=== PATIENT | female | born 1945 | race Caucasian/White ===

== ENCOUNTER 2016-11-16 13:11 | Inpatient (IN) | payer MEDICARE, OTHER ==
[2016-11-16] VITALS (8 sets, daily range): BP systolic 141–158; BP diastolic 78–82; PULSE 52–76; RESP 18–20; TEMP 98.1–99.1; O2SAT 94–98
[~2016-11-16] VITALS: Ht 157.5 cm; Wt 60.3 kg
[~2016-11-16 13:11] MED LIST: ACYC-101 PO; CALC1TAB30 PO; CLON.5 PO; DEPA250T2 PO; EFFE150C PO; ESTR2TAB4 PO; GABA300C5 PO; LACTCAP8 PO; LEVO75TA3 PO; MAGN500T4 PO; MULT-135 PO; NADO20TA PO; NALO1TAB2 PO; PRESCAP5 PO; REST0.05 EACH EYE; SERO50TA PO; STOO100C PO; TRAZ100T4 PO; [UNRECOGNIZED DRUG - CODE] IV
--- NOTE | 2016-11-16 14:23 | PD ---
HPI Chief Complaint: Respiratory Symptoms Time Seen by Provider: 14:06 Travel History International Travel<30 days: No Contact w/Intl Traveler<30days: No Traveled to known affect area: No History of Present Illness HPI 71 year-old woman presents emergency department complaining of 8 days of cough congestion and shortness of breath associated with some weight gain. She endorses subjective fevers and chills. Cough is nonproductive. She has had some associated chest pain with this as well. No definite sick contacts. She was given a prescription for some anti-tussis from her primary physician. No other complaints. History Past Medical History Narrative Medical Chronic back pain, with morphine pump, spinal stimulator Bipolar disorder Anxiety Mitral valve prolapse Menopausal: Yes Social History Alcohol Use: No Tobacco Use: No Allergies-Medications (Allergen,Severity, Reaction): Coded Allergies: Penicillin (Verified Allergy, Severe, hives, 11/16/16) Sulfa (Verified Allergy, Severe, hives, 11/16/16) Latex (Verified Allergy, Intermediate, rash, 11/16/16) Feldene (Verified Allergy, Unknown, 11/16/16) Flexeril (Unverified Adverse Reaction, Intermediate, PAU, 11/16/16) Vistaril (Unverified Adverse Reaction, Unknown, 11/16/16) Reported Meds & Prescriptions Reported Meds & Active Scripts Active Reported Vitamin D (Cholecalciferol) 2,000 Unit Cap 2,000 Units PO DAILY Epipen 2-Krish Inj (Epinephrine) 0.3 Mg/0.3 Ml Pfpen 0.3 Mg IM ONCE PRN Miralax Powder (Polyethylene Glycol 3350 Powder) 17 Gm Powd Unknown Dose PO DAILY PRN Mix and dissolve one measuring cap-ful (17 grams) in water or juice. Melatonin 3 Mg Cap 3 Mg PO HS Metamucil Original Texture (Psyllium Hydrophilic Mucilloid) 48.57 % Pow 1 Scoop PO BID 1 rounded TEASPOON in 8 oz of liquid at the first sign of irregularity. Biofreeze Topical (Menthol Topical) 4 % Gel 1 Applic TOPICAL DIRECTED PRN Colace (Docusate Sodium) 100 Mg Cap 100 Mg PO BID Zovirax (Acyclovir) 800 Mg Tab 800 Mg PO BID Morphine [employer]ECUTIVE [employer] PRESIDENT [employer]ES Inj (Morphine Sulfate) 30 Mg/30 Ml Vial Unknown Dose IV DIRECTED EXECUTIVE VICE PRESIDENT OF SALES Movantik (Naloxegol) 25 Mg Tab 25 Mg PO HS Probiotic (Lactobacillus Acidophilus) 1 Cap Cap 1 Cap PO DAILY Nadolol 20 Mg Tab 20 Mg PO DAILY Levothyroxine (Levothyroxine Sodium) 75 Mcg Tab 75 Mcg PO DAILY Gabapentin 300 Mg Cap 300 Mg PO BID Estrace (Estradiol) 2 Mg Tab 2 Mg PO DAILY Seroquel (Quetiapine Fumarate) 50 Mg Tab 50 Mg PO HS Klonopin (Clonazepam) 0.5 Mg Tab 0.5 Mg PO BID Effexor XR 24 HR (Venlafaxine HCl) 150 Mg Cap 150 Mg PO DAILY Depakote DR (Divalproex Sodium) 250 Mg Tabdr 750 Mg PO HS Restasis Opth Drops (Cyclosporine Opth Drops) 0.05% Emul 1 Drop EACH EYE BID Preservision Areds 2 (Multiple Vitamins W/ Minerals) 1 Cap 1 Cap PO BID Review of Systems Except as stated in HPI: all other systems reviewed are Neg Physical Exam Narrative GENERAL: Well-appearing 71 year-old woman, mild respiratory distress. Heavy, almost exaggerated breathing. SKIN: Warm and dry. HEAD: Atraumatic. Normocephalic. EYES: Pupils equal and round. No scleral icterus. No injection or drainage. ENT: No nasal bleeding or discharge. Mucous membranes pink and moist. NECK: Trachea midline. No JVD. CARDIOVASCULAR: Regular rate and rhythm. No murmur appreciated. RESPIRATORY: Lungs are clear to auscultation. Patient able to speak in full sentences. She has heavy, somewhat exaggerated breathing when being observed. GASTROINTESTINAL: Abdomen soft, non-tender, nondistended. Hepatic and splenic margins not palpable. MUSCULOSKELETAL: No obvious deformities. No edema. NEUROLOGICAL: Awake and alert. No obvious cranial nerve deficits. Motor grossly within normal limits. Normal speech. Data Data Last Documented VS Vital Signs Date Time Temp Pulse Resp B/P Pulse Ox O2 Delivery O2 Flow Rate FiO2 11/16/16 17:21 76 18 149/81 98 Room Air 11/16/16 13:29 99.1 Orders Complete Blood Count With Diff (11/16/16 14:16) Comprehensive Metabolic Panel (11/16/16 14:16) Troponin I (11/16/16 14:16) B-Type Natriuretic Peptide (11/16/16 14:16) Chest, Pa & Lat (11/16/16 ) Electrocardiogram (11/16/16 ) Iv Access Insert/Monitor (11/16/16 14:16) Furosemide Inj (Lasix Inj) (11/16/16 15:45) Ed Poc Ultrasound (11/16/16 ) Levofloxacin 750 Mg Premix Inj (Levaquin (11/16/16 16:30) Labs Laboratory Tests Test 11/16/16 14:55 White Blood Count 11.9 TH/MM3 Red Blood Count 2.95 MIL/MM3 Hemoglobin 9.7 GM/DL Hematocrit 28.8 % Mean Corpuscular Volume 97.8 FL Mean Corpuscular Hemoglobin 32.9 PG Mean Corpuscular Hemoglobin 33.6 % Concent Red Cell Distribution Width 12.3 % Platelet Count 582 TH/MM3 Mean Platelet Volume 7.1 FL Neutrophils (%) (Auto) 71.6 % Lymphocytes (%) (Auto) 13.3 % Monocytes (%) (Auto) 9.9 % Eosinophils (%) (Auto) 1.4 % Basophils (%) (Auto) 3.8 % Neutrophils # (Auto) 8.4 TH/MM3 Lymphocytes # (Auto) 1.6 TH/MM3 Monocytes # (Auto) 1.2 TH/MM3 Eosinophils # (Auto) 0.2 TH/MM3 Basophils # (Auto) 0.5 TH/MM3 CBC Comment DIFF FINAL Differential Comment Sodium Level 127 MEQ/L Potassium Level 4.3 MEQ/L Chloride Level 87 MEQ/L Carbon Dioxide Level 31.3 MEQ/L Anion Gap 9 MEQ/L Blood Urea Nitrogen 12 MG/DL Creatinine 0.62 MG/DL Estimat Glomerular Filtration 95 ML/MIN Rate Random Glucose 83 MG/DL Calcium Level 8.5 MG/DL Total Bilirubin 0.3 MG/DL Aspartate Amino Transf 17 U/L (AST/SGOT) Alanine Aminotransferase 24 U/L (ALT/SGPT) Alkaline Phosphatase 95 U/L Troponin I LESS THAN 0.02 NG/ML B-Type Natriuretic Peptide 166 PG/ML Total Protein 7.3 GM/DL Albumin 2.7 GM/DL [facility] Medical Decision Making Medical Screen Exam Complete: Yes Emergency Medical Condition: Yes Interpretation(s) LABS: CBC remarkable for mild anemia. CMP unremarkable Troponin negative BNP 166 Differential Diagnosis Bronchitis, pulmonary edema, anxiety, URI, other Narrative Course Medical decision making INITIAL: This a 71-year-old woman who presents to the emergency department complaining of cough congestion fevers chills shortness of breath and chest pain. She looks well. She doesn't really seem to be in any respiratory distress. She's been on Lasix intermittently in the past. She may have some element of fluid retention given her reported weight gain. We'll check labs EKG chest x-ray, reassess. Likely treatment for bronchitis plus or minus a short course of diuretics. Procedures Procedure Narrative Point of care ultrasound: Focus transthoracic ultrasounds performed immediate the bedside to evaluate for presence or absence of pleural effusion. Trace right pleural effusion was seen , moderate size left pleural effusion was seen, small to moderate pericardial effusion was seen. Diagnosis Primary Impression: Shortness of breath Additional Impressions: Pneumonia Qualified Code: J18.1 - Pneumonia of right lower lobe due to infectious organism Pleural effusion Jackson Winchester MD Nov 16, 2016 14:23
[2016-11-16] MEDS ORDERED: VITA200013 PO (14:55)
[2016-11-16] MEDS ORDERED: EPIP0.3I IM (14:55)
[2016-11-16] MEDS ORDERED: MELA3CAP PO (14:55)
[2016-11-16] MEDS ORDERED: COLA100C3 PO (14:55)
[2016-11-16] MEDS ORDERED: META48.53 PO (14:55)
[2016-11-16] MEDS ORDERED: MENT4GEL2 TOPICAL (14:55)
[2016-11-16] MEDS ORDERED: MIRA33504 PO (14:55)
[2016-11-16 15:13] LABS: AUTOMATED NEUTROPHIL # 8.4 TH/MM3 (1.8-7.7); BASOPHIL # 0.5 TH/MM3 (0-0.2); BASOPHIL % 3.8 % (0.0-2.0); CHLORIDE 87 MEQ/L (98-107); EOSINOPHIL # 0.2 TH/MM3 (0-0.4); EOSINOPHIL % 1.4 % (0.0-4.0); HEMATOCRIT 28.8 % (35.0-46.0); HEMO FLAGS DIFF FINAL; LYMPH % 13.3 % (9.0-44.0); LYMPHOCYTE # 1.6 TH/MM3 (1.0-4.8); MEAN CELL VOLUME 97.8 FL (80.0-100.0); MEAN CORPUSCULAR HEMOGLOBIN 32.9 PG (27.0-34.0); MEAN CORPUSCULAR HGB CONC 33.6 % (32.0-36.0); MONO % 9.9 % (0.0-8.0); NEUT % 71.6 % (16.0-70.0); PLATELET COUNT 582 TH/MM3 (150-450); POTASSIUM 4.3 MEQ/L (3.5-5.1); RED BLOOD COUNT 2.95 MIL/MM3 (4.00-5.30); RED CELL DISTRIBUTION WIDTH 12.3 % (11.6-17.2); SODIUM (NA) 127 MEQ/L (136-145); WHITE BLOOD COUNT 11.9 TH/MM3 (4.0-11.0)
[2016-11-16 15:18] LABS: ANION GAP 9 MEQ/L (5-15); BICARBONATE 31.3 MEQ/L (21.0-32.0); BLOOD UREA NITROGEN 12 MG/DL (7-18)
[2016-11-16 15:21] LABS: ALT (GPT) 24 U/L (10-53); AST (GOT) 17 U/L (15-37); GLOMERULAR FILTRATION RATE 95 ML/MIN (>89)
[2016-11-16 15:22] LABS: TOTAL BILIRUBIN ADULT 0.3 MG/DL (0.2-1.0)
[2016-11-16 15:23] LABS: ALKALINE PHOSPHATASE 95 U/L (45-117)
[2016-11-16] MEDS ORDERED: FUROSEMIDE 20 MG/2 ML VIAL IV PUSH ONE (15:45)
--- NOTE | 2016-11-16 15:45 | RADHPO ---
EXAM DATE/TIME: 11/16/2016 14:30 [facility] COMPARISON: CHEST SINGLE AP, March 27, 2016, 19:25. INDICATIONS : Short of breath. Cough, congestion. MEDICAL HISTORY : Hyperthyroidism. Inflammatory bowel disease. Osteoporosis. Asthma. Arthritis. SURGICAL HISTORY : Tonsillectomy. Fusion, lumbar. Hysterectomy. Spinal cord stimulator. Breast augumenntation. ENCOUNTER: Initial ACUITY: 3 days PAIN SCORE: 8/10 LOCATION: Left chest FINDINGS: There is consolidation in the left lower lobe causing loss of delineation of the entire left hemidiap hragm and most of the left heart border. Patchy areas of infiltrate are present in the medial right lower lung. The upper lungs are clear. The heart is normal size. Stimulation electrode projects ov er the lower thoracic region. CONCLUSION: Lobar consolidation in the left lower lobe and patchy areas of infiltrate medial right lower lung. Alonso Cruz MD on November 16, 2016 at 15:42 Board Certified Radiologist. This report was verified electronically.
[2016-11-16] MEDS ORDERED: LEVOFLOXACIN 750 MG PREMIX INJ 150 ML IV ONE (16:30)
[2016-11-16] MEDS ORDERED: ONDANSETRON HCL 4 MG/2 ML VIAL IV PRN (17:30)
[2016-11-16] MEDS ORDERED: guaiFENesin/DEXTROMETHORPHAN 200 MG/20 MG/10 ML CUP PO PRN (17:30)
[2016-11-16] MEDS ORDERED: SODIUM CHLORIDE 0.9% FLUSH 5 ML FLUSH IV FLUSH PRN (17:30)
[2016-11-16] MEDS: ENOXAPARIN SODIUM 40 MG/0.4 ML SYRINGE SQ SCH (18:16)
--- NOTE | 2016-11-16 20:47 | RADHPO ---
EXAM DATE/TIME: 11/16/2016 19:49 [facility] COMPARISON: CHEST PA & LAT, November 16, 2016, 14:30. INDICATIONS : Tightness in chest. Evaluate for pleural effusion. RADIATION DOSE: 6.70 CTDIvol (mGy) MEDICAL HISTORY : None SURGICAL HISTORY : tens. ENCOUNTER: Initial ACUITY: 3 days PAIN SCALE: 3/10 LOCATION: chest TECHNIQUE: Volumetric scanning of the chest was performed. Using automated exposure control and adjustment of t he mA and/or kV according to patient size, radiation dose was kept as low as reasonably achievable to obtain optimal diagnostic quality images. FINDINGS: LUNGS: There is consolidation in the left lower lobe with air bronchograms and no central lesion. PLEURAE: Bilateral posterior layering pleural effusions are appreciated small on the right in the base and mil d on the left.. MEDIASTINUM: The heart and great vessels demonstrate no acute abnormality. There is no mediastinal or hilar lymph adenopathy. Moderate volume pericardial effusion. AXILLAE: Within normal limits. No lymphadenopathy. MUSCULOSKELETAL: Within normal limits for patient age. MISCELLANEOUS: The visualized upper abdominal organs demonstrate no acute abnormality. CONCLUSION: Left lower lobe consolidation with air bronchograms. No central obstructing lesion. Bilateral pleural effusions slightly larger on the left than the right. Moderate to large sized pericardial effusion. Scott Messina MD on November 16, 2016 at 20:43 Board Certified Radiologist. This report was verified electronically.
[2016-11-16] MEDS: SODIUM CHLORIDE 0.9% FLUSH 5 ML FLUSH IV FLUSH SCH (20:49)
[2016-11-16] MEDS: RESP: ALBUTEROL 2.5 MG/IPRATROPIUM 0.5 MG NEB (PRN) INH (23:12)
[2016-11-17] VITALS (8 sets, daily range): BP systolic 130–164; BP diastolic 70–83; PULSE 59–82; RESP 18–20; TEMP 97.8–98.4; O2SAT 93–99
[2016-11-17] MEDS ORDERED: DOCUSATE SODIUM 100 MG CAP PO SCH (00:45)
[2016-11-17] MEDS ORDERED: QUEtiapine FUMARATE 25 MG TAB PO SCH (00:45)
[2016-11-17] MEDS ORDERED: clonazePAM 0.5 MG TAB PO ONE (01:00)
[2016-11-17] MEDS ORDERED: IBUPROFEN 400 MG TAB PO ONE (01:00)
[2016-11-17] MEDS: QUEtiapine FUMARATE 25 MG TAB PO SCH ×2 (01:17→20:26)
[2016-11-17] MEDS: GABAPENTIN 300 MG CAP PO SCH ×3 (01:18→20:26)
[2016-11-17] MEDS: ACYCLOVIR 800 MG TAB PO SCH ×3 (01:18→20:26)
[2016-11-17] MEDS: DIVALPROEX SODIUM DELAYED RELEASE 250 MG TAB PO SCH ×2 (01:18→20:27)
[2016-11-17] MEDS: LEVOTHYROXINE SODIUM 75 MCG TAB PO SCH (05:42)
[2016-11-17] MEDS: RESP: ALBUTEROL 2.5 MG/IPRATROPIUM 0.5 MG NEB (PRN) INH ×4 (06:14→21:18)
[2016-11-17] MEDS: DOCUSATE SODIUM 100 MG CAP PO SCH ×2 (09:00→20:26)
[2016-11-17] MEDS: VENLAFAXINE HCL XR 75 MG CAP PO SCH (09:00)
[2016-11-17] MEDS: LACTOBACILLUS ACIDOPHILUS TAB PO SCH (09:00)
[2016-11-17 09:02] LABS: AUTOMATED NEUTROPHIL # 6.1 TH/MM3 (1.8-7.7); BASOPHIL # 0.3 TH/MM3 (0-0.2); BASOPHIL % 2.8 % (0.0-2.0); EOSINOPHIL # 0.2 TH/MM3 (0-0.4); HEMATOCRIT 29.3 % (35.0-46.0); LYMPH % 21.7 % (9.0-44.0); LYMPHOCYTE # 2.1 TH/MM3 (1.0-4.8); MEAN CELL VOLUME 98.9 FL (80.0-100.0); MEAN CORPUSCULAR HGB CONC 33.3 % (32.0-36.0); MONO % 11.6 % (0.0-8.0); NEUT % 61.9 % (16.0-70.0); PLATELET COUNT 560 TH/MM3 (150-450); RED BLOOD COUNT 2.97 MIL/MM3 (4.00-5.30); RED CELL DISTRIBUTION WIDTH 12.6 % (11.6-17.2); WHITE BLOOD COUNT 9.8 TH/MM3 (4.0-11.0)
[2016-11-17 09:03] LABS: HEMO FLAGS DIFF FINAL
[2016-11-17] MEDS: NADOLOL 20 MG TAB PO SCH (09:08)
[2016-11-17] MEDS: clonazePAM 0.5 MG TAB PO SCH ×2 (09:09→20:26)
[2016-11-17] MEDS: SODIUM CHLORIDE 0.9% FLUSH 5 ML FLUSH IV FLUSH SCH ×2 (09:10→20:29)
[2016-11-17 09:15] LABS: POTASSIUM 4.5 MEQ/L (3.5-5.1)
[2016-11-17 09:18] LABS: BICARBONATE 33.7 MEQ/L (21.0-32.0)
--- NOTE | 2016-11-17 10:01 | HHI.HP ---
[facility] Service [place] [facility] Primary Care Physician Non-Staff Admission Diagnosis shortness of breath, pneumonia, pleural effusion Diagnoses: Chief Complaint: Chest pressure Travel History International Travel<30 Days: No Contact w/Intl Traveler <30 Da: No Traveled to Known Affected Are: No History of Present Illness Patient is a 71-year-old female with a known history of chronic back pain who recently had a viral syndrome. 8 days ago she saw her primary care provider for symptoms of upper respiratory tract infection. She was given Flonase and Tessalon Perles she is better however she began having subjective fevers and chills and some chest pressure which was worse when she was lying down for the last 3 days. 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 Patient did come to the emergency room and was found to have a pleural effusion as well as Miki effusion. On my review of CT thorax there is a moderate pericardial effusion initially. Patient did have signs and symptoms consistent with this including difficulty with lying down and the chest pressure located above the heart silhouette. She also had improvement of symptoms when she stood up or walked around. She is not hypoxemic or blood pressure stable. Patient is recommended for further evaluation the hospital due to possible parapneumonic effusion and pericardial effusion. Review of Systems Constitutional: DENIES: Diaphoretic episodes, Fatigue, Fever, Weight gain, Weight loss, Chills, Dizziness, Change in appetite, Night Sweats Endocrine: DENIES: Abnorml menstrual pattern, Heat/cold intolerance, Polydipsia , Polyuria, Polyphagia Eyes: DENIES: Blurred vision, Diplopia, Eye inflammation, Eye pain, Vision loss , Photosensitivity, Double Vision Ears, nose, mouth, throat: DENIES: Tinnitus, Hearing loss, Vertigo, Nasal discharge, Oral lesions, Throat pain, Hoarseness, Ear Pain, Running Nose, Epistaxis, Sinus Pain, Toothache, Odynophagia Respiratory: DENIES: Apneas, Cough, Snoring, Wheezing, Hemoptysis, Sputum production, Shortness of breath Cardiovascular: COMPLAINS OF: Chest pain, Dyspnea on Exertion Gastrointestinal: DENIES: Abdominal pain, Black stools, Bloody stools, Constipation, Diarrhea, Nausea, Vomiting, Difficulty Swallowing, Anorexia Genitourinary: DENIES: Abnormal vaginal bleeding, Dysmenorrhea, Dyspareunia, Sexual dysfunction, Urinary frequency, Urinary incontinence, Urgency, Hematuria , Dysuria, Nocturia, Vaginal discharge Musculoskeletal: DENIES: Joint pain, Muscle aches, Stiffness, Joint Swelling, Back pain, Neck pain Integumentary: DENIES: Abnormal pigmentation, Pruritus, Rash, Nail changes, Breast masses, Breast skin changes, Nipple discharge Hematologic/lymphatic: DENIES: Bruising, Lymphadenopathy Immunologic/allergic: DENIES: Eczema, Urticaria Neurologic: DENIES: Abnormal gait, Headache, Localized weakness, Paresthesias, Seizures, Speech Problems, Tremor, Poor Balance Psychiatric: COMPLAINS OF: Anxiety, DENIES: Confusion, Mood changes, Depression, Hallucinations, Agitation, Suicidal Ideation, Homicidal Ideation, Delusions Past Family Social History Past Medical History Back pain, bipolar disorder, hypothyroidism Past Surgical History Back surgery Morphine pump Reported Medications Reviewed in the medical record, recently was given Flonase and Tessalon for viral syndrome Allergies: Coded Allergies: Penicillin (Verified Allergy, Severe, hives, 11/16/16) Sulfa (Verified Allergy, Severe, hives, 11/16/16) Latex (Verified Allergy, Intermediate, rash, 11/16/16) Feldene (Verified Allergy, Unknown, 11/16/16) Flexeril (Unverified Adverse Reaction, Intermediate, PAU, 11/16/16) Vistaril (Unverified Adverse Reaction, Unknown, 11/16/16) Active Ordered Medications Reviewed in the medical record Family History Mother had hypertension Social History Lives with her , no tobacco or alcohol dependency Physical Exam Vital Signs Vital Signs Date Time Temp Pulse Resp B/P Pulse Ox O2 Delivery O2 Flow Rate FiO2 11/17/16 08:00 98.0 77 18 134/83 93 11/17/16 04:00 98.1 70 20 145/70 95 11/17/16 00:00 98.1 74 20 150/75 94 11/16/16 22:24 98.1 74 20 150/78 94 11/16/16 22:13 74 18 98 11/16/16 22:12 74 18 141/81 98 Room Air 11/16/16 20:44 74 18 147/80 98 Room Air 11/16/16 20:04 98 21 11/16/16 19:49 76 18 145/82 97 Room Air 11/16/16 19:48 18 97 Room Air 21 11/16/16 17:21 76 18 149/81 98 Room Air 11/16/16 17:00 98 21 11/16/16 13:29 99.1 52 18 158/80 95 Physical Exam GENERAL: This is a well-nourished, well-developed patient, in no apparent distress. SKIN: No rashes, ecchymoses or lesions. Cool and dry. HEAD: Atraumatic. Normocephalic. No temporal or scalp tenderness. EYES: Pupils equal round and reactive. Extraocular motions intact. No scleral icterus. No injection or drainage. ENT: Nose without bleeding, purulent drainage or septal hematoma. Throat without erythema, tonsillar hypertrophy or exudate. Uvula midline. Airway patent. NECK: Trachea midline. No JVD or lymphadenopathy. Supple, nontender, no meningeal signs. CARDIOVASCULAR: No murmurs gallops or rubs, clear S1 in 2/not muffled RESPIRATORY: Decreased breath sounds left base GASTROINTESTINAL: Abdomen soft, non-tender, nondistended. No hepato-splenomegaly , or palpable masses. No guarding. MUSCULOSKELETAL: Extremities without clubbing, cyanosis, or edema. No joint tenderness, effusion, or edema noted. No calf tenderness. Negative Homans sign bilaterally. NEUROLOGICAL: Awake and alert. Cranial nerves II through XII intact. Motor and sensory grossly within normal limits. Five out of 5 muscle strength in all muscle groups. Normal speech. Laboratory Laboratory Tests Test 11/16/16 11/17/16 14:55 08:50 White Blood Count 11.9 9.8 Red Blood Count 2.95 2.97 Hemoglobin 9.7 9.8 Hematocrit 28.8 29.3 Mean Corpuscular Volume 97.8 98.9 Mean Corpuscular Hemoglobin 32.9 33.0 Mean Corpuscular Hemoglobin 33.6 33.3 Concent Red Cell Distribution Width 12.3 12.6 Platelet Count 582 560 Mean Platelet Volume 7.1 7.0 Neutrophils (%) (Auto) 71.6 61.9 Lymphocytes (%) (Auto) 13.3 21.7 Monocytes (%) (Auto) 9.9 11.6 Eosinophils (%) (Auto) 1.4 2.0 Basophils (%) (Auto) 3.8 2.8 Neutrophils # (Auto) 8.4 6.1 Lymphocytes # (Auto) 1.6 2.1 Monocytes # (Auto) 1.2 1.1 Eosinophils # (Auto) 0.2 0.2 Basophils # (Auto) 0.5 0.3 CBC Comment DIFF FINAL DIFF FINAL Differential Comment Sodium Level 127 129 Potassium Level 4.3 4.5 Chloride Level 87 88 Carbon Dioxide Level 31.3 33.7 Anion Gap 9 7 Blood Urea Nitrogen 12 16 Creatinine 0.62 0.55 Estimat Glomerular Filtration 95 110 Rate Random Glucose 83 79 Calcium Level 8.5 8.4 Total Bilirubin 0.3 Aspartate Amino Transf 17 (AST/SGOT) Alanine Aminotransferase 24 (ALT/SGPT) Alkaline Phosphatase 95 Troponin I LESS THAN 0.02 B-Type Natriuretic Peptide 166 Total Protein 7.3 Albumin 2.7 Result Diagram: 11/17/16 0850 11/17/16 0850 Imaging Last Impressions Chest X-Ray 11/16/16 0000 Signed Impressions: Service Date/Time: October 14:30 - CONCLUSION: Lobar consolidation in the left lower lobe and patchy areas of infiltrate medial right lower lung. Alonso Cruz MD Chest CT 11/16/16 0000 Signed Impressions: Service Date/Time: October 19:49 - CONCLUSION: Left lower lobe consolidation with air bronchograms. No central obstructing lesion. Bilateral pleural effusions slightly larger on the left than the right. Moderate to large sized pericardial effusion. Scott Messina MD Assessment and Plan Problem List: (1) Pericardial effusion ICD Code: I31.3 Status: Acute Plan: Likely post viral 2 d echo pending Symptoms better after lasix Will follow for cardiac intervention s needed, currently BP and Resp are stable (2) Pneumonia ICD Code: J18.9 Status: Acute Plan: Cont levaquin follow clinically (3) Pleural effusion ICD Code: J90 Status: Acute Plan: Parapneumonic effusion Cont to treat with iv levaquin (4) Chronic pain syndrome ICD Code: G89.4 Status: Chronic Plan: Patient's with intrathecal pump and with home medications which will continue while here in the hospital (5) Bipolar 1 disorder ICD Code: F31.9 Status: Chronic Plan: We'll continue with home medications Seroquel, Klonopin, Effexor, Depakote Currently at baseline (6) Hyponatremia ICD Code: E87.1 Status: Acute Plan: Likely due to postviral syndrome and pneumonia. We'll continue to follow trend (7) Anemia ICD Code: D64.9 Status: Acute Plan: Likely chronic, workup in progress Physician Certification 2 Midnight Certification Type: Admission for Inpatient Services Order for Inpatient Services The services are ordered in accordance with Medicare regulations or non- Medicare payer requirements, as applicable. In the case of services not specified as inpatient-only, they are appropriately provided as inpatient services in accordance with the 2-midnight benchmark. Estimated LOS (days): 3 3 days is the estimated time the patient will need to remain in the hospital, assuming treatment plan goals are met and no additional complications. Post-Hospital Plan: Home Problem Qualifiers (1) Pneumonia: Qualified Code: J18.1 - Pneumonia of right lower lobe due to infectious organism Ariella Trent MD Nov 17, 2016 10:01
[2016-11-17] MEDS: LEVOFLOXACIN 750 MG PREMIX INJ 150 ML IV SCH (16:22)
[2016-11-17] MEDS: FAMOTIDINE 20 MG TAB PO SCH (16:22)
[2016-11-17] MEDS: ENOXAPARIN SODIUM 40 MG/0.4 ML SYRINGE SQ SCH (16:22)
[2016-11-17] MEDS: ACETAMINOPHEN 500 MG CPLT PO PRN (16:22)
--- NOTE | 2016-11-17 17:26 | EKG ---
Date Performed: 11/16/2016 Time Performed: 14:22:52 PTAGE: 71 years EKG: Sinus rhythm Short FL interval Extensive T wave changes are nonspecific Borderline ECG PREVIOUS TRACING : 03/27/2016 19.23 Since previous tracing, no significant change noted DOCTOR: Jasmine Lemus Interpretating Date/Time 11/17/2016 17:20:25
[2016-11-17] MEDS ORDERED: POLYETHYLENE GLYCOL 17 GM PKG PO ONE (20:00)
[2016-11-17] MEDS: RESTASIS 0.05% EACH EYE SCH (20:28)
[2016-11-17] MEDS: MOVANTIK 25 MG PO SCH (20:28)
[2016-11-17] MEDS ORDERED: DIVALPROEX SODIUM DELAYED RELEASE 250 MG TAB PO SCH (21:00)
[2016-11-18 00:15] VITALS: BP 155/85; PULSE 70; RESP 16; TEMP 98.6; O2SAT 97
[2016-11-18] MEDS: LEVOTHYROXINE SODIUM 75 MCG TAB PO SCH (06:22)
[2016-11-18] MEDS: RESP: ALBUTEROL 2.5 MG/IPRATROPIUM 0.5 MG NEB (PRN) INH ×4 (06:35→19:40)
[2016-11-18 08:00] VITALS: BP 143/83; PULSE 80; RESP 18; TEMP 95.8; O2SAT 95
[2016-11-18] MEDS: VENLAFAXINE HCL XR 75 MG CAP PO SCH (08:32)
[2016-11-18] MEDS: DOCUSATE SODIUM 100 MG CAP PO SCH (08:32)
[2016-11-18] MEDS: LACTOBACILLUS ACIDOPHILUS TAB PO SCH (08:33)
[2016-11-18] MEDS: GABAPENTIN 300 MG CAP PO SCH ×2 (08:33→21:10)
[2016-11-18] MEDS: NADOLOL 20 MG TAB PO SCH (08:33)
[2016-11-18] MEDS: clonazePAM 0.5 MG TAB PO SCH ×2 (08:34→21:10)
[2016-11-18] MEDS: ACYCLOVIR 800 MG TAB PO SCH ×2 (08:34→21:10)
[2016-11-18] MEDS: FAMOTIDINE 20 MG TAB PO SCH (08:34)
[2016-11-18] MEDS: RESTASIS 0.05% EACH EYE SCH ×2 (08:36→21:24)
[2016-11-18] MEDS: FUROSEMIDE 40 MG/4 ML VIAL IV PUSH SCH (08:37)
[2016-11-18] MEDS: SODIUM CHLORIDE 0.9% FLUSH 5 ML FLUSH IV FLUSH SCH ×2 (08:37→21:16)
[2016-11-18 08:50] LABS: CHLORIDE 88 MEQ/L (98-107); POTASSIUM 4.4 MEQ/L (3.5-5.1); SODIUM (NA) 128 MEQ/L (136-145)
[2016-11-18 08:54] LABS: ANION GAP 10 MEQ/L (5-15); BICARBONATE 30.1 MEQ/L (21.0-32.0); BLOOD UREA NITROGEN 24 MG/DL (7-18)
[2016-11-18 08:57] LABS: GLOMERULAR FILTRATION RATE 87 ML/MIN (>89)
[2016-11-18] MEDS ORDERED: POLYETHYLENE GLYCOL 17 GM PKG PO SCH (09:00)
--- NOTE | 2016-11-18 11:56 | EC ---
Study Study Date:11/17/2016 STUDY CONCLUSIONS SUMMARY - Procedure narrative: Transthoracic echocardiography. Image quality was good. Scanning was performed from the parasternal, apical, and subcostal acoustic windows. - Left ventricle: The cavity size was normal. Wall thickness was normal. Systolic function was normal. The estimated ejection fraction was in the range of 50% to 55%. Wall motion was normal; there were no regional wall motion abnormalities. - Aortic valve: Mild regurgitation. - Mitral valve: Trace regurgitation. - Pericardium, extracardiac: Moderate sized circumferential pericardial effusion with no echocardiographic evidence for tamponade. Specifically there is no right ventricular diastolic collapse, right atrial invagination, or variation in mitral E wave velocities greater than 25%. There is also a left pleural effusion. If LV function is below 40, please consider prescribing an ACEI or ARB or document rationale for non-use. PROCEDURE DATA STUDY STATUS: Elective. Procedure: Transthoracic echocardiography. Image quality was good. Scanning was performed from the parasternal, apical, and subcostal acoustic windows. Study completion: The patient tolerated the procedure well. Transthoracic echocardiography. M-mode, complete 2D, complete spectral Doppler, and color Doppler. Patient status: Inpatient. CARDIAC ANATOMY LEFT VENTRICLE: The cavity size was normal. Wall thickness was normal. Systolic function was normal. The estimated ejection fraction was in the range of 50% to 55%. Wall motion was normal; there were no regional wall motion abnormalities. AORTIC VALVE: Trileaflet; normal thickness leaflets. Doppler: Transvalvular velocity was within the normal range. There was no stenosis. Mild regurgitation. AORTA: Aortic root: The aortic root was normal in size. MITRAL VALVE: Structurally normal valve. Doppler: Transvalvular velocity was within the normal range. There was no evidence for stenosis. Trace regurgitation. LEFT ATRIUM: The atrium was normal in size. RIGHT VENTRICLE: The cavity size was normal. Wall thickness was normal. PULMONIC VALVE: Doppler: Transvalvular velocity was within the normal range. There was no evidence for stenosis. No regurgitation. TRICUSPID VALVE: Structurally normal valve. Doppler: Transvalvular velocity was within the normal range. No regurgitation. PULMONARY ARTERY: The main pulmonary artery was normal-sized. Systolic pressure was within the normal range. RIGHT ATRIUM: The atrium was normal in size. PERICARDIUM: Moderate sized circumferential pericardial effusion with no echocardiographic evidence for tamponade. Specifically there is no right ventricular diastolic collapse, right atrial invagination, or variation in mitral E wave velocities greater than 25%. There is also a left pleural effusion. SYSTEMIC VEINS: Inferior vena cava: The vessel was normal in size. Prepared and signed by Shaheed Villafuerte [id number]
[2016-11-18 12:00] VITALS: BP 138/80; PULSE 74; RESP 18; TEMP 97.8; O2SAT 95
[2016-11-18 12:13] LABS: TRANSFERRIN IRON PROFILE 171 MG/DL (200-360)
[2016-11-18 16:00] VITALS: BP 129/71; PULSE 56; RESP 20; TEMP 97.8; O2SAT 94
--- NOTE | 2016-11-18 16:56 | HHI.PR ---
Subjective Remarks Seen in follow-up for symptom pericardial effusion. Chest discomfort is better. Improved respiratory status. No hypoxemia no evidence of cardiac troponin on. Echocardiogram results reviewed with patient and she is requesting her ski molder to evaluate her which will be done. He also says she's having some leg spasms and will need medication for that. I did suggest patient try nonpharmacological therapy as she has polypharmacy already. Objective Vitals Vital Signs Date Time Temp Pulse Resp B/P Pulse Ox O2 Delivery O2 Flow Rate FiO2 11/18/16 12:00 97.8 74 18 138/80 95 11/18/16 08:00 95.8 80 18 143/83 95 11/18/16 04:00 11/18/16 00:15 98.6 70 16 155/85 97 11/17/16 21:18 95 21 11/17/16 20:00 98.1 59 18 164/75 98 I/O 11/17/16 11/17/16 11/17/16 11/18/16 11/18/16 11/18/16 07:00 15:00 23:00 07:00 15:00 23:00 Intake Total 840 ml 280 ml 720 ml Output Total 1 ml Balance 840 ml 280 ml 720 ml -1 ml Intake Oral 840 ml 280 ml 720 ml Stool Total 1 ml # Voids 5 6 1 # Bowel Movements 0 1 Result Diagram: 11/17/16 0850 11/18/16 0721 Objective Remarks GENERAL: This is a well-nourished, well-developed patient, in no apparent distress. CARDIOVASCULAR: Regular rate and rhythm without murmurs, gallops, or rubs. RESPIRATORY: Clear to auscultation. Breath sounds equal bilaterally. No wheezes , rales, or rhonchi. GASTROINTESTINAL: Abdomen soft, non-tender, nondistended. Normal active bowel sounds MUSCULOSKELETAL: Extremities without clubbing, cyanosis, or edema. NEURO: Alert & Oriented x4 to person, place, time, situation. Moves all ext x4 A/P Problem List: (1) Pericardial effusion ICD Code: I31.3 Status: Acute Plan: Likely post viral 2 d echo shows moderate pericardial effusion without tamponade, patient reports cardiac consultation Continue medical management Symptoms better after lasix Will follow for cardiac intervention s needed, currently BP and Resp status are stable (2) Pneumonia ICD Code: J18.9 Status: Acute (3) Pleural effusion ICD Code: J90 Status: Acute Plan: Status post Lasix, improved Cont to treat with iv levaquin (4) Chronic pain syndrome ICD Code: G89.4 Status: Chronic Plan: Patient's with intrathecal pump and with home medications which will continue while here in the hospital (5) Bipolar 1 disorder ICD Code: F31.9 Status: Chronic Plan: We'll continue with home medications Seroquel, Klonopin, Effexor, Depakote Currently at baseline (6) Hyponatremia ICD Code: E87.1 Status: Acute Plan: Improved Likely due to postviral syndrome and pneumonia. We'll continue to follow trend (7) Anemia ICD Code: D64.9 Status: Acute Plan: Likely chronic Chronic disease Problem Qualifiers (1) Pneumonia: Qualified Code: J18.1 - Pneumonia of right lower lobe due to infectious organism Ariella Trent MD Nov 18, 2016 16:56
[2016-11-18] MEDS: ENOXAPARIN SODIUM 40 MG/0.4 ML SYRINGE SQ SCH (17:18)
[2016-11-18] MEDS: LEVOFLOXACIN 750 MG PREMIX INJ 150 ML IV SCH (17:18)
[2016-11-18] MEDS: ACETAMINOPHEN 500 MG CPLT PO PRN (18:47)
[2016-11-18 19:40] VITALS: O2SAT 96
[2016-11-18 20:00] VITALS: BP 143/77; PULSE 74; RESP 18; TEMP 96.3; O2SAT 96
[2016-11-18] MEDS: QUEtiapine FUMARATE 25 MG TAB PO SCH (21:10)
[2016-11-18] MEDS: MOVANTIK 25 MG PO SCH (21:11)
[2016-11-18] MEDS: DIVALPROEX SODIUM DELAYED RELEASE 250 MG TAB PO SCH (21:14)
[2016-11-19 00:15] VITALS: BP 173/84; PULSE 66; RESP 20; TEMP 97.2; O2SAT 94
[2016-11-19 04:00] VITALS: BP 163/85; PULSE 67; RESP 18; TEMP 98.6; O2SAT 98
[2016-11-19] MEDS: LEVOTHYROXINE SODIUM 75 MCG TAB PO SCH (05:18)
[2016-11-19 08:00] VITALS: BP 150/93; PULSE 63; RESP 18; TEMP 96.9; O2SAT 97
[2016-11-19] MEDS ORDERED: SODIUM CHLORIDE 0.65% NASAL SPRAY 45 ML BTL EACH NARE PRN (08:15)
--- NOTE | 2016-11-19 08:23 | HHI.PR ---
Subjective Remarks Patient seen and evaluated today. Complaining of some sinus congestion and requesting Flonase nasal spray which she uses at home. Still complaining of some chest pressure regarding her breathing very deeply. Her blood pressure and oxygenation are not compromised at this point. Patient does likely have a viral related pericardial effusion and we are waiting cardiology follow-up for further recommendations Objective Vitals Vital Signs Date Time Temp Pulse Resp B/P Pulse Ox O2 Delivery O2 Flow Rate FiO2 11/19/16 04:00 98.6 67 18 163/85 98 11/19/16 00:15 97.2 66 20 173/84 94 11/18/16 20:00 96.3 74 18 143/77 96 11/18/16 19:47 20 11/18/16 19:40 96 21 11/18/16 16:00 97.8 56 20 129/71 94 11/18/16 12:00 97.8 74 18 138/80 95 I/O 11/18/16 11/18/16 11/18/16 11/19/16 11/19/16 11/19/16 07:00 15:00 23:00 07:00 15:00 23:00 Intake Total 720 ml 720 ml 0 ml Output Total 1 ml Balance 720 ml -1 ml 720 ml 0 ml Intake Oral 720 ml 720 ml IV Total 0 ml Stool Total 1 ml # Voids 6 1 5 # Bowel Movements 1 0 Result Diagram: 11/17/16 0850 11/18/16 0721 Objective Remarks GENERAL: This is a well-nourished, well-developed patient, in no apparent distress. CARDIOVASCULAR: Regular rate and rhythm without murmurs, gallops, or rubs. RESPIRATORY: Clear to auscultation. Breath sounds equal bilaterally. No wheezes , rales, or rhonchi. GASTROINTESTINAL: Abdomen soft, non-tender, nondistended. Normal active bowel sounds MUSCULOSKELETAL: Extremities without clubbing, cyanosis, or edema. NEURO: Alert & Oriented x4 to person, place, time, situation. Moves all ext x4 A/P Problem List: (1) Pericardial effusion ICD Code: I31.3 Status: Acute Plan: Likely post viral 2 d echo shows moderate pericardial effusion without tamponade, patient reports cardiac consultation Continue medical management Symptoms better after lasix Will follow for cardiac intervention as needed, currently BP and Resp status are stable (2) Pneumonia ICD Code: J18.9 Status: Acute Plan: Continue Levaquin IV for now (3) Pleural effusion ICD Code: J90 Status: Acute Plan: Status post Lasix, improved Cont to treat with iv levaquin Repeat chest x-ray pending (4) Chronic pain syndrome ICD Code: G89.4 Status: Chronic Plan: Patient's with intrathecal pump and with home medications which will continue while here in the hospital (5) Bipolar 1 disorder ICD Code: F31.9 Status: Chronic Plan: We'll continue with home medications Seroquel, Klonopin, Effexor, Depakote Currently at baseline (6) Hyponatremia ICD Code: E87.1 Status: Acute Plan: Improved Likely due to postviral syndrome and pneumonia. We'll continue to follow trend (7) Anemia ICD Code: D64.9 Status: Acute Plan: Likely chronic Chronic disease Problem Qualifiers (1) Pneumonia: Qualified Code: J18.1 - Pneumonia of right lower lobe due to infectious organism Ariella Trent MD Nov 19, 2016 08:23
[2016-11-19] MEDS: GABAPENTIN 300 MG CAP PO SCH (08:34)
[2016-11-19] MEDS: ACYCLOVIR 800 MG TAB PO SCH (08:35)
[2016-11-19] MEDS: clonazePAM 0.5 MG TAB PO SCH (08:35)
[2016-11-19] MEDS: LACTOBACILLUS ACIDOPHILUS TAB PO SCH (08:35)
[2016-11-19] MEDS: NADOLOL 20 MG TAB PO SCH (08:35)
[2016-11-19] MEDS: FAMOTIDINE 20 MG TAB PO SCH (08:35)
[2016-11-19] MEDS: VENLAFAXINE HCL XR 75 MG CAP PO SCH (08:36)
[2016-11-19] MEDS: FUROSEMIDE 40 MG/4 ML VIAL IV PUSH SCH (08:38)
[2016-11-19] MEDS: SODIUM CHLORIDE 0.9% FLUSH 5 ML FLUSH IV FLUSH SCH (08:41)
[2016-11-19] MEDS: RESTASIS 0.05% EACH EYE SCH (08:47)
[2016-11-19] MEDS ORDERED: FLUTICASONE PROPIONATE 50 MCG/ACT 16 GM NASAL SPRAY NASAL SCH (10:00)
--- NOTE | 2016-11-19 10:05 | MB ---
cc: RONEL MEMBRENO M.D. DATE OF CONSULTATION: 11/19/2016 REASON FOR CONSULTATION Pericardial effusion. HISTORY OF PRESENT ILLNESS The patient is a 71-year-old white female, apparently followed in our office by Dr. Sergio Goldman according to the patient, with a history of hypothyroidism, bipolar disorder, who presented to the emergency room in [place] mainly with complaints of increasing shortness of breath over the last several days, as well as a nonproductive cough, subjective fevers and chills. She denies hemoptysis. Over these last several days she has had a constant left upper chest heaviness which does increase when she takes deep breaths. Since coming into the hospital her dyspnea has improved. She denies dizziness, syncope, near-syncope, palpitations, pedal edema, orthopnea. PAST MEDICAL HISTORY 1. Hypothyroidism. 2. Bipolar disorder. 3. Chronic back pain. PAST SURGICAL HISTORY 1. DINESH-BSO. 2. Tonsillectomy and adenoidectomy. 3. Transfer of external rotator of the right hip the piriformis and release of the gemellus and piriformis muscles 03/24/03. 4. Spinal cord stimulator 1999 with two subsequent generator changes since that time. MEDICATIONS Cardiac medications at home: Nadolol 20 mg daily. ALLERGIES VISTARIL, FLEXERIL, FELDENE, LATEX, SULFA, PENICILLIN. FAMILY HISTORY The patient's mother sustained a stroke and had a pacemaker. SOCIAL HISTORY The patient denies alcohol or tobacco abuse. REVIEW OF SYSTEMS Review of systems as in the history of present illness, otherwise negative or noncontributory. She also denies headache or abdominal pain, diarrhea, melena, bright red blood per rectum. PHYSICAL EXAMINATION VITAL SIGNS: On physical examination her blood pressure is 163/85 with a pulse of 67, respirations 18. GENERAL: She is a well-developed, well-nourished white female, in no acute distress. HEENT: Jugular venous pressure is normal. Carotid pulses are 2+ bilaterally and without bruits. CHEST: Examination of the chest reveals clear lung welch. CARDIAC: On cardiac examination she has a regular rhythm and rate without S3-S4, murmur or rub. ABDOMEN: On abdominal examination she has a soft, nontender abdomen. Bowel sounds are present. There is no definite hepatosplenomegaly. EXTREMITIES: Examination of the extremities reveals no clubbing, cyanosis or edema. LABORATORY DATA Laboratory data includes WBC 9.8, hemoglobin 9.8, platelets 560, potassium 4.4, BUN 24, creatinine 0.67, troponin less than 0.02. IMAGING STUDIES Chest x-ray shows lobar consolidation in the left lower lobe and patchy areas of infiltrate in the medial right lower lung. EKG Shows sinus rhythm, nonspecific diffuse T-wave abnormalities. IMPRESSION Moderate-sized circumferential pericardial effusion with no evidence for tamponade in this 71-year-old white female with a history of hypothyroidism, bipolar disorder. The etiology of the pericardial effusion may be viral infection. She has had viral syndrome over the last few days. She has been afebrile with no evidence for leukocytosis here in the hospital. There is no evidence for acute coronary syndrome. The rest of her echocardiogram is unremarkable. No definite rub is audible on exam. Her EKG is not consistent with pericarditis. RECOMMENDATIONS 1. She can be discharged home today from a cardiac standpoint. 2. I have recommended she undergo repeat echo in about 3-4 weeks to make sure the pericardial fluid is decreasing in amount. Will have my office arrange this echo tomorrow. MD DOMENICA Corbett/MICHAEL /9:34 AM /9:54 AM JESSICA
[2016-11-19 12:00] VITALS: BP 138/75; PULSE 66; RESP 18; TEMP 97.4; O2SAT 98
[2016-11-19] MEDS: RESP: ALBUTEROL 2.5 MG/IPRATROPIUM 0.5 MG NEB (PRN) INH (13:22)
[2016-11-19 13:24] VITALS: O2SAT 97
--- NOTE | 2016-12-20 22:06 | HHI.DS ---
Discharge Summary Admission Date Nov 16, 2016 at 17:27 Discharge Date: Nov 19, 2016 Admitting Diagnosis shortness of breath, pneumonia, pleural effusion (1) Pericardial effusion ICD Code: I31.3 (2) Pneumonia ICD Code: J18.9 (3) Pleural effusion ICD Code: J90 (4) Chronic pain syndrome ICD Code: G89.4 (5) Bipolar 1 disorder ICD Code: F31.9 (6) Hyponatremia ICD Code: E87.1 (7) Anemia ICD Code: D64.9 Procedures none Brief History - From Admission Patient is a 71-year-old female with a known history of chronic back pain who recently had a viral syndrome. 8 days ago she saw her primary care provider for symptoms of upper respiratory tract infection. She was given Flonase and Tessalon Perles she is better however she began having subjective fevers and chills and some chest pressure which was worse when she was lying down for the last 3 days. 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 Patient did come to the emergency room and was found to have a pleural effusion as well as Miki effusion. On my review of CT thorax there is a moderate pericardial effusion initially. Patient did have signs and symptoms consistent with this including difficulty with lying down and the chest pressure located above the heart silhouette. She also had improvement of symptoms when she stood up or walked around. She is not hypoxemic or blood pressure stable. Patient is recommended for further evaluation the hospital due to possible parapneumonic effusion and pericardial effusion. Significant Findings echo Imaging Last Impressions Chest X-Ray 11/16/16 0000 Signed Impressions: Service Date/Time: October 14:30 - CONCLUSION: Lobar consolidation in the left lower lobe and patchy areas of infiltrate medial right lower lung. Alonso Cruz MD Chest CT 11/16/16 0000 Signed Impressions: Service Date/Time: October 19:49 - CONCLUSION: Left lower lobe consolidation with air bronchograms. No central obstructing lesion. Bilateral pleural effusions slightly larger on the left than the right. Moderate to large sized pericardial effusion. Scott Messina MD PE at Discharge GENERAL: This is a well-nourished, well-developed patient, in no apparent distress. CARDIOVASCULAR: Regular rate and rhythm without murmurs, gallops, or rubs. RESPIRATORY: Clear to auscultation. Breath sounds equal bilaterally. No wheezes , rales, or rhonchi. GASTROINTESTINAL: Abdomen soft, non-tender, nondistended. Normal active bowel sounds MUSCULOSKELETAL: Extremities without clubbing, cyanosis, or edema. NEURO: Alert & Oriented x4 to person, place, time, situation. Moves all ext x4 Pt update on day of discharge see progress note Hospital Course Patient mendez some SOB and was found to have pericardial effusion without cardiovascular effect. She was diuresed and also treated for pneumonia. She was seen by cardiology who advised outpatient Echo to follow up. Patient was informed and agreed to this plan and was discharged home Pt Condition on Discharge: Good Discharge Disposition: Discharge Home Discharge Time: > 30 minutes Discharge Instructions DIET: Follow Instructions for: As Tolerated, No Restrictions Activities you can perform: Regular-No Restrictions Activities to Avoid: Driving for 24 hrs Follow up Referrals: Cardiology - 3 Weeks @ [facility] Continued Medications: Acyclovir (Zovirax) 800 Mg Tab 800 MG PO BID Mgmt Viral Infection Ref 0 TAB Levothyroxine (Levothyroxine) 75 Mcg Tab 75 MCG PO DAILY Thyroid #30 Ref 0 TAB Morphine INDUSTRIAL HEALTH ENGINEER Inj (Morphine INDUSTRIAL HEALTH ENGINEER Inj) 30 Mg/30 Ml Vial Unknown Dose IV DIRECTED INDUSTRIAL HEALTH ENGINEER VIAL Quetiapine (Seroquel) 50 Mg Tab 50 MG PO HS #30 Ref 0 TAB Venlafaxine ER 24 HR (Effexor XR 24 HR) 150 Mg Cap 150 MG PO DAILY #30 Ref 0 CAP Ariella Trent MD Dec 20, 2016 22:06
== END 2016-11-19 17:30 | disposition home or self-care (01) | DRG 314 ==
LOC: PHED 13:11 → PHEDA 17:27 → PH3A 22:07
PROVIDERS: ADMIT Hospitalist; ATTEND Hospitalist
DX: I31.3 Pericardial effusion (noninflammatory) (principal); J18.1 Lobar pneumonia, unspecified organism; J90 Pleural effusion, not elsewhere classified; E87.1 Hypo-osmolality and hyponatremia; B34.9 Viral infection, unspecified; D64.9 Anemia, unspecified; E03.9 Hypothyroidism, unspecified; R07.89 Other chest pain; M54.9 Dorsalgia, unspecified; F31.9 Bipolar disorder, unspecified; G89.4 Chronic pain syndrome
CPT/HCPCS: 71020; 71250; 80048; 80053; 82607; 83540; 83550; 83880; 84484; 85025; 93005; 93306; 94640; 94664; 96365; 96375; J1650; J1940; J1956

== ENCOUNTER 2016-11-20 10:00 | Inpatient (IN) | payer MEDICARE, OTHER ==
[2016-11-20] VITALS (11 sets, daily range): BP systolic 115–159; BP diastolic 68–93; PULSE 125–140; RESP 14–35; TEMP 97.5–98.6; O2SAT 96–100
[~2016-11-20] VITALS: Ht 157.5 cm; Wt 62.4 kg
[~2016-11-20 10:00] MED LIST changes: -CALC1TAB30 PO; +COLA100C3 PO; +EPIP0.3I IM; -MAGN500T4 PO; +MELA3CAP PO; +MENT4GEL2 TOPICAL; +META48.53 PO; +MIRA33504 PO; -MULT-135 PO; +NITROGLYCERIN 50 MG/DEXTROSE 5% SOLN 250 ML BTL IV ONE; +PHENYLEPH/NS 1000 MCG/10 ML SYR IV ONE; +PROPOFOL 200 MG/20 ML AMP IV ONE; -STOO100C PO; -TRAZ100T4 PO; +VITA200013 PO
--- NOTE | 2016-11-20 10:05 | PD ---
HPI Chief Complaint: respiratory distress Time Seen by Provider: 10:04 Travel History International Travel<30 days: No Contact w/Intl Traveler<30days: No Traveled to known affect area: No History of Present Illness HPI 71-year-old female came to the emergency room brought by EMS with history of respiratory distress. Patient is awake but appears to be in significant distress. As per the paramedics patient was discharged from [facility] yesterday after being admitted for couple days for pneumonia. Patient told me that they saw some fluid around her heart. She was given diuretics and she was discharged home yesterday. However patient says that she never really felt 100% better and overnight shortness of breath worsened. She had a heart rate in the 140s when she arrived and diaphoretic. We short of breath at rest. Patient has history of chronic pain and has a spinal cord stimulator along with morphine pump. She says she had history of asthma as a child. No history of fever or chills. Patient says she was given antibiotics in the hospital but was not discharged home on prescriptions. Patient was unable to give much descriptive history given her respiratory distress status. Her oxygen saturation was 96-98%. [facility] Past Medical History Narrative Medical List of her past medical, surgical, social and family history is reviewed from the nursing note. Anemia: Yes Arthritis: Yes (thoracic and lumbar spine) Asthma: Yes (childhood) Autoimmune Disease: Yes (METABOLIC ENCEPHILITIS) Bipolar Disorder: Yes Anxiety: Yes Heart Rhythm Problems: No Cancer: No Cardiovascular Problems: No High Cholesterol: No Chest Pain: No Congestive Heart Failure: No COPD: No Cerebrovascular Accident: No Diabetes: No Diminished Hearing: No Endocrine: No Gastrointestinal Disorders: Yes GERD: No Glaucoma: No Genitourinary: No Headaches: Yes Hepatitis: No Hiatal Hernia: No Hypertension: No (DENIES) Immune Disorder: No Kidney Stones: No Musculoskeletal: Yes (arthritis) Neurologic: Yes (HEADACHES) Psychiatric: Yes (BIPOLAR) Reproductive: No Respiratory: Yes (ASTHMA) Immunizations Current: No Migraines: Yes Renal Failure: No Seizures: No Sleep Apnea: No Thyroid Disease: Yes Ulcer: No Menopausal: Yes Past Surgical History Abdominal Surgery: Yes AICD: No Body Medical Devices: SPINAL CORD STIMULATING LEADS AND GENERATOR Cardiac Surgery: No Ear Surgery: Yes (mass removed from right ear) Endocrine Surgery: No Eye Surgery: No Genitourinary Surgery: No Gynecologic Surgery: Yes (hysterectomy) Hysterectomy: Yes Joint Replacement: No Neurologic Surgery: Yes (TENS, SPINAL CORD STIMULATOR IMPL.) Oral Surgery: No Pacemaker: No Thoracic Surgery: No Tonsillectomy: Yes Other Surgery: Yes Social History Alcohol Use: No Tobacco Use: No Substance Use: No Allergies-Medications (Allergen,Severity, Reaction): Coded Allergies: Penicillin (Verified Allergy, Severe, hives, 11/20/16) Sulfa (Verified Allergy, Severe, hives, 11/20/16) Latex (Verified Allergy, Intermediate, rash, 11/20/16) Feldene (Verified Allergy, Unknown, 11/20/16) Flexeril (Unverified Adverse Reaction, Intermediate, PUA, 11/20/16) Vistaril (Unverified Adverse Reaction, Unknown, 11/20/16) Comments List of her allergies reviewed from the nursing note. Reported Meds & Prescriptions Reported Meds & Active Scripts Active Reported Vitamin D (Cholecalciferol) 2,000 Unit Cap 2,000 Units PO DAILY Epipen 2-Krish Inj (Epinephrine) 0.3 Mg/0.3 Ml Pfpen 0.3 Mg IM ONCE PRN Miralax Powder (Polyethylene Glycol 3350 Powder) 17 Gm Powd 17 Gm PO DAILY PRN Mix and dissolve one measuring cap-ful (17 grams) in water or juice. Melatonin 3 Mg Cap 3 Mg PO HS Metamucil Original Texture (Psyllium Hydrophilic Mucilloid) 48.57 % Pow 1 Scoop PO BID 1 rounded TEASPOON in 8 oz of liquid at the first sign of irregularity. Biofreeze Topical (Menthol Topical) 4 % Gel 1 Applic TOPICAL DIRECTED PRN Colace (Docusate Sodium) 100 Mg Cap 100 Mg PO BID Zovirax (Acyclovir) 800 Mg Tab 800 Mg PO BID Morphine [employer] Inj (Morphine Sulfate) 30 Mg/30 Ml Vial Unknown Dose IV DIRECTED [employer]UT[employer] GOV[employer]OR Movantik (Naloxegol) 25 Mg Tab 25 Mg PO HS Probiotic (Lactobacillus Acidophilus) 1 Cap Cap 1 Cap PO DAILY Nadolol 20 Mg Tab 20 Mg PO DAILY Levothyroxine (Levothyroxine Sodium) 75 Mcg Tab 75 Mcg PO DAILY Gabapentin 300 Mg Cap 300 Mg PO BID Estrace (Estradiol) 2 Mg Tab 2 Mg PO DAILY Seroquel (Quetiapine Fumarate) 50 Mg Tab 50 Mg PO HS Klonopin (Clonazepam) 0.5 Mg Tab 0.5 Mg PO BID Effexor XR 24 HR (Venlafaxine HCl) 150 Mg Cap 150 Mg PO DAILY Depakote DR (Divalproex Sodium) 250 Mg Tabdr 750 Mg PO HS Restasis Opth Drops (Cyclosporine Opth Drops) 0.05% Emul 1 Drop EACH EYE BID Preservision Areds 2 (Multiple Vitamins W/ Minerals) 1 Cap 1 Cap PO BID Narrative Medication List of her home medications reviewed from the nursing note. Review of Systems Except as stated in HPI: all other systems reviewed are Neg Physical Exam Narrative GENERAL: Awake, alert, significant distress, anxious SKIN: Pale and diaphoretic HEAD: Atraumatic. Normocephalic. EYES: Pupils equal and round. No scleral icterus. No injection or drainage. ENT: No nasal bleeding or discharge. Mucous membranes pink and moist. NECK: Trachea midline. JVD on 45 CARDIOVASCULAR: Regular rate and rhythm. Tachycardia. Muffled Heart sounds RESPIRATORY: No accessory muscle use. Clear to auscultation. Breath sounds equal bilaterally. GASTROINTESTINAL: Abdomen soft, non-tender, nondistended. Hepatic and splenic margins not palpable. MUSCULOSKELETAL: No obvious deformities. No clubbing. No cyanosis. No edema. NEUROLOGICAL: Awake and alert. No obvious cranial nerve deficits. Motor grossly within normal limits. Normal speech. PSYCHIATRIC: Appropriate mood and affect; insight and judgment normal. Data Data Last Documented VS Vital Signs Date Time Temp Pulse Resp B/P Pulse Ox O2 Delivery O2 Flow Rate FiO2 11/20/16 11:00 136 15 132/93 100 Nasal Cannula 2 11/20/16 10:10 97.8 Orders Complete Blood Count With Diff (11/20/16 10:15) Comprehensive Metabolic Panel (11/20/16 10:15) Prothrombin Time / Inr (Pt) (11/20/16 10:15) Troponin I (11/20/16 10:15) Urinalysis - C+S If Indicated (11/20/16 10:15) Blood Culture (11/20/16 10:15) Iv Access Insert/Monitor (11/20/16 10:15) Electrocardiogram (11/20/16 10:15) Ecg Monitoring (11/20/16 10:15) Oximetry (11/20/16 10:15) Oxygen Administration (11/20/16 10:15) Chest, Single Ap (11/20/16 10:15) Sodium Chloride 0.9% Flush (Ns Flush) (11/20/16 10:15) Westergren Sedimentation Rate (11/20/16 10:15) C-Reactive Protein (Crp) (11/20/16 10:15) Ed Poc Ultrasound (11/20/16 ) Sodium Chlor 0.9% 1000 Ml Inj (Ns 1000 M (11/20/16 10:15) Lidocai-Epi 1%-1:100,000 Inj (Xylocaine- (11/20/16 10:30) Wound [employer] Culture And Stain (11/20/16 11:13) Wound Culture And Gram Stain (11/20/16 11:13) Sodium Chlor 0.9% 1000 Ml Inj (Ns 1000 M (11/20/16 11:15) Type And Screen (11/20/16 11:13) Limited Echocardiogram (11/20/16 11:33) Consult Cardiology (11/20/16 ) Admit Order (Ed Use Only) (11/20/16 11:33) Labs Laboratory Tests Test 11/20/16 11/20/16 10:15 11:24 Erythrocyte Sedimentation Rate 55 mm/hr Prothrombin Time 12.2 SEC Prothromb Time International 1.1 RATIO Ratio Sodium Level 127 MEQ/L Potassium Level 4.6 MEQ/L Chloride Level 88 MEQ/L Carbon Dioxide Level 29.8 MEQ/L Anion Gap 9 MEQ/L Blood Urea Nitrogen 22 MG/DL Creatinine 0.73 MG/DL Estimat Glomerular Filtration 79 ML/MIN Rate Random Glucose 101 MG/DL Calcium Level 8.5 MG/DL Total Bilirubin 0.3 MG/DL Aspartate Amino Transf 59 U/L (AST/SGOT) Alanine Aminotransferase 42 U/L (ALT/SGPT) Alkaline Phosphatase 140 U/L Troponin I LESS THAN 0.02 NG/ML C-Reactive Protein 9.60 MG/DL B-Type Natriuretic Peptide 376 PG/ML Total Protein 6.9 GM/DL Albumin 2.3 GM/DL Thyroid Stimulating Hormone 3.070 uIU/ML 3rd Gen White Blood Count 11.9 TH/MM3 Red Blood Count 3.08 MIL/MM3 Hemoglobin 10.0 GM/DL Hematocrit 30.0 % Mean Corpuscular Volume 97.2 FL Mean Corpuscular Hemoglobin 32.3 PG Mean Corpuscular Hemoglobin 33.2 % Concent Red Cell Distribution Width 13.0 % Platelet Count 581 TH/MM3 Mean Platelet Volume 7.4 FL Neutrophils (%) (Auto) 72.1 % Lymphocytes (%) (Auto) 13.9 % Monocytes (%) (Auto) 12.3 % Eosinophils (%) (Auto) 1.1 % Basophils (%) (Auto) 0.6 % Neutrophils # (Auto) 8.6 TH/MM3 Lymphocytes # (Auto) 1.6 TH/MM3 Monocytes # (Auto) 1.5 TH/MM3 Eosinophils # (Auto) 0.1 TH/MM3 Basophils # (Auto) 0.1 TH/MM3 CBC Comment DIFF FINAL Differential Comment Blood Type A POSITIVE Antibody Screen NEGATIVE Blood Bank Comment MDM Medical Decision Making Medical Screen Exam Complete: Yes Emergency Medical Condition: Yes Medical Record Reviewed: Yes Interpretation(s) Twelve-lead EKG was reviewed by me. Normal sinus rhythm, tachycardia, artifact probably from spinal stimulator. Heart rate of 145 bpm. Differential Diagnosis Cardiac tamponade, large pericardial effusion, pneumonia Narrative Course 11:40 AM based on the bedside ultrasound (please see the documentation under procedure) I decided to do an emergent pericardiocentesis. After the procedure was done patient symptomatically felt better. Her heart rate came down to 120s. Patient tolerated the procedure well. I spoke with the cardiothoracic surgeon information systems security developer Dr. Fox who wanted the fluid to be sent for cytology and an emergent echocardiogram to be ordered. I've requested him to consult the patient for possible pericardial window. Post pericardiocentesis bedside ultrasound done by me she still showed some fluid. However given her symptomatic relief and draining out 130 ML's of bloody fluid I did not proceed any further. I spoke with Dr. Mccrary from surgical ICU who has accepted the patient. He wanted me to consult Dr. Villafuerte since he had seen the patient earlier during [facility]. Patient has stable blood pressures and symptomatically feels better. She understands the reason for admission. CT scan of her thorax during the last hospitalization showed a left lower lobe consolidation which could possibly be a malignancy given the source of the hemorrhagic pericardial effusion. 12:30 PM echocardiogram is getting done bedside by the tech post emergent pericardiocentesis. Critical Care Narrative Aggregate critical care time was 60 minutes. Time to perform other separately billable procedures was not included in the critical care time. My time did not include minutes spent treating any other patients simultaneously or on activities that did not directly contribute to the patient's treatment. The services I provided to this patient were to treat and/or prevent clinically significant deterioration that could result in: Pericardial tamponade, respiratory distress I provided critical care services requiring my management, as noted below: Chart data review, documentation time, medication orders and management, vital sign assessments/reviewing monitor data, ordering and reviewing lab tests, ordering and interpreting/reviewing x-rays and diagnostic studies, care of the patient and discussion of the patient with the admitting physicians. Procedures Procedure Narrative Emergency department cardiac ultrasound was performed with patient consent. Small curvilinear probe was used in the epigastric, parasternal long/short access, four-chamber apical revealing no evidence of pericardial effusion. Patient's overall cardiac squeeze was hyper dynamic. Patient had large pericardial effusion with diastolic collapse of the right atrium and right ventricle. Pericardial tamponade was diagnosed based on these findings. Pericardiocentesis: The subxiphoid area was cleaned with ChloraPrep. Area was draped with sterile towels. Sterile ultrasound probe was used to guide the 18- gauge spinal needle after the area was numbed with 5 mL of 1% lidocaine. Once the needle was seen entering the pericardial sac fluid was aspirated. A total of 125-130 ML's of bloody fluid was aspirated. Repeat ultrasound POC was done once the fluid was taken out. The effusion appeared to be less than before. Patient's heart rate came down to 120s to 140s. Patient tolerated the procedure very well. Symptomatically she said after the procedure she felt better. EKG Prior to Arrival: Yes Physician Communication Physician Communication Dr. Demetra Mayorga Diagnosis Primary Impression: Cardiac tamponade Additional Impressions: Respiratory distress Tachycardia Hyponatremia Admitting Information Admitting Physician Requests: Esmer Coffey MD Nov 20, 2016 10:05
[2016-11-20] MEDS ORDERED: SODIUM CHLORIDE 0.9% FLUSH 5 ML FLUSH IVF PRN ×2 (10:15→13:15)
[2016-11-20] MEDS ORDERED: SODIUM CHLOR 0.9% 1000 ML INJ 1,000 ML IV ONE ×2 (10:15→11:15)
[2016-11-20] MEDS ORDERED: LIDOCAINE 1%/EPINEPHrine 1:100,000 SOLN 20 ML VIAL INFIL ONE (10:30)
[2016-11-20 10:46] LABS: AUTOMATED NEUTROPHIL # 8.6 TH/MM3 (1.8-7.7); BASOPHIL # 0.1 TH/MM3 (0-0.2); BASOPHIL % 0.6 % (0.0-2.0); EOSINOPHIL # 0.1 TH/MM3 (0-0.4); EOSINOPHIL % 1.1 % (0.0-4.0); HEMO FLAGS DIFF FINAL; LYMPH % 13.9 % (9.0-44.0); LYMPHOCYTE # 1.6 TH/MM3 (1.0-4.8); MEAN CELL VOLUME 97.2 FL (80.0-100.0); MEAN CORPUSCULAR HEMOGLOBIN 32.3 PG (27.0-34.0); MEAN CORPUSCULAR HGB CONC 33.2 % (32.0-36.0); MONO % 12.3 % (0.0-8.0); NEUT % 72.1 % (16.0-70.0); PLATELET COUNT 581 TH/MM3 (150-450); RED BLOOD COUNT 3.08 MIL/MM3 (4.00-5.30); WHITE BLOOD COUNT 11.9 TH/MM3 (4.0-11.0)
[2016-11-20 10:54] LABS: PROTHROMBIN TIME - PATIENT 12.2 SEC (9.8-11.6)
[2016-11-20 10:56] LABS: INTERNATIONAL NORMALIZED RATIO 1.1 RATIO
[2016-11-20 11:04] LABS: ANION GAP 9 MEQ/L (5-15)
[2016-11-20 11:06] LABS: ALKALINE PHOSPHATASE 140 U/L (45-117); ALT (GPT) 42 U/L (10-53); AST (GOT) 59 U/L (15-37); BICARBONATE 29.8 MEQ/L (21.0-32.0); BLOOD UREA NITROGEN 22 MG/DL (7-18); CHLORIDE 88 MEQ/L (98-107); GLOMERULAR FILTRATION RATE 79 ML/MIN (>89); POTASSIUM 4.6 MEQ/L (3.5-5.1); SODIUM (NA) 127 MEQ/L (136-145); TOTAL BILIRUBIN ADULT 0.3 MG/DL (0.2-1.0)
--- NOTE | 2016-11-20 12:54 | RADRPT ---
EXAM DATE/TIME: 11/20/2016 11:39 [facility] COMPARISON: CHEST SINGLE AP, March 27, 2016, 19:25. INDICATIONS: Short of breath, prior paracentesis last week. MEDICAL HISTORY: Myocardial infarction. SURGICAL HISTORY: Paracentesis ENCOUNTER: Initial ACUITY: 1 day PAIN SCORE: 7/10 LOCATION: Bilateral chest FINDINGS: The heart is enlarged. There is moderate interstitial edema present. There is a small left pleural effusion present. Spinal stimulator is noted. CONCLUSION: Moderate congestive failure with a small left pleural effusion. Mannie Agrawal MD FACR on November 20, 2016 at 12:50 Board Certified Radiologist. This report was verified electronically.
--- NOTE | 2016-11-20 12:57 | HHI.HP ---
HPI Service Critical Care Medicine Primary Care Physician Unknown Admission Diagnosis pericardial Tamponade Diagnosis: Chief Complaint: Shortness of breath Travel History International Travel<30 Days: No Contact w/Intl Traveler <30 Da: No Traveled to Known Affected Are: No History of Present Illness HPI 71-year-old female came to the emergency room brought by EMS with history of respiratory distress. Patient is awake but appears to be in significant distress. As per the paramedics patient was discharged from [facility] yesterday after being admitted for couple days for pneumonia. Patient told me that they saw fluid around her heart. She was given diuretics and she was discharged home yesterday. However patient says that she did not really feel 100% better and overnight shortness of breath worsened. She had a heart rate in the 140s when she arrived and diaphoretic. Patient was short of breath at rest. Patient has history of chronic pain and has a spinal cord stimulator along with morphine pump. She says she had history of asthma as a child. No history of fever or chills. Patient says she was given antibiotics in the hospital but was not discharged home on prescriptions. Patient was unable to give much descriptive history given her respiratory distress status. Her oxygen saturation was 96-98%. Patient was evaluated by Dr. Puentes in the ER, a stat bedside echo revealed large pericardial effusion with tamponade physiology for which she underwent emergent pericardiocentesis under ultrasound guidance by Dr. Puentes with removal of 125 cc of bloody pericardial fluid following which she had some improvement in her dyspnea. She did not have any documented hypotension per ER physician. Patient was accepted for admission by critical care medicine service. Dr. Smith from CT surgery was consulted and discussed the case with Dr. Puentes earlier. He is deciding regarding possible pericardial drain placement. When I evaluated the patient in the ER she was sitting up in bed did not appear to be in any acute distress though is slightly dyspneic. She denied any chest pain denied any nausea or abdominal discomfort. Denied any hemoptysis or chronic cough. [facility] Past Medical History Narrative Medical List of her past medical, social and family history is reviewed from the nursing note. Anemia: Yes Arthritis: Yes (thoracic and lumbar spine) Asthma: Yes (childhood) Autoimmune Disease: Yes (METABOLIC ENCEPHALITIS) Bipolar Disorder: Yes Anxiety: Yes Heart Rhythm Problems: No Cancer: No Cardiovascular Problems: No High Cholesterol: No Chest Pain: No Congestive Heart Failure: No COPD: No Cerebrovascular Accident: No Diabetes: No Diminished Hearing: No Endocrine: No Gastrointestinal Disorders: Yes GERD: No Glaucoma: No Genitourinary: No Headaches: Yes Hepatitis: No Hiatal Hernia: No Hypertension: No (DENIES) Immune Disorder: No Kidney Stones: No Musculoskeletal: Yes (arthritis) Neurologic: Yes (HEADACHES) Psychiatric: Yes (BIPOLAR) Reproductive: No Respiratory: Yes (ASTHMA) Immunizations Current: No Migraines: Yes Renal Failure: No Seizures: No Sleep Apnea: No Thyroid Disease: Yes Ulcer: No Menopausal: Yes Past Surgical History Abdominal Surgery: Yes AICD: No Body Medical Devices: SPINAL CORD STIMULATING LEADS AND GENERATOR Cardiac Surgery: No Ear Surgery: Yes (mass removed from right ear) Endocrine Surgery: No Eye Surgery: No Genitourinary Surgery: No Gynecologic Surgery: Yes (hysterectomy) Hysterectomy: Yes Joint Replacement: No Neurologic Surgery: Yes (TENS, SPINAL CORD STIMULATOR IMPL.) Oral Surgery: No Pacemaker: No Thoracic Surgery: No Tonsillectomy: Yes Other Surgery: Yes Social History Alcohol Use: No Tobacco Use: No Substance Use: No Allergies-Medications (Allergen,Severity, Reaction): Coded Allergies: Penicillin (Verified Allergy, Severe, hives, 11/20/16) Sulfa (Verified Allergy, Severe, hives, 11/20/16) Latex (Verified Allergy, Intermediate, rash, 11/20/16) Feldene (Verified Allergy, Unknown, 11/20/16) Flexeril (Unverified Adverse Reaction, Intermediate, PAU, 11/20/16) Vistaril (Unverified Adverse Reaction, Unknown, 11/20/16) Comments List of her allergies reviewed from the nursing note. Reported Meds & Prescriptions Reported Meds & Active Scripts Active Reported Vitamin D (Cholecalciferol) 2,000 Unit Cap 2,000 Units PO DAILY Epipen 2-Krish Inj (Epinephrine) 0.3 Mg/0.3 Ml Pfpen 0.3 Mg IM ONCE PRN Miralax Powder (Polyethylene Glycol 3350 Powder) 17 Gm Powd Unknown Dose PO DAILY PRN Mix and dissolve one measuring cap-ful (17 grams) in water or juice. Melatonin 3 Mg Cap 3 Mg PO HS Metamucil Original Texture (Psyllium Hydrophilic Mucilloid) 48.57 % Pow 1 Scoop PO BID 1 rounded TEASPOON in 8 oz of liquid at the first sign of irregularity. Biofreeze Topical (Menthol Topical) 4 % Gel 1 Applic TOPICAL DIRECTED PRN Colace (Docusate Sodium) 100 Mg Cap 100 Mg PO BID Zovirax (Acyclovir) 800 Mg Tab 800 Mg PO BID Morphine CLIENT SERVICE CONSULTANT Inj (Morphine Sulfate) 30 Mg/30 Ml Vial Unknown Dose IV DIRECTED CLIENT SERVICE CONSULTANT Movantik (Naloxegol) 25 Mg Tab 25 Mg PO HS Probiotic (Lactobacillus Acidophilus) 1 Cap Cap 1 Cap PO DAILY Nadolol 20 Mg Tab 20 Mg PO DAILY Levothyroxine (Levothyroxine Sodium) 75 Mcg Tab 75 Mcg PO DAILY Gabapentin 300 Mg Cap 300 Mg PO BID Estrace (Estradiol) 2 Mg Tab 2 Mg PO DAILY Seroquel (Quetiapine Fumarate) 50 Mg Tab 50 Mg PO HS Klonopin (Clonazepam) 0.5 Mg Tab 0.5 Mg PO BID Effexor XR 24 HR (Venlafaxine HCl) 150 Mg Cap 150 Mg PO DAILY Depakote DR (Divalproex Sodium) 250 Mg Tabdr 750 Mg PO HS Restasis Opth Drops (Cyclosporine Opth Drops) 0.05% Emul 1 Drop EACH EYE BID Preservision Areds 2 (Multiple Vitamins W/ Minerals) 1 Cap 1 Cap PO BID Narrative Medication List of her home medications reviewed from the nursing note. Review of Systems Except as stated in HPI: all other systems reviewed are Neg Physical Exam Vital Signs Vital Signs Date Time Temp Pulse Resp B/P Pulse Ox O2 Delivery O2 Flow Rate FiO2 11/20/16 10:15 99 Nasal Cannula 2 11/20/16 10:10 97.8 140 35 119/84 99 Room Air 11/20/16 10:10 97.8 140 35 119/84 99 11/20/16 10:10 99 Room Air Physical Exam Physical Exam Narrative GENERAL: Elderly female, sitting up in ER stretcher in minimal respiratory distress. SKIN: Pale and diaphoretic HEAD: Atraumatic. Normocephalic. EYES: Pupils equal and round. No scleral icterus. No injection or drainage. ENT: No nasal bleeding or discharge. Mucous membranes pink and moist. NECK: Trachea midline. JVD on 45 CARDIOVASCULAR: Regular rate and rhythm. Tachycardia. Muffled Heart sounds RESPIRATORY: No accessory muscle use. Clear to auscultation. Breath sounds equal bilaterally. No wheezing or crackles GASTROINTESTINAL: Abdomen soft, non-tender, nondistended. Hepatic and splenic margins not palpable. MUSCULOSKELETAL: No obvious deformities. No clubbing. No cyanosis. No edema. NEUROLOGICAL: Awake and alert. No obvious cranial nerve deficits. Motor grossly within normal limits. Normal speech. PSYCHIATRIC: Appropriate mood and affect; insight and judgment normal. Laboratory Laboratory Tests Test 11/20/16 11/20/16 10:15 11:24 White Blood Count 11.9 Red Blood Count 3.08 Hemoglobin 10.0 Hematocrit 30.0 Mean Corpuscular Volume 97.2 Mean Corpuscular Hemoglobin 32.3 Mean Corpuscular Hemoglobin 33.2 Concent Red Cell Distribution Width 13.0 Platelet Count 581 Mean Platelet Volume 7.4 Neutrophils (%) (Auto) 72.1 Lymphocytes (%) (Auto) 13.9 Monocytes (%) (Auto) 12.3 Eosinophils (%) (Auto) 1.1 Basophils (%) (Auto) 0.6 Neutrophils # (Auto) 8.6 Lymphocytes # (Auto) 1.6 Monocytes # (Auto) 1.5 Eosinophils # (Auto) 0.1 Basophils # (Auto) 0.1 CBC Comment DIFF FINAL Differential Comment Erythrocyte Sedimentation Rate 55 Prothrombin Time 12.2 Prothromb Time International 1.1 Ratio Sodium Level 127 Potassium Level 4.6 Chloride Level 88 Carbon Dioxide Level 29.8 Anion Gap 9 Blood Urea Nitrogen 22 Creatinine 0.73 Estimat Glomerular Filtration 79 Rate Random Glucose 101 Calcium Level 8.5 Total Bilirubin 0.3 Aspartate Amino Transf 59 (AST/SGOT) Alanine Aminotransferase 42 (ALT/SGPT) Alkaline Phosphatase 140 Troponin I LESS THAN 0.02 C-Reactive Protein 9.60 Total Protein 6.9 Albumin 2.3 Thyroid Stimulating Hormone 3.070 3rd Gen Blood Type A POSITIVE Date/Time Procedure Status Source Growth 11/20/16 11:20 Aerobic Blood Culture Received Blood Peripheral Pending 11/20/16 11:20 Anaerobic Blood Culture Received Blood Peripheral Pending 11/20/16 11:00 Gram Stain Received Wound Chest Pending 11/20/16 11:00 Wound Culture Received Wound Chest Pending 11/20/16 11:00 Acid Fast Stain Received Wound Chest Pending 11/20/16 11:00 Mycobacterial Culture Received Wound Chest Pending Result Diagram: 11/20/16 1015 11/20/16 1015 Imaging Rest x-ray portable which was personally reviewed: Left pleural effusion making visualization of left lower lobe difficult, otherwise clear lung welch. Assessment and Plan Assessment and Plan 71-year-old female with: Large pericardial effusion with tamponade physiology Pleural effusion Left lower lobe infiltrate Hypothyroidism Tachycardia History of asthma History of bipolar disorder History of chronic pain status post spinal cord stimulator placement as well as morphine pump. Plan: Neuro: Continue pain meds. Morphine/Percocet when necessary. Patient has a morphine pump in place and a spinal cord stimulator. Continue psych meds. Cardiovascular: Status post emergent pericardiocentesis. Dr. Smith from CT surgery consulted and aware regarding large pericardial effusion with temporal physiology and is deciding regarding pericardial drain placement following repeat 2-D echo which was completed in the ER. Hemorrhagic pericardial effusion noted. Await pericardial fluid studies. Cardiology consulted. Pulmonary: Continue supplemental O2. Pulmonary consult requested to further evaluate pericardial/left pleural effusion as well as underlying left lower lobe infiltrate. Patient may need bronchoscopy for further evaluation for pulmonary neoplasm. GI/liver: Nothing by mouth for now. CT Abd/pelvis to evaluate for any intra- abdominal neoplasm (in v/o hemorrhagic pericardial effusion raising concern for malignancy) Renal/: Strict intake output, monitor and replete electrolytes, follow BUN/ creatinine. Heme: Follow CBC. Will obtain CT abdomen pelvis to evaluate for any malignancy. ID: No antibiotics at this time. Endocrine: SSI for glycemic control if needed. Continue Synthroid Prophylaxis: PPI/SCDs. No heparin or Lovenox till cleared by Dr. Smith. Condition critical. Patient address for hemodynamic collapse of pericardial fluid re-accumulates. Awaiting pericardial drain placement by CT surgery. Patient being admitted to the ICU. Critical care will continue to follow. Time spent on critical care excluding procedures 45 minutes Rubin Mccrary MD Nov 20, 2016 12:57
[2016-11-20] MEDS ORDERED: CHLORHEXIDINE GLUCONATE 2 % 1 PACK (2 CLOTHS) TOP PRN (13:15)
[2016-11-20] MEDS ORDERED: MORPHINE SULFATE 4 MG/ML INJ IV PRN (13:15)
[2016-11-20] MEDS ORDERED: POLYETHYLENE GLYCOL 17 GM PKG PO PRN (13:15)
[2016-11-20] MEDS ORDERED: ACETAMINOPHEN 325 MG TAB PO PRN ×2 (13:15→16:15)
[2016-11-20] MEDS ORDERED: RESP: ALBUTEROL 2.5 MG/IPRATROPIUM 0.5 MG NEB (PRN) INH (13:15)
[2016-11-20] MEDS ORDERED: MISCELLANEOUS NURSING INFORMATION XX SCH (13:15)
[2016-11-20] MEDS ORDERED: MIDAZOLAM HCL 2 MG/2 ML VIAL ONE (13:39)
[2016-11-20] MEDS ORDERED: KETAMINE HCL 500 MG/5 ML VIAL ONE (13:39)
[2016-11-20] MEDS ORDERED: PILL SPLITTER OTHER PRN (14:00)
[2016-11-20] MEDS ORDERED: HEPARIN SODIUM - SQ 10,000 UNITS/ML VIAL ONE (14:01)
[2016-11-20] MEDS ORDERED: SODIUM CHLOR 0.9% 250 ML INJ 250 ML ONE (14:01)
[2016-11-20] MEDS ORDERED: VANCOMYCIN HCL 1000 MG VIAL ONE (14:01)
[2016-11-20] MEDS ORDERED: BUPIVACAINE HCL PF 0.5% 30 ML VIAL ONE (14:30)
[2016-11-20] MEDS ORDERED: SUGAMMADEX SODIUM 200 MG/2 ML VIAL IV PUSH ONE ×2 (14:45)
--- NOTE | 2016-11-20 14:53 | ECHLIM ---
Study Study Date:11/20/2016 If LV function is below 40, please consider prescribing an ACEI or ARB or document rationale for non-use. PROCEDURE DATA Procedure: Transthoracic echocardiography. Image quality was good. Scanning was performed from the parasternal, apical, and subcostal acoustic windows. Moderate size pericardial effusion, no evidence of hemodynamic compromise. Pleural effusion Ascites STUDY COMPLETION: THE PATIENT TOLERATED THE PROCEDURE WELL. Transthoracic echocardiography. M-mode, limited 2D, limited spectral Doppler, and color Doppler. CARDIAC ANATOMY Prepared and signed by Chino Zaman [id number]
[2016-11-20] MEDS ORDERED: RESP: ALBUTEROL 2.5 MG/IPRATROPIUM 0.5 MG NEB (SCH) NEB (16:00)
[2016-11-20] MEDS ORDERED: ONDANSETRON HCL 4 MG/2 ML VIAL IV PUSH PRN (16:15)
[2016-11-20] MEDS ORDERED: MISC INFORMATION OTHER ONE (16:15)
[2016-11-20] MEDS ORDERED: DEXTROSE 50% IN WATER 50 ML VIAL(D50) IV PUSH PRN (16:15)
[2016-11-20] MEDS ORDERED: Post-op Orders (for Pharmacy) MISC OTHER ONE (16:15)
[2016-11-20] MEDS ORDERED: GLUCAGON 1 MG/ML VIAL IV PRN (16:15)
[2016-11-20] MEDS ORDERED: MAGNESIUM HYDROXIDE SUSP 30 ML CUP PO PRN (16:15)
[2016-11-20] MEDS ORDERED: SODIUM CHLORIDE 0.9% FLUSH 5 ML FLUSH IV FLUSH PRN (16:15)
--- NOTE | 2016-11-20 16:20 | PD.OP ---
cc: Anisha Smith MD; Rubin Mccrary MD Operative Report Date of Surgery: Nov 20, 2016 Preoperative Diagnosis: (1) Cardiac tamponade (2) Pericardial effusion Postoperative Diagnosis: same Procedure: Subxyphoid pericardial window IDRIS Anesthesia: Dr. Juarez Surgeon: Anisha Smith Svp Of Digital(s): PAYAL Naqvi Operation and Findings: After a time out, the patient was prepped and draped in the usual manner. A midline incision was made over the xyphoid and electrocautery was used to carry the dissection down to the xyphoid. The xyphoid was isolated and removed sharply. A plane was developed behind the sternum and it was retracted anteriorly. The pericardium was identified and entered sharply. Fluid was collected in sputum traps and submitted for cytology, cultures, and chemistry studies. Approximately 400 ml of bloody fluid was suctioned. Intraoperative IDRIS was used to confirm complete drainage of the effusion. A 32F right angle chest tube was placed posteriorly in the pericardial space through a separate skin incision. This was secured with a 0-silk suture. The wound was irrigated an closed in 3 layers. All sponge and instrument counts were correct and the patient was transferred to the PACU in stable condition. Anisha Smith MD Nov 20, 2016 16:19
[2016-11-20] MEDS ORDERED: fentaNYL CITRATE 250 MCG/5 ML AMP ONE (16:53)
[2016-11-20] MEDS ORDERED: LABETALOL HCL 100 MG/20 ML VIAL ONE (17:28)
--- NOTE | 2016-11-20 17:49 | RADRPT ---
EXAM DATE/TIME: 11/20/2016 17:19 [facility] COMPARISON: CT THORAX W/O CONTRAST, November 16, 2016, 19:49. CHEST SINGLE AP, November 20, 2016, 11:39. INDICATIONS : Post pericardiocentesis. MEDICAL HISTORY : Myocardial infarction. SURGICAL HISTORY : Paracentesis ENCOUNTER: Initial ACUITY: 1 day PAIN SCORE: Non-responsive. LOCATION: Bilateral chest FINDINGS: Mediastinal drain is present in the midline. Spinal stimulator is noted. Bibasilar consolidative ch anges are evident. There is trace pleural effusion noted. CONCLUSION: 1. Bibasilar consolidative changes. 2. Mediastinal drain is evident. Mannie Agrawal MD FACR on November 20, 2016 at 17:40 Board Certified Radiologist. This report was verified electronically.
[2016-11-20] MEDS: KETOROLAC TROMETHAMINE 30 MG/ML (IVP) VIAL IV PUSH SCH (17:56)
[2016-11-20] MEDS: oxyCODONE/ACETAMINOPHEN 5 MG/325 MG TAB PO PRN (17:56)
[2016-11-20] MEDS: SODIUM CHLOR 0.9% 1000 ML INJ 1,000 ML IV SCH (18:00)
[2016-11-20] MEDS: INSULIN ASPART SUPPLEMENTAL SCALE SQ SCH (18:00)
[2016-11-20] MEDS ORDERED: METOPROLOL TARTRATE 5 MG/5 ML VIAL IV PUSH ONE (18:00)
[2016-11-20] MEDS: CHLORHEXIDINE 0.12% (ORAL KIT) 15 ML CUP MT SCH (20:00)
[2016-11-20] MEDS: SODIUM CHLORIDE 0.9% FLUSH 5 ML FLUSH IV FLUSH SCH (21:00)
[2016-11-20] MEDS: PSYLLIUM FIBER SF/GF 6 GM POWD PKT PO SCH ×2 (21:00→21:21)
[2016-11-20] MEDS ORDERED: CYCLOSPORINE OPTHALMIC EACH EYE SCH (21:00)
[2016-11-20] MEDS ORDERED: SODIUM CHLORIDE 0.9% FLUSH 5 ML FLUSH IVF SCH (21:00)
[2016-11-20] MEDS ORDERED: MOVANTIK 25 MG PO SCH (21:00)
[2016-11-20] MEDS: HYDROmorphone HCL PF 1 MG/ML VIAL IV PRN (21:00)
[2016-11-20] MEDS: PANTOPRAZOLE SOD 40 MG DELAYED RELEASE TAB PO SCH (21:19)
[2016-11-20] MEDS: DOCUSATE SODIUM 100 MG CAP PO SCH (21:19)
[2016-11-20] MEDS: DIVALPROEX SODIUM DELAYED RELEASE 250 MG TAB PO SCH (21:19)
[2016-11-20] MEDS: GABAPENTIN 300 MG CAP PO SCH (21:19)
[2016-11-20] MEDS: MELATONIN 5 MG TAB PO SCH (21:20)
[2016-11-20] MEDS: clonazePAM 0.5 MG TAB PO SCH (21:21)
[2016-11-20] MEDS: QUEtiapine FUMARATE 25 MG TAB PO SCH (21:21)
[2016-11-20] MEDS: MULTIVITAMIN-OPHTHALMIC 1 TAB PO SCH (21:21)
[2016-11-20 22:41] LABS: PERICARDIAL EOS 3 %; PERICARDIAL LYMPHS 29 %; PERICARDIAL MONOS 2 %; PERICARDIAL POLYS(SEGS) 66 %; PERICARDIAL RBC 199399 /MM3 (0-0); PERICARDIAL WBC 2420 /MM3 (0-10)
[2016-11-20 22:43] LABS: PERICARDIAL FLUID PH 8.5
[2016-11-21] VITALS (12 sets, daily range): BP systolic 96–138; BP diastolic 55–92; PULSE 74–140; RESP 12–20; TEMP 97.8–98.7; O2SAT 91–97
[2016-11-21] MEDS: KETOROLAC TROMETHAMINE 30 MG/ML (IVP) VIAL IV PUSH SCH ×3 (00:23→11:35)
[2016-11-21] MEDS: VANCOMYCIN INJ 1,000 MG in SODIUM CHLOR 0.9% 250 ML INJ 250 ML IV SCH ×2 (03:27→15:11)
[2016-11-21] MEDS: CHLORHEXIDINE GLUCONATE 2 % 1 PACK (2 CLOTHS) TOP SCH ×2 (03:27→07:40)
[2016-11-21] MEDS: HYDROmorphone HCL PF 1 MG/ML VIAL IV PRN ×2 (05:03→19:42)
[2016-11-21] MEDS: INSULIN ASPART SUPPLEMENTAL SCALE SQ SCH ×4 (06:00→16:18)
[2016-11-21] MEDS: LEVOTHYROXINE SODIUM 75 MCG TAB PO SCH (06:06)
[2016-11-21] MEDS ORDERED: DILTIAZEM HCL 25 MG/5 ML VIAL ONE ×2 (06:31→14:33)
[2016-11-21 06:32] LABS: AUTOMATED NEUTROPHIL # 7.1 TH/MM3 (1.8-7.7); BASOPHIL % 0.2 % (0.0-2.0); EOSINOPHIL # 0.2 TH/MM3 (0-0.4); EOSINOPHIL % 1.5 % (0.0-4.0); HEMATOCRIT 29.7 % (35.0-46.0); HEMO FLAGS DIFF FINAL; LYMPH % 19.7 % (9.0-44.0); MEAN CELL VOLUME 97.3 FL (80.0-100.0); MEAN CORPUSCULAR HEMOGLOBIN 32.5 PG (27.0-34.0); MEAN CORPUSCULAR HGB CONC 33.4 % (32.0-36.0); MONO % 7.7 % (0.0-8.0); NEUT % 70.9 % (16.0-70.0); PLATELET COUNT 535 TH/MM3 (150-450); RED BLOOD COUNT 3.06 MIL/MM3 (4.00-5.30)
--- NOTE | 2016-11-21 06:45 | RADRPT ---
EXAM DATE/TIME: 11/21/2016 06:07 [facility] COMPARISON: No previous studies available for comparison. INDICATIONS : Post thoracotomy. MEDICAL HISTORY : Myocardial infarction. SURGICAL HISTORY : None. ENCOUNTER: Initial ACUITY: 1 day PAIN SCORE: Non-responsive. LOCATION: Bilateral chest FINDINGS: Mediastinal drain and spinal stimulator unchanged. Basilar airspace disease and effusions similar to November 20. No pneumothorax. Heart size enlarged. CONCLUSION: 1. Stable exam since November 20 with bibasilar airspace disease and pleural effusions. German Joseph MD on November 21, 2016 at 6:42 Board Certified Radiologist. This report was verified electronically.
[2016-11-21 06:59] LABS: ALKALINE PHOSPHATASE 100 U/L (45-117); ALT (GPT) 27 U/L (10-53); ANION GAP 9 MEQ/L (5-15); AST (GOT) 22 U/L (15-37); BICARBONATE 28.3 MEQ/L (21.0-32.0); BLOOD UREA NITROGEN 14 MG/DL (7-18); CHLORIDE 95 MEQ/L (98-107); GLOMERULAR FILTRATION RATE 101 ML/MIN (>89); POTASSIUM 3.6 MEQ/L (3.5-5.1); SODIUM (NA) 132 MEQ/L (136-145); TOTAL BILIRUBIN ADULT 0.2 MG/DL (0.2-1.0)
[2016-11-21] MEDS ORDERED: FUROSEMIDE 20 MG/2 ML VIAL IV PUSH ONE (07:30)
[2016-11-21] MEDS ORDERED: POTASSIUM CHLORIDE 10 MEQ CONTROLLED RELEASE TAB PO ONE (07:30)
--- NOTE | 2016-11-21 07:33 | MB ---
cc: JOHN PERKINS DO DATE OF CONSULTATION November 20, 2016 REASON FOR CONSULTATION Pericardial effusion. HISTORY OF PRESENT ILLNESS Radha Duque is a pleasant 71-year-old female who originally presented on November 20, 2016, to [facility] Emergency Room due to shortness of breath. She recently was in [facility] due to shortness of breath. At that time she had noticed a nonproductive cough with subjective fevers and chills. She also was noted to have some chest heaviness which increased with taking some deep breaths. An echocardiogram was done which showed a normal ejection fraction and a moderate sized circumflex pericardial effusion with no evidence of tamponade. She states that she had a viral infection a couple weeks ago. At that time her blood pressure was stable and respiratory status was not compromise and so she was discharged home. She presented today, November 20, 2016, to [facility] Emergency Room with a repeat respiratory distress. Overnight she states that the shortness of breath worsened. On arrival her heart rate was 140 and she was diaphoretic. In the emergency room the ER physician did an ultrasound for which they diagnosed pericardial tamponade. A pericardiocentesis was done relieving 130 cc of bloody fluid. After the procedure, the patient felt somewhat better and heart rate had decreased to 120. Repeat echo showed a moderate-sized effusion. The patient was seen by Dr. Smith from cardiothoracic surgery and felt that she needed a pericardial window. During this 400 cc of bloody fluid was aspirated. In seeing her postoperatively she feels that her breathing is better. She currently denies any chest pain. PAST MEDICAL HISTORY 1. Hypothyroidism. 2. Bipolar disorder. 3. Chronic back pain. PAST SURGICAL HISTORY 1. DINESH-BSO. 2. Tonsillectomy and adenoidectomy. 3. Transfer of external rotator of the right hip and release of the geniculate and piriformis muscles (March 2003). 4. Spinal cord stimulator (1999) with two subsequent generator changes. 5. Installment of morphine pump. ALLERGIES 1. FELDENE. 2. FLEXERIL. 3. LATEX. 4. PENICILLIN. 5. SULFA. 6. VISTARIL. MEDICATIONS 1. Restasis ophthalmic drops, 1 drop each eye b.i.d. 1. Depakote 750 mg every night. 2. Gabapentin 300 mg b.i.d. 3. Effexor XR 150 mg daily. 4. Seroquel 500 mg every night. 5. Klonopin 0.5 mg b.i.d. 6. Nadolol 200 mg daily. 7. Estrace 2 mg daily. 8. Movantik 25 mg every night. 9. Zovir 800 mg b.i.d. 10. Morphine pump. 11. Synthroid 75 mcg daily. FAMILY HISTORY Mother had a stroke. Denies premature coronary artery disease within the family. SOCIAL HISTORY Denies alcohol or tobacco abuse. REVIEW OF SYSTEMS Fourteen systems were reviewed including osteopathic. Pertinent positives and negatives above, otherwise negative. PHYSICAL EXAMINATION VITAL SIGNS: Temperature 97.5, heart rate 120, blood pressure 125/87, respirations 14, pulse ox 99% on 2 liters. IN GENERAL: The patient appears well, in no acute distress. Alert, awake and oriented x 3. Extraocular muscles intact. Mucous membranes moist. NECK: Supple. No JVD noted at 45 degrees. HEART: Regular rhythm but tachycardic. No noted murmurs, gallops or rubs. LUNGS: Clear to auscultation bilaterally. No wheezes, rales or rhonchi. ABDOMEN: Soft, nontender, nondistended. In the epigastric region pericardial drain noted. Positive a stimulator and morphine pump in the lower abdomen. EXTREMITIES: no clubbing, cyanosis or edema. Femoral and distal pulses intact bilaterally. NEUROLOGIC: No focal deficits. SKIN: Warm, dry and intact. OSTEOPATHIC EXAM: No kyphoscoliosis, lordosis or paraspinal tender points. LABORATORY FINDINGS Hemoglobin 10.0, hematocrit 30.0, platelets 581. Potassium 4.6, BUN 22, creatinine 0.73. Troponin 0.02. C-reactive protein 9.6. BNP 376. TSH 3.07. ELECTROCARDIOGRAM (November 20, 2016, at 10:17) Sinus tachycardia, significant artifact throughout, nonspecific ST-T wave changes. IMPRESSIONS 1. Large pericardial effusion with tamponade physiology status post pericardiocentesis and pericardial window with 500 cc of bloody fluid removed. 2. Pleural effusion. 3. Left lower lobe infiltrate, possible previous pneumonia. 4. Questionable viral illness recently. 5. Hypothyroidism. 6. History of bipolar disorder. 7. History of chronic pain status post spinal cord stimulator as well as morphine pump. RECOMMENDATIONS 1. Pericardial window was done by Dr. Smith. We will continue to follow fluid output. Once significant drainage has decreased, we will plan on removing. 2. We will await pericardial fluid studies for further recommendation on workup. 3. The patient will be watched in the Critical Care Unit at this time. 4. Further recommendations will be made based on the hospital course. Thank you for allowing me to see Radha Duque. If there are any questions, please do not hesitate to call. John Perkins DO VGP/SSB /6:54 PM /7:01 AM
--- NOTE | 2016-11-21 07:39 | HHI.CCPN ---
Subjective Remarks/Hospital Course 11/20: 71-year-old female came to the emergency room brought by EMS with history of respiratory distress. Patient is awake but appears to be in significant distress. As per the paramedics patient was discharged from [facility] yesterday after being admitted for couple days for pneumonia. Patient told me that they saw fluid around her heart. She was given diuretics and she was discharged home yesterday. However patient says that she did not really feel 100% better and overnight shortness of breath worsened. She had a heart rate in the 140s when she arrived and diaphoretic. Patient was short of breath at rest. Patient has history of chronic pain and has a spinal cord stimulator along with morphine pump. She says she had history of asthma as a child. No history of fever or chills. Patient says she was given antibiotics in the hospital but was not discharged home on prescriptions. Patient was unable to give much descriptive history given her respiratory distress status. Her oxygen saturation was 96-98%. Patient was evaluated by Dr. Puentes in the ER, a stat bedside echo revealed large pericardial effusion with tamponade physiology for which she underwent emergent pericardiocentesis under ultrasound guidance by Dr. Puentes with removal of 125 cc of bloody pericardial fluid following which she had some improvement in her dyspnea. She did not have any documented hypotension per ER physician. Patient was accepted for admission by critical care medicine service. Dr. Smith from CT surgery was consulted and discussed the case with Dr. Puentes earlier. He is deciding regarding possible pericardial drain placement. When I evaluated the patient in the ER she was sitting up in bed did not appear to be in any acute distress though is slightly dyspneic. She denied any chest pain denied any nausea or abdominal discomfort. Denied any hemoptysis or chronic cough. 11/21: Patient underwent pericardial drain placement on 11/21 with removal of 400 cc of hemorrhagic pericardial fluid by Dr. Fox under general anesthesia tolerated procedure well. She has put out 80 cc overnight from her pericardial drain. She has been tachycardic overnight with heart rate going up to the 160s and appears to be in atrial flutter/fib. She feels her breathing is a little better. Patient was given Cardizem 20 mg IV this morning by me for A. fib with RVR with a heart rate came down to the 70s. No hypotension overnight. Objective Vital Signs Date Time Temp Pulse Resp B/P Pulse Ox O2 Delivery O2 Flow Rate FiO2 11/21/16 07:10 16 11/21/16 04:00 98.4 120 97 123/65 11/20/16 20:13 Nasal Cannula 3.00 Intake and Output 11/20/16 11/20/16 11/21/16 08:00 16:00 00:00 Intake Total 50 ml Output Total 250 ml Balance -200 ml Result Diagram: 11/21/16 0520 11/21/16 0520 Imaging Rest x-ray portable which was personally reviewed: Left pleural effusion making visualization of left lower lobe difficult, otherwise clear lung welch. Objective Remarks Physical Exam Narrative GENERAL: Elderly female, sitting up in a reclining chair, minimally dyspneic. SKIN: Warm and dry HEAD: Atraumatic. Normocephalic. EYES: Pupils equal and round. No scleral icterus. No injection or drainage. ENT: No nasal bleeding or discharge. Mucous membranes pink and moist. NECK: Trachea midline. No JVD CARDIOVASCULAR: S1 and S2 irregularly irregular, RESPIRATORY: No accessory muscle use. Clear to auscultation. Breath sounds equal bilaterally though decreased at the bases. No wheezing or crackles GASTROINTESTINAL: Abdomen soft, non-tender, nondistended. Hepatic and splenic margins not palpable. MUSCULOSKELETAL: No obvious deformities. No clubbing. No cyanosis. No edema. NEUROLOGICAL: Awake and alert. No obvious cranial nerve deficits. Motor grossly within normal limits. Normal speech. PSYCHIATRIC: Appropriate mood and affect; insight and judgment normal. A/P Assessment and Plan 71-year-old female with: Large pericardial effusion with tamponade physiology Pleural effusion Left lower lobe infiltrate Hypothyroidism A. fib/ flutter with RVR History of asthma History of bipolar disorder History of chronic pain status post spinal cord stimulator placement as well as morphine pump. Plan: Neuro: Continue pain meds. Morphine/Percocet when necessary. Patient has a morphine pump in place and a spinal cord stimulator. Continue psych meds. Cardiovascular: Status post emergent pericardiocentesis. CT surgery following. Patient underwent pericardial drain placement on 11/[address] Smith with drainage of 400 cc of pericardial fluid. Hemorrhagic pericardial effusion noted. Await pericardial fluid studies. Cardiology consulted. Given Cardizem 20 mg IV 1 for A. fib with RVR. Lasix 20 mg IV 1 dose in view of bilateral pleural effusions on chest x-ray this morning. Pulmonary: Continue supplemental O2. Pulmonary consult requested to further evaluate pericardial/left pleural effusion as well as underlying left lower lobe infiltrate. Patient may need bronchoscopy for further evaluation for pulmonary neoplasm. GI/liver: Nothing by mouth for now. CT Abd/pelvis to evaluate for any intra- abdominal neoplasm (in v/o hemorrhagic pericardial effusion raising concern for malignancy) Renal/: Strict intake output, monitor and replete electrolytes, follow BUN/ creatinine. Heme: Follow CBC. Will obtain CT abdomen pelvis to evaluate for any malignancy. ID: No antibiotics at this time. Endocrine: SSI for glycemic control if needed. Continue Synthroid Prophylaxis: PPI/SCDs. No heparin or Lovenox till cleared by Dr. Smith. Time spent on critical care excluding procedures 45 minutes Rubin Mccrary MD Nov 21, 2016 07:39
[2016-11-21] MEDS: CHLORHEXIDINE 0.12% (ORAL KIT) 15 ML CUP MT SCH ×2 (07:41→20:00)
--- NOTE | 2016-11-21 07:57 | MB ---
cc: DARRIUSSAMMY DATE OF CONSULTATION 11/20/2016 REASON FOR CONSULTATION Respiratory insufficiency, status post pericardial drain. HISTORY OF PRESENT ILLNESS This is a 71-year-old lady who was brought to the ER with a history of respiratory distress and history of a pericardial effusion. The patient apparently was seen at [facility] and had been treated for pneumonia and subsequently discharged on diuretics and antibiotics. However, after she went home she was not better and became more short of breath and was tachycardic and diaphoretic and thus came back to the emergency room and was subsequently admitted. Bedside 2-D echo showed a pericardial effusion with cardiac tamponade and she thus underwent an emergency pericardiocentesis and ultrasound and following this was seen by Cardiothoracic Surgery and she was taken in today for a pericardial drain and window placement. The surgery was performed earlier today and the patient is now in CV-ICU on oxygen at 3 liters and in no acute distress but complains of some chest tightness and pain. She has had no nausea, vomiting or hemoptysis and no fevers or chills. PAST HISTORY 1. History of asthma since childhood. 2. History of bipolar disorder. 3. Anxiety and depression. 4. History for GI reflux. She has no hypertension or diabetes. PAST SURGICAL HISTORY 1. Has had abdominal surgery in the past. 1. Spinal cord stimulating device. 2. Hysterectomy remotely. 3. History for tonsillectomy. ALLERGIES PENICILLIN. SULFA. LATEX. FELDENE. FLEXERIL. MEDICATION LIST 1. Zovirax 800 mg b.i.d. 2. Synthroid 75 mcg daily. 3. Gabapentin 300 mg b.i.d. 4. Seroquel 50 mg at bedtime. FAMILY HISTORY Noncontributory. HABITS The patient is a nonsmoker. No significant alcohol. REVIEW OF SYSTEMS The patient was having some postnasal drip, hoarseness, cough and wheezing. She has epigastric distress. No nausea, vomiting, no GI bleed. No urinary symptoms. No leg or calf muscle pains. She has some joint pains of her extremities and no skin lesions. PHYSICAL EXAMINATION GENERAL: This elderly averagely-built white female is in no acute distress. No cyanosis, icterus or edema. VITAL SIGNS: Blood pressure 130/70, pulse 112, respirations 24, temperature 98.2. HEENT: Head normocephalic. Pupils reactive. Tongue moist. Throat is injected. Nasal mucosa edematous. NECK: Supple. No lymphadenopathy. No bruits or thyroid enlargement. CHEST: Distant breath sounds with wheezes bilaterally, prolonged expirations. HEART: The heart sounds are irregular. S1 and S2 with no murmur. No S3. ABDOMEN: Soft, benign. No mass. No organomegaly or tenderness. Bowel sounds are active. EXTREMITIES: Mild peripheral edema, more so on the right side with peripheral pulses that are well felt. Reflexes 1+ with no gross motor deficits. NEUROLOGIC: Cranial nerves grossly intact. RECTAL: Exam deferred. SKIN: No lesions. IMPRESSION 1. Status post pericardial window placement for large pericardial effusion. 2. Asthma with chronic bronchitis. 3. History of bipolar disorder. PLAN 1. The patient will be placed on O2 via nasal cannula at 2-3 liters and nebulized albuterol and add Atrovent solution given t.i.d. p.r.n. 2. Symbicort 160/4.5 mcg one puff b.i.d. 3. Incentive spirometry at the bedside. 4. Oxygen 3 liters supplementation. I will follow the case with you, Dr. Mccrary. Thank you for this consultation. Sammy Lopez MD JVD/REZA /10:45 PM /7:44 AM
--- NOTE | 2016-11-21 08:09 | MB ---
cc: MANDEEP SMITH DATE OF CONSULTATION 11/20/2016 DATE OF 1945 HISTORY OF PRESENT ILLNESS A 71-year-old patient initially was seen on the at [facility] for treatment of upper respiratory tract infection. Eight days prior she saw her primary care, was treated with some Flonase, Tessalon Perles, began having some fevers and chills, some chest pressure, unable to lie down. She does have a caregiver and home physical therapy. She was found to have a pleural effusion, pericardial effusion. The pericardial effusion was moderate, with no echocardiographic evidence for tamponade, no right ventricular diastolic collapse, right atrial and invagination or variation of mitral. E-wave velocities greater than 25. There was also a left pleural effusion. She was treated for possible parapneumonic effusion. The patient had a chest CT during her stay at [place], had left lower consolidation with air broncho diagrams, no central obstructing lesion, bilateral pleural effusions larger on the left than the right, moderate-sized to large pericardial effusion. She was treated with Levaquin and then discharged home. She also receives a couple doses of Lovenox. She returned by [facility] today for worsening shortness of breath. She had been evaluated by Dr. Shaheed Villafuerte during her stay at [facility]. There was no evidence for tamponade. The etiology may be viral infection. Have recommended follow-up outpatient for repeat echo to make sure the pericardial fluid was decreasing in amount. She came in by emergent [facility] today for shortness of breath, tachycardia. They did a fast ultrasound at the bedside and found concerning again consistent pericardial effusion. She had a pericardiocentesis at the bedside by the ER doctor that removed about 130 cc. She felt like there was probably still 130 cc there. There she underwent STAT 2-D echo post pericardiocentesis. The echo showed moderate pericardial effusion, no significant hemodynamic compromise. She underwent emergent subxiphoid pericardial window with IDRIS. They removed about 400 cc of fluid. She had a 32-Irish chest tube placed posterior in the pericardial space. Fluids were sent for cytology, cultures. There was also an underlying left lower lobe infiltrate, may need bronchoscopy for further pulmonary neoplasm. CT of the abdomen and pelvis is also pending at present to rule out any malignancy. PAST MEDICAL HISTORY 1. Chronic back pain. She has a morphine pump and a pain stimulator. 2. Hypothyroidism. 3. Bipolar disorder. PAST SURGICAL HISTORY She has had back surgery. Actually she has a spinal stent of spinal stimulator. ALLERGIES PENICILLIN. SULFA. LATEX. FELDENE. FLEXERIL. VISTARIL. FAMILY HISTORY Mother had hypertension. SOCIAL HISTORY Lives with her . No tobacco or alcohol dependence. REVIEW OF SYSTEMS As above in the HPI. Other 12 systems unremarkable. PHYSICAL EXAMINATION GENERAL: On exam, a very frail-appearing female. The patient is awake, somewhat anxious. VITAL SIGNS: Blood pressure 125/80, heart rate of 125, temperature max 97.5, O2 sat 99 on 2 liters. HEENT: Head is normocephalic, atraumatic. Pupils equal and reactive. NECK: Supple. No JVD. HEART SOUNDS: S1-S2, tachycardiac. No audible rubs. LUNGS: Diminished in the bases, otherwise clear to auscultation. ABDOMEN: Obese, soft, nontender. No masses or organomegaly. EXTREMITIES: No cyanosis, clubbing or edema. SKIN: She does have a pain pump at the right lower abdominal wall and a spinal stimulator in the left lower abdominal wall. LABORATORY FINDINGS Hemoglobin 10, hematocrit 30, white cell count of 11, platelet count of 581. Sodium 127, potassium 4.6, BUN 22, creatinine 0.73. Troponin less than 0.02. C-reactive protein 9. BNP of 376. INR 1.1. Blood cultures, wound cultures pending. IMPRESSION AND PLAN 1. This is a 71-year-old female with persistent moderate pericardial effusion status post pericardiocentesis in the ER followed by pericardial window and removal of 400 cc of bloody fluid. Cultures and cytology pending. Concern also for the left lower lobe pneumonia and further workup. May need pulmonary and possible bronchoscopy and further workup to rule out any malignancies. 2. No aspirin. No aspirin products. 3. No Lovenox at this time and will continue to follow further plan per Dr. Smith. Dictated by: MARZENA Riley MD FER Fung/REZA /5:30 PM /8:09 AM
[2016-11-21] MEDS: MULTIVITAMIN-OPHTHALMIC 1 TAB PO SCH ×2 (08:35→20:14)
[2016-11-21] MEDS: DOCUSATE SODIUM 100 MG CAP PO SCH ×2 (08:39→20:15)
[2016-11-21] MEDS: clonazePAM 0.5 MG TAB PO SCH ×2 (08:39→20:15)
[2016-11-21] MEDS: ESTRADIOL 1 MG TAB PO SCH (08:39)
[2016-11-21] MEDS: GABAPENTIN 300 MG CAP PO SCH ×2 (08:39→20:15)
[2016-11-21] MEDS: PSYLLIUM FIBER SF/GF 6 GM POWD PKT PO SCH ×2 (08:40→20:15)
[2016-11-21] MEDS: SODIUM CHLORIDE 0.9% FLUSH 5 ML FLUSH IV FLUSH SCH ×2 (08:41→20:15)
[2016-11-21] MEDS: VENLAFAXINE HCL XR 75 MG CAP PO SCH (08:41)
[2016-11-21] MEDS ORDERED: IOHEXOL 350 MG/ML 10 ML VIAL (for RAD DIAG) IV ONE (09:42)
[2016-11-21] MEDS: ACETAMINOPHEN/HYDROcodone 325 MG/5 MG TAB PO PRN ×3 (10:09→21:19)
--- NOTE | 2016-11-21 10:13 | RADRPT ---
EXAM DATE/TIME: 11/21/2016 09:31 [place] COMPARISON: No previous studies available for comparison. INDICATIONS: Pericardial effusion, ascites, abdominal distention. IV CONTRAST: 94 cc Omnipaque 350 (iohexol) IV ORAL CONTRAST: No oral contrast ingested. RADIATION DOSE: 7.59 CTDIvol (mGy) MEDICAL HISTORY: Hypertension. Cardiovascular disease SURGICAL HISTORY: Hysterectomy. Lumbar fusion ENCOUNTER: Initial ACUITY: 1 day PAIN SCALE: 0/10 LOCATION: Abdomen TECHNIQUE: Volumetric scanning of the abdomen and pelvis was performed. Using automated exposure control and ad justment of the mA and/or kV according to patient size, radiation dose was kept as low as reasonably achievable to obtain optimal diagnostic quality images. FINDINGS: CT scan of the abdomen and pelvis was performed with IV contrast. There is a large amount of bilater al pleural effusions with significant passive atelectasis both lung bases. There is some passive ate lectasis within the lingula. There is a pericardial drain in place without significant re-accumulati on of the pericardial effusion. There is a small amount of air around the pericardial drain undernea th the xiphoid process. There are a few tiny locules of air underneath the left rectus abdominal mus skyler, maybe dissecting. It is not classic for free peritoneal air. The pancreas, spleen, kidneys, adrenal glands are unremarkable. Gallbladder is decompressed. Mild i nhomogeneity of the liver without focal masses. There is some free fluid in the pelvis. Tiny amount of air within the bladder likely related to rece nt catheterization. Epidural stimulator in place. Marked degenerative facet disease lower lumbar spine. CONCLUSION: 1. Pericardial drain has been placed with good location. I do not see any significant re-accumulati on of the pericardial effusion. There are some tiny locules of air underneath the xiphoid process li libra related to the catheter placement. 2. Large bilateral pleural effusions with significant passive atelectasis both lung bases. 3. Ascites within the pelvis. Please see above. Jackson Thornton MD on November 21, 2016 at 10:01 Board Certified Radiologist. This report was verified electronically.
[2016-11-21] MEDS ORDERED: AMIODARONE 150 MG/D5W 97 ML BOLUS 10 MINUTES IV ONE ×2 (10:45)
[2016-11-21] MEDS ORDERED: AMIODARONE INJ 450 MG in DEXTROSE 5% IN WATE(EXCEL) INJ 250 ML IV SCH ×2 (10:45)
[2016-11-21] MEDS ORDERED: ZOLPIDEM TARTRATE 5 MG TAB PO PRN (11:00)
[2016-11-21] MEDS: SODIUM CHLOR 0.9% 1000 ML INJ 1,000 ML IV SCH (11:37)
--- NOTE | 2016-11-21 11:57 | PD.CARD.PN ---
Subjective Subjective Remarks Feeling better. Dyspnea improved. No CP, dizziness, palpitations. Slept fairly well. Objective Medications Item Value Date Time Amiodarone HCl 259 ml @ 0 mls/hr 11/21/16 1045 450 mg/Dextrose CONTINUOUS/IV Vital Signs / I&O Vital Signs Date Time Temp Pulse Resp B/P Pulse Ox O2 Delivery O2 Flow Rate FiO2 11/21/16 08:14 96 Nasal Cannula 6.00 11/21/16 08:00 97.8 74 19 96/64 95 126/55 11/21/16 07:10 16 11/21/16 07:00 74 11/21/16 04:00 98.4 120 18 97 123/65 11/21/16 00:00 117 11/21/16 00:00 98.7 117 12 94 129/73 11/20/16 21:30 20 11/20/16 20:13 99 Nasal Cannula 3.00 11/20/16 20:00 98.6 140 20 96 127/68 11/20/16 19:40 125 11/20/16 19:40 159/92 11/20/16 17:05 127 11/20/16 16:45 97.5 125 14 125/87 99 150/74 11/20/16 14:00 130 20 115/81 98 Nasal Cannula 2 11/20/16 13:45 98 Nasal Cannula 1.00 11/20/16 13:00 136 23 143/76 98 Nasal Cannula 2 I/O 11/20/16 11/20/16 11/20/16 11/21/16 11/21/16 11/21/16 07:00 15:00 23:00 07:00 15:00 23:00 Intake Total 50 ml 1940 ml Output Total 250 ml 380 ml Balance -200 ml 1560 ml Intake Oral 50 ml 1200 ml IV Total 740 ml Output Urine Total 250 ml 300 ml Chest Tube Drainage Total 80 ml # Bowel Movements 0 0 Physical Exam GENERAL: Well developed, well nourished. No acute distress. HEENT: Jugular venous pressure is normal. CHEST: Lungs clear to auscultation bilaterally. Unlabored respiratory effort. CARDIAC: Regular rate and rhythm without S3, S4, or murmur. ABDOMEN: Soft, nontender, no hepatosplenomegaly. Bowel sounds present. EXTREMITIES: No clubbing, cyanosis, or edema. Laboratory Laboratory Tests Test 11/20/16 11/20/16 11/21/16 16:00 16:52 05:20 Pericardial Fluid pH 8.5 Pericardial Fluid WBC 2420 /MM3 Pericardial Fluid RBC 847448 /MM3 Pericardial Fluid Neutrophils 66 % Pericardial Fluid Lymphocytes 29 % Pericardial Fluid Monocytes 2 % Pericardial Fluid Eosinophils 3 % Pericardial Fluid Total 5.4 GM/DL Protein Pericardial Fluid LDH 1004 U/L Pericardial Fluid Glucose 58 MG/DL Nasal Screen MRSA (PCR) NEGATIVE White Blood Count 10.0 TH/MM3 Red Blood Count 3.06 MIL/MM3 Hemoglobin 9.9 GM/DL Hematocrit 29.7 % Mean Corpuscular Volume 97.3 FL Mean Corpuscular Hemoglobin 32.5 PG Mean Corpuscular Hemoglobin 33.4 % Concent Red Cell Distribution Width 13.0 % Platelet Count 535 TH/MM3 Mean Platelet Volume 7.3 FL Neutrophils (%) (Auto) 70.9 % Lymphocytes (%) (Auto) 19.7 % Monocytes (%) (Auto) 7.7 % Eosinophils (%) (Auto) 1.5 % Basophils (%) (Auto) 0.2 % Neutrophils # (Auto) 7.1 TH/MM3 Lymphocytes # (Auto) 2.0 TH/MM3 Monocytes # (Auto) 0.8 TH/MM3 Eosinophils # (Auto) 0.2 TH/MM3 Basophils # (Auto) 0.0 TH/MM3 CBC Comment DIFF FINAL Differential Comment Sodium Level 132 MEQ/L Potassium Level 3.6 MEQ/L Chloride Level 95 MEQ/L Carbon Dioxide Level 28.3 MEQ/L Anion Gap 9 MEQ/L Blood Urea Nitrogen 14 MG/DL Creatinine 0.59 MG/DL Estimat Glomerular Filtration 101 ML/MIN Rate Random Glucose 101 MG/DL Calcium Level 7.5 MG/DL Phosphorus Level 2.5 MG/DL Magnesium Level 2.0 MG/DL Total Bilirubin 0.2 MG/DL Aspartate Amino Transf 22 U/L (AST/SGOT) Alanine Aminotransferase 27 U/L (ALT/SGPT) Alkaline Phosphatase 100 U/L Total Protein 5.5 GM/DL Albumin 1.9 GM/DL Assessment and Plan Problem List: (1) Pericardial effusion Assessment and Plan: Stable s/p pericardial window placement for tamponade. Patient apparently felt to have clinical, exam evidence for tamponade as I do not see any definite tamponade physiology by echo, nor was it reported by Dr. Zaman. Patient without hypotension. Suspect her severe dyspnea has been more due to pleural effusion rather than pericardial effusion. REC continue post op care, await pericardial effusion cytology (2) Paroxysmal atrial fibrillation Assessment and Plan: Paroxysms of atrial fib last night and this morning. Atrial fib likely due to the pericardial effusion. Rec start Amiodarone for now. Code Status full code Discussed Condition With patient Shaheed Villafuerte MD Nov 21, 2016 11:57
[2016-11-21] MEDS ORDERED: POTASSIUM CHLORIDE 20 MEQ CONTROLLED RELEASE TAB PO ONE (12:00)
[2016-11-21] MEDS ORDERED: DILTIAZEM HCL 25 MG/5 ML VIAL IV ONE (14:45)
[2016-11-21] MEDS: oxyCODONE/ACETAMINOPHEN 5 MG/325 MG TAB PO PRN ×3 (15:20→22:57)
[2016-11-21] MEDS ORDERED: AMIODARONE INJ 150 MG in DEXTROSE 5% IN WATER 100ML INJ 97 ML IV ONE ×2 (16:00)
--- NOTE | 2016-11-21 16:24 | PD.CAR.PN ---
CVT Progress Note CVT: POD #: 1 Subjective/Hospital Course: 62/ female recent treatment for viral syndrome URI, seen and eval and found to have left pleural effusion and moderate sized pericardial effusion / no tamponade noted / treated and discharged home brought in via [facility] 11/20 resp distress, tachycardia / emergent pericardicentesis was done at bedside and 130cc bloody fluid removed, post ECHO done, with some cardiac compromise , pt then went to OR , underwent pericardial window and removed 400cc bloody fluid ( cultures to date neg, path pending ) PMH: chronic back pain, prior back surgery, spinal stimulator, pain pump, Bipolar dz , hypothyroidism 11/21 pericardial cath drained 80 cc/ bloody fluid will leave drain in place today / eval for removal in am new onset afib RVR this am , treated with cardizem , amiodarone , then cardizem gtt Objective: Vital Signs Date Time Temp Pulse Resp B/P Pulse Ox O2 Delivery O2 Flow Rate FiO2 11/21/16 15:00 130 11/21/16 12:00 98.1 140 20 120/60 94 138/80 11/21/16 11:00 98.1 140 20 118/63 94 133/63 11/21/16 11:00 140 11/21/16 08:14 96 Nasal Cannula 6.00 11/21/16 08:00 97.8 74 19 96/64 95 126/55 11/21/16 07:10 16 11/21/16 07:00 74 11/21/16 04:00 98.4 120 18 97 123/65 11/21/16 00:00 117 11/21/16 00:00 98.7 117 12 94 129/73 11/20/16 21:30 20 11/20/16 20:13 99 Nasal Cannula 3.00 11/20/16 20:00 98.6 140 20 96 127/68 11/20/16 19:40 125 11/20/16 19:40 159/92 11/20/16 17:05 127 11/20/16 16:45 97.5 125 14 125/87 99 150/74 Labs: Laboratory Tests Test 11/21/16 05:20 White Blood Count 10.0 TH/MM3 (4.0-11.0) Red Blood Count 3.06 MIL/MM3 (4.00-5.30) Hemoglobin 9.9 GM/DL (11.6-15.3) Hematocrit 29.7 % (35.0-46.0) Mean Corpuscular Volume 97.3 FL (80.0-100.0) Mean Corpuscular Hemoglobin 32.5 PG (27.0-34.0) Mean Corpuscular Hemoglobin 33.4 % Concent (32.0-36.0) Red Cell Distribution Width 13.0 % (11.6-17.2) Platelet Count 535 TH/MM3 (150-450) Mean Platelet Volume 7.3 FL (7.0-11.0) Neutrophils (%) (Auto) 70.9 % (16.0-70.0) Lymphocytes (%) (Auto) 19.7 % (9.0-44.0) Monocytes (%) (Auto) 7.7 % (0.0-8.0) Eosinophils (%) (Auto) 1.5 % (0.0-4.0) Basophils (%) (Auto) 0.2 % (0.0-2.0) Neutrophils # (Auto) 7.1 TH/MM3 (1.8-7.7) Lymphocytes # (Auto) 2.0 TH/MM3 (1.0-4.8) Monocytes # (Auto) 0.8 TH/MM3 (0-0.9) Eosinophils # (Auto) 0.2 TH/MM3 (0-0.4) Basophils # (Auto) 0.0 TH/MM3 (0-0.2) CBC Comment DIFF FINAL Differential Comment Sodium Level 132 MEQ/L (136-145) Potassium Level 3.6 MEQ/L (3.5-5.1) Chloride Level 95 MEQ/L (98-107) Carbon Dioxide Level 28.3 MEQ/L (21.0-32.0) Anion Gap 9 MEQ/L (5-15) Blood Urea Nitrogen 14 MG/DL (7-18) Creatinine 0.59 MG/DL (0.50-1.00) Estimat Glomerular Filtration 101 ML/MIN Rate (>89) Random Glucose 101 MG/DL (74-106) Calcium Level 7.5 MG/DL (8.5-10.1) Phosphorus Level 2.5 MG/DL (2.5-4.9) Magnesium Level 2.0 MG/DL (1.5-2.5) Total Bilirubin 0.2 MG/DL (0.2-1.0) Aspartate Amino Transf 22 U/L (15-37) (AST/SGOT) Alanine Aminotransferase 27 U/L (10-53) (ALT/SGPT) Alkaline Phosphatase 100 U/L (45-117) Total Protein 5.5 GM/DL (6.4-8.2) Albumin 1.9 GM/DL (3.4-5.0) Result Diagram: 11/21/1651911/21/16519 (1) Pericardial effusion Plan: keep pericardial drain in place for now, re-eval for removal in am await cytology (2) Paroxysmal atrial fibrillation Plan: Paroxysms of atrial fib last night and this morning. Atrial fib likely due to the pericardial effusion. s/p amiodarone bolus, now on cardizem gtt (3) Asthmatic bronchitis , chronic Plan: on nebs, symbicort, pulm following Flor Dunham Nov 21, 2016 16:24
--- NOTE | 2016-11-21 16:33 | EKG ---
Date Performed: 11/20/2016 Time Performed: 10:17:45 PTAGE: 71 years EKG: SINUS TACHYCARDIA OTHERWISE LARGELY UNCHANGED FROM PRIOR TRACING ABNORMAL RHYTHM ECG PREVIOUS TRACING 11/16/16 @14.22.52 DOCTOR: Lorne Allen Interpretating Date/Time 11/21/2016 16:33:17
[2016-11-21] MEDS ORDERED: MAGNESIUM SULFATE 1 GM PREMIX 100 ML IV ONE (17:00)
--- NOTE | 2016-11-21 17:59 | HHI.PR ---
Subjective Remarks Up in a chair. On O2 4L. CXR shows bilateral effusions. No fever. C/O pain in chest. Objective Vital Signs Date Time Temp Pulse Resp B/P Pulse Ox O2 Delivery O2 Flow Rate FiO2 11/21/16 16:00 98.6 83 20 116/67 94 100/69 11/21/16 15:00 130 11/21/16 12:00 98.1 140 20 120/60 94 138/80 11/21/16 11:00 98.1 140 20 118/63 94 133/63 11/21/16 11:00 140 11/21/16 08:14 96 Nasal Cannula 6.00 11/21/16 08:00 97.8 74 19 96/64 95 126/55 11/21/16 07:10 16 11/21/16 07:00 74 11/21/16 04:00 98.4 120 18 97 123/65 11/21/16 00:00 117 11/21/16 00:00 98.7 117 12 94 129/73 11/20/16 21:30 20 11/20/16 20:13 99 Nasal Cannula 3.00 11/20/16 20:00 98.6 140 20 96 127/68 11/20/16 19:40 125 11/20/16 19:40 159/92 I/O 11/20/16 11/20/16 11/20/16 11/21/16 11/21/16 11/21/16 07:00 15:00 23:00 07:00 15:00 23:00 Intake Total 50 ml 1940 ml 1750 ml Output Total 250 ml 380 ml 1958 ml Balance -200 ml 1560 ml -208 ml Intake Oral 50 ml 1200 ml 900 ml IV Total 740 ml 850 ml Output Urine Total 250 ml 300 ml 1900 ml Chest Tube Drainage Total 80 ml 58 ml # Bowel Movements 0 0 0 Result Diagram: 11/21/1651911/21/16 0520 Objective Remarks GENERAL: This elderly averagely-built white female is in no acute distress. No cyanosis, icterus or edema. HEENT: Head normocephalic. Pupils reactive. Tongue moist. Throat is injected. Nasal mucosa edematous. NECK: Supple. No lymphadenopathy. No bruits or thyroid enlargement. CHEST: Distant breath sounds with wheezes bilaterally, prolonged expirations. Occ Basal crackles. HEART: The heart sounds are irregular. S1 and S2 with no murmur. No S3. ABDOMEN: Soft, benign. No mass. No organomegaly or tenderness. Bowel sounds are active. EXTREMITIES: Mild peripheral edema, more so on the right side with peripheral pulses that are well felt. Reflexes 1+ with no gross motor deficits. NEUROLOGIC: Cranial nerves grossly intact. RECTAL: Exam deferred. SKIN: No lesions. Assessment and Plan Assessment and Plan IMPRESSION 1. Status post pericardial window placement for large pericardial effusion. 2. Asthma with chronic bronchitis. 3. History of bipolar disorder 4. Bilateral Pleural effusions Plan : 1. Cont Weaning O2 to 2L. 2. IS at bedside qid. 3. Bonifacio effusions with ultrasound 4. Amiodarone Drip for Atrial Fibrillation 5. Duoneb nebs qid PRN. 6. Cytology pending. Mariann Lopez MD Nov 21, 2016 17:59
[2016-11-21] MEDS: DIVALPROEX SODIUM DELAYED RELEASE 250 MG TAB PO SCH (20:14)
[2016-11-21] MEDS: MELATONIN 5 MG TAB PO SCH (20:15)
[2016-11-21] MEDS: PANTOPRAZOLE SOD 40 MG DELAYED RELEASE TAB PO SCH (20:15)
[2016-11-21] MEDS: QUEtiapine FUMARATE 25 MG TAB PO SCH (20:15)
--- NOTE | 2016-11-21 20:52 | RADRPT ---
EXAM DATE/TIME: 11/21/2016 18:35 [facility] COMPARISON: No previous studies available for comparison. INDICATIONS : Right pleural effusion. MEDICAL HISTORY : Osteoporosis. Arthritis. Inflammatory bowel disease. Thyroid disease. Cataracts. Glaucoma. Acute ence phalopathy. Syncope. Migraines. Pericardial effusion. Athsma. Pneumonia. Pleural effusion. HTN. Hyper thyroidism. Shortness of breath. Cervial radiculopathy. Metabolic encephilitis. Anemia. Hay fever. Bi polar disorder. Anxiety. SURGICAL HISTORY : Tonsillectomy. Hysterectomy. Right ear mass removed. Spinal cord stimulator implant. Breast implant s. Oophorectomy. Low back fusion. Blood transfusions. ENCOUNTER: Initial ACUITY: 2 days PAIN SCORE: 6/10 LOCATION: Right chest MEASUREMENTS: SKIN TO PARIETAL PLEURA: 1.4 cm SKIN TO MAX SAFE DEPTH: 4.0 cm ESTIMATED FLUID VOLUME: 543 cc FLUID COMPOSITION: simple FINDINGS: Pleural effusion as above. A yazmin was placed on the skin surface superficial to the pleural fluid col lection. CONCLUSION: Moderate-sized pleural effusion marked for thoracentesis. Bo Marmolejo MD on November 21, 2016 at 20:50 Board Certified Radiologist. This report was verified electronically.
--- NOTE | 2016-11-21 22:20 | RADRPT ---
EXAM DATE/TIME: 11/21/2016 18:29 [facility] COMPARISON: No previous studies available for comparison. INDICATIONS : Left pleural effusion. MEDICAL HISTORY : Osteoporosis. Inflammatory bowel disease. Arthritis. Thyroid disease. Cataracts. Glaucoma. Acute ence phalopathy. Syncope. Migraines. Pericardial effusion. Athsma. Pneumonia. Pleural effusion. HTN. Hyper thyroidism. Shortness of breath. Cervial radiculopathy. Metabolic encephilitis. Anemia. Hay fever. Bi polar disorder. Anxiety. SURGICAL HISTORY : Tonsillectomy. Hysterectomy. Right ear mass removed. Spinal cord stimulator implant. Breast implant s. Oophorectomy. Low back fusion. Blood transfusions. ENCOUNTER: Initial ACUITY: 2 days PAIN SCORE: 6/10 LOCATION: Left chest MEASUREMENTS: SKIN TO PARIETAL PLEURA: 1.9 cm SKIN TO MAX SAFE DEPTH: 4.5 cm ESTIMATED FLUID VOLUME: 728 cc FLUID COMPOSITION: simple FINDINGS: Pleural effusion as above. A yazmin was placed on the skin surface superficial to the pleural fluid col lection. CONCLUSION: Left pleural effusion marked for thoracentesis. Bo Marmolejo MD on November 21, 2016 at 22:18 Board Certified Radiologist. This report was verified electronically.
[2016-11-21] MEDS: DILTIAZEM 125 MG/NS 100 ML IV SCH ×2 (22:57)
[2016-11-22] VITALS (7 sets, daily range): BP systolic 109–131; BP diastolic 63–84; PULSE 77–135; RESP 12–20; TEMP 97.6–98.3; O2SAT 91–97
[2016-11-22] MEDS: oxyCODONE/ACETAMINOPHEN 5 MG/325 MG TAB PO PRN (02:29)
[2016-11-22 05:16] LABS: AUTOMATED NEUTROPHIL # 11.8 TH/MM3 (1.8-7.7); BASOPHIL % 0.3 % (0.0-2.0); EOSINOPHIL # 0.5 TH/MM3 (0-0.4); EOSINOPHIL % 3.3 % (0.0-4.0); HEMATOCRIT 28.7 % (35.0-46.0); HEMO FLAGS DIFF FINAL; LYMPH % 13.4 % (9.0-44.0); LYMPHOCYTE # 2.1 TH/MM3 (1.0-4.8); MEAN CELL VOLUME 97.8 FL (80.0-100.0); MEAN CORPUSCULAR HGB CONC 32.7 % (32.0-36.0); MONO % 7.4 % (0.0-8.0); NEUT % 75.6 % (16.0-70.0); PLATELET COUNT 505 TH/MM3 (150-450); RED BLOOD COUNT 2.94 MIL/MM3 (4.00-5.30); RED CELL DISTRIBUTION WIDTH 13.4 % (11.6-17.2); WHITE BLOOD COUNT 15.6 TH/MM3 (4.0-11.0)
[2016-11-22 05:34] LABS: BICARBONATE 31.6 MEQ/L (21.0-32.0); POTASSIUM 4.4 MEQ/L (3.5-5.1)
[2016-11-22] MEDS: ACETAMINOPHEN/HYDROcodone 325 MG/5 MG TAB PO PRN ×2 (05:43→22:10)
[2016-11-22] MEDS: LEVOTHYROXINE SODIUM 75 MCG TAB PO SCH (05:43)
[2016-11-22] MEDS: INSULIN ASPART SUPPLEMENTAL SCALE SQ SCH ×4 (06:00→18:00)
--- NOTE | 2016-11-22 06:43 | RADRPT ---
EXAM DATE/TIME: 11/22/2016 05:37 [facility] COMPARISON: CHEST SINGLE AP, November 21, 2016, 6:07. INDICATIONS : Post thoracotomy. MEDICAL HISTORY : None. SURGICAL HISTORY : None. ENCOUNTER: Subsequent ACUITY: 3 days PAIN SCORE: Non-responsive. LOCATION: Bilateral chest FINDINGS: Central chest tube and stimulator wire again noted. Basilar airspace disease and pleural effusions ar e stable to slightly increased from November 21. No pneumothorax. CONCLUSION: 1. Stable to slight increase in size of basilar airspace disease and pleural effusions since November 21. German Joseph MD on November 22, 2016 at 6:40 Board Certified Radiologist. This report was verified electronically.
--- NOTE | 2016-11-22 07:41 | HHI.CCPN ---
Subjective Remarks/Hospital Course 11/20: 71-year-old female came to the emergency room brought by EMS with history of respiratory distress. Patient is awake but appears to be in significant distress. As per the paramedics patient was discharged from [facility] yesterday after being admitted for couple days for pneumonia. Patient told me that they saw fluid around her heart. She was given diuretics and she was discharged home yesterday. However patient says that she did not really feel 100% better and overnight shortness of breath worsened. She had a heart rate in the 140s when she arrived and diaphoretic. Patient was short of breath at rest. Patient has history of chronic pain and has a spinal cord stimulator along with morphine pump. She says she had history of asthma as a child. No history of fever or chills. Patient says she was given antibiotics in the hospital but was not discharged home on prescriptions. Patient was unable to give much descriptive history given her respiratory distress status. Her oxygen saturation was 96-98%. Patient was evaluated by Dr. Puentes in the ER, a stat bedside echo revealed large pericardial effusion with tamponade physiology for which she underwent emergent pericardiocentesis under ultrasound guidance by Dr. Puentes with removal of 125 cc of bloody pericardial fluid following which she had some improvement in her dyspnea. She did not have any documented hypotension per ER physician. Patient was accepted for admission by critical care medicine service. Dr. Smith from CT surgery was consulted and discussed the case with Dr. Puentes earlier. He is deciding regarding possible pericardial drain placement. When I evaluated the patient in the ER she was sitting up in bed did not appear to be in any acute distress though is slightly dyspneic. She denied any chest pain denied any nausea or abdominal discomfort. Denied any hemoptysis or chronic cough. 11/21: Patient underwent pericardial drain placement on 11/21 with removal of 400 cc of hemorrhagic pericardial fluid by Dr. Fox under general anesthesia tolerated procedure well. She has put out 80 cc overnight from her pericardial drain. She has been tachycardic overnight with heart rate going up to the 160s and appears to be in atrial flutter/fib. She feels her breathing is a little better. Patient was given Cardizem 20 mg IV this morning by me for A. fib with RVR with a heart rate came down to the 70s. No hypotension overnight. 11/22: Paroxysmal A. fib following pericardial drain placement. On Cardizem and amiodarone drips currently. Resting in bed comfortably at the time of my evaluation this morning. Minimal shortness of breath. Denies any chest pain currently. Tolerating by mouth diet. Objective Vital Signs Date Time Temp Pulse Resp B/P Pulse Ox O2 Delivery O2 Flow Rate FiO2 11/22/16 03:00 98.1 77 12 122/65 91 109/63 11/21/16 19:41 Nasal Cannula 4.00 Intake and Output 11/21/16 11/21/16 11/22/16 08:00 16:00 00:00 Intake Total 1940 ml 1750 ml Output Total 380 ml 1958 ml Balance 1560 ml -208 ml Result Diagram: 11/22/1643911/22/16 0440 Imaging Rest x-ray portable which was personally reviewed: Left pleural effusion making visualization of left lower lobe difficult, otherwise clear lung welch. Objective Remarks Physical Exam Narrative GENERAL: Elderly female, laying in bed, not in acute distress SKIN: Warm and dry HEAD: Atraumatic. Normocephalic. EYES: Pupils equal and round. No scleral icterus. No injection or drainage. ENT: No nasal bleeding or discharge. Mucous membranes pink and moist. NECK: Trachea midline. No JVD CARDIOVASCULAR: S1 and S2 irregularly irregular, RESPIRATORY: No accessory muscle use. Scattered rhonchi. Breath sounds equal bilaterally though decreased at the bases. No wheezing or crackles GASTROINTESTINAL: Abdomen soft, non-tender, nondistended. Hepatic and splenic margins not palpable. MUSCULOSKELETAL: No obvious deformities. No clubbing. No cyanosis. No edema. NEUROLOGICAL: Awake and alert. No obvious cranial nerve deficits. Motor grossly within normal limits. Normal speech. PSYCHIATRIC: Appropriate mood and affect; insight and judgment normal. A/P Assessment and Plan 71-year-old female with: Large pericardial effusion with tamponade physiology s/p pericardial drain placement Bilateral Pleural effusions Ascites Left lower lobe infiltrate Hypothyroidism A. fib/ flutter with RVR History of asthma History of bipolar disorder History of chronic pain status post spinal cord stimulator placement as well as morphine pump. Plan: Neuro: Continue pain meds. Morphine/Percocet when necessary. Patient has a morphine pump in place and a spinal cord stimulator. Continue psych meds. Cardiovascular: Status post emergent pericardiocentesis. CT surgery following. Patient underwent pericardial drain placement on 11/[address] Smith with drainage of 400 cc of pericardial fluid. Hemorrhagic pericardial effusion noted. Await pericardial fluid cytology. Cardiology consulted and following. Given Cardizem 20 mg IV 1 for A. fib with RVR and then started on cardizem and amiodarone gtt on 11/21. Lasix 20 mg IV 1 dose in view of bilateral pleural effusions on chest x-ray on 11/21. Will continue lasix 20mg IV [id number]. Pulmonary: Continue supplemental O2. Pulmonary consult requested to further evaluate pericardial/left pleural effusion as well as underlying left lower lobe infiltrate. Patient may need bronchoscopy/ thoracentesis. GI/liver: Tolerating PO diet. CT Abd/pelvis did not reveal any intra-abdominal neoplasm, showed minimal ascites, bilateral pleural effusions. (in v/o hemorrhagic pericardial effusion raising concern for malignancy) Renal/: Strict intake output, monitor and replete electrolytes, follow BUN/ creatinine. Heme: Follow CBC. ID: No antibiotics at this time. Endocrine: SSI for glycemic control if needed. Continue Synthroid Prophylaxis: PPI/SCDs. No heparin or Lovenox till cleared by Dr. Smith. Time spent on critical care excluding procedures 30 minutes Rubin Mccrary MD Nov 22, 2016 07:41
[2016-11-22] MEDS: CHLORHEXIDINE 0.12% (ORAL KIT) 15 ML CUP MT SCH (07:46)
[2016-11-22] MEDS: SODIUM CHLORIDE 0.9% FLUSH 5 ML FLUSH IV FLUSH SCH ×2 (09:00→21:00)
[2016-11-22] MEDS: VENLAFAXINE HCL XR 75 MG CAP PO SCH (09:00)
[2016-11-22] MEDS: MULTIVITAMIN-OPHTHALMIC 1 TAB PO SCH ×2 (09:01→22:00)
[2016-11-22] MEDS: GABAPENTIN 300 MG CAP PO SCH ×2 (09:01→22:01)
[2016-11-22] MEDS: FUROSEMIDE 20 MG/2 ML VIAL IV PUSH SCH ×2 (09:01→18:29)
[2016-11-22] MEDS: clonazePAM 0.5 MG TAB PO SCH ×2 (09:02→22:01)
[2016-11-22] MEDS: PSYLLIUM FIBER SF/GF 6 GM POWD PKT PO SCH ×2 (09:02→22:01)
[2016-11-22] MEDS: DOCUSATE SODIUM 100 MG CAP PO SCH ×2 (09:02→22:01)
[2016-11-22] MEDS: ESTRADIOL 1 MG TAB PO SCH (09:02)
--- NOTE | 2016-11-22 09:13 | PD.CAR.PN ---
CVT Progress Note Subjective/Hospital Course: 62/ female recent treatment for viral syndrome URI, seen and eval and found to have left pleural effusion and moderate sized pericardial effusion / no tamponade noted / treated and discharged home brought in via [facility] 11/20 resp distress, tachycardia / emergent pericardicentesis was done at bedside and 130cc bloody fluid removed, post ECHO done, with some cardiac compromise , pt then went to OR , underwent pericardial window and removed 400cc bloody fluid ( cultures to date neg, path pending ) PMH: chronic back pain, prior back surgery, spinal stimulator, pain pump, Bipolar dz , hypothyroidism 11/21 pericardial cath drained 80 cc/ bloody fluid will leave drain in place today / eval for removal in am new onset afib RVR this am , treated with cardizem , amiodarone , then cardizem gtt 11/22 pt drained 7cc/ serous drainage from chest tube, will eval for removal later today on 5 liter nasal cannula continue pulm toileting on cardizem and amiodarone gtt / will continue as per Dr Villafuerte discretion will transfer to [facility] if ok with CCM Objective: GENERAL: SKIN: Warm and dry. HEAD: Normocephalic. EYES: No scleral icterus. No injection or drainage. NECK: Supple, trachea midline. No JVD or lymphadenopathy. CARDIOVASCULAR: Regular rate and rhythm without murmurs, gallops, or rubs. pericardial drain in place RESPIRATORY: diminished in bases, bibasilar crackles Breath sounds equal bilaterally. No accessory muscle use. GASTROINTESTINAL: Abdomen soft, non-tender, nondistended. MUSCULOSKELETAL: No cyanosis, or edema. BACK: Nontender without obvious deformity. No CVA tenderness. Vital Signs Date Time Temp Pulse Resp B/P Pulse Ox O2 Delivery O2 Flow Rate FiO2 11/22/16 07:12 97 Nasal Cannula 5.00 11/22/16 07:00 103 11/22/16 07:00 98.3 109 18 131/74 97 112/84 11/22/16 03:00 98.1 77 12 122/65 91 109/63 11/22/16 03:00 89 11/21/16 23:00 98.4 85 16 115/67 92 119/72 11/21/16 23:00 85 11/21/16 19:41 92 Nasal Cannula 4.00 11/21/16 19:00 98.5 96 20 118/74 91 132/92 11/21/16 19:00 98 11/21/16 16:00 98.6 83 20 116/67 94 100/69 11/21/16 15:00 130 11/21/16 12:00 98.1 140 20 120/60 94 138/80 11/21/16 11:00 98.1 140 20 118/63 94 133/63 11/21/16 11:00 140 Labs: Laboratory Tests Test 11/22/16 04:40 White Blood Count 15.6 TH/MM3 (4.0-11.0) Red Blood Count 2.94 MIL/MM3 (4.00-5.30) Hemoglobin 9.4 GM/DL (11.6-15.3) Hematocrit 28.7 % (35.0-46.0) Mean Corpuscular Volume 97.8 FL (80.0-100.0) Mean Corpuscular Hemoglobin 32.0 PG (27.0-34.0) Mean Corpuscular Hemoglobin 32.7 % Concent (32.0-36.0) Red Cell Distribution Width 13.4 % (11.6-17.2) Platelet Count 505 TH/MM3 (150-450) Mean Platelet Volume 6.9 FL (7.0-11.0) Neutrophils (%) (Auto) 75.6 % (16.0-70.0) Lymphocytes (%) (Auto) 13.4 % (9.0-44.0) Monocytes (%) (Auto) 7.4 % (0.0-8.0) Eosinophils (%) (Auto) 3.3 % (0.0-4.0) Basophils (%) (Auto) 0.3 % (0.0-2.0) Neutrophils # (Auto) 11.8 TH/MM3 (1.8-7.7) Lymphocytes # (Auto) 2.1 TH/MM3 (1.0-4.8) Monocytes # (Auto) 1.1 TH/MM3 (0-0.9) Eosinophils # (Auto) 0.5 TH/MM3 (0-0.4) Basophils # (Auto) 0.0 TH/MM3 (0-0.2) CBC Comment DIFF FINAL Differential Comment Sodium Level 135 MEQ/L (136-145) Potassium Level 4.4 MEQ/L (3.5-5.1) Chloride Level 98 MEQ/L (98-107) Carbon Dioxide Level 31.6 MEQ/L (21.0-32.0) Anion Gap 5 MEQ/L (5-15) Blood Urea Nitrogen 9 MG/DL (7-18) Creatinine 0.50 MG/DL (0.50-1.00) Estimat Glomerular Filtration 122 ML/MIN Rate (>89) Random Glucose 95 MG/DL (74-106) Calcium Level 7.7 MG/DL (8.5-10.1) Result Diagram: 11/22/1643911/22/16439 Telemetry: RIVER rate improved (1) Pericardial effusion Plan: keep pericardial drain in place for now, re-eval for removal this afternoon await cytology no growth in cultures to date (2) Paroxysmal atrial fibrillation Plan: Paroxysms of atrial fib last night and this morning. Atrial fib likely due to the pericardial effusion. on amiodarone and cardizem gtt (3) Asthmatic bronchitis , chronic Plan: on nebs, symbicort, pulm following Flor Dunham Nov 22, 2016 09:13
--- NOTE | 2016-11-22 09:54 | PD.CARD.PN ---
Subjective Subjective Remarks Still with mild dyspnea. No CP, dizziness, palpitations. Objective Medications Item Value Date Time Furosemide 20 mg 11/22/16 0900 (Lasix Inj) BID@09,18/IV PUSH 11/22/16 0901 Diltiazem HCl 125 125 ml @ 0 mls/hr 11/21/16 1445 mg/Sodium Chloride TITRATE/IV 11/21/16 2257 Amiodarone HCl 259 ml @ 0 mls/hr 11/21/16 1045 450 mg/Dextrose CONTINUOUS/IV 11/21/16 2043 Vital Signs / I&O Vital Signs Date Time Temp Pulse Resp B/P Pulse Ox O2 Delivery O2 Flow Rate FiO2 11/22/16 07:12 97 Nasal Cannula 5.00 11/22/16 07:00 103 11/22/16 07:00 98.3 109 18 131/74 97 112/84 11/22/16 03:00 98.1 77 12 122/65 91 109/63 11/22/16 03:00 89 11/21/16 23:00 98.4 85 16 115/67 92 119/72 11/21/16 23:00 85 11/21/16 19:41 92 Nasal Cannula 4.00 11/21/16 19:00 98.5 96 20 118/74 91 132/92 11/21/16 19:00 98 11/21/16 16:00 98.6 83 20 116/67 94 100/69 11/21/16 15:00 130 11/21/16 12:00 98.1 140 20 120/60 94 138/80 11/21/16 11:00 98.1 140 20 118/63 94 133/63 11/21/16 11:00 140 I/O 11/21/16 11/21/16 11/21/16 11/22/16 11/22/16 11/22/16 07:00 15:00 23:00 07:00 15:00 23:00 Intake Total 1940 ml 1750 ml 1059 ml Output Total 380 ml 1958 ml 1270 ml Balance 1560 ml -208 ml -211 ml Intake Oral 1200 ml 900 ml 240 ml IV Total 740 ml 850 ml 819 ml Output Urine Total 300 ml 1900 ml 1200 ml Chest Tube Drainage Total 80 ml 58 ml 70 ml # Bowel Movements 0 0 0 Physical Exam GENERAL: Well developed, well nourished. No acute distress. HEENT: Jugular venous pressure is normal. CHEST: Lungs clear to auscultation bilaterally. Unlabored respiratory effort. CARDIAC: Regular rate and rhythm without S3, S4, or murmur. ABDOMEN: Soft, nontender, no hepatosplenomegaly. Bowel sounds present. EXTREMITIES: No clubbing, cyanosis, or edema. Laboratory Laboratory Tests Test 11/22/16 04:40 White Blood Count 15.6 TH/MM3 Red Blood Count 2.94 MIL/MM3 Hemoglobin 9.4 GM/DL Hematocrit 28.7 % Mean Corpuscular Volume 97.8 FL Mean Corpuscular Hemoglobin 32.0 PG Mean Corpuscular Hemoglobin 32.7 % Concent Red Cell Distribution Width 13.4 % Platelet Count 505 TH/MM3 Mean Platelet Volume 6.9 FL Neutrophils (%) (Auto) 75.6 % Lymphocytes (%) (Auto) 13.4 % Monocytes (%) (Auto) 7.4 % Eosinophils (%) (Auto) 3.3 % Basophils (%) (Auto) 0.3 % Neutrophils # (Auto) 11.8 TH/MM3 Lymphocytes # (Auto) 2.1 TH/MM3 Monocytes # (Auto) 1.1 TH/MM3 Eosinophils # (Auto) 0.5 TH/MM3 Basophils # (Auto) 0.0 TH/MM3 CBC Comment DIFF FINAL Differential Comment Sodium Level 135 MEQ/L Potassium Level 4.4 MEQ/L Chloride Level 98 MEQ/L Carbon Dioxide Level 31.6 MEQ/L Anion Gap 5 MEQ/L Blood Urea Nitrogen 9 MG/DL Creatinine 0.50 MG/DL Estimat Glomerular Filtration 122 ML/MIN Rate Random Glucose 95 MG/DL Calcium Level 7.7 MG/DL Assessment and Plan Problem List: (1) Pericardial effusion Assessment and Plan: Stable s/p pericardial window placement for tamponade. Patient apparently felt to have clinical, exam evidence for tamponade as I do not see any definite tamponade physiology by echo, nor was it reported by Dr. Zaman. Patient without hypotension. Suspect her severe dyspnea has been more due to pleural effusion rather than pericardial effusion. Cont pericardial drain management by Dr. Fox (2) Paroxysmal atrial fibrillation Assessment and Plan: In and out of atrial fib/flutter. Rec continue IV Cardizem/IV Amiodarone for now. Thromboembolic risk overall low. Rec daily aspirin. Code Status full code Discussed Condition With patient Shaheed Villafuerte MD Nov 22, 2016 09:54
[2016-11-22 10:17] LABS: BLOOD, URINE NEG (NEG); COMMENT (UR) CULT NOT INDICATED; CULTURE IF INDICATED CULT NOT INDICATED; GLUCOSE,URINE NEG (NEG); KETONE, URINE NEG (NEG); NITRITE,URINE NEG (NEG); PH, URINE 6.5 (5.0-8.5); SQUAMOUS EPITHELIAL CELL URINE 3 /hpf (0-5); URINE COLOR LIGHT-YELLOW (YELLW/STRAW)
--- NOTE | 2016-11-22 11:44 | EKG ---
Date Performed: 11/21/2016 Time Performed: 03:30:56 PTAGE: 71 years EKG: Atrial fibrillation with rapid ventricular response Extensive ST-T changes may be due to my ocardial ischemia Low QRS voltages in precordial leads Abnormal ECG PREVIOUS TRACING : 11/20/2016 10.17 DOCTOR: Jackson Ortiz Interpretating Date/Time 11/22/2016 11:43:49
[2016-11-22] MEDS: ASPIRIN EC 81 MG TABEC PO SCH (13:00)
--- NOTE | 2016-11-22 14:27 | RADRPT ---
EXAM DATE/TIME: 11/22/2016 13:45 [facility] COMPARISON: CHEST SINGLE AP, November 22, 2016, 5:37. INDICATIONS : S/p thoracentesis MEDICAL HISTORY : Hypertension. Cardiovascular disease. SURGICAL HISTORY : breast implants, spinal stimulator ENCOUNTER: Initial ACUITY: 2 days PAIN SCORE: 0/10 LOCATION: Bilateral chest FINDINGS: A single view of the chest demonstrates bibasilar airspace disease right pleural effusion. Status pos t left-sided thoracentesis without pneumothorax. Cardiomegaly. Osseous structures are intact. CONCLUSION: No pneumothorax. Wilmer Jiménez MD on November 22, 2016 at 14:24 Board Certified Radiologist. This report was verified electronically.
[2016-11-22 14:31] LABS: PLEURAL FLUID LYMPHS 29 %
[2016-11-22 14:37] LABS: TOTAL PROTEIN,PLEURAL FLUID 2.7 GM/DL
[2016-11-22] MEDS: DIVALPROEX SODIUM DELAYED RELEASE 250 MG TAB PO SCH (22:00)
[2016-11-22] MEDS: QUEtiapine FUMARATE 25 MG TAB PO SCH (22:00)
[2016-11-22] MEDS: MELATONIN 5 MG TAB PO SCH (22:00)
[2016-11-22] MEDS: PANTOPRAZOLE SOD 40 MG DELAYED RELEASE TAB PO SCH (22:01)
[2016-11-23] VITALS (10 sets, daily range): BP systolic 92–141; BP diastolic 56–86; PULSE 74–115; RESP 18–20; TEMP 97.8–99.7; O2SAT 91–97
[2016-11-23] MEDS: DILTIAZEM 125 MG/NS 100 ML IV SCH ×4 (03:40→20:04)
[2016-11-23] MEDS: INSULIN ASPART SUPPLEMENTAL SCALE SQ SCH ×4 (06:00→16:35)
--- NOTE | 2016-11-23 06:18 | RADRPT ---
EXAM DATE/TIME: 11/23/2016 04:23 [facility] COMPARISON: CHEST SINGLE AP, November 22, 2016, 13:45. INDICATIONS : Shortness of breath, possible pulmonary disease. MEDICAL HISTORY : Hypertension. Cardiovascular disease. SURGICAL HISTORY : None. ENCOUNTER: Subsequent ACUITY: 3 days PAIN SCORE: 0/10 LOCATION: Bilateral chest FINDINGS: Central chest tube and spinal stimulator wire unchanged. Basal airspace disease and pleural effusions also similar to November 22. No new infiltrate. No pneumothorax. CONCLUSION: 1. Stable basilar airspace disease and pleural effusions compared with November 22. German Joseph MD on November 23, 2016 at 6:16 Board Certified Radiologist. This report was verified electronically.
[2016-11-23] MEDS: LEVOTHYROXINE SODIUM 75 MCG TAB PO SCH (06:20)
[2016-11-23] MEDS: ACETAMINOPHEN/HYDROcodone 325 MG/5 MG TAB PO PRN ×3 (06:30→20:41)
--- NOTE | 2016-11-23 06:58 | MP ---
cc: SAMMY LOPEZ DATE OF SURGERY 11/22/2016 PROCEDURE Left thoracentesis. PREOPERATIVE DIAGNOSIS Left pleural effusion. ANESTHESIA 1% Xylocaine. SURGEON Dr. Amanda Lopez PROCEDURE AND FINDINGS The patient's left posterior back was prepped with chlorhexidine solution following which sterile drapes were applied. 1% Xylocaine was then injected in the intercostal space in the posterior axillary line after which a small incision made with a scalpel blade. Following this, a 14-gauge catheter was inserted in the pleural space. This was connected to a vacuum bottle. Approximately 750 cc of serosanguineous fluid was aspirated at which time the flow stopped. The patient tolerated the procedure well. Sammy Lopez MD JVD/SSB /1:04 PM /6:55 AM
--- NOTE | 2016-11-23 08:14 | PD.CARD.PN ---
Subjective Subjective Remarks Mild dyspnea persists. No CP, dizziness, palpitations. Slept well. No nausea , abdominal pain. Objective Medications Item Value Date Time Aspirin 81 mg 11/22/16 1000 (Ecotrin Ec) DAILY/PO 11/22/16 1300 Furosemide 20 mg 11/22/16 0900 (Lasix Inj) BID@09,18/IV PUSH 11/22/16 1829 Amiodarone HCl 259 ml @ 0 mls/hr 11/21/16 1045 450 mg/Dextrose CONTINUOUS/IV 11/21/16 2043 Vital Signs / I&O Vital Signs Date Time Temp Pulse Resp B/P Pulse Ox O2 Delivery O2 Flow Rate FiO2 11/23/16 07:16 94 Nasal Cannula 5.00 11/23/16 04:30 98.2 89 18 141/68 97 11/23/16 04:00 88 11/23/16 00:00 99.7 113 20 141/86 96 11/23/16 00:00 113 11/22/16 23:15 18 11/22/16 20:00 97.8 135 20 131/83 96 11/22/16 20:00 132 11/22/16 15:00 97.6 100 18 126/82 96 11/22/16 15:00 100 11/22/16 12:00 97.8 98 18 126/73 95 Arterial Line 11/22/16 11:00 90 I/O 11/22/16 11/22/16 11/22/16 11/23/16 11/23/16 11/23/16 07:00 15:00 23:00 07:00 15:00 23:00 Intake Total 1059 ml 1330 ml 1037 ml Output Total 1270 ml 2390 ml 1900 ml Balance -211 ml -1060 ml -863 ml Intake Oral 240 ml 960 ml 480 ml IV Total 819 ml 557 ml TPN/PPN 370 ml Output Urine Total 1200 ml 2300 ml 1900 ml Chest Tube Drainage Total 70 ml 90 ml # Bowel Movements 0 0 0 Physical Exam GENERAL: Well developed, well nourished. No acute distress. HEENT: Jugular venous pressure is normal. CHEST: Diminished breath sounds bases. CARDIAC: Regular rate and rhythm without S3, S4, or murmur. ABDOMEN: Soft, nontender, no hepatosplenomegaly. Bowel sounds present. EXTREMITIES: No clubbing, cyanosis, or edema. Laboratory Laboratory Tests Test 11/22/16 11/22/16 09:45 13:00 Urine Color LIGHT-YELLOW Urine Turbidity CLEAR Urine pH 6.5 Urine Specific [place] 1.005 Urine Protein NEG mg/dL Urine Glucose (UA) NEG mg/dL Urine Ketones NEG mg/dL Urine Occult Blood NEG Urine Nitrite NEG Urine Bilirubin NEG Urine Urobilinogen LESS THAN 2.0 MG/DL Urine Leukocyte Esterase NEG Urine RBC LESS THAN 1 /hpf Urine WBC 1 /hpf Urine Squamous Epithelial 3 /hpf Cells Microscopic Urinalysis Comment CULT NOT INDICATED Pleural Fluid pH 8.0 Pleural Fluid WBC 443 /MM3 Pleural Fluid RBC 75 /MM3 Pleural Fluid Neutrophils 39 % Pleural Fluid Lymphocytes 29 % Pleural Fluid Monocytes 10 % Pleural Fluid Eosinophils 2 % Pleural Fluid Basophils 1 % Pleural Fluid Histiocytes 4 % Pleural Fluid Mesothelial 15 % Cells Pleural Fluid Total Protein 2.7 GM/DL Pleural Fluid LDH 97 U/L Pleural Fluid Glucose 122 MG/DL Pleural Fluid Amylase 25 U/L Assessment and Plan Problem List: (1) Pericardial effusion Assessment and Plan: Stable s/p pericardial window placement for tamponade. Patient initially apparently felt to have clinical, exam evidence for tamponade as I do not see any definite tamponade physiology by echo, nor was it reported by Dr. Zaman. Patient without hypotension. Suspect her severe dyspnea has been more due to pleural effusion rather than pericardial effusion; patient improving with diuresis and left thoracentesis. No new recommendations. Cytology still pending. (2) Paroxysmal atrial fibrillation Assessment and Plan: Remains in atrial fib/flutter, currently controlled rates. Rec continue IV Amiodarone, start oral Cardizem. Thromboembolic risk overall low. Rec daily aspirin. Code Status full code Discussed Condition With patient Shaheed Villafuerte MD Nov 23, 2016 08:14
[2016-11-23] MEDS: VENLAFAXINE HCL XR 75 MG CAP PO SCH (09:00)
[2016-11-23] MEDS ORDERED: DILTIAZEM-CD 240 MG CAP ER PO SCH (09:00)
[2016-11-23] MEDS: PSYLLIUM FIBER SF/GF 6 GM POWD PKT PO SCH ×2 (09:42→20:44)
[2016-11-23] MEDS: clonazePAM 0.5 MG TAB PO SCH ×2 (09:42→20:39)
[2016-11-23] MEDS: ESTRADIOL 1 MG TAB PO SCH (09:42)
[2016-11-23] MEDS: GABAPENTIN 300 MG CAP PO SCH ×2 (09:42→20:39)
[2016-11-23] MEDS: ASPIRIN EC 81 MG TABEC PO SCH (09:43)
[2016-11-23] MEDS: FUROSEMIDE 20 MG/2 ML VIAL IV PUSH SCH ×2 (09:43→17:05)
[2016-11-23] MEDS: MULTIVITAMIN-OPHTHALMIC 1 TAB PO SCH ×2 (09:43→20:42)
[2016-11-23] MEDS: DOCUSATE SODIUM 100 MG CAP PO SCH ×2 (09:43→20:43)
[2016-11-23] MEDS: SODIUM CHLORIDE 0.9% FLUSH 5 ML FLUSH IV FLUSH SCH ×2 (09:44→20:56)
--- NOTE | 2016-11-23 10:45 | PD.CAR.PN ---
CVT Progress Note Subjective/Hospital Course: 62/ female recent treatment for viral syndrome URI, seen and eval and found to have left pleural effusion and moderate sized pericardial effusion / no tamponade noted / treated and discharged home brought in via [facility] 11/20 resp distress, tachycardia / emergent pericardicentesis was done at bedside and 130cc bloody fluid removed, post ECHO done, with some cardiac compromise , pt then went to OR , underwent pericardial window and removed 400cc bloody fluid ( cultures to date neg, path pending ) PMH: chronic back pain, prior back surgery, spinal stimulator, pain pump, Bipolar dz , hypothyroidism 11/21 pericardial cath drained 80 cc/ bloody fluid will leave drain in place today / eval for removal in am new onset afib RVR this am , treated with cardizem , amiodarone , then cardizem gtt 11/22 pt drained 7cc/ serous drainage from chest tube, will eval for removal later today on 5 liter nasal cannula continue pulm toileting on cardizem and amiodarone gtt / will continue as per Dr Villafuerte discretion will transfer to [facility] if ok with CCM / pericardial tube removed without difficulty incision lower sternum intact and well approximated s/p left thoracentesis yesterday / drained 750cc fluid culture/ cytology pending Objective: GENERAL: SKIN: Warm and dry./ incision to lower sternum intact HEAD: Normocephalic. EYES: No scleral icterus. No injection or drainage. NECK: Supple, trachea midline. No JVD or lymphadenopathy. CARDIOVASCULAR: Regular rate and rhythm without murmurs, gallops, or rubs. pericardial drain removed / afib rate controlled RESPIRATORY: Breath sounds equal bilaterally. No accessory muscle use. few basiliar crackles GASTROINTESTINAL: Abdomen soft, non-tender, nondistended. MUSCULOSKELETAL: No cyanosis, or edema. BACK: Nontender without obvious deformity. No CVA tenderness. Vital Signs Date Time Temp Pulse Resp B/P Pulse Ox O2 Delivery O2 Flow Rate FiO2 11/23/16 07:16 94 Nasal Cannula 5.00 11/23/16 04:30 98.2 89 18 141/68 97 11/23/16 04:00 88 11/23/16 00:00 99.7 113 20 141/86 96 11/23/16 00:00 113 11/22/16 23:15 18 11/22/16 20:00 97.8 135 20 131/83 96 11/22/16 20:00 132 11/22/16 15:00 97.6 100 18 126/82 96 11/22/16 15:00 100 11/22/16 12:00 97.8 98 18 126/73 95 Arterial Line 11/22/16 11:00 90 Result Diagram: 11/22/1643911/22/16439 (1) Pericardial effusion Plan: Stable s/p pericardial window placement for tamponade. pericardial drain removed . Cytology still pending. (2) Paroxysmal atrial fibrillation Plan: Remains in atrial fib/flutter, currently controlled rates. Rec continue IV Amiodarone, start oral Cardizem. Thromboembolic risk overall low. Rec daily aspirin. (3) s/p pericardial window Plan: drain removed without difficultly will see prn daily dressing change starting in am Flor Dunham Nov 23, 2016 10:45
--- NOTE | 2016-11-23 12:19 | HHI.PR ---
Subjective Remarks Up in a chair. On O2 4L. CXR is stable. Chest tubes are out. No fever. Pleural fluid result pending. Objective Vital Signs Date Time Temp Pulse Resp B/P Pulse Ox O2 Delivery O2 Flow Rate FiO2 11/23/16 11:33 98.1 98 19 101/59 95 11/23/16 11:33 97 11/23/16 07:16 94 Nasal Cannula 5.00 11/23/16 07:00 74 11/23/16 07:00 98.3 86 19 92/56 95 11/23/16 04:30 98.2 89 18 141/68 97 11/23/16 04:00 88 11/23/16 00:00 99.7 113 20 141/86 96 11/23/16 00:00 113 11/22/16 23:15 18 11/22/16 20:00 97.8 135 20 131/83 96 11/22/16 20:00 132 11/22/16 15:00 97.6 100 18 126/82 96 11/22/16 15:00 100 I/O 11/22/16 11/22/16 11/22/16 11/23/16 11/23/16 11/23/16 06:59 14:59 22:59 06:59 14:59 22:59 Intake Total 1059 ml 1330 ml 1037 ml Output Total 1270 ml 2390 ml 1900 ml Balance -211 ml -1060 ml -863 ml Intake Oral 240 ml 960 ml 480 ml IV Total 819 ml 557 ml TPN/PPN 370 ml Output Urine Total 1200 ml 2300 ml 1900 ml Chest Tube Drainage Total 70 ml 90 ml # Bowel Movements 0 0 0 Result Diagram: 11/22/16 0440 11/22/16 0440 Objective Remarks GENERAL: This elderly averagely-built white female is in no acute distress. No cyanosis, icterus or edema. HEENT: Head normocephalic. Pupils reactive. Tongue moist. Throat is injected. Nasal mucosa edematous. NECK: Supple. No lymphadenopathy. No bruits or thyroid enlargement. CHEST: Distant breath sounds with , prolonged expirations. Occ Basal crackles. HEART: The heart sounds are irregular. S1 and S2 with no murmur. No S3. ABDOMEN: Soft, benign. No mass. No organomegaly or tenderness. Bowel sounds are active. EXTREMITIES: Mild peripheral edema, with peripheral pulses that are well felt. Reflexes 1+ with no gross motor deficits. NEUROLOGIC: Cranial nerves grossly intact. RECTAL: Exam deferred. SKIN: No lesions. Assessment and Plan Assessment and Plan IMPRESSION 1. Status post pericardial window placement for large pericardial effusion. 2. Asthma with chronic bronchitis. 3. History of bipolar disorder 4. Bilateral Pleural effusions Plan : 1. Cont Weaning O2 to RA. 2. IS at bedside qid. 3. Chest X ray in am 4. IS at bedside q2h. 5. Duoneb nebs qid PRN. 6. Up with help. 7. Diuretic daily. Mariann Lopez MD Nov 23, 2016 12:18
--- NOTE | 2016-11-23 14:54 | HHI.PR ---
Subjective Remarks Pain control. Objective Vitals Vital Signs Date Time Temp Pulse Resp B/P Pulse Ox O2 Delivery O2 Flow Rate FiO2 11/23/16 11:33 98.1 98 19 101/59 95 11/23/16 11:33 97 11/23/16 07:16 94 Nasal Cannula 5.00 11/23/16 07:00 74 11/23/16 07:00 98.3 86 19 92/56 95 11/23/16 04:30 98.2 89 18 141/68 97 11/23/16 04:00 88 11/23/16 00:00 99.7 113 20 141/86 96 11/23/16 00:00 113 11/22/16 23:15 18 11/22/16 20:00 97.8 135 20 131/83 96 11/22/16 20:00 132 11/22/16 15:00 97.6 100 18 126/82 96 11/22/16 15:00 100 I/O 11/22/16 11/22/16 11/22/16 11/23/16 11/23/16 11/23/16 07:00 15:00 23:00 07:00 15:00 23:00 Intake Total 1059 ml 1330 ml 1037 ml Output Total 1270 ml 2390 ml 1900 ml Balance -211 ml -1060 ml -863 ml Intake Oral 240 ml 960 ml 480 ml IV Total 819 ml 557 ml TPN/PPN 370 ml Output Urine Total 1200 ml 2300 ml 1900 ml Chest Tube Drainage Total 70 ml 90 ml # Bowel Movements 0 0 0 Result Diagram: 11/22/1643911/22/16 044 Objective Remarks GENERAL: This is a well-nourished, well-developed patient, in no apparent distress. Chest wallbandage clean dry intact. CARDIOVASCULAR: Regular rate and rhythm RESPIRATORY: Clear to auscultation. Breath sounds equal bilaterally. No wheezes , rales, or rhonchi. GASTROINTESTINAL: Abdomen soft, non-tender, nondistended. Normal active bowel sounds MUSCULOSKELETAL: Extremities without clubbing, cyanosis, or trace edema NEURO: Alert & Oriented x4 to person, place, time, situation. Moves all ext x4 A/P Assessment and Plan Large pericardial effusion with tamponade physiology s/p emergent pericardiocentesis and pericardial drain placement on 11/20continue post operative care, pain control, physical therapy. Patient does have a history of morphine pump in place a spinal cord stimulator. Current cytology pending, cultures were negative. Bilateral Pleural effusions continue with diuretics Ascitescontinue with diuretics HypothyroidismSynthroid A. fib/ flutter with RVRrate controlled, continue with Cardizem, still on amiodarone drip, aspirin History of asthma, chroniccontinue with bronchodilators as needed. History of bipolar disorderresume home medication Depakote and Effexor History of chronic pain status post spinal cord stimulator placement as well as morphine pump. Prophylaxis: PPI/SCDs. No heparin or Lovenox till cleared by Dr. Smith. Consider transfer out of CVICU Discharge Planning Home with home health care when stable. Catarina Barnard MD Nov 23, 2016 14:54
[2016-11-23] MEDS: RESTASIS EACH EYE SCH (20:36)
[2016-11-23] MEDS: MELATONIN 5 MG TAB PO SCH (20:37)
[2016-11-23] MEDS: MOVANTIK 25 MG PO SCH (20:37)
[2016-11-23] MEDS: PANTOPRAZOLE SOD 40 MG DELAYED RELEASE TAB PO SCH (20:39)
[2016-11-23] MEDS: QUEtiapine FUMARATE 25 MG TAB PO SCH (20:43)
[2016-11-23] MEDS: DIVALPROEX SODIUM DELAYED RELEASE 250 MG TAB PO SCH (21:18)
[2016-11-24] VITALS (14 sets, daily range): BP systolic 97–132; BP diastolic 58–77; PULSE 79–132; RESP 18–20; TEMP 97.7–99; O2SAT 93–100
[2016-11-24] MEDS: DILTIAZEM HCL 60 MG TAB PO SCH ×5 (00:40→23:03)
[2016-11-24] MEDS: DILTIAZEM 125 MG/NS 100 ML IV SCH ×2 (04:40)
[2016-11-24] MEDS: INSULIN ASPART SUPPLEMENTAL SCALE SQ SCH ×3 (06:00→12:00)
[2016-11-24] MEDS: LEVOTHYROXINE SODIUM 75 MCG TAB PO SCH (06:22)
--- NOTE | 2016-11-24 08:47 | PD.CARD.PN ---
Subjective Subjective Remarks Denies dyspnea, palpitations, dizziness, CP. Slept well. Objective Medications Item Value Date Time Diltiazem HCl 60 mg 11/24/16 0000 (Cardizem) Q6HR/PO 11/24/16 0622 Diltiazem HCl 125 125 ml @ 0 mls/hr 11/23/16 1900 mg/Sodium Chloride TITRATE/IV 11/24/16 0440 Aspirin 81 mg 11/22/16 1000 (Ecotrin Ec) DAILY/PO 11/23/16 0943 Furosemide 20 mg 11/22/16 0900 (Lasix Inj) BID@09,18/IV PUSH 11/23/16 1705 Vital Signs / I&O Vital Signs Date Time Temp Pulse Resp B/P Pulse Ox O2 Delivery O2 Flow Rate FiO2 11/24/16 03:00 109 11/24/16 03:00 97.8 109 18 100/74 93 11/23/16 23:00 97.8 115 18 115/73 91 11/23/16 23:00 115 11/23/16 22:23 92 Nasal Cannula 5.00 11/23/16 21:50 18 11/23/16 19:00 97.8 113 18 124/80 91 11/23/16 19:00 113 11/23/16 15:00 106 11/23/16 15:00 98.6 98 19 105/71 95 11/23/16 11:33 98.1 98 19 101/59 95 11/23/16 11:33 97 I/O 11/23/16 11/23/16 11/23/16 11/24/16 11/24/16 11/24/16 07:00 15:00 23:00 07:00 15:00 23:00 Intake Total 1037 ml 1330 ml 565 ml Output Total 1900 ml 1800 ml 2000 ml Balance -863 ml -470 ml -1435 ml Intake Oral 480 ml 880 ml 420 ml IV Total 557 ml 450 ml 145 ml Output Urine Total 1900 ml 1800 ml 2000 ml # Bowel Movements 0 1 0 Physical Exam GENERAL: Well developed, well nourished. No acute distress. HEENT: Jugular venous pressure is normal. CHEST: Diminished breath sounds bases. CARDIAC: Regular rate and rhythm without S3, S4, or murmur. ABDOMEN: Soft, nontender, no hepatosplenomegaly. Bowel sounds present. EXTREMITIES: No clubbing, cyanosis, or edema. Assessment and Plan Problem List: (1) Paroxysmal atrial fibrillation Assessment and Plan: Remains in atrial fib/flutter, uncontrolled rates last night, now normal. Rec stop IV Cardizem, continue oral Cardizem. Resume IV Amiodarone. Thromboembolic risk overall low. Rec daily aspirin. (2) Pericardial effusion Assessment and Plan: Stable s/p pericardial window placement. Stable. No definite tamponade physiology seen on admission echo. Fluid cytology pending. Code Status full code Discussed Condition With patient Shaheed Villafuerte MD Nov 24, 2016 08:47
[2016-11-24] MEDS: SODIUM CHLORIDE 0.9% FLUSH 5 ML FLUSH IV FLUSH SCH ×2 (08:51→21:00)
[2016-11-24] MEDS: ASPIRIN EC 81 MG TABEC PO SCH (08:52)
[2016-11-24] MEDS: GABAPENTIN 300 MG CAP PO SCH ×2 (08:52→21:42)
[2016-11-24] MEDS: clonazePAM 0.5 MG TAB PO SCH ×2 (08:52→21:42)
[2016-11-24] MEDS: MULTIVITAMIN-OPHTHALMIC 1 TAB PO SCH ×2 (08:52→22:06)
[2016-11-24] MEDS: ESTRADIOL 1 MG TAB PO SCH (08:53)
[2016-11-24] MEDS: DOCUSATE SODIUM 100 MG CAP PO SCH ×2 (08:53→21:42)
[2016-11-24] MEDS: FUROSEMIDE 20 MG/2 ML VIAL IV PUSH SCH ×2 (08:53→16:49)
[2016-11-24] MEDS: ACETAMINOPHEN/HYDROcodone 325 MG/5 MG TAB PO PRN ×2 (08:54→21:44)
[2016-11-24] MEDS: VENLAFAXINE HCL XR 75 MG CAP PO SCH (08:55)
[2016-11-24] MEDS: PSYLLIUM FIBER SF/GF 6 GM POWD PKT PO SCH ×2 (08:55→21:00)
[2016-11-24] MEDS ORDERED: AMIODARONE INJ 150 MG in DEXTROSE 5% IN WATER 100ML INJ 97 ML IV ONE ×2 (09:30)
[2016-11-24] MEDS: AMIODARONE INJ 450 MG in DEXTROSE 5% IN WATE(EXCEL) INJ 241 ML IV SCH ×4 (11:01→20:01)
[2016-11-24] MEDS: RESTASIS EACH EYE SCH ×2 (14:04→21:00)
--- NOTE | 2016-11-24 15:28 | HHI.PR ---
Subjective Remarks Once systolic blood sugar checks. Doing well. Pain control. No complaints chest pain shortness of breath. Objective Vitals Vital Signs Date Time Temp Pulse Resp B/P Pulse Ox O2 Delivery O2 Flow Rate FiO2 11/24/16 11:00 83 11/24/16 11:00 98.0 83 18 106/58 93 11/24/16 08:15 95 Nasal Cannula 5.00 11/24/16 08:00 98.9 79 18 100/65 94 11/24/16 08:00 88 11/24/16 03:00 109 11/24/16 03:00 97.8 109 18 100/74 93 11/23/16 23:00 97.8 115 18 115/73 91 11/23/16 23:00 115 11/23/16 22:23 92 Nasal Cannula 5.00 11/23/16 21:50 18 11/23/16 19:00 97.8 113 18 124/80 91 11/23/16 19:00 113 I/O 11/23/16 11/23/16 11/23/16 11/24/16 11/24/16 11/24/16 07:00 15:00 23:00 07:00 15:00 23:00 Intake Total 1037 ml 1330 ml 565 ml 850 ml Output Total 1900 ml 1800 ml 2000 ml 1100 ml Balance -863 ml -470 ml -1435 ml -250 ml Intake Oral 480 ml 880 ml 420 ml 720 ml IV Total 557 ml 450 ml 145 ml 130 ml Output Urine Total 1900 ml 1800 ml 2000 ml 1100 ml # Bowel Movements 0 1 0 1 Result Diagram: 11/22/160 11/22/16 0440 Objective Remarks GENERAL: This is a well-nourished, well-developed patient, in no apparent distress. Chest wallbandage clean dry intact. CARDIOVASCULAR: Regular rate and rhythm RESPIRATORY: Clear to auscultation. Breath sounds equal bilaterally. No wheezes , rales, or rhonchi. GASTROINTESTINAL: Abdomen soft, non-tender, nondistended. Normal active bowel sounds MUSCULOSKELETAL: Extremities without clubbing, cyanosis, or trace edema NEURO: Alert & Oriented x4 to person, place, time, situation. Moves all ext x4 A/P Assessment and Plan Large pericardial effusion with tamponade physiology s/p emergent pericardiocentesis and pericardial drain placement on 11/20continue post operative care, pain control, physical therapy. Patient does have a history of morphine pump in place a spinal cord stimulator. Current cytology negative for any malignant cells, cultures were negative. Bilateral Pleural effusions continue with diuretics Ascitescontinue with diuretics HypothyroidismSynthroid A. fib/ flutter with RVRrate controlled, continue with Cardizem and increase dosing for better rate control, still on amiodarone drip, aspirin History of asthma, chroniccontinue with bronchodilators as needed. History of bipolar disorderresume home medication Depakote and Effexor History of chronic pain status post spinal cord stimulator placement as well as morphine pump. Prophylaxis: PPI/SCDs. No heparin or Lovenox till cleared by Dr. Smith. Consider transfer out of CVICU Discharge Planning Home with home health care when stable and cleared by cardiothoracic surgery and cardiology. Catarina Barnard MD Nov 24, 2016 15:28
[2016-11-24] MEDS: oxyCODONE/ACETAMINOPHEN 5 MG/325 MG TAB PO PRN (16:49)
[2016-11-24] MEDS: PANTOPRAZOLE SOD 40 MG DELAYED RELEASE TAB PO SCH (21:42)
[2016-11-24] MEDS: QUEtiapine FUMARATE 25 MG TAB PO SCH (21:43)
[2016-11-24] MEDS: MELATONIN 5 MG TAB PO SCH (21:44)
[2016-11-24] MEDS: DIVALPROEX SODIUM DELAYED RELEASE 250 MG TAB PO SCH (22:06)
[2016-11-24] MEDS: MOVANTIK 25 MG PO SCH (22:07)
[2016-11-25] VITALS (27 sets, daily range): BP systolic 96–140; BP diastolic 62–88; PULSE 88–135; RESP 14–20; TEMP 97.9–99.6; O2SAT 95–99
[2016-11-25] MEDS ORDERED: DILTIAZEM HCL 25 MG/5 ML VIAL IV ONE (01:00)
[2016-11-25] MEDS ORDERED: DILTIAZEM HCL 60 MG TAB PO SCH (03:30)
[2016-11-25] MEDS: AMIODARONE INJ 450 MG in DEXTROSE 5% IN WATE(EXCEL) INJ 241 ML IV SCH ×2 (05:25)
[2016-11-25] MEDS: DILTIAZEM HCL 60 MG TAB PO SCH ×3 (06:40→18:00)
[2016-11-25] MEDS: LEVOTHYROXINE SODIUM 75 MCG TAB PO SCH (06:40)
[2016-11-25] MEDS: GABAPENTIN 300 MG CAP PO SCH ×2 (07:58→21:00)
[2016-11-25] MEDS: ASPIRIN EC 81 MG TABEC PO SCH (07:58)
[2016-11-25] MEDS: VENLAFAXINE HCL XR 75 MG CAP PO SCH (07:58)
[2016-11-25] MEDS: clonazePAM 0.5 MG TAB PO SCH ×2 (07:59→21:00)
[2016-11-25] MEDS: FUROSEMIDE 20 MG/2 ML VIAL IV PUSH SCH ×2 (07:59→18:00)
[2016-11-25] MEDS: oxyCODONE/ACETAMINOPHEN 5 MG/325 MG TAB PO PRN ×2 (07:59→16:04)
[2016-11-25] MEDS: DOCUSATE SODIUM 100 MG CAP PO SCH ×2 (07:59→21:00)
[2016-11-25] MEDS: PSYLLIUM FIBER SF/GF 6 GM POWD PKT PO SCH ×2 (08:04→21:00)
--- NOTE | 2016-11-25 08:35 | HHI.PR ---
Subjective Remarks complaining of some pain and swelling of the right arm. no chest pain but still with some sob. no fever. Objective Vitals Vital Signs Date Time Temp Pulse Resp B/P Pulse Ox O2 Delivery O2 Flow Rate FiO2 11/25/16 07:00 98.7 100 16 108/72 95 11/25/16 06:39 107 14 104/74 95 11/25/16 06:00 120 103/70 11/25/16 05:30 96/69 11/25/16 05:05 117 11/25/16 05:00 114 11/25/16 05:00 114 96/72 11/25/16 04:47 100/72 11/25/16 04:15 116 18 102/64 95 11/25/16 04:00 106 11/25/16 03:56 108 11/25/16 03:52 133 11/25/16 03:41 99.6 132 20 99/68 95 11/25/16 03:10 114 104/71 11/25/16 03:00 134 11/25/16 02:35 114 11/25/16 02:00 124 11/25/16 01:54 121 11/25/16 01:15 135 11/25/16 00:00 132 11/24/16 23:37 107 11/24/16 23:34 97.7 112 18 132/77 98 11/24/16 23:00 132 11/24/16 22:00 132 11/24/16 21:42 95 11/24/16 21:00 108 11/24/16 20:45 99.0 108 20 115/71 99 11/24/16 20:00 114 11/24/16 19:00 113 11/24/16 19:00 104 11/24/16 15:30 97.9 104 18 97/75 100 11/24/16 15:30 104 11/24/16 11:00 83 11/24/16 11:00 98.0 83 18 106/58 93 I/O 11/24/16 11/24/16 11/24/16 11/25/16 11/25/16 11/25/16 07:00 15:00 23:00 07:00 15:00 23:00 Intake Total 565 ml 850 ml 457 ml 875 ml Output Total 2000 ml 1100 ml 450 ml Balance -1435 ml -250 ml 7 ml 875 ml Intake Oral 420 ml 720 ml 320 ml 600 ml IV Total 145 ml 130 ml 137 ml 275 ml Output Urine Total 2000 ml 1100 ml 450 ml # Voids 5 # Bowel Movements 0 1 2 0 Result Diagram: 11/22/16 0440 11/22/16 0440 Imaging Last Impressions Chest X-Ray 11/23/16 0500 Signed Impressions: Service Date/Time: November 04:23 - CONCLUSION: 1. Stable basilar airspace disease and pleural effusions compared with November 22. German Joseph MD Chest Ultrasound 11/21/16 0000 Signed Impressions: Service Date/Time: Monday, November 21, 2016 18:35 - CONCLUSION: Moderate-sized pleural effusion marked for thoracentesis. Bo Marmolejo MD Abdomen/Pelvis CT 11/20/16 0000 Signed Impressions: Service Date/Time: Monday, November 21, 2016 09:31 - CONCLUSION: 1. Pericardial drain has been placed with good location. I do not see any significant re-accumulation of the pericardial effusion. There are some tiny locules of air underneath the xiphoid process likely related to the catheter placement. 2. Large bilateral pleural effusions with significant passive atelectasis both lung bases. 3. Ascites within the pelvis. Please see above. Jackson Thornton MD Objective Remarks GENERAL: This is a well-nourished, well-developed patient, in no apparent distress. CARDIOVASCULAR: Regular rate and regular rhythm without murmurs, gallops, or rubs. RESPIRATORY: Clear to auscultation. Breath sounds equal bilaterally. No wheezes , rales, or rhonchi. GASTROINTESTINAL: Abdomen soft, non-tender, nondistended. Normal, active bowel sounds MUSCULOSKELETAL: mild swelling and tenderness over the right arm NEURO: Alert & Oriented x4 to person, place, time, situation. Moves all ext x4 skin; erythema noted over the right arm Procedures pericardial window thoracentesis Medications and IVs Current Medications IV Flush 2 ml 2 ml UNSCH PRN IVF FLUSH AFTER USING IV ACCESS Last administered on 11/20/16t 11:45; Start 11/20/16 at 10:15; Stop 11/20/16 at 13:08; Status DC Sodium Chloride (NS 1000 ml Inj) 1,000 ml @ 999 mls/hr BOLUS ONCE IV Last administered on 11/20/16 11:45; Start 11/20/16 at 10:15; Stop 11/20/16 at 11:15 ; Status DC Lidocaine/ Epinephrine 20 ml 20 ml ONCE ONCE INFIL ; Start 11/20/16 at 10:30; Stop 11/20/16 at 10:31; Status DC Sodium Chloride (NS 1000 ml Inj) 1,000 ml @ 999 mls/hr BOLUS ONCE IV Last administered on 11/20/16 13:34; Start 11/20/16 at 11:15; Stop 11/20/16 at 12:15 ; Status DC IV Flush (NS Flush) 2 ml UNSCH PRN IVF FLUSH AFTER USING IV ACCESS; Start 11/20 at 13:15; Stop 11/20/16 at 16:24; Status DC IV Flush (NS Flush) 2 ml BID IVF ; Start 11/20/16 at 21:00; Stop 11/20/16 at 21: 00; Status DC Acetaminophen (Tylenol) 650 mg Q6H PRN PO PAIN 1-10 AND/OR FEVER >101F; Start 11/20/16 at 13:15; Stop 11/20/16 at 16:23; Status DC Acetaminophen/ Hydrocodone Bitart ([place] 5-325 Mg) 1 tab Q4H PRN PO PAIN SCALE 1 TO 5 Last administered on 11/24/16 21:44; Start 11/20/16 at 13:15 Morphine Sulfate (Morphine Inj) 2 mg Q2H PRN IV PAIN SCALE 6 TO 10; Start 11/20 at 13:15; Stop 11/20/16 at 13:17; Status DC Hydromorphone HCl (Dilaudid Pf Inj) 1 mg Q4H PRN IV PAIN SCALE 6 TO 10 Last administered on 11/21/16 19:42; Start 11/20/16 at 13:15 Albuterol/ Ipratropium (Duoneb Neb) 1 ampule Q6HR NEB NEB ; Start 11/20/16 at 16:00; Stop 11/20/16 at 16:17; Status DC Albuterol/ Ipratropium (Duoneb Neb) 1 ampule Q4HR NEB PRN INH SHORTNESS OF BREATH; Start 11/20/16 at 13:15 Chlorhexidine Gluconate (Peridex 0.12% Liq) 15 ml BID@08,20 MT ; Start 11/20/16 at 20:00; Stop 11/22/16 at 09:10; Status DC Miscellaneous Information 1 [id number] XX ; Start 11/20/16 at 13:15; Stop 11/22/16 at 09:10; Status DC Chlorhexidine Gluconate (Chlorhexidine 2% Cloth) 3 pack Taper DAILY@04 TOP Last administered on 11/21/16 03:27; Start 11/21/16 at 04:00; Stop 11/22/16 at 09:10; Status DC Chlorhexidine Gluconate (Chlorhexidine 2% Cloth) 3 pack UNSCH PRN TOP HYGIENIC CARE; Start 11/20/16 at 13:15; Stop 11/22/16 at 09:10; Status DC Clonazepam (KlonoPIN) 0.5 mg BID PO Last administered on 11/25/16 07:59; Start 11/20/16 at 21:00 Divalproex Sodium (Depakote Dr) 750 mg HS PO Last administered on 11/24/16 22: 06; Start 11/20/16 at 21:00 Docusate Sodium (Colace) 100 mg BID PO Last administered on 11/25/16 07:59; Start 11/20/16 at 21:00 Estradiol (Estradiol) 2 mg DAILY PO Last administered on 11/24/16 08:53; Start 11/21/16 at 09:00 Gabapentin (Neurontin) 300 mg BID PO Last administered on 11/25/16 07:58; Start 11/20/16 at 21:00 Levothyroxine Sodium (Synthroid) 75 mcg DAILY@06 PO Last administered on 06:40; Start 11/21/16 at 06:00 Polyethylene Glycol (Miralax) 17 gm DAILY PRN PO CONSTIPATION; Start 11/20/16 at 13:15 Quetiapine Fumarate (SEROquel) 50 mg HS PO Last administered on 11/24/16 21:43 ; Start 11/20/16 at 21:00 Venlafaxine HCl (Effexor Xr) 150 mg DAILY PO Last administered on 11/25/16 07: 58; Start 11/21/16 at 09:00 Patient Own Medication PT OWN MED: 1 DROP E... BID EACH EYE ; Start 11/20/16 at 21:00; Status Cancel Melatonin (Melatonin) 2.5 mg HS PO Last administered on 11/24/16 21:44; Start 11/20/16 at 21:00 Vit C/Vit E/Zinc/ Copper/Lutein (Ocuvite) 1 tab BID PO Last administered on 11/24 22:06; Start 11/20/16 at 21:00 Patient Own Medication PT OWN MED: MOVAN... HS PO ; Start 11/20/16 at 21:00; Status Cancel Psyllium Hydrophilic Mucilloid 1 pkt 1 pkt BID PO Last administered on 08:04; Start 11/20/16 at 21:00 Sodium Chloride (NS 1000 ml Inj) 1,000 ml @ 42 mls/hr [id number] IV Last administered on 11/21/16 11:37; Start 11/20/16 at 13:45; Stop 11/22/16 at 07:43 ; Status DC Midazolam HCl (Versed Inj) 2 mg STK-MED ONCE .ROUTE ; Start 11/20/16 at 13:39; Stop 11/20/16 at 13:40; Status DC Ketamine HCl (Ketalar Inj) 500 mg STK-MED ONCE .ROUTE ; Start 11/20/16 at 13:39 ; Stop 11/20/16 at 13:40; Status DC Miscellaneous (Pill Splitter) 1 ea UNSCH PRN OTHER SEE LABEL COMMENTS; Start at 14:00 Vancomycin HCl 2000 mg 2,000 mg STK-MED ONCE .ROUTE Last administered on 15:38; Start 11/20/16 at 14:01; Stop 11/20/16 at 14:02; Status DC Sodium Chloride (NS 250 ml Inj) 250 ml @ As Directed STK-MED ONCE .ROUTE ; Start 11/20/16 at 14:01; Stop 11/20/16 at 14:02; Status DC Heparin Sodium (Porcine) (Heparin Inj) 40,000 units STK-MED ONCE .ROUTE ; Start 11/20/16 at 14:01; Stop 11/20/16 at 14:02; Status DC Bupivacaine HCl (Marcaine Pf 0.5% Inj) 30 ml STK-MED ONCE .ROUTE Last administered on 11/20/16 16:57; Start 11/20/16 at 14:30; Stop 11/20/16 at 14:31 ; Status DC Sugammadex Sodium (Bridion Inj) 200 mg STK-MED ONCE IV PUSH ; Start 11/20/16 at 14:45; Stop 11/20/16 at 14:46; Status DC IV Flush (NS Flush) 2 ml BID IV FLUSH Last administered on 11/24/16 08:51; Start 11/20/16 at 21:00 IV Flush (NS Flush) 2 ml UNSCH PRN IV FLUSH FLUSH AFTER USING IV ACCESS; Start 11/20/16 at 16:15 Miscellaneous Information STAT ONCE OTHER ; Start 11/20/16 at 16:15; Stop at 17:23; Status DC Vancomycin HCl/ Sodium Chloride (Vancomycin Inj/ NS 250 ml Inj) 250 ml @ 250 mls/hr Q12H IV Last administered on 11/21/16 15:11; Start 11/21/16 at 03:00; Stop 11/21/16 at 15:59; Status DC Pantoprazole Sodium (Protonix) 40 mg HS PO Last administered on 11/24/16 21:42 ; Start 11/20/16 at 21:00 Ondansetron HCl (Zofran Inj) 4 mg Q6H PRN IV PUSH NAUSEA OR VOMITING Last administered on 11/21/16 20:06; Start 11/20/16 at 16:15 Magnesium Hydroxide (Milk Of Magnesia Liq) 30 ml DAILY PRN PO CONSTIPATION; Start 11/20/16 at 16:15 Acetaminophen (Tylenol) 650 mg Q4H PRN PO TEMPERATURE > 101 F Last administered on 11/24/16 23:44; Start 11/20/16 at 16:15 Insulin Aspart (NovoLOG SUPPLEMENTAL SCALE) Q6HR SQ ; Start 11/20/16 at 18:00; Stop 11/24/16 at 15:26; Status DC Miscellaneous Information 1 ONCE ONCE OTHER ; Start 11/20/16 at 16:15; Stop at 16:26; Status DC Dextrose (D50w (Vial) Inj) 25 ml UNSCH PRN IV PUSH HYPOGLYCEMIA-SEE COMMENTS; Start 11/20/16 at 16:15; Stop 11/24/16 at 15:26; Status DC Glucagon (Glucagon Inj) 1 mg UNSCH PRN IV HYPOGLYCEMIA-SEE COMMENTS; Start at 16:15; Stop 11/24/16 at 15:26; Status DC Oxycodone/ Acetaminophen (Percocet 5-325 Mg) 1 tab Q3H PRN PO PAIN SCALE 3 TO 5 Last administered on 11/25/16 07:59; Start 11/20/16 at 16:15 Ketorolac Tromethamine (Toradol Inj) 15 mg Q6H IV PUSH Last administered on 11:35; Start 11/20/16 at 18:00; Stop 11/21/16 at 12:01; Status DC Fentanyl Citrate (fentaNYL INJ) 250 mcg STK-MED ONCE .ROUTE ; Start 11/20/16 at 16:53; Stop 11/20/16 at 16:54; Status DC Labetalol HCl (Trandate Inj) 100 mg STK-MED ONCE .ROUTE Last administered on 17:53; Start 11/20/16 at 17:28; Stop 11/20/16 at 17:29; Status DC Metoprolol Tartrate (Lopressor Inj) 2.5 mg ONCE ONCE IV PUSH ; Start 11/20/16 at 18:00; Stop 11/20/16 at 18:01; Status DC Diltiazem HCl (Cardizem Inj) 25 mg STK-MED ONCE .ROUTE Last administered on 06:40; Start 11/21/16 at 06:31; Stop 11/21/16 at 06:32; Status DC Potassium Chloride (KCl) 30 meq ONCE ONCE PO Last administered on 11/21/16 08 :35; Start 11/21/16 at 07:30; Stop 11/21/16 at 07:31; Status DC Furosemide (Lasix Inj) 20 mg ONCE ONCE IV PUSH Last administered on 11/21/16 08:35; Start 11/21/16 at 07:30; Stop 11/21/16 at 07:31; Status DC Propofol (Diprivan 200 Mg/20 ml Inj) 200 mg STK-MED ONCE IV ; Start 11/20/16 at 09:10; Stop 11/21/16 at 09:11; Status DC Nitroglycerin/ Dextrose (Nitroglycerin-Dextrose Inj) 50 mg STK-MED ONCE IV ; Start 11/20/16 at 09:10; Stop 11/21/16 at 09:11; Status DC Phenylephrine HCl (Neosynephrine/ NS 1000 Mcg/10ml Syr) 2,000 mcg STK-MED ONCE IV ; Start 11/20/16 at 09:10; Stop 11/21/16 at 09:11; Status DC Iohexol (Omnipaque 350 Inj) 94 ml STK-MED ONCE IV Last administered on 09:42; Start 11/21/16 at 09:42; Stop 11/22/16 at 09:10; Status DC Potassium Chloride 20 meq 20 meq ONCE ONCE PO Last administered on 11/21/16 11:39; Start 11/21/16 at 12:00; Stop 11/22/16 at 09:10; Status DC Amiodarone HCl 150 mg/Dextrose 100 ml @ 600 mls/hr NOW ONCE IV Last administered on 11/21/16 11:35; Start 11/21/16 at 10:45; Stop 11/21/16 at 10:54 ; Status DC Amiodarone HCl/ Dextrose (Cordarone Inj/ D5W (Sage) Inj) 259 ml @ 0 mls/hr CONTINUOUS IV Last administered on 11/21/16 20:43; Start 11/21/16 at 10:45; Stop 11/24/16 at 09:38; Status DC Zolpidem Tartrate (Ambien) 5 mg HS PRN PO SLEEP; Start 11/21/16 at 11:00 Nicardipine HCl (Cardene Inj) 25 mg STK-MED ONCE .ROUTE ; Start 11/21/16 at 13: 56; Stop 11/22/16 at 09:10; Status DC Diltiazem HCl 20 mg 20 mg NOW ONCE IV ; Start 11/21/16 at 14:45; Stop 11/21/16 at 14:46; Status DC Diltiazem HCl/ Sodium Chloride (Cardizem Inj/NS Inj) 125 ml @ 0 mls/hr TITRATE IV Last administered on 11/23/16 03:40; Start 11/21/16 at 14:45; Stop 11/23/16 at 08:16; Status DC Diltiazem HCl 25 mg 25 mg STK-MED ONCE .ROUTE Last administered on 11/21/16 15 :03; Start 11/21/16 at 14:33; Stop 11/21/16 at 14:34; Status DC Amiodarone HCl 150 mg/Dextrose 100 ml @ 600 mls/hr ONCE ONCE IV Last administered on 11/21/16 16:00; Start 11/21/16 at 16:00; Stop 11/21/16 at 16:09 ; Status DC Magnesium Sulfate/ Dextrose (Magnesium Sulfate 1 Gm Premix) 100 ml @ 100 mls/ hr ONCE ONCE IV Last administered on 11/21/16 17:00; Start 11/21/16 at 17:00 ; Stop 11/21/16 at 17:59; Status DC Furosemide (Lasix Inj) 20 mg BID@09,18 IV PUSH Last administered on 11/25/16 07 :59; Start 11/22/16 at 09:00 Aspirin (Ecotrin Ec) 81 mg DAILY PO Last administered on 11/25/16 07:58; Start 11/22/16 at 10:00 Diltiazem HCl (Cardizem Cd) 240 mg DAILY PO Last administered on 11/23/16 09:00 ; Start 11/23/16 at 09:00; Stop 11/23/16 at 18:45; Status DC Patient Own Medication PT OWN MED: MOVAN... HS PO Last administered on 22:07; Start 11/23/16 at 21:00 Patient Own Medication PT OWN MED: RESTA... BID EACH EYE Last administered on 21:00; Start 11/23/16 at 21:00 Diltiazem HCl/ Sodium Chloride (Cardizem Inj/NS Inj) 125 ml @ 0 mls/hr TITRATE IV Last administered on 11/24/16 04:40; Start 11/23/16 at 19:00; Stop 11/24/16 at 09:30; Status DC Diltiazem HCl 60 mg 60 mg Q6HR PO Last administered on 11/25/16 06:40; Start at 00:00 Amiodarone HCl 150 mg/Dextrose 100 ml @ 600 mls/hr ONCE ONCE IV Last administered on 11/24/16 11:01; Start 11/24/16 at 09:30; Stop 11/24/16 at 09:39; Status DC Amiodarone HCl/ Dextrose (Cordarone Inj/ D5W (Sage) Inj) 250 ml @ 0 mls/hr CONTINUOUS IV Last administered on 11/25/16 05:25; Start 11/24/16 at 09:30; Stop 11/27/16 at 09:30 Diltiazem HCl (Cardizem Inj) 15 mg ONCE ONCE IV Last administered on 11/25/16 01:12; Start 11/25/16 at 01:00; Stop 11/25/16 at 01:02; Status DC Diltiazem HCl (Cardizem) 60 mg NOW@0330 PO Last administered on 11/25/16 03:37 ; Start 11/25/16 at 03:30; Stop 11/25/16 at 05:59; Status DC A/P Assessment and Plan A/P Large pericardial effusion with tamponade physiology s/p emergent pericardiocentesis and pericardial drain placement on 11/20continue post operative care, pain control, physical therapy. Patient does have a history of morphine pump in place a spinal cord stimulator. Current cytology negative for any malignant cells, cultures were negative. Bilateral Pleural effusions s/p thoracentesis- continue with diuretics- pulmonary following. A. fib/ flutter with RVR continue with Cardizem and increase dosing for better rate control, still on amiodarone drip- continue aspirin- cardiology following. swelling and tenderness along with some erythema over the right arm; will check venous doppler to r/o DVT Ascitescontinue with diuretics HypothyroidismSynthroid History of asthma, chroniccontinue with bronchodilators as needed. History of bipolar disorderresumed home medication Depakote and Effexor History of chronic pain status post spinal cord stimulator placement as well as morphine pump. Prophylaxis: PPI/SCDs. No heparin or Lovenox till cleared by Dr. Smith. Francisco Gramajo MD Nov 25, 2016 08:35
[2016-11-25] MEDS: RESTASIS EACH EYE SCH ×2 (09:00→21:00)
[2016-11-25] MEDS: MULTIVITAMIN-OPHTHALMIC 1 TAB PO SCH ×2 (11:42→21:00)
[2016-11-25] MEDS: ESTRADIOL 1 MG TAB PO SCH (11:42)
[2016-11-25] MEDS: SODIUM CHLORIDE 0.9% FLUSH 5 ML FLUSH IV FLUSH SCH ×2 (11:43→21:00)
--- NOTE | 2016-11-25 14:04 | RADRPT ---
EXAM DATE/TIME: 11/25/2016 12:54 [facility] COMPARISON: No previous studies available for comparison. INDICATIONS : Right arm swelling. MEDICAL HISTORY : Inflammatory bowel disease. Osteoporosis. Arthritis. Hyperthyroidism. Cataracts. Narrow angle glaucom a. Acute encephalopathy. Syncope. Migraines. Pericardial effusion. Pneumonia. Pleural effusion. Cervi desiree radiculopathy. Asthma. Restless leg syndrome. Bipolar disorder. Anxiety. Anemia. Hay fever. SURGICAL HISTORY : Tonsillectomy. Hysterectomy. Right ear mass removed. Spinal cord stimulator implant. Breast implant s. Oophorectomy. Lower back fusion. Blood transfusions. ENCOUNTER: Initial ACUITY: 2 day PAIN SCORE: 6/10 LOCATION: Right arm. FINDINGS: There are abnormal intraluminal echoes within the mid right cephalic vein. There is lack of normal co mpression and blood flow identified with this portion of the vessel. Remaining right upper extremity veins including the internal jugular vein are patent. CONCLUSION: 1. There is occlusive thrombus within the right mid cephalic vein. 2. Remaining veins of the right upper extremity are patent. Medardo Zamudio MD on November 25, 2016 at 14:02 Board Certified Radiologist. This report was verified electronically.
--- NOTE | 2016-11-25 14:58 | PD.CARD.PN ---
Subjective Subjective Remarks Feels well; assymptomatic without CV complaint Objective Medications Current Medications Medications (Trade) Dose Ordered Sig/Narda Route Start Time Stop Time Status Last Admin ([place] 5-325 Mg) 1 tab Q4H PRN PO 11/20/16 13:15 11/24/16 21:44 (Dilaudid Pf Inj) 1 mg Q4H PRN IV 11/20/16 13:15 11/21/16 19:42 (KlonoPIN) 0.5 mg BID PO 11/20/16 21:00 11/25/16 07:59 (Depakote Dr) 750 mg HS PO 11/20/16 21:00 11/24/16 22:06 (Colace) 100 mg BID PO 11/20/16 21:00 11/25/16 07:59 (Estradiol) 2 mg DAILY PO 11/21/16 09:00 11/25/16 11:42 (Neurontin) 300 mg BID PO 11/20/16 21:00 11/25/16 07:58 (Synthroid) 75 mcg DAILY@06 PO 11/21/16 06:00 11/25/16 06:40 (Miralax) 17 gm DAILY PRN PO 11/20/16 13:15 (SEROquel) 50 mg HS PO 11/20/16 21:00 11/24/16 21:43 (Effexor Xr) 150 mg DAILY PO 11/21/16 09:00 11/25/16 07:58 (Melatonin) 2.5 mg HS PO 11/20/16 21:00 11/24/16 21:44 (Ocuvite) 1 tab BID PO 11/20/16 21:00 11/25/16 11:42 (Metamucil Smooth Texture Sf/ Gf Pkt) 1 pkt BID PO 11/20/16 21:00 11/25/16 08:04 (Pill Splitter) 1 ea UNSCH PRN OTHER 11/20/16 14:00 (NS Flush) 2 ml BID IV FLUSH 11/20/16 21:00 11/25/16 11:43 (NS Flush) 2 ml UNSCH PRN IV FLUSH 11/20/16 16:15 (Protonix) 40 mg HS PO 11/20/16 21:00 11/24/16 21:42 (Zofran Inj) 4 mg Q6H PRN IV PUSH 11/20/16 16:15 11/21/16 20:06 (Milk Of Magnesia Liq) 30 ml DAILY PRN PO 11/20/16 16:15 (Tylenol) 650 mg Q4H PRN PO 11/20/16 16:15 11/24/16 23:44 (Percocet 5-325 Mg) 1 tab Q3H PRN PO 11/20/16 16:15 11/25/16 07:59 (Ambien) 5 mg HS PRN PO 11/21/16 11:00 (Lasix Inj) 20 mg BID@,18 IV PUSH 11/22/16 09:00 11/25/16 07:59 (Ecotrin Ec) 81 mg DAILY PO 11/22/16 10:00 11/25/16 07:58 Patient Own Medication PT OWN MED: MOVAN... HS PO 11/23/16 21:00 11/24/16 22:07 Patient Own Medication PT OWN MED: RESTA... BID EACH EYE 11/23/16 21:00 11/25/16 09:00 (Cardizem) 60 mg Q6HR PO 11/24/16 00:00 11/25/16 11:42 (Cordarone) 400 mg TID PO 11/25/16 18:00 Vital Signs / I&O Vital Signs Date Time Temp Pulse Resp B/P Pulse Ox O2 Delivery O2 Flow Rate FiO2 11/25/16 07:00 98.7 100 16 108/72 95 11/25/16 06:39 107 14 104/74 95 11/25/16 06:00 120 103/70 11/25/16 05:30 96/69 11/25/16 05:05 117 11/25/16 05:00 114 11/25/16 05:00 114 96/72 11/25/16 04:47 100/72 11/25/16 04:15 116 18 102/64 95 11/25/16 04:00 106 11/25/16 03:56 108 11/25/16 03:52 133 11/25/16 03:41 99.6 132 20 99/68 95 11/25/16 03:10 114 104/71 11/25/16 03:00 134 11/25/16 02:35 114 11/25/16 02:00 124 11/25/16 01:54 121 11/25/16 01:15 135 11/25/16 00:00 132 11/24/16 23:37 107 11/24/16 23:34 97.7 112 18 132/77 98 11/24/16 23:00 132 11/24/16 22:00 132 11/24/16 21:42 95 11/24/16 21:00 108 11/24/16 20:45 99.0 108 20 115/71 99 11/24/16 20:00 114 11/24/16 19:00 113 11/24/16 19:00 104 11/24/16 15:30 97.9 104 18 97/75 100 11/24/16 15:30 104 I/O 11/24/16 11/24/16 11/24/16 11/25/16 11/25/16 11/25/16 07:00 15:00 23:00 07:00 15:00 23:00 Intake Total 565 ml 850 ml 457 ml 875 ml Output Total 2000 ml 1100 ml 450 ml Balance -1435 ml -250 ml 7 ml 875 ml Intake Oral 420 ml 720 ml 320 ml 600 ml IV Total 145 ml 130 ml 137 ml 275 ml Output Urine Total 2000 ml 1100 ml 450 ml # Voids 5 # Bowel Movements 0 1 2 0 Physical Exam HEENT/neck: -JVD Lungs: CTA B/L CV: RRR, HS distant Ext: -CCE Neuro: Grossly intact Laboratory Laboratory Tests Test 11/20/16 11/20/16 11/21/16 11/22/16 16:00 16:52 05:20 04:40 Pericardial Fluid Total 5.4 GM/DL Protein Pericardial Fluid LDH 1004 U/L Pericardial Fluid Glucose 58 MG/DL Nasal Screen MRSA (PCR) NEGATIVE Phosphorus Level 2.5 MG/DL Magnesium Level 2.0 MG/DL Total Bilirubin 0.2 MG/DL Aspartate Amino Transf 22 U/L (AST/SGOT) Alanine Aminotransferase 27 U/L (ALT/SGPT) Alkaline Phosphatase 100 U/L Total Protein 5.5 GM/DL Albumin 1.9 GM/DL White Blood Count 15.6 TH/MM3 Red Blood Count 2.94 MIL/MM3 Hemoglobin 9.4 GM/DL Hematocrit 28.7 % Mean Corpuscular Volume 97.8 FL Mean Corpuscular Hemoglobin 32.0 PG Mean Corpuscular Hemoglobin 32.7 % Concent Red Cell Distribution Width 13.4 % Platelet Count 505 TH/MM3 Mean Platelet Volume 6.9 FL Neutrophils (%) (Auto) 75.6 % Lymphocytes (%) (Auto) 13.4 % Monocytes (%) (Auto) 7.4 % Eosinophils (%) (Auto) 3.3 % Basophils (%) (Auto) 0.3 % Neutrophils # (Auto) 11.8 TH/MM3 Lymphocytes # (Auto) 2.1 TH/MM3 Monocytes # (Auto) 1.1 TH/MM3 Eosinophils # (Auto) 0.5 TH/MM3 Basophils # (Auto) 0.0 TH/MM3 CBC Comment DIFF FINAL Differential Comment Sodium Level 135 MEQ/L Potassium Level 4.4 MEQ/L Chloride Level 98 MEQ/L Carbon Dioxide Level 31.6 MEQ/L Anion Gap 5 MEQ/L Blood Urea Nitrogen 9 MG/DL Creatinine 0.50 MG/DL Estimat Glomerular Filtration 122 ML/MIN Rate Random Glucose 95 MG/DL Calcium Level 7.7 MG/DL Test 11/22/16 11/22/16 09:45 13:00 Urine Color LIGHT-YELLOW Urine Turbidity CLEAR Urine pH 6.5 Urine Specific [place] 1.005 Urine Protein NEG mg/dL Urine Glucose (UA) NEG mg/dL Urine Ketones NEG mg/dL Urine Occult Blood NEG Urine Nitrite NEG Urine Bilirubin NEG Urine Urobilinogen LESS THAN 2.0 MG/DL Urine Leukocyte Esterase NEG Urine RBC LESS THAN 1 /hpf Urine WBC 1 /hpf Urine Squamous Epithelial 3 /hpf Cells Microscopic Urinalysis Comment CULT NOT INDICATED Pleural Fluid pH 8.0 Pleural Fluid WBC 443 /MM3 Pleural Fluid RBC 75 /MM3 Pleural Fluid Neutrophils 39 % Pleural Fluid Lymphocytes 29 % Pleural Fluid Monocytes 10 % Pleural Fluid Eosinophils 2 % Pleural Fluid Basophils 1 % Pleural Fluid Histiocytes 4 % Pleural Fluid Mesothelial 15 % Cells Pleural Fluid Total Protein 2.7 GM/DL Pleural Fluid LDH 97 U/L Pleural Fluid Glucose 122 MG/DL Pleural Fluid Amylase 25 U/L Imaging Last Impressions Upper Extremity Ultrasound 11/25/16 0000 Signed Impressions: Service Date/Time: Friday, November 25, 2016 12:54 - CONCLUSION: 1. There is occlusive thrombus within the right mid cephalic vein. 2. Remaining veins of the right upper extremity are patent. Medardo Zamudio MD Chest X-Ray 11/23/16 0500 Signed Impressions: Service Date/Time: November 04:23 - CONCLUSION: 1. Stable basilar airspace disease and pleural effusions compared with November 22. German Joseph MD Chest Ultrasound 11/21/16 0000 Signed Impressions: Service Date/Time: Monday, November 21, 2016 18:35 - CONCLUSION: Moderate-sized pleural effusion marked for thoracentesis. Bo Marmolejo MD Abdomen/Pelvis CT 11/20/16 0000 Signed Impressions: Service Date/Time: Monday, November 21, 2016 09:31 - CONCLUSION: 1. Pericardial drain has been placed with good location. I do not see any significant re-accumulation of the pericardial effusion. There are some tiny locules of air underneath the xiphoid process likely related to the catheter placement. 2. Large bilateral pleural effusions with significant passive atelectasis both lung bases. 3. Ascites within the pelvis. Please see above. Jackson Thornton MD Assessment and Plan Problem List: (1) Paroxysmal atrial fibrillation (2) Pericardial effusion Assessment and Plan 1) AF with conversion to NSR on amiodarone, cardizem and ASA 2) Pericardial effusion- stable s/p pericardial window. Cytology pending Discussed Condition With Vanita Fontanez Nov 25, 2016 14:58 Vanita López Nov 25, 2016 14:58
[2016-11-25] MEDS: AMIODARONE 200 MG TAB PO SCH (18:00)
[2016-11-25] MEDS: PANTOPRAZOLE SOD 40 MG DELAYED RELEASE TAB PO SCH (21:00)
[2016-11-25] MEDS: QUEtiapine FUMARATE 25 MG TAB PO SCH (21:00)
[2016-11-25] MEDS: MOVANTIK 25 MG PO SCH (21:00)
[2016-11-25] MEDS: MELATONIN 5 MG TAB PO SCH (21:00)
[2016-11-25] MEDS: DIVALPROEX SODIUM DELAYED RELEASE 250 MG TAB PO SCH (21:00)
[2016-11-25] MEDS: diphenhydrAMINE HCL 25 MG CAP PO PRN (21:58)
[2016-11-25] MEDS: ACETAMINOPHEN/HYDROcodone 325 MG/5 MG TAB PO PRN (21:59)
[2016-11-26] VITALS (24 sets, daily range): BP systolic 102–123; BP diastolic 60–74; PULSE 77–112; RESP 14–18; TEMP 97.6–99.7; O2SAT 93–98
[2016-11-26] MEDS: DILTIAZEM HCL 60 MG TAB PO SCH ×4 (00:50→16:47)
[2016-11-26] MEDS: diphenhydrAMINE HCL 25 MG CAP PO PRN ×2 (03:34→20:42)
[2016-11-26] MEDS: LEVOTHYROXINE SODIUM 75 MCG TAB PO SCH (06:14)
--- NOTE | 2016-11-26 08:47 | HHI.PR ---
Subjective Remarks in no acute distress. has occasional cough. low grade fever earlier. still with some redness over the right arm. also has an erythematous rash on chest around the previous site of drain. d/w the RN. Objective Vitals Vital Signs Date Time Temp Pulse Resp B/P Pulse Ox O2 Delivery O2 Flow Rate FiO2 11/26/16 07:00 95 11/26/16 06:15 99.7 11/26/16 05:00 96 11/26/16 04:11 100 11/26/16 04:00 104 11/26/16 03:17 99.2 98 18 112/66 98 11/26/16 03:00 108 11/26/16 02:00 96 11/26/16 01:00 108 11/26/16 00:46 99.2 94 14 102/62 94 11/26/16 00:00 95 11/25/16 23:00 95 11/25/16 22:00 94 11/25/16 21:00 102 11/25/16 20:00 99 14 140/62 99 11/25/16 20:00 108 11/25/16 19:00 98 11/25/16 17:35 95 21 11/25/16 15:00 88 11/25/16 15:00 90 16 112/88 95 11/25/16 11:00 97.9 94 18 110/85 96 11/25/16 11:00 94 I/O 11/25/16 11/25/16 11/25/16 11/26/16 11/26/16 11/26/16 07:00 15:00 23:00 07:00 15:00 23:00 Intake Total 875 ml 497 ml 240 ml Output Total 1210 ml 700 ml Balance 875 ml -713 ml -460 ml Intake Oral 600 ml 360 ml 240 ml IV Total 275 ml 137 ml 0 ml Output Urine Total 1210 ml 700 ml # Voids 5 # Bowel Movements 0 0 0 Result Diagram: 11/22/16 0440 11/22/16 0440 Imaging Last Impressions Upper Extremity Ultrasound 11/25/16 0000 Signed Impressions: Service Date/Time: Friday, November 25, 2016 12:54 - CONCLUSION: 1. There is occlusive thrombus within the right mid cephalic vein. 2. Remaining veins of the right upper extremity are patent. Medardo Zamudio MD Chest X-Ray 11/23/16 0500 Signed Impressions: Service Date/Time: November 04:23 - CONCLUSION: 1. Stable basilar airspace disease and pleural effusions compared with November 22. German Joseph MD Chest Ultrasound 11/21/16 0000 Signed Impressions: Service Date/Time: Monday, November 21, 2016 18:35 - CONCLUSION: Moderate-sized pleural effusion marked for thoracentesis. Bo Marmolejo MD Abdomen/Pelvis CT 11/20/16 0000 Signed Impressions: Service Date/Time: Monday, November 21, 2016 09:31 - CONCLUSION: 1. Pericardial drain has been placed with good location. I do not see any significant re-accumulation of the pericardial effusion. There are some tiny locules of air underneath the xiphoid process likely related to the catheter placement. 2. Large bilateral pleural effusions with significant passive atelectasis both lung bases. 3. Ascites within the pelvis. Please see above. Jackson Thornton MD Objective Remarks GENERAL: This is a well-nourished, well-developed patient, in no apparent distress. CARDIOVASCULAR: Regular rate and regular rhythm without murmurs, gallops, or rubs. RESPIRATORY: Clear to auscultation. Breath sounds equal bilaterally. No wheezes , rales, or rhonchi. GASTROINTESTINAL: Abdomen soft, non-tender, nondistended. Normal, active bowel sounds MUSCULOSKELETAL: mild swelling and tenderness over the right arm NEURO: Alert & Oriented x4 to person, place, time, situation. Moves all ext x4 skin; erythema noted over the right arm Procedures pericardial window thoracentesis Medications and IVs Current Medications IV Flush 2 ml 2 ml UNSCH PRN IVF FLUSH AFTER USING IV ACCESS Last administered on 11/20/16 11:45; Start 11/20/16 at 10:15; Stop 11/20/16 at 13:08; Status DC Sodium Chloride (NS 1000 ml Inj) 1,000 ml @ 999 mls/hr BOLUS ONCE IV Last administered on 11/20/16 11:45; Start 11/20/16 at 10:15; Stop 11/20/16 at 11:15 ; Status DC Lidocaine/ Epinephrine 20 ml 20 ml ONCE ONCE INFIL ; Start 11/20/16 at 10:30; Stop 11/20/16 at 10:31; Status DC Sodium Chloride (NS 1000 ml Inj) 1,000 ml @ 999 mls/hr BOLUS ONCE IV Last administered on 11/20/16 13:34; Start 11/20/16 at 11:15; Stop 11/20/16 at 12:15 ; Status DC IV Flush (NS Flush) 2 ml UNSCH PRN IVF FLUSH AFTER USING IV ACCESS; Start 11/20 at 13:15; Stop 11/20/16 at 16:24; Status DC IV Flush (NS Flush) 2 ml BID IVF ; Start 11/20/16 at 21:00; Stop 11/20/16 at 21: 00; Status DC Acetaminophen (Tylenol) 650 mg Q6H PRN PO PAIN 1-10 AND/OR FEVER >101F; Start 11/20/16 at 13:15; Stop 11/20/16 at 16:23; Status DC Acetaminophen/ Hydrocodone Bitart (Spearfish 5-325 Mg) 1 tab Q4H PRN PO PAIN SCALE 1 TO 5 Last administered on 11/25/16 21:59; Start 11/20/16 at 13:15 Morphine Sulfate (Morphine Inj) 2 mg Q2H PRN IV PAIN SCALE 6 TO 10; Start 11/20 at 13:15; Stop 11/20/16 at 13:17; Status DC Hydromorphone HCl (Dilaudid Pf Inj) 1 mg Q4H PRN IV PAIN SCALE 6 TO 10 Last administered on 11/21/16 19:42; Start 11/20/16 at 13:15 Albuterol/ Ipratropium (Duoneb Neb) 1 ampule Q6HR NEB NEB ; Start 11/20/16 at 16:00; Stop 11/20/16 at 16:17; Status DC Albuterol/ Ipratropium (Duoneb Neb) 1 ampule Q4HR NEB PRN INH SHORTNESS OF BREATH; Start 11/20/16 at 13:15 Chlorhexidine Gluconate (Peridex 0.12% Liq) 15 ml BID@08,20 MT ; Start 11/20/16 at 20:00; Stop 11/22/16 at 09:10; Status DC Miscellaneous Information 1 Q361D XX ; Start 11/20/16 at 13:15; Stop 11/22/16 at 09:10; Status DC Chlorhexidine Gluconate (Chlorhexidine 2% Cloth) 3 pack Taper DAILY@04 TOP Last administered on 11/21/16 03:27; Start 11/21/16 at 04:00; Stop 11/22/16 at 09:10; Status DC Chlorhexidine Gluconate (Chlorhexidine 2% Cloth) 3 pack UNSCH PRN TOP HYGIENIC CARE; Start 11/20/16 at 13:15; Stop 11/22/16 at 09:10; Status DC Clonazepam (KlonoPIN) 0.5 mg BID PO Last administered on 11/25/16 21:00; Start 11/20/16 at 21:00 Divalproex Sodium (Depakote Dr) 750 mg HS PO Last administered on 11/25/16 21: 00; Start 11/20/16 at 21:00 Docusate Sodium (Colace) 100 mg BID PO Last administered on 11/25/16 21:00; Start 11/20/16 at 21:00 Estradiol (Estradiol) 2 mg DAILY PO Last administered on 11/25/16 11:42; Start 11/21/16 at 09:00 Gabapentin (Neurontin) 300 mg BID PO Last administered on 11/25/16 21:00; Start 11/20/16 at 21:00 Levothyroxine Sodium (Synthroid) 75 mcg DAILY@06 PO Last administered on 06:14; Start 11/21/16 at 06:00 Polyethylene Glycol (Miralax) 17 gm DAILY PRN PO CONSTIPATION; Start 11/20/16 at 13:15 Quetiapine Fumarate (SEROquel) 50 mg HS PO Last administered on 11/25/16 21:00 ; Start 11/20/16 at 21:00 Venlafaxine HCl (Effexor Xr) 150 mg DAILY PO Last administered on 11/25/16 07: 58; Start 11/21/16 at 09:00 Patient Own Medication PT OWN MED: 1 DROP E... BID EACH EYE ; Start 11/20/16 at 21:00; Status Cancel Melatonin (Melatonin) 2.5 mg HS PO Last administered on 11/25/16 21:00; Start 11/20/16 at 21:00 Vit C/Vit E/Zinc/ Copper/Lutein (Ocuvite) 1 tab BID PO Last administered on 11/25 21:00; Start 11/20/16 at 21:00 Patient Own Medication PT OWN MED: MOVAN... HS PO ; Start 11/20/16 at 21:00; Status Cancel Psyllium Hydrophilic Mucilloid 1 pkt 1 pkt BID PO Last administered on 21:00; Start 11/20/16 at 21:00 Sodium Chloride (NS 1000 ml Inj) 1,000 ml @ 42 mls/hr [id number] IV Last administered on 11/21/16 11:37; Start 11/20/16 at 13:45; Stop 11/22/16 at 07:43 ; Status DC Midazolam HCl (Versed Inj) 2 mg STK-MED ONCE .ROUTE ; Start 11/20/16 at 13:39; Stop 11/20/16 at 13:40; Status DC Ketamine HCl (Ketalar Inj) 500 mg STK-MED ONCE .ROUTE ; Start 11/20/16 at 13:39 ; Stop 11/20/16 at 13:40; Status DC Miscellaneous (Pill Splitter) 1 ea UNSCH PRN OTHER SEE LABEL COMMENTS; Start at 14:00 Vancomycin HCl 2000 mg 2,000 mg STK-MED ONCE .ROUTE Last administered on 15:38; Start 11/20/16 at 14:01; Stop 11/20/16 at 14:02; Status DC Sodium Chloride (NS 250 ml Inj) 250 ml @ As Directed STK-MED ONCE .ROUTE ; Start 11/20/16 at 14:01; Stop 11/20/16 at 14:02; Status DC Heparin Sodium (Porcine) (Heparin Inj) 40,000 units STK-MED ONCE .ROUTE ; Start 11/20/16 at 14:01; Stop 11/20/16 at 14:02; Status DC Bupivacaine HCl (Marcaine Pf 0.5% Inj) 30 ml STK-MED ONCE .ROUTE Last administered on 11/20/16 16:57; Start 11/20/16 at 14:30; Stop 11/20/16 at 14:31 ; Status DC Sugammadex Sodium (Bridion Inj) 200 mg STK-MED ONCE IV PUSH ; Start 11/20/16 at 14:45; Stop 11/20/16 at 14:46; Status DC IV Flush (NS Flush) 2 ml BID IV FLUSH Last administered on 11/25/16 21:00; Start 11/20/16 at 21:00 IV Flush (NS Flush) 2 ml UNSCH PRN IV FLUSH FLUSH AFTER USING IV ACCESS; Start 11/20/16 at 16:15 Miscellaneous Information STAT ONCE OTHER ; Start 11/20/16 at 16:15; Stop at 17:23; Status DC Vancomycin HCl/ Sodium Chloride (Vancomycin Inj/ NS 250 ml Inj) 250 ml @ 250 mls/hr Q12H IV Last administered on 11/21/16 15:11; Start 11/21/16 at 03:00; Stop 11/21/16 at 15:59; Status DC Pantoprazole Sodium (Protonix) 40 mg HS PO Last administered on 11/25/16 21:00 ; Start 11/20/16 at 21:00 Ondansetron HCl (Zofran Inj) 4 mg Q6H PRN IV PUSH NAUSEA OR VOMITING Last administered on 11/21/16 20:06; Start 11/20/16 at 16:15 Magnesium Hydroxide (Milk Of Magnesia Liq) 30 ml DAILY PRN PO CONSTIPATION; Start 11/20/16 at 16:15 Acetaminophen (Tylenol) 650 mg Q4H PRN PO TEMPERATURE > 101 F Last administered on 11/24/16 23:44; Start 11/20/16 at 16:15 Insulin Aspart (NovoLOG SUPPLEMENTAL SCALE) Q6HR SQ ; Start 11/20/16 at 18:00; Stop 11/24/16 at 15:26; Status DC Miscellaneous Information 1 ONCE ONCE OTHER ; Start 11/20/16 at 16:15; Stop at 16:26; Status DC Dextrose (D50w (Vial) Inj) 25 ml UNSCH PRN IV PUSH HYPOGLYCEMIA-SEE COMMENTS; Start 11/20/16 at 16:15; Stop 11/24/16 at 15:26; Status DC Glucagon (Glucagon Inj) 1 mg UNSCH PRN IV HYPOGLYCEMIA-SEE COMMENTS; Start at 16:15; Stop 11/24/16 at 15:26; Status DC Oxycodone/ Acetaminophen (Percocet 5-325 Mg) 1 tab Q3H PRN PO PAIN SCALE 3 TO 5 Last administered on 11/25/16 16:04; Start 11/20/16 at 16:15 Ketorolac Tromethamine (Toradol Inj) 15 mg Q6H IV PUSH Last administered on 11:35; Start 11/20/16 at 18:00; Stop 11/21/16 at 12:01; Status DC Fentanyl Citrate (fentaNYL INJ) 250 mcg STK-MED ONCE .ROUTE ; Start 11/20/16 at 16:53; Stop 11/20/16 at 16:54; Status DC Labetalol HCl (Trandate Inj) 100 mg STK-MED ONCE .ROUTE Last administered on 17:53; Start 11/20/16 at 17:28; Stop 11/20/16 at 17:29; Status DC Metoprolol Tartrate (Lopressor Inj) 2.5 mg ONCE ONCE IV PUSH ; Start 11/20/16 at 18:00; Stop 11/20/16 at 18:01; Status DC Diltiazem HCl (Cardizem Inj) 25 mg STK-MED ONCE .ROUTE Last administered on 06:40; Start 11/21/16 at 06:31; Stop 11/21/16 at 06:32; Status DC Potassium Chloride (KCl) 30 meq ONCE ONCE PO Last administered on 11/21/16 08 :35; Start 11/21/16 at 07:30; Stop 11/21/16 at 07:31; Status DC Furosemide (Lasix Inj) 20 mg ONCE ONCE IV PUSH Last administered on 11/21/16 08:35; Start 11/21/16 at 07:30; Stop 11/21/16 at 07:31; Status DC Propofol (Diprivan 200 Mg/20 ml Inj) 200 mg STK-MED ONCE IV ; Start 11/20/16 at 09:10; Stop 11/21/16 at 09:11; Status DC Nitroglycerin/ Dextrose (Nitroglycerin-Dextrose Inj) 50 mg STK-MED ONCE IV ; Start 11/20/16 at 09:10; Stop 11/21/16 at 09:11; Status DC Phenylephrine HCl (Neosynephrine/ NS 1000 Mcg/10ml Syr) 2,000 mcg STK-MED ONCE IV ; Start 11/20/16 at 09:10; Stop 11/21/16 at 09:11; Status DC Iohexol (Omnipaque 350 Inj) 94 ml STK-MED ONCE IV Last administered on 09:42; Start 11/21/16 at 09:42; Stop 11/22/16 at 09:10; Status DC Potassium Chloride 20 meq 20 meq ONCE ONCE PO Last administered on 11/21/16 11:39; Start 11/21/16 at 12:00; Stop 11/22/16 at 09:10; Status DC Amiodarone HCl 150 mg/Dextrose 100 ml @ 600 mls/hr NOW ONCE IV Last administered on 11/21/16 11:35; Start 11/21/16 at 10:45; Stop 11/21/16 at 10:54 ; Status DC Amiodarone HCl/ Dextrose (Cordarone Inj/ D5W (Baird) Inj) 259 ml @ 0 mls/hr CONTINUOUS IV Last administered on 11/21/16 20:43; Start 11/21/16 at 10:45; Stop 11/24/16 at 09:38; Status DC Zolpidem Tartrate (Ambien) 5 mg HS PRN PO SLEEP; Start 11/21/16 at 11:00 Nicardipine HCl (Cardene Inj) 25 mg STK-MED ONCE .ROUTE ; Start 11/21/16 at 13: 56; Stop 11/22/16 at 09:10; Status DC Diltiazem HCl 20 mg 20 mg NOW ONCE IV ; Start 11/21/16 at 14:45; Stop 11/21/16 at 14:46; Status DC Diltiazem HCl/ Sodium Chloride (Cardizem Inj/NS Inj) 125 ml @ 0 mls/hr TITRATE IV Last administered on 11/23/16 03:40; Start 11/21/16 at 14:45; Stop 11/23/16 at 08:16; Status DC Diltiazem HCl 25 mg 25 mg STK-MED ONCE .ROUTE Last administered on 11/21/16 15 :03; Start 11/21/16 at 14:33; Stop 11/21/16 at 14:34; Status DC Amiodarone HCl 150 mg/Dextrose 100 ml @ 600 mls/hr ONCE ONCE IV Last administered on 11/21/16 16:00; Start 11/21/16 at 16:00; Stop 11/21/16 at 16:09 ; Status DC Magnesium Sulfate/ Dextrose (Magnesium Sulfate 1 Gm Premix) 100 ml @ 100 mls/ hr ONCE ONCE IV Last administered on 11/21/16 17:00; Start 11/21/16 at 17:00 ; Stop 11/21/16 at 17:59; Status DC Furosemide (Lasix Inj) 20 mg BID@09,18 IV PUSH Last administered on 11/25/16 18 :00; Start 11/22/16 at 09:00 Aspirin (Ecotrin Ec) 81 mg DAILY PO Last administered on 11/25/16 07:58; Start 11/22/16 at 10:00 Diltiazem HCl (Cardizem Cd) 240 mg DAILY PO Last administered on 11/23/16 09:00 ; Start 11/23/16 at 09:00; Stop 11/23/16 at 18:45; Status DC Patient Own Medication PT OWN MED: MOVAN... HS PO Last administered on 21:00; Start 11/23/16 at 21:00 Patient Own Medication PT OWN MED: RESTA... BID EACH EYE Last administered on 21:00; Start 11/23/16 at 21:00 Diltiazem HCl/ Sodium Chloride (Cardizem Inj/NS Inj) 125 ml @ 0 mls/hr TITRATE IV Last administered on 11/24/16 04:40; Start 11/23/16 at 19:00; Stop 11/24/16 at 09:30; Status DC Diltiazem HCl 60 mg 60 mg Q6HR PO Last administered on 11/26/16 06:14; Start at 00:00 Amiodarone HCl 150 mg/Dextrose 100 ml @ 600 mls/hr ONCE ONCE IV Last administered on 11/24/16 11:01; Start 11/24/16 at 09:30; Stop 11/24/16 at 09:39; Status DC Amiodarone HCl/ Dextrose (Cordarone Inj/ D5W (Baird) Inj) 250 ml @ 0 mls/hr CONTINUOUS IV Last administered on 11/25/16 05:25; Start 11/24/16 at 09:30; Stop 11/25/16 at 13:30; Status DC Diltiazem HCl (Cardizem Inj) 15 mg ONCE ONCE IV Last administered on 11/25/16 01:12; Start 11/25/16 at 01:00; Stop 11/25/16 at 01:02; Status DC Diltiazem HCl (Cardizem) 60 mg NOW@0330 PO Last administered on 11/25/16 03:37 ; Start 11/25/16 at 03:30; Stop 11/25/16 at 05:59; Status DC Amiodarone HCl (Cordarone) 400 mg TID PO Last administered on 11/25/16 18:00; Start 11/25/16 at 18:00 Diphenhydramine HCl (Benadryl) 25 mg Q6H PRN PO ITCHING Last administered on 03:34; Start 11/25/16 at 19:15 A/P Assessment and Plan A/P Large pericardial effusion with tamponade physiology s/p emergent pericardiocentesis and pericardial drain placement on 11/20continue post operative care, pain control, physical therapy. Patient does have a history of morphine pump in place a spinal cord stimulator. Current cytology negative for any malignant cells, cultures were negative. Bilateral Pleural effusions s/p thoracentesis- continue with diuretics- pulmonary following. A. fib/ flutter with RVR continue with Cardizem - amiodarone was switched to po - continue aspirin- cardiology following. swelling and tenderness along with some erythema over the right arm; venous doppler with superficial phlebitis; continue with warm compress. rash around the site of previous drain; benadryl as needed- Ascitescontinue with diuretics HypothyroidismSynthroid History of asthma, chroniccontinue with bronchodilators as needed. History of bipolar disorderresumed home medication Depakote and Effexor History of chronic pain status post spinal cord stimulator placement as well as morphine pump. Prophylaxis: PPI/SCDs. No heparin or Lovenox till cleared by Dr. Smith. Discharge Planning possible discharge early this week when ok with consultants. Francisco Gramajo MD Nov 26, 2016 08:47
[2016-11-26] MEDS: MULTIVITAMIN-OPHTHALMIC 1 TAB PO SCH ×2 (08:52→20:45)
[2016-11-26] MEDS: GABAPENTIN 300 MG CAP PO SCH ×2 (08:53→20:46)
[2016-11-26] MEDS: ASPIRIN EC 81 MG TABEC PO SCH (08:53)
[2016-11-26] MEDS: VENLAFAXINE HCL XR 75 MG CAP PO SCH (08:53)
[2016-11-26] MEDS: DOCUSATE SODIUM 100 MG CAP PO SCH ×2 (08:53→20:46)
[2016-11-26] MEDS: ESTRADIOL 1 MG TAB PO SCH (08:53)
[2016-11-26] MEDS: PSYLLIUM FIBER SF/GF 6 GM POWD PKT PO SCH ×2 (08:54→20:44)
[2016-11-26] MEDS: SODIUM CHLORIDE 0.9% FLUSH 5 ML FLUSH IV FLUSH SCH ×2 (08:54→20:43)
[2016-11-26] MEDS: AMIODARONE 200 MG TAB PO SCH ×3 (08:54→16:47)
[2016-11-26] MEDS: RESTASIS EACH EYE SCH ×3 (08:54→20:47)
[2016-11-26] MEDS: clonazePAM 0.5 MG TAB PO SCH ×2 (08:54→20:46)
[2016-11-26] MEDS: FUROSEMIDE 20 MG/2 ML VIAL IV PUSH SCH ×2 (08:54→16:47)
--- NOTE | 2016-11-26 10:56 | PD.CAR.PN ---
CVT Progress Note CVT: POD #: 6 Subjective/Hospital Course: 62/ female recent treatment for viral syndrome URI, seen and eval and found to have left pleural effusion and moderate sized pericardial effusion / no tamponade noted / treated and discharged home brought in via [facility] 11/20 resp distress, tachycardia / emergent pericardicentesis was done at bedside and 130cc bloody fluid removed, post ECHO done, with some cardiac compromise , pt then went to OR , underwent pericardial window and removed 400cc bloody fluid ( cultures to date neg, path pending ) PMH: chronic back pain, prior back surgery, spinal stimulator, pain pump, Bipolar dz , hypothyroidism 11/21 pericardial cath drained 80 cc/ bloody fluid will leave drain in place today / eval for removal in am new onset afib RVR this am , treated with cardizem , amiodarone , then cardizem gtt 11/22 pt drained 7cc/ serous drainage from chest tube, will eval for removal later today on 5 liter nasal cannula continue pulm toileting on cardizem and amiodarone gtt / will continue as per Dr Villafuerte discretion will transfer to [facility] if ok with CCM 11/23 pericardial tube removed without difficulty incision lower sternum intact and well approximated s/p left thoracentesis yesterday / drained 750cc fluid culture/ cytology pending 11/26/16 Called to see patient for new erythema and pruritus in the incisional area. Objective: Vital Signs Date Time Temp Pulse Resp B/P Pulse Ox O2 Delivery O2 Flow Rate FiO2 11/26/16 07:00 95 11/26/16 07:00 99.4 92 17 110/69 93 11/26/16 06:15 99.7 11/26/16 05:00 96 11/26/16 04:11 100 11/26/16 04:00 104 11/26/16 03:17 99.2 98 18 112/66 98 11/26/16 03:00 108 11/26/16 02:00 96 11/26/16 01:00 108 11/26/16 00:46 99.2 94 14 102/62 94 11/26/16 00:00 95 11/25/16 23:00 95 11/25/16 22:00 94 11/25/16 21:00 102 11/25/16 20:00 99 14 140/62 99 11/25/16 20:00 108 11/25/16 19:00 98 11/25/16 17:35 95 21 11/25/16 15:00 88 11/25/16 15:00 90 16 112/88 95 11/25/16 11:00 97.9 94 18 110/85 96 11/25/16 11:00 94 Result Diagram: 11/22/1643911/22/16439 Incision: raised, erythematous area surrounding incision site. The wound itself is dry and intact. Plan: She appears to have a contact dermatitis repated to dressing or steristrips? I removed all the steristrips and the wound should be left open to air. Recommend BID shower, pat dry and apply kenalog cream. She may also benefit from a medrol dose pack. (1) Paroxysmal atrial fibrillation Plan: Remains in atrial fib/flutter, uncontrolled rates last night, now normal. Rec stop IV Cardizem, continue oral Cardizem. Resume IV Amiodarone. Thromboembolic risk overall low. Rec daily aspirin. (2) Pericardial effusion Plan: Stable s/p pericardial window placement. Stable. No definite tamponade physiology seen on admission echo. Fluid cytology pending. Anisha Smith MD Nov 26, 2016 10:56
[2016-11-26] MEDS ORDERED: methylPREDNISolone SOD SUCC 125 MG/2 ML VIAL IV PUSH ONE (11:00)
--- NOTE | 2016-11-26 13:05 | PD.CARD.PN ---
Subjective Subjective Remarks No cardiovascular complaints Objective Medications Current Medications Medications (Trade) Dose Ordered Sig/Narda Route Start Time Stop Time Status Last Admin ([place] 5-325 Mg) 1 tab Q4H PRN PO 11/20/16 13:15 11/25/16 21:59 (Dilaudid Pf Inj) 1 mg Q4H PRN IV 11/20/16 13:15 11/21/16 19:42 (KlonoPIN) 0.5 mg BID PO 11/20/16 21:00 11/26/16 08:54 (Depakote Dr) 750 mg HS PO 11/20/16 21:00 11/25/16 21:00 (Colace) 100 mg BID PO 11/20/16 21:00 11/26/16 08:53 (Estradiol) 2 mg DAILY PO 11/21/16 09:00 11/26/16 08:53 (Neurontin) 300 mg BID PO 11/20/16 21:00 11/26/16 08:53 (Synthroid) 75 mcg DAILY@06 PO 11/21/16 06:00 11/26/16 06:14 (Miralax) 17 gm DAILY PRN PO 11/20/16 13:15 (SEROquel) 50 mg HS PO 11/20/16 21:00 11/25/16 21:00 (Effexor Xr) 150 mg DAILY PO 11/21/16 09:00 11/26/16 08:53 (Melatonin) 2.5 mg HS PO 11/20/16 21:00 11/25/16 21:00 (Ocuvite) 1 tab BID PO 11/20/16 21:00 11/26/16 08:52 (Metamucil Smooth Texture Sf/ Gf Pkt) 1 pkt BID PO 11/20/16 21:00 11/26/16 08:54 (Pill Splitter) 1 ea UNSCH PRN OTHER 11/20/16 14:00 (NS Flush) 2 ml BID IV FLUSH 11/20/16 21:00 11/26/16 08:54 (NS Flush) 2 ml UNSCH PRN IV FLUSH 11/20/16 16:15 (Protonix) 40 mg HS PO 11/20/16 21:00 11/25/16 21:00 (Zofran Inj) 4 mg Q6H PRN IV PUSH 11/20/16 16:15 11/21/16 20:06 (Milk Of Magnesia Liq) 30 ml DAILY PRN PO 11/20/16 16:15 (Tylenol) 650 mg Q4H PRN PO 11/20/16 16:15 11/24/16 23:44 (Percocet 5-325 Mg) 1 tab Q3H PRN PO 11/20/16 16:15 11/25/16 16:04 (Ambien) 5 mg HS PRN PO 11/21/16 11:00 (Lasix Inj) 20 mg BID@,18 IV PUSH 11/22/16 09:00 11/26/16 08:54 (Ecotrin Ec) 81 mg DAILY PO 11/22/16 10:00 11/26/16 08:53 Patient Own Medication PT OWN MED: MOVAN... HS PO 11/23/16 21:00 11/25/16 21:00 Patient Own Medication PT OWN MED: RESTA... BID EACH EYE 11/23/16 21:00 11/26/16 09:00 (Cardizem) 60 mg Q6HR PO 11/24/16 00:00 11/26/16 12:37 (Cordarone) 400 mg TID PO 11/25/16 18:00 11/26/16 12:37 (Benadryl) 25 mg Q6H PRN PO 11/25/16 19:15 11/26/16 03:34 (Robitussin Liq) 200 mg Q6HR PRN PO 11/26/16 08:45 (Aristocort 0.1% Oint) 1 applic Q6HR TOPICAL 11/26/16 12:00 Vital Signs / I&O Vital Signs Date Time Temp Pulse Resp B/P Pulse Ox O2 Delivery O2 Flow Rate FiO2 11/26/16 11:00 98.6 99 17 123/74 96 11/26/16 07:00 95 11/26/16 07:00 99.4 92 17 110/69 93 11/26/16 06:15 99.7 11/26/16 05:00 96 11/26/16 04:11 100 11/26/16 04:00 104 11/26/16 03:17 99.2 98 18 112/66 98 11/26/16 03:00 108 11/26/16 02:00 96 11/26/16 01:00 108 11/26/16 00:46 99.2 94 14 102/62 94 11/26/16 00:00 95 11/25/16 23:00 95 11/25/16 22:00 94 11/25/16 21:00 102 11/25/16 20:00 99 14 140/62 99 11/25/16 20:00 108 11/25/16 19:00 98 11/25/16 17:35 95 21 11/25/16 15:00 88 11/25/16 15:00 90 16 112/88 95 I/O 11/25/16 11/25/16 11/25/16 11/26/16 11/26/16 11/26/16 07:00 15:00 23:00 07:00 15:00 23:00 Intake Total 875 ml 497 ml 240 ml Output Total 1210 ml 700 ml Balance 875 ml -713 ml -460 ml Intake Oral 600 ml 360 ml 240 ml IV Total 275 ml 137 ml 0 ml Output Urine Total 1210 ml 700 ml # Voids 5 # Bowel Movements 0 0 0 Physical Exam HEENT/neck: -JVD Lungs: CTA B/L CV: RRR, HS distant Ext: -CCE Neuro: Grossly intact Laboratory Laboratory Tests Test 11/22/16 11/22/16 11/22/16 04:40 09:45 13:00 White Blood Count 15.6 TH/MM3 Red Blood Count 2.94 MIL/MM3 Hemoglobin 9.4 GM/DL Hematocrit 28.7 % Mean Corpuscular Volume 97.8 FL Mean Corpuscular Hemoglobin 32.0 PG Mean Corpuscular Hemoglobin 32.7 % Concent Red Cell Distribution Width 13.4 % Platelet Count 505 TH/MM3 Mean Platelet Volume 6.9 FL Neutrophils (%) (Auto) 75.6 % Lymphocytes (%) (Auto) 13.4 % Monocytes (%) (Auto) 7.4 % Eosinophils (%) (Auto) 3.3 % Basophils (%) (Auto) 0.3 % Neutrophils # (Auto) 11.8 TH/MM3 Lymphocytes # (Auto) 2.1 TH/MM3 Monocytes # (Auto) 1.1 TH/MM3 Eosinophils # (Auto) 0.5 TH/MM3 Basophils # (Auto) 0.0 TH/MM3 CBC Comment DIFF FINAL Differential Comment Sodium Level 135 MEQ/L Potassium Level 4.4 MEQ/L Chloride Level 98 MEQ/L Carbon Dioxide Level 31.6 MEQ/L Anion Gap 5 MEQ/L Blood Urea Nitrogen 9 MG/DL Creatinine 0.50 MG/DL Estimat Glomerular Filtration 122 ML/MIN Rate Random Glucose 95 MG/DL Calcium Level 7.7 MG/DL Urine Color LIGHT-YELLOW Urine Turbidity CLEAR Urine pH 6.5 Urine Specific [place] 1.005 Urine Protein NEG mg/dL Urine Glucose (UA) NEG mg/dL Urine Ketones NEG mg/dL Urine Occult Blood NEG Urine Nitrite NEG Urine Bilirubin NEG Urine Urobilinogen LESS THAN 2.0 MG/DL Urine Leukocyte Esterase NEG Urine RBC LESS THAN 1 /hpf Urine WBC 1 /hpf Urine Squamous Epithelial 3 /hpf Cells Microscopic Urinalysis Comment CULT NOT INDICATED Pleural Fluid pH 8.0 Pleural Fluid WBC 443 /MM3 Pleural Fluid RBC 75 /MM3 Pleural Fluid Neutrophils 39 % Pleural Fluid Lymphocytes 29 % Pleural Fluid Monocytes 10 % Pleural Fluid Eosinophils 2 % Pleural Fluid Basophils 1 % Pleural Fluid Histiocytes 4 % Pleural Fluid Mesothelial 15 % Cells Pleural Fluid Total Protein 2.7 GM/DL Pleural Fluid LDH 97 U/L Pleural Fluid Glucose 122 MG/DL Pleural Fluid Amylase 25 U/L Imaging Last Impressions Upper Extremity Ultrasound 11/25/16 0000 Signed Impressions: Service Date/Time: Friday, November 25, 2016 12:54 - CONCLUSION: 1. There is occlusive thrombus within the right mid cephalic vein. 2. Remaining veins of the right upper extremity are patent. Medardo Zamudio MD Chest X-Ray 11/23/16 0500 Signed Impressions: Service Date/Time: November 04:23 - CONCLUSION: 1. Stable basilar airspace disease and pleural effusions compared with November 22. German Joseph MD Chest Ultrasound 11/21/16 0000 Signed Impressions: Service Date/Time: Monday, November 21, 2016 18:35 - CONCLUSION: Moderate-sized pleural effusion marked for thoracentesis. Bo Marmolejo MD Abdomen/Pelvis CT 11/20/16 0000 Signed Impressions: Service Date/Time: Monday, November 21, 2016 09:31 - CONCLUSION: 1. Pericardial drain has been placed with good location. I do not see any significant re-accumulation of the pericardial effusion. There are some tiny locules of air underneath the xiphoid process likely related to the catheter placement. 2. Large bilateral pleural effusions with significant passive atelectasis both lung bases. 3. Ascites within the pelvis. Please see above. Jackson Thornton MD Assessment and Plan Problem List: (1) Paroxysmal atrial fibrillation (2) Pericardial effusion Assessment and Plan 1) AF with conversion to NSR. Now on high dose amiodarone, cardizem and ASA. 2) Amiodarone will need to be reduced to 200mg after 10gm loading dose achieved and/or prior to discharge. 3) Pericardial effusion- stable s/p pericardial window. Cytology negative for malignant cells. Mangement per CVT 4) Contact dermatitis around incision- Rx/eval per CVT Dr. Villafuerte will be back Sunday to resume further cardiac management. Discussed Condition With Vanita Fontanez Nov 26, 2016 13:05
[2016-11-26] MEDS: TRIAMCINOLONE ACETONIDE 0.1% OINT 15 GM TUBE TOPICAL SCH ×2 (13:47→16:47)
[2016-11-26] MEDS: MOVANTIK 25 MG PO SCH (20:42)
[2016-11-26] MEDS: MELATONIN 5 MG TAB PO SCH (20:45)
[2016-11-26] MEDS: QUEtiapine FUMARATE 25 MG TAB PO SCH (20:46)
[2016-11-26] MEDS: DIVALPROEX SODIUM DELAYED RELEASE 250 MG TAB PO SCH (20:46)
[2016-11-26] MEDS: PANTOPRAZOLE SOD 40 MG DELAYED RELEASE TAB PO SCH (20:46)
[2016-11-26] MEDS: guaiFENesin SOLUTION 200 MG/10 ML CUP PO PRN (23:13)
[2016-11-27] VITALS (15 sets, daily range): BP systolic 102–118; BP diastolic 60–79; PULSE 78–114; RESP 14–18; TEMP 97.5–97.7; O2SAT 93–98
[2016-11-27] MEDS: TRIAMCINOLONE ACETONIDE 0.1% OINT 15 GM TUBE TOPICAL SCH ×3 (01:05→11:53)
[2016-11-27] MEDS: DILTIAZEM HCL 60 MG TAB PO SCH ×3 (01:05→11:53)
[2016-11-27] MEDS: LEVOTHYROXINE SODIUM 75 MCG TAB PO SCH (06:20)
[2016-11-27] MEDS: AMIODARONE 200 MG TAB PO SCH ×2 (08:47→12:41)
[2016-11-27] MEDS: ASPIRIN EC 81 MG TABEC PO SCH (08:47)
[2016-11-27] MEDS: FUROSEMIDE 20 MG/2 ML VIAL IV PUSH SCH (08:47)
[2016-11-27] MEDS: VENLAFAXINE HCL XR 75 MG CAP PO SCH (08:48)
[2016-11-27] MEDS: clonazePAM 0.5 MG TAB PO SCH (08:48)
[2016-11-27] MEDS: ESTRADIOL 1 MG TAB PO SCH (08:49)
[2016-11-27] MEDS: MULTIVITAMIN-OPHTHALMIC 1 TAB PO SCH (08:49)
[2016-11-27] MEDS: GABAPENTIN 300 MG CAP PO SCH (08:49)
[2016-11-27] MEDS: SODIUM CHLORIDE 0.9% FLUSH 5 ML FLUSH IV FLUSH SCH (08:49)
[2016-11-27] MEDS: DOCUSATE SODIUM 100 MG CAP PO SCH (08:49)
[2016-11-27] MEDS: PSYLLIUM FIBER SF/GF 6 GM POWD PKT PO SCH (08:49)
--- NOTE | 2016-11-27 09:21 | RADRPT ---
EXAM DATE/TIME: 11/27/2016 09:11 [facility] COMPARISON: CHEST SINGLE AP, November 23, 2016, 4:23. CHEST PA & LAT, November 16, 2016, 14:30. INDICATIONS: Shortness of breath. MEDICAL HISTORY: Hypertension. Cardiovascular disease. SURGICAL HISTORY: None. ENCOUNTER: Initial ACUITY: 1 week PAIN SCORE: 2/10 LOCATION: Bilateral chest FINDINGS: There are small bilateral pleural effusions improved from the comparison study. Heart and pulmonary vascularity are normal. Portion of bony skeleton visualized unremarkable. Spinal stimulator is note d. CONCLUSION: 1. Improvement with better aeration. 2. Small bilateral pleural effusions, improved in the interval. Mannie Agrawal MD FACR on November 27, 2016 at 9:17 Board Certified Radiologist. This report was verified electronically.
[2016-11-27] MEDS: RESTASIS EACH EYE SCH (09:53)
[2016-11-27] MEDS: guaiFENesin SOLUTION 200 MG/10 ML CUP PO PRN (09:53)
--- NOTE | 2016-11-27 10:01 | HHI.PR ---
Subjective Remarks in no acute distress. has occasional cough. no fever. Objective Vitals Vital Signs Date Time Temp Pulse Resp B/P Pulse Ox O2 Delivery O2 Flow Rate FiO2 11/27/16 07:00 108 11/27/16 07:00 97.7 110 18 111/75 93 11/27/16 05:00 106 11/27/16 04:00 99 11/27/16 04:00 97.5 97 14 118/79 98 11/27/16 03:00 96 11/27/16 02:00 96 11/27/16 01:00 102 11/27/16 00:00 109 11/26/16 23:14 97.7 112 16 104/60 95 11/26/16 23:00 112 11/26/16 22:00 110 11/26/16 21:00 78 11/26/16 20:00 77 11/26/16 20:00 97.6 78 14 115/62 94 11/26/16 19:55 79 11/26/16 17:26 93 Nasal Cannula 2.00 11/26/16 15:00 98.8 87 18 121/74 93 11/26/16 15:00 95 11/26/16 12:00 92 11/26/16 11:00 98.6 99 17 123/74 96 11/26/16 11:00 92 11/26/16 10:00 94 I/O 11/26/16 11/26/16 11/26/16 11/27/16 11/27/16 11/27/16 07:00 15:00 23:00 07:00 15:00 23:00 Intake Total 240 ml 710 ml 480 ml Output Total 700 ml 1350 ml 1600 ml Balance -460 ml -640 ml -1120 ml Intake Oral 240 ml 710 ml 480 ml IV Total 0 ml 0 ml Output Urine Total 700 ml 1350 ml 1600 ml # Bowel Movements 0 1 2 Imaging Last Impressions Upper Extremity Ultrasound 11/25/16 0000 Signed Impressions: Service Date/Time: Friday, November 25, 2016 12:54 - CONCLUSION: 1. There is occlusive thrombus within the right mid cephalic vein. 2. Remaining veins of the right upper extremity are patent. Medardo Zamudio MD Chest X-Ray 11/23/16 0500 Signed Impressions: Service Date/Time: November 04:23 - CONCLUSION: 1. Stable basilar airspace disease and pleural effusions compared with November 22. German Joseph MD Chest Ultrasound 11/21/16 0000 Signed Impressions: Service Date/Time: Monday, November 21, 2016 18:35 - CONCLUSION: Moderate-sized pleural effusion marked for thoracentesis. Bo Marmolejo MD Abdomen/Pelvis CT 11/20/16 0000 Signed Impressions: Service Date/Time: Monday, November 21, 2016 09:31 - CONCLUSION: 1. Pericardial drain has been placed with good location. I do not see any significant re-accumulation of the pericardial effusion. There are some tiny locules of air underneath the xiphoid process likely related to the catheter placement. 2. Large bilateral pleural effusions with significant passive atelectasis both lung bases. 3. Ascites within the pelvis. Please see above. Jackson Thornton MD Objective Remarks GENERAL: This is a well-nourished, well-developed patient, in no apparent distress. CARDIOVASCULAR: Regular rate and regular rhythm without murmurs, gallops, or rubs. RESPIRATORY: Clear to auscultation. Breath sounds equal bilaterally. No wheezes , rales, or rhonchi. GASTROINTESTINAL: Abdomen soft, non-tender, nondistended. Normal, active bowel sounds MUSCULOSKELETAL: mild swelling and tenderness over the right arm NEURO: Alert & Oriented x4 to person, place, time, situation. Moves all ext x4 skin; erythema noted over the right arm Procedures pericardial window thoracentesis Medications and IVs Current Medications IV Flush 2 ml 2 ml UNSCH PRN IVF FLUSH AFTER USING IV ACCESS Last administered on 11/20/16 11:45; Start 11/20/16 at 10:15; Stop 11/20/16 at 13:08; Status DC Sodium Chloride (NS 1000 ml Inj) 1,000 ml @ 999 mls/hr BOLUS ONCE IV Last administered on 11/20/16 11:45; Start 11/20/16 at 10:15; Stop 11/20/16 at 11:15 ; Status DC Lidocaine/ Epinephrine 20 ml 20 ml ONCE ONCE INFIL ; Start 11/20/16 at 10:30; Stop 11/20/16 at 10:31; Status DC Sodium Chloride (NS 1000 ml Inj) 1,000 ml @ 999 mls/hr BOLUS ONCE IV Last administered on 11/20/16 13:34; Start 11/20/16 at 11:15; Stop 11/20/16 at 12:15 ; Status DC IV Flush (NS Flush) 2 ml UNSCH PRN IVF FLUSH AFTER USING IV ACCESS; Start 11/20 at 13:15; Stop 11/20/16 at 16:24; Status DC IV Flush (NS Flush) 2 ml BID IVF ; Start 11/20/16 at 21:00; Stop 11/20/16 at 21: 00; Status DC Acetaminophen (Tylenol) 650 mg Q6H PRN PO PAIN 1-10 AND/OR FEVER >101F; Start 11/20/16 at 13:15; Stop 11/20/16 at 16:23; Status DC Acetaminophen/ Hydrocodone Bitart ([place] 5-325 Mg) 1 tab Q4H PRN PO PAIN SCALE 1 TO 5 Last administered on 11/25/16 21:59; Start 11/20/16 at 13:15 Morphine Sulfate (Morphine Inj) 2 mg Q2H PRN IV PAIN SCALE 6 TO 10; Start 11/20 at 13:15; Stop 11/20/16 at 13:17; Status DC Hydromorphone HCl (Dilaudid Pf Inj) 1 mg Q4H PRN IV PAIN SCALE 6 TO 10 Last administered on 11/21/16 19:42; Start 11/20/16 at 13:15 Albuterol/ Ipratropium (Duoneb Neb) 1 ampule Q6HR NEB NEB ; Start 11/20/16 at 16:00; Stop 11/20/16 at 16:17; Status DC Albuterol/ Ipratropium (Duoneb Neb) 1 ampule Q4HR NEB PRN INH SHORTNESS OF BREATH; Start 11/20/16 at 13:15 Chlorhexidine Gluconate (Peridex 0.12% Liq) 15 ml BID@08,20 MT ; Start 11/20/16 at 20:00; Stop 11/22/16 at 09:10; Status DC Miscellaneous Information 1 Q361D XX ; Start 11/20/16 at 13:15; Stop 11/22/16 at 09:10; Status DC Chlorhexidine Gluconate (Chlorhexidine 2% Cloth) 3 pack Taper DAILY@04 TOP Last administered on 11/21/16 03:27; Start 11/21/16 at 04:00; Stop 11/22/16 at 09:10; Status DC Chlorhexidine Gluconate (Chlorhexidine 2% Cloth) 3 pack UNSCH PRN TOP HYGIENIC CARE; Start 11/20/16 at 13:15; Stop 11/22/16 at 09:10; Status DC Clonazepam (KlonoPIN) 0.5 mg BID PO Last administered on 11/27/16 08:48; Start 11/20/16 at 21:00 Divalproex Sodium (Depakote Dr) 750 mg HS PO Last administered on 11/26/16 20: 46; Start 11/20/16 at 21:00 Docusate Sodium (Colace) 100 mg BID PO Last administered on 11/27/16 08:49; Start 11/20/16 at 21:00 Estradiol (Estradiol) 2 mg DAILY PO Last administered on 11/27/16 08:49; Start 11/21/16 at 09:00 Gabapentin (Neurontin) 300 mg BID PO Last administered on 11/27/16 08:49; Start 11/20/16 at 21:00 Levothyroxine Sodium (Synthroid) 75 mcg DAILY@06 PO Last administered on 06:20; Start 11/21/16 at 06:00 Polyethylene Glycol (Miralax) 17 gm DAILY PRN PO CONSTIPATION; Start 11/20/16 at 13:15 Quetiapine Fumarate (SEROquel) 50 mg HS PO Last administered on 11/26/16 20:46 ; Start 11/20/16 at 21:00 Venlafaxine HCl (Effexor Xr) 150 mg DAILY PO Last administered on 11/27/16 08: 48; Start 11/21/16 at 09:00 Patient Own Medication PT OWN MED: 1 DROP E... BID EACH EYE ; Start 11/20/16 at 21:00; Status Cancel Melatonin (Melatonin) 2.5 mg HS PO Last administered on 11/26/16 20:45; Start 11/20/16 at 21:00 Vit C/Vit E/Zinc/ Copper/Lutein (Ocuvite) 1 tab BID PO Last administered on 11/27 08:49; Start 11/20/16 at 21:00 Patient Own Medication PT OWN MED: MOVAN... HS PO ; Start 11/20/16 at 21:00; Status Cancel Psyllium Hydrophilic Mucilloid 1 pkt 1 pkt BID PO Last administered on 08:49; Start 11/20/16 at 21:00 Sodium Chloride (NS 1000 ml Inj) 1,000 ml @ 42 mls/hr [id number] IV Last administered on 11/21/16 11:37; Start 11/20/16 at 13:45; Stop 11/22/16 at 07:43 ; Status DC Midazolam HCl (Versed Inj) 2 mg STK-MED ONCE .ROUTE ; Start 11/20/16 at 13:39; Stop 11/20/16 at 13:40; Status DC Ketamine HCl (Ketalar Inj) 500 mg STK-MED ONCE .ROUTE ; Start 11/20/16 at 13:39 ; Stop 11/20/16 at 13:40; Status DC Miscellaneous (Pill Splitter) 1 ea UNSCH PRN OTHER SEE LABEL COMMENTS; Start at 14:00 Vancomycin HCl 2000 mg 2,000 mg STK-MED ONCE .ROUTE Last administered on 15:38; Start 11/20/16 at 14:01; Stop 11/20/16 at 14:02; Status DC Sodium Chloride (NS 250 ml Inj) 250 ml @ As Directed STK-MED ONCE .ROUTE ; Start 11/20/16 at 14:01; Stop 11/20/16 at 14:02; Status DC Heparin Sodium (Porcine) (Heparin Inj) 40,000 units STK-MED ONCE .ROUTE ; Start 11/20/16 at 14:01; Stop 11/20/16 at 14:02; Status DC Bupivacaine HCl (Marcaine Pf 0.5% Inj) 30 ml STK-MED ONCE .ROUTE Last administered on 11/20/16 16:57; Start 11/20/16 at 14:30; Stop 11/20/16 at 14:31 ; Status DC Sugammadex Sodium (Bridion Inj) 200 mg STK-MED ONCE IV PUSH ; Start 11/20/16 at 14:45; Stop 11/20/16 at 14:46; Status DC IV Flush (NS Flush) 2 ml BID IV FLUSH Last administered on 11/27/16 08:49; Start 11/20/16 at 21:00 IV Flush (NS Flush) 2 ml UNSCH PRN IV FLUSH FLUSH AFTER USING IV ACCESS; Start 11/20/16 at 16:15 Miscellaneous Information STAT ONCE OTHER ; Start 11/20/16 at 16:15; Stop at 17:23; Status DC Vancomycin HCl/ Sodium Chloride (Vancomycin Inj/ NS 250 ml Inj) 250 ml @ 250 mls/hr Q12H IV Last administered on 11/21/16 15:11; Start 11/21/16 at 03:00; Stop 11/21/16 at 15:59; Status DC Pantoprazole Sodium (Protonix) 40 mg HS PO Last administered on 11/26/16 20:46 ; Start 11/20/16 at 21:00 Ondansetron HCl (Zofran Inj) 4 mg Q6H PRN IV PUSH NAUSEA OR VOMITING Last administered on 11/21/16 20:06; Start 11/20/16 at 16:15 Magnesium Hydroxide (Milk Of Magnesia Liq) 30 ml DAILY PRN PO CONSTIPATION; Start 11/20/16 at 16:15 Acetaminophen (Tylenol) 650 mg Q4H PRN PO TEMPERATURE > 101 F Last administered on 11/24/16 23:44; Start 11/20/16 at 16:15 Insulin Aspart (NovoLOG SUPPLEMENTAL SCALE) Q6HR SQ ; Start 11/20/16 at 18:00; Stop 11/24/16 at 15:26; Status DC Miscellaneous Information 1 ONCE ONCE OTHER ; Start 11/20/16 at 16:15; Stop at 16:26; Status DC Dextrose (D50w (Vial) Inj) 25 ml UNSCH PRN IV PUSH HYPOGLYCEMIA-SEE COMMENTS; Start 11/20/16 at 16:15; Stop 11/24/16 at 15:26; Status DC Glucagon (Glucagon Inj) 1 mg UNSCH PRN IV HYPOGLYCEMIA-SEE COMMENTS; Start at 16:15; Stop 11/24/16 at 15:26; Status DC Oxycodone/ Acetaminophen (Percocet 5-325 Mg) 1 tab Q3H PRN PO PAIN SCALE 3 TO 5 Last administered on 11/25/16 16:04; Start 11/20/16 at 16:15 Ketorolac Tromethamine (Toradol Inj) 15 mg Q6H IV PUSH Last administered on 11:35; Start 11/20/16 at 18:00; Stop 11/21/16 at 12:01; Status DC Fentanyl Citrate (fentaNYL INJ) 250 mcg STK-MED ONCE .ROUTE ; Start 11/20/16 at 16:53; Stop 11/20/16 at 16:54; Status DC Labetalol HCl (Trandate Inj) 100 mg STK-MED ONCE .ROUTE Last administered on 17:53; Start 11/20/16 at 17:28; Stop 11/20/16 at 17:29; Status DC Metoprolol Tartrate (Lopressor Inj) 2.5 mg ONCE ONCE IV PUSH ; Start 11/20/16 at 18:00; Stop 11/20/16 at 18:01; Status DC Diltiazem HCl (Cardizem Inj) 25 mg STK-MED ONCE .ROUTE Last administered on 06:40; Start 11/21/16 at 06:31; Stop 11/21/16 at 06:32; Status DC Potassium Chloride (KCl) 30 meq ONCE ONCE PO Last administered on 11/21/16 08 :35; Start 11/21/16 at 07:30; Stop 11/21/16 at 07:31; Status DC Furosemide (Lasix Inj) 20 mg ONCE ONCE IV PUSH Last administered on 11/21/16 08:35; Start 11/21/16 at 07:30; Stop 11/21/16 at 07:31; Status DC Propofol (Diprivan 200 Mg/20 ml Inj) 200 mg STK-MED ONCE IV ; Start 11/20/16 at 09:10; Stop 11/21/16 at 09:11; Status DC Nitroglycerin/ Dextrose (Nitroglycerin-Dextrose Inj) 50 mg STK-MED ONCE IV ; Start 11/20/16 at 09:10; Stop 11/21/16 at 09:11; Status DC Phenylephrine HCl (Neosynephrine/ NS 1000 Mcg/10ml Syr) 2,000 mcg STK-MED ONCE IV ; Start 11/20/16 at 09:10; Stop 11/21/16 at 09:11; Status DC Iohexol (Omnipaque 350 Inj) 94 ml STK-MED ONCE IV Last administered on 09:42; Start 11/21/16 at 09:42; Stop 11/22/16 at 09:10; Status DC Potassium Chloride 20 meq 20 meq ONCE ONCE PO Last administered on 11/21/16 11:39; Start 11/21/16 at 12:00; Stop 11/22/16 at 09:10; Status DC Amiodarone HCl 150 mg/Dextrose 100 ml @ 600 mls/hr NOW ONCE IV Last administered on 11/21/16 11:35; Start 11/21/16 at 10:45; Stop 11/21/16 at 10:54 ; Status DC Amiodarone HCl/ Dextrose (Cordarone Inj/ D5W ([place]) Inj) 259 ml @ 0 mls/hr CONTINUOUS IV Last administered on 11/21/16 20:43; Start 11/21/16 at 10:45; Stop 11/24/16 at 09:38; Status DC Zolpidem Tartrate (Ambien) 5 mg HS PRN PO SLEEP; Start 11/21/16 at 11:00 Nicardipine HCl (Cardene Inj) 25 mg STK-MED ONCE .ROUTE ; Start 11/21/16 at 13: 56; Stop 11/22/16 at 09:10; Status DC Diltiazem HCl 20 mg 20 mg NOW ONCE IV ; Start 11/21/16 at 14:45; Stop 11/21/16 at 14:46; Status DC Diltiazem HCl/ Sodium Chloride (Cardizem Inj/NS Inj) 125 ml @ 0 mls/hr TITRATE IV Last administered on 11/23/16 03:40; Start 11/21/16 at 14:45; Stop 11/23/16 at 08:16; Status DC Diltiazem HCl 25 mg 25 mg STK-MED ONCE .ROUTE Last administered on 11/21/16 15 :03; Start 11/21/16 at 14:33; Stop 11/21/16 at 14:34; Status DC Amiodarone HCl 150 mg/Dextrose 100 ml @ 600 mls/hr ONCE ONCE IV Last administered on 11/21/16 16:00; Start 11/21/16 at 16:00; Stop 11/21/16 at 16:09 ; Status DC Magnesium Sulfate/ Dextrose (Magnesium Sulfate 1 Gm Premix) 100 ml @ 100 mls/ hr ONCE ONCE IV Last administered on 11/21/16 17:00; Start 11/21/16 at 17:00 ; Stop 11/21/16 at 17:59; Status DC Furosemide (Lasix Inj) 20 mg BID@09,18 IV PUSH Last administered on 11/27/16 08 :47; Start 11/22/16 at 09:00 Aspirin (Ecotrin Ec) 81 mg DAILY PO Last administered on 11/27/16 08:47; Start 11/22/16 at 10:00 Diltiazem HCl (Cardizem Cd) 240 mg DAILY PO Last administered on 11/23/16 09:00 ; Start 11/23/16 at 09:00; Stop 11/23/16 at 18:45; Status DC Patient Own Medication PT OWN MED: MOVAN... HS PO Last administered on 20:42; Start 11/23/16 at 21:00 Patient Own Medication PT OWN MED: RESTA... BID EACH EYE Last administered on 09:53; Start 11/23/16 at 21:00 Diltiazem HCl/ Sodium Chloride (Cardizem Inj/NS Inj) 125 ml @ 0 mls/hr TITRATE IV Last administered on 11/24/16 04:40; Start 11/23/16 at 19:00; Stop 11/24/16 at 09:30; Status DC Diltiazem HCl 60 mg 60 mg Q6HR PO Last administered on 11/27/16 06:20; Start at 00:00 Amiodarone HCl 150 mg/Dextrose 100 ml @ 600 mls/hr ONCE ONCE IV Last administered on 11/24/16 11:01; Start 11/24/16 at 09:30; Stop 11/24/16 at 09:39; Status DC Amiodarone HCl/ Dextrose (Cordarone Inj/ D5W ([place]) Inj) 250 ml @ 0 mls/hr CONTINUOUS IV Last administered on 11/25/16 05:25; Start 11/24/16 at 09:30; Stop 11/25/16 at 13:30; Status DC Diltiazem HCl (Cardizem Inj) 15 mg ONCE ONCE IV Last administered on 11/25/16 01:12; Start 11/25/16 at 01:00; Stop 11/25/16 at 01:02; Status DC Diltiazem HCl (Cardizem) 60 mg NOW@0330 PO Last administered on 11/25/16 03:37 ; Start 11/25/16 at 03:30; Stop 11/25/16 at 05:59; Status DC Amiodarone HCl (Cordarone) 400 mg TID PO Last administered on 11/27/16 08:47; Start 11/25/16 at 18:00 Diphenhydramine HCl (Benadryl) 25 mg Q6H PRN PO ITCHING Last administered on 20:42; Start 11/25/16 at 19:15 Guaifenesin (Robitussin Liq) 200 mg Q6HR PRN PO COUGH Last administered on 09:53; Start 11/26/16 at 08:45 Methylprednisolone Sodium Succinate (SoluMEDROL INJ) 125 mg ONCE ONCE IV PUSH Last administered on 11/26/16 12:37; Start 11/26/16 at 11:00; Stop 11/26/16 at 11: 01; Status DC Triamcinolone Acetonide (Aristocort 0.1% Oint) 1 applic Q6HR TOPICAL Last administered on 11/27/16 06:20; Start 11/26/16 at 12:00 A/P Assessment and Plan A/P Large pericardial effusion with tamponade physiology s/p emergent pericardiocentesis and pericardial drain placement on 11/20continue post operative care, pain control, physical therapy. Patient does have a history of morphine pump in place a spinal cord stimulator. Current cytology negative for any malignant cells, cultures were negative. Bilateral Pleural effusions s/p thoracentesis- continue with diuretics- CXR today with improvement-pulmonary following. A. fib/ flutter with RVR continue with Cardizem - amiodarone was switched to po - continue aspirin- cardiology following. swelling and tenderness along with some erythema over the right arm; venous doppler with superficial phlebitis; continue with warm compress. rash around the site of previous drain due to contact dermatitis-benadryl as needed- use topical steroids. Ascitescontinue with diuretics HypothyroidismSynthroid History of asthma, chroniccontinue with bronchodilators as needed. History of bipolar disorderresumed home medication Depakote and Effexor History of chronic pain status post spinal cord stimulator placement as well as morphine pump. Prophylaxis: PPI/SCDs. No heparin or Lovenox till cleared by Dr. Smith. Discharge Planning dc to SNF. see med list. f/u; pcp,cardiology and CT surgery. d/w the patient and RN. time spent 40 min. Francisco Gramajo MD Nov 27, 2016 10:01
[2016-11-27] MEDS: ACETAMINOPHEN/HYDROcodone 325 MG/5 MG TAB PO PRN (11:53)
--- NOTE | 2016-11-27 12:35 | HHI.PR ---
Subjective Remarks Up in a chair. On O2 4L. CXR Improved. Less effusions. Chest tubes are out. No fever. On O2 Objective Vital Signs Date Time Temp Pulse Resp B/P Pulse Ox O2 Delivery O2 Flow Rate FiO2 11/27/16 12:00 106 11/27/16 11:03 97.5 98 18 102/60 98 11/27/16 11:00 96 11/27/16 10:00 113 11/27/16 09:00 78 11/27/16 08:00 114 11/27/16 07:00 108 11/27/16 07:00 97.7 110 18 111/75 93 11/27/16 05:00 106 11/27/16 04:00 99 11/27/16 04:00 97.5 97 14 118/79 98 11/27/16 03:00 96 11/27/16 02:00 96 11/27/16 01:00 102 11/27/16 00:00 109 11/26/16 23:14 97.7 112 16 104/60 95 11/26/16 23:00 112 11/26/16 22:00 110 11/26/16 21:00 78 11/26/16 20:00 77 11/26/16 20:00 97.6 78 14 115/62 94 11/26/16 19:55 79 11/26/16 17:26 93 Nasal Cannula 2.00 11/26/16 15:00 98.8 87 18 121/74 93 11/26/16 15:00 95 I/O 11/26/16 11/26/16 11/26/16 11/27/16 11/27/16 11/27/16 07:00 15:00 23:00 07:00 15:00 23:00 Intake Total 240 ml 710 ml 480 ml Output Total 700 ml 1350 ml 1600 ml Balance -460 ml -640 ml -1120 ml Intake Oral 240 ml 710 ml 480 ml IV Total 0 ml 0 ml Output Urine Total 700 ml 1350 ml 1600 ml # Bowel Movements 0 1 2 Objective Remarks GENERAL: This elderly averagely-built white female is in no acute distress. No cyanosis, icterus or edema. HEENT: Head normocephalic. Pupils reactive. Tongue moist. Throat is injected. Nasal mucosa edematous. NECK: Supple. No lymphadenopathy. No bruits or thyroid enlargement. CHEST: Distant breath sounds with , prolonged expirations. HEART: The heart sounds are irregular. S1 and S2 with no murmur. No S3. ABDOMEN: Soft, benign. No mass. No organomegaly or tenderness. Bowel sounds are active. EXTREMITIES: No peripheral edema, with peripheral pulses that are well felt. Reflexes 1+ with no gross motor deficits. NEUROLOGIC: Cranial nerves grossly intact. RECTAL: Exam deferred. SKIN: No lesions. Assessment and Plan Assessment and Plan IMPRESSION 1. Status post pericardial window placement for large pericardial effusion. 2. Asthma with chronic bronchitis. 3. History of bipolar disorder 4. Bilateral Pleural effusions Plan : 1. D/C O2 2. IS at bedside qid. 3. Cont Lasix 20 mg . 4. IS at bedside q2h. 5. Duoneb nebs qid PRN. 6. Up with help. 7.Transfer to rehab Mariann Lopez MD Nov 27, 2016 12:35
[2016-11-27] MEDS ORDERED: HYDR-3516 PO (13:31)
[2016-11-27] MEDS ORDERED: DILT60TA33 PO (13:31)
[2016-11-27] MEDS ORDERED: ASPI81TA11 PO (13:31)
[2016-11-27] MEDS ORDERED: CLON.5 PO (13:31)
[2016-11-27] MEDS ORDERED: FURO20TA PO (13:31)
--- NOTE | 2016-11-27 13:33 | HHI.DCPOC ---
Discharge Care Plan Diagnosis: (1) Pericardial effusion (2) Cardiac tamponade Your Health Problems Are: Shortness of Breath Goals to Promote Your Health * To prevent worsening of your condition and complications * To maintain your health at the optimal level Directions to Meet Your Goals Take your medications as prescribed Follow your dietary instruction Follow activity as directed Keep your appointments as scheduled Take your immunizations and boosters as scheduled If your symptoms worsen call your PCP, if no PCP go to Urgent Care Center or Emergency Room Smoking is Dangerous to Your Health. Avoid second hand smoke Call the 24-hour hour crisis hotline for domestic abuse at Francisco Gramajo MD Nov 27, 2016 13:32
--- NOTE | 2016-11-27 13:34 | HHI.DS ---
Discharge Summary Admission Date Nov 20, 2016 at 11:35 Discharge Date: Nov 27, 2016 Admitting Diagnosis pericardial Tamponade (1) Pericardial effusion ICD Code: I31.3 Diagnosis: Principal (2) Cardiac tamponade ICD Code: I31.4 Diagnosis: Principal Procedures pericardial window thoracentesis Brief History - From Admission HPI 71-year-old female came to the emergency room brought by EMS with history of respiratory distress. Patient is awake but appears to be in significant distress. As per the paramedics patient was discharged from [facility] yesterday after being admitted for couple days for pneumonia. Patient told me that they saw fluid around her heart. She was given diuretics and she was discharged home yesterday. However patient says that she did not really feel 100% better and overnight shortness of breath worsened. She had a heart rate in the 140s when she arrived and diaphoretic. Patient was short of breath at rest. Patient has history of chronic pain and has a spinal cord stimulator along with morphine pump. She says she had history of asthma as a child. No history of fever or chills. Patient says she was given antibiotics in the hospital but was not discharged home on prescriptions. Patient was unable to give much descriptive history given her respiratory distress status. Her oxygen saturation was 96-98%. Patient was evaluated by Dr. Puentes in the ER, a stat bedside echo revealed large pericardial effusion with tamponade physiology for which she underwent emergent pericardiocentesis under ultrasound guidance by Dr. Puentes with removal of 125 cc of bloody pericardial fluid following which she had some improvement in her dyspnea. She did not have any documented hypotension per ER physician. Patient was accepted for admission by critical care medicine service. Dr. Smith from CT surgery was consulted and discussed the case with Dr. Puentes earlier. He is deciding regarding possible pericardial drain placement. When I evaluated the patient in the ER she was sitting up in bed did not appear to be in any acute distress though is slightly dyspneic. She denied any chest pain denied any nausea or abdominal discomfort. Denied any hemoptysis or chronic cough. [facility] Past Medical History Narrative Medical List of her past medical, social and family history is reviewed from the nursing note. Anemia: Yes Arthritis: Yes (thoracic and lumbar spine) Asthma: Yes (childhood) Autoimmune Disease: Yes (METABOLIC ENCEPHALITIS) Bipolar Disorder: Yes Anxiety: Yes Heart Rhythm Problems: No Cancer: No Cardiovascular Problems: No High Cholesterol: No Chest Pain: No Congestive Heart Failure: No COPD: No Cerebrovascular Accident: No Diabetes: No Diminished Hearing: No Endocrine: No Gastrointestinal Disorders: Yes GERD: No Glaucoma: No Genitourinary: No Headaches: Yes Hepatitis: No Hiatal Hernia: No Hypertension: No (DENIES) Immune Disorder: No Kidney Stones: No Musculoskeletal: Yes (arthritis) Neurologic: Yes (HEADACHES) Psychiatric: Yes (BIPOLAR) Reproductive: No Respiratory: Yes (ASTHMA) Immunizations Current: No Migraines: Yes Renal Failure: No Seizures: No Sleep Apnea: No Thyroid Disease: Yes Ulcer: No Menopausal: Yes Past Surgical History Abdominal Surgery: Yes AICD: No Body Medical Devices: SPINAL CORD STIMULATING LEADS AND GENERATOR Cardiac Surgery: No Ear Surgery: Yes (mass removed from right ear) Endocrine Surgery: No Eye Surgery: No Genitourinary Surgery: No Gynecologic Surgery: Yes (hysterectomy) Hysterectomy: Yes Joint Replacement: No Neurologic Surgery: Yes (TENS, SPINAL CORD STIMULATOR IMPL.) Oral Surgery: No Pacemaker: No Thoracic Surgery: No Tonsillectomy: Yes Other Surgery: Yes Social History Alcohol Use: No Tobacco Use: No Substance Use: No Allergies-Medications (Allergen,Severity, Reaction): Coded Allergies: Penicillin (Verified Allergy, Severe, hives, 11/20/16) Sulfa (Verified Allergy, Severe, hives, 11/20/16) Latex (Verified Allergy, Intermediate, rash, 11/20/16) Feldene (Verified Allergy, Unknown, 11/20/16) Flexeril (Unverified Adverse Reaction, Intermediate, PAU, 11/20/16) Vistaril (Unverified Adverse Reaction, Unknown, 11/20/16) Comments List of her allergies reviewed from the nursing note. Reported Meds & Prescriptions Reported Meds & Active Scripts Active Reported Vitamin D (Cholecalciferol) 2,000 Unit Cap 2,000 Units PO DAILY Epipen 2-Krish Inj (Epinephrine) 0.3 Mg/0.3 Ml Pfpen 0.3 Mg IM ONCE PRN Miralax Powder (Polyethylene Glycol 3350 Powder) 17 Gm Powd Unknown Dose PO DAILY PRN Mix and dissolve one measuring cap-ful (17 grams) in water or juice. Melatonin 3 Mg Cap 3 Mg PO HS Metamucil Original Texture (Psyllium Hydrophilic Mucilloid) 48.57 % Pow 1 Scoop PO BID 1 rounded TEASPOON in 8 oz of liquid at the first sign of irregularity. Biofreeze Topical (Menthol Topical) 4 % Gel 1 Applic TOPICAL DIRECTED PRN Colace (Docusate Sodium) 100 Mg Cap 100 Mg PO BID Zovirax (Acyclovir) 800 Mg Tab 800 Mg PO BID Morphine INSOLE ROUNDER Inj (Morphine Sulfate) 30 Mg/30 Ml Vial Unknown Dose IV DIRECTED INSOLE ROUNDER Movantik (Naloxegol) 25 Mg Tab 25 Mg PO HS Probiotic (Lactobacillus Acidophilus) 1 Cap Cap 1 Cap PO DAILY Nadolol 20 Mg Tab 20 Mg PO DAILY Levothyroxine (Levothyroxine Sodium) 75 Mcg Tab 75 Mcg PO DAILY Gabapentin 300 Mg Cap 300 Mg PO BID Estrace (Estradiol) 2 Mg Tab 2 Mg PO DAILY Seroquel (Quetiapine Fumarate) 50 Mg Tab 50 Mg PO HS Klonopin (Clonazepam) 0.5 Mg Tab 0.5 Mg PO BID Effexor XR 24 HR (Venlafaxine HCl) 150 Mg Cap 150 Mg PO DAILY Depakote DR (Divalproex Sodium) 250 Mg Tabdr 750 Mg PO HS Restasis Opth Drops (Cyclosporine Opth Drops) 0.05% Emul 1 Drop EACH EYE BID Preservision Areds 2 (Multiple Vitamins W/ Minerals) 1 Cap 1 Cap PO BID Narrative Medication List of her home medications reviewed from the nursing note. Review of Systems Except as stated in HPI: all other systems reviewed are Neg Imaging Last Impressions Upper Extremity Ultrasound 11/25/16 0000 Signed Impressions: Service Date/Time: Friday, November 25, 2016 12:54 - CONCLUSION: 1. There is occlusive thrombus within the right mid cephalic vein. 2. Remaining veins of the right upper extremity are patent. Medardo Zamudio MD Chest X-Ray 11/23/16 0500 Signed Impressions: Service Date/Time: November 04:23 - CONCLUSION: 1. Stable basilar airspace disease and pleural effusions compared with November 22. German Joseph MD Chest Ultrasound 11/21/16 0000 Signed Impressions: Service Date/Time: Monday, November 21, 2016 18:35 - CONCLUSION: Moderate-sized pleural effusion marked for thoracentesis. Bo Marmolejo MD Abdomen/Pelvis CT 11/20/16 0000 Signed Impressions: Service Date/Time: Monday, November 21, 2016 09:31 - CONCLUSION: 1. Pericardial drain has been placed with good location. I do not see any significant re-accumulation of the pericardial effusion. There are some tiny locules of air underneath the xiphoid process likely related to the catheter placement. 2. Large bilateral pleural effusions with significant passive atelectasis both lung bases. 3. Ascites within the pelvis. Please see above. Jackson Thornton MD PE at Discharge GENERAL: This is a well-nourished, well-developed patient, in no apparent distress. CARDIOVASCULAR: Regular rate and regular rhythm without murmurs, gallops, or rubs. RESPIRATORY: Clear to auscultation. Breath sounds equal bilaterally. No wheezes , rales, or rhonchi. GASTROINTESTINAL: Abdomen soft, non-tender, nondistended. Normal, active bowel sounds MUSCULOSKELETAL: mild swelling and tenderness over the right arm NEURO: Alert & Oriented x4 to person, place, time, situation. Moves all ext x4 skin; erythema noted over the right arm Hospital Course Large pericardial effusion with tamponade physiology s/p emergent pericardiocentesis and pericardial drain placement on 11/20continue post operative care, pain control, physical therapy. Patient does have a history of morphine pump in place a spinal cord stimulator. Current cytology negative for any malignant cells, cultures were negative. Bilateral Pleural effusions s/p thoracentesis- continue with diuretics- CXR today with improvement-pulmonary following. A. fib/ flutter with RVR continue with Cardizem - amiodarone was switched to po - continue aspirin- cardiology following. swelling and tenderness along with some erythema over the right arm; venous doppler with superficial phlebitis; continue with warm compress. rash around the site of previous drain due to contact dermatitis-benadryl as needed- use topical steroids. Ascitescontinue with diuretics HypothyroidismSynthroid History of asthma, chroniccontinue with bronchodilators as needed. History of bipolar disorderresumed home medication Depakote and Effexor History of chronic pain status post spinal cord stimulator placement as well as morphine pump. Pt Condition on Discharge: Fair Discharge Disposition: Discharge to SNF Discharge Time: > 30 minutes Discharge Instructions DIET: Follow Instructions for: Heart Healthy Diet Activities you can perform: Regular-No Restrictions Follow up Referrals: Cardiology PCP Follow-up Surgical New Medications: Potassium Chloride ER (Potassium Chloride ER) 10 Meq Cap 10 MEQ PO DAILY Electrolyte Replacement #30 Ref 0 CAP Amiodarone (Amiodarone) 200 Mg Tab 400 MG PO DIRECTED 400 mg po three times daily for three days then 200 mg po daily. a-fib Days [address] (Aspirin EC) 81 Mg Tabdr 81 MG PO DAILY antiplatelet Days 30 Ref 0 TAB Diltiazem (Cardizem) 60 Mg Tab 60 MG PO Q6HR a-fib Days 30 Ref 0 TAB Furosemide (Furosemide) 20 Mg Tab 20 MG PO BID@09,18 diuretic Days 30 Ref 0 TAB Hydrocodone-Acetaminophen (Hydrocodone-Acetaminophen) 5-325 mg Tab 1 TAB PO Q4H PRN pain #20 Ref 0 TAB Ipratropium-Albuterol Neb (Duoneb) 0.5-2.5 Mg/3 Ml Neb 1 AMPULE INH Q4HR NEB PRN SHORTNESS OF BREATH Days 5 Ref 0 ML Triamcinolone Topical (Triamcinolone Topical) 0.1 % Oint 1 APPLIC TOPICAL Q6HR dermatitis Days 3 Ref 0 TUBE Continued Medications: Acyclovir (Zovirax) 800 Mg Tab 800 MG PO BID Mgmt Viral Infection Ref 0 TAB Cholecalciferol (Vitamin D) 2,000 Unit Cap 2000 UNITS PO DAILY Clonazepam (Klonopin) 0.5 Mg Tab 0.5 MG PO BID Anxiety #20 Ref 0 TAB (This prescription has been renewed) Cyclosporine Opth Drops (Restasis Opth Drops) 0.05% Emul 1 DROP EACH EYE BID Dry Eye #1 Ref [address] (Depakote DR) 250 Mg Tabdr 750 MG PO HS Control Seizures #60 Ref 0 TAB Docusate Sodium (Colace) 100 Mg Cap 100 MG PO BID Constipation #60 Ref 0 CAP Estradiol (Estrace) 2 Mg Tab 2 MG PO DAILY Estrogen Supplements #30 Ref 0 TAB Gabapentin (Gabapentin) 300 Mg Cap 300 MG PO BID #60 Ref 0 CAP Lactobacillus Acidophilus (Probiotic) 1 Cap Cap 1 CAP PO DAILY Nutritional Supplement #90 Ref 0 CAP Levothyroxine (Levothyroxine) 75 Mcg Tab 75 MCG PO DAILY Thyroid #30 Ref 0 TAB Melatonin (Melatonin) 3 Mg Cap 3 MG PO HS Morphine INSOLE ROUNDER Inj (Morphine INSOLE ROUNDER Inj) 30 Mg/30 Ml Vial Unknown Dose IV DIRECTED INSOLE ROUNDER VIAL Multiple Vitamins W/ Minerals (Preservision Areds 2) 1 Cap 1 CAP PO BID Nutritional Supplement Ref 0 CAP Naloxegol (Movantik) 25 Mg Tab 25 MG PO HS Prevent Constipation #30 Ref 0 TAB Polyethylene Glycol 3350 Powder (Miralax Powder) 17 Gm Powd 17 GM PO DAILY Mix and dissolve one measuring cap-ful (17 grams) in water or juice. PRN CONSTIPATION #1 Ref 0 BOTTLE Psyllium Powder (Metamucil Original Texture) 48.57 % Pow 1 SCOOP PO BID 1 rounded TEASPOON in 8 oz of liquid at the first sign of irregularity. CONSTIPATION Ref 0 CONTAINER Quetiapine (Seroquel) 50 Mg Tab 50 MG PO HS #30 Ref 0 TAB Venlafaxine ER 24 HR (Effexor XR 24 HR) 150 Mg Cap 150 MG PO DAILY #30 Ref 0 CAP Discontinued Medications: Epinephrine Inj (Epipen 2-Krish Inj) 0.3 Mg/0.3 Ml Pfpen 0.3 MG IM ONCE PRN ALLERGIC REACTION #1 Ref 0 PACK Menthol Topical (Biofreeze Topical) 4 % Gel 1 APPLIC TOPICAL DIRECTED PRN PAIN #1 Ref 0 TUBE Nadolol (Nadolol) 20 Mg Tab 20 MG PO DAILY #30 Ref 0 TAB Francisco Gramajo MD Nov 27, 2016 13:34
[2016-11-27] MEDS ORDERED: AMIO200T PO (13:41)
[2016-11-27] MEDS ORDERED: TRIAM.1%T TOPICAL (13:44)
[2016-11-27] MEDS ORDERED: POTA10CA PO (13:45)
[2016-11-27] MEDS ORDERED: IPRASOL INH (13:48)
[2016-11-27 14:28] LABS: BICARBONATE 34.8 MEQ/L (21.0-32.0); POTASSIUM 3.4 MEQ/L (3.5-5.1)
[2016-11-27] MEDS ORDERED: FUROSEMIDE 20 MG TAB PO SCH (18:00)
== END 2016-11-27 14:20 | DRG 271 ==
LOC: NEPA 10:00 → NEDA 11:35 → HCVR 16:48 → HCIN 11-24 15:30
PROVIDERS: ADMIT Internal Medicine; ATTEND Internal Medicine
PROC: 0W9D3ZX Drainage of Pericardial Cavity, Percutaneous Approach, Diagnostic (ICD-10-PCS; 2016-11-20)
PROC: B246ZZ4 Ultrasonography of Right and Left Heart, Transesophageal (ICD-10-PCS; 2016-11-20)
PROC: 0W9930Z Drainage of Right Pleural Cavity with Drainage Device, Percutaneous Approach (ICD-10-PCS; 2016-11-20)
PROC: 0W9D00Z Drainage of Pericardial Cavity with Drainage Device, Open Approach (ICD-10-PCS; principal; 2016-11-20 15:15)
PROC: 0W9B3ZX Drainage of Left Pleural Cavity, Percutaneous Approach, Diagnostic (ICD-10-PCS; 2016-11-22)
DX: I31.3 Pericardial effusion (noninflammatory) (principal); E87.1 Hypo-osmolality and hyponatremia; I31.4 Cardiac tamponade; J90 Pleural effusion, not elsewhere classified; R18.8 Other ascites; I80.8 Phlebitis and thrombophlebitis of other sites; I48.92 Unspecified atrial flutter; I48.0 Paroxysmal atrial fibrillation; J45.909 Unspecified asthma, uncomplicated; R00.0 Tachycardia, unspecified; M19.90 Unspecified osteoarthritis, unspecified site; F31.9 Bipolar disorder, unspecified; G89.29 Other chronic pain; F41.9 Anxiety disorder, unspecified; Z88.2 Allergy status to sulfonamides; Z88.8 Allergy status to other drugs, medicaments and biological substances; Z88.1 Allergy status to other antibiotic agents; Z91.040 Latex allergy status; M54.9 Dorsalgia, unspecified; E03.9 Hypothyroidism, unspecified; K21.9 Gastro-esophageal reflux disease without esophagitis; J42 Unspecified chronic bronchitis; R21 Rash and other nonspecific skin eruption; L25.9 Unspecified contact dermatitis, unspecified cause
CPT/HCPCS: 32554; 33010; 71010; 71020; 74177; 76604; 76937; 80048; 80053; 81001; 82150; 82945; 82948; 83615; 83735; 83880; 83986; 84100; 84157; 84443; 84484; 85025; 85610; 85652; 86140; 86850; 86900; 86901; 87015; 87040; 87070; 87102; 87116; 87205; 87206; 87252; 87253; 87641; 88112; 88305; 89051; 93005; 93308; 93318; 93971; 94150; J0282; J1170; J1644; J1885; J1940; J2250; J2370; J2405; J2930; J3010; J3370; J3475; J7030; J7050; J7060; Q9967

== ENCOUNTER 2016-12-01 23:52 | Emergency (ER) | payer MEDICARE, OTHER ==
[~2016-12-01] VITALS: Ht 154.9 cm; Wt 48.0 kg
[~2016-12-01 23:52] MED LIST changes: +AMIO200T PO; +ASPI81TA11 PO; +DILT60TA33 PO; -EPIP0.3I IM; +FURO20TA PO; +HYDR-3516 PO; +IPRASOL INH; -MENT4GEL2 TOPICAL; -NADO20TA PO; -NITROGLYCERIN 50 MG/DEXTROSE 5% SOLN 250 ML BTL IV ONE; -PHENYLEPH/NS 1000 MCG/10 ML SYR IV ONE; +POTA10CA PO; -PROPOFOL 200 MG/20 ML AMP IV ONE; +TRIAM.1%T TOPICAL
[2016-12-01 23:56] VITALS: BP 161/69; PULSE 79; RESP 16; TEMP 97.5; O2SAT 98
[2016-12-01 23:59] VITALS: BP 161/69; PULSE 76; RESP 14; O2SAT 98
[2016-12-02 00:43] LABS: AUTOMATED NEUTROPHIL # 6.7 TH/MM3 (1.8-7.7); BASOPHIL # 0.1 TH/MM3 (0-0.2); BASOPHIL % 0.6 % (0.0-2.0); EOSINOPHIL # 0.9 TH/MM3 (0-0.4); HEMATOCRIT 28.7 % (35.0-46.0); LYMPH % 24.3 % (9.0-44.0); LYMPHOCYTE # 2.7 TH/MM3 (1.0-4.8); MEAN CELL VOLUME 94.9 FL (80.0-100.0); MEAN CORPUSCULAR HEMOGLOBIN 32.2 PG (27.0-34.0); MONO % 6.1 % (0.0-8.0); PLATELET COUNT 693 TH/MM3 (150-450); RED BLOOD COUNT 3.02 MIL/MM3 (4.00-5.30); RED CELL DISTRIBUTION WIDTH 13.8 % (11.6-17.2)
[2016-12-02 00:45] LABS: HEMO FLAGS AUTO DIFF
[2016-12-02 01:15] LABS: BANDS 4 % (0-6); BASOPHILS 1 % (0-2); EOSINOPHILS 11 % (0-4); METAMYELOCYTES 3 % (0-1); NEUTROPHIL # MANUAL DIFF 5.8 TH/MM3 (1.8-7.7); POLYS (SEG NEUTROPHILS) 46 % (16-70); WBC DIFF SAMPLE 100
[2016-12-02 01:21] LABS: ALT (GPT) 19 U/L (10-53); ANION GAP 8 MEQ/L (5-15); AST (GOT) 22 U/L (15-37); BICARBONATE 31.1 MEQ/L (21.0-32.0); BLOOD UREA NITROGEN 26 MG/DL (7-18); CHLORIDE 96 MEQ/L (98-107); GLOMERULAR FILTRATION RATE 53 ML/MIN (>89); SODIUM (NA) 135 MEQ/L (136-145)
[2016-12-02 01:22] LABS: POTASSIUM 4.4 MEQ/L (3.5-5.1)
[2016-12-02 01:26] LABS: PLATELET ESTIMATE SMEAR HIGH (NORMAL); PLATELET MORPHOLOGY NORMAL (NORMAL); SCAN/DIFF FINAL DIFF MANUAL; TOXIC VACUOLATION PRESENT (NONE SEEN)
[2016-12-02 01:29] LABS: ALKALINE PHOSPHATASE 77 U/L (45-117); TOTAL BILIRUBIN ADULT 0.2 MG/DL (0.2-1.0)
[2016-12-02] MEDS ORDERED: FURO1TAB60 PO (02:35)
--- NOTE | 2016-12-02 02:35 | PD ---
HPI Chief Complaint: Edema Time Seen by Provider: 00:14 Travel History International Travel<30 days: No Contact w/Intl Traveler<30days: No Traveled to known affect area: No History of Present Illness HPI This is a 71-year-old female who presents to the emergency department with increasing lower extremity swelling that she says has been worsening ever since she's been in rehabilitation. Patient has had a complicated course in the past month where she was admitted for pneumonia in late October and then readmitted for pericardial effusion and possible pericardial tamponade. The patient reports that she's been gaining weight and rehabilitation and her legs have been more swollen, constant, moderate severity with no associated shortness of breath. She does take Lasix 20 mg twice a day. PFSH Past Medical History Anemia: Yes Arthritis: Yes (thoracic and lumbar spine) Asthma: Yes (childhood) Autoimmune Disease: Yes (METABOLIC ENCEPHILITIS) Bipolar Disorder: Yes Anxiety: Yes Heart Rhythm Problems: No Cancer: No Cardiovascular Problems: Yes (pericardial effusion, cardiac tamponade) High Cholesterol: No Chest Pain: No Congestive Heart Failure: No COPD: No Cerebrovascular Accident: No Diabetes: No Diminished Hearing: No Endocrine: No Gastrointestinal Disorders: Yes GERD: No Glaucoma: No Genitourinary: No Headaches: Yes Hepatitis: No Hiatal Hernia: No Immune Disorder: No Kidney Stones: No Medical other: Yes (back problems, EARLY MAC DEGEN. MOUNA., ANEMIA, RIGHT EARLOBE SORE) Psychiatric: Yes (BIPOLAR) Reproductive: No Respiratory: Yes (asthma, COPD) Immunizations Current: No Migraines: Yes Pneumonia: Yes Renal Failure: No Seizures: No Sleep Apnea: No Thyroid Disease: Yes Ulcer: No Tetanus Vaccination: > 5 Years Menopausal: Yes Past Surgical History Abdominal Surgery: Yes AICD: No Body Medical Devices: SPINAL CORD STIMULATING LEADS AND GENERATOR, MORPHINE PUMP Cardiac Surgery: No Ear Surgery: Yes (mass removed from right ear) Endocrine Surgery: No Eye Surgery: No Genitourinary Surgery: No Gynecologic Surgery: Yes (hysterectomy) Hysterectomy: Yes Joint Replacement: No Neurologic Surgery: Yes (TENS, SPINAL CORD STIMULATOR IMPL.) Oral Surgery: No Pacemaker: No Thoracic Surgery: No Tonsillectomy: Yes Other Surgery: Yes Social History Alcohol Use: No Tobacco Use: No Substance Use: No Allergies-Medications (Allergen,Severity, Reaction): Coded Allergies: Penicillin (Verified Allergy, Severe, hives, 12/02/16) Sulfa (Verified Allergy, Severe, hives, 12/02/16) Latex (Verified Allergy, Intermediate, rash, 12/02/16) Feldene (Verified Allergy, Unknown, 12/02/16) Hydroxyzine (Verified Allergy, Unknown, 12/02/16) Flexeril (Unverified Adverse Reaction, Intermediate, PAU, 12/02/16) Vistaril (Unverified Adverse Reaction, Unknown, 12/02/16) Reported Meds & Prescriptions Reported Meds & Active Scripts Active Duoneb (Ipratropium-Albuterol Neb) 0.5-2.5 Mg/3 Ml Neb 1 Ampule INH Q4HR NEB PRN 5 Days Potassium Chloride ER (Potassium Chloride) 10 Meq Cap 10 Meq PO DAILY Triamcinolone Topical (Triamcinolone Acetonide) 0.1 % Oint 1 Applic TOPICAL Q6HR 3 Days Amiodarone (Amiodarone HCl) 200 Mg Tab 400 Mg PO DIRECTED 30 Days 400 mg po three times daily for three days then 200 mg po daily. Cardizem (Diltiazem HCl) 60 Mg Tab 60 Mg PO Q6HR 30 Days Hydrocodone-Acetaminophen 5-325 mg Tab 1 Tab PO Q4H PRN Furosemide 20 Mg Tab 20 Mg PO BID@,18 30 Days Aspirin EC (Aspirin) 81 Mg Tabdr 81 Mg PO DAILY 30 Days Klonopin (Clonazepam) 0.5 Mg Tab 0.5 Mg PO BID Reported Vitamin D (Cholecalciferol) 2,000 Unit Cap 2,000 Units PO DAILY Miralax Powder (Polyethylene Glycol 3350 Powder) 17 Gm Powd 17 Gm PO DAILY PRN Mix and dissolve one measuring cap-ful (17 grams) in water or juice. Melatonin 3 Mg Cap 3 Mg PO HS Metamucil Original Texture (Psyllium Hydrophilic Mucilloid) 48.57 % Pow 1 Scoop PO BID 1 rounded TEASPOON in 8 oz of liquid at the first sign of irregularity. Colace (Docusate Sodium) 100 Mg Cap 100 Mg PO BID Zovirax (Acyclovir) 800 Mg Tab 800 Mg PO BID Morphine MEDICAL DELIVERY DRIVER Inj (Morphine Sulfate) 30 Mg/30 Ml Vial Unknown Dose IV DIRECTED MEDICAL DELIVERY DRIVER Movantik (Naloxegol) 25 Mg Tab 25 Mg PO HS Probiotic (Lactobacillus Acidophilus) 1 Cap Cap 1 Cap PO DAILY Levothyroxine (Levothyroxine Sodium) 75 Mcg Tab 75 Mcg PO DAILY Gabapentin 300 Mg Cap 300 Mg PO BID Estrace (Estradiol) 2 Mg Tab 2 Mg PO DAILY Seroquel (Quetiapine Fumarate) 50 Mg Tab 50 Mg PO HS Effexor XR 24 HR (Venlafaxine HCl) 150 Mg Cap 150 Mg PO DAILY Depakote DR (Divalproex Sodium) 250 Mg Tabdr 750 Mg PO HS Restasis Opth Drops (Cyclosporine Opth Drops) 0.05% Emul 1 Drop EACH EYE BID Preservision Areds 2 (Multiple Vitamins W/ Minerals) 1 Cap 1 Cap PO BID Review of Systems Except as stated in HPI: all other systems reviewed are Neg Physical Exam Narrative GENERAL: Frail female in no acute distress. SKIN: Warm and dry. HEAD: Atraumatic. Normocephalic. EYES: Pupils equal and round. No injection or drainage. ENT: Moist mucous membranes NECK: Trachea midline. CARDIOVASCULAR: Regular rate and rhythm. No murmur appreciated. 2+ bilateral pitting edema. RESPIRATORY: Clear to auscultation. Breath sounds equal bilaterally. GASTROINTESTINAL: Abdomen soft, non-tender, nondistended. MUSCULOSKELETAL: No obvious deformities. NEUROLOGICAL: Awake and alert. No obvious cranial nerve deficits. Moving all extremities. PSYCHIATRIC: Appropriate mood and affect; insight and judgment normal. Data Data Last Documented VS Vital Signs Date Time Temp Pulse Resp B/P Pulse Ox O2 Delivery O2 Flow Rate FiO2 12/02/16 00:05 98 Room Air 12/01/16 23:59 76 14 161/69 12/01/16 23:56 97.5 Orders Complete Blood Count With Diff (12/02/16 00:21) Comprehensive Metabolic Panel (12/02/16 00:21) ^ Insert Iv (12/02/16 00:21) B-Type Natriuretic Peptide (12/02/16 00:21) Thyroid Stimulating Hormone (12/02/16 00:21) Electrocardiogram (12/02/16 ) Troponin I (12/02/16 00:21) Labs Laboratory Tests Test 12/02/16 00:31 White Blood Count 11.0 TH/MM3 Red Blood Count 3.02 MIL/MM3 Hemoglobin 9.7 GM/DL Hematocrit 28.7 % Mean Corpuscular Volume 94.9 FL Mean Corpuscular Hemoglobin 32.2 PG Mean Corpuscular Hemoglobin 34.0 % Concent Red Cell Distribution Width 13.8 % Platelet Count 693 TH/MM3 Mean Platelet Volume 7.2 FL Neutrophils (%) (Auto) 61.0 % Lymphocytes (%) (Auto) 24.3 % Monocytes (%) (Auto) 6.1 % Eosinophils (%) (Auto) 8.0 % Basophils (%) (Auto) 0.6 % Neutrophils # (Auto) 6.7 TH/MM3 Lymphocytes # (Auto) 2.7 TH/MM3 Monocytes # (Auto) 0.7 TH/MM3 Eosinophils # (Auto) 0.9 TH/MM3 Basophils # (Auto) 0.1 TH/MM3 CBC Comment AUTO DIFF Differential Total Cells 100 Counted Neutrophils % (Manual) 46 % Band Neutrophils % 4 % Lymphocytes % 29 % Monocytes % 6 % Eosinophils % 11 % Basophils % 1 % Neutrophils # (Manual) 5.8 TH/MM3 Metamyelocytes 3 % Differential Comment FINAL DIFF MANUAL Toxic Vacuolation PRESENT Platelet Estimate HIGH Platelet Morphology Comment NORMAL Sodium Level 135 MEQ/L Potassium Level 4.4 MEQ/L Chloride Level 96 MEQ/L Carbon Dioxide Level 31.1 MEQ/L Anion Gap 8 MEQ/L Blood Urea Nitrogen 26 MG/DL Creatinine 1.03 MG/DL Estimat Glomerular Filtration 53 ML/MIN Rate Random Glucose 67 MG/DL Calcium Level 8.5 MG/DL Total Bilirubin 0.2 MG/DL Aspartate Amino Transf 22 U/L (AST/SGOT) Alanine Aminotransferase 19 U/L (ALT/SGPT) Alkaline Phosphatase 77 U/L Troponin I LESS THAN 0.02 NG/ML B-Type Natriuretic Peptide 409 PG/ML Total Protein 7.2 GM/DL Albumin 2.5 GM/DL Thyroid Stimulating Hormone 7.530 uIU/ML [address] [place] [address] Medical Decision Making Medical Screen Exam Complete: Yes Emergency Medical Condition: Yes Interpretation(s) Anemia is consistent with baseline GFR is mildly reduced BNP is higher than prior but indeterminate TSH is elevated Differential Diagnosis Congestive heart failure, venous stasis, hypoalbuminemia, hypothyroidism Narrative Course This is a 71-year-old female who presents to the emergency department with increasing lower extremity edema. She is placed in a monitor and an IV was established. Labs are obtained which demonstrate multiple possible etiologies of her swelling. Her BNP is slightly elevated compared to prior. I think this can safely be followed up by her outpatient access representative that she just recently had an echo as an inpatient. She does have low albumin which could be contributing to her edema, and she has an elevated TSH which may suggest underlying hypothyroidism. I think patient can be increased to 40 mg twice daily of Lasix and can follow-up with her primary care physician. Diagnosis Primary Impression: Edema Qualified Code: R60.9 - Edema, unspecified type Patient Instructions: General Instructions Additional Instructions: Your BNP is slightly elevated which should be followed by your access representative. You have low protein which may be contributing to your swelling. Your TSH is elevated and you may have underlying thyroid disease which should be tested by your primary care physician. All of these things could be contributing to your swelling. Increase your Lasix from 20 mg to 40 mg twice daily and follow-up with your primary care physician as soon as possible for further testing. Med/Other Pt SpecificInfo: Prescription(s) given Scripts Furosemide (Lasix)40 Mg Tab40 Mg PO BID 5 Days Ref 0 Prov:Lilia Flor MD 12/02/16 Disposition: 01 DISCHARGE HOME Condition: Stable Lilia Flor MD Dec 02, 2016 02:35
--- NOTE | 2016-12-02 17:26 | EKG ---
Date Performed: 12/02/2016 Time Performed: 00:28:58 PTAGE: 71 years EKG: Sinus rhythm WITH OCCASIONAL SUPRAVENTRICULAR PREMATURE COMPLEXES POSSIBLE LEFT ATRIAL ENLARGEMENT NONSPECIFIC T- WAVE ABNORMALITY SINCE PREVIOUS TRACING 11/21/2016, RHYTHM HAS CHANGED FROM ATRIAL FIBRILLATION TO SIN US RHYTHM. BORDERLINE ECG PREVIOUS TRACING : 11/21/2016 03.30 DOCTOR: Tyron Saleem Interpretating Date/Time 12/02/2016 17:25:19
== END 2016-12-02 08:00 | disposition home or self-care (01) ==
LOC: NEPC 23:52
DX: R60.9 Edema, unspecified (principal); J45.909 Unspecified asthma, uncomplicated; J44.9 Chronic obstructive pulmonary disease, unspecified; E07.9 Disorder of thyroid, unspecified; R94.31 Abnormal electrocardiogram [ECG] [EKG]
CPT/HCPCS: 80053; 83880; 84443; 84484; 85007; 85027; 93005; 99284

== ENCOUNTER 2016-12-10 15:04 | Inpatient (IN) | payer MEDICARE, OTHER ==
[~2016-12-10] VITALS: Ht 152.4 cm; Wt 62.5 kg
[2016-12-10] VITALS (17 sets, daily range): BP systolic 93–167; BP diastolic 51–75; PULSE 44–75; RESP 12–18; TEMP 97.6; O2SAT 93–100
[~2016-12-10 15:04] MED LIST changes: +ATROPINE SULFATE 1 MG/10 ML SYRINGE IV ONE; +FURO1TAB60 PO
[2016-12-10] MEDS ORDERED: DOPamine INJ PREMIX 500 ML ONE (15:28)
[2016-12-10] MEDS ORDERED: TERBUTALINE INJ 1 MG/ML AMP SQ PRN (15:45)
[2016-12-10] MEDS: DOPamine INJ PREMIX 500 ML IV SCH (15:59)
--- NOTE | 2016-12-10 16:01 | RADRPT ---
EXAM DATE/TIME: 12/10/2016 15:52 [facility] COMPARISON: CHEST PA & LAT, November 27, 2016, 9:11. CHEST SINGLE AP, November 23, 2016, 4:23. INDICATIONS : Lethargic, Short of Breath. MEDICAL HISTORY : Inflammatory bowel disease. Osteoporosis. Arthritis. Hyperthyroidism. Cataracts. Narrow angle glaucom a. Acute encephalopathy. Syncope. Migraines. Pericardial effusion. Pneumonia. Pleural effusion. Cervi desiree radiculopathy. Asthma. Restless leg syndrome. Bipolar disorder. Anxiety. Anemia. Hay fever. SURGICAL HISTORY : Tonsillectomy. Hysterectomy. Right ear mass removed. Spinal cord stimulator implant. Breast implants. Oophorectomy. Lower back fusion. Blood transfusions. ENCOUNTER: Initial ACUITY: 1 day PAIN SCORE: Non-responsive. LOCATION: Bilateral chest FINDINGS: A single AP supine view of the chest was obtained and demonstrates improved aeration mild patchy opac ity remains at both lung bases. The previously noted pleural effusions are no longer visualized. The heart size remains mildly prominent. Atherosclerotic changes remain in the aorta. Spinal stimulator l katerina are noted projected over the lower thoracic spine. The bony thorax is intact. CONCLUSION: 1. Improved aeration with mild residual infiltrate at the lung bases. 2. The previously noted small bilateral effusions are no longer visualized. Sergei Chowdhury MD on December 10, 2016 at 15:58 Board Certified Radiologist. This report was verified electronically.
[2016-12-10] MEDS ORDERED: SUCCINYLCHOLINE CHLORIDE 200 MG/10 ML VIAL ONE (16:04)
[2016-12-10] MEDS ORDERED: ETOMIDATE 20 MG/10 ML VIAL ONE (16:04)
--- NOTE | 2016-12-10 16:32 | PD ---
HPI Chief Complaint: Cardiac Complaint Time Seen by Provider: 15:14 Travel History International Travel<30 days: No Contact w/Intl Traveler<30days: No Traveled to known affect area: No History of Present Illness HPI The patient was seen and examined in the presence of the nurse. Patient is brought in emergent paramedics and she is critically ill. She was having presyncopal symptoms and generalized weakness and found to be significantly bradycardic at around 40. She received 1 mg IV atropine with no response. She arrives very lethargic and can't provide any history or review of systems. [facility] Past Medical History Medical History: Unable to Obtain Anemia: Yes Arthritis: Yes (thoracic and lumbar spine) Asthma: Yes (childhood) Autoimmune Disease: Yes (METABOLIC ENCEPHILITIS) Bipolar Disorder: Yes Anxiety: Yes Heart Rhythm Problems: No Cancer: No Cardiovascular Problems: Yes (pericardial effusion, cardiac tamponade) High Cholesterol: No Chest Pain: No Congestive Heart Failure: No COPD: No Cerebrovascular Accident: No Diabetes: No Diminished Hearing: No Endocrine: No Gastrointestinal Disorders: Yes GERD: No Glaucoma: No Genitourinary: No Headaches: Yes Hepatitis: No Hiatal Hernia: No Immune Disorder: No Kidney Stones: No Medical other: Yes (back problems, EARLY MAC DEGEN. MOUNA., ANEMIA, RIGHT EARLOBE SORE) Psychiatric: Yes (BIPOLAR) Reproductive: No Respiratory: Yes (asthma, COPD) Immunizations Current: No Migraines: Yes Pneumonia: Yes Renal Failure: No Seizures: No Sleep Apnea: No Thyroid Disease: Yes Ulcer: No Menopausal: Yes Past Surgical History Surgical History: Unable to Obtain Abdominal Surgery: Yes AICD: No Body Medical Devices: SPINAL CORD STIMULATING LEADS AND GENERATOR, MORPHINE PUMP Cardiac Surgery: No Ear Surgery: Yes (mass removed from right ear) Endocrine Surgery: No Eye Surgery: No Genitourinary Surgery: No Gynecologic Surgery: Yes (hysterectomy) Hysterectomy: Yes Joint Replacement: No Neurologic Surgery: Yes (TENS, SPINAL CORD STIMULATOR IMPL.) Oral Surgery: No Pacemaker: No Thoracic Surgery: No Tonsillectomy: Yes Other Surgery: Yes Social History Alcohol Use: No Tobacco Use: No Substance Use: No Allergies-Medications (Allergen,Severity, Reaction): Coded Allergies: Penicillin (Verified Allergy, Severe, hives, 12/10/16) Sulfa (Verified Allergy, Severe, hives, 12/10/16) Latex (Verified Allergy, Intermediate, rash, 12/10/16) Feldene (Verified Allergy, Unknown, 12/10/16) Hydroxyzine (Verified Allergy, Unknown, 12/10/16) Flexeril (Unverified Adverse Reaction, Intermediate, PAU, 12/10/16) Vistaril (Unverified Adverse Reaction, Unknown, 12/10/16) Reported Meds & Prescriptions Reported Meds & Active Scripts Active Potassium Chloride ER (Potassium Chloride) 10 Meq Cap 10 Meq PO DAILY Cardizem (Diltiazem HCl) 60 Mg Tab 60 Mg PO Q6HR 30 Days Aspirin EC (Aspirin) 81 Mg Tabdr 81 Mg PO DAILY 30 Days Klonopin (Clonazepam) 0.5 Mg Tab 0.5 Mg PO BID Reported Tessalon Perles (Benzonatate) 100 Mg Cap 100-200 Mg PO TID PRN Lasix (Furosemide) 20 Mg Tab 20 Mg PO BID Pacerone (Amiodarone HCl) 200 Mg Tab 200 Mg PO DAILY Fexofenadine (Fexofenadine HCl) 180 Mg Tab 180 Mg PO DAILY PRN Biotin 5,000 Mcg Cap 5,000 Mcg PO DAILY Gas-X Prevention (Ipsvn-D-Nbpynbkgagnpf) 1 Cap 1 Cap PO DAILY PRN Ibuprofen 200 Mg Cap 200 Mg PO Q4-6H PRN Centrum Silver Adult 50+ (Multiple Vitamins W/ Minerals) 1 Tab Tab 1 Tab PO DAILY Arthritis Pain ER 8 HR (Acetaminophen) 650 Mg Tab 1,300 Mg PO Q8HR PRN Depakote ER (Divalproex Sodium) 250 Mg Sammie 750 Mg PO HS Zovirax (Acyclovir) 800 Mg Tab 800 Mg PO BID Morphine HAND INSPECTOR Inj (Morphine Sulfate) 30 Mg/30 Ml Vial Unknown Dose IV DIRECTED HAND INSPECTOR Levothyroxine (Levothyroxine Sodium) 75 Mcg Tab 75 Mcg PO DAILY Seroquel (Quetiapine Fumarate) 50 Mg Tab 50 Mg PO HS Effexor XR 24 HR (Venlafaxine HCl) 150 Mg Cap 150 Mg PO DAILY Depakote DR (Divalproex Sodium) 250 Mg Tabdr 250 Mg PO HS Review of Systems ROS Limitations: Clinical Condition, Altered Mental Status, Poor Historian Physical Exam Narrative GENERAL: Well-nourished, well-developed patient with bradycardia and hypotension and altered mental status SKIN: Warm and dry. HEAD: Atraumatic. Normocephalic. EYES: Pupils equal and round. No scleral icterus. No injection or drainage. ENT: No nasal bleeding or discharge. Mucous membranes pink and moist. NECK: Trachea midline. No JVD. CARDIOVASCULAR: Regular rate and rhythm. No murmur appreciated. Heart rate of approximately 40 RESPIRATORY: No accessory muscle use. Clear to auscultation. Breath sounds equal bilaterally. GASTROINTESTINAL: Abdomen soft, non-tender, nondistended. Hepatic and splenic margins not palpable. There are 2 implanted devices, one on each side of the lower abdomen MUSCULOSKELETAL: No obvious deformities. No clubbing. No cyanosis. No edema. NEUROLOGICAL: Very lethargic. No obvious cranial nerve deficits. Motor grossly within normal limits. Normal speech. PSYCHIATRIC: Very drowsy and lethargic mood and affect; insight and judgment poor. Data Data Last Documented VS Vital Signs Date Time Temp Pulse Resp B/P Pulse Ox O2 Delivery O2 Flow Rate FiO2 12/10/16 17:23 50 12/10/16 17:22 75 17 134/63 100 Ventilator 12/10/16 16:01 3.5 Orders Dopamine Inj Premix (Dopamine Inj Premix (12/10/16 15:28) Iv Access Insert/Monitor (12/10/16 15:37) Complete Blood Count With Diff (12/10/16 15:37) Basic Metabolic Panel (Bmp) (12/10/16 15:37) Chest, Single Ap (12/10/16 ) Ct Thorax/ Chest Wo Iv Contras (12/10/16 ) Electrocardiogram (12/10/16 ) [employer] / Telemetry CHUCKIE.Q8H (12/10/16 15:37) Dopamine Inj Premix (Dopamine Inj Premix (12/10/16 15:45) Terbutaline Inj (Brethine Inj) (12/10/16 15:45) Etomidate Inj (Amidate Inj) (12/10/16 16:04) Succinylcholine Inj (Quelicin Inj) (12/10/16 16:04) Chest, Single Ap (12/10/16 ) Alcohol (Ethanol) (12/10/16 16:19) Arterial Blood Gas (Abg) (12/10/16 ) Drug Screen, Random Urine (12/10/16 16:19) Valproic Acid (Depakene) (12/10/16 16:19) Salicylates (Aspirin) (12/10/16 16:19) Tylenol (Acetaminophen) (12/10/16 16:19) Ct Brain W/O Iv Contrast(Rout) (12/10/16 ) Urinary Catheter Insert/Apply (12/10/16 16:36) Sodium Chlor 0.9% 1000 Ml Inj (Ns 1000 M (12/10/16 16:45) I-Stat Creatinine (12/10/16 16:00) I-Stat Profile (12/10/16 16:00) Rocuronium Inj (Zemuron Inj) (12/10/16 17:00) Emir-Gastric Tube Insert/Mon (12/10/16 16:46) Restraints Non-Violent CHUCKIE.Q3H (12/10/16 16:46) Admit Order (Ed Use Only) (12/10/16 17:39) Labs Laboratory Tests Test 12/10/16 12/10/16 12/10/16 12/10/16 16:00 16:20 16:34 16:36 White Blood Count 12.7 TH/MM3 Red Blood Count 2.83 MIL/MM3 Hemoglobin 8.9 GM/DL Hematocrit 27.3 % Mean Corpuscular Volume 96.7 FL Mean Corpuscular Hemoglobin 31.5 PG Mean Corpuscular Hemoglobin 32.6 % Concent Red Cell Distribution Width 15.2 % Platelet Count 415 TH/MM3 Mean Platelet Volume 7.8 FL Neutrophils (%) (Auto) 74.1 % Lymphocytes (%) (Auto) 11.5 % Monocytes (%) (Auto) 9.1 % Eosinophils (%) (Auto) 4.6 % Basophils (%) (Auto) 0.7 % Neutrophils # (Auto) 9.4 TH/MM3 Lymphocytes # (Auto) 1.5 TH/MM3 Monocytes # (Auto) 1.2 TH/MM3 Eosinophils # (Auto) 0.6 TH/MM3 Basophils # (Auto) 0.1 TH/MM3 CBC Comment DIFF FINAL Differential Comment Urine Opiates Screen POS Urine Barbiturates Screen NEG Urine Amphetamines Screen NEG Urine Benzodiazepines Screen NEG Urine Cocaine Screen NEG Urine Cannabinoids Screen NEG Bedside Hemoglobin 10.2 G/DL Bedside Hematocrit 30.0 % Bedside Sodium 135 MMOL/L Sodium Level 136 MEQ/L Bedside Potassium 5.6 MMOL/L Potassium Level 5.6 MEQ/L Bedside Chloride 101 MMOL/L Chloride Level 102 MEQ/L Carbon Dioxide Level 26.8 MEQ/L Anion Gap 7 MEQ/L Bedside Blood Urea Nitrogen 34 MG/DL Blood Urea Nitrogen 27 MG/DL Creatinine 0.89 MG/DL Bedside Creatinine 0.8 MG/DL Estimat Glomerular Filtration 63 ML/MIN Rate Bedside Glucose 189 MG/DL Random Glucose 181 MG/DL Calcium Level 8.0 MG/DL Salicylates Level LESS THAN 1.7 MG/DL Blood Gas Puncture Site LT RADIAL Blood Gas Patient Temperature 98.6 Blood Gas HCO3 26 mmol/L Blood Gas Base Excess 1.1 mmol/L Blood Gas Oxygen Saturation 94 % Arterial Blood pH 7.35 Arterial Blood Partial 48 mmHg Pressure CO2 Arterial Blood Partial 83 mmHG Pressure O2 Arterial Blood Oxygen Content 12.1 Vol % Arterial Blood 1.4 % Carboxyhemoglobin Arterial Blood Methemoglobin 0.2 % Blood Gas Hemoglobin 9.1 G/DL Oxygen Delivery Device VENTILATOR Blood Gas Ventilator Setting PRVC/AC Blood Gas Inspired Oxygen 50 % Test 12/10/16 16:50 Acetaminophen Level 2.3 MCG/ML Valproic Acid (Depakene) Level 33 MCG/ML Ethyl Alcohol Level LESS THAN 3 MG/DL MDM Medical Decision Making Medical Screen Exam Complete: Yes Emergency Medical Condition: Yes Medical Record Reviewed: Yes Differential Diagnosis Critical bradycardia, cardiac arrhythmia, overmedication, medication side effect Narrative Course I have reviewed the patient's electronic medical record. Reviewed her most recent hospitalization where she was here for cardiac tamponade requiring pericardiocentesis This patient is critically ill. She is bradycardic and hypotensive with altered mental status. She does not have good airway control. She has minimal gag and is very drowsy and waxing and waning level of consciousness INTUBATION: The patient was put in optimal position for the procedure. Rapid sequence intubation was initiated by me using 20 milligrams of etomidate IV and 80 milligrams of succinylcholine IV. The patient was intubated with a 7.5 cuffed endotracheal tube. Tube placement was confirmed by visualization of the tube and balloon passing through the cords, capnometry and subsequent chest x- ray. Breath sounds were equal and well aerated bilaterally postintubation. No breath sounds over stomach. Patient tolerated procedure well. I gave her a milligram of IV atropine which was her second and neither did anything We attempted transcutaneous pacing This did not really work well so amperage was increased No satisfactory capture occurred up to 90 A so I initiated dopamine drip Spoke with senior it security analyst Dr. Jerry who emergently came down to the emergency room and evaluated this patient bedside. However by then the heart rate had come up to 60 and blood pressure now 110 systolic Patient has a vast polypharmacy situation going on. According to paramedics she is on a beta hunter and calcium hunter and amiodarone altogether She is also on many sedating medications including morphine pump. I would like to turn that off but don't know how to go about it. Her pain physician is unclear. It's not listed on all the records I can locate. She did deny overdose or overmedication on questioning prior to intubation but her history seems very unreliable. CBC shows minor leukocytosis and anemia of 8.9 hemoglobin Metabolic profile shows hyperkalemia 5.6 Alcohol level is negative Tox screen is positive for opiate Depakote level is 33 Tylenol is negligible Aspirin is negligible Chest CT was done to evaluate for pericardial effusion. There is minor 1 cm or less effusion. There is bilateral pleural effusion Brain CT is negative On reassessment patient's heart rate has been at 60 for an hour now. Blood pressure got up as high as 134 systolic. Dopamine drip has been weaned down a bit Case reviewed in detail with mud tank operator who will admit to intensive care Very complex case requiring a lot of bedside time and multiple re-evaluations Critical Care Narrative Aggregate critical care time was 85 minutes. Time to perform other separately billable procedures was not included in the critical care time. My time did not include minutes spent treating any other patients simultaneously or on activities that did not directly contribute to the patient's treatment. The services I provided to this patient were to treat and/or prevent clinically significant deterioration that could result in: Cardiac arrhythmia, cardiopulmonary arrest, cardiogenic shock, loss of airway I provided critical care services requiring my management, as noted below: Chart data review, documentation time, medication orders and management, vital sign assessments/reviewing monitor data, ordering and reviewing lab tests, ordering and interpreting/reviewing x-rays and diagnostic studies, care of the patient and discussion of the patient with the admitting physicians. Diagnosis Primary Impression: Toxic metabolic encephalopathy Additional Impressions: Bradycardia Hypotension Qualified Code: I95.9 - Hypotension, unspecified hypotension type Admitting Information Admitting Physician Requests: Thien Blanco MD Dec 10, 2016 16:32
--- NOTE | 2016-12-10 16:33 | MB ---
cc: RONEL MEMBRENO M.D., MATTHEW J. M.D. GOLDSMITH, ALAN S. M.D. DATE OF CONSULTATION: 12/10/2016. REASON FOR CONSULTATION: The patient is a 71-year-old white woman I am seeing for bradycardia and hypotension. HISTORY OF PRESENT ILLNESS: The patient within the last month underwent pericardial window for pericardial tamponade. The patient apparently was brought into the emergency room for increasing lethargy. PAST MEDICAL HISTORY: Her past medical history otherwise is remarkable for: 1. Bipolar disorder. 2. Hypothyroidism. 3. Tonsillectomy. 4. Hysterectomy. 5. Right hip muscle surgery. 6. Paroxysmal atrial fibrillation. 7. Chronic back pain with stimulator. 8. Morphine pump. ALLERGIES: 1. FELDENE. 2. FLEXERIL. 3. HYDROXYZINE. 4. LATEX. 5. PENICILLIN. 6. SULFA. 7. VISTARIL. The patient was initially hypotensive with a low heart rate in the 30s to 40s. She has been placed on dopamine and her heart rate is in the 60s but with borderline blood pressure. She is barely responsive and will be intubated. MEDICATIONS: Medications are numerous includin. Nadolol. 2. Amiodarone. 3. Diltiazem. 4. Acyclovir. 5. A number of psychiatric and pain medication drugs. SOCIAL HISTORY: Apparently she does not smoke or drink. REVIEW OF SYSTEMS: I cannot get a review of systems. PHYSICAL EXAMINATION: VITAL SIGNS: The vital signs are as above. GENERAL: She is barely responsive. CHEST: Clear. CARDIOVASCULAR: JVD normal. S1, S2 with a short 1/6 systolic ejection murmur at the base. ABDOMEN: Benign except for spinal stimulator and morphine pump. EXTREMITIES: No cyanosis, clubbing or edema. PULSES: Carotids without bruits. Radials 1+. Pedals 1+. ASSESSMENT AND PLAN: Radha is barely responsive with bradycardia. This is unlikely to be primarily a cardiac condition and I feel most likely this is medication-induced as she is on numerous medications which by themselves can cause bradycardia, hypotension and lethargy and may have some interactions. At this point in time I would recommend the followin. Support blood pressure with dopamine. 2. She will be admitted to the critical care service. 3. Intubation. 4. Hold all cardiac medication at this point in time and psychotropic medication. Dr. Membreno will assume cardiac care tomorrow. MD CATHERINE Warner/MAGAN /4:16 PM /4:28 PM JESSICA
--- NOTE | 2016-12-10 16:39 | RADRPT ---
EXAM DATE/TIME: 12/10/2016 16:26 [facility] COMPARISON: CHEST SINGLE AP, December 10, 2016, 15:52. INDICATIONS : Post intubation. Respiratory failure MEDICAL HISTORY : Hypertension. Cardiovascular disease. SURGICAL HISTORY : None. ENCOUNTER: Initial ACUITY: 1 day PAIN SCORE: Non-responsive. LOCATION: chest FINDINGS: A single AP supine view the chest was obtained and demonstrates interval placement of endotracheal tu be with tip at the level of thoracic inlet approximately 4 cm above the leonel. A nasogastric tube is seen coursing through the esophagus and the tip is located in the proximal stomach. Hazy perihilar a nd bibasilar opacities remain. The costophrenic angles appear mildly blunted. The heart size is enlar ged. There are multiple overlying electrocardiogram leads and oxygen tubing. The bony thorax appears intact. CONCLUSION: 1. Interval intubation and placement of nasogastric tube. The tip of the nasogastric tube lies in the proximal stomach and could be advanced several centimeters. 2. Mild cardiomegaly with hazy opacity in both lungs which may represent pulmonary edema. 3. Probable small effusions. Sergei Chowdhury MD on December 10, 2016 at 16:35 Board Certified Radiologist. This report was verified electronically.
[2016-12-10] MEDS ORDERED: SODIUM CHLOR 0.9% 1000 ML INJ 1,000 ML IV ONE (16:45)
[2016-12-10 16:54] LABS: I-STAT POTASSIUM 5.6 MMOL/L (3.5-4.9)
[2016-12-10 16:59] LABS: AUTOMATED NEUTROPHIL # 9.4 TH/MM3 (1.8-7.7); BASOPHIL # 0.1 TH/MM3 (0-0.2); BASOPHIL % 0.7 % (0.0-2.0); EOSINOPHIL # 0.6 TH/MM3 (0-0.4); EOSINOPHIL % 4.6 % (0.0-4.0); HEMATOCRIT 27.3 % (35.0-46.0); HEMO FLAGS DIFF FINAL; LYMPH % 11.5 % (9.0-44.0); LYMPHOCYTE # 1.5 TH/MM3 (1.0-4.8); MEAN CELL VOLUME 96.7 FL (80.0-100.0); MEAN CORPUSCULAR HEMOGLOBIN 31.5 PG (27.0-34.0); MEAN CORPUSCULAR HGB CONC 32.6 % (32.0-36.0); MONO % 9.1 % (0.0-8.0); NEUT % 74.1 % (16.0-70.0); PLATELET COUNT 415 TH/MM3 (150-450); RED BLOOD COUNT 2.83 MIL/MM3 (4.00-5.30); RED CELL DISTRIBUTION WIDTH 15.2 % (11.6-17.2); WHITE BLOOD COUNT 12.7 TH/MM3 (4.0-11.0)
[2016-12-10] MEDS ORDERED: ROCURONIUM INJ 50 MG/5 ML VIAL IV ONE (17:00)
[2016-12-10 17:14] LABS: BICARBONATE 26.8 MEQ/L (21.0-32.0)
[2016-12-10 17:14] LABS: ACETAMINOPHEN 2.3 MCG/ML (10.0-30.0)
--- NOTE | 2016-12-10 17:15 | RADRPT ---
EXAM DATE/TIME: 12/10/2016 16:56 [facility] COMPARISON: CT BRAIN W/O CONTRAST, February 22, 2016, 19:41. INDICATIONS : Altered mental status. RADIATION DOSE: 56.35 CTDIvol (mGy) MEDICAL HISTORY : Cardiovascular disease. Hypertension. SURGICAL HISTORY : Hysterectomy. ENCOUNTER: Initial ACUITY: 1 day PAIN SCALE: Non-responsive LOCATION: cranial TECHNIQUE: Multiple contiguous axial images were obtained of the head. Using automated exposure control and adj ustment of the mA and/or kV according to patient size, radiation dose was kept as low as reasonably a chievable to obtain optimal diagnostic quality images. FINDINGS: CEREBRUM: The ventricles are normal for age. No evidence of midline shift, mass lesion, hemorrhage or acute in farction. No extra-axial fluid collections are seen. POSTERIOR FOSSA: The cerebellum and brainstem are intact. The 4th ventricle is midline. The cerebellopontine angle i s unremarkable. EXTRACRANIAL: The visualized portion of the orbits is intact. SKULL: The calvaria is intact. No evidence of skull fracture. CONCLUSION: Unremarkable noncontrast CT. Sergei Chowdhury MD on December 10, 2016 at 17:13 Board Certified Radiologist. This report was verified electronically.
--- NOTE | 2016-12-10 17:18 | RADRPT ---
EXAM DATE/TIME: 12/10/2016 16:55 [facility] COMPARISON: CT THORAX W/O CONTRAST, November 16, 2016, 19:49. INDICATIONS : Evaluate for pericardial effusion. RADIATION DOSE: 5.10 CTDIvol (mGy) MEDICAL HISTORY : Cardiovascular disease. Hypertension. SURGICAL HISTORY : Hysterectomy. ENCOUNTER: Initial ACUITY: 1 day PAIN SCALE: Non-responsive LOCATION: chest TECHNIQUE: Volumetric scanning of the chest was performed. Using automated exposure control and adjustment of t he mA and/or kV according to patient size, radiation dose was kept as low as reasonably achievable to obtain optimal diagnostic quality images. FINDINGS: LUNGS: There is no pneumothorax. There is consolidation in both posterior lung bases with air bronchograms. No concerning pulmonary nodule is visualized. PLEURAE: There are small bilateral pleural effusions right greater than left. MEDIASTINUM: The heart and great vessels demonstrate no acute abnormality. There is no mediastinal or hilar lymph adenopathy. The heart size is moderately enlarged and there is small pericardial effusion. This measu res up to approximately 1 cm. AXILLAE: Within normal limits. No lymphadenopathy. MUSCULOSKELETAL: Within normal limits for patient age. MISCELLANEOUS: The visualized upper abdominal organs demonstrate no acute abnormality. Bilateral breast implants are again noted. An endotracheal tube and nasogastric tube are in place. CONCLUSION: 1. The heart size is moderately enlarged and there is a small pericardial effusion. This measures up to approximately 1 cm in thickness. 2. Multilevel pleural effusions right greater than left with consolidation in both posterior lung bas es. Sergei Chowdhury MD on December 10, 2016 at 17:13 Board Certified Radiologist. This report was verified electronically.
[2016-12-10 17:19] LABS: AMPHETAMINE, URINE NEG (NEG); BARBITURATES, URINE NEG (NEG); COCAINE, URINE NEG (NEG)
[2016-12-10 17:21] LABS: POTASSIUM 5.6 MEQ/L (3.5-5.1)
[2016-12-10] MEDS ORDERED: ACET5TAB2 PO (17:25)
[2016-12-10] MEDS ORDERED: IBUP200C PO (17:25)
[2016-12-10] MEDS ORDERED: BENZ100 PO (17:25)
[2016-12-10] MEDS ORDERED: MULT1TAB PO (17:25)
[2016-12-10] MEDS ORDERED: [UNRECOGNIZED DRUG - CODE] PO (17:25)
[2016-12-10] MEDS ORDERED: DIVA250ER PO (17:25)
[2016-12-10] MEDS ORDERED: FEXO180T PO (17:25)
[2016-12-10] MEDS ORDERED: FURO1TAB62 PO (17:25)
[2016-12-10] MEDS ORDERED: PACE200T PO (17:25)
[2016-12-10] MEDS ORDERED: BIOT50005 PO (17:25)
[2016-12-10 17:30] LABS: BLOOD GAS BASE EXCESS 1.1 mmol/L (-2-2); BLOOD GAS CARBOXYHEMOGLOBIN 1.4 % (0-4); BLOOD GAS HCO3 26 mmol/L (22-26); BLOOD GAS METHEMOGLOBIN 0.2 % (0-2); BLOOD GAS O2 HGB SATURATION 94 % (90-100); BLOOD GAS OXYGEN CONTENT 12.1 Vol % (12.0-20.0); BLOOD GAS PCO2 48 mmHg (38-42); BLOOD GAS PO2 83 mmHG (61-120); BLOOD GAS TOTAL HGB 9.1 G/DL (12.0-16.0); CRITICAL VALUE NO; OXYGEN DEVICE VENTILATOR; TEMP CORR TO 98.6
[2016-12-10 17:31] LABS: DRAW SITE LT RADIAL; FIO2 50 %; NUMBER OF ARTERIAL PUNCTURES 1; STAT YES; ULNAR PULSE PRESENT; VENT SETTINGS PRVC/AC
[2016-12-10] MEDS ORDERED: SODIUM CHLOR 0.9% 1000 ML INJ 1,000 ML IV SCH (17:55)
--- NOTE | 2016-12-10 17:56 | HHI.HP ---
[facility] Service Critical Care Medicine Primary Care Physician Unknown Admission Diagnosis bradycardia,hypotension,AMS Diagnosis: (1) Bradycardia Diagnosis: Principal (2) Toxic metabolic encephalopathy Diagnosis: Principal (3) s/p pericardial window Diagnosis: Principal (4) Asthmatic bronchitis , chronic Diagnosis: Principal (5) Bipolar 1 disorder Diagnosis: Principal (6) Anemia Diagnosis: Principal (7) Cervical radiculopathy, chronic Diagnosis: Principal (8) Respiratory failure Diagnosis: Principal (9) Hypotension Diagnosis: Principal (10) Hyperkalemia Chief Complaint: Presents from home by EMS with altered mental status, bradycardia unresponsive to atropine Travel History International Travel<30 Days: No Contact w/Intl Traveler <30 Da: No Traveled to Known Affected Are: No History of Present Illness 71-year-old female. Date of admission 12/10/2016. 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 She had an open pericardial window by Dr. Anisha Fox removing 400 cc D bloody fluid negative cytology. Postoperative course was consulted by atrial fibrillation requiring amiodarone and Cardizem which was sent home on. Is possible she was also on a beta hunter. She also had a thoracentesis by Dr. Mason 750 cc left -sided. She presents to [facility] from home with altered mental status. She is noted to be hypotensive, bradycardic and minimally responsive. She was given 1 dose of atropine in route/1 mg without result. Pacer pads are placed without result. Patient was emergently intubated with 20 mg etomidate and 80 mg succinylcholine using a 7.5 ET tube. Resulting imaging revealed CT chest small pericardial effusion by 1 cm without tamponade features. CT head unremarkable. Dr. Jerry/cardiology saw the patient. Believe this is from polypharmacy. Recommend holding all her cardiac medications psychiatric overnight. Start patient on dopamine drip which is currently 15 mg/kg/m and patient be seen in a[facility] [place] cardiology. Review of Systems ROS Limitations: Intubated Past Family Social History Allergies: Coded Allergies: Penicillin (Verified Allergy, Severe, hives, 12/10/16) Sulfa (Verified Allergy, Severe, hives, 12/10/16) Latex (Verified Allergy, Intermediate, rash, 12/10/16) Feldene (Verified Allergy, Unknown, 12/10/16) Hydroxyzine (Verified Allergy, Unknown, 12/10/16) Flexeril (Unverified Adverse Reaction, Intermediate, PAU, 12/10/16) Vistaril (Unverified Adverse Reaction, Unknown, 12/10/16) Past Medical History Bipolar disorder Mitral valve prolapse Organizing fibroid pericarditis Allergic rhinitis Chronic acetaminophen use Bilateral sciatica and spinal stenosis Left arm numbness Mild intermittent asthma Anxiety Chronic headaches Osteoarthritis Hypothyroidism Depression Hormone replacement therapy HSV Insomnia Constipation Past Surgical History Spinal CORD stimulating leads and generator/TENS BCC removed from right ear Hysterectomy Tonsillectomy Morphine pump placement Pericardiocentesis Pericardial window Thoracentesis Bilateral breast implants Lumbar fusion? Reported Medications Active Potassium Chloride ER (Potassium Chloride) 10 Meq Cap 10 Meq PO DAILY Cardizem (Diltiazem HCl) 60 Mg Tab 60 Mg PO Q6HR 30 Days Aspirin EC (Aspirin) 81 Mg Tabdr 81 Mg PO DAILY 30 Days Klonopin (Clonazepam) 0.5 Mg Tab 0.5 Mg PO BID Reported Tessalon Perles (Benzonatate) 100 Mg Cap 100-200 Mg PO TID PRN Lasix (Furosemide) 20 Mg Tab 20 Mg PO BID Pacerone (Amiodarone HCl) 200 Mg Tab 200 Mg PO DAILY Fexofenadine (Fexofenadine HCl) 180 Mg Tab 180 Mg PO DAILY PRN Biotin 5,000 Mcg Cap 5,000 Mcg PO DAILY Gas-X Prevention (Bnjio-W-Yqkjoprfhdfev) 1 Cap 1 Cap PO DAILY PRN Ibuprofen 200 Mg Cap 200 Mg PO Q4-6H PRN Centrum Silver Adult 50+ (Multiple Vitamins W/ Minerals) 1 Tab Tab 1 Tab PO DAILY Arthritis Pain ER 8 HR (Acetaminophen) 650 Mg Tab 1,300 Mg PO Q8HR PRN Depakote ER (Divalproex Sodium) 250 Mg Sammie 750 Mg PO HS Zovirax (Acyclovir) 800 Mg Tab 800 Mg PO BID Morphine MARKETING OFFICER Inj (Morphine Sulfate) 30 Mg/30 Ml Vial Unknown Dose IV DIRECTED MARKETING OFFICER Levothyroxine (Levothyroxine Sodium) 75 Mcg Tab 75 Mcg PO DAILY Seroquel (Quetiapine Fumarate) 50 Mg Tab 50 Mg PO HS Effexor XR 24 HR (Venlafaxine HCl) 150 Mg Cap 150 Mg PO DAILY Depakote DR (Divalproex Sodium) 250 Mg Tabdr 250 Mg PO HS Active Ordered Medications Reviewed in EMR Family History Mother with history of hypertension. Positive for CVA, GA and asthma. Social History No documentation tobacco alcohol or drug use Physical Exam Vital Signs Vital Signs Date Time Temp Pulse Resp B/P Pulse Ox O2 Delivery O2 Flow Rate FiO2 12/10/16 17:23 50 12/10/16 17:22 75 17 134/63 100 Ventilator 50 12/10/16 16:50 100 100 12/10/16 16:21 58 15 111/56 100 Ventilator 50 12/10/16 16:20 100 50 12/10/16 16:14 59 12 113/53 100 Ventilator 50 12/10/16 16:01 59 18 93/51 93 Nasal Cannula 3.5 12/10/16 15:40 45 14 102/53 96 Nasal Cannula 2 12/10/16 15:26 44 16 102/53 99 Nasal Cannula 2 12/10/16 15:09 47 12 119/52 95 Physical Exam GENERAL: 71-year-old female, critically ill currently orotracheally intubated SKIN: Warm and dry. Site of pericardial window without erythema or drainage HEAD: Atraumatic. Normocephalic. EYES: Pupils equal and round by 3 mm bilaterally and reactive. No scleral icterus. No injection or drainage. ENT: No nasal bleeding or discharge. Mucous membranes pink and moist. NECK: Trachea midline. No JVD. CARDIOVASCULAR: Regular rate and rhythm. S1, S2. No S4. No rub RESPIRATORY: Clear to auscultation. Breath sounds equal bilaterally. GASTROINTESTINAL: Abdomen soft, non-tender, nondistended. Hypoactive bowel sounds are appreciated. MUSCULOSKELETAL: Extremities without skin peripheral edema. No obvious deformities. NEUROLOGICAL: Sedated on the ventilator. Positive gag. Positive corneal reflex. Withdraws to pain in all 4 extremities. Laboratory Laboratory Tests Test 12/10/16 12/10/16 12/10/16 12/10/16 16:00 16:20 16:34 16:36 White Blood Count 12.7 Red Blood Count 2.83 Hemoglobin 8.9 Hematocrit 27.3 Mean Corpuscular Volume 96.7 Mean Corpuscular Hemoglobin 31.5 Mean Corpuscular Hemoglobin 32.6 Concent Red Cell Distribution Width 15.2 Platelet Count 415 Mean Platelet Volume 7.8 Neutrophils (%) (Auto) 74.1 Lymphocytes (%) (Auto) 11.5 Monocytes (%) (Auto) 9.1 Eosinophils (%) (Auto) 4.6 Basophils (%) (Auto) 0.7 Neutrophils # (Auto) 9.4 Lymphocytes # (Auto) 1.5 Monocytes # (Auto) 1.2 Eosinophils # (Auto) 0.6 Basophils # (Auto) 0.1 CBC Comment DIFF FINAL Differential Comment Urine Opiates Screen POS Urine Barbiturates Screen NEG Urine Amphetamines Screen NEG Urine Benzodiazepines Screen NEG Urine Cocaine Screen NEG Urine Cannabinoids Screen NEG Bedside Hemoglobin 10.2 Bedside Hematocrit 30.0 Bedside Sodium 135 Sodium Level 136 Bedside Potassium 5.6 Potassium Level 5.6 Bedside Chloride 101 Chloride Level 102 Carbon Dioxide Level 26.8 Anion Gap 7 Bedside Blood Urea Nitrogen 34 Blood Urea Nitrogen 27 Creatinine 0.89 Bedside Creatinine 0.8 Estimat Glomerular Filtration 63 Rate Bedside Glucose 189 Random Glucose 181 Calcium Level 8.0 Salicylates Level LESS THAN 1.7 Blood Gas Puncture Site LT RADIAL Blood Gas Patient Temperature 98.6 Blood Gas HCO3 26 Blood Gas Base Excess 1.1 Blood Gas Oxygen Saturation 94 Arterial Blood pH 7.35 Arterial Blood Partial 48 Pressure CO2 Arterial Blood Partial 83 Pressure O2 Arterial Blood Oxygen Content 12.1 Arterial Blood 1.4 Carboxyhemoglobin Arterial Blood Methemoglobin 0.2 Blood Gas Hemoglobin 9.1 Oxygen Delivery Device VENTILATOR Blood Gas Ventilator Setting PRVC/AC Blood Gas Inspired Oxygen 50 Test 12/10/16 16:50 Acetaminophen Level 2.3 Valproic Acid (Depakene) Level 33 Ethyl Alcohol Level LESS THAN 3 Result Diagram: 12/10/16 1600 12/10/16 1634 Imaging Last Impressions Head CT 12/10/16 0000 Signed Impressions: Service Date/Time: Saturday, December 10, 2016 16:56 - CONCLUSION: Unremarkable noncontrast CT. Sergei Chowdhury MD Chest X-Ray 12/10/16 0000 Signed Impressions: Service Date/Time: Saturday, December 10, 2016 16:26 - CONCLUSION: 1. Interval intubation and placement of nasogastric tube. The tip of the nasogastric tube lies in the proximal stomach and could be advanced several centimeters. 2. Mild cardiomegaly with hazy opacity in both lungs which may represent pulmonary edema. 3. Probable small effusions. Sergei Chowdhury MD Chest CT 12/10/16 0000 Signed Impressions: Service Date/Time: Saturday, December 10, 2016 16:55 - CONCLUSION: 1. The heart size is moderately enlarged and there is a small pericardial effusion. This measures up to approximately 1 cm in thickness. 2. Multilevel pleural effusions right greater than left with consolidation in both posterior lung bases. Sergei Chowdhury MD Assessment and Plan Assessment and Plan Neuro/Psych: Acute encephalopathy Bipolar disorder History of sciatica History of implanted morphine pump - managed by Dr. Duncan Currently on Versed/fentanyl drips for sedation/analgesia while intubated Goal of RA SS -[address] showed no acute intracranial findings Currently holding Depakote either 750-250 mg at night. Depakote level was 33.8 in ED. Holding Chayo 180 mg daily as needed for allergies Holding acetaminophen/ibuprofen for migraine headaches. Holding Effexor 150 mg by mouth daily. Holding Seroquel 50 mg daily light of potential QT prolongation Holding Klonopin 2.5 mg daily you noticed causes tachycardia CV: Symptomatically bradycardia - likely medication induced History of organizing fibrinous pericarditis Mitral valve prolapse History of atrial fibrillation Small pericardial effusion Evaluated by Dr. Jerry/cardiology. Recommended's holding amiodarone, Cardizem, beta hunter and psychiatric medications. Reassess in a.m. Will follow CT revealed 1 cm small pericardial effusion without tamponade features Hold amiodarone 200 mg by mouth daily and Cardizem 60 mg by mouth every 6 hours See above for psychiatric medicine been held Currently on dopamine drip at 15 mcg/kg/m. Heart rate currently in the 60s Resp: Acute hypoxemic respiratory failure History of mild intermittent asthma Small bilateral pleural effusions PRVC 18/500/1/5/50 Ventilator bundle Bronchodilator therapy every 6 hours and as needed Spontaneous breathing trials when clinically indicated CT thorax revealed 1 cm small pericardial effusion. Otherwise unremarkable GI: Patient is currently nothing by mouth. OG tube to low intermittent wall suction Protonix for GI prophylaxis Colace/as needed Senokot for bowel regimen : Lindo will be placed for accurate I's and O's in a critically ill patient Endo: Likely hyperglycemia of critical illness Hypothyroidism Continue Levoxyl 75 mics grams by mouth daily. Check TSH in the interim. Sliding-scale insulin with Accu-Cheks to maintain euglycemia. Renal: Currently on normal saline at 84 cc an hour. Accurate I's and O's Monitor urine output BMP in a.m. Heme: Leukocytosis Normocytic anemia Monitor CBC/CMP daily. Monitor trends Coags currently pending ID: History of HSV suppression with Zovirax 800 mg twice a day Holding Zovirax currently. Resume when clinically indicated FEN: Hyperkalemia Replace electrolytes as clinically indicated per ICU left leg protocol Calcium gluconate, D50/insulin/Kayexalate/bicarbonate 1 now. Recheck in 3 hours. MSK: PT evaluate and treat Access -Day 1 left IJ CVL. Prophylaxis - GI - Protonix - DVT - SCDs/heparin subcutaneous Critical Care: The total critical care time was 65 minutes. Time to perform other separately billable procedures was not included in the critical care time. Code Status Full code Discussed Condition With ED physician. Dr. Jerry. I discussed and all questions answered. Problem Qualifiers (1) Anemia: Qualified Code: D64.9 - Anemia, unspecified type (2) Respiratory failure: Qualified Code: J96.01 - Acute respiratory failure with hypoxia (3) Hypotension: Qualified Code: I95.9 - Hypotension, unspecified hypotension type Alistair Serrano MD Dec 10, 2016 17:55
[2016-12-10] MEDS ORDERED: MISCELLANEOUS NURSING INFORMATION XX SCH (18:00)
[2016-12-10] MEDS ORDERED: fentaNYL DRIP 250 ML IV SCH ×2 (18:00→18:15)
[2016-12-10] MEDS ORDERED: CHLORHEXIDINE GLUCONATE 2 % 1 PACK (2 CLOTHS) TOP PRN (18:00)
[2016-12-10] MEDS ORDERED: MIDAZOLAM 100 MG/ML INJ 100 ML IV SCH (18:00)
[2016-12-10] MEDS ORDERED: SODIUM CHLORIDE 0.9% FLUSH 5 ML FLUSH IV FLUSH PRN (18:00)
[2016-12-10] MEDS: ARTIFICIAL TEARS OPTH SOLN 15 ML BTL EACH EYE SCH (18:00)
[2016-12-10] MEDS ORDERED: RESP: ALBUTEROL 2.5 MG/3 ML NEB (PRN) INH (18:00)
[2016-12-10] MEDS ORDERED: SENNOSIDES SYRUP 8.8 MG/5 ML CUP G-TUBE PRN (18:00)
[2016-12-10] MEDS ORDERED: PROPOFOL 1000 MG/100 ML INJ 100 ML IV SCH (18:15)
[2016-12-10] MEDS ORDERED: fentaNYL DRIP 250 ML ONE (18:20)
[2016-12-10] MEDS ORDERED: MIDAZOLAM 100 MG/ML INJ 100 ML ONE (18:21)
--- NOTE | 2016-12-10 18:56 | PD.PROCEDR ---
Central Line Procedure REASON FOR PROCEDURE Central venous access PROCEDURE PERFORMED Central line placement: Left internal jugular vein CONSENT Informed consent for procedure was obtained. The risks and benefits of the procedure were discussed to include but limited to bleeding, clot formation, infection, and even . ANESTHESIA Local injection of 1% Lidocaine DESCRIPTION OF THE PROCEDURE The patient was placed in supine, mild Trendelenburg position. The area was exposed and cleansed with ChloraPrep, times two. Large sterile drape was used to cover the patient, with the site exposed, under sterile conditions including cap, face mask, sterile gown, and sterile gloves. On single attempt, the introducer needle was inserted with negative pressure in syringe and venous flash was obtained. The guide wire was then advanced without any restriction and the needle was removed. The dilator was used without any complications. Using Seldinger technique the triple-lumen catheter was advanced over the guide wire to a depth of 20 centimeters. The guide wire was removed. All ports were aspirated with dark venous blood return and flushed easily with sterile saline. All ports were capped. Antibiotic disc was placed around central line at puncture site. The central line was secured to the skin with two interrupted 2.0 silk sutures. The area was bandaged with sterile see-through central line bandage. RADIOLOGICAL DATA Ultrasound guidance was used to locate left internal jugular vein. Doppler/ color flow was used to confirm venous flow. COMPLICATIONS: No apparent complications ESTIMATED BLOOD LOSS: Less than 1 cc. Alistair Serrano MD Dec 10, 2016 18:56
[2016-12-10] MEDS ORDERED: SODIUM CHLORIDE 0.9% FLUSH 5 ML FLUSH IVF PRN (19:00)
--- NOTE | 2016-12-10 19:16 | RADRPT ---
EXAM DATE/TIME: 12/10/2016 18:56 [facility] COMPARISON: CHEST SINGLE AP, December 10, 2016, 16:26. INDICATIONS : Central line placement. MEDICAL HISTORY : None. SURGICAL HISTORY : None. ENCOUNTER: Subsequent ACUITY: 1 day PAIN SCORE: Non-responsive. LOCATION: Bilateral chest FINDINGS: A single AP supine view of the chest was obtained and demonstrates interval placement of a left inter nal jugular central venous line with the tip projected over the superior vena cava. There is no pneum othorax. Hazy opacity remains in both lung bases. Endotracheal tube remains in place with the tip jake roximately 4 cm above the leonel. The heart size is mildly prominent. CONCLUSION: 1. Interval placement of left internal jugular central venous line with no evidence of pneumothorax. 2. Hazy infiltrate remains at both lung bases. Sergei Chowdhury MD on December 10, 2016 at 19:14 Board Certified Radiologist. This report was verified electronically.
[2016-12-10] MEDS ORDERED: CALCIUM GLUCONATE 10% 1 GM/10 ML VIAL SLOW IVP ONE (22:45)
[2016-12-10] MEDS ORDERED: INSULIN HUMAN REGULAR 1,000 UNITS/10 ML VIAL IV PUSH ONE (22:45)
[2016-12-10] MEDS ORDERED: DEXTROSE 50% IN WATER 50 ML VIAL(D50) IV PUSH ONE (22:45)
[2016-12-10] MEDS ORDERED: SODIUM BICARBONATE 8.4% SOLN 50 MEQ/50 ML VIAL SLOW IVP ONE (22:45)
[2016-12-10] MEDS ORDERED: SODIUM POLYSTYRENE SULFONATE SUSP 15 GM/60 ML CUP PO ONE (22:45)
[2016-12-10] MEDS: HEPARIN SODIUM - SQ 10,000 UNITS/ML VIAL SQ SCH (23:17)
[2016-12-10 23:45] LABS: ALT (GPT) 15 U/L (10-53); ANION GAP 9 MEQ/L (5-15); AST (GOT) 13 U/L (15-37); BLOOD UREA NITROGEN 22 MG/DL (7-18); CHLORIDE 99 MEQ/L (98-107); GLOMERULAR FILTRATION RATE 103 ML/MIN (>89); MAGNESIUM 1.9 MG/DL (1.5-2.5); POTASSIUM 4.2 MEQ/L (3.5-5.1); SODIUM (NA) 138 MEQ/L (136-145)
[2016-12-10 23:55] LABS: ALKALINE PHOSPHATASE 67 U/L (45-117); TOTAL BILIRUBIN ADULT 0.3 MG/DL (0.2-1.0)
[2016-12-11] VITALS (18 sets, daily range): BP systolic 107–168; BP diastolic 55–77; PULSE 72–86; RESP 18–22; TEMP 97–99; O2SAT 93–100
[2016-12-11 00:01] LABS: CREATINE KINASE 50 U/L (26-192)
[2016-12-11] MEDS ORDERED: DEXTROSE 50% IN WATER 50 ML VIAL(D50) IV PUSH ONE (02:45)
[2016-12-11] MEDS: CHLORHEXIDINE GLUCONATE 2 % 1 PACK (2 CLOTHS) TOP SCH (04:00)
[2016-12-11] MEDS: RESP: ALBUTEROL 2.5 MG/IPRATROPIUM 0.5 MG NEB (SCH) INH ×4 (04:17→20:16)
[2016-12-11 04:37] LABS: AUTOMATED NEUTROPHIL # 13.8 TH/MM3 (1.8-7.7); BASOPHIL # 0.1 TH/MM3 (0-0.2); BASOPHIL % 0.6 % (0.0-2.0); EOSINOPHIL # 0.3 TH/MM3 (0-0.4); EOSINOPHIL % 2.2 % (0.0-4.0); HEMATOCRIT 28.4 % (35.0-46.0); HEMO FLAGS DIFF FINAL; LYMPH % 5.7 % (9.0-44.0); LYMPHOCYTE # 0.9 TH/MM3 (1.0-4.8); MEAN CELL VOLUME 93.9 FL (80.0-100.0); MEAN CORPUSCULAR HEMOGLOBIN 31.6 PG (27.0-34.0); MEAN CORPUSCULAR HGB CONC 33.6 % (32.0-36.0); MONO % 3.5 % (0.0-8.0); PLATELET COUNT 493 TH/MM3 (150-450); RED BLOOD COUNT 3.02 MIL/MM3 (4.00-5.30); RED CELL DISTRIBUTION WIDTH 14.8 % (11.6-17.2); WHITE BLOOD COUNT 15.7 TH/MM3 (4.0-11.0)
[2016-12-11] MEDS: DEXTROSE 10% INJ 1,000 ML IV SCH (04:39)
[2016-12-11 04:49] LABS: APTT (PATIENT) 28.8 SEC (24.3-30.1); PROTHROMBIN TIME - PATIENT 10.7 SEC (9.8-11.6)
--- NOTE | 2016-12-11 04:50 | RADRPT ---
EXAM DATE/TIME: 12/11/2016 03:11 [facility] COMPARISON: CHEST SINGLE AP, December 10, 2016, 18:56. INDICATIONS : Shortness of breath, possible pulmonary disease. MEDICAL HISTORY : None. SURGICAL HISTORY : None. ENCOUNTER: Subsequent ACUITY: 2 days PAIN SCORE: Non-responsive. LOCATION: Bilateral chest FINDINGS: Bilateral effusions and basilar airspace disease, endotracheal tube and left jugular line again noted . Spinal stimulator lead EKG leads are present. NG tube in satisfactory position. CONCLUSION: No significant change has occurred. Loc Brooks MD on December 11, 2016 at 4:48 Board Certified Radiologist. This report was verified electronically.
[2016-12-11 05:03] LABS: ALT (GPT) 12 U/L (10-53); ANION GAP 9 MEQ/L (5-15); AST (GOT) 11 U/L (15-37); BICARBONATE 29.5 MEQ/L (21.0-32.0); BLOOD UREA NITROGEN 19 MG/DL (7-18); CHLORIDE 99 MEQ/L (98-107); GLOMERULAR FILTRATION RATE 99 ML/MIN (>89); MAGNESIUM 1.8 MG/DL (1.5-2.5); POTASSIUM 3.8 MEQ/L (3.5-5.1); SODIUM (NA) 137 MEQ/L (136-145)
[2016-12-11 05:07] LABS: ALKALINE PHOSPHATASE 66 U/L (45-117); TOTAL BILIRUBIN ADULT 0.2 MG/DL (0.2-1.0)
[2016-12-11] MEDS: LEVOTHYROXINE SODIUM 75 MCG TAB PO SCH (06:09)
[2016-12-11] MEDS: DOPamine INJ PREMIX 500 ML IV SCH (06:10)
[2016-12-11] MEDS ORDERED: DEXTROSE 50% IN WATER 50 ML VIAL(D50) IV PUSH PRN (07:30)
[2016-12-11] MEDS ORDERED: GLUCAGON 1 MG/ML VIAL OTHER PRN (07:30)
--- NOTE | 2016-12-11 07:32 | HHI.CCPN ---
Subjective Remarks/Hospital Course 71-year-old female. Date of admission 12/10/2016. 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 She had an open pericardial window by Dr. Anisha Fox removing 400 cc D bloody fluid negative cytology. Postoperative course was consulted by atrial fibrillation requiring amiodarone and Cardizem which was sent home on. Is possible she was also on a beta hunter. She also had a thoracentesis by Dr. Mason 750 cc left -sided. She presents to [facility] from home with altered mental status. She is noted to be hypotensive, bradycardic and minimally responsive. She was given 1 dose of atropine in route/1 mg without result. Pacer pads are placed without result. Patient was emergently intubated with 20 mg etomidate and 80 mg succinylcholine using a 7.5 ET tube. Resulting imaging revealed CT chest small pericardial effusion by 1 cm without tamponade features. CT head unremarkable. Dr. Jerry/cardiology saw the patient. Believe this is from polypharmacy. Recommend holding all her cardiac medications psychiatric overnight. Start patient on dopamine drip which is currently 15 mg/kg/m and patient be seen in a[facility]. 12/11 Patient is sedated with Fentanyl and Versed and intubated. On Dopamine 12 mics. Afebrile. Objective Vital Signs Date Time Temp Pulse Resp B/P Pulse Ox O2 Delivery O2 Flow Rate FiO2 12/11/16 04:18 100 50 12/11/16 00:00 76 12/10/16 20:15 97.6 18 167/75 12/10/16 19:10 Auto-Vent 12/10/16 16:01 3.5 Intake and Output 12/10/16 12/10/16 12/11/16 08:00 16:00 00:00 Intake Total 735 ml Output Total 2250 ml Balance -1515 ml Result Diagram: 12/11/16 0430 12/11/16 0430 Other Results Laboratory Tests Test 12/10/16 12/10/16 12/10/16 12/10/16 16:00 16:20 16:34 16:36 White Blood Count 12.7 TH/MM3 Red Blood Count 2.83 MIL/MM3 Hemoglobin 8.9 GM/DL Hematocrit 27.3 % Mean Corpuscular Volume 96.7 FL Mean Corpuscular Hemoglobin 31.5 PG Mean Corpuscular Hemoglobin 32.6 % Concent Red Cell Distribution Width 15.2 % Platelet Count 415 TH/MM3 Mean Platelet Volume 7.8 FL Neutrophils (%) (Auto) 74.1 % Lymphocytes (%) (Auto) 11.5 % Monocytes (%) (Auto) 9.1 % Eosinophils (%) (Auto) 4.6 % Basophils (%) (Auto) 0.7 % Neutrophils # (Auto) 9.4 TH/MM3 Lymphocytes # (Auto) 1.5 TH/MM3 Monocytes # (Auto) 1.2 TH/MM3 Eosinophils # (Auto) 0.6 TH/MM3 Basophils # (Auto) 0.1 TH/MM3 CBC Comment DIFF FINAL Differential Comment Urine Opiates Screen POS Urine Barbiturates Screen NEG Urine Amphetamines Screen NEG Urine Benzodiazepines Screen NEG Urine Cocaine Screen NEG Urine Cannabinoids Screen NEG Bedside Hemoglobin 10.2 G/DL Bedside Hematocrit 30.0 % Bedside Sodium 135 MMOL/L Sodium Level 136 MEQ/L Bedside Potassium 5.6 MMOL/L Potassium Level 5.6 MEQ/L Bedside Chloride 101 MMOL/L Chloride Level 102 MEQ/L Carbon Dioxide Level 26.8 MEQ/L Anion Gap 7 MEQ/L Bedside Blood Urea Nitrogen 34 MG/DL Blood Urea Nitrogen 27 MG/DL Creatinine 0.89 MG/DL Bedside Creatinine 0.8 MG/DL Estimat Glomerular Filtration 63 ML/MIN Rate Bedside Glucose 189 MG/DL Random Glucose 181 MG/DL Calcium Level 8.0 MG/DL Troponin I LESS THAN 0.02 NG/ML Salicylates Level LESS THAN 1.7 MG/DL Blood Gas Puncture Site LT RADIAL Blood Gas Patient Temperature 98.6 Blood Gas HCO3 26 mmol/L Blood Gas Base Excess 1.1 mmol/L Blood Gas Oxygen Saturation 94 % Arterial Blood pH 7.35 Arterial Blood Partial 48 mmHg Pressure CO2 Arterial Blood Partial 83 mmHG Pressure O2 Arterial Blood Oxygen Content 12.1 Vol % Arterial Blood 1.4 % Carboxyhemoglobin Arterial Blood Methemoglobin 0.2 % Blood Gas Hemoglobin 9.1 G/DL Oxygen Delivery Device VENTILATOR Blood Gas Ventilator Setting PRVC/AC Blood Gas Inspired Oxygen 50 % Test 12/10/16 12/10/16 12/10/16 12/11/16 16:50 20:30 23:00 01:45 Acetaminophen Level 2.3 MCG/ML Valproic Acid (Depakene) Level 33 MCG/ML Ethyl Alcohol Level LESS THAN 3 MG/DL Nasal Screen MRSA (PCR) NEGATIVE Lactic Acid Level 0.5 mmol/L Sodium Level 138 MEQ/L Potassium Level 4.2 MEQ/L 3.9 MEQ/L Chloride Level 99 MEQ/L Carbon Dioxide Level 30.0 MEQ/L Anion Gap 9 MEQ/L Blood Urea Nitrogen 22 MG/DL Creatinine 0.58 MG/DL Estimat Glomerular Filtration 103 ML/MIN Rate Random Glucose 112 MG/DL Calcium Level 8.5 MG/DL Magnesium Level 1.9 MG/DL Total Bilirubin 0.3 MG/DL Aspartate Amino Transf 13 U/L (AST/SGOT) Alanine Aminotransferase 15 U/L (ALT/SGPT) Alkaline Phosphatase 67 U/L Total Creatine Kinase 50 U/L Troponin I LESS THAN 0.02 NG/ML Total Protein 7.5 GM/DL Albumin 2.4 GM/DL Thyroid Stimulating Hormone 1.370 uIU/ML 3rd Gen Phenytoin (Dilantin) Level LESS THAN 0.4 MCG/ML Test 12/11/16 04:30 White Blood Count 15.7 TH/MM3 Red Blood Count 3.02 MIL/MM3 Hemoglobin 9.5 GM/DL Hematocrit 28.4 % Mean Corpuscular Volume 93.9 FL Mean Corpuscular Hemoglobin 31.6 PG Mean Corpuscular Hemoglobin 33.6 % Concent Red Cell Distribution Width 14.8 % Platelet Count 493 TH/MM3 Mean Platelet Volume 6.6 FL Neutrophils (%) (Auto) 88.0 % Lymphocytes (%) (Auto) 5.7 % Monocytes (%) (Auto) 3.5 % Eosinophils (%) (Auto) 2.2 % Basophils (%) (Auto) 0.6 % Neutrophils # (Auto) 13.8 TH/MM3 Lymphocytes # (Auto) 0.9 TH/MM3 Monocytes # (Auto) 0.6 TH/MM3 Eosinophils # (Auto) 0.3 TH/MM3 Basophils # (Auto) 0.1 TH/MM3 CBC Comment DIFF FINAL Differential Comment Prothrombin Time 10.7 SEC Prothromb Time International 1.0 RATIO Ratio Activated Partial 28.8 SEC Thromboplast Time Sodium Level 137 MEQ/L Potassium Level 3.8 MEQ/L Chloride Level 99 MEQ/L Carbon Dioxide Level 29.5 MEQ/L Anion Gap 9 MEQ/L Blood Urea Nitrogen 19 MG/DL Creatinine 0.60 MG/DL Estimat Glomerular Filtration 99 ML/MIN Rate Random Glucose 154 MG/DL Lactic Acid Level 1.0 mmol/L Calcium Level 8.7 MG/DL Phosphorus Level 2.7 MG/DL Magnesium Level 1.8 MG/DL Total Bilirubin 0.2 MG/DL Aspartate Amino Transf 11 U/L (AST/SGOT) Alanine Aminotransferase 12 U/L (ALT/SGPT) Alkaline Phosphatase 66 U/L Troponin I LESS THAN 0.02 NG/ML Total Protein 7.0 GM/DL Albumin 2.2 GM/DL Imaging Last Impressions Chest X-Ray 12/11/16 0600 Signed Impressions: Service Date/Time: Sunday, December 11, 2016 03:11 - CONCLUSION: No significant change has occurred. Loc Brooks MD Head CT 12/10/16 0000 Signed Impressions: Service Date/Time: Saturday, December 10, 2016 16:56 - CONCLUSION: Unremarkable noncontrast CT. Sergei Chowdhury MD Chest CT 12/10/16 0000 Signed Impressions: Service Date/Time: Saturday, December 10, 2016 16:55 - CONCLUSION: 1. The heart size is moderately enlarged and there is a small pericardial effusion. This measures up to approximately 1 cm in thickness. 2. Multilevel pleural effusions right greater than left with consolidation in both posterior lung bases. Sergei Chowdhury MD Objective Remarks GENERAL: 71-year-old female, critically ill currently orotracheally intubated SKIN: Warm and dry. Site of pericardial window without erythema or drainage HEAD: Atraumatic. Normocephalic. EYES: Pupils equal and round by 3 mm bilaterally and reactive. No scleral icterus. No injection or drainage. ENT: No nasal bleeding or discharge. Mucous membranes pink and moist. NECK: Trachea midline. No JVD. CARDIOVASCULAR: Regular rate and rhythm. S1, S2. No S4. No rub RESPIRATORY: Clear to auscultation. Breath sounds equal bilaterally. GASTROINTESTINAL: Abdomen soft, non-tender, nondistended. Hypoactive bowel sounds are appreciated. MUSCULOSKELETAL: Extremities without skin peripheral edema. No obvious deformities. NEUROLOGICAL: Sedated on the ventilator. Positive gag. Positive corneal reflex. Withdraws to pain in all 4 extremities. A/P Assessment and Plan Neuro/Psych: Acute encephalopathy Bipolar disorder History of sciatica History of implanted morphine pump - managed by Dr. Duncan Currently on Versed/fentanyl drips for sedation/analgesia while intubated Goal of RA SS -[address] showed no acute intracranial findings Depakote on hold. Depakote level was 33.8 in ED. Antipsych meds on hold. CV: Symptomatically bradycardia - likely medication induced History of organizing fibrinous pericarditis Mitral valve prolapse History of atrial fibrillation Small pericardial effusion Evaluated by Dr. Jerry/cardiology. Recommended's holding amiodarone, Cardizem, beta hunter and psychiatric medications. Reassess in a.m. Will follow CT revealed 1 cm small pericardial effusion without tamponade features Amiodarone and Cardizem on hold. Wean off dopamine monitor HR and BP keep MAP>65mmHg. Lactic acid 1.0 Resp: Acute hypoxemic respiratory failure History of mild intermittent asthma Small bilateral pleural effusions PRVC 18/500/1/5/50, decrease FIO2 40% Continue with vent support keep sat >92% Bronchodilators, ICYU vent bundle, start CPAP trials as jensen CT thorax revealed 1 cm small pericardial effusion. Otherwise unremarkable Followup on echo results GI: NPO for now, start TF today if remains intubated. OG tube to low intermittent wall suction Protonix for GI prophylaxis Colace/as needed Senokot for bowel regimen : Monitor renal function, I/O's, electrolytes replacement per protocol. Endo: Likely hyperglycemia of critical illness Hypothyroidism Continue Levoxyl 75 mics grams by mouth daily. TSH: 1.37 Sliding-scale insulin with Accu-Cheks to maintain euglycemia. On D10@30ml/hr (hypoglycemic overnight) d/c NS@84ml/hr Heme: Leukocytosis Normocytic anemia Monitor CBC ID: History of HSV suppression with Zovirax 800 mg twice a day Monitor for signs of infections ( Fever, WBC) check sputum cx, UA with cx if indicated Place on Levaquin empirically. Patient is allergic to PCN. MSK: PT evaluate and treat Access - left IJ CVL placed 12/10 Prophylaxis - GI - Protonix - DVT - SCDs/heparin subcutaneous Critical Care: The total critical care time was 30 minutes. Time to perform other separately billable procedures was not included in the critical care time. Cesar Corrales MD Dec 11, 2016 07:32
[2016-12-11] MEDS: INSULIN NovoLIN REGULAR SUPPLEMENTAL SCALE SQ SCH ×4 (08:00→20:00)
[2016-12-11] MEDS: LEVOFLOXACIN 750 MG PREMIX INJ 150 ML IV SCH (08:00)
[2016-12-11] MEDS: DOCUSATE SODIUM 100 MG CAP PO SCH ×2 (08:29→20:27)
[2016-12-11] MEDS: HEPARIN SODIUM - SQ 10,000 UNITS/ML VIAL SQ SCH ×2 (08:29→22:01)
[2016-12-11] MEDS: PANTOPRAZOLE SODIUM 40 MG VIAL IV SCH (08:29)
[2016-12-11] MEDS: SODIUM CHLORIDE 0.9% FLUSH 5 ML FLUSH IV FLUSH SCH ×2 (08:32→20:28)
[2016-12-11] MEDS: SODIUM CHLORIDE 0.9% FLUSH 5 ML FLUSH IVF SCH (08:32)
[2016-12-11] MEDS: ARTIFICIAL TEARS OPTH SOLN 15 ML BTL EACH EYE SCH ×3 (08:33→18:00)
[2016-12-11] MEDS: CHLORHEXIDINE 0.12% (ORAL KIT) 15 ML CUP MT SCH ×2 (08:42→20:00)
--- NOTE | 2016-12-11 08:47 | PD.CARD.PN ---
Subjective Subjective Remarks Intubated. Sedated. Objective Medications Item Value Date Time Heparin Sodium 5,000 units 12/10/16 2100 (Porcine) Q12HR/SQ 12/11/16 0829 (Heparin Inj) Dopamine HCl/ 500 ml @ 0 mls/hr 12/10/16 1545 Dextrose TITRATE/IV 12/11/16 0610 Vital Signs / I&O Vital Signs Date Time Temp Pulse Resp B/P Pulse Ox O2 Delivery O2 Flow Rate FiO2 12/11/16 07:58 100 40 12/11/16 06:00 74 12/11/16 04:18 100 50 12/11/16 04:00 79 12/11/16 04:00 97.0 72 18 165/77 96 12/11/16 02:00 78 12/11/16 02:00 76 12/11/16 00:00 76 12/11/16 00:00 97.2 72 18 168/77 100 12/11/16 00:00 74 12/10/16 23:36 100 50 12/10/16 22:00 74 12/10/16 22:00 74 12/10/16 20:17 98 50 12/10/16 20:15 97.6 65 18 167/75 100 12/10/16 20:00 65 12/10/16 20:00 100 100 12/10/16 20:00 65 12/10/16 19:33 98 50 12/10/16 19:24 50 12/10/16 19:10 67 18 100 Auto-Vent 50 12/10/16 19:02 68 131/60 100 12/10/16 17:23 50 12/10/16 17:22 75 17 134/63 100 Ventilator 50 12/10/16 16:50 100 100 12/10/16 16:21 58 15 111/56 100 Ventilator 50 12/10/16 16:20 100 50 12/10/16 16:14 59 12 113/53 100 Ventilator 50 12/10/16 16:01 59 18 93/51 93 Nasal Cannula 3.5 12/10/16 16:01 93 Nasal Cannula 3.50 12/10/16 15:40 45 14 102/53 96 Nasal Cannula 2 12/10/16 15:26 99 Nasal Cannula 2.00 12/10/16 15:26 44 16 102/53 99 Nasal Cannula 2 12/10/16 15:09 47 12 119/52 95 I/O 12/10/16 12/10/16 12/10/16 12/11/16 12/11/16 12/11/16 07:00 15:00 23:00 07:00 15:00 23:00 Intake Total 735 ml 859 ml Output Total 2250 ml 600 ml Balance -1515 ml 259 ml Intake IV Total 735 ml 859 ml Output Urine Total 2250 ml 600 ml Gastric Drainage Total 0 ml Physical Exam GENERAL: Well developed, well nourished. Intubated. Sedated. HEENT: Jugular venous pressure is normal. CHEST: Lungs clear to auscultation anteriorly. CARDIAC: Regular rate and rhythm without S3, S4, or murmur. ABDOMEN: Soft, nontender, no hepatosplenomegaly. Bowel sounds present. EXTREMITIES: No clubbing, cyanosis, or edema. Laboratory Laboratory Tests Test 12/10/16 12/10/16 12/10/16 12/10/16 16:00 16:20 16:34 16:36 White Blood Count 12.7 TH/MM3 Red Blood Count 2.83 MIL/MM3 Hemoglobin 8.9 GM/DL Hematocrit 27.3 % Mean Corpuscular Volume 96.7 FL Mean Corpuscular Hemoglobin 31.5 PG Mean Corpuscular Hemoglobin 32.6 % Concent Red Cell Distribution Width 15.2 % Platelet Count 415 TH/MM3 Mean Platelet Volume 7.8 FL Neutrophils (%) (Auto) 74.1 % Lymphocytes (%) (Auto) 11.5 % Monocytes (%) (Auto) 9.1 % Eosinophils (%) (Auto) 4.6 % Basophils (%) (Auto) 0.7 % Neutrophils # (Auto) 9.4 TH/MM3 Lymphocytes # (Auto) 1.5 TH/MM3 Monocytes # (Auto) 1.2 TH/MM3 Eosinophils # (Auto) 0.6 TH/MM3 Basophils # (Auto) 0.1 TH/MM3 CBC Comment DIFF FINAL Differential Comment Urine Opiates Screen POS Urine Barbiturates Screen NEG Urine Amphetamines Screen NEG Urine Benzodiazepines Screen NEG Urine Cocaine Screen NEG Urine Cannabinoids Screen NEG Bedside Hemoglobin 10.2 G/DL Bedside Hematocrit 30.0 % Bedside Sodium 135 MMOL/L Sodium Level 136 MEQ/L Bedside Potassium 5.6 MMOL/L Potassium Level 5.6 MEQ/L Bedside Chloride 101 MMOL/L Chloride Level 102 MEQ/L Carbon Dioxide Level 26.8 MEQ/L Anion Gap 7 MEQ/L Bedside Blood Urea Nitrogen 34 MG/DL Blood Urea Nitrogen 27 MG/DL Creatinine 0.89 MG/DL Bedside Creatinine 0.8 MG/DL Estimat Glomerular Filtration 63 ML/MIN Rate Bedside Glucose 189 MG/DL Random Glucose 181 MG/DL Calcium Level 8.0 MG/DL Troponin I LESS THAN 0.02 NG/ML Salicylates Level LESS THAN 1.7 MG/DL Blood Gas Puncture Site LT RADIAL Blood Gas Patient Temperature 98.6 Blood Gas HCO3 26 mmol/L Blood Gas Base Excess 1.1 mmol/L Blood Gas Oxygen Saturation 94 % Arterial Blood pH 7.35 Arterial Blood Partial 48 mmHg Pressure CO2 Arterial Blood Partial 83 mmHG Pressure O2 Arterial Blood Oxygen Content 12.1 Vol % Arterial Blood 1.4 % Carboxyhemoglobin Arterial Blood Methemoglobin 0.2 % Blood Gas Hemoglobin 9.1 G/DL Oxygen Delivery Device VENTILATOR Blood Gas Ventilator Setting PRVC/AC Blood Gas Inspired Oxygen 50 % Test 12/10/16 12/10/16 12/10/16 12/11/16 16:50 20:30 23:00 01:45 Acetaminophen Level 2.3 MCG/ML Valproic Acid (Depakene) Level 33 MCG/ML Ethyl Alcohol Level LESS THAN 3 MG/DL Nasal Screen MRSA (PCR) NEGATIVE Lactic Acid Level 0.5 mmol/L Sodium Level 138 MEQ/L Potassium Level 4.2 MEQ/L 3.9 MEQ/L Chloride Level 99 MEQ/L Carbon Dioxide Level 30.0 MEQ/L Anion Gap 9 MEQ/L Blood Urea Nitrogen 22 MG/DL Creatinine 0.58 MG/DL Estimat Glomerular Filtration 103 ML/MIN Rate Random Glucose 112 MG/DL Calcium Level 8.5 MG/DL Magnesium Level 1.9 MG/DL Total Bilirubin 0.3 MG/DL Aspartate Amino Transf 13 U/L (AST/SGOT) Alanine Aminotransferase 15 U/L (ALT/SGPT) Alkaline Phosphatase 67 U/L Total Creatine Kinase 50 U/L Troponin I LESS THAN 0.02 NG/ML Total Protein 7.5 GM/DL Albumin 2.4 GM/DL Thyroid Stimulating Hormone 1.370 uIU/ML 3rd Gen Phenytoin (Dilantin) Level LESS THAN 0.4 MCG/ML Test 12/11/16 04:30 White Blood Count 15.7 TH/MM3 Red Blood Count 3.02 MIL/MM3 Hemoglobin 9.5 GM/DL Hematocrit 28.4 % Mean Corpuscular Volume 93.9 FL Mean Corpuscular Hemoglobin 31.6 PG Mean Corpuscular Hemoglobin 33.6 % Concent Red Cell Distribution Width 14.8 % Platelet Count 493 TH/MM3 Mean Platelet Volume 6.6 FL Neutrophils (%) (Auto) 88.0 % Lymphocytes (%) (Auto) 5.7 % Monocytes (%) (Auto) 3.5 % Eosinophils (%) (Auto) 2.2 % Basophils (%) (Auto) 0.6 % Neutrophils # (Auto) 13.8 TH/MM3 Lymphocytes # (Auto) 0.9 TH/MM3 Monocytes # (Auto) 0.6 TH/MM3 Eosinophils # (Auto) 0.3 TH/MM3 Basophils # (Auto) 0.1 TH/MM3 CBC Comment DIFF FINAL Differential Comment Prothrombin Time 10.7 SEC Prothromb Time International 1.0 RATIO Ratio Activated Partial 28.8 SEC Thromboplast Time Sodium Level 137 MEQ/L Potassium Level 3.8 MEQ/L Chloride Level 99 MEQ/L Carbon Dioxide Level 29.5 MEQ/L Anion Gap 9 MEQ/L Blood Urea Nitrogen 19 MG/DL Creatinine 0.60 MG/DL Estimat Glomerular Filtration 99 ML/MIN Rate Random Glucose 154 MG/DL Lactic Acid Level 1.0 mmol/L Calcium Level 8.7 MG/DL Phosphorus Level 2.7 MG/DL Magnesium Level 1.8 MG/DL Total Bilirubin 0.2 MG/DL Aspartate Amino Transf 11 U/L (AST/SGOT) Alanine Aminotransferase 12 U/L (ALT/SGPT) Alkaline Phosphatase 66 U/L Troponin I LESS THAN 0.02 NG/ML Total Protein 7.0 GM/DL Albumin 2.2 GM/DL Imaging Last 48 hours Impressions Chest X-Ray 12/11/16 0600 Signed Impressions: Service Date/Time: Sunday, December 11, 2016 03:11 - CONCLUSION: No significant change has occurred. Loc Brooks MD Chest X-Ray 12/10/16 1856 Signed Impressions: Service Date/Time: Saturday, December 10, 2016 18:56 - CONCLUSION: 1. Interval placement of left internal jugular central venous line with no evidence of pneumothorax. 2. Hazy infiltrate remains at both lung bases. Sergei Chowdhury MD Head CT 3/19/17 0000 Signed Impressions: Service Date/Time: Saturday, December 10, 2016 16:56 - CONCLUSION: Unremarkable noncontrast CT. Sergei Chowdhury MD Chest X-Ray 12/10/16 0000 Signed Impressions: Service Date/Time: Saturday, December 10, 2016 16:26 - CONCLUSION: 1. Interval intubation and placement of nasogastric tube. The tip of the nasogastric tube lies in the proximal stomach and could be advanced several centimeters. 2. Mild cardiomegaly with hazy opacity in both lungs which may represent pulmonary edema. 3. Probable small effusions. Sergei Chowdhury MD Chest X-Ray 12/10/16 0000 Signed Impressions: Service Date/Time: Saturday, December 10, 2016 15:52 - CONCLUSION: 1. Improved aeration with mild residual infiltrate at the lung bases. 2. The previously noted small bilateral effusions are no longer visualized. Sergei Chowdhury MD Chest CT 12/10/16 0000 Signed Impressions: Service Date/Time: Saturday, December 10, 2016 16:55 - CONCLUSION: 1. The heart size is moderately enlarged and there is a small pericardial effusion. This measures up to approximately 1 cm in thickness. 2. Multilevel pleural effusions right greater than left with consolidation in both posterior lung bases. Sergei Chowdhury MD Assessment and Plan Problem List: (1) Bradycardia Assessment and Plan: HR's improving off meds. Agree with Dr. Jerry's assessment/recs. Now down to about 6 mcg/kg/min of dopamine. REC continue to wean dopamine consider resuming Amiodarone tomorrow daily aspirin once extubated (2) Paroxysmal atrial fibrillation Assessment and Plan: Remains in NSR. Consider resuming Amiodarone tomorrow. Rec daily aspirin once extubated. (3) Pericardial effusion Assessment and Plan: Status post recent pericardial window for possible tamponade. Small pericardial effusion on CT this admission. Code Status full code Shaheed Villafuerte MD Dec 11, 2016 08:47
[2016-12-11 13:39] LABS: BLOOD GAS CARBOXYHEMOGLOBIN 1.7 % (0-4); BLOOD GAS HCO3 27 mmol/L (22-26); BLOOD GAS METHEMOGLOBIN 0.9 % (0-2); BLOOD GAS O2 HGB SATURATION 97 % (90-100); BLOOD GAS OXYGEN CONTENT 11.4 Vol % (12.0-20.0); BLOOD GAS PCO2 47 mmHg (38-42); BLOOD GAS PO2 151 mmHg (61-120); BLOOD GAS TOTAL HGB 8.1 G/DL (12.0-16.0); CRITICAL VALUE NO; FIO2 40 %; NUMBER OF ARTERIAL PUNCTURES 1; OXYGEN DEVICE VENTILATOR; STAT YES; TEMP CORR TO 98.6; ULNAR PULSE Y; VENT SETTINGS EPAP 50 IPAP 10
--- NOTE | 2016-12-11 14:59 | EKG ---
Date Performed: 12/10/2016 Time Performed: 15:44:19 PTAGE: 71 years EKG: SINUS BRADYCARDIA ABNORMAL RHYTHM ECG INTERPRETATION BASED ON A DEFAULT AGE OF 40 YEARS PREVIOUS TRACING : 12/02/2016 00.28 Compared to prior tracing no significant change DOCTOR: Jose Alberto Deleon Interpretating Date/Time 12/11/2016 14:59:03
--- NOTE | 2016-12-11 15:59 | ECHLIM ---
Study Study Date:12/11/2016 STUDY CONCLUSIONS SUMMARY - Left ventricle: The cavity size was normal. Wall thickness was normal. Systolic function was normal. The estimated ejection fraction was in the range of 55% to 60%. Wall motion was normal; there were no regional wall motion abnormalities. - Pericardium, extracardiac: A trivial pericardial effusion was identified. If LV function is below 40, please consider prescribing an ACEI or ARB or document rationale for non-use. PROCEDURE DATA STUDY STATUS: Elective. Procedure: Transthoracic echocardiography. Image quality was good. Scanning was performed from the parasternal, apical, and subcostal acoustic windows. Study completion: The patient tolerated the procedure well. Transthoracic echocardiography. M-mode, complete 2D, complete spectral Doppler, and color Doppler. Patient status: Inpatient. CARDIAC ANATOMY LEFT VENTRICLE: The cavity size was normal. Wall thickness was normal. Systolic function was normal. The estimated ejection fraction was in the range of 55% to 60%. Wall motion was normal; there were no regional wall motion abnormalities. AORTIC VALVE: Trileaflet; normal thickness leaflets. Doppler: Transvalvular velocity was within the normal range. There was no stenosis. No regurgitation. AORTA: Aortic root: The aortic root was normal in size. MITRAL VALVE: Structurally normal valve. Doppler: Transvalvular velocity was within the normal range. There was no evidence for stenosis. No regurgitation. LEFT ATRIUM: The atrium was normal in size. RIGHT VENTRICLE: The cavity size was normal. Wall thickness was normal. PULMONIC VALVE: Doppler: Transvalvular velocity was within the normal range. There was no evidence for stenosis. No regurgitation. TRICUSPID VALVE: Structurally normal valve. Doppler: Transvalvular velocity was within the normal range. No regurgitation. PULMONARY ARTERY: The main pulmonary artery was normal-sized. Systolic pressure was within the normal range. RIGHT ATRIUM: The atrium was normal in size. PERICARDIUM: A trivial pericardial effusion was identified. SYSTEMIC VEINS: Inferior vena cava: The vessel was normal in size. BASIC MEASUREMENTS ADULT NORMAL Left ventricle LV internal dimension, ED, chordal level, *42.6 mm 43-52 PLAX LV internal dimension, ES, chordal level, 34 mm 23-38 PLAX Fractional shortening, chordal level, PLAX *20 % >29 LV posterior wall thickness, ED 12.3 mm IVS/LVPW ratio, ED 0.97 <1.3 Volume, ED, MOD, 1-plane 89 ml Volume, ES, MOD, 1-plane 45 ml Ejection fraction, MOD, 1-plane 49 % Stroke volume, MOD, 1-plane 44 ml Ventricular septum Septal thickness, ED 11.9 mm Right ventricle RV internal dimension, ED, PLAX 28.5 mm 19-38 LEGEND: Mean values are shown as u=mean value. Asterisk (*) valencia values outside specified normal range. Prepared and signed by Efrain Reynolds [id number]
[2016-12-11] MEDS: clonazePAM 0.5 MG TAB PO SCH (20:26)
[2016-12-11] MEDS: ACETAMINOPHEN/HYDROcodone 325 MG/7.5 MG TAB PO PRN (20:27)
[2016-12-11] MEDS ORDERED: NON-FORMULARY DRUG (Quetiapine (Seroquel) 50 MG) PO SCH (21:00)
[2016-12-11] MEDS: ACETAMINOPHEN 325 MG TAB PO PRN (22:13)
[2016-12-11] MEDS: MORPHINE SULFATE 4 MG/ML INJ IV PUSH PRN (23:04)
[2016-12-12] VITALS (14 sets, daily range): BP systolic 93–143; BP diastolic 55–66; PULSE 74–104; RESP 18–22; TEMP 97.8–99.8; O2SAT 95–97
[2016-12-12] MEDS: ACETAMINOPHEN/HYDROcodone 325 MG/7.5 MG TAB PO PRN ×4 (00:16→22:00)
[2016-12-12] MEDS: MORPHINE SULFATE 4 MG/ML INJ IV PUSH PRN ×2 (03:39→09:16)
[2016-12-12] MEDS: ONDANSETRON HCL 4 MG/2 ML VIAL IV PRN ×3 (03:49→21:36)
[2016-12-12] MEDS: INSULIN NovoLIN REGULAR SUPPLEMENTAL SCALE SQ SCH ×3 (04:00→08:00)
[2016-12-12] MEDS: CHLORHEXIDINE GLUCONATE 2 % 1 PACK (2 CLOTHS) TOP SCH ×2 (04:00→21:13)
[2016-12-12] MEDS: RESP: ALBUTEROL 2.5 MG/IPRATROPIUM 0.5 MG NEB (SCH) INH ×4 (04:06→19:37)
[2016-12-12 04:14] LABS: AUTOMATED NEUTROPHIL # 8.2 TH/MM3 (1.8-7.7); BASOPHIL # 0.1 TH/MM3 (0-0.2); BASOPHIL % 0.6 % (0.0-2.0); EOSINOPHIL # 0.2 TH/MM3 (0-0.4); HEMATOCRIT 24.7 % (35.0-46.0); HEMO FLAGS DIFF FINAL; LYMPH % 13.5 % (9.0-44.0); LYMPHOCYTE # 1.5 TH/MM3 (1.0-4.8); MEAN CELL VOLUME 96.8 FL (80.0-100.0); MEAN CORPUSCULAR HEMOGLOBIN 30.8 PG (27.0-34.0); MEAN CORPUSCULAR HGB CONC 31.8 % (32.0-36.0); MONO % 10.8 % (0.0-8.0); NEUT % 73.1 % (16.0-70.0); PLATELET COUNT 348 TH/MM3 (150-450); RED BLOOD COUNT 2.56 MIL/MM3 (4.00-5.30); RED CELL DISTRIBUTION WIDTH 14.7 % (11.6-17.2); WHITE BLOOD COUNT 11.2 TH/MM3 (4.0-11.0)
[2016-12-12] MEDS: DEXTROSE 10% INJ 1,000 ML IV SCH (04:26)
[2016-12-12 04:47] LABS: BICARBONATE 27.8 MEQ/L (21.0-32.0); MAGNESIUM 1.7 MG/DL (1.5-2.5); POTASSIUM 3.6 MEQ/L (3.5-5.1)
[2016-12-12] MEDS: LEVOTHYROXINE SODIUM 75 MCG TAB PO SCH (05:17)
[2016-12-12] MEDS: ACETAMINOPHEN 325 MG TAB PO PRN (05:55)
[2016-12-12] MEDS: CHLORHEXIDINE 0.12% (ORAL KIT) 15 ML CUP MT SCH ×2 (08:00→20:00)
[2016-12-12] MEDS: PANTOPRAZOLE SODIUM 40 MG VIAL IV SCH (08:02)
[2016-12-12] MEDS: DOCUSATE SODIUM 100 MG CAP PO SCH ×2 (08:03→20:08)
[2016-12-12] MEDS: HEPARIN SODIUM - SQ 10,000 UNITS/ML VIAL SQ SCH ×2 (08:03→20:09)
[2016-12-12] MEDS: clonazePAM 0.5 MG TAB PO SCH ×2 (08:03→20:09)
[2016-12-12] MEDS: LEVOFLOXACIN 750 MG PREMIX INJ 150 ML IV SCH (08:03)
[2016-12-12] MEDS: ARTIFICIAL TEARS OPTH SOLN 15 ML BTL EACH EYE SCH ×3 (08:04→17:47)
--- NOTE | 2016-12-12 08:38 | PD.CARD.PN ---
Subjective Subjective Remarks Denies dizziness, syncope, palpitations, CP, dyspnea. Objective Medications Item Value Date Time Heparin Sodium 5,000 units 12/10/16 2100 (Porcine) Q12HR/SQ 12/12/16 0803 (Heparin Inj) Vital Signs / I&O Vital Signs Date Time Temp Pulse Resp B/P Pulse Ox O2 Delivery O2 Flow Rate FiO2 12/12/16 06:55 22 12/12/16 06:00 80 12/12/16 04:00 98.8 74 20 122/56 96 12/12/16 04:00 74 12/12/16 03:44 20 12/12/16 02:00 86 12/12/16 01:16 20 12/12/16 00:00 99.8 78 22 121/59 95 12/12/16 00:00 78 12/11/16 22:00 86 12/11/16 20:17 94 Nasal Cannula 2.00 12/11/16 20:00 99.0 79 20 121/60 94 12/11/16 20:00 79 12/11/16 18:00 81 12/11/16 16:00 81 12/11/16 16:00 98.3 81 20 115/55 100 12/11/16 14:00 79 12/11/16 13:42 99 Nasal Cannula 2.00 12/11/16 13:42 99 Nasal Cannula 2 12/11/16 13:00 40 12/11/16 12:00 50 12/11/16 12:00 98.0 78 22 107/58 100 12/11/16 12:00 75 12/11/16 11:57 100 40 12/11/16 10:29 100 40 12/11/16 10:00 77 I/O 12/11/16 12/11/16 12/11/16 12/12/16 12/12/16 12/12/16 07:00 15:00 23:00 07:00 15:00 23:00 Intake Total 859 ml 243 ml 1622 ml 400 ml Output Total 600 ml 800 ml 850 ml 1450 ml Balance 259 ml -557 ml 772 ml -1050 ml Intake Oral 420 ml 250 ml IV Total 859 ml 243 ml 1202 ml 150 ml Output Urine Total 600 ml 800 ml 850 ml 1450 ml Gastric Drainage Total 0 ml # Bowel Movements 0 Physical Exam GENERAL: Well developed, well nourished. Awake. Alert. HEENT: Jugular venous pressure is normal. CHEST: Lungs clear to auscultation anteriorly. CARDIAC: Regular rate and rhythm without S3, S4, or murmur. ABDOMEN: Soft, nontender, no hepatosplenomegaly. Bowel sounds present. EXTREMITIES: No clubbing, cyanosis, or edema. Laboratory Laboratory Tests Test 12/11/16 12/12/16 13:30 02:20 Blood Gas Puncture Site AR Blood Gas Patient Temperature 98.6 Blood Gas HCO3 27 mmol/L Blood Gas Base Excess 2.0 mmol/L Blood Gas Oxygen Saturation 97 % Arterial Blood pH 7.38 Arterial Blood Partial 47 mmHg Pressure CO2 Arterial Blood Partial 151 mmHg Pressure O2 Arterial Blood Oxygen Content 11.4 Vol % Arterial Blood 1.7 % Carboxyhemoglobin Arterial Blood Methemoglobin 0.9 % Blood Gas Hemoglobin 8.1 G/DL Oxygen Delivery Device VENTILATOR Blood Gas Ventilator Setting EPAP 50 IPAP 10 Blood Gas Inspired Oxygen 40 % White Blood Count 11.2 TH/MM3 Red Blood Count 2.56 MIL/MM3 Hemoglobin 7.9 GM/DL Hematocrit 24.7 % Mean Corpuscular Volume 96.8 FL Mean Corpuscular Hemoglobin 30.8 PG Mean Corpuscular Hemoglobin 31.8 % Concent Red Cell Distribution Width 14.7 % Platelet Count 348 TH/MM3 Mean Platelet Volume 7.6 FL Neutrophils (%) (Auto) 73.1 % Lymphocytes (%) (Auto) 13.5 % Monocytes (%) (Auto) 10.8 % Eosinophils (%) (Auto) 2.0 % Basophils (%) (Auto) 0.6 % Neutrophils # (Auto) 8.2 TH/MM3 Lymphocytes # (Auto) 1.5 TH/MM3 Monocytes # (Auto) 1.2 TH/MM3 Eosinophils # (Auto) 0.2 TH/MM3 Basophils # (Auto) 0.1 TH/MM3 CBC Comment DIFF FINAL Differential Comment Sodium Level 137 MEQ/L Potassium Level 3.6 MEQ/L Chloride Level 102 MEQ/L Carbon Dioxide Level 27.8 MEQ/L Anion Gap 7 MEQ/L Blood Urea Nitrogen 13 MG/DL Creatinine 0.61 MG/DL Estimat Glomerular Filtration 97 ML/MIN Rate Random Glucose 109 MG/DL Calcium Level 8.2 MG/DL Phosphorus Level 2.8 MG/DL Magnesium Level 1.7 MG/DL Assessment and Plan Problem List: (1) Bradycardia Assessment and Plan: Bradycardia resolved off meds. Off dopamine and hemodynamically stable. REC resume Cardizem OK to transfer out of ICU from a cardiac standpoint (2) Paroxysmal atrial fibrillation Assessment and Plan: Remains in NSR. Rec resume, Cardizem, daily aspirin. (3) Pericardial effusion Assessment and Plan: Status post recent pericardial window for possible tamponade. Small pericardial effusion on CT this admission. Code Status full code Discussed Condition With patient, at length Shaheed Villafuerte MD Dec 12, 2016 08:38
[2016-12-12] MEDS: SODIUM CHLORIDE 0.9% FLUSH 5 ML FLUSH IV FLUSH SCH ×2 (09:17→20:09)
[2016-12-12] MEDS: SODIUM CHLORIDE 0.9% FLUSH 5 ML FLUSH IVF SCH (09:17)
[2016-12-12 12:52] LABS: HEMATOCRIT 25.2 % (35.0-46.0); MEAN CELL VOLUME 95.2 FL (80.0-100.0); MEAN CORPUSCULAR HEMOGLOBIN 31.5 PG (27.0-34.0); PLATELET COUNT 394 TH/MM3 (150-450); RED BLOOD COUNT 2.65 MIL/MM3 (4.00-5.30); RED CELL DISTRIBUTION WIDTH 14.8 % (11.6-17.2); WHITE BLOOD COUNT 23.4 TH/MM3 (4.0-11.0)
[2016-12-12 12:54] LABS: HEMO FLAGS AUTO DIFF
[2016-12-12 13:17] LABS: BANDS 1 % (0-6); EOSINOPHILS 1 % (0-4); NEUTROPHIL # MANUAL DIFF 21.3 TH/MM3 (1.8-7.7); PLATELET ESTIMATE SMEAR NORMAL (NORMAL); PLATELET MORPHOLOGY NORMAL (NORMAL); POLYS (SEG NEUTROPHILS) 90 % (16-70); TOXIC VACUOLATION PRESENT (NONE SEEN); WBC DIFF SAMPLE 100
[2016-12-12 13:19] LABS: SCAN/DIFF FINAL DIFF MANUAL; STOMATOCYTES 1+ (NORMAL)
[2016-12-12] MEDS: ASPIRIN EC 81 MG TABEC PO SCH (13:58)
[2016-12-12] MEDS: DILTIAZEM-CD 180 MG CAP ER PO SCH (13:59)
[2016-12-12] MEDS ORDERED: POLYETHYLENE GLYCOL 17 GM PKG PO ONE (14:45)
[2016-12-12] MEDS ORDERED: DOCUSATE SODIUM 50 MG/SENNA 8.6 MG TAB PO ONE (14:45)
--- NOTE | 2016-12-12 19:23 | HHI.PR ---
Subjective Remarks Patient seen today around noon. She denies any chest pain or shortness of breath. She reports chronic back pain, would like to get up out of bed to chair. She requests restarting her bipolar medications. Objective Vital Signs Date Time Temp Pulse Resp B/P Pulse Ox O2 Delivery O2 Flow Rate FiO2 12/12/16 16:00 98.7 83 21 93/55 95 12/12/16 16:00 86 12/12/16 14:00 83 12/12/16 13:44 18 12/12/16 12:00 93 12/12/16 12:00 99.3 93 20 142/66 95 12/12/16 10:00 95 12/12/16 09:32 97 Nasal Cannula 2.00 12/12/16 09:21 18 12/12/16 08:00 85 12/12/16 08:00 99.0 85 18 143/65 95 12/12/16 06:55 22 12/12/16 06:00 80 12/12/16 04:00 98.8 74 20 122/56 96 12/12/16 04:00 74 12/12/16 02:00 86 12/12/16 00:00 99.8 78 22 121/59 95 12/12/16 00:00 78 12/11/16 22:00 86 12/11/16 20:17 94 Nasal Cannula 2.00 12/11/16 20:00 99.0 79 20 121/60 94 12/11/16 20:00 79 I/O 12/11/16 12/11/16 12/11/16 12/12/16 12/12/16 12/12/16 07:00 15:00 23:00 07:00 15:00 23:00 Intake Total 859 ml 243 ml 1622 ml 400 ml 600 ml Output Total 600 ml 800 ml 850 ml 1450 ml 1200 ml Balance 259 ml -557 ml 772 ml -1050 ml -600 ml Intake Oral 420 ml 250 ml 600 ml IV Total 859 ml 243 ml 1202 ml 150 ml Output Urine Total 600 ml 800 ml 850 ml 1450 ml 1200 ml Gastric Drainage Total 0 ml # Bowel Movements 0 Result Diagram: 12/12/16 1240 12/12/16 0220 Imaging Last Impressions Chest X-Ray 12/11/16 0600 Signed Impressions: Service Date/Time: Sunday, December 11, 2016 03:11 - CONCLUSION: No significant change has occurred. Loc Brooks MD Head CT 12/10/16 0000 Signed Impressions: Service Date/Time: Saturday, December 10, 2016 16:56 - CONCLUSION: Unremarkable noncontrast CT. Sergei Chowdhury MD Chest CT 12/10/16 0000 Signed Impressions: Service Date/Time: Saturday, December 10, 2016 16:55 - CONCLUSION: 1. The heart size is moderately enlarged and there is a small pericardial effusion. This measures up to approximately 1 cm in thickness. 2. Multilevel pleural effusions right greater than left with consolidation in both posterior lung bases. Sergei Chowdhury MD Objective Remarks GENERAL: patient sitting up in bed. Appears comfortable. She appears anxious. SKIN: Warm and dry. HEAD: Normocephalic. EYES: No scleral icterus. No injection or drainage. NECK: Supple, trachea midline. No JVD. CARDIOVASCULAR: Regular rate and rhythm without murmurs, gallops, or rubs. RESPIRATORY: Breath sounds equal bilaterally. No accessory muscle use. GASTROINTESTINAL: Abdomen soft, non-tender, nondistended. MUSCULOSKELETAL: No cyanosis, or edema. BACK: Nontender without obvious deformity. No CVA tenderness. A/P Assessment and Plan 12/12/16 -Bradycardia has resolved. Restart lower dose of diltiazem. Appreciate cardiology assistance. -Altered mental status improved. Restart patient's antipsychotics. -Transfer to floor. -Increasing white count. CT chest with pneumonia. Add vancomycin for healthcare associated pneumonia from previous admission. Consult pulmonology. -Constipation. Cathartics ordered. Neuro/Psych: //Acute encephalopathy //Bipolar disorder //History of sciatica //History of implanted morphine pump - managed by Dr. Duncan -Sedation has been discontinued. -Altered mental status has improved. CT showed no acute intracranial findings 12/12-Depakote was initially held, however we'll restart. No history of seizures. 12/12 Antipsych meds restarted. CV: //Symptomatically bradycardia - likely medication induced //History of organizing fibrinous pericarditis //Mitral valve prolapse //History of atrial fibrillation //Small pericardial effusion CT revealed 1 cm small pericardial effusion without tamponade features Evaluated by Dr. Jerry/cardiology. -Cardiology recommends holding amiodarone,beta hunter and psychiatric medications. -Restarted diltiazem as per cardiology. Resp: //Acute hypoxemic respiratory failure //History of mild intermittent asthma //Small bilateral pleural effusions /Possible healthcare associated pneumonia/ -Extubated 12/11. CT thorax revealed 1 cm small pericardial effusion. Otherwise unremarkable -Echocardiogram with trivial pericardial effusion. Normal ejection fraction 55 60 percent. -Continue oxygen as necessary. -12/12. Increasing white count. CT chest from 12/10 reviewed. Start vancomycin. Continue Levaquin. History of penicillin allergy. Likely hyperglycemia of critical illness. On admission. No history of diabetes. Discontinue sliding scale. Hypothyroidism. TSH acceptable. Continue Synthroid. /Constipation 12/12. Cathartics ordered. -Continue to monitor. Heme: //Leukocytosis. Acute. On admission. -12/12. Increase in white count to 21. Patient overall appears to be improving. We'll order ESR and CRP. //Normocytic anemia. -12/12. Hemoglobin decreased to 7.9 from 9.5. Likely dilutional secondary to fluids. No signs of bleeding. 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 Continue. //Prophylaxis. Heparin. Discharge Planning transfer to floor. PT following. Appreciate case management assistance. Carlos Todd MD Dec 12, 2016 19:22
[2016-12-12] MEDS: DIVALPROEX SODIUM E.R. 250 MG TAB PO SCH (20:09)
[2016-12-12] MEDS: VANCOMYCIN INJ 1,250 MG in SODIUM CHLOR 0.9% 250 ML INJ 250 ML IV SCH (21:13)
[2016-12-13] VITALS (14 sets, daily range): BP systolic 109–143; BP diastolic 55–66; PULSE 57–112; RESP 16–57; TEMP 97.6–99; O2SAT 92–98
[2016-12-13] MEDS: ACETAMINOPHEN/HYDROcodone 325 MG/7.5 MG TAB PO PRN ×5 (02:10→20:56)
[2016-12-13] MEDS: RESP: ALBUTEROL 2.5 MG/IPRATROPIUM 0.5 MG NEB (SCH) INH ×4 (03:12→20:44)
[2016-12-13 05:10] LABS: BASOPHIL # 0.1 TH/MM3 (0-0.2); BASOPHIL % 0.2 % (0.0-2.0); EOSINOPHIL # 0.1 TH/MM3 (0-0.4); EOSINOPHIL % 0.2 % (0.0-4.0); HEMATOCRIT 27.7 % (35.0-46.0); HEMO FLAGS DIFF FINAL; LYMPH % 3.2 % (9.0-44.0); LYMPHOCYTE # 0.9 TH/MM3 (1.0-4.8); MEAN CELL VOLUME 95.4 FL (80.0-100.0); MEAN CORPUSCULAR HEMOGLOBIN 30.2 PG (27.0-34.0); MEAN CORPUSCULAR HGB CONC 31.7 % (32.0-36.0); MONO % 2.8 % (0.0-8.0); NEUT % 93.6 % (16.0-70.0); PLATELET COUNT 351 TH/MM3 (150-450); RED BLOOD COUNT 2.91 MIL/MM3 (4.00-5.30); RED CELL DISTRIBUTION WIDTH 15.2 % (11.6-17.2); WHITE BLOOD COUNT 26.7 TH/MM3 (4.0-11.0)
[2016-12-13 05:35] LABS: POTASSIUM 3.7 MEQ/L (3.5-5.1)
[2016-12-13] MEDS: LEVOTHYROXINE SODIUM 75 MCG TAB PO SCH (05:55)
[2016-12-13] MEDS: ONDANSETRON HCL 4 MG/2 ML VIAL IV PRN (06:22)
[2016-12-13] MEDS: CHLORHEXIDINE 0.12% (ORAL KIT) 15 ML CUP MT SCH ×2 (08:00→20:56)
--- NOTE | 2016-12-13 08:11 | PD.CARD.PN ---
Subjective Subjective Remarks Denies CP, dyspnea, dizziness, palpitations. Slept well. Objective Medications Item Value Date Time Diltiazem HCl 180 mg 12/12/16 1000 (Cardizem Cd) DAILY/PO 12/12/16 1359 Aspirin 81 mg 12/12/16 1000 (Ecotrin Ec) DAILY/PO 12/12/16 1358 Heparin Sodium 5,000 units 12/10/16 2100 (Porcine) Q12HR/SQ 12/12/162008 (Heparin Inj) Vital Signs / I&O Vital Signs Date Time Temp Pulse Resp B/P Pulse Ox O2 Delivery O2 Flow Rate FiO2 12/13/16 06:00 74 12/13/16 04:00 70 12/13/16 04:00 98.5 70 20 126/60 94 12/13/16 02:00 79 12/13/16 00:00 112 12/13/16 00:00 99.0 112 20 117/66 92 12/12/16 22:00 104 12/12/16 20:00 97.8 75 18 140/64 96 12/12/16 20:00 75 12/12/16 19:42 96 21 12/12/16 18:00 82 12/12/16 16:00 98.7 83 21 93/55 95 12/12/16 16:00 86 12/12/16 14:00 83 12/12/16 13:44 18 12/12/16 12:00 93 12/12/16 12:00 99.3 93 20 142/66 95 12/12/16 10:00 95 12/12/16 09:32 97 Nasal Cannula 2.00 12/12/16 09:21 18 I/O 12/12/16 12/12/16 12/12/16 12/13/16 12/13/16 12/13/16 07:00 15:00 23:00 07:00 15:00 23:00 Intake Total 400 ml 600 ml 980 ml 720 ml Output Total 1450 ml 1200 ml 1300 ml 1000 ml Balance -1050 ml -600 ml -320 ml -280 ml Intake Oral 250 ml 600 ml 720 ml 720 ml IV Total 150 ml 260 ml Output Urine Total 1450 ml 1200 ml 1300 ml 1000 ml # Bowel Movements 0 1 0 Physical Exam GENERAL: Well developed, well nourished. HEENT: Jugular venous pressure is normal. CHEST: Lungs clear to auscultation anteriorly. CARDIAC: Regular rate and rhythm without S3, S4, or murmur. ABDOMEN: Soft, nontender, no hepatosplenomegaly. Bowel sounds present. EXTREMITIES: No clubbing, cyanosis, or edema. Laboratory Laboratory Tests Test 12/12/16 12/13/16 12:40 03:53 White Blood Count 23.4 TH/MM3 26.7 TH/MM3 Red Blood Count 2.65 MIL/MM3 2.91 MIL/MM3 Hemoglobin 8.3 GM/DL 8.8 GM/DL Hematocrit 25.2 % 27.7 % Mean Corpuscular Volume 95.2 FL 95.4 FL Mean Corpuscular Hemoglobin 31.5 PG 30.2 PG Mean Corpuscular Hemoglobin 33.0 % 31.7 % Concent Red Cell Distribution Width 14.8 % 15.2 % Platelet Count 394 TH/MM3 351 TH/MM3 Mean Platelet Volume 6.9 FL 7.3 FL Neutrophils (%) (Auto) % 93.6 % Lymphocytes (%) (Auto) % 3.2 % Monocytes (%) (Auto) % 2.8 % Eosinophils (%) (Auto) % 0.2 % Basophils (%) (Auto) % 0.2 % Neutrophils # (Auto) TH/MM3 25.0 TH/MM3 Lymphocytes # (Auto) TH/MM3 0.9 TH/MM3 Monocytes # (Auto) TH/MM3 0.7 TH/MM3 Eosinophils # (Auto) TH/MM3 0.1 TH/MM3 Basophils # (Auto) TH/MM3 0.1 TH/MM3 CBC Comment AUTO DIFF DIFF FINAL Differential Total Cells 100 Counted Neutrophils % (Manual) 90 % Band Neutrophils % 1 % Lymphocytes % 6 % Monocytes % 2 % Eosinophils % 1 % Neutrophils # (Manual) 21.3 TH/MM3 Differential Comment FINAL DIFF MANUAL Toxic Vacuolation PRESENT Platelet Estimate NORMAL Platelet Morphology Comment NORMAL Stomatocytes 1+ Erythrocyte Sedimentation Rate 84 mm/hr Sodium Level 138 MEQ/L Potassium Level 3.7 MEQ/L Chloride Level 99 MEQ/L Carbon Dioxide Level 29.0 MEQ/L Anion Gap 10 MEQ/L Blood Urea Nitrogen 11 MG/DL Creatinine 0.64 MG/DL Estimat Glomerular Filtration 92 ML/MIN Rate Random Glucose 116 MG/DL Calcium Level 8.3 MG/DL Assessment and Plan Problem List: (1) Bradycardia Assessment and Plan: Bradycardia resolved off meds. Hemodynamically stable. REC continue Cardizem, keep off Amiodarone OK to transfer out of ICU from a cardiac standpoint will f/u as needed rest of hospital stay; patient cleared for discharge from a cardiac standpoint (2) Paroxysmal atrial fibrillation Assessment and Plan: Remains in NSR. Rec continue Cardizem, daily aspirin. Keep off Amiodarone. (3) Pericardial effusion Assessment and Plan: Status post recent pericardial window for possible tamponade. Small pericardial effusion on CT, trivial effusion by echo this admission. Code Status full code Discussed Condition With patient Shaheed Villafuerte MD Dec 13, 2016 08:11
[2016-12-13] MEDS: LEVOFLOXACIN 750 MG PREMIX INJ 150 ML IV SCH (08:13)
[2016-12-13] MEDS: PANTOPRAZOLE SODIUM 40 MG VIAL IV SCH (08:13)
[2016-12-13] MEDS: DOCUSATE SODIUM 100 MG CAP PO SCH ×2 (08:14→20:56)
[2016-12-13] MEDS: SODIUM CHLORIDE 0.9% FLUSH 5 ML FLUSH IV FLUSH SCH ×2 (08:14→20:56)
[2016-12-13] MEDS: ASPIRIN EC 81 MG TABEC PO SCH (08:14)
[2016-12-13] MEDS: clonazePAM 0.5 MG TAB PO SCH ×2 (08:15→20:57)
[2016-12-13] MEDS: HEPARIN SODIUM - SQ 10,000 UNITS/ML VIAL SQ SCH ×2 (08:15→20:57)
[2016-12-13] MEDS: POLYETHYLENE GLYCOL 17 GM PKG PO SCH (08:15)
[2016-12-13] MEDS: DILTIAZEM-CD 180 MG CAP ER PO SCH (08:40)
[2016-12-13] MEDS: SODIUM CHLORIDE 0.9% FLUSH 5 ML FLUSH IVF SCH (09:00)
[2016-12-13] MEDS: ARTIFICIAL TEARS OPTH SOLN 15 ML BTL EACH EYE SCH ×3 (09:00→18:00)
--- NOTE | 2016-12-13 09:39 | RADRPT ---
EXAM DATE/TIME: 12/13/2016 08:52 [facility] COMPARISON: CHEST SINGLE AP, December 11, 2016, 3:11. INDICATIONS: Pneumonia. MEDICAL HISTORY: Cardiovascular disease. Hypertension SURGICAL HISTORY: Hysterectomy. ENCOUNTER: Subsequent ACUITY: 4 - 6 days PAIN SCORE: 0/10 LOCATION: Bilateral chest FINDINGS: Bibasilar patchiness is noted consistent with atelectasis and/or infiltrates. Clinical correlation i s recommended. Small bilateral pleural effusions are noted. The heart is mildly prominent but stabl e. The endotracheal tube, nasogastric tube and left internal jugular central line have been removed. CONCLUSION: 1. Bibasilar patchiness consistent with atelectasis and/or infiltrates. 2. Small bilateral pleural effusions. 3. Cardiomegaly. Chilo Lamar MD on December 13, 2016 at 9:26 Board Certified Radiologist. This report was verified electronically.
[2016-12-13] MEDS: VENLAFAXINE HCL XR 75 MG CAP PO SCH (09:50)
[2016-12-13] MEDS: VANCOMYCIN INJ 1,250 MG in SODIUM CHLOR 0.9% 250 ML INJ 250 ML IV SCH ×2 (10:30→23:51)
[2016-12-13] MEDS: MENTHOL LOZENGE BUCCAL PRN (17:08)
[2016-12-13] MEDS: DIVALPROEX SODIUM E.R. 250 MG TAB PO SCH (20:57)
[2016-12-13] MEDS ORDERED: traZODone HCL 50 MG TAB PO ONE (23:45)
--- NOTE | 2016-12-13 23:48 | HHI.PR ---
Subjective Remarks Patient seen today around 11 AM. Says she is feeling better than yesterday. Reports pain is better as well. Would like to get up to chair. Nonproductive cough continues. Objective Vital Signs Date Time Temp Pulse Resp B/P Pulse Ox O2 Delivery O2 Flow Rate FiO2 12/13/16 22:00 77 12/13/16 21:56 20 12/13/16 20:44 98 21 12/13/16 20:00 97.7 80 20 143/63 93 12/13/16 20:00 80 12/13/16 18:00 84 12/13/16 16:00 69 12/13/16 16:00 97.6 69 23 138/64 92 12/13/16 14:00 66 12/13/16 12:00 63 12/13/16 12:00 97.9 63 16 109/55 93 12/13/16 10:00 64 12/13/16 09:56 98 Nasal Cannula 2.00 12/13/16 08:00 98.1 57 57 124/56 98 12/13/16 08:00 64 12/13/16 06:00 74 12/13/16 04:00 70 12/13/16 04:00 98.5 70 20 126/60 94 12/13/16 02:00 79 12/13/16 00:00 112 12/13/16 00:00 99.0 112 20 117/66 92 I/O 12/12/16 12/12/16 12/12/16 12/13/16 12/13/16 12/13/16 07:00 15:00 23:00 07:00 15:00 23:00 Intake Total 400 ml 600 ml 980 ml 720 ml 1288 ml 684 ml Output Total 1450 ml 1200 ml 1300 ml 1000 ml 1500 ml 250 ml Balance -1050 ml -600 ml -320 ml -280 ml -212 ml 434 ml Intake Oral 250 ml 600 ml 720 ml 720 ml 888 ml 684 ml IV Total 150 ml 260 ml 400 ml Output Urine Total 1450 ml 1200 ml 1300 ml 1000 ml 1500 ml 250 ml # Voids 2 # Bowel Movements 0 1 0 1 Result Diagram: 12/13/16 0353 12/13/16 0353 Objective Remarks GENERAL: patient sitting up in bed. Appears comfortable. She appears calm today SKIN: Warm and dry. HEAD: Normocephalic. EYES: No scleral icterus. No injection or drainage. NECK: Supple, trachea midline. No JVD. CARDIOVASCULAR: Regular rate and rhythm without murmurs, gallops, or rubs. RESPIRATORY: Breath sounds equal bilaterally. No accessory muscle use. GASTROINTESTINAL: Abdomen soft, non-tender, nondistended. MUSCULOSKELETAL: No cyanosis, or edema. BACK: Nontender without obvious deformity. No CVA tenderness. A/P Assessment and Plan 12/13/16 -heart rate stable on lower dose of diltiazem. -Altered mental status improved on home antipsychotic regimen -ordered for transfer to floor, however med not available. -appreciate pulmonology assistance. -Constipation resolved. Neuro/Psych: //Acute encephalopathy //Bipolar disorder //History of sciatica //History of implanted morphine pump - managed by Dr. Duncan -Sedation has been discontinued. -Altered mental status has improved. CT showed no acute intracranial findings 12/12-Depakote was initially held, however we'll restart. No history of seizures. 12/12 Antipsych meds restarted. =mental status much improved on home medications. CV: //Symptomatically bradycardia - likely medication induced //History of organizing fibrinous pericarditis //Mitral valve prolapse //History of atrial fibrillation //Small pericardial effusion CT revealed 1 cm small pericardial effusion without tamponade features Evaluated by Dr. Jerry/cardiology. -Cardiology recommends holding amiodarone,beta hunter and psychiatric medications. =continue lower dose of diltiazem as per cardiology. Resp: //Acute hypoxemic respiratory failure //History of mild intermittent asthma //Small bilateral pleural effusions /Possible healthcare associated pneumonia/ -Extubated 12/11. CT thorax revealed 1 cm small pericardial effusion. Otherwise unremarkable -Echocardiogram with trivial pericardial effusion. Normal ejection fraction 55 60 percent. -Continue oxygen as necessary. -12/12. Increasing white count. CT chest from 12/10 reviewed. Start vancomycin. Continue Levaquin. History of penicillin allergy. =appreciate pulmonology assistance. Likely hyperglycemia of critical illness. On admission. No history of diabetes. Discontinue sliding scale. Hypothyroidism. TSH acceptable. Continue Synthroid. /Constipation 12/12. Cathartics ordered. -Continue to monitor. Heme: //Leukocytosis. Acute. On admission. -12/12. Increase in white count to 21. Patient overall appears to be improving. We'll order ESR and CRP. //Normocytic anemia. -12/12. Hemoglobin decreased to 7.9 from 9.5. Likely dilutional secondary to fluids. No signs of bleeding. 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 Continue at discharge. //Prophylaxis. Heparin. Discharge Planning transfer to floor. PT following. Appreciate case management assistance. Carlos Todd MD Dec 13, 2016 23:48
[2016-12-14] VITALS (8 sets, daily range): BP systolic 128–149; BP diastolic 62–71; PULSE 58–81; RESP 12–27; TEMP 97.5–98; O2SAT 91–95
[2016-12-14] MEDS: MENTHOL LOZENGE BUCCAL PRN (00:09)
[2016-12-14] MEDS: RESP: ALBUTEROL 2.5 MG/IPRATROPIUM 0.5 MG NEB (SCH) INH ×2 (03:17→09:15)
[2016-12-14] MEDS: CHLORHEXIDINE GLUCONATE 2 % 1 PACK (2 CLOTHS) TOP SCH (04:00)
[2016-12-14] MEDS: LEVOTHYROXINE SODIUM 75 MCG TAB PO SCH (06:02)
--- NOTE | 2016-12-14 06:32 | MB ---
cc: SAMMY RIZO DATE OF CONSULTATION 12/13/2016 REASON FOR CONSULTATION Pleural effusion and atelectasis. HISTORY OF PRESENT ILLNESS This is a 71-year-old white female who is previously known to me with a past history of pleural and pericardial effusion, was recently discharged from the hospital and had been treated for pericardial effusion with a pericardial window. The patient apparently was brought to the hospital with altered mental status and severe bradycardia and hypotension. She had to be intubated emergently, placed on ventilator support and a CT of the chest showed a small pericardial effusion without tamponade and there was some atelectasis at the bases. She was also hypotensive and minimally responsive at that time but she recovered nicely after being intubated and was placed on dopamine drip and IV fluid hydration. Subsequent to that the patient was weaned off the ventilator and extubated and now she is on oxygen via nasal cannula at 3 liters and maintaining a saturation over 96%. She is alert and oriented, cooperative and denies any chest pains but has mild shortness of breath with exertion and has a dry cough. PAST HISTORY The patient's past history has included - 1. History of bipolar disorder. 2. Atrial fibrillation. 3. Hypertension 4. Recent pericardial window placement. 5. Pleural effusion requiring thoracentesis x 1. 6. History for atrial arrhythmias for which she was on amiodarone and Cardizem . 7. Chronic HSV suppression. 8. Sciatica and spinal stenosis. 9. Asthmatic symptoms. 10. Chronic headaches. 11. Osteoarthritis. 12. Depression. 13. Insomnia. 14. Chronic constipation. PAST SURGICAL HISTORY 1. Spinal cord stimulating device, TENS unit. 2. 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 3. Lumbar fusion. 4. Hysterectomy. 5. Tonsillectomy. 6. Morphine pump placement. 7. Pericardial window placement. ALLERGIES PENICILLIN. SULFA. FELDENE. HYDROXYZINE. FLEXERIL. VISTARIL. LATEX. MED LIST 1. Pacerone 200 mg a day. 2. Fexofenadine 180 mg p.r.n. 3. Centrum Silver one daily. 4. Depakote 750 mg at bedtime. 5. Morphine BUCKLE STRAP PUNCHER pump. 6. Levothyroxine 75 mcg daily. 7. Effexor 150 mg daily. 8. Lasix 20 mg b.i.d. HABITS The patient smoked in the past but not recently. No alcohol. FAMILY HISTORY Hypertension and a stroke as well as asthma. REVIEW OF SYSTEMS The patient has lost weight. She has leg swelling. She has epigastric distress. No nausea, vomiting, no urinary symptoms. He had no leg or calf muscle pains. She does have anxiety with depression. Denies skin lesions. PHYSICAL EXAMINATION GENERAL: This is an elderly, averagely built white female who is pale, alert, mildly dyspneic. VITAL SIGNS: Blood pressure is 110/70, pulse 76, respirations are 18, temperature 97.6. HEENT: Head normocephalic. Pupils are reactive. Tongue moist. Throat is mildly injected. Nasal mucosa edematous. Ears - No inflammation. NECK: Supple. No bruits, thyroid enlargement or lymphadenopathy. CHEST: Equal movements with basilar crackles, more so on the right side. HEART: The heart sounds are irregular. S1 and S2 with no murmur. No S3. ABDOMEN: Soft, protuberant. No masses. EXTREMITIES: Decreased peripheral pulses. Reflexes are normal. There are no gross motor deficits. Cranial nerves grossly intact. RECTAL EXAM: Deferred. IMPRESSION 1. Asthma with chronic bronchitis. 2. Respiratory failure resolved. 3. History of organizing fibrinous pericarditis. 4. Atrial fibrillation, history of. 5. Bipolar disorder 6. Encephalopathy. PLAN 1. The patient has been placed on 2 liters oxygen and incentive spirometry will be added q.i.d. and nebulized albuterol solution q. 6 hours p.r.n. 2. The patient will be placed on Symbicort 160/4.5 one puff twice a day. 3. Follow up chest x-ray in the a.m. 4. We will transfer her to a telemetry floor. Thank you, Dr. Carlos Todd, for this consultation. MD LIA Aviles/REZA /10:56 PM /6:16 AM
[2016-12-14 06:33] LABS: AUTOMATED NEUTROPHIL # 6.6 TH/MM3 (1.8-7.7); BASOPHIL % 0.4 % (0.0-2.0); EOSINOPHIL # 1.3 TH/MM3 (0-0.4); EOSINOPHIL % 12.6 % (0.0-4.0); HEMATOCRIT 24.8 % (35.0-46.0); HEMO FLAGS DIFF FINAL; LYMPH % 20.9 % (9.0-44.0); LYMPHOCYTE # 2.2 TH/MM3 (1.0-4.8); MEAN CELL VOLUME 95.5 FL (80.0-100.0); MEAN CORPUSCULAR HEMOGLOBIN 30.9 PG (27.0-34.0); MEAN CORPUSCULAR HGB CONC 32.4 % (32.0-36.0); NEUT % 62.1 % (16.0-70.0); PLATELET COUNT 354 TH/MM3 (150-450); RED BLOOD COUNT 2.59 MIL/MM3 (4.00-5.30); RED CELL DISTRIBUTION WIDTH 14.8 % (11.6-17.2); WHITE BLOOD COUNT 10.6 TH/MM3 (4.0-11.0)
[2016-12-14 07:05] LABS: BICARBONATE 33.1 MEQ/L (21.0-32.0); MAGNESIUM 2.1 MG/DL (1.5-2.5); POTASSIUM 4.1 MEQ/L (3.5-5.1)
[2016-12-14] MEDS: LEVOFLOXACIN 750 MG PREMIX INJ 150 ML IV SCH (07:46)
[2016-12-14] MEDS: CHLORHEXIDINE 0.12% (ORAL KIT) 15 ML CUP MT SCH (08:00)
[2016-12-14] MEDS: ARTIFICIAL TEARS OPTH SOLN 15 ML BTL EACH EYE SCH ×2 (09:00→13:00)
[2016-12-14] MEDS: SODIUM CHLORIDE 0.9% FLUSH 5 ML FLUSH IVF SCH (09:00)
[2016-12-14] MEDS: ASPIRIN EC 81 MG TABEC PO SCH (09:21)
[2016-12-14] MEDS: SODIUM CHLORIDE 0.9% FLUSH 5 ML FLUSH IV FLUSH SCH (09:21)
[2016-12-14] MEDS: VENLAFAXINE HCL XR 75 MG CAP PO SCH (09:21)
[2016-12-14] MEDS: DOCUSATE SODIUM 100 MG CAP PO SCH (09:21)
[2016-12-14] MEDS: clonazePAM 0.5 MG TAB PO SCH (09:21)
[2016-12-14] MEDS: DILTIAZEM-CD 180 MG CAP ER PO SCH (09:21)
[2016-12-14] MEDS: PANTOPRAZOLE SODIUM 40 MG VIAL IV SCH (09:22)
[2016-12-14] MEDS: POLYETHYLENE GLYCOL 17 GM PKG PO SCH (09:22)
[2016-12-14] MEDS: HEPARIN SODIUM - SQ 10,000 UNITS/ML VIAL SQ SCH (09:22)
[2016-12-14] MEDS: ACETAMINOPHEN/HYDROcodone 325 MG/7.5 MG TAB PO PRN (09:23)
[2016-12-14] MEDS: VANCOMYCIN INJ 1,250 MG in SODIUM CHLOR 0.9% 250 ML INJ 250 ML IV SCH (10:18)
--- NOTE | 2016-12-14 12:56 | HHI.PR ---
Subjective Remarks Feels much better. No fever. No hypotension. Off O2 sat 95.No SOB at rest Objective Vital Signs Date Time Temp Pulse Resp B/P Pulse Ox O2 Delivery O2 Flow Rate FiO2 12/14/16 12:00 71 12/14/16 12:00 97.6 71 27 128/71 93 12/14/16 10:00 81 12/14/16 08:00 58 12/14/16 08:00 97.5 59 12 149/68 94 12/14/16 06:00 64 12/14/16 04:00 97.8 63 24 138/62 95 12/14/16 04:00 63 12/14/16 02:00 64 12/14/16 00:00 98.0 71 22 142/65 91 12/14/16 00:00 71 12/13/16 22:00 77 12/13/16 21:56 20 12/13/16 20:44 98 21 12/13/16 20:00 97.7 80 20 143/63 93 12/13/16 20:00 80 12/13/16 18:00 84 12/13/16 16:00 69 12/13/16 16:00 97.6 69 23 138/64 92 12/13/16 14:00 66 I/O 12/13/16 12/13/16 12/13/16 12/14/16 12/14/16 12/14/16 07:00 15:00 23:00 07:00 15:00 23:00 Intake Total 720 ml 1288 ml 684 ml 373 ml Output Total 1000 ml 1500 ml 250 ml Balance -280 ml -212 ml 434 ml 373 ml Intake Oral 720 ml 888 ml 684 ml 120 ml IV Total 400 ml 253 ml Output Urine Total 1000 ml 1500 ml 250 ml # Voids 2 2 # Bowel Movements 0 1 0 Result Diagram: 12/14/16 0539 12/14/16 0538 Objective Remarks GENERAL: This is an elderly, averagely built white female who is pale, alert, mildly dyspneic. HEENT: Head normocephalic. Pupils are reactive. Tongue moist. Throat is mildly injected. Nasal mucosa clear. Ears - No inflammation. NECK: Supple. No bruits, thyroid enlargement or lymphadenopathy. CHEST: Equal movements with basilar crackles, more so on the right side. HEART: The heart sounds are irregular. S1 and S2 with no murmur. No S3. ABDOMEN: Soft, protuberant. No masses. EXTREMITIES: Decreased peripheral pulses. Reflexes are normal. There are no gross motor deficits. Cranial nerves grossly intact. RECTAL EXAM: Deferred. Assessment and Plan Assessment and Plan IMPRESSION 1. Asthma with chronic bronchitis. 2. Respiratory failure resolved. 3. History of organizing fibrinous pericarditis. 4. Atrial fibrillation, history of. 5. Bipolar disorder 6. Encephalopathy. Plan : 1. D/C O2. 2. Continue ventolin HFA , 2puffs tid prn. 3. Cont Diuretic daily. 4. Up with help. 5. Continue antibiotics and switch to PO levaquin 6. Home per Mariann Lemus MD Dec 14, 2016 12:56
[2016-12-14] MEDS ORDERED: CARD180C5 PO (13:22)
[2016-12-14] MEDS ORDERED: LEVA500T PO (13:22)
[2016-12-14] MEDS ORDERED: VENTAER INH (13:22)
[2016-12-15] MEDS ORDERED: LEVOFLOXACIN 500 MG TAB PO SCH (09:00)
--- NOTE | 2016-12-18 08:00 | HHI.PR ---
Subjective Remarks date of service 12/14/16. Patient seen the morning of 12/14/16. Says she is feeling great. Would like to go home. Denies any chest pain, shortness of breath, nausea, vomiting, lightheadedness, dizziness. She says she has a walker , would not like to go to rehabilitation, SNF, and declines home health. Objective Result Diagram: 12/14/16 0539 12/14/16 0538 Objective Remarks GENERAL: patient sitting up in bed. Appears comfortable. She appears calm today. Smiling today.alert and oriented 4. SKIN: Warm and dry. HEAD: Normocephalic. EYES: No scleral icterus. No injection or drainage. NECK: Supple, trachea midline. No JVD. CARDIOVASCULAR: Regular rate and rhythm without murmurs, gallops, or rubs. RESPIRATORY: Breath sounds equal bilaterally. No accessory muscle use. GASTROINTESTINAL: Abdomen soft, non-tender, nondistended. MUSCULOSKELETAL: No cyanosis, or edema. BACK: Nontender without obvious deformity. No CVA tenderness. A/P Assessment and Plan 12/14/16 -heart rate continues stable on lower dose of diltiazem. -Altered mental status patient reports back to baseline on home antipsychotic regimen -ordered for transfer to floor, however bed not available. -appreciate pulmonology assistance. and transitioned to by mouth Levaquin to complete treatment course. -Constipation resolved. Neuro/Psych: //Acute encephalopathy //Bipolar disorder //History of sciatica //History of implanted morphine pump - managed by Dr. Duncan -Sedation has been discontinued. -Altered mental status has improved. CT showed no acute intracranial findings 12/12-Depakote was initially held, however we'll restart. No history of seizures. 12/12 Antipsych meds restarted. =mental status much improved on home medications. CV: //Symptomatically bradycardia - likely medication induced //History of organizing fibrinous pericarditis //Mitral valve prolapse //History of atrial fibrillation //Small pericardial effusion CT revealed 1 cm small pericardial effusion without tamponade features Evaluated by Dr. Jerry/cardiology. -Cardiology recommends holding amiodarone,beta hunter and psychiatric medications. =continue lower dose of diltiazem as per cardiology. Resp: //Acute hypoxemic respiratory failure //History of mild intermittent asthma //Small bilateral pleural effusions /Possible healthcare associated pneumonia/ -Extubated 12/11. CT thorax revealed 1 cm small pericardial effusion. Otherwise unremarkable -Echocardiogram with trivial pericardial effusion. Normal ejection fraction 55 60 percent. -Continue oxygen as necessary. -12/12. Increasing white count. CT chest from 12/10 reviewed. Start vancomycin. Continue Levaquin. History of penicillin allergy. =appreciate pulmonology assistance. Likely hyperglycemia of critical illness. On admission. No history of diabetes. Discontinue sliding scale. Hypothyroidism. TSH acceptable. Continue Synthroid. /Constipation 12/12. Cathartics ordered. -Continue to monitor. Heme: //Leukocytosis. Acute. On admission. -12/12. Increase in white count to 21. Patient overall appears to be improving. We'll order ESR and CRP. //Normocytic anemia. -12/12. Hemoglobin decreased to 7.9 from 9.5. Likely dilutional secondary to fluids. No signs of bleeding. 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 Continue at discharge. //Prophylaxis. Heparin. Discharge Planning discharge home. Patient declines home health, SNF, rehabilitation. Has walker. PT following. Appreciate case management assistance. Carlos Todd MD Dec 18, 2016 08:00
--- NOTE | 2016-12-18 08:02 | HHI.DS ---
Discharge Summary Admission Date Dec 10, 2016 at 17:41 Discharge Date: Dec 14, 2016 Admitting Diagnosis bradycardia,hypotension,AMS (1) Bradycardia ICD Code: R00.1 Diagnosis: Principal (2) Toxic metabolic encephalopathy ICD Code: G92 Diagnosis: Principal (3) s/p pericardial window Diagnosis: Principal (4) Asthmatic bronchitis , chronic ICD Code: J44.9 Diagnosis: Principal (5) Bipolar 1 disorder ICD Code: F31.9 Diagnosis: Principal (6) Anemia ICD Code: D64.9 Diagnosis: Principal (7) Cervical radiculopathy, chronic ICD Code: M54.12 Diagnosis: Principal (8) Respiratory failure ICD Code: J96.90 Diagnosis: Principal (9) Hypotension ICD Code: I95.9 Diagnosis: Principal (10) Hyperkalemia ICD Code: E87.5 Procedures thoracentesis Brief History - From Admission 71-year-old female. Date of admission 12/10/2016. 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 She had an open pericardial window by Dr. Anisha Fox removing 400 cc D bloody fluid negative cytology. Postoperative course was consulted by atrial fibrillation requiring amiodarone and Cardizem which was sent home on. Is possible she was also on a beta hunter. She also had a thoracentesis by Dr. Mason 750 cc left -sided. She presents to [facility] from home with altered mental status. She is noted to be hypotensive, bradycardic and minimally responsive. She was given 1 dose of atropine in route/1 mg without result. Pacer pads are placed without result. Patient was emergently intubated with 20 mg etomidate and 80 mg succinylcholine using a 7.5 ET tube. Resulting imaging revealed CT chest small pericardial effusion by 1 cm without tamponade features. CT head unremarkable. Dr. Jerry/cardiology saw the patient. Believe this is from polypharmacy. Recommend holding all her cardiac medications psychiatric overnight. Start patient on dopamine drip which is currently 15 mg/kg/m and patient be seen in [facility] cardiology. CBC/BMP: 12/14/16 0539 12/14/16 0538 Imaging Last Impressions Chest X-Ray 12/13/16 0000 Signed Impressions: Service Date/Time: Tuesday, December 13, 2016 08:52 - CONCLUSION: 1. Bibasilar patchiness consistent with atelectasis and/or infiltrates. 2. Small bilateral pleural effusions. 3. Cardiomegaly. Chilo Lamar MD Head CT 12/10/16 0000 Signed Impressions: Service Date/Time: Saturday, December 10, 2016 16:56 - CONCLUSION: Unremarkable noncontrast CT. Sergei Chowdhury MD Chest CT 12/10/16 0000 Signed Impressions: Service Date/Time: Saturday, December 10, 2016 16:55 - CONCLUSION: 1. The heart size is moderately enlarged and there is a small pericardial effusion. This measures up to approximately 1 cm in thickness. 2. Multilevel pleural effusions right greater than left with consolidation in both posterior lung bases. Sergei Chowdhury MD Hospital Course Patient was found be bradycardic, likely secondary to high doses of antiarrhythmics. Initially managed with holding all cardiac medications, giving atropine with improvement and normalization of heart rate. Echocardiogram was performed and showed small 1 cm pericardial effusion. Cardiology was consulted, diltiazem dose was decreased, amiodarone was held. Patient was also found to have pneumonia, which pulmonology was consult, and treated with antibiotics.She also was found to have pleural effusion, and underwent thoracentesis by pulmonology of 750 cc. patient's vitals normalized. Physical therapy was consult, however patient adamantly declines any rehabilitation, retirement facility, or home health. Has walker at home. She will need to follow-up with cardiology, primary care. She'll need repeat chest x-ray in 1-2 weeks. For problem-based summary for most recent progress note, please see below. 12/14/16 -heart rate continues stable on lower dose of diltiazem. -Altered mental status patient reports back to baseline on home antipsychotic regimen -ordered for transfer to floor, however bed not available. -appreciate pulmonology assistance. and transitioned to by mouth Levaquin to complete treatment course. -Constipation resolved. Neuro/Psych: //Acute encephalopathy //Bipolar disorder //History of sciatica //History of implanted morphine pump - managed by Dr. Duncan -Sedation has been discontinued. -Altered mental status has improved. CT showed no acute intracranial findings 12/12-Depakote was initially held, however we'll restart. No history of seizures. 12/12 Antipsych meds restarted. =mental status much improved on home medications. CV: //Symptomatically bradycardia - likely medication induced //History of organizing fibrinous pericarditis //Mitral valve prolapse //History of atrial fibrillation //Small pericardial effusion CT revealed 1 cm small pericardial effusion without tamponade features Evaluated by Dr. Jerry/cardiology. -Cardiology recommends holding amiodarone,beta hunter and psychiatric medications. =continue lower dose of diltiazem as per cardiology. Resp: //Acute hypoxemic respiratory failure //History of mild intermittent asthma //Small bilateral pleural effusions /Possible healthcare associated pneumonia/ -Extubated 12/11. CT thorax revealed 1 cm small pericardial effusion. Otherwise unremarkable -Echocardiogram with trivial pericardial effusion. Normal ejection fraction 55 60 percent. -Continue oxygen as necessary. -12/12. Increasing white count. CT chest from 12/10 reviewed. Start vancomycin. Continue Levaquin. History of penicillin allergy. =appreciate pulmonology assistance. Likely hyperglycemia of critical illness. On admission. No history of diabetes. Discontinue sliding scale. Hypothyroidism. TSH acceptable. Continue Synthroid. /Constipation 12/12. Cathartics ordered. -Continue to monitor. Heme: //Leukocytosis. Acute. On admission. -12/12. Increase in white count to 21. Patient overall appears to be improving. We'll order ESR and CRP. //Normocytic anemia. -12/12. Hemoglobin decreased to 7.9 from 9.5. Likely dilutional secondary to fluids. No signs of bleeding. 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 Continue at discharge. //Prophylaxis. Heparin. Discharge Planning discharge home. Patient declines home health, SNF, rehabilitation. Has walker. PT following. Appreciate case management assistance. Pt Condition on Discharge: Good Discharge Disposition: Discharge Home Discharge Time: > 30 minutes Discharge Instructions DIET: Follow Instructions for: Heart Healthy Diet Speech Therapy-Diet Recommends: Regular Activities you can perform: Regular-No Restrictions Follow up Referrals: Cardiology - 12/21/16 with Shaheed Villafuerte MD PCP Follow-up - 1 Week New Medications: Albuterol 18 GM Inh (Ventolin Hfa 18 GM Inh) 90 Mcg/Act Aer 2 PUFF INH Q4-6H PRN SHORTNESS OF BREATH #1 Ref 0 INHALER Diltiazem CD 24 HR (Cardizem CD 24 HR) 180 Mg Caper 180 MG PO DAILY heart Days 30 CAP Levofloxacin (Levaquin) 500 Mg Tab 500 MG PO DAILY pneumonia Days 5 TAB Continued Medications: Acetaminophen ER 8 HR (Arthritis Pain ER 8 HR) 650 Mg Tab 1300 MG PO Q8HR PRN PAIN SCALE 1 TO 10 TAB Acyclovir (Zovirax) 800 Mg Tab 800 MG PO BID Mgmt Viral Infection Ref 0 TAB Ibbbd-K-Gbuzspburvorn (Gas-X Prevention) 1 Cap 1 CAP PO DAILY PRN FLATULENCE CAP Aspirin DR (Aspirin EC) 81 Mg Tabdr 81 MG PO DAILY antiplatelet Days 30 Ref 0 TAB Benzonatate (Tessalon Perles) 100 Mg Cap 100-200 MG PO TID PRN COUGH Ref 0 CAP Biotin (Biotin) 5,000 Mcg Cap 5000 MCG PO DAILY #1 BOTTLE Clonazepam (Klonopin) 0.5 Mg Tab 0.5 MG PO BID Anxiety #20 Ref 0 TAB Divalproex ER (Depakote ER) 250 Mg Sammie 750 MG PO HS Control Seizures #90 Ref 0 TAB Fexofenadine (Fexofenadine) 180 Mg Tab 180 MG PO DAILY PRN ALLERGIES #30 Ref 0 TAB Levothyroxine (Levothyroxine) 75 Mcg Tab 75 MCG PO DAILY Thyroid #30 Ref 0 TAB Morphine FIELD TRAINING AGENT Inj (Morphine FIELD TRAINING AGENT Inj) 30 Mg/30 Ml Vial Unknown Dose IV DIRECTED FIELD TRAINING AGENT VIAL Multiple Vitamins W/ Minerals (Centrum Silver Adult 50+) 1 Tab Tab 1 TAB PO DAILY Quetiapine (Seroquel) 50 Mg Tab 50 MG PO HS #30 Ref 0 TAB Venlafaxine ER 24 HR (Effexor XR 24 HR) 150 Mg Cap 150 MG PO DAILY #30 Ref 0 CAP Discontinued Medications: Amiodarone (Pacerone) 200 Mg Tab 200 MG PO DAILY Regulate Heart Beat #30 Ref 0 TAB Diltiazem (Cardizem) 60 Mg Tab 60 MG PO Q6HR a-fib Days 30 Ref [address] (Depakote DR) 250 Mg Tabdr 250 MG PO HS Control Seizures #60 Ref 0 TAB Furosemide (Lasix) 20 Mg Tab 20 MG PO BID #60 Ref 0 TAB Ibuprofen (Ibuprofen) 200 Mg Cap 200 MG PO Q4-6H PRN MILD PAIN/FEVER Ref 0 CAP Potassium Chloride ER (Potassium Chloride ER) 10 Meq Cap 10 MEQ PO DAILY Electrolyte Replacement #30 Ref 0 CAP Carlos Todd MD Dec 18, 2016 08:02
[2016-12-18 08:41] LABS: DRAW SITE RT RADIAL
== END 2016-12-14 15:08 | disposition home or self-care (01) | DRG 308 ==
LOC: NEPE 15:04 → NEDA 17:41 → HIMW 20:10
PROVIDERS: ADMIT Internal Medicine; ATTEND Internal Medicine
PROC: 0BH17EZ Insertion of Endotracheal Airway into Trachea, Via Natural or Artificial Opening (ICD-10-PCS; principal; 2016-12-10)
PROC: 5A1935Z Respiratory Ventilation, Less than 24 Consecutive Hours (ICD-10-PCS; 2016-12-10)
PROC: 02HV33Z Insertion of Infusion Device into Superior Vena Cava, Percutaneous Approach (ICD-10-PCS; 2016-12-10)
DX: R00.1 Bradycardia, unspecified (principal); G92 Toxic encephalopathy; J96.01 Acute respiratory failure with hypoxia; J44.9 Chronic obstructive pulmonary disease, unspecified; J18.9 Pneumonia, unspecified organism; I95.9 Hypotension, unspecified; E87.5 Hyperkalemia; D64.9 Anemia, unspecified; F31.9 Bipolar disorder, unspecified; T50.995A Adverse effect of other drugs, medicaments and biological substances, initial encounter; M54.12 Radiculopathy, cervical region; I48.0 Paroxysmal atrial fibrillation; I10 Essential (primary) hypertension; J30.9 Allergic rhinitis, unspecified; Z85.828 Personal history of other malignant neoplasm of skin; Z98.82 Breast implant status; E03.9 Hypothyroidism, unspecified; Z79.82 Long term (current) use of aspirin; K59.00 Constipation, unspecified; R73.9 Hyperglycemia, unspecified; Z88.0 Allergy status to penicillin; Z96.89 Presence of other specified functional implants; G89.29 Other chronic pain; M54.9 Dorsalgia, unspecified; Y95 Nosocomial condition; I34.1 Nonrheumatic mitral (valve) prolapse
CPT/HCPCS: 31500; 36600; 51702; 70450; 71010; 71250; 80048; 80053; 80069; 80164; 80185; 80307; 82435; 82550; 82565; 82805; 82947; 82948; 83605; 83735; 84100; 84132; 84295; 84443; 84484; 84520; 85007; 85025; 85027; 85610; 85652; 85730; 86140; 87641; 93005; 93308; 94002; 94003; 94640; 94664; 96365; 96366; 99292; C9113; J0330; J0461; J0610; J1265; J1644; J1815; J1956; J2250; J2270; J2405; J3010; J3370; J7030; J7050; J7613

== ENCOUNTER 2017-02-07 13:52 | Emergency (ER) | payer MEDICARE, OTHER ==
[~2017-02-07] VITALS: Ht 154.9 cm; Wt 70.0 kg
[~2017-02-07 13:52] MED LIST changes: +ACET5TAB2 PO; -AMIO200T PO; -ATROPINE SULFATE 1 MG/10 ML SYRINGE IV ONE; +BENZ100 PO; +BIOT50005 PO; +CARD180C5 PO; -COLA100C3 PO; -DEPA250T2 PO; -DILT60TA33 PO; +DIVA250ER PO; -ESTR2TAB4 PO; +FEXO180T PO; -FURO1TAB60 PO; -FURO20TA PO; -GABA300C5 PO; -HYDR-3516 PO; -IPRASOL INH; -LACTCAP8 PO; +LEVA500T PO; -MELA3CAP PO; -META48.53 PO; -MIRA33504 PO; +MULT1TAB PO; -NALO1TAB2 PO; -POTA10CA PO; -PRESCAP5 PO; -REST0.05 EACH EYE; -TRIAM.1%T TOPICAL; +VENTAER INH; -VITA200013 PO; +[UNRECOGNIZED DRUG - CODE] PO
[2017-02-07 13:56] VITALS: BP 130/60; PULSE 70; RESP 20; TEMP 98.5; O2SAT 95
--- NOTE | 2017-02-07 14:53 | PD ---
HPI Chief Complaint: Cardiac Complaint Time Seen by Provider: 14:53 Travel History International Travel<30 days: No Contact w/Intl Traveler<30days: No Traveled to known affect area: No History of Present Illness HPI 71-year-old female presents to the emergency department for evaluation of increased shortness of breath 20 pound weight gain. Patient states she's had increased shortness of breath and a 20 pound weight gain over the past 7-10 days. Patient was admitted in October to [facility] for pneumonia. She was discharged and then was admitted later in October for a large pericardial effusion. It was thought to be from a pericarditis. Later in November , she was admitted for respiratory distress and was intubated. His thought to be from polypharmacy at that time. The patient saw her primary care physician on Sunday and her Lasix was increased to 40 mg daily. She reports a 3 pound weight loss since her Lasix was increased. Patient has history of chronic back pain and has a pain pump and a spinal stimulator. She denies any fevers. She does report an increased cough today. No abdominal pain. No nausea, vomiting, diarrhea. Patient is concerned she has a reoccurring pericardial effusion. PFSH Past Medical History Anemia: Yes Arthritis: Yes (thoracic and lumbar spine) Asthma: Yes (childhood) Autoimmune Disease: Yes (METABOLIC ENCEPHILITIS) Bipolar Disorder: Yes Anxiety: Yes Heart Rhythm Problems: No Cancer: No Cardiovascular Problems: Yes High Cholesterol: No Chest Pain: No Congestive Heart Failure: No COPD: No Cerebrovascular Accident: No Diabetes: No Diminished Hearing: No Endocrine: No Gastrointestinal Disorders: Yes GERD: No Glaucoma: No Genitourinary: No Headaches: Yes Hepatitis: No Hiatal Hernia: No Immune Disorder: No Kidney Stones: No Psychiatric: Yes (BIPOLAR) Reproductive: No Respiratory: Yes Immunizations Current: No Migraines: Yes Pneumonia: Yes Renal Failure: No Seizures: No Sleep Apnea: No Thyroid Disease: Yes Ulcer: No Menopausal: Yes Past Surgical History Abdominal Surgery: Yes AICD: No Body Medical Devices: SPINAL CORD STIMULATING LEADS AND GENERATOR, MORPHINE PUMP Cardiac Surgery: No Ear Surgery: Yes (mass removed from right ear) Endocrine Surgery: No Eye Surgery: No Genitourinary Surgery: No Gynecologic Surgery: Yes (hysterectomy) Hysterectomy: Yes Joint Replacement: No Neurologic Surgery: Yes (TENS, SPINAL CORD STIMULATOR IMPL.) Oral Surgery: No Pacemaker: No Thoracic Surgery: No Tonsillectomy: Yes Other Surgery: Yes Social History Alcohol Use: No Tobacco Use: No Substance Use: No Allergies-Medications (Allergen,Severity, Reaction): Coded Allergies: Penicillin (Verified Allergy, Severe, hives, 12/10/16) Sulfa (Verified Allergy, Severe, hives, 12/10/16) Latex (Verified Allergy, Intermediate, rash, 12/10/16) Feldene (Verified Allergy, Unknown, 12/10/16) Hydroxyzine (Verified Allergy, Unknown, 12/10/16) Flexeril (Unverified Adverse Reaction, Intermediate, PAU, 12/10/16) Vistaril (Unverified Adverse Reaction, Unknown, 12/10/16) Reported Meds & Prescriptions Reported Meds & Active Scripts Active Ventolin Hfa 18 GM Inh (Albuterol Sulfate) 90 Mcg/Act Aer 2 Puff INH Q4-6H PRN Levaquin (Levofloxacin) 500 Mg Tab 500 Mg PO DAILY 5 Days Cardizem CD 24 HR (Diltiazem CD 24 HR) 180 Mg Caper 180 Mg PO DAILY 30 Days Aspirin EC (Aspirin) 81 Mg Tabdr 81 Mg PO DAILY 30 Days Klonopin (Clonazepam) 0.5 Mg Tab 0.5 Mg PO BID Reported Tessalon Perles (Benzonatate) 100 Mg Cap 100-200 Mg PO TID PRN Fexofenadine (Fexofenadine HCl) 180 Mg Tab 180 Mg PO DAILY PRN Biotin 5,000 Mcg Cap 5,000 Mcg PO DAILY Gas-X Prevention ([id number]) 1 Cap 1 Cap PO DAILY PRN Centrum Silver Adult 50+ (Multiple Vitamins W/ Minerals) 1 Tab Tab 1 Tab PO DAILY Arthritis Pain ER 8 HR (Acetaminophen) 650 Mg Tab 1,300 Mg PO Q8HR PRN Depakote ER (Divalproex Sodium) 250 Mg Sammie 750 Mg PO HS Zovirax (Acyclovir) 800 Mg Tab 800 Mg PO BID Morphine BROWNING PROCESSOR Inj (Morphine Sulfate) 30 Mg/30 Ml Vial Unknown Dose IV DIRECTED BROWNING PROCESSOR Levothyroxine (Levothyroxine Sodium) 75 Mcg Tab 75 Mcg PO DAILY Seroquel (Quetiapine Fumarate) 50 Mg Tab 50 Mg PO HS Effexor XR 24 HR (Venlafaxine HCl) 150 Mg Cap 150 Mg PO DAILY Review of Systems Except as stated in HPI: all other systems reviewed are Neg Physical Exam Narrative GENERAL: Well-nourished, well-developed female patient, ambulatory with a steady gait. Afebrile. SKIN: Focused skin assessment warm/dry. HEAD: Normocephalic. Atraumatic. EYES: No scleral icterus. No injection or drainage. NECK: Supple, trachea midline. No JVD or lymphadenopathy. CARDIOVASCULAR: Regular rate and rhythm without murmurs, gallops, or rubs. Bilateral radial and pedal pulses 2+. RESPIRATORY: Breath sounds equal bilaterally. No accessory muscle use. Lungs sounds clear to auscultation. GASTROINTESTINAL: Abdomen soft, non-tender, nondistended. MUSCULOSKELETAL: No cyanosis. 1-2+ bilateral lower extremity edema. BACK: Nontender without obvious deformity. No CVA tenderness. Data Data Last Documented VS Vital Signs Date Time Temp Pulse Resp B/P Pulse Ox O2 Delivery O2 Flow Rate FiO2 02/07/17 14:58 98 Room Air 02/07/17 14:45 64 22 02/07/17 13:56 98.5 130/60 Orders Electrocardiogram (02/07/17 14:50) B-Type Natriuretic Peptide (02/07/17 14:50) Ckmb (Isoenzyme) Profile (02/07/17 14:50) Complete Blood Count With Diff (02/07/17 14:50) Comprehensive Metabolic Panel (02/07/17 14:50) Magnesium (Mg) (02/07/17 14:50) Prothrombin Time / Inr (Pt) (02/07/17 14:50) Act Partial Throm Time (Ptt) (02/07/17 14:50) Troponin I (02/07/17 14:50) Chest, Single Ap (02/07/17 14:50) Ecg Monitoring (02/07/17 14:50) Bilateral Bp Monitoring (02/07/17 14:50) Iv Access Insert/Monitor (02/07/17 14:50) Oximetry (02/07/17 14:50) Oxygen Administration (02/07/17 14:50) Sodium Chloride 0.9% Flush (Ns Flush) (02/07/17 15:00) Urinalysis - C+S If Indicated (02/07/17 14:50) Ed Poc Ultrasound (02/07/17 ) Labs Laboratory Tests Test 02/07/17 15:00 White Blood Count 8.6 TH/MM3 Red Blood Count 3.53 MIL/MM3 Hemoglobin 10.7 GM/DL Hematocrit 32.9 % Mean Corpuscular Volume 93.2 FL Mean Corpuscular Hemoglobin 30.4 PG Mean Corpuscular Hemoglobin 32.6 % Concent Red Cell Distribution Width 17.6 % Platelet Count 282 TH/MM3 Mean Platelet Volume 8.6 FL Neutrophils (%) (Auto) 64.0 % Lymphocytes (%) (Auto) 22.5 % Monocytes (%) (Auto) 9.0 % Eosinophils (%) (Auto) 4.1 % Basophils (%) (Auto) 0.4 % Neutrophils # (Auto) 5.5 TH/MM3 Lymphocytes # (Auto) 1.9 TH/MM3 Monocytes # (Auto) 0.8 TH/MM3 Eosinophils # (Auto) 0.4 TH/MM3 Basophils # (Auto) 0.0 TH/MM3 CBC Comment DIFF FINAL Differential Comment Prothrombin Time 10.2 SEC Prothromb Time International 0.9 RATIO Ratio Activated Partial 26.9 SEC Thromboplast Time Urine Color YELLOW Urine Turbidity HAZY Urine pH 6.0 Urine Specific [place] 1.015 Urine Protein NEG mg/dL Urine Glucose (UA) NEG mg/dL Urine Ketones NEG mg/dL Urine Occult Blood TRACE Urine Nitrite NEG Urine Bilirubin NEG Urine Urobilinogen LESS THAN 2.0 MG/DL Urine Leukocyte Esterase NEG Urine RBC 3 /hpf Urine WBC LESS THAN 1 /hpf Urine Squamous Epithelial 12 /hpf Cells Urine Bacteria OCC /hpf Urine Mucus FEW /lpf Microscopic Urinalysis Comment CULT NOT INDICATED Sodium Level 132 MEQ/L Potassium Level 5.0 MEQ/L Chloride Level 95 MEQ/L Carbon Dioxide Level 33.8 MEQ/L Anion Gap 3 MEQ/L Blood Urea Nitrogen 21 MG/DL Creatinine 0.67 MG/DL Estimat Glomerular Filtration 87 ML/MIN Rate Random Glucose 73 MG/DL Calcium Level 9.0 MG/DL Magnesium Level 2.3 MG/DL Total Bilirubin 0.1 MG/DL Aspartate Amino Transf 14 U/L (AST/SGOT) Alanine Aminotransferase 14 U/L (ALT/SGPT) Alkaline Phosphatase 60 U/L Total Creatine Kinase 92 U/L Troponin I LESS THAN 0.02 NG/ML B-Type Natriuretic Peptide 207 PG/ML Total Protein 7.4 GM/DL Albumin 3.2 GM/DL MDM Medical Decision Making Medical Screen Exam Complete: Yes Emergency Medical Condition: Yes Medical Record Reviewed: Yes Differential Diagnosis CHF versus pleural effusion versus pneumonia versus ACS Narrative Course 71-year-old female presents to the emergency department for evaluation of increased shortness breath, 20 pound weight gain. EKG, CBC, CMP, magnesium, troponin, CK, BNP, PTT, PTT/INR, UA, chest x-ray are ordered and pending. My attending physician, Dr. Winchester, performed bedside US. No pericardial effusion present. EKG shows SR, HR 60, no acute ST changes. CBC shows no acute abnormality. CMP shows carbon dioxide 33.8, BUN 21, glucose 73. BNP is 207. CK is 92. Troponin is less than 0.02. Magnesium is 2.3. Coags are unremarkable. UA is negative for acute infection. Chest x-ray was read by my attending physician, Dr. Winchester, who states no significant change, no acute abnormality. My attending physician, Dr. Winchester, has examined the patient as well. He agrees with plan and disposition. I discussed results with the patient he would like to go home. The patient is to continue her increased dosage of Lasix, 40 mg daily and follow-up with Dr. Villafuerte, her securities analyst and her primary care physician. She verbalizes agreement. She is return for any acute worsening of symptoms. The patient was discharged in stable condition with instructions, including return instructions and follow up instructions. Diagnosis Primary Impression: Edema Qualified Code: R60.9 - Edema, unspecified type Referrals: Shaheed Villafuerte MD Primary Care Physician Patient Instructions: General Instructions, Leg Edema (ED) Additional Instructions: Continue Lasix as prescribed. Follow-up with Dr. Villafuerte, your securities analyst, as well as your primary care physician. Return to the emergency department for any acute worsening of symptoms. Med/Other Pt SpecificInfo: No Change to Meds Disposition: 01 DISCHARGE HOME Condition: Stable Shameka Seymour MARZENA February 07, 2017 14:53
[2017-02-07 14:58] VITALS: O2SAT 97
[2017-02-07] MEDS ORDERED: SODIUM CHLORIDE 0.9% FLUSH 10 ML FLUSH IVF PRN (15:00)
[2017-02-07 15:15] LABS: AUTOMATED NEUTROPHIL # 5.5 TH/MM3 (1.8-7.7); BASOPHIL % 0.4 % (0.0-2.0); EOSINOPHIL # 0.4 TH/MM3 (0-0.4); EOSINOPHIL % 4.1 % (0.0-4.0); HEMATOCRIT 32.9 % (35.0-46.0); HEMO FLAGS DIFF FINAL; LYMPH % 22.5 % (9.0-44.0); LYMPHOCYTE # 1.9 TH/MM3 (1.0-4.8); MEAN CELL VOLUME 93.2 FL (80.0-100.0); MEAN CORPUSCULAR HEMOGLOBIN 30.4 PG (27.0-34.0); MEAN CORPUSCULAR HGB CONC 32.6 % (32.0-36.0); PLATELET COUNT 282 TH/MM3 (150-450); RED BLOOD COUNT 3.53 MIL/MM3 (4.00-5.30); RED CELL DISTRIBUTION WIDTH 17.6 % (11.6-17.2); WHITE BLOOD COUNT 8.6 TH/MM3 (4.0-11.0)
[2017-02-07 15:28] LABS: ALT (GPT) 14 U/L (10-53); ANION GAP 3 MEQ/L (5-15); AST (GOT) 14 U/L (15-37); BICARBONATE 33.8 MEQ/L (21.0-32.0); BLOOD UREA NITROGEN 21 MG/DL (7-18); CHLORIDE 95 MEQ/L (98-107); GLOMERULAR FILTRATION RATE 87 ML/MIN (>89); MAGNESIUM 2.3 MG/DL (1.5-2.5); SODIUM (NA) 132 MEQ/L (136-145)
[2017-02-07 15:31] LABS: APTT (PATIENT) 26.9 SEC (24.3-30.1); INTERNATIONAL NORMALIZED RATIO 0.9 RATIO; PROTHROMBIN TIME - PATIENT 10.2 SEC (9.8-11.6)
[2017-02-07 15:32] LABS: ALKALINE PHOSPHATASE 60 U/L (45-117); TOTAL BILIRUBIN ADULT 0.1 MG/DL (0.2-1.0)
[2017-02-07 15:46] LABS: CREATINE KINASE 92 U/L (26-192)
[2017-02-07 16:03] LABS: BACTERIA, URINE OCC /hpf; BLOOD, URINE TRACE (NEG); COMMENT (UR) CULT NOT INDICATED; CULTURE IF INDICATED CULT NOT INDICATED; GLUCOSE,URINE NEG (NEG); KETONE, URINE NEG (NEG); MUCUS URINE FEW /lpf (OCC); NITRITE,URINE NEG (NEG); SQUAMOUS EPITHELIAL CELL URINE 12 /hpf (0-5); URINE COLOR YELLOW (YELLW/STRAW)
--- NOTE | 2017-02-07 16:54 | PD ---
Data Data Last Documented VS Vital Signs Date Time Temp Pulse Resp B/P Pulse Ox O2 Delivery O2 Flow Rate FiO2 02/07/17 14:58 98 Room Air 02/07/17 14:45 64 22 02/07/17 13:56 98.5 130/60 Orders Electrocardiogram (02/07/17 14:50) B-Type Natriuretic Peptide (02/07/17 14:50) Ckmb (Isoenzyme) Profile (02/07/17 14:50) Complete Blood Count With Diff (02/07/17 14:50) Comprehensive Metabolic Panel (02/07/17 14:50) Magnesium (Mg) (02/07/17 14:50) Prothrombin Time / Inr (Pt) (02/07/17 14:50) Act Partial Throm Time (Ptt) (02/07/17 14:50) Troponin I (02/07/17 14:50) Chest, Single Ap (02/07/17 14:50) Ecg Monitoring (02/07/17 14:50) Bilateral Bp Monitoring (02/07/17 14:50) Iv Access Insert/Monitor (02/07/17 14:50) Oximetry (02/07/17 14:50) Oxygen Administration (02/07/17 14:50) Sodium Chloride 0.9% Flush (Ns Flush) (02/07/17 15:00) Urinalysis - C+S If Indicated (02/07/17 14:50) Ed Poc Ultrasound (02/07/17 ) Labs Laboratory Tests Test 02/07/17 15:00 White Blood Count 8.6 TH/MM3 Red Blood Count 3.53 MIL/MM3 Hemoglobin 10.7 GM/DL Hematocrit 32.9 % Mean Corpuscular Volume 93.2 FL Mean Corpuscular Hemoglobin 30.4 PG Mean Corpuscular Hemoglobin 32.6 % Concent Red Cell Distribution Width 17.6 % Platelet Count 282 TH/MM3 Mean Platelet Volume 8.6 FL Neutrophils (%) (Auto) 64.0 % Lymphocytes (%) (Auto) 22.5 % Monocytes (%) (Auto) 9.0 % Eosinophils (%) (Auto) 4.1 % Basophils (%) (Auto) 0.4 % Neutrophils # (Auto) 5.5 TH/MM3 Lymphocytes # (Auto) 1.9 TH/MM3 Monocytes # (Auto) 0.8 TH/MM3 Eosinophils # (Auto) 0.4 TH/MM3 Basophils # (Auto) 0.0 TH/MM3 CBC Comment DIFF FINAL Differential Comment Prothrombin Time 10.2 SEC Prothromb Time International 0.9 RATIO Ratio Activated Partial 26.9 SEC Thromboplast Time Urine Color YELLOW Urine Turbidity HAZY Urine pH 6.0 Urine Specific [place] 1.015 Urine Protein NEG mg/dL Urine Glucose (UA) NEG mg/dL Urine Ketones NEG mg/dL Urine Occult Blood TRACE Urine Nitrite NEG Urine Bilirubin NEG Urine Urobilinogen LESS THAN 2.0 MG/DL Urine Leukocyte Esterase NEG Urine RBC 3 /hpf Urine WBC LESS THAN 1 /hpf Urine Squamous Epithelial 12 /hpf Cells Urine Bacteria OCC /hpf Urine Mucus FEW /lpf Microscopic Urinalysis Comment CULT NOT INDICATED Sodium Level 132 MEQ/L Potassium Level 5.0 MEQ/L Chloride Level 95 MEQ/L Carbon Dioxide Level 33.8 MEQ/L Anion Gap 3 MEQ/L Blood Urea Nitrogen 21 MG/DL Creatinine 0.67 MG/DL Estimat Glomerular Filtration 87 ML/MIN Rate Random Glucose 73 MG/DL Calcium Level 9.0 MG/DL Magnesium Level 2.3 MG/DL Total Bilirubin 0.1 MG/DL Aspartate Amino Transf 14 U/L (AST/SGOT) Alanine Aminotransferase 14 U/L (ALT/SGPT) Alkaline Phosphatase 60 U/L Total Creatine Kinase 92 U/L Troponin I LESS THAN 0.02 NG/ML B-Type Natriuretic Peptide 207 PG/ML Total Protein 7.4 GM/DL Albumin 3.2 GM/DL MDM Supervised Visit with EDDIE: Yes Narrative Course The history, exam, and medical decision-making in the associated mid-level provider note were completed with my assistance. I reviewed and agree with the findings presented. I attest that I had a [id number] encounter with the patient on the same day, and personally performed and documented my assessment and findings in the medical record. *My assessment and Findings: 71-year-old woman with complaints of shortness of breath and weight gain. Recent admission for pericardial effusion felt to be related to pericarditis. She is worried this may been recurring. Recent admission for pneumonia. She been taking her Lasix regularly. Clinically no evidence of volume overload. She looks overall well. Bedside ultrasound shows no recurrent pericardial effusion. Recommend outpatient follow-up with her primary. Procedures Procedure Narrative Transthoracic point of care ultrasound: Focus transthoracic ultrasound was performed by me at the bedside to evaluate for evidence of pericardial effusion. No pericardial effusion was present. Diagnosis Primary Impression: Edema Qualified Code: R60.9 - Edema, unspecified type Referrals: Shaheed Villafuerte MD Primary Care Physician Patient Instructions: General Instructions, Leg Edema (ED) Departure Forms: Tests/Procedures Additional Instruction: Continue Lasix as prescribed. Follow-up with Dr. Villafuerte, your flame brazing machine operator, as well as your primary care physician. Return to the emergency department for any acute worsening of symptoms. Disposition: 01 DISCHARGE HOME Condition: Stable Jackson Winchester MD February 07, 2017 16:53
[2017-02-07 17:00] VITALS: BP 135/67; PULSE 75; RESP 20; O2SAT 97
--- NOTE | 2017-02-07 18:15 | RADRPT ---
EXAM DATE/TIME: 02/07/2017 15:05 [facility] COMPARISON: CHEST SINGLE AP, December 13, 2016, 8:52. INDICATIONS : Chest pressure, short of breath, weight gain. MEDICAL HISTORY : Congestive heart failure. SURGICAL HISTORY : pericardial window, back stimulator ENCOUNTER: Initial ACUITY: 1 day PAIN SCORE: 7/10 LOCATION: Bilateral chest FINDINGS: The heart is enlarged. The lungs demonstrate chronic appearing interstitial changes. There is a small er area of atelectasis at the right lung base. The basilar effusions and large areas of consolidation which were seen on previous have resolved. The visualized bony structures are intact. Note is made of a spinal stimulator. CONCLUSION: 1. Basilar atelectasis on the right and chronic interstitial changes. Exam is significantly improved compared to prior dated 02/07/17. Leobardo Agrawal MD on February 07, 2017 at 18:12 Board Certified Radiologist. This report was verified electronically.
--- NOTE | 2017-02-08 14:40 | EKG ---
Date Performed: 02/07/2017 Time Performed: 15:10:56 PTAGE: 71 years EKG: Marked baseline artifact precludes accurate assessment. Appears to be Sinus rhythm with poor R wave progression Repeat tracing and clinical correlation is recommended ABNORMAL ECG PREVIOUS TRACING : 12/10/2016 15.44 DOCTOR: Lorne Allen Interpretating Date/Time 02/08/2017 14:39:28
== END 2017-02-07 17:05 | disposition home or self-care (01) ==
LOC: NEPC 13:52
DX: R60.9 Edema, unspecified (principal); R63.5 Abnormal weight gain; D64.9 Anemia, unspecified; R94.31 Abnormal electrocardiogram [ECG] [EKG]
CPT/HCPCS: 71010; 80053; 81001; 82550; 83735; 83880; 84484; 85025; 85610; 85730; 93005

== ENCOUNTER 2018-04-27 13:10 | Inpatient (IN) ==
--- NOTE | 2018-04-27 14:27 | ED ---
HPI General Chief Complaint: Seizure Stated Complaint: possible seizures Time Seen by Provider: 04/27/18 13:54 History of Present Illness HPI Narrative: This patient is brought in by her . She has had altered mental status for the last 3 days. Does sort of wax and wane. There is been no head injury. Patient has chronic back pain and is on a intrathecal morphine pump. Pump was recently refilled but no change in dosage. She is also on Klonopin and trazodone and lithium and Depakote. No suspicion of overdose from the . No fever. No history of alcohol or drug abuse. Reportedly that recently the ammonia was found to be very elevated lithium is being weaned off because of that. But he denies history of liver disease. Related Data Home Medications Medication Instructions Recorded Confirmed acyclovir 400 mg PO DAILY 04/27/18 04/27/18 aspirin 81 mg PO DAILY 04/27/18 04/27/18 budesonide-formoterol [Symbicort] 2 puff INHALATION HS 04/27/18 04/27/18 clonazepam [Klonopin] 0.5 mg PO TID 04/27/18 04/27/18 cyclosporine [Restasis] 1 drp EACH EYE Q12H 04/27/18 04/27/18 diltiazem HCl 180 mg PO DAILY 04/27/18 04/27/18 divalproex [Depakote] 500 mg PO HS 04/27/18 04/27/18 docusate sodium [Colace] 100 mg PO BID 04/27/18 04/27/18 estradiol 2 mg PO DAILY 04/27/18 04/27/18 gabapentin 300 mg PO BID 04/27/18 04/27/18 ipratropium bromide [Atrovent HFA] 1 puff INHALATION Q6H PRN 04/27/18 04/27/18 lactobacillus combination no.4 1 cap PO DAILY 04/27/18 04/27/18 [Probiotic] levothyroxine 75 mcg PO DAILY 04/27/18 04/27/18 loratadine [Claritin] 10 mg PO DAILY PRN 04/27/18 04/27/18 montelukast [Singulair] 10 mg PO DAILY 04/27/18 04/27/18 multivitamin 1 tab PO DAILY 04/27/18 04/27/18 nadolol 20 mg PO DAILY 04/27/18 04/27/18 naloxegol [Movantik] 25 mg PO HS 04/27/18 04/27/18 polyethylene glycol 3350 [Miralax] 17 g PO DAILY PRN 04/27/18 04/27/18 potassium chloride 20 meq PO DAILY 04/27/18 04/27/18 psyllium seed (sugar) [Metamucil 1 tsp PO BID 04/27/18 04/27/18 (sugar)] quetiapine [Seroquel] 100 mg PO HS 04/27/18 04/27/18 trazodone 200 mg PO HS 04/27/18 04/27/18 venlafaxine [Effexor XR] 150 mg PO DAILY 04/27/18 04/27/18 vit C,C-Rz-qreuo-lutein-zeaxan 1 tab PO BID 04/27/18 04/27/18 [PreserVision AREDS 2] Allergies Allergy/AdvReac Type Severity Reaction Status Date / Time penicillin G Allergy Severe hives Verified 04/27/18 14:10 Sulfa (Sulfonamide Allergy Severe hives Verified 04/27/18 14:10 Antibiotics) latex Allergy Intermediate rash Verified 04/27/18 14:10 piroxicam Allergy Unknown Hives Verified 04/27/18 14:10 cyclobenzaprine AdvReac Intermediate PAU Verified 04/27/18 14:10 hydroxyzine AdvReac Unknown Hives Verified 04/27/18 14:10 Review of Systems Except as stated in HPI: all other systems reviewed are negative PMFSH Medical History Medical History Asthma (Acute) Back pain (Acute) Spinal cord stimulator status (Acute) Surgical History Surgical History Hx of tonsillectomy (Acute) Social History Social History Substance History: No History of Abuse Smoking Status: Never smoker How Often Do You Have a Drink Containing Alcohol: Never Recent Travel in [place] within the Last 8 Weeks: No Recent Out of Country Travel within the Last 8 Weeks: No Immunization History Tetanus Immunization: Unsure Hx Influenza Vaccine This Season: Yes Exam Narrative Exam Narrative: GENERAL: Well-nourished, well-developed patient in no apparent distress. SKIN: Focused skin assessment reveals no rash and nodules. Skin is Warm and dry. HEAD: Atraumatic. Normocephalic. EYES: Pupils equal and round. No scleral icterus. No injection or drainage. ENT: No nasal bleeding or discharge. Mucous membranes pink and moist. NECK: Trachea midline. No JVD. No meningeal signs CARDIOVASCULAR: Regular rate and rhythm. No murmur appreciated. RESPIRATORY: No accessory muscle use. Clear to auscultation. Breath sounds equal bilaterally. GASTROINTESTINAL: Abdomen soft, non-tender, nondistended. Hepatic and splenic margins not palpable. MUSCULOSKELETAL: No obvious deformities. No clubbing. No cyanosis. No edema. NEUROLOGICAL: Awake but lethargic and confused. No obvious cranial nerve deficits. Motor exam and sensory exam are difficult to obtain given her limited participation. PSYCHIATRIC: Appropriate mood and affect; insight and judgment poor . Course Initial Documented Vital Signs Temperature 98.5 F 04/27/18 13:14 Pulse Rate 74 04/27/18 13:14 Respiratory Rate 16 04/27/18 13:14 Blood Pressure 99/58 L 04/27/18 13:14 Pulse Oximetry 95 04/27/18 13:14 Last Documented Vital Signs Temperature 98.5 F 04/27/18 13:14 Pulse Rate 93 H 04/27/18 15:23 Respiratory Rate 28 H 04/27/18 15:23 Blood Pressure 122/78 04/27/18 15:23 Pulse Oximetry 99 04/27/18 15:23 Critical Care Time Critical Care Time: Yes Total Critical Care Time: 78 Attestation: Aggregate critical care time was 78 minutes. Time to perform other separately billable procedures was not included in the critical care time. My time did not include minutes spent treating any other patients simultaneously or on activities that did not directly contribute to the patient's treatment. The services I provided to this patient were to treat and/or prevent clinically significant deterioration that could result in: Toxic encephalopathy, overdose, loss of airway or respiratory drive I provided critical care services requiring my management, as noted below: Chart data review, documentation time, medication orders and management, vital sign assessments/reviewing monitor data, ordering and reviewing lab tests, ordering and interpreting/reviewing x-rays and diagnostic studies, care of the patient and discussion of the patient with the admitting physicians. Medical Decision Making MDM Narrative Medical decision making narrative: 2 IVs placed and labs sent. CT of brain is negative I gave her 2L normal saline IV bolus Initial blood pressure 88 systolic Patient hypotensive and confused, critically ill to start here Unfortunately turns out this patient has history of CHF. She is on Lasix and potassium therapy. The initial medicine list I looked at did not include diuretics. After 2 L of saline her blood pressure is now normal in the 120 systolic but she has developed pulmonary edema. She became short of breath and developed crackles. I have blocked her fluid and sat her up and placed her on oxygen mask. [place] catheter was placed and I gave her 40 mg IV Lasix. On recheck she is clinically doing better. We have moved her to a nasal cannula. She is in upper 90s on a nasal cannula. I spoke with a pain management physician coverage. She thought it reasonable to decrease the morphine dosage by 50% so she texted the [employer] rep to come in and they did. Once they got here they realized it was not a [employer] pump and they left. So we have not change the dose at this point. They do not have a card and have no idea what company put the pump in her any details about it. The patient is too confused to contribute to this discussion. Labs are reviewed. CBC normal. Metabolic studies show some hyperkalemia. Her potassium will obviously be held. [place] level pending but Depakote is 38 and alcohol negative. Ammonia is normal. This may be multifactorial. She is on many sedating medications. These will be held. I reviewed with the hospitalist who will admit Differential Diagnosis Differential Diagnosis: Overmedication, overdose, hepatic encephalopathy Medical Records Medical records reviewed: Yes I reviewed the patient's medical records. She has been seen here for back pain before, no recent visits Lab Data Result diagrams: 04/27/18 13:30 04/27/18 13:30 Lab Results 04/27/18 04/27/18 04/27/18 Range/Units 13:30 13:30 14:30 WBC 7.4 (4.0-11.0) th/mm3 RBC 3.42 L (4.00-5.30) mil/mm3 Hgb 12.0 (11.6-15.3) gm/dL Hct 34.8 L (35.0-46.0) % MCV 101.8 H (80.0-100.0) fL MCH 35.2 H (27.0-34.0) pg MCHC 34.6 (32.0-36.0) % RDW 13.2 (11.6-17.2) % Plt Count 241 (150-450) th/mm3 MPV 9.7 (7.0-11.0) fL Neut % (Auto) 75.5 H (16.0-70.0) % Lymph % (Auto) 16.3 (9.0-44.0) % [place] % (Auto) 5.4 (0.0-8.0) % Eos % (Auto) 2.1 (0.0-4.0) % Baso % (Auto) 0.7 (0.0-2.0) % Neut # (Auto) 5.6 (1.8-7.7) th/mm3 Lymph # (Auto) 1.2 (1.0-4.8) th/mm3 [place] # (Auto) 0.4 (0.0-0.9) th/mm3 Eos # (Auto) 0.2 (0.0-0.4) th/mm3 Baso # (Auto) 0.1 (0.0-0.2) th/mm3 WBC Differential . Differential Comment Auto diff final Sodium 137 (136-145) meq/L Potassium 5.7 H (3.5-5.1) meq/L Chloride 103 (98-107) meq/L Carbon Dioxide 30.2 (21.0-32.0) meq/L Anion Gap 4 L (5-15) meq/L BUN 18 (7-18) mg/dL Creatinine 0.90 (0.50-1.00) mg/dL Estimated GFR 62 L (>89) mL/min POC Glucose (68-110) mg/dl Fasting Glucose 78 (74-99) mg/dL Calcium 9.0 (8.5-10.1) mg/dL Total Bilirubin 0.3 (0.2-1.0) mg/dL AST 22 (15-37) U/L ALT 13 (10-53) U/L Alkaline Phosphatase 61 (45-117) U/L Ammonia 27 (11-32) mcmol/L Total Protein 6.9 (6.4-8.2) g/dL Albumin 3.1 L (3.4-5.0) g/dL TSH 4.050 H (0.358-3.740) uIU/mL Urine Color (Yellw/Straw) Urine Clarity (Clear) Urine pH (5.0-8.5) Ur Specific [place] (1.002-1.035) Urine Protein (Neg-Trace) mg/dL Urine Glucose (UA) (Negative) mg/dL Urine Ketones (Negative) mg/dL Urine Occult Blood (Negative) Urine Nitrate (Negative) Urine Bilirubin (Negative) Urine Urobilinogen (Less than 2) mg/dL Ur Leukocyte Esterase (Negative) Urine RBC (0-3) /hpf Urine WBC (0-5) /hpf Ur Squamous Epith Cells (0-5) /hpf Hyaline Casts (0-3) /lpf Urine Mucus (Occasional) /lpf Micro UA Comment Urine Culture Comments Urine Opiates Screen (Neg) Ur Barbiturates Screen (Neg) Valproic Acid 38 L (50-100) mcg/mL Ur Amphetamines Screen (Neg) U Benzodiazepines Scrn (Neg) Urine Cocaine Screen (Neg) U Cannabinoids Screen (Neg) Serum Alcohol Less than 3 (0-5) mg/dL 04/27/18 04/27/18 04/27/18 Range/Units 14:44 15:00 15:00 WBC (4.0-11.0) th/mm3 RBC (4.00-5.30) mil/mm3 Hgb (11.6-15.3) gm/dL Hct (35.0-46.0) % MCV (80.0-100.0) fL MCH (27.0-34.0) pg MCHC (32.0-36.0) % RDW (11.6-17.2) % Plt Count (150-450) th/mm3 MPV (7.0-11.0) fL Neut % (Auto) (16.0-70.0) % Lymph % (Auto) (9.0-44.0) % [place] % (Auto) (0.0-8.0) % Eos % (Auto) (0.0-4.0) % Baso % (Auto) (0.0-2.0) % Neut # (Auto) (1.8-7.7) th/mm3 Lymph # (Auto) (1.0-4.8) th/mm3 [place] # (Auto) (0.0-0.9) th/mm3 Eos # (Auto) (0.0-0.4) th/mm3 Baso # (Auto) (0.0-0.2) th/mm3 WBC Differential Differential Comment Sodium (136-145) meq/L Potassium (3.5-5.1) meq/L Chloride (98-107) meq/L Carbon Dioxide (21.0-32.0) meq/L Anion Gap (5-15) meq/L BUN (7-18) mg/dL Creatinine (0.50-1.00) mg/dL Estimated GFR (>89) mL/min POC Glucose 97 (68-110) mg/dl Fasting Glucose (74-99) mg/dL Calcium (8.5-10.1) mg/dL Total Bilirubin (0.2-1.0) mg/dL AST (15-37) U/L ALT (10-53) U/L Alkaline Phosphatase (45-117) U/L Ammonia (11-32) mcmol/L Total Protein (6.4-8.2) g/dL Albumin (3.4-5.0) g/dL TSH (0.358-3.740) uIU/mL Urine Color Yellow (Yellw/Straw) Urine Clarity Hazy H (Clear) Urine pH 7.0 (5.0-8.5) Ur Specific [place] 1.013 (1.002-1.035) Urine Protein Negative (Neg-Trace) mg/dL Urine Glucose (UA) Negative (Negative) mg/dL Urine Ketones Negative (Negative) mg/dL Urine Occult Blood Negative (Negative) Urine Nitrate Negative (Negative) Urine Bilirubin Negative (Negative) Urine Urobilinogen Less than 2 (Less than 2) mg/dL Ur Leukocyte Esterase Negative (Negative) Urine RBC 2 (0-3) /hpf Urine WBC Less than 1 (0-5) /hpf Ur Squamous Epith Cells 1 (0-5) /hpf Hyaline Casts 15 (0-3) /lpf Urine Mucus Few H (Occasional) /lpf Micro UA Comment Cath-culture not ind Urine Culture Comments Cath-cult not ind Urine Opiates Screen Pos H (Neg) Ur Barbiturates Screen Neg (Neg) Valproic Acid (50-100) mcg/mL Ur Amphetamines Screen Neg (Neg) U Benzodiazepines Scrn Pos H (Neg) Urine Cocaine Screen Neg (Neg) U Cannabinoids Screen Neg (Neg) Serum Alcohol (0-5) mg/dL Imaging Data Radiologist's impression: Head CT 04/27/18 14:11 CONCLUSION: 1. No acute intracranial abnormalities. . Chest X-Ray 04/27/18 15:20 CONCLUSION: Mild congestive heart failure. Trace pleural fluid. Discharge Plan Discharge Disposition Patient Disposition: 30 Still Patient Discharge Details Diagnosis: Altered mental status, Pulmonary edema Physicians Team ED Provider: Thien Jason Primary Care Provider: UNKNOWN, Rxs /Orders / Referrals /Forms Prescriptions: No Action multivitamin Tablet 1 tab PO DAILY RF: 0 diltiazem HCl 180 mg Capsule,Extended Release 24 Hr 180 mg PO DAILY RF: 0 divalproex [Depakote] 250 mg Tablet,Delayed Release (Dr/Ec) 500 mg PO HS RF: 0 polyethylene glycol 3350 [Miralax] 17 gram Powder In Packet 17 g PO DAILY PRN (Reason: Constipation) RF: 0 clonazepam [Klonopin] 0.5 mg Tablet 0.5 mg PO TID RF: 0 venlafaxine [Effexor XR] 150 mg Capsule,Extended Release 24hr 150 mg PO DAILY RF: 0 acyclovir 400 mg Tablet 400 mg PO DAILY RF: 0 aspirin 81 mg Tablet,Delayed Release (Dr/Ec) 81 mg PO DAILY RF: 0 quetiapine [Seroquel] 100 mg Tablet 100 mg PO HS RF: 0 levothyroxine 75 mcg Tablet 75 mcg PO DAILY RF: 0 nadolol 20 mg Tablet 20 mg PO DAILY RF: 0 estradiol 1 mg Tablet 2 mg PO DAILY RF: 0 trazodone 100 mg Tablet 200 mg PO HS RF: 0 docusate sodium [Colace] 100 mg Capsule 100 mg PO BID RF: 0 gabapentin 300 mg Capsule 300 mg PO BID RF: 0 montelukast [Singulair] 10 mg Tablet 10 mg PO DAILY RF: 0 loratadine [Claritin] 10 mg Tablet 10 mg PO DAILY PRN (Reason: Allergy Symptoms) RF: 0 cyclosporine [Restasis] 0.05 % [place] 1 drp EACH EYE Q12H RF: 0 psyllium seed (sugar) [Metamucil (sugar)] Powder 1 tsp PO BID RF: 0 ipratropium bromide [Atrovent HFA] 17 mcg/actuation Hfa Aerosol Inhaler 1 puff INHALATION Q6H PRN (Reason: Shortness Of Breath) RF: 0 budesonide-formoterol [Symbicort] 160-4.5 mcg/actuation Hfa Aerosol Inhaler 2 puff INHALATION HS RF: 0 lactobacillus combination no.4 [Probiotic] 3 billion cell Capsule 1 cap PO DAILY RF: 0 vit C,B-Dd-rycve-lutein-zeaxan [PreserVision AREDS 2] 859-395-66-1 mg-unit-mg- mg Capsule 1 tab PO BID RF: 0 potassium chloride 20 mEq Tablet Extended Release 20 meq PO DAILY RF: 0 naloxegol [Movantik] 25 mg Tablet 25 mg PO HS RF: 0 Discharge Interventions Interventions: Vital Signs Last Done: 04/27/18 15:23 Status ED Status: With Doctor
[2018-04-27] MEDS ORDERED: Sod Chloride 0.9% Inj 1,000 ML IV.SIG ONE ×2 (14:28→14:39)
[2018-04-27 14:54] LABS: Baso # (Auto) 0.1 th/mm3 (0.0-0.2); Baso % (Auto) 0.7 % (0.0-2.0); Eos # (Auto) 0.2 th/mm3 (0.0-0.4); Eos % (Auto) 2.1 % (0.0-4.0); Hematocrit 34.8 % (35.0-46.0); Lymph # (Auto) 1.2 th/mm3 (1.0-4.8); Lymph % (Auto) 16.3 % (9.0-44.0); Mean Corpuscular HGB Conc 34.6 % (32.0-36.0); Mean Corpuscular Hemoglobin 35.2 pg (27.0-34.0); Mean Corpuscular Volume 101.8 fL (80.0-100.0); Mean Platelet Volume 9.7 fL (7.0-11.0); Mono # (Auto) 0.4 th/mm3 (0.0-0.9); Mono % (Auto) 5.4 % (0.0-8.0); Neut # (Auto) 5.6 th/mm3 (1.8-7.7); Neut % (Auto) 75.5 % (16.0-70.0); Platelet Count 241 th/mm3 (150-450); Red Blood Count 3.42 mil/mm3 (4.00-5.30); Red Cell Distribution Width 13.2 % (11.6-17.2); White Blood Count 7.4 th/mm3 (4.0-11.0)
[2018-04-27 15:12] LABS: Alanine Aminotransferase 13 U/L (10-53); Albumin 3.1 g/dL (3.4-5.0); Anion Gap 4 meq/L (5-15); Aspartate Aminotransferase 22 U/L (15-37); Blood Urea Nitrogen 18 mg/dL (7-18); Carbon Dioxide 30.2 meq/L (21.0-32.0); Chloride 103 meq/L (98-107); Glomerular Filtration Rate 62 mL/min (>89); Potassium 5.7 meq/L (3.5-5.1); Sodium 137 meq/L (136-145)
[2018-04-27 15:15] LABS: Bilirubin,Urine Negative (Negative); Clarity,Urine Hazy (Clear); Color,Urine Yellow (Yellw/Straw); Glucose,Urine (UA) Negative (Negative); Hyaline Casts,Urine 15 /lpf (0-3); Leukocyte Esterase,Urine Negative (Negative); Mucus,Urine Few /lpf (Occasional); Nitrite,Urine Negative (Negative); Specific Gravity,Urine 1.013 (1.002-1.035); Squamous Epithelial Cell,Urine 1 /hpf (0-5)
[2018-04-27 15:17] LABS: Amphetamine Screen,Urine Neg (Neg); Barbiturate Screen,Urine Neg (Neg); Cannabinoid Screen,Urine Neg (Neg); Cocaine Screen,Urine Neg (Neg)
[2018-04-27 15:17] LABS: Alkaline Phosphatase 61 U/L (45-117); Total Protein 6.9 g/dL (6.4-8.2); Valproic Acid 38 mcg/mL (50-100)
[2018-04-27 15:20] LABS: Opiate Screen,Urine Pos (Neg)
--- NOTE | 2018-04-27 15:22 | CT ---
EXAM DATE: 04/27/2018 3:19 PM EDT AGE/SEX: 72 years / Female INDICATIONS: Altered mental status. CLINICAL DATA: This is the patient's initial encounter. Patient reports that signs and symptoms have been present for 1 day and indicates a pain score of 0/10. MEDICAL/SURGICAL HISTORY: Asthma. Tonsillectomy. RADIATION DOSE: 38.04 CTDI (mGy) COMPARISON: [facility] [place], CT BRAIN W/O CONTRAST, 12/10/2016. . TECHNIQUE: CT of the head without contrast. Using automated exposure control and adjustment of the mA and/or kV according to patient size, radiation dose was kept as low as reasonably achievable to ob tain optimal diagnostic quality images. DICOM format image data is available electronically for revi ew and comparison. FINDINGS: Cerebrum: The ventricles are normal for age. No evidence of midline shift, mass lesion, hemorrhage or acute infarction. No extraaxial fluid collections are seen. Posterior Fossa: The cerebellum and brainstem are intact. The 4th ventricle is midline. The cerebe llopontine angle is unremarkable. Extracranial: The visualized portion of the orbits is intact. Skull: The calvaria is intact. No evidence of skull fracture. CONCLUSION: 1. No acute intracranial abnormalities. . Electronically signed by: German Joseph MD 04/27/2018 3:21 PM EDT
--- NOTE | 2018-04-27 15:43 | XR ---
EXAM DATE: 04/27/2018 3:36 PM EDT AGE/SEX: 72 years / Female INDICATIONS: Short of breath. CLINICAL DATA: This is the patient's initial encounter. Patient reports that signs and symptoms have been present for 1 day and indicates a pain score of Nonresponsive. MEDICAL/SURGICAL HISTORY: Congestive heart failure. . pericardial window, back stimulator COMPARISON: [facility], CHEST SINGLE AP, 02/07/2017. . FINDINGS: Heart size enlarged. Diffuse mild edema pattern with basilar airspace disease. Trace pleural fluid. N o pneumothorax. Stimulator wire overlies lower thoracic spine. CONCLUSION: Mild congestive heart failure. Trace pleural fluid. Electronically signed by: German Joseph MD 04/27/2018 3:42 PM EDT
[2018-04-27] MEDS ORDERED: Bisacodyl 10 MG Supp RECTAL PRN (16:35)
--- NOTE | 2018-04-27 17:01 | P.HP ---
History of Present Illness Service: [facility] Primary Care Physician: UNKNOWN History of Present Illness: This is a 72 yo female patient with a medical history significant for bipolar disorder, COPD, heart failure, and chronic back pain on an intrathecal morphine pump. The patient and presented to ER with concern for AMS x 3 days. Patient is only able to provide a limited amount of history. Patient states that her pump had been being adjusted as an outpatient. Per ER physician who spoke with the , there is no concern or suspicion of overdose. There is no history of alcohol or drug abuse. Per ER physician ammonia was found to be elevated as an outpatient so the lithium was being weaned off. Patient was hypotensive on admission and was given several boluses of IV fluids. She later developed some pulmonary edema with some shortness of breath. She received 40 mg of IV Lasix. She was hep-locked. Patient currently reports that she feels well except for having back pain. She denies shortness of breath or chest pain. Her is not here currently, she reports that he knows names of all her medications. Per nursing report on arrival to the ER patient was noted to exhibit some tremors. Concern was for seizure. Patient is on seizure precautions. Per review of EMR, patient presented similarly in November with altered mental status and hypotension. Patient was also found to be bradycardic at that time likely to due to her high doses of antiarrhythmics. - Diagnosis (1) Altered mental status (2) Pulmonary edema (3) Atrial fibrillation (4) Chronic back pain (5) COPD (chronic obstructive pulmonary disease) (6) Bipolar disorder (7) Hypotension Inpatient Certification: I certify that the inpatient services were ordered in accordance with Medicare regulations governing the order. This includes certification that hospital inpatient services are reasonable and necessary and in the case of services not specified as inpatient-only under 42 CFR 419.22(n), that they are appropriately provided as inpatient services in accordance to with the 2-midnight benchmark under 43 CFR 412.3(e) Estimated Total Length of Stay (Days): 3 Plans for Post Hospital Care: Not yet determined Review of Systems unobtainable due to mental status Ears, Nose, Mouth, and Throat: Reports abnormal hearing Cardiovascular: Reports shortness of breath, Denies chest pain Respiratory: Reports shortness of breath, Denies chest congestion Gastrointestinal: Denies abdominal pain Musculoskeletal: Reports abnormal walking, Reports back pain Neurologic: Reports behavioral changes, Reports confusion, Reports seizure-like activity PMFSH - History History Provided By: Patient - Medical History Medical History: Medical History (Last Updated 04/27/18 @ 17:48 by Katlyn Rey MD) Asthma Atrial fibrillation Atrial fibrillation Back pain COPD (chronic obstructive pulmonary disease) Spinal cord stimulator status - Surgical History Surgical History: Surgical History (Last Updated 04/27/18 @ 13:22 by Ginny Santo) Hx of tonsillectomy - Tobacco History Smoking Status: Never smoker - Alcohol History How Often Do You Have a Drink Containing Alcohol: Never - Substance Use History Substance History: No History of Abuse - Travel History Recent Travel in the [place] Within the Last 8 Weeks: No Recent Travel Out of the Country Within the Last 8 Weeks: No - Immunization History Tetanus Immunization: Unsure Hx Influenza Vaccine This Season: Yes Medications and Allergies Active Medications: Active Medications Bisacodyl (Dulcolax Supp) 10 mg RECTAL DAILY PRN PRN Reason: SEVERE CONSITIPATION Sennosides (Senokot) 17.2 mg PO Q12H PRN PRN Reason: Moderate Constipation Sodium Chloride (Ns Flush) 2 ml IV.FLUSH PRN PRN PRN Reason: FLUSH AFTER USING IV ACCESS Last Admin: 04/27/18 15:43 Dose: 2 ml Allergies Allergy/AdvReac Type Severity Reaction Status Date / Time penicillin G Allergy Severe hives Verified 04/27/18 14:10 Sulfa (Sulfonamide Allergy Severe hives Verified 04/27/18 14:10 Antibiotics) latex Allergy Intermediate rash Verified 04/27/18 14:10 piroxicam Allergy Unknown Hives Verified 04/27/18 14:10 cyclobenzaprine AdvReac Intermediate PAU Verified 04/27/18 14:10 hydroxyzine AdvReac Unknown Hives Verified 04/27/18 14:10 Home Medications Medication Instructions Recorded Confirmed Type acyclovir 400 mg PO DAILY 04/27/18 04/27/18 History aspirin 81 mg PO DAILY 04/27/18 04/27/18 History budesonide-formoterol [Symbicort] 2 puff INHALATION HS 04/27/18 04/27/18 History clonazepam [Klonopin] 0.5 mg PO TID 04/27/18 04/27/18 History cyclosporine [Restasis] 1 drp EACH EYE Q12H 04/27/18 04/27/18 History diltiazem HCl 180 mg PO DAILY 04/27/18 04/27/18 History divalproex [Depakote] 500 mg PO HS 04/27/18 04/27/18 History docusate sodium [Colace] 100 mg PO BID 04/27/18 04/27/18 History estradiol 2 mg PO DAILY 04/27/18 04/27/18 History gabapentin 300 mg PO BID 04/27/18 04/27/18 History ipratropium bromide [Atrovent HFA] 1 puff INHALATION Q6H PRN 04/27/18 04/27/18 History lactobacillus combination no.4 1 cap PO DAILY 04/27/18 04/27/18 History [Probiotic] levothyroxine 75 mcg PO DAILY 04/27/18 04/27/18 History loratadine [Claritin] 10 mg PO DAILY PRN 04/27/18 04/27/18 History montelukast [Singulair] 10 mg PO DAILY 04/27/18 04/27/18 History multivitamin 1 tab PO DAILY 04/27/18 04/27/18 History nadolol 20 mg PO DAILY 04/27/18 04/27/18 History naloxegol [Movantik] 25 mg PO HS 04/27/18 04/27/18 History polyethylene glycol 3350 [Miralax] 17 g PO DAILY PRN 04/27/18 04/27/18 History potassium chloride 20 meq PO DAILY 04/27/18 04/27/18 History psyllium seed (sugar) [Metamucil 1 tsp PO BID 04/27/18 04/27/18 History (sugar)] quetiapine [Seroquel] 100 mg PO HS 04/27/18 04/27/18 History trazodone 200 mg PO HS 04/27/18 04/27/18 History venlafaxine [Effexor XR] 150 mg PO DAILY 04/27/18 04/27/18 History vit C,E-Vo-uwtew-lutein-zeaxan 1 tab PO BID 04/27/18 04/27/18 History [PreserVision AREDS 2] Exam Vital signs: Vital Signs 04/27/18 13:14 04/27/18 14:12 04/27/18 14:13 Temperature 98.5 F Pulse Rate 74 77 Respiratory Rate 16 18 Blood Pressure 99/58 L 94/60 L Pulse Oximetry 95 97 99 04/27/18 14:45 04/27/18 15:23 04/27/18 16:31 Temperature Pulse Rate 84 93 H 78 Respiratory Rate 18 28 H 18 Blood Pressure 99/65 L 122/78 90/58 L Pulse Oximetry 96 99 97 Intake & Output 04/26/18 04/27/18 04/27/18 18:59 06:59 18:59 Intake Total 1999 Output Total 300 / 300 Balance 1700 / 1700 Weight 63.049 kg Intake: IV 1999 NS Inj 1,000 ML @ Wide Open IV. 1999 SIG BOLUS ONE Rx#:[id number] Output: Urine Amount (Catheter) 300 / 300 Straight 300 / 300 - Constitutional average body habitus, somnolent - Routine HEENT Exam Head: Present: normocephalic, atraumatic Eye: Present: EOMI ENT: Present: mucous membranes dry. Absent: septal deviation - Routine Neck Exam Present: supple, full ROM - Routine Chest/Breast/Axilla Exam Chest wall: Absent: tenderness - Routine Respiratory Exam Present: crackles. Absent: accessory muscle use, decreased breath sounds, wheezes - Routine Cardiovascular Exam Present: RRR, S1, S2. Absent: murmur - Routine Abdominal Exam Present: soft. Absent: tenderness - Routine Extremities Exam Absent: clubbing, edema, Chelsy's sign, tenderness - Routine Skin Exam Present: intact, dry - Routine Neurological Exam Present: alert, oriented X3, moving all extremities, vision grossly intact RESPONDS TO QUESTIONS ALTHOUGH SLUGGISH Results - Labs CBC & Chem 7: 04/27/18 13:30 04/27/18 13:30 Labs: Laboratory Results - last 24 hr 04/27/18 04/27/18 04/27/18 13:30 13:30 14:30 WBC 7.4 RBC 3.42 L Hgb 12.0 Hct 34.8 L MCV 101.8 H MCH 35.2 H MCHC 34.6 RDW 13.2 Plt Count 241 MPV 9.7 Neut % (Auto) 75.5 H Lymph % (Auto) 16.3 [place] % (Auto) 5.4 Eos % (Auto) 2.1 Baso % (Auto) 0.7 Neut # (Auto) 5.6 Lymph # (Auto) 1.2 [place] # (Auto) 0.4 Eos # (Auto) 0.2 Baso # (Auto) 0.1 WBC Differential . Differential Comment Auto diff final Sodium 137 Potassium 5.7 H Chloride 103 Carbon Dioxide 30.2 Anion Gap 4 L BUN 18 Creatinine 0.90 Estimated GFR 62 L POC Glucose Fasting Glucose 78 Calcium 9.0 Total Bilirubin 0.3 AST 22 ALT 13 Alkaline Phosphatase 61 Ammonia 27 Total Protein 6.9 Albumin 3.1 L TSH 4.050 H Urine Color Urine Clarity Urine pH Ur Specific [place] Urine Protein Urine Glucose (UA) Urine Ketones Urine Occult Blood Urine Nitrate Urine Bilirubin Urine Urobilinogen Ur Leukocyte Esterase Urine RBC Urine WBC Ur Squamous Epith Cells Hyaline Casts Urine Mucus Micro UA Comment Urine Culture Comments Urine Opiates Screen Ur Barbiturates Screen Valproic Acid 38 L Ur Amphetamines Screen U Benzodiazepines Scrn Urine Cocaine Screen U Cannabinoids Screen Serum Alcohol Less than 3 04/27/18 04/27/18 04/27/18 14:44 15:00 15:00 WBC RBC Hgb Hct MCV MCH MCHC RDW Plt Count MPV Neut % (Auto) Lymph % (Auto) [place] % (Auto) Eos % (Auto) Baso % (Auto) Neut # (Auto) Lymph # (Auto) [place] # (Auto) Eos # (Auto) Baso # (Auto) WBC Differential Differential Comment Sodium Potassium Chloride Carbon Dioxide Anion Gap BUN Creatinine Estimated GFR POC Glucose 97 Fasting Glucose Calcium Total Bilirubin AST ALT Alkaline Phosphatase Ammonia Total Protein Albumin TSH Urine Color Yellow Urine Clarity Hazy H Urine pH 7.0 Ur Specific [place] 1.013 Urine Protein Negative Urine Glucose (UA) Negative Urine Ketones Negative Urine Occult Blood Negative Urine Nitrate Negative Urine Bilirubin Negative Urine Urobilinogen Less than 2 Ur Leukocyte Esterase Negative Urine RBC 2 Urine WBC Less than 1 Ur Squamous Epith Cells 1 Hyaline Casts 15 Urine Mucus Few H Micro UA Comment Cath-culture not ind Urine Culture Comments Cath-cult not ind Urine Opiates Screen Pos H Ur Barbiturates Screen Neg Valproic Acid Ur Amphetamines Screen Neg U Benzodiazepines Scrn Pos H Urine Cocaine Screen Neg U Cannabinoids Screen Neg Serum Alcohol - Imaging Impressions Head CT 04/27/18 14:11 CONCLUSION: 1. No acute intracranial abnormalities. . Chest X-Ray 04/27/18 15:20 CONCLUSION: Mild congestive heart failure. Trace pleural fluid. Caprini VTE Risk Assessment Caprini VTE Risk Assessment: No/Low Risk (score <= 1) Caprini Risk Assessment Model: Point Value = 1 Point Value = 2 Point Value = 3 Point Value = 5 Age 41-60 Minor surgery BMI > 25 kg/m2 Swollen legs Varicose veins or History of unexplained or recurrent spontaneous Oral contraceptives or hormone replacement Sepsis (< 1 month) Serious lung disease, including pneumonia (< 1 month) Abnormal pulmonary function Acute myocardial infarction Congestive heart failure (< 1 month) History of inflammatory bowel disease Medical patient at bed rest Age 61-74 Arthroscopic surgery Major open surgery (> 45 min) Laparoscopic surgery (> 45 min) Malignancy Confined to bed (> 72 hours) Immobilizing plaster cast Central venous access Age >= 75 History of VTE Family history of VTE Factor V Leiden Prothrombin [id number] Lupus anticoagulant Anticardiolipin antibodies Elevated serum homocysteine Heparin-induced thrombocytopenia Other congenital or acquired thrombophilia Stroke (< 1 month) Elective arthroplasty Hip, pelvis, or leg fracture Acute spinal cord injury (< 1 month) Prophylaxis Regimen: Total Risk Factor Score Risk Level Prophylaxis Regimen 0-1 Low Early ambulation 2 Moderate Order ONE of the following: *Sequential Compression Device (SCD) *Heparin 5000 units SQ BID 3-4 Higher Order ONE of the following medications: *Heparin 5000 units SQ TID *Enoxaparin/Lovenox 40 mg SQ daily (WT < 150 kg, CrCl > 30 mL/min) *Enoxaparin/Lovenox 30 mg SQ daily (WT < 150 kg, CrCl > 10-29 mL/min) *Enoxaparin/Lovenox 30 mg SQ BID (WT < 150 kg, CrCl > 30 mL/min) AND/OR *Sequential Compression Device (SCD) 5 or more Highest Order ONE of the following medications: *Heparin 5000 units SQ TID (Preferred with Epidurals) *Enoxaparin/Lovenox 40 mg SQ daily (WT < 150 kg, CrCl > 30 mL/min) *Enoxaparin/Lovenox 30 mg SQ daily (WT < 150 kg, CrCl > 10-29 mL/min) *Enoxaparin/Lovenox 30 mg SQ BID (WT < 150 kg, CrCl > 30 mL/min) AND *Sequential Compression Device (SCD) Assessment and Plan - Assessment (1) Altered mental status Code(s): R41.82 - Altered mental status, unspecified Status: Acute (2) Pulmonary edema Code(s): J81.1 - Chronic pulmonary edema Status: Acute (3) Atrial fibrillation Code(s): I48.91 - Unspecified atrial fibrillation Status: Acute (4) Chronic back pain Code(s): M54.9 - Dorsalgia, unspecified; G89.29 - Other chronic pain Status: Acute (5) COPD (chronic obstructive pulmonary disease) Code(s): J44.9 - Chronic obstructive pulmonary disease, unspecified Status: Acute (6) Bipolar disorder Code(s): F31.9 - Bipolar disorder, unspecified Status: Acute (7) Hypotension Code(s): I95.9 - Hypotension, unspecified Status: Acute - Plan This is a 72-year-old female who presented with altered mental status 3 days. Etiology at this time is unclear but differential diagnosis includes polypharmacy/medication side effect vs. seizure vs. other. There are no signs of infection given normal CBC, no fever, urine negative. CT head no acute abnormalities, plan as below: AMS - Hold all sedating medications -The patient has intrathecal morphine pump, went to get information regarding the pumps of the company can be contacted and the pump can be adjusted -We will consult neuro due to concern of seizure, patient denies history of seizure -We will consult psych to assist with adjusting patient's medications for her bipolar Pulmonary edema -Patient with a history of CHF, was given IV fluids and then developed some dyspnea. Currently she is saturating well and is clinically stable. - Continue to evaluate patient from pulmonary standpoint to see if further doses of lasix are needed -Continue to Hep-Lock IV COPD - continue atrovent Atrial Fibrillation - mediations currently on hold due to hypotension - presented similarly in November, meds were adjusted at that time - monitor on telemetry - consult patients plate preparer, known to Dr. Villafuerte CHF - CXR shows some cardiomegaly - does not appear to be in acute heart failure - obtain BNP Chronic Back Pain - pain meds on hold until patient more awake - morphine pump- company to be contacted by nurse when brings back info (order placed) Hypothyroidism - TSH 4.0, takes Synthroid 75 mcg Hyperkalemia - K 5.7, hold home potassium - EKG reviewed, no peaked T waves, no ST changes, sinus rhythm Patient does not know her medications, but medications were verified with nurse and . I have held the following medications: klonopin, depakote, gabapentin, naloxegol , seroquel, trazodone, venlafaxine (until more awake), cardizem, nadolol (due to hypotension), Case discussed with ER physician and nurse Discussed Condition With: Patient Nurse ED physician (1) Altered mental status Qualifiers: Altered mental status type: disorientation Qualified Code(s): R41.0 - Disorientation, unspecified (2) Pulmonary edema Qualifiers: Chronicity: acute Qualified Code(s): J81.0 - Acute pulmonary edema
[2018-04-27] MEDS: Acetaminophen 325 MG Tablet PO PRN (21:36)
[2018-04-28] MEDS: Levothyroxine 75 MCG Tablet PO SCH (06:07)
--- NOTE | 2018-04-28 07:58 | P.PNIM ---
Subjective Interval history: Patient was seen and examined this morning. She could state her name and but was not oriented to place. She denied chest pain, SOB, or abdominal pain. Nurse at bedside stated that she had two formed bowel movements this morning. Physical Exam Vital signs: Vital Signs 04/27/18 13:14 04/27/18 14:12 04/27/18 14:13 Temperature 98.5 F Pulse Rate 74 77 Respiratory Rate 16 18 Blood Pressure 99/58 L 94/60 L Pulse Oximetry 95 97 99 04/27/18 14:45 04/27/18 15:23 04/27/18 16:31 Temperature Pulse Rate 84 93 H 78 Respiratory Rate 18 28 H 18 Blood Pressure 99/65 L 122/78 90/58 L Pulse Oximetry 96 99 97 04/27/18 16:36 04/27/18 18:32 04/27/18 18:50 Temperature 98.0 F Pulse Rate 71 71 Respiratory Rate 14 16 18 Blood Pressure 95/55 L 93/58 L Pulse Oximetry 98 99 04/27/18 19:00 04/27/18 20:00 04/27/18 21:00 Temperature 97.9 F Pulse Rate 66 70 64 Respiratory Rate 18 Blood Pressure 100/64 Pulse Oximetry 96 04/27/18 22:00 04/27/18 23:00 04/27/18 23:26 Temperature Pulse Rate 62 64 64 Respiratory Rate 16 Blood Pressure 91/60 L Pulse Oximetry 94 L 04/27/18 23:29 04/28/18 00:00 04/28/18 01:00 Temperature Pulse Rate 58 L 58 L Respiratory Rate Blood Pressure Pulse Oximetry 95 04/28/18 02:00 04/28/18 03:00 04/28/18 04:00 Temperature Pulse Rate 62 55 L 56 L Respiratory Rate 16 Blood Pressure 97/56 L Pulse Oximetry 95 04/28/18 05:00 04/28/18 06:00 Temperature Pulse Rate 64 56 L Respiratory Rate Blood Pressure Pulse Oximetry Intake & Output 04/27/18 04/28/18 04/28/18 18:59 06:59 18:59 Intake Total 1999 100 / 100 Output Total 1450 / 1450 500 / 500 Balance 550 / 550 -400 / -400 Weight 63.049 kg 65.3 kg Intake: IV 1999 NS Inj 1,000 ML @ Wide Open IV. 1999 SIG BOLUS ONE Rx#:[id number] Oral 100 / 100 Output: Urine Amount (Catheter) 1450 / 1450 500 / 500 Indwelling Urethral Catheter 1150 / 1150 500 / 500 Straight 300 / 300 Other: # Bowel Movements 0 Narrative: General: WNWD female in NAD, looks confused HEENT: NCAT, EOMI , neck supple, good movements RESP: Mostly CTA, mild basilar crackles CV: RRR Abd: NTND, normal bowel sounds MSK: Tender to palpation per patient but no palpable cord appreciated, no edema or cyanosis NEURO: alert and oriented x2 - Urinary Catheter Management Straight Cath placed during this visit: yes Reason for continuing: Hourly intake/output Insertion date: 04/27/18 Insertion time: 16:10 Indwelling Urethral Catheter Cath placed during this visit: yes Reason for continuing: Hourly intake/output Insertion date: 04/27/18 Results - Labs CBC & Chem 7: 04/28/18 12:02 04/28/18 12:02 Laboratory Results - last 24 hr 04/27/18 04/27/18 04/27/18 13:30 13:30 14:30 WBC 7.4 RBC 3.42 L Hgb 12.0 Hct 34.8 L MCV 101.8 H MCH 35.2 H MCHC 34.6 RDW 13.2 Plt Count 241 MPV 9.7 Neut % (Auto) 75.5 H Lymph % (Auto) 16.3 [place] % (Auto) 5.4 Eos % (Auto) 2.1 Baso % (Auto) 0.7 Neut # (Auto) 5.6 Lymph # (Auto) 1.2 [place] # (Auto) 0.4 Eos # (Auto) 0.2 Baso # (Auto) 0.1 WBC Differential . Differential Comment Auto diff final Sodium 137 Potassium 5.7 H Chloride 103 Carbon Dioxide 30.2 Anion Gap 4 L BUN 18 Creatinine 0.90 Estimated GFR 62 L POC Glucose Fasting Glucose 78 Calcium 9.0 Total Bilirubin 0.3 AST 22 ALT 13 Alkaline Phosphatase 61 Ammonia 27 B-Natriuretic Peptide Total Protein 6.9 Albumin 3.1 L TSH 4.050 H Urine Color Urine Clarity Urine pH Ur Specific [place] Urine Protein Urine Glucose (UA) Urine Ketones Urine Occult Blood Urine Nitrate Urine Bilirubin Urine Urobilinogen Ur Leukocyte Esterase Urine RBC Urine WBC Ur Squamous Epith Cells Hyaline Casts Urine Mucus Micro UA Comment Urine Culture Comments Urine Opiates Screen Ur Barbiturates Screen Valproic Acid 38 L Ur Amphetamines Screen U Benzodiazepines Scrn [place] Urine Cocaine Screen U Cannabinoids Screen Serum Alcohol Less than 3 04/27/18 04/27/18 04/27/18 14:44 14:44 15:00 WBC RBC Hgb Hct MCV MCH MCHC RDW Plt Count MPV Neut % (Auto) Lymph % (Auto) [place] % (Auto) Eos % (Auto) Baso % (Auto) Neut # (Auto) Lymph # (Auto) [place] # (Auto) Eos # (Auto) Baso # (Auto) WBC Differential Differential Comment Sodium Potassium Chloride Carbon Dioxide Anion Gap BUN Creatinine Estimated GFR POC Glucose 97 Fasting Glucose Calcium Total Bilirubin AST ALT Alkaline Phosphatase Ammonia B-Natriuretic Peptide 219 H Total Protein Albumin TSH Urine Color Yellow Urine Clarity Hazy H Urine pH 7.0 Ur Specific [place] 1.013 Urine Protein Negative Urine Glucose (UA) Negative Urine Ketones Negative Urine Occult Blood Negative Urine Nitrate Negative Urine Bilirubin Negative Urine Urobilinogen Less than 2 Ur Leukocyte Esterase Negative Urine RBC 2 Urine WBC Less than 1 Ur Squamous Epith Cells 1 Hyaline Casts 15 Urine Mucus Few H Micro UA Comment Cath-culture not ind Urine Culture Comments Cath-cult not ind Urine Opiates Screen Ur Barbiturates Screen Valproic Acid Ur Amphetamines Screen U Benzodiazepines Scrn [place] Urine Cocaine Screen U Cannabinoids Screen Serum Alcohol 04/27/18 04/27/18 04/28/18 15:00 15:45 05:07 WBC RBC Hgb Hct MCV MCH MCHC RDW Plt Count MPV Neut % (Auto) Lymph % (Auto) [place] % (Auto) Eos % (Auto) Baso % (Auto) Neut # (Auto) Lymph # (Auto) [place] # (Auto) Eos # (Auto) Baso # (Auto) WBC Differential Differential Comment Sodium Potassium Chloride Carbon Dioxide Anion Gap BUN Creatinine Estimated GFR POC Glucose 90 Fasting Glucose Calcium Total Bilirubin AST ALT Alkaline Phosphatase Ammonia B-Natriuretic Peptide Total Protein Albumin TSH Urine Color Urine Clarity Urine pH Ur Specific [place] Urine Protein Urine Glucose (UA) Urine Ketones Urine Occult Blood Urine Nitrate Urine Bilirubin Urine Urobilinogen Ur Leukocyte Esterase Urine RBC Urine WBC Ur Squamous Epith Cells Hyaline Casts Urine Mucus Micro UA Comment Urine Culture Comments Urine Opiates Screen Pos H Ur Barbiturates Screen Neg Valproic Acid Ur Amphetamines Screen Neg U Benzodiazepines Scrn Pos H [place] 0.6 Urine Cocaine Screen Neg U Cannabinoids Screen Neg Serum Alcohol - Imaging Chest X-Ray 04/28/18 CONCLUSION: Improved lung exam. Impressions Head CT 04/27/18 14:11 CONCLUSION: 1. No acute intracranial abnormalities Chest X-Ray 04/27/18 15:20 CONCLUSION: Mild congestive heart failure. Trace pleural fluid. Assessment and Plan - Assessment (1) Altered mental status Code(s): R41.82 - Altered mental status, unspecified Status: Acute Plan: Slightly improved from previous day but still confused - Continue to hold all sedating medications -The patient has intrathecal morphine pump - Waiting ion information from spouse in order to contact the company for the pump to be adjusted -Ammonia wnl -CT head normal -WBC jumped from 7.4 on the previous day to 17.5 today -Patient afebrile, however will start empiric antibiotics and recheck in the am -DC if still afebrile, downtrending WBC -EEG performed today, interpretation pending -Neurology on board - appreciate recs -Pysch consult pending for adjustment of medication dosages (2) Pulmonary edema Code(s): J81.1 - Chronic pulmonary edema Status: Acute Plan: Improved on CXR -BNP still pending for today -On 2-4 L 02 by [place] -Was initially stable earlier this morning then started complaining for SOB after EEG -Given Lasix 40mg IV push -Duoneb treatments -Continue Lasix 40mg PO daily in the am -Continue to monitor -Respiratory therapist on board (3) Atrial fibrillation Code(s): I48.91 - Unspecified atrial fibrillation Status: Chronic Plan: - Pulse ranging from 60 to 87 - Medications were held due to hypotension - may restart as BP continues to stabilize - presented similarly in November, meds were adjusted at that time - monitor on telemetry - cardiology consult, known to Dr. Villafuerte (4) Chronic back pain Code(s): M54.9 - Dorsalgia, unspecified; G89.29 - Other chronic pain Status: Acute Plan: - pain meds on hold until patient more awake - morphine pump- company to be contacted by nurse when brings back info (order placed previously) (5) COPD (chronic obstructive pulmonary disease) Code(s): J44.9 - Chronic obstructive pulmonary disease, unspecified Status: Acute Plan: -Duonebs due to shortness of breath -Will continue Atrovent when she improves (6) Bipolar disorder Code(s): F31.9 - Bipolar disorder, unspecified Status: Acute Plan: -Holding Seroquel and Depakote due to AMS - Psych consult pending for medication recommendations (7) Hypotension Code(s): I95.9 - Hypotension, unspecified Status: Resolved Plan: Resolved Was 124/74 He[place]ock IV due to pulmonary edema and hx of CHF Continue to monitor BP with Q4h vitals (8) Hypothyroidism Code(s): E03.9 - Hypothyroidism, unspecified Status: Acute Plan: TSH 4.050 -On Synthroid 75mcg -May need adjustment - Plan Code Status: Full code Discussed Condition With: Patient's nurse Discharge Planning: Pending improvement in AMS (1) Altered mental status Qualifiers: Altered mental status type: disorientation Qualified Code(s): R41.0 - Disorientation, unspecified (2) Pulmonary edema Qualifiers: Chronicity: acute Qualified Code(s): J81.0 - Acute pulmonary edema
--- NOTE | 2018-04-28 08:58 | ECG ---
Date Performed: 04/27/2018 Time Performed: 14:40:46 PTAGE: 72 years EKG: Sinus rhythm POSSIBLE LEFT ATRIAL ENLARGEMENT NONSPECIFIC T-WAVE ABNORMALITY BORDERLINE ECG Prior ECG not suitabl e for comparison secondary to artifact DOCTOR: Jasmine Lemus Interpretating Date/Time 04/28/2018 08:57:27
--- NOTE | 2018-04-28 11:33 | MB ---
cc: Laxmi Pickens MD DATE: 04/28/2018 REASON FOR CONSULTATION: Change in mental status. HISTORY OF PRESENT ILLNESS: This is a 72-year-old woman with history of COPD, heart failure, pericardial window, possible atrial fibrillation, bipolar disorder, low back pain, has a morphine pump. Comes in with 3 days of change in mental status. No history of drug or alcohol abuse. Per ER, it seems that she was found with elevated ammonia level as an outpatient. [place] was being weaned off. Apparently, she was hypotensive on admission, given some bolus of IV fluids, developed pulmonary edema and some shortness of breath, received another 40 mg of IV Lasix. The patient currently is in room 243 in the cardiac floor complaining of shortness of breath. She has 2 liters of oxygen, just received a nebulizer treatment and I am told she is sating normally, but still complains she cannot breathe. PAST MEDICAL HISTORY: As stated. SOCIAL HISTORY: Apparently and lives with her . No history of abuse. PHYSICAL EXAMINATION: VITAL SIGNS: Temperature is 98.2, pulse 65, respiratory rate 20, blood pressure 124/74, saturating 99% on 2 liters nasal cannula. NECK: Supple. HEART: Regular. LUNGS: Appear clear. NEUROLOGIC: She is awake, alert, but confused, fixated on her oxygenation. At this time does not really participate with my exam. Her pupils; however, are reactive. Her face is symmetrical. Speech is clear. Motor arora, she seems to move everything equally and holding up her oxygen nasal cannula, adjusting it. Moving both arms equally. No leg lag noted. DTRs are 1+. Toes downgoing. LABORATORY DATA: Reviewed. Her hemoglobin is 12, white count 7.4, MCV 101.8, platelets 241,000. Chemistries: Potassium yesterday was 5.7. BNP 219. TSH 4.0 GFR 62. UA hazy. A little bit of mucus. Culture was not indicated. Toxicology screen positive for opiates and benzodiazepines. Amylase on Depakote is 38. CT head was done and was unremarkable. Her ammonia level is 27. ASSESSMENT AND PLAN: This is a 72-year-old woman with confusion and change in mental status, waxes and wanes. I am not sure if it is due to the morphine pump since it states that there was not any real change in dose. She is also on trazodone, lithium, Depakote and clonazepam. I will go ahead and get an EEG. I am going back into her chart, she was seen in the past by pulmonary. Would recommend pulmonary follow her as well. Apparently, at that time there was an issue with her having pleural effusion and pericardial window. She had a chest x-ray on this admission that shows mild congestive heart failure, trace pleural fluid. Will defer respiratory pulmonary issues to her internal medicine team. Neurologically, will go ahead and get an EEG. I do not think MRI would be needed at this point. As far as medications, may need to have psychiatry consider adjusting her medications. Continue current care. EEG will be ordered and further recommendations as needed will be made. Please call me with any questions or concerns. MD ALEXANDER Hooper/AINSLEY , 11:05 AM , 11:14 AM
--- NOTE | 2018-04-28 11:38 | XR ---
EXAM DATE: 04/28/2018 11:33 AM EDT AGE/SEX: 72 years / Female INDICATIONS: Short of breath. CLINICAL DATA: This is the patient's subsequent encounter. Patient reports that signs and symptoms h ave been present for 2 days and indicates a pain score of 3/10. MEDICAL/SURGICAL HISTORY: . COPD . Spinal stimulator COMPARISON: . FINDINGS: AP upright portable view of the chest demonstrates improved lung exam with decreased bilateral hazy a cinar airspace opacities. The heart size is normal. Pulmonary vasculature appears mildly prominent bu t decreased in caliber as compared to the prior exam. Osseous structures demonstrate a neurostimulato r overlying the thoracic spine. CONCLUSION: Improved lung exam. Electronically signed by: Flor Byrne MD 04/28/2018 11:37 AM EDT
[2018-04-28 12:11] LABS: Hemoglobin 13.4 gm/dL (11.6-15.3); Mean Corpuscular HGB Conc 32.6 % (32.0-36.0); Mean Corpuscular Hemoglobin 32.9 pg (27.0-34.0); Mean Corpuscular Volume 100.8 fL (80.0-100.0); Platelet Count 270 th/mm3 (150-450); Red Blood Count 4.06 mil/mm3 (4.00-5.30); Red Cell Distribution Width 13.3 % (11.6-17.2); White Blood Count 17.5 th/mm3 (4.0-11.0)
[2018-04-28] MEDS: Budesonide-Formoterol 160/4.5 MCG 6 GM Inhaler INH SCH ×2 (12:12→21:05)
[2018-04-28 12:36] LABS: Alanine Aminotransferase 21 U/L (10-53); Albumin 3.3 g/dL (3.4-5.0); Alkaline Phosphatase 69 U/L (45-117); Anion Gap 10 meq/L (5-15); Aspartate Aminotransferase 55 U/L (15-37); Blood Urea Nitrogen 18 mg/dL (7-18); Calcium 9.6 mg/dL (8.5-10.1); Carbon Dioxide 26.1 meq/L (21.0-32.0); Chloride 100 meq/L (98-107); Glomerular Filtration Rate 69 mL/min (>89); Glucose,Random 89 mg/dL (74-106); Potassium 3.8 meq/L (3.5-5.1); Sodium 136 meq/L (136-145); Total Protein 7.7 g/dL (6.4-8.2)
--- NOTE | 2018-04-28 14:47 | MB ---
cc: Catracho Funk MD DATE: 04/28/2018 REQUESTING PHYSICIAN: Dr. Parikh. REASON FOR CONSULTATION: Shortness of breath and asthma. HISTORY OF PRESENT ILLNESS: Radha Duque is a 72-year-old female with history of congestive heart failure, COPD, history of pericardial window placement. The patient had chronic pain and pain pump. She says her pain pump was adjusted. She was brought to the hospital with 3 days history of worsening mental status. The patient was evaluated in the hospital here. Ammonia level was high and she was hypotensive. She was given multiple boluses of IV fluid and she went to pulmonary edema, received Lasix. This morning, she was very short of breath, was given 0.25 mg of Ativan. She calmed down. The breathing is significantly better now. The patient is alert, awake, but still confused, does not remember many of the things. PAST MEDICAL HISTORY: As per records, history of COPD, congestive heart failure. Possibility of atrial fibrillation. Bipolar disorder, chronic pain. She has pain pump. MEDICATIONS: She is currently taking Tylenol, Albuterol nebulizer treatments, Symbicort 160/4.5 two puffs twice a day, Lasix 40 mg daily, levothyroxine 75 mcg. ALLERGIES: SHE IS ALLERGIC TO PENICILLIN, SULFA, LATEX, PIROXICAM. SOCIAL HISTORY: She is . She states that she used to work, but she cannot tell me what she worked for. Has history of smoking. FAMILY HISTORY: She says she has 1 child. REVIEW OF SYSTEMS: She has chronic pain, denies any shortness of breath. No headache. No nausea or vomiting. Denies any malignancy. Again, the patient is not a reliable historian. PHYSICAL EXAMINATION: GENERAL: Elderly female, alert, awake, not in acute distress. VITAL SIGNS: Blood pressure 125/53, heart rate 70, respirations 18, temperature 98. HEENT: Pupils are equal and reactive to light. Oral mucosa and nasal mucosa normal. NECK: Supple. JVP not raised. CHEST: She has scattered rales. CARDIOVASCULAR: S1, S2 normal. ABDOMEN: Benign. EXTREMITIES: No edema. IMPRESSION: 1. Pulmonary edema is significantly better. 2. COPD/bronchial asthma. 3. Altered mental status is improving. 4. Chronic pain. 5. Congestive heart failure. 6. Bipolar disorder. PLAN: The patient is being gently diuresed. Monitor her renal functions. Continue aerosol treatment, and supplemental oxygen. Once she gets better, we will check her pulmonary function studies. Neurologist is following the patient. Further treatment pending the course in the hospital. Thank you, Dr. Parikh, for this consultation. Catracho Funk MD ADA/TL , 02:14 PM , 02:25 PM
--- NOTE | 2018-04-28 16:19 | P.CONPSY ---
Provisional Diagnosis Admission Date: April 27, 2018 16:31 [place] Bipolar disorder History of Present Illness Service: Psychiatry Consult date: 04/28/18 Reason for Consult: Altered mental status, history of bipolar disorder Primary Care Provider: UNKNOWN History of Present Illness: Patient is a 72-year-old woman, , domiciled alone with home health aid during the day, with a past psychiatric history of bipolar disorder, previous psychiatric admissions last being years ago, no previous suicide attempts or self-injurious behavior, has mental health provider, Dr. Oviedo in [place], was brought to the ED by due to altered mental status for the past 3 days which patient currently admitted to the medical service for AMS , pulmonary edema, A. fib, possible seizures, and due to patient's history of bipolar disorder psychiatry was consulted for evaluation of medication management. Patient was found lying hospital bed with brother at bedside interviewed alone. Patient states that she is feeling "fine" noted to be alert and oriented only to person and place, also noted was some hearing impairment. Patient states that she had a seizure prior to her admission as well as less evening and this morning. She recalls having had recent medication changes with her psychiatrist but unable to recall her medications at this time but is able to remember that her "levels were too high". Patient reports her mood has been "fine" denying irritability, racing thoughts, has been having some difficulty with sleep denying any perceptual disturbances or delusions. Patient states that she does have help with her care during the day but is alone in the evenings and weekends. She mentions that her medications are managed by her and by the home health aide but does not recall which medication she takes. Patient not noted to have any mood symptoms or psychotic symptoms at this time but is noted to have some confusion during interview with recalling history and recent events. Past psychiatric history: Previous psychiatric diagnoses of bipolar disorder as per patient, previous psychiatric admissions last time being years ago, no suicide attempt or self-injurious behavior. Patient reports outpatient mental health follow-up with Dr. Oviedo in [place]. As per chart psychotropic medications include quetiapine 100 mg p.o. at bedtime, trazodone 200 mg p.o. at bedtime, Effexor 150 mg daily, Depakote 500 mg at bedtime. Clonazepam also noted in chart. Past medical history: A. fib, chronic back pain, COPD, hypothyroidism Allergies: Penicillin, sulfa, latex, piroxicam, cyclobenzaprine, hydroxyzine Social history: Domiciled alone, has a home health aide during the week from 9 to 5 PM, supported financially by her . Patient states that she plans on going to live with her daughter upon discharge as she realizes she needs more care. Collateral information obtained by patient's brother who was visiting, states that she had recent medication changes 1 week ago, states seems more confused, recalls that patient having had couple of seizures at her house but denies any bizarre behavior. he mentions that the patient has had confusion in the past but noticed patient more confused recently. He mentions of a similar episode which patient was hospitalized in the past. Review of Systems All other systems reviewed negative except as stated in HPI [facility] - History History Provided By: Patient, Family Member - Medical History Medical History: Medical History (Last Updated 04/27/18 @ 17:48 by Kaltyn Rey MD) Asthma Atrial fibrillation Atrial fibrillation Back pain COPD (chronic obstructive pulmonary disease) Spinal cord stimulator status - Surgical History Surgical History: Surgical History (Last Updated 04/27/18 @ 13:22 by Ginny Santo) Hx of tonsillectomy - Tobacco History Second Hand Smoke Exposure: No Smoking Status: Never smoker - Alcohol History How Often Do You Have a Drink Containing Alcohol: Never - Substance Use History Substance History: No History of Abuse - Travel History Recent Travel in the [place] Within the Last 8 Weeks: No Recent Travel Out of the Country Within the Last 8 Weeks: No - Immunization History Tetanus Immunization: Unsure Hx Influenza Vaccine This Season: Yes Medications and Allergies Active Medications: Active Medications Acetaminophen (Tylenol) 650 mg PO Q4H PRN PRN Reason: FEVER/HEADACHE Last Admin: 04/27/18 21:36 Dose: 650 mg Albuterol (Duoneb Neb (Prn)) 1 ampul NEB Q4HR NEB PRN PRN Reason: SHORTNESS OF BREATH Last Admin: 04/28/18 10:36 Dose: 1 ampul Bisacodyl (Dulcolax Supp) 10 mg RECTAL DAILY PRN PRN Reason: SEVERE CONSITIPATION Budesonide/Formoterol Fumarate (Symbicort 160/4.5 Mcg Inh) 2 puff INH BID PAULINE Last Admin: 04/28/18 12:12 Dose: 2 puff Furosemide (Lasix) 40 mg PO BID@0900,1800 PAULINE Ipratropium [place] (Atrovent Neb) 0.5 mg INH Q6HR NEB PRN PRN Reason: Shortness Of Breath Levothyroxine Sodium (Synthroid) 75 mcg PO DAILY@0600 PAULINE Last Admin: 04/28/18 06:07 Dose: 75 mcg Sennosides (Senokot) 17.2 mg PO Q12H PRN PRN Reason: Moderate Constipation Sodium Chloride (Ns Flush) 2 ml IV.FLUSH PRN PRN PRN Reason: FLUSH AFTER USING IV ACCESS Last Admin: 04/27/18 21:37 Dose: 2 ml Allergies Allergy/AdvReac Type Severity Reaction Status Date / Time penicillin G Allergy Severe hives Verified 04/27/18 14:10 Sulfa (Sulfonamide Allergy Severe hives Verified 04/27/18 14:10 Antibiotics) latex Allergy Intermediate rash Verified 04/27/18 14:10 piroxicam Allergy Unknown Hives Verified 04/27/18 14:10 cyclobenzaprine AdvReac Intermediate PAU Verified 04/27/18 14:10 hydroxyzine AdvReac Unknown Hives Verified 04/27/18 14:10 Home Medications Medication Instructions Recorded Confirmed Type acyclovir 400 mg PO DAILY 04/27/18 04/27/18 History aspirin 81 mg PO DAILY 04/27/18 04/27/18 History budesonide-formoterol [Symbicort] 2 puff INHALATION HS 04/27/18 04/27/18 History clonazepam [Klonopin] 0.5 mg PO TID 04/27/18 04/27/18 History cyclosporine [Restasis] 1 drp EACH EYE Q12H 04/27/18 04/27/18 History diltiazem HCl 180 mg PO DAILY 04/27/18 04/27/18 History divalproex [Depakote] 500 mg PO HS 04/27/18 04/27/18 History docusate sodium [Colace] 100 mg PO BID 04/27/18 04/27/18 History estradiol 2 mg PO DAILY 04/27/18 04/27/18 History gabapentin 300 mg PO BID 04/27/18 04/27/18 History ipratropium bromide [Atrovent HFA] 1 puff INHALATION Q6H PRN 04/27/18 04/27/18 History lactobacillus combination no.4 1 cap PO DAILY 04/27/18 04/27/18 History [Probiotic] levothyroxine 75 mcg PO DAILY 04/27/18 04/27/18 History loratadine [Claritin] 10 mg PO DAILY PRN 04/27/18 04/27/18 History montelukast [Singulair] 10 mg PO DAILY 04/27/18 04/27/18 History multivitamin 1 tab PO DAILY 04/27/18 04/27/18 History nadolol 20 mg PO DAILY 04/27/18 04/27/18 History naloxegol [Movantik] 25 mg PO HS 04/27/18 04/27/18 History polyethylene glycol 3350 [Miralax] 17 g PO DAILY PRN 04/27/18 04/27/18 History potassium chloride 20 meq PO DAILY 04/27/18 04/27/18 History psyllium seed (sugar) [Metamucil 1 tsp PO BID 04/27/18 04/27/18 History (sugar)] quetiapine [Seroquel] 100 mg PO HS 04/27/18 04/27/18 History trazodone 200 mg PO HS 04/27/18 04/27/18 History venlafaxine [Effexor XR] 150 mg PO DAILY 04/27/18 04/27/18 History vit C,J-Dq-medgm-lutein-zeaxan 1 tab PO BID 04/27/18 04/27/18 History [PreserVision AREDS 2] Exam Vital signs: Vital Signs 04/27/18 16:31 04/27/18 16:36 04/27/18 18:32 Temperature Pulse Rate 78 71 Respiratory Rate 18 14 16 Blood Pressure 90/58 L 95/55 L Pulse Oximetry 97 98 04/27/18 18:50 04/27/18 19:00 04/27/18 20:00 Temperature 98.0 F 97.9 F Pulse Rate 71 66 70 Respiratory Rate 18 18 Blood Pressure 93/58 L 100/64 Pulse Oximetry 99 96 04/27/18 21:00 04/27/18 22:00 04/27/18 23:00 Temperature Pulse Rate 64 62 64 Respiratory Rate Blood Pressure Pulse Oximetry 04/27/18 23:26 04/27/18 23:29 04/28/18 00:00 Temperature Pulse Rate 64 58 L Respiratory Rate 16 Blood Pressure 91/60 L Pulse Oximetry 94 L 95 04/28/18 01:00 04/28/18 02:00 04/28/18 03:00 Temperature Pulse Rate 58 L 62 55 L Respiratory Rate Blood Pressure Pulse Oximetry 04/28/18 04:00 04/28/18 05:00 04/28/18 06:00 Temperature Pulse Rate 56 L 64 56 L Respiratory Rate 16 Blood Pressure 97/56 L Pulse Oximetry 95 04/28/18 07:00 04/28/18 08:00 04/28/18 09:00 Temperature 98.2 F Pulse Rate 75 87 63 Respiratory Rate 22 Blood Pressure 124/74 Pulse Oximetry 99 04/28/18 10:00 04/28/18 10:36 04/28/18 11:00 Temperature Pulse Rate 60 65 64 Respiratory Rate 20 Blood Pressure Pulse Oximetry 04/28/18 12:00 04/28/18 13:00 04/28/18 14:00 Temperature 98.0 F Pulse Rate 66 72 77 Respiratory Rate 18 Blood Pressure 125/53 L Pulse Oximetry 99 Intake & Output 04/27/18 04/28/18 04/28/18 18:59 06:59 18:59 Intake Total 1999 100 / 100 Output Total 1450 / 1450 500 / 500 Balance 550 / 550 -400 / -400 Weight 63.049 kg 65.3 kg Intake: IV 1999 NS Inj 1,000 ML @ Wide Open IV. 1999 SIG BOLUS ONE Rx#:[id number] Oral 100 / 100 Output: Urine Amount (Catheter) 1450 / 1450 500 / 500 Indwelling Urethral Catheter 1150 / 1150 500 / 500 Straight 300 / 300 Other: Date of Last Bowel Movement 04/28/18 # Bowel Movements 0 Narrative: Not noted to be in acute distress, no tremor or EPS. - Constitutional no acute distress, cooperative Mental Status Examination Appearance: Other (In hospital gown) Consciousness: Alert Orientation: Person, Place Speech: Slow (slightly) Language: Adequate Fund of Knowledge: Inadequate Attention and Concentration: Other (fair) Memory: Impaired Mood: Other ("fine") Affect: Other (restricted) Thought Process & Associations: Intact, Linear Thought Content: Appropriate Hallucination Type: None Delusion Type: None Suicidal Ideation: No Suicidal Plan: No Suicidal Intention: No Homicidal Ideation: No Homicidal Plan: No Homicidal Intention: No Insight: Fair Judgment: Impulsive Assessment and Plan - Assessment (1) Bipolar disorder Code(s): F31.9 - Bipolar disorder, unspecified Status: Acute - Plan Plan: Estimated LOS: [] days Patient is a 72-year-old woman who carries a diagnosis of bipolar disorder, remote psychiatric admissions, no previous suicide attempt or self- injurious behavior currently admitted to the medical service for altered mental status, pulmonary edema, A. fib, who had recent medication changes along with reported possible seizures which psychiatry was consulted for management of psychotropic medications. Unclear at this time what the changes were as confirmation will be have to be made through her outpatient psychiatrist. Patient has had medications held due to concern for polypharmacy as well as sedating medication influencing current mental status and evaluation of seizures by neurology currently in progress. Patient previously on Depakote which can be continued for mood stabilization and titrated to reach therapeutic level of 50-100, although Depakote may cause hyperammonemia (>80) which should be monitored, patient's recent ammonia level was within normal limits. Unclear if patient had abrupt discontinuation of clonazepam which may cause seizures from benzo withdrawal. Would recommend restart Depakote for mood stabilization. May continue to hold quetiapine, venlafaxine along with trazodone until patient has improved medically and could be restarted at a later time if indicated. Patient at this time with no mood symptoms suggesting psychiatric decompensation. Consult appreciated. Justification for Continued Inpatient Stay: At risk for further decompensation at lower level of care.
[2018-04-28] MEDS: Acetaminophen 325 MG Tablet PO PRN (16:53)
[2018-04-28] MEDS: Aztreonam Inj 2 GM in Sodium Chloride 0.9% Inj 100 ML IV.SIG SCH (17:16)
--- NOTE | 2018-04-28 18:04 | MB ---
cc: Reji Ramirez MD DATE: 04/28/2018 REFERRING PHYSICIAN: Katlyn Rey CHIEF COMPLAINT: Shortness of breath. HISTORY OF PRESENT ILLNESS: Mrs. Duque is a very pleasant 72-year-old female who has got a past medical history of paroxysmal atrial fibrillation, currently in sinus rhythm, maintained on aspirin, history of a pericardial window after pericardial effusion, bipolar disorder, COPD, chronic back pain, on intrathecal morphine pump, who presents to the emergency room with 3 days' onset of altered mental status. In interview of the patient, she reports that she is having shortness of breath. She denies any chest pain, PND, orthopnea or lower extremity edema. She is currently being worked up for organic causes of her altered mental status, especially in the setting of an intrathecal morphine pump. Unable to obtain further history from the patient. PAST MEDICAL HISTORY: 1. History of pericardial effusion, status post pericardial window. 2. Paroxysmal atrial fibrillation, on aspirin. 3. COPD. 4. Bipolar disorder. 5. Ejection fraction of 50-55% on last transthoracic echocardiogram. MEDICATIONS: Reviewed in the electronic medical record. She is currently on albuterol nebulizer treatments, Symbicort, Lasix 40 mg daily, levothyroxine 75 mcg. FAMILY HISTORY: The patient denies any history of sudden cardiac . SOCIAL HISTORY: She has a past medical history of smoking. ALLERGIES: REVIEWED IN ELECTRONIC MEDICAL RECORD. REVIEW OF SYSTEMS: Full 14-point review of system otherwise negative unless mentioned in the HPI. PHYSICAL EXAMINATION: VITAL SIGNS: Blood pressure 120/53, heart rate of 70. GENERAL: Appears to be anxious, but in no acute distress. EYES: No scleral icterus. OROPHARYNX: Moist mucous membranes. NECK: Supple. No jugular venous distention. CHEST: She has some crackles at the base of her lungs. CARDIOVASCULAR: Normal S1, S2. No significant murmurs, rubs or gallops. ABDOMEN: Soft, nontender, nondistended. EXTREMITIES: No significant edema. PSYCHIATRIC: She appears to be anxious. IMPRESSION: 1. Shortness of breath. 2. History of pericardial effusion, status post pericardial window. 3. Paroxysmal atrial fibrillation. 4. Bipolar disorder. 5. Altered mental status. 6. Chronic pain. PLAN: Chest x-ray appears to show evidence of some pulmonary edema. As such, I would agree with continuing further dose of Lasix 40 mg IV. I would repeat a transthoracic echocardiogram. The last transthoracic echocardiogram in 2016 showed that she had an EF of 50-55%. She is currently being treated from a pulmonary standpoint with inhalers. Neurology is also consulted and working up her altered mental status. Thank you for allowing us to participate in the care of Mrs. Duque. Please feel free to contact us with any further questions regarding her care. MD DEBBY Queen/BABS , 04:52 PM , 05:02 PM
[2018-04-28] MEDS: Divalproex 500 MG ER Tablet PO SCH (21:00)
[2018-04-28] MEDS: Furosemide 40 MG Tablet PO SCH (21:04)
[2018-04-29] MEDS: Acetaminophen 325 MG Tablet PO PRN (01:20)
[2018-04-29] MEDS: Aztreonam Inj 2 GM in Sodium Chloride 0.9% Inj 100 ML IV.SIG SCH ×3 (01:26→19:30)
[2018-04-29 06:33] LABS: Baso # (Auto) 0.1 th/mm3 (0.0-0.2); Baso % (Auto) 0.4 % (0.0-2.0); Hematocrit 34.7 % (35.0-46.0); Hemoglobin 11.8 gm/dL (11.6-15.3); Lymph # (Auto) 1.1 th/mm3 (1.0-4.8); Lymph % (Auto) 6.3 % (9.0-44.0); Mean Corpuscular Hemoglobin 33.2 pg (27.0-34.0); Mean Corpuscular Volume 97.6 fL (80.0-100.0); Mono # (Auto) 1.1 th/mm3 (0.0-0.9); Mono % (Auto) 6.5 % (0.0-8.0); Neut # (Auto) 14.6 th/mm3 (1.8-7.7); Neut % (Auto) 86.8 % (16.0-70.0); Platelet Count 225 th/mm3 (150-450); Red Blood Count 3.55 mil/mm3 (4.00-5.30); Red Cell Distribution Width 12.8 % (11.6-17.2); White Blood Count 16.8 th/mm3 (4.0-11.0)
[2018-04-29] MEDS: Levothyroxine 75 MCG Tablet PO SCH (06:47)
[2018-04-29 07:26] LABS: Alanine Aminotransferase 19 U/L (10-53); Albumin 2.6 g/dL (3.4-5.0); Alkaline Phosphatase 54 U/L (45-117); Anion Gap 8 meq/L (5-15); Aspartate Aminotransferase 35 U/L (15-37); Blood Urea Nitrogen 17 mg/dL (7-18); Calcium 8.4 mg/dL (8.5-10.1); Carbon Dioxide 28.1 meq/L (21.0-32.0); Chloride 98 meq/L (98-107); Free T4 (Free Thyroxine) 0.91 ng/dL (0.76-1.46); Glomerular Filtration Rate 83 mL/min (>89); Glucose,Random 128 mg/dL (74-106); Magnesium 1.6 mg/dL (1.5-2.5); Phosphorus 2.9 mg/dL (2.5-4.9); Sodium 134 meq/L (136-145); Total Protein 6.5 g/dL (6.4-8.2)
--- NOTE | 2018-04-29 07:44 | MG ---
cc: Laxmi Pickens MD EEG NUMBER: [id number] REFERRING PHYSICIAN: Dr. Fountain CLINICAL HISTORY: In room 243 with photic stimulation. Awake, anxious confused, answering name, but not other questions. Last EEG [address] was unremarkable. A 72-year-old woman with a change in mental status for the last few days. Recent refill of her morphine intrathecal pump for chronic back pain. She also had a spinal cord stimulator currently on Synthroid and other medications. DESCRIPTION OF RECORD: There is quite a bit of artifact, but overall background predominantly is 3-4-5 Hz. Ongoing continuous myogenic artifact in the frontal leads. EKG portion is artifactual and cannot be interpreted. No epileptiform features. Photic stimulation seems to be a mild driving response. IMPRESSION: Abnormal EEG due to mild slowing of the background consistent with encephalopathic process. No obvious epileptiform features. Clinical correlation. Laxmi Pickens MD DF/DL , 07:29 AM , 07:33 AM
[2018-04-29] MEDS ORDERED: Furosemide 40 MG Tablet PO SCH (09:00)
--- NOTE | 2018-04-29 09:17 | XR ---
EXAM DATE: 04/29/2018 9:06 AM EDT AGE/SEX: 72 years / Female INDICATIONS: . Pneumonia, cough and fever. CLINICAL DATA: This is the patient's initial encounter. Patient reports that signs and symptoms have been present for 3 days and indicates a pain score of 6/10. MEDICAL/SURGICAL HISTORY: Asthma. Tonsillectomy. COMPARISON: [facility] [place] 1[place] SING[place], 04/28/2018. . FINDINGS: PA and lateral views of the chest demonstrate bibasilar densities. Heart mildly enlarged. The cardiom ediastinal contours are unremarkable. Osseous structures are intact. Catheter within the thoracic spi nal canal. CONCLUSION: Bibasilar airspace disease Electronically signed by: Wilmer Jiménez MD 04/29/2018 9:15 AM EDT
[2018-04-29] MEDS: Furosemide 40 MG Tablet PO SCH ×2 (10:25→19:30)
[2018-04-29] MEDS: Budesonide-Formoterol 160/4.5 MCG 6 GM Inhaler INH SCH ×2 (10:25→21:06)
[2018-04-29 16:18] LABS: Hemoglobin A1c 4.8 % (4.3-6.0)
[2018-04-29] MEDS ORDERED: Potassium Chloride 10 MEQ ER Capsule PO ONE (16:28)
[2018-04-29] MEDS ORDERED: PT:CYCLOSPORINE OPTH SOL EACH EYE SCH (16:30)
[2018-04-29] MEDS ORDERED: [UNRECOGNIZED DRUG - OTHER] PO SCH (16:30)
--- NOTE | 2018-04-29 16:33 | P.PNIM ---
Subjective Interval history: This is a 72 yo female patient with a medical history significant for bipolar disorder, COPD, heart failure, and chronic back pain on an intrathecal morphine pump. The patient and presented to ER with concern for AMS x 3 days. Patient is only able to provide a limited amount of history. Patient states that her pump had been being adjusted as an outpatient. Per ER physician who spoke with the , there is no concern or suspicion of overdose. There is no history of alcohol or drug abuse. Per ER physician ammonia was found to be elevated as an outpatient so the lithium was being weaned off. Patient was hypotensive on admission and was given several boluses of IV fluids. She later developed some pulmonary edema with some shortness of breath. She received 40 mg of IV Lasix. She was hep-locked. Patient currently reports that she feels well except for having back pain. She denies shortness of breath or chest pain. Her is not here currently, she reports that he knows names of all her medications. Per nursing report on arrival to the ER patient was noted to exhibit some tremors. Concern was for seizure. Patient is on seizure precautions. Per review of EMR, patient presented similarly in November with altered mental status and hypotension. Patient was also found to be bradycardic at that time likely to due to her high doses of antiarrhythmics. 8-5 Patient was seen and examined this morning. She could state her name and but was not oriented to place. She denied chest pain, SOB, or abdominal pain. Nurse at bedside stated that she had two formed bowel movements this morning. 8-6 REMAINS CONFUSED SEEN BY NEUROLOGY SEEN BY CARDIOLOGY SEEN BY PULMONARY SEEN BY PSYCHIATRY BEING DIURESED POTASSIUM DECREASED WILL REPLACE AM LABS PT AND OT TO EVAL AND TREAT REPLACE POTASSIUM SEE MY ORDERS HAS CHRONIC PAIN PUMP IN PLACE WITH MORPHINE INFUSING Physical Exam Vital signs: Vital Signs 04/28/18 18:00 04/28/18 19:00 04/28/18 20:00 Temperature 98.5 F Pulse Rate 70 66 60 Respiratory Rate 16 16 Blood Pressure 108/55 L 108/55 L Pulse Oximetry 98 98 04/28/18 21:00 04/28/18 22:00 04/28/18 23:00 Temperature Pulse Rate 60 60 60 Respiratory Rate Blood Pressure Pulse Oximetry 04/29/18 00:00 04/29/18 01:00 04/29/18 02:00 Temperature 98.6 F Pulse Rate 65 66 66 Respiratory Rate Blood Pressure 129/64 Pulse Oximetry 04/29/18 03:00 04/29/18 04:00 04/29/18 05:00 Temperature 98.1 F Pulse Rate 64 63 63 Respiratory Rate Blood Pressure 137/69 Pulse Oximetry 04/29/18 06:00 04/29/18 07:00 04/29/18 08:00 Temperature 97.7 F Pulse Rate 64 63 65 Respiratory Rate 17 Blood Pressure 134/68 Pulse Oximetry 100 04/29/18 09:00 04/29/18 09:41 04/29/18 10:00 Temperature Pulse Rate 61 64 Respiratory Rate Blood Pressure Pulse Oximetry 99 04/29/18 11:00 04/29/18 11:59 04/29/18 12:00 Temperature 97.7 F Pulse Rate 64 64 70 Respiratory Rate 17 Blood Pressure 127/65 Pulse Oximetry 04/29/18 13:00 04/29/18 15:00 04/29/18 15:37 Temperature 97.4 F L Pulse Rate 78 74 72 Respiratory Rate 18 Blood Pressure 129/80 Pulse Oximetry Intake & Output 04/28/18 04/29/18 04/29/18 18:59 06:59 18:59 Intake Total 1580 / 1580 490 / 490 100 / 100 Output Total 1600 / 1600 400 / 400 Balance -20 / -20 90 / 90 100 / 100 Weight 63.8 kg Intake: IV 100 / 100 250 / 250 100 / 100 Azactam Inj 2 GM In NS Inj 100 100 / 100 100 / 100 100 / 100 ML @ 200 mls/hr IV.SIG Q8H [facility] Rx#:[id number] Levaquin 750 mg Premix Inj 150 150 / 150 ML @ 100 mls/hr IV.SIG Q24H [facility] Rx#:[id number] Oral 1480 / 1480 240 / 240 Output: Urine 400 / 400 Urine Amount (Catheter) 1600 / 1600 Indwelling Urethral Catheter 1600 / 1600 Other: Date of Last Bowel Movement 04/28/18 04/29/18 # Bowel Movements 2 # Incontinent Bowel Movements 2 1 Narrative: General: WNWD female in NAD, looks confused HEENT: NCAT, EOMI , neck supple, good movements RESP: Mostly CTA, mild basilar crackles CV: RRR S1, S2 NO S3 OR S4 NO HEAVE OR THRILL Abd: NTND, normal bowel sounds MSK: Tender to palpation per patient but no palpable cord appreciated, no edema or cyanosis NEURO: alert and oriented x2 INSIGHT AND JUDGEMENT ARE LIMITED MOOD AND BEHAVIOR ARE INAPPROPRIATE - Urinary Catheter Management Straight Cath placed during this visit: yes Reason for continuing: Hourly intake/output Insertion date: 04/27/18 Insertion time: 16:10 Indwelling Urethral Catheter Cath placed during this visit: yes Reason for continuing: Hourly intake/output Insertion date: 04/27/18 Results - Labs CBC & Chem 7: 04/29/18 06:22 04/29/18 06:22 Laboratory Results - last 24 hr 04/29/18 04/29/18 04/29/18 06:22 06:22 06:22 WBC RBC Hgb Hct MCV MCH MCHC RDW Plt Count MPV Neut % (Auto) Lymph % (Auto) [place] % (Auto) Eos % (Auto) Baso % (Auto) Neut # (Auto) Lymph # (Auto) [place] # (Auto) Eos # (Auto) Baso # (Auto) WBC Differential Differential Comment Sodium 134 L Potassium 3.0 L D Chloride 98 Carbon Dioxide 28.1 Anion Gap 8 BUN 17 Creatinine 0.70 Estimated GFR 83 L POC Glucose Random Glucose 128 H Calcium 8.4 L D Phosphorus 2.9 Magnesium 1.6 Total Bilirubin 0.5 AST 35 ALT 19 Alkaline Phosphatase 54 Ammonia 26 B-Natriuretic Peptide 2239 H Total Protein 6.5 D Albumin 2.6 L D TSH 4.790 H Free T4 0.91 04/29/18 04/29/18 06:22 11:01 WBC 16.8 H RBC 3.55 L Hgb 11.8 Hct 34.7 L MCV 97.6 MCH 33.2 MCHC 34.0 RDW 12.8 Plt Count 225 MPV 9.0 Neut % (Auto) 86.8 H Lymph % (Auto) 6.3 L [place] % (Auto) 6.5 Eos % (Auto) 0.0 Baso % (Auto) 0.4 Neut # (Auto) 14.6 H Lymph # (Auto) 1.1 [place] # (Auto) 1.1 H Eos # (Auto) 0.0 Baso # (Auto) 0.1 WBC Differential . Differential Comment Auto diff final Sodium Potassium Chloride Carbon Dioxide Anion Gap BUN Creatinine Estimated GFR POC Glucose 135 H Random Glucose Calcium Phosphorus Magnesium Total Bilirubin AST ALT Alkaline Phosphatase Ammonia B-Natriuretic Peptide Total Protein Albumin TSH Free T4 Microbiology 04/28/18 17:00 Blood - Peripheral Aerobic Blood Culture - Preliminary No growth in 1 day 04/28/18 17:00 Blood - Peripheral Anaerobic Blood Culture - Preliminary No growth in 1 day 04/28/18 16:55 Blood - Peripheral Aerobic Blood Culture - Preliminary gram positive cocci 04/28/18 16:55 Blood - Peripheral Anaerobic Blood Culture - Preliminary No growth in 1 day - Imaging Impressions Head CT 04/27/18 14:11 CONCLUSION: 1. No acute intracranial abnormalities. . Chest X-Ray 04/27/18 15:20 CONCLUSION: Mild congestive heart failure. Trace pleural fluid. Chest X-Ray 04/29/18 06:00 CONCLUSION: Bibasilar airspace disease Assessment and Plan - Assessment (1) Altered mental status Code(s): R41.82 - Altered mental status, unspecified Status: Acute (2) Pulmonary edema Code(s): J81.1 - Chronic pulmonary edema Status: Acute (3) Atrial fibrillation Code(s): I48.91 - Unspecified atrial fibrillation Status: Chronic (4) Chronic back pain Code(s): M54.9 - Dorsalgia, unspecified; G89.29 - Other chronic pain Status: Acute (5) COPD (chronic obstructive pulmonary disease) Code(s): J44.9 - Chronic obstructive pulmonary disease, unspecified Status: Acute (6) Bipolar disorder Code(s): F31.9 - Bipolar disorder, unspecified Status: Acute (7) Hypotension Code(s): I95.9 - Hypotension, unspecified Status: Resolved - Plan #1 altered mental status -Remains confused -Has chronic morphine pump intrathecally -Started on antibiotics -EEG showed abnormal studies -Neurology is following Psychiatry is following Pulmonary edema -Patient is being diuresed Continue on oxygen Has been seen by pulmonary and cardiology already Lasix daily Duo nebs Atrial fibrillation chronic -Follows with Dr. Villafuerte Chronic back pain -Patient has chronic intrathecal morphine pump in place -Pain medications on hold does not appear uncomfortable today COPD -Continue on duo nebs Bipolar disorder -Has been seen by psychiatry and they continue to follow Hypotension Status post-fluids and then had pulmonary edema due to too many fluids Hypothyroidism continue on Synthroid 75 MCG's daily HYPOKALEMIA -WILL REPLACE POTASSIUM TODAY AM LABS DVT and GI prophylaxis Code Status: FULL CODE Discussed Condition With: RN AND PT AND CM Discharge Planning: PENDING CLEARANCE BY ALL ON CASE (1) Altered mental status Qualifiers: Altered mental status type: disorientation Qualified Code(s): R41.0 - Disorientation, unspecified (2) Pulmonary edema Qualifiers: Chronicity: acute Qualified Code(s): J81.0 - Acute pulmonary edema
--- NOTE | 2018-04-29 19:17 | P.PNPL ---
Subjective Interval history: 72 YOWF with Br asthma, COPD, Bipolar disorder, AMS at BS C/o SOB, looks comforable No CP Physical Exam Vital signs: Vital Signs 04/28/18 20:00 04/28/18 21:00 04/28/18 22:00 Temperature 98.5 F Pulse Rate 60 60 60 Respiratory Rate 16 Blood Pressure 108/55 L Pulse Oximetry 98 04/28/18 23:00 04/29/18 00:00 04/29/18 01:00 Temperature 98.6 F Pulse Rate 60 65 66 Respiratory Rate Blood Pressure 129/64 Pulse Oximetry 04/29/18 02:00 04/29/18 03:00 04/29/18 04:00 Temperature 98.1 F Pulse Rate 66 64 63 Respiratory Rate Blood Pressure 137/69 Pulse Oximetry 04/29/18 05:00 04/29/18 06:00 04/29/18 07:00 Temperature Pulse Rate 63 64 63 Respiratory Rate Blood Pressure Pulse Oximetry 04/29/18 08:00 04/29/18 09:00 04/29/18 09:41 Temperature 97.7 F Pulse Rate 65 61 Respiratory Rate 17 Blood Pressure 134/68 Pulse Oximetry 100 99 04/29/18 10:00 04/29/18 11:00 04/29/18 11:59 Temperature 97.7 F Pulse Rate 64 64 64 Respiratory Rate 17 Blood Pressure 127/65 Pulse Oximetry 04/29/18 12:00 04/29/18 13:00 04/29/18 15:00 Temperature Pulse Rate 70 78 74 Respiratory Rate Blood Pressure Pulse Oximetry 04/29/18 15:37 04/29/18 16:00 04/29/18 17:00 Temperature 97.4 F L Pulse Rate 72 64 78 Respiratory Rate 18 Blood Pressure 129/80 Pulse Oximetry 04/29/18 18:00 Temperature Pulse Rate 68 Respiratory Rate Blood Pressure Pulse Oximetry Intake & Output 04/29/18 04/29/18 04/30/18 06:59 18:59 06:59 Intake Total 490 / 490 580 / 580 Output Total 400 / 400 1200 / 1200 Balance 90 / 90 -620 / -620 Weight 63.8 kg Intake: IV 250 / 250 100 / 100 Azactam Inj 2 GM In NS Inj 100 100 / 100 100 / 100 ML @ 200 mls/hr IV.SIG Q8H [facility] Rx#:[id number] Levaquin 750 mg Premix Inj 150 150 / 150 ML @ 100 mls/hr IV.SIG Q24H [facility] Rx#:[id number] Oral 240 / 240 480 / 480 Output: Urine 400 / 400 Urine Amount (Catheter) 1200 / 1200 Indwelling Urethral Catheter 1200 / 1200 Other: Date of Last Bowel Movement 04/29/18 # Bowel Movements 2 # Incontinent Bowel Movements 1 2 GENERAL: Elderly Anxious female, NAD SKIN: Warm and dry. HEAD: Normocephalic. EYES: No scleral icterus. No injection or drainage. NECK: Supple, trachea midline. No JVD or lymphadenopathy. CARDIOVASCULAR: Regular rate and rhythm without murmurs, gallops, or rubs. RESPIRATORY: Breath sounds equal bilaterally. No accessory muscle use. GASTROINTESTINAL: Abdomen soft, non-tender, nondistended. MUSCULOSKELETAL: No cyanosis, or edema. BACK: Nontender without obvious deformity. No CVA tenderness. - Urinary Catheter Management Straight Cath placed during this visit: yes Reason for continuing: Hourly intake/output Insertion date: 04/27/18 Insertion time: 16:10 Indwelling Urethral Catheter Cath placed during this visit: yes Reason for continuing: Hourly intake/output Insertion date: 04/27/18 Assessment and Plan - Plan IMPRESSION: 1. Pulmonary edema is significantly better. 2. COPD/bronchial asthma. 3. Altered mental status is improving. 4. Chronic pain. 5. Congestive heart failure. 6. Bipolar disorder. PLAN: Aerosol nebs Symbicort 2 puffs bid Supplement 02 DW pt and her
[2018-04-29] MEDS ORDERED: PSYLLIUM SEED PO SCH (21:00)
[2018-04-29] MEDS: Divalproex 500 MG ER Tablet PO SCH (21:04)
[2018-04-29] MEDS: Estradiol 1 MG Tablet PO SCH (21:05)
[2018-04-29] MEDS: Famotidine 20 MG Tablet PO SCH (21:05)
[2018-04-29] MEDS: Montelukast 10 MG Tablet PO SCH (21:05)
[2018-04-29] MEDS: Acyclovir 200 MG Capsule PO SCH (21:05)
[2018-04-29] MEDS: guaiFENesin 600 MG ER Tablet PO SCH (21:05)
[2018-04-29] MEDS: Psyllium Fiber SF/GF 6 GM Packet PO SCH (21:06)
[2018-04-29] MEDS: Docusate Sodium 100 MG Capsule PO SCH (21:07)
[2018-04-30] MEDS: Aztreonam Inj 2 GM in Sodium Chloride 0.9% Inj 100 ML IV.SIG SCH ×3 (02:00→17:25)
[2018-04-30] MEDS: Levothyroxine 75 MCG Tablet PO SCH (05:49)
[2018-04-30 08:30] LABS: Baso % (Auto) 0.2 % (0.0-2.0); Hematocrit 36.6 % (35.0-46.0); Hemoglobin 12.3 gm/dL (11.6-15.3); Lymph # (Auto) 1.3 th/mm3 (1.0-4.8); Lymph % (Auto) 6.8 % (9.0-44.0); Mean Corpuscular HGB Conc 33.6 % (32.0-36.0); Mean Corpuscular Hemoglobin 33.4 pg (27.0-34.0); Mean Corpuscular Volume 99.2 fL (80.0-100.0); Mean Platelet Volume 10.2 fL (7.0-11.0); Mono # (Auto) 1.1 th/mm3 (0.0-0.9); Mono % (Auto) 5.8 % (0.0-8.0); Neut # (Auto) 16.8 th/mm3 (1.8-7.7); Neut % (Auto) 87.2 % (16.0-70.0); Platelet Count 282 th/mm3 (150-450); Red Blood Count 3.69 mil/mm3 (4.00-5.30); White Blood Count 19.3 th/mm3 (4.0-11.0)
[2018-04-30] MEDS: Montelukast 10 MG Tablet PO SCH (08:31)
[2018-04-30] MEDS: guaiFENesin 600 MG ER Tablet PO SCH ×2 (08:31→22:43)
[2018-04-30] MEDS: Acyclovir 200 MG Capsule PO SCH (08:32)
[2018-04-30] MEDS: Budesonide-Formoterol 160/4.5 MCG 6 GM Inhaler INH SCH ×2 (08:32→22:39)
[2018-04-30] MEDS: Docusate Sodium 100 MG Capsule PO SCH ×2 (08:33→22:44)
[2018-04-30] MEDS: Estradiol 1 MG Tablet PO SCH (08:33)
[2018-04-30] MEDS: Psyllium Fiber SF/GF 6 GM Packet PO SCH ×2 (08:35→22:44)
[2018-04-30] MEDS: Famotidine 20 MG Tablet PO SCH (08:36)
[2018-04-30 08:39] LABS: Alkaline Phosphatase 67 U/L (45-117); Total Protein 7.3 g/dL (6.4-8.2)
[2018-04-30] MEDS: Furosemide 40 MG Tablet PO SCH ×2 (08:44→17:28)
[2018-04-30 08:46] LABS: Alanine Aminotransferase 22 U/L (10-53); Albumin 2.7 g/dL (3.4-5.0); Anion Gap 10 meq/L (5-15); Blood Urea Nitrogen 16 mg/dL (7-18); Calcium 8.2 mg/dL (8.5-10.1); Carbon Dioxide 24.8 meq/L (21.0-32.0); Chloride 94 meq/L (98-107); Glomerular Filtration Rate 79 mL/min (>89); Glucose,Random 121 mg/dL (74-106); Magnesium 1.5 mg/dL (1.5-2.5); Phosphorus 3.6 mg/dL (2.5-4.9); Sodium 129 meq/L (136-145)
[2018-04-30 08:57] LABS: Aspartate Aminotransferase 50 U/L (15-37); Potassium 3.8 meq/L (3.5-5.1)
--- NOTE | 2018-04-30 09:42 | P.PNIM ---
Subjective Interval history: This is a 72 yo female patient with a medical history significant for bipolar disorder, COPD, heart failure, and chronic back pain on an intrathecal morphine pump. The patient and presented to ER with concern for AMS x 3 days. Patient is only able to provide a limited amount of history. Patient states that her pump had been being adjusted as an outpatient. Per ER physician who spoke with the , there is no concern or suspicion of overdose. There is no history of alcohol or drug abuse. Per ER physician ammonia was found to be elevated as an outpatient so the lithium was being weaned off. Patient was hypotensive on admission and was given several boluses of IV fluids. She later developed some pulmonary edema with some shortness of breath. She received 40 mg of IV Lasix. She was hep-locked. Patient currently reports that she feels well except for having back pain. She denies shortness of breath or chest pain. Her is not here currently, she reports that he knows names of all her medications. Per nursing report on arrival to the ER patient was noted to exhibit some tremors. Concern was for seizure. Patient is on seizure precautions. Per review of EMR, patient presented similarly in November with altered mental status and hypotension. Patient was also found to be bradycardic at that time likely to due to her high doses of antiarrhythmics. 8-5 Patient was seen and examined this morning. She could state her name and but was not oriented to place. She denied chest pain, SOB, or abdominal pain. Nurse at bedside stated that she had two formed bowel movements this morning. 8-6 REMAINS CONFUSED SEEN BY NEUROLOGY SEEN BY CARDIOLOGY SEEN BY PULMONARY SEEN BY PSYCHIATRY BEING DIURESED POTASSIUM DECREASED WILL REPLACE AM LABS PT AND OT TO EVAL AND TREAT REPLACE POTASSIUM SEE MY ORDERS HAS CHRONIC PAIN PUMP IN PLACE WITH MORPHINE INFUSING 04/30. Patient continues confused. She says she has not slept in a long time, and that due to her bipolar disorder her not sleeping has caused her confusion. She denies any chest pain or shortness of breath. Some nausea this morning without vomiting. Physical Exam Vital signs: Vital Signs 04/29/18 09:41 04/29/18 10:00 04/29/18 11:00 Temperature Pulse Rate 64 64 Respiratory Rate Blood Pressure Pulse Oximetry 99 04/29/18 11:59 04/29/18 12:00 04/29/18 13:00 Temperature 97.7 F Pulse Rate 64 70 78 Respiratory Rate 17 Blood Pressure 127/65 Pulse Oximetry 04/29/18 15:00 04/29/18 15:37 04/29/18 16:00 Temperature 97.4 F L Pulse Rate 74 72 64 Respiratory Rate 18 Blood Pressure 129/80 Pulse Oximetry 04/29/18 17:00 04/29/18 18:00 04/29/18 19:00 Temperature Pulse Rate 78 68 90 Respiratory Rate Blood Pressure Pulse Oximetry 04/29/18 20:00 04/29/18 21:00 04/29/18 21:36 Temperature 98.8 F Pulse Rate 86 80 76 Respiratory Rate 16 17 Blood Pressure 120/65 Pulse Oximetry 100 100 04/29/18 22:00 04/29/18 23:00 04/30/18 00:00 Temperature 98.6 F Pulse Rate 66 83 76 Respiratory Rate 18 Blood Pressure 130/75 Pulse Oximetry 100 04/30/18 01:00 04/30/18 02:00 04/30/18 03:00 Temperature Pulse Rate 66 78 73 Respiratory Rate Blood Pressure Pulse Oximetry 04/30/18 04:00 04/30/18 05:00 04/30/18 06:00 Temperature 98.8 F Pulse Rate 78 66 74 Respiratory Rate 18 Blood Pressure 138/70 Pulse Oximetry 99 04/30/18 07:00 04/30/18 07:45 04/30/18 09:28 Temperature 97.9 F Pulse Rate 69 69 Respiratory Rate 18 Blood Pressure 138/76 Pulse Oximetry 100 93 L Intake & Output 04/29/18 04/30/18 04/30/18 18:59 06:59 18:59 Intake Total 580 / 580 950 / 950 Output Total 1200 / 1200 625 / 625 Balance -620 / -620 325 / 325 Weight 63.7 kg Intake: IV 100 / 100 350 / 350 Azactam Inj 2 GM In NS Inj 100 100 / 100 200 / 200 ML @ 200 mls/hr IV.SIG Q8H [facility] Rx#:[id number] Levaquin 750 mg Premix Inj 150 150 / 150 ML @ 100 mls/hr IV.SIG Q24H [facility] Rx#:[id number] Oral 480 / 480 600 / 600 Output: Urine Amount (Catheter) 1200 / 1200 625 / 625 Indwelling Urethral Catheter 1200 / 1200 625 / 625 Other: Date of Last Bowel Movement 04/29/18 04/30/18 04/30/18 # Bowel Movements 2 1 # Incontinent Bowel Movements 2 Narrative: GENERAL: Patient sitting up in bed. Appears confused. Disoriented. SKIN: Warm and dry. HEAD: Normocephalic. EYES: No scleral icterus. No injection or drainage. NECK: Supple, trachea midline. No JVD. CARDIOVASCULAR: Regular rate and rhythm without murmurs, gallops, or rubs. RESPIRATORY: Breath sounds equal bilaterally. No accessory muscle use. GASTROINTESTINAL: Abdomen soft, non-tender, nondistended. MUSCULOSKELETAL: No cyanosis. Trace peripheral edema. BACK: Nontender without obvious deformity. No CVA tenderness. - Urinary Catheter Management Straight Cath placed during this visit: yes Reason for continuing: Hourly intake/output Insertion date: 04/27/18 Insertion time: 16:10 Indwelling Urethral Catheter Cath placed during this visit: yes Reason for continuing: Hourly intake/output Insertion date: 04/27/18 Results - Labs CBC & Chem 7: 04/30/18 06:57 04/30/18 06:57 Laboratory Results - last 24 hr 04/29/18 04/29/18 04/30/18 06:22 11:01 06:57 WBC 19.3 H RBC 3.69 L Hgb 12.3 Hct 36.6 MCV 99.2 MCH 33.4 MCHC 33.6 RDW 13.0 Plt Count 282 MPV 10.2 Neut % (Auto) 87.2 H Lymph % (Auto) 6.8 L [place] % (Auto) 5.8 Eos % (Auto) 0.0 Baso % (Auto) 0.2 Neut # (Auto) 16.8 H Lymph # (Auto) 1.3 [place] # (Auto) 1.1 H Eos # (Auto) 0.0 Baso # (Auto) 0.0 WBC Differential . Differential Comment Auto diff final Sodium Potassium Chloride Carbon Dioxide Anion Gap BUN Creatinine Estimated GFR POC Glucose 135 H Random Glucose Hemoglobin A1c 4.8 Calcium Phosphorus Magnesium Total Bilirubin AST ALT Alkaline Phosphatase Total Protein Albumin 04/30/18 06:57 WBC RBC Hgb Hct MCV MCH MCHC RDW Plt Count MPV Neut % (Auto) Lymph % (Auto) [place] % (Auto) Eos % (Auto) Baso % (Auto) Neut # (Auto) Lymph # (Auto) [place] # (Auto) Eos # (Auto) Baso # (Auto) WBC Differential Differential Comment Sodium 129 L Potassium 3.8 D Chloride 94 L Carbon Dioxide 24.8 Anion Gap 10 BUN 16 Creatinine 0.73 Estimated GFR 79 L POC Glucose Random Glucose 121 H Hemoglobin A1c Calcium 8.2 L Phosphorus 3.6 Magnesium 1.5 Total Bilirubin 0.6 AST 50 H ALT 22 Alkaline Phosphatase 67 Total Protein 7.3 D Albumin 2.7 L Microbiology 04/28/18 17:00 Blood - Peripheral Aerobic Blood Culture - Preliminary No growth in 1 day 04/28/18 17:00 Blood - Peripheral Anaerobic Blood Culture - Preliminary No growth in 1 day 04/28/18 16:55 Blood - Peripheral Aerobic Blood Culture - Preliminary gram positive cocci 04/28/18 16:55 Blood - Peripheral Anaerobic Blood Culture - Preliminary No growth in 1 day Assessment and Plan - Assessment (1) Altered mental status Code(s): R41.82 - Altered mental status, unspecified Status: Acute (2) Pulmonary edema Code(s): J81.1 - Chronic pulmonary edema Status: Acute (3) Atrial fibrillation Code(s): I48.91 - Unspecified atrial fibrillation Status: Chronic (4) Chronic back pain Code(s): M54.9 - Dorsalgia, unspecified; G89.29 - Other chronic pain Status: Acute (5) COPD (chronic obstructive pulmonary disease) Code(s): J44.9 - Chronic obstructive pulmonary disease, unspecified Status: Acute (6) Bipolar disorder Code(s): F31.9 - Bipolar disorder, unspecified Status: Acute (7) Hypotension Code(s): I95.9 - Hypotension, unspecified Status: Resolved - Plan //altered mental status -Remains confused -Has chronic morphine pump intrathecally -Started on antibiotics -EEG showed encephalopathy -Neurology is following Psychiatry is following = 04/30. There is encephalopathy on EEG, however no epileptic activity. Ammonia is within normal limits. No obvious cause for her confusion other than bipolar. I have contacted psychiatry who will see the patient. //Pulmonary edema -Patient is being diuresed Continue on oxygen Has been seen by pulmonary and cardiology already Lasix daily Duo nebs = 04/30. Discussed with owner consulting engineer. Awaiting repeat echocardiogram. Continue diuresis. //Atrial fibrillation chronic -Follows with Dr. Villafuerte //Chronic back pain -Patient has chronic intrathecal morphine pump in place -Pain medications on hold does not appear uncomfortable today //COPD -Continue on duo nebs //Bipolar disorder -Has been seen by psychiatry and they continue to follow //Hypotension Status post-fluids and then had pulmonary edema due to too many fluids //Hypothyroidism continue on Synthroid 75 MCG's daily //HYPOKALEMIA -WILL REPLACE POTASSIUM TODAY AM LABS DVT and GI prophylaxis Discharge Planning: Pending clearance by cardiology, psychiatry, neurology,pulm (1) Altered mental status Qualifiers: Altered mental status type: disorientation Qualified Code(s): R41.0 - Disorientation, unspecified (2) Pulmonary edema Qualifiers: Chronicity: acute Qualified Code(s): J81.0 - Acute pulmonary edema
[2018-04-30 11:35] LABS: CKMB Percent 2.9 % (0.0-4.0); Creatine Kinase MB 12.5 ng/mL (0.5-3.6)
--- NOTE | 2018-04-30 11:58 | CT ---
EXAM DATE: 04/30/2018 11:49 AM EDT AGE/SEX: 72 years / Female INDICATIONS: Stroke alert. Right facial droop. Bilateral upper extremity weakness. Altered mental st atus. Confusion. CLINICAL DATA: This is the patient's initial encounter. Patient reports that signs and symptoms have been present for 1 day and indicates a pain score of 0/10. MEDICAL/SURGICAL HISTORY: Chronic obstructive pulmonary disease. Cardiovascular disease. Asthma. None. RADIATION DOSE: 56.37 CTDI (mGy) COMPARISON: [facility] – [place], [place] HEAD W/O CONTRAST, 04/27/2018. . TECHNIQUE: CT of the head without contrast. Using automated exposure control and adjustment of the mA and/or kV according to patient size, radiation dose was kept as low as reasonably achievable to ob tain optimal diagnostic quality images. DICOM format image data is available electronically for revi ew and comparison. FINDINGS: Cerebrum: The ventricles are normal for age. No evidence of midline shift, mass lesion, hemorrhage or acute infarction. No extraaxial fluid collections are seen. Posterior Fossa: The cerebellum and brainstem are intact. The 4th ventricle is midline. The cerebe llopontine angle is unremarkable. Extracranial: The visualized portion of the orbits is intact. Skull: The calvaria is intact. No evidence of skull fracture. CONCLUSION: 1. No acute intracranial abnormalities. Report was called by [ Dr. Joseph to Dr. Mccarty at 11:57 AM] Electronically signed by: German Joseph MD 04/30/2018 11:57 AM EDT
--- NOTE | 2018-04-30 12:16 | CT ---
EXAM DATE: 04/30/2018 12:08 PM EDT AGE/SEX: 72 years / Female INDICATIONS: Stroke alert. Right facial droop. Bilateral upper extremity. Altered mental status. Con fusion. CLINICAL DATA: This is the patient's initial encounter. Patient reports that signs and symptoms have been present for 1 day and indicates a pain score of 0/10. MEDICAL/SURGICAL HISTORY: Chronic obstructive pulmonary disease. Asthma. Cardiovascular disease. None. RADIATION DOSE: 9.89 CTDI (mGy) COMPARISON: No prior exams available for comparison. TECHNIQUE: Volumetric scanning was performed using a multi-row detector CT scanner during bolus infu jimbo of 70 ml Visipaque 320 (iodixanol) nonionic water-soluble contrast as a cumulative dose for mul tiple exams. The data was post processed with a variety of visualization algorithms including full volume maximum intensity projection, multi-planar sliding thin slab reformation, curved planar reform ation, and surface rendering techniques. Using automated exposure control and adjustment of the mA a nd/or kV according to patient size, radiation dose was kept as low as reasonably achievable to obtain optimal diagnostic quality images. DICOM format image data is available electronically for review a nd comparison. FINDINGS: There is excellent visualization of the major intracranial arteries out to the second-order branch ve ssels. There is no evidence for aneurysm, vessel truncation or stenosis, and no evidence for vascula r malformation. CONCLUSION: 1. No evidence of intraluminal filling defects or steno-occlusive disease. 2. Unremarkable anterior and posterior intracranial circulation 3. No evidence of extracranial carotid or vertebral steno-occlusive disease. Electronically signed by: Bo Marmolejo MD 04/30/2018 12:14 PM EDT
[2018-04-30 12:52] LABS: Baso % (Auto) 0.1 % (0.0-2.0); Eos % (Auto) 0.1 % (0.0-4.0); Hematocrit 39.5 % (35.0-46.0); Hemoglobin 13.1 gm/dL (11.6-15.3); Lymph # (Auto) 0.8 th/mm3 (1.0-4.8); Lymph % (Auto) 4.2 % (9.0-44.0); Mean Corpuscular HGB Conc 33.1 % (32.0-36.0); Mean Corpuscular Hemoglobin 33.5 pg (27.0-34.0); Mean Corpuscular Volume 101.1 fL (80.0-100.0); Mean Platelet Volume 9.1 fL (7.0-11.0); Mono # (Auto) 0.7 th/mm3 (0.0-0.9); Mono % (Auto) 3.3 % (0.0-8.0); Neut # (Auto) 18.8 th/mm3 (1.8-7.7); Neut % (Auto) 92.3 % (16.0-70.0); Platelet Count 291 th/mm3 (150-450); Red Blood Count 3.91 mil/mm3 (4.00-5.30); Red Cell Distribution Width 13.1 % (11.6-17.2); White Blood Count 20.3 th/mm3 (4.0-11.0)
[2018-04-30 13:10] LABS: Activated Partial Thrombo Time 26.7 sec (24.3-30.1); INR 1.1 Ratio; Prothrombin Time 11.5 sec (9.8-11.6)
[2018-04-30 13:13] LABS: Troponin I 0.25 ng/mL (0.02-0.05)
--- NOTE | 2018-04-30 13:15 | CT ---
EXAM DATE: 04/30/2018 12:59 PM EDT AGE/SEX: 72 years / Female INDICATIONS: Stroke alert. Right facial droop. Bilateral upper extremity. Altered mental status. Con fusion. CLINICAL DATA: This is the patient's initial encounter. Patient reports that signs and symptoms have been present for 1 day and indicates a pain score of 0/10. MEDICAL/SURGICAL HISTORY: Chronic obstructive pulmonary disease. Cardiovascular disease. Asthma. None. RADIATION DOSE: 9.89 CTDI (mGy) ; Combined studies COMPARISON: [facility], CT CERVICAL SPINE W/O CONTRAST, 11/06/2015. . TECHNIQUE: Volumetric scanning was performed using a multirow detector CT scanner during bolus infus ion of 70 ml Visipaque 320 (iodixanol) nonionic water-soluble contrast as a cumulative dose for mult iple exams. The data was postprocessed with a variety of visualization algorithms including full-vo lume maximum intensity projection, multiplanar sliding thin-slab reformation, curved-planar reformati on, and surface-rendering techniques. Using automated exposure control and adjustment of the mA and/ or kV according to patient size, radiation dose was kept as low as reasonably achievable to obtain op timal diagnostic quality images. DICOM format image data is available electronically for review and comparison. FINDINGS: Aortic Arch: There is a three-vessel origin of the great vessels from the aorta. No evidence of ost ial narrowing Right Carotid: The common carotid artery is intact. The carotid bulb has a normal configuration wit hout ulceration or narrowing. The internal carotid artery lumen is smooth without stenosis. The ext ernal carotid artery is intact. Left Carotid: The common carotid artery is intact. The carotid bulb has a normal configuration with out ulceration or narrowing. The internal carotid artery lumen is smooth without stenosis. The exte rnal carotid artery is intact. Vertebrals: The vertebral arteries have a symmetric diameter. No stenotic lesions are seen. Bilateral patchy upper lobe densities Percent stenosis is calculated using the diameter of the stenotic region over the diameter of the nor mal distal internal carotid artery. CONCLUSION: 1. No carotid stenosis. 2. Bilateral upper lobe patchy lung densities. Electronically signed by: Wilmer Jiménez MD 04/30/2018 1:14 PM EDT
--- NOTE | 2018-04-30 14:15 | XR ---
EXAM DATE: 04/30/2018 1:56 PM EDT AGE/SEX: 72 years / Female INDICATIONS: Vomiting, possible aspiration per nurse. CLINICAL DATA: This is the patient's subsequent encounter. Patient reports that signs and symptoms h ave been present for 1 day and indicates a pain score of Nonresponsive. MEDICAL/SURGICAL HISTORY: . Chronic obstructive pulmonary disease. Asthma. Cardiovascular dise ase. None. COMPARISON: C, CHEST 2V PA&LAT, 04/29/2018. . FINDINGS: Heart size enlarged. Bilateral mostly basilar airspace disease and perihilar airspace disease. Findin g is new since April 29. No significant effusion. No pneumothorax. Cardiomegaly. CONCLUSION: Cardiomegaly with bilateral mostly basilar and perihilar airspace disease. Differential diagnosis inc ludes aspiration and pneumonia as well as some pulmonary edema. Electronically signed by: German Joseph MD 04/30/2018 2:14 PM EDT
--- NOTE | 2018-04-30 14:34 | MB ---
cc: Jose Mccarty MD, PhD DATE: 04/30/2018 REASON FOR CONSULTATION: Stroke alert. HISTORY OF PRESENT ILLNESS: Ms. Duque is a 72-year-old female who is admitted with mental status changes and dehydration. She also has bipolar disorder. She takes Depakote. Her serum ammonia level recently has been elevated, so she was on a tapering dose of Depakote and lithium was added. She was admitted with mental status changes, evaluated by Dr. Pickens of the neurology service who felt that she may be having symptoms of encephalopathy, possibly from medications. An EEG was ordered. She was stable until this morning. She had sudden decreased mental status and also noted to have a right facial droop. She also is weak in both arms, had difficulty raising her arms; therefore, a stroke alert was called. She was taken to the CT scanner. In the interim, she had resolution of her symptoms, becoming much more alert, communicative. The facial droop resolved and she was moving both upper extremities well. There was no tonic-clonic activity, but she had stiffening. There was a concern that she might have had some seizure activity. Her reports similar episodes since last since her Depakote dose has been tapered with what she calls "seizure activity" where she suddenly stares into space and stiffens up, but there is no tonic-clonic activity. She has never had seizures before. PAST MEDICAL HISTORY: Remarkable for bipolar disorder, COPD, congestive heart failure, possible atrial fibrillation. CURRENT MEDICATIONS: 1. Zovirax 2. Tylenol. 3. DuoNeb. 4. Ecotrin 81 mg daily. 5. Aztreonam 6. Dulcolax. 7. Symbicort. 8. Depakote ER 500 mg at bedtime. 9. Colace 100 mg b.i.d. 10. Estradiol 2 mg daily. 11. Pepcid 10 mg b.i.d. 12. Lasix. 13. Mucinex. 14. Atrovent. 15. Levaquin IV. 16. Synthroid. 17. Flagyl. 18. Singulair. 19. Theragran. 20. Cyclosporine ophthalmic. 21. Lactobacillus. 22. K-Dur. NEUROLOGICAL EXAMINATION: VITAL SIGNS: Her blood pressure is 130/76, temperature of 97.9 degrees, pulse is 69. HIGHER CORTICAL FUNCTION: Lethargic but alert. She is currently in some degree of respiratory distress. CRANIAL NERVES: There is no facial droop. MOTOR EXAM: She moves all 4 extremities equally. IMAGING STUDIES: CT brain shows no acute change. CT angiogram of the brain is unremarkable. No evidence of any large vessel occlusion. CTA of the neck was also obtained and is likewise normal with no evidence of any significant carotid artery stenosis. LABORATORY DATA: The white count is 20,300; hemoglobin 13.1; hematocrit is 39.5%; platelet count is 291,000. PT 11.5, INR 1.18, PTT of 26.7. Sodium 128, potassium 3.1, creatinine 8.6, glucose 121. CPK 394. [place] level is 0.6. Valproic acid level is 38. IMPRESSION: Sudden change in mental status. The episode may have been a seizure with a postictal state. Transient ischemic attack also is a possibility. No evidence of any stroke at the present time. The symptoms have resolved. The patient therefore is not a candidate for TPA. No evidence for large vessel occlusion to warrant intervention. RECOMMENDATIONS: The relates that she has been having these episodes since the Depakote was lowered because of the high ammonia. Therefore, it is possible that they might represent seizure activity. We will recommend starting the patient on Keppra for possible seizures. Even though the Depakote is subtherapeutic, would not raise the dose because of the hyperammonemia. We will obtain an MRI of the brain, as well as an EEG. Also, check a serum ammonia level. Her serum sodium is low as well at 128, which could be a factor in causing an encephalopathy or possibly seizures from hyponatremia. Jose Mccarty MD, PhD GARETH/NAYELI , 01:57 PM , 02:09 PM
[2018-04-30] MEDS ORDERED: MethylPREDNISolone Sod Succinate Inj 125 MG/2 ML Vial IV.PUSH STA (14:36)
--- NOTE | 2018-04-30 15:14 | P.CONCC ---
History of Present Illness Service: critical care Consult date: 04/30/18 Requesting Physician: Carlos Todd Reason for Consult: ASPIRATION, ACUTE RESP FAILURE Primary Care Provider: UNKNOWN Chief Complaint: Altered mental status History of Present Illness: This is a 72 yo female patient with a medical history significant for bipolar disorder, COPD, heart failure, and chronic back pain on an intrathecal morphine pump. The patient and presented to ER on 04/27 with concern for AMS x 3 days. Patient is only able to provide a limited amount of history. Patient states that her pump had been being adjusted as an outpatient. Per ER physician who spoke with the , there is no concern or suspicion of overdose. There is no history of alcohol or drug abuse. Per ER documentation ammonia was found to be elevated as an outpatient so the lithium was being weaned off. Patient was hypotensive on admission and was given several boluses of IV fluids. She later developed some pulmonary edema with some shortness of breath. She received 40 mg of IV Lasix. She was hep-locked. Per nursing report on arrival to the ER patient was noted to exhibit some tremors. Concern was for seizure. Per review of EMR, patient presented similarly in November with altered mental status and hypotension. Patient was also found to be bradycardic at that time likely to due to her high doses of antiarrhythmics. On 04/30 around 11 AM patient developed altered mental status and stroke alert was called. Patient was evaluated by Dr. Mccarty. Head CT was negative for bleed. She was transferred back to [facility] but she was flagged when she had nausea vomiting and had an episode of aspiration following which she was hypoxic with O2 sats now in the 70s. Patient was placed on a nonrebreather facemask, a rapid response was called and she was transferred to ICU. Dr. Todd contacted me and requested critical care consult for aspiration and acute respiratory failure with concern that patient may need intubation. I evaluated the patient immediately on being notified following her arrival to the CVICU. At that time she was on a nonrebreather facemask maintaining O2 sats in the mid 90s slightly tachypneic. She was much more awake per nursing staff at the time of my evaluation and appeared to be improving neurologically. Patient could give me her name and knew she was at [facility] and knew it was 2017. She was still confused and disoriented which was close to her baseline mental status prior to her deterioration this morning. Patient has had a leukocytosis and has been on empiric antibiotic coverage including IV Levaquin/Azactam and Flagyl IV was added following epidural aspiration today by Dr. Todd. History was obtained by reviewing records, discussion with Dr. Todd as well as nursing staff at bedside. Review of Systems unobtainable due to mental condition PMFSH - History History Provided By: Patient, Family Member - Medical History Medical History: Medical History (Last Reviewed 04/29/18 @ 13:20 by Loren Benton) Asthma Atrial fibrillation Atrial fibrillation Back pain COPD (chronic obstructive pulmonary disease) Spinal cord stimulator status - Surgical History Surgical History: Surgical History (Last Reviewed 04/29/18 @ 13:20 by Loren Benton) Hx of tonsillectomy - Tobacco History Second Hand Smoke Exposure: No Smoking Status: Never smoker - Alcohol History How Often Do You Have a Drink Containing Alcohol: Never - Substance Use History Substance History: No History of Abuse - Travel History Recent Travel in the [facility] Within the Last 8 Weeks: No Recent Travel Out of the Country Within the Last 8 Weeks: No - Immunization History Tetanus Immunization: Unsure Hx Influenza Vaccine This Season: Yes Medications and Allergies Active Medications: Active Medications Acetaminophen (Tylenol) 650 mg PO Q4H PRN PRN Reason: FEVER/HEADACHE Last Admin: 04/29/18 01:20 Dose: 650 mg Acyclovir (Zovirax) 400 mg PO DAILY [facility] Last Admin: 04/30/18 08:32 Dose: 400 mg Albuterol (Duoneb Neb (Narda)) 1 ampul NEB Q6HR WHILE AWAKE NEB [facility] Last Admin: 04/30/18 09:28 Dose: Not Given Albuterol (Duoneb Neb (Prn)) 1 ampul NEB Q2HR NEB PRN PRN Reason: SHORTNESS OF BREATH/WHEEZING Aspirin (Ecotrin) 81 mg PO DAILY [facility] Last Admin: 04/30/18 08:32 Dose: 81 mg Bisacodyl (Dulcolax Supp) 10 mg RECTAL DAILY PRN PRN Reason: SEVERE CONSITIPATION Budesonide/Formoterol Fumarate (Symbicort 160/4.5 Mcg Inh) 2 puff INH BID [facility] Last Admin: 04/30/18 08:32 Dose: 2 puff Divalproex Sodium (Depakote Er) 500 mg PO HS [facility] Last Admin: 04/29/18 21:04 Dose: 500 mg Docusate Sodium (Colace) 100 mg PO BID [facility] Last Admin: 04/30/18 08:33 Dose: 100 mg Estradiol (Estrace) 2 mg PO DAILY [facility] Last Admin: 04/30/18 08:33 Dose: 2 mg Famotidine (Pepcid) 10 mg PO BID [facility] Last Admin: 04/30/18 08:36 Dose: 10 mg Furosemide (Lasix) 40 mg PO BID@0900,1800 [facility] Last Admin: 04/30/18 08:44 Dose: 40 mg Guaifenesin (Mucinex Er) 600 mg PO BID [facility] Last Admin: 04/30/18 08:31 Dose: 600 mg Levofloxacin/Dextrose (Levaquin 750 Mg Premix Inj) 150 mls @ 100 mls/hr IV.SIG Q24H [facility] Last Infusion: 04/30/18 00:25 Dose: Infused Aztreonam 2 gm/ Sodium (Chloride) 100 mls @ 200 mls/hr IV.SIG Q8H [facility] Last Admin: 04/30/18 13:12 Dose: Not Given Metronidazole/Sodium Chloride (Flagyl 500 Mg Inj) 100 mls @ 100 mls/hr IV.SIG Q8H [facility] Levetiracetam (Keppra 500 Mg/100 Ml Premix) 100 mls @ 400 mls/hr IV.SIG Q12H [facility] Ipratropium [place]son (Atrovent Neb) 0.5 mg INH Q6HR NEB PRN PRN Reason: Shortness Of Breath Levothyroxine Sodium (Synthroid) 75 mcg PO DAILY@0600 [facility] Last Admin: 04/30/18 05:49 Dose: 75 mcg Methylprednisolone Sodium Succinate (Solumedrol Inj) 60 mg IV.PUSH Q12HR [facility] Montelukast Sodium (Singulair) 10 mg PO DAILY [facility] Last Admin: 04/30/18 08:31 Dose: 10 mg Multivitamins (Theragran) 1 tab PO DAILY [facility] Last Admin: 04/30/18 08:31 Dose: 1 tab Ondansetron HCl (Zofran Inj) 4 mg IV.PUSH Q6H [facility] Stop: 05/01/18 10:00 Pt:Cyclosporine Opth (Elenita) 0 each EACH EYE Q12H [facility] Last Admin: 04/30/18 00:24 Dose: Not Given Pt:Lactobacillus (Combo #4) 0 each PO DAILY [facility] Last Admin: 04/30/18 00:25 Dose: Not Given Potassium Chloride (K-Dur) 20 meq PO DAILY [facility] Last Admin: 04/30/18 08:32 Dose: 20 meq Psyllium Hydrophilic Mucilloid (Metamucil Smooth Texture Sf/Gf Pkt) 0 packet PO BID [facility] Last Admin: 04/30/18 08:35 Dose: 1 packet Sennosides (Senokot) 17.2 mg PO Q12H PRN PRN Reason: Moderate Constipation Sodium Chloride (Ns Flush) 2 ml IV.FLUSH PRN PRN PRN Reason: FLUSH AFTER USING IV ACCESS Last Admin: 04/27/18 21:37 Dose: 2 ml Allergies Allergy/AdvReac Type Severity Reaction Status Date / Time penicillin G Allergy Severe hives Verified 04/27/18 14:10 Sulfa (Sulfonamide Allergy Severe hives Verified 04/27/18 14:10 Antibiotics) latex Allergy Intermediate rash Verified 04/27/18 14:10 piroxicam Allergy Unknown Hives Verified 04/27/18 14:10 cyclobenzaprine AdvReac Intermediate PAU Verified 04/27/18 14:10 hydroxyzine AdvReac Unknown Hives Verified 04/27/18 14:10 Home Medications Medication Instructions Recorded Confirmed Type acyclovir 400 mg PO DAILY 04/27/18 04/27/18 History aspirin 81 mg PO DAILY 04/27/18 04/27/18 History budesonide-formoterol [Symbicort] 2 puff INHALATION 04/27/18 04/27/18 History clonazepam [Klonopin] 0.5 mg PO TID 04/27/18 04/27/18 History cyclosporine [Restasis] 1 drp EACH EYE Q12H 04/27/18 04/27/18 History diltiazem HCl 180 mg PO DAILY 04/27/18 04/27/18 History divalproex [Depakote] 500 mg PO HS 04/27/18 04/27/18 History docusate sodium [Colace] 100 mg PO BID 04/27/18 04/27/18 History estradiol 2 mg PO DAILY 04/27/18 04/27/18 History gabapentin 300 mg PO BID 04/27/18 04/27/18 History ipratropium bromide [Atrovent HFA] 1 puff INHALATION Q6H PRN 04/27/18 04/27/18 History lactobacillus combination no.4 1 cap PO DAILY 04/27/18 04/27/18 History [Probiotic] levothyroxine 75 mcg PO DAILY 04/27/18 04/27/18 History loratadine [Claritin] 10 mg PO DAILY PRN 04/27/18 04/27/18 History montelukast [Singulair] 10 mg PO DAILY 04/27/18 04/27/18 History multivitamin 1 tab PO DAILY 04/27/18 04/27/18 History nadolol 20 mg PO DAILY 04/27/18 04/27/18 History naloxegol [Movantik] 25 mg PO HS 04/27/18 04/27/18 History polyethylene glycol 3350 [Miralax] 17 g PO DAILY PRN 04/27/18 04/27/18 History potassium chloride 20 meq PO DAILY 04/27/18 04/27/18 History psyllium seed (sugar) [Metamucil 1 tsp PO BID 04/27/18 04/27/18 History (sugar)] quetiapine [Seroquel] 100 mg PO HS 04/27/18 04/27/18 History trazodone 200 mg PO HS 04/27/18 04/27/18 History venlafaxine [Effexor XR] 150 mg PO DAILY 04/27/18 04/27/18 History vit C,J-Wg-hxdcc-lutein-zeaxan 1 tab PO BID 04/27/18 04/27/18 History [PreserVision AREDS 2] Physical Exam Vital signs: Vital Signs 04/29/18 15:00 04/29/18 15:37 04/29/18 16:00 Temperature 97.4 F L Pulse Rate 74 72 64 Respiratory Rate 18 Blood Pressure 129/80 Pulse Oximetry 04/29/18 17:00 04/29/18 18:00 04/29/18 19:00 Temperature Pulse Rate 78 68 90 Respiratory Rate Blood Pressure Pulse Oximetry 04/29/18 20:00 04/29/18 21:00 04/29/18 21:36 Temperature 98.8 F Pulse Rate 86 80 76 Respiratory Rate 16 17 Blood Pressure 120/65 Pulse Oximetry 100 100 04/29/18 22:00 04/29/18 23:00 04/30/18 00:00 Temperature 98.6 F Pulse Rate 66 83 76 Respiratory Rate 18 Blood Pressure 130/75 Pulse Oximetry 100 04/30/18 01:00 04/30/18 02:00 04/30/18 03:00 Temperature Pulse Rate 66 78 73 Respiratory Rate Blood Pressure Pulse Oximetry 04/30/18 04:00 04/30/18 05:00 04/30/18 06:00 Temperature 98.8 F Pulse Rate 78 66 74 Respiratory Rate 18 Blood Pressure 138/70 Pulse Oximetry 99 04/30/18 07:00 04/30/18 07:45 04/30/18 09:28 Temperature 97.9 F Pulse Rate 69 69 Respiratory Rate 18 Blood Pressure 138/76 Pulse Oximetry 100 93 L Intake & Output 04/29/18 04/30/18 04/30/18 18:59 06:59 18:59 Intake Total 580 / 580 950 / 950 Output Total 1200 / 1200 625 / 625 Balance -620 / -620 325 / 325 Weight 63.7 kg Intake: IV 100 / 100 350 / 350 Azactam Inj 2 GM In NS Inj 100 100 / 100 200 / 200 ML @ 200 mls/hr IV.SIG Q8H [facility] Rx#:[id number] Levaquin 750 mg Premix Inj 150 150 / 150 ML @ 100 mls/hr IV.SIG Q24H NARDA Rx#:[id number] Oral 480 / 480 600 / 600 Output: Urine Amount (Catheter) 1200 / 1200 625 / 625 Indwelling Urethral Catheter 1200 / 1200 625 / 625 Other: Date of Last Bowel Movement 04/29/18 04/30/18 04/30/18 # Bowel Movements 2 1 # Incontinent Bowel Movements 2 Narrative: HEENT/Neuro: No pallor or icterus, tongue moist, ALONSO, Awake alert oriented 2 , no she is at [facility] knows it is 2018 however otherwise confused and could not give me her name. Nonfocal grossly, moving all 4 extremities Neck: No JVD Chest/pulmonary: Good air entry bilaterally though decreased at bases. Bilateral rhonchi and basilar crackles, no wheezing Cardiovascular: S1-S2 regular no gallop or murmur GI/abdomen: Soft, nontender, bowel sounds present Extremities: Warm bilaterally, no edema - Urinary Catheter Management Straight Cath placed during this visit: yes Reason for continuing: Hourly intake/output Insertion date: 04/27/18 Insertion time: 16:10 Indwelling Urethral Catheter Cath placed during this visit: yes Reason for continuing: Hourly intake/output Insertion date: 04/27/18 Assessment and Plan - Assessment and Plan Plan: 72-year-old female with: Encephalopathy Aspiration Acute respiratory failure COPD with possible exacerbation following aspiration CHF Bipolar disorder Plan: Neuro: Continue valproate/Keppra IV. Neurology and psychiatry following. Psych meds to be clarified per discussion with Dr. Jacobs. Head CT, CTA brain and neck unremarkable. Awaiting MRI brain. Cardiovascular: Continue diuresis. Pulmonary: On partial rebreather facemask O2 currently and maintaining O2 sats. If respiratory status declines with dropping O2 sats or increasing work of breathing, may require endotracheal intubation. Continue bronchodilators, inhaled steroid, singulair. Will add Solu-Medrol 125 mg IV stat and then 60 mg IV every 12 hourly to cover for COPD exacerbation in view of aspiration. Pulmonary following. GI/liver: Zofran 4 mg's IV every 6 hourly 4 doses. If patient continues to have nausea vomiting may require NG tube placement. Check amylase lipase. Switch from Pepcid to Protonix IV. Patient has been having bowel movements. N.p.o. for now. Advance p.o. diet starting tomorrow if nausea under control. Renal/: Strict intake output, monitor and replete electrolyte, follow BUN/ creatinine. Being diuresed. ID: On IV Levaquin/Flagyl/Azactam. Will consider stopping Azactam in a.m. On p.o. acyclovir. Follow white count. Endocrine: Watch for hyperglycemia, SSI for glycemic control if needed. Prophylaxis: Protonix/SCDs/Lovenox Condition critical. If respiratory status declines, may require endotracheal intubation. Critical care will continue to follow Time spent on critical care excluding procedures 45 minutes.
--- NOTE | 2018-04-30 15:31 | P.PNPSY ---
Subjective Remarks: Patient seen for follow up; chart reviewed. Patient recently transferred to CVICU for further medical management, found lying on hospital bed, with and brother at bedside. Patient noted to be alert,appearing confused but able to interact and engage in interview. Patient reports that she is having disturbing visions at night, although unclear if patient endorsing visual hallucinations or rather remembering this upon awakening which she nodded yes to. Patient not noted to be endorsing any manic or psychotic symptoms at this time, current presentation likely delirium secondary to ongoing medical issues. Collateral from patient's confirmed patient's medications as stated in prior evaluation. He states that patient had been recently on depakote up to 1250mg daily and within therapeutic limits at that time. Review of Systems All other systems reviewed negative except as stated in HPI Mental Status Examination Appearance: Other (In hospital gown) Consciousness: Lethargic (slightly) Orientation: Person, Place Speech: Slow (slightly) Language: Adequate Fund of Knowledge: Inadequate Attention and Concentration: Other (fair) Memory: Impaired Mood: Other ("fine") Affect: Other (restricted) Thought Process & Associations: Intact, Linear Thought Content: Appropriate Hallucination Type: None Delusion Type: None Suicidal Ideation: No Suicidal Plan: No Suicidal Intention: No Homicidal Ideation: No Homicidal Plan: No Homicidal Intention: No Insight: Fair Judgment: Impulsive Assessment and Plan - Assessment (1) Bipolar disorder Code(s): F31.9 - Bipolar disorder, unspecified Status: Acute - Plan Plan: Patient this time not presenting with any acute manic or psychotic symptoms, was reported to have confusion earlier today likely secondary to delirium from ongoing medical issues. Patient was able to engage concretely with interview today. Patient this time may continue with current dose of Depakote which can be titrated after medical stabilization on an outpatient basis as patient not currently endorsing any acute psychiatric symptoms related to her bipolar disorder. As there have been previous concern for hyperammonemia, despite patient currently having ammonia levels within normal limits, continue current depakote dose, would recommend continued titration after medical stabilization which can be achieved on an outpatient basis patient currently not endorsing any manic symptoms. Attempts have been made to reach out to patient's outpatient psychiatrist Dr. Scott Ponce and provided callback number for further collateral formation. Recommend patient to reconnect with outpatient psychiatrist upon discharge. Patient to continue recommendations as her prior medical team. If there is any acute changes concerning for psychiatric decompensation during admission, please reconsult but at this time no evidence of psychiatric decompensation. We will sign off. Consult appreciated. Justification for Continued Inpatient Stay: At risk of further decompensation a lower level care.
--- NOTE | 2018-04-30 15:53 | ECHRPT ---
Indication: SHORTNESS OF BREATH CONCLUSIONS Mildly dilated left ventricle. Wall thickness is normal. The left ventricular systolic function is moderately to severely reduced with an estimated ejection fraction of 30%. There is distal anteroseptal, apical and distal inferolateral hypokinesis. The left atrial size is mildly dilated. Moderate mitral valve regurgitation. Aortic valve sclerosis is present. [id number] aortic valve regurgitation. There is mild tricuspid valve regurgitation. The estimated pulmonary arterial pressure is 50 mmHg. BP: / HR: Rhythm: Sinus MEASUREMENTS (Male / Female) Normal Values Technical Quality:Technically difficult study 2D ECHO LV Diastolic Diameter PLAX 6.1 cm 4.2 - 5.9 / 3.9 - 5.3 cm LV Systolic Diameter PLAX 5.1 cm IVS Diastolic Thickness 0.6 cm 0.6 - 1.0 / 0.6 - 0.9 cm LVPW Diastolic Thickness 0.6 cm 0.6 - 1.0 / 0.6 - 0.9 cm LV Relative Wall Thickness 0.2 RV Internal Dim ED PLAX 1.4 cm LVOT Diameter 2.0 cm Aortic Root Diameter 2.7 cm LA Systolic Diameter LX 4.6 cm 3.0 - 4.0 / 2.7 - 3.8 cm M-MODE AV Cusp Separation MM 2.2 cm DOPPLER AV Peak Velocity 153.0 cm/s AV Peak Gradient 9.4 mmHg AV Mean Gradient 4.0 mmHg AV Velocity Time Integral 24.6 cm AI Peak Velocity 350.0 cm/s AI Peak Gradient 49.0 mmHg AI Pressure Half Time 270.0 ms LVOT Peak Velocity 62.4 cm/s LVOT Peak Gradient 1.6 mmHg LVOT Velocity Time Integral 10.7 cm AV Area Cont Eq vti 1.4 cm AV Area Cont Eq pk 1.3 cm Mitral E Point Velocity 96.3 cm/s Mitral A Point Velocity 45.4 cm/s Mitral E to A Ratio 2.1 LV E' Lateral Velocity 11.2 cm/s Mitral E to LV E' Lateral Ratio 8.6 LV E' Septal Velocity 5.9 cm/s Mitral E to LV E' Septal Ratio 16.2 TR Peak Velocity 316.0 cm/s TR Peak Gradient 39.9 mmHg Right Atrial Pressure 10.0 mmHg Pulmonary Artery Systolic Pressu 49.9 mmHg Right Ventricular Systolic Press 49.9 mmHg PV Peak Velocity 58.7 cm/s PV Peak Gradient 1.4 mmHg FINDINGS LEFT VENTRICLE Mildly dilated left ventricle. Wall thickness is normal. The left ventricular systolic function is moderately to severely reduced with an estimated ejection fraction of 30%. There is distal anteroseptal, apical and distal inferolateral hypokinesis. RIGHT VENTRICLE Normal right ventricular size and systolic function. LEFT ATRIUM The left atrial size is mildly dilated. RIGHT ATRIUM The right atrial size is normal. ATRIAL SEPTUM No atrial level shunt is demonstrated by color flow Doppler interrogation. AORTA The aortic root and proximal ascending aorta are not well visualized. MITRAL VALVE Moderate mitral valve regurgitation. AORTIC VALVE Aortic valve sclerosis is present. [id number] aortic valve regurgitation. TRICUSPID VALVE There is mild tricuspid valve regurgitation. The estimated pulmonary arterial pressure is 49.9 mmHg. PULMONARY VALVE The pulmonary valve is not well visualized. VESSELS The inferior vena cava was not well visualized. PERICARDIUM No pericardial effusion. No pericardial effusion. Chino Zaman MD, FACC (Electronically Signed) Final Date:30 April 2018 15:52
[2018-04-30] MEDS ORDERED: levETIRAcetam 500mg/100mL Inj 100 ML IV.SIG SCH (16:00)
[2018-04-30] MEDS: LEVETIRACETAM IV.SIG SCH (17:26)
[2018-04-30] MEDS: SODIUM CHLOR 0.9% IV.SIG SCH (17:26)
[2018-04-30] MEDS: Pantoprazole Inj 40 MG Vial IV.PUSH SCH (17:26)
[2018-04-30] MEDS ORDERED: Heparin 10,000 UNITS/10 ML Vial (for IV use) IV.PUSH STA (18:38)
[2018-04-30] MEDS ORDERED: Heparin Drip 25,000 UNIT/250 ML BAG IV.CONT PRN (18:38)
--- NOTE | 2018-04-30 19:05 | P.PNPL ---
Subjective Interval history: 72 YOWF with Br asthma, COPD, Bipolar disorder, AMS Stroke alert was called While pt was lying flat, aspirated Became sob Tr to CVICU On PRB On Levaquin,Flagyl and Azactem Physical Exam Vital signs: Vital Signs 04/29/18 20:00 04/29/18 21:00 04/29/18 21:36 Temperature 98.8 F Pulse Rate 86 80 76 Respiratory Rate 16 17 Blood Pressure 120/65 Pulse Oximetry 100 100 04/29/18 22:00 04/29/18 23:00 04/30/18 00:00 Temperature 98.6 F Pulse Rate 66 83 76 Respiratory Rate 18 Blood Pressure 130/75 Pulse Oximetry 100 04/30/18 01:00 04/30/18 02:00 04/30/18 03:00 Temperature Pulse Rate 66 78 73 Respiratory Rate Blood Pressure Pulse Oximetry 04/30/18 04:00 04/30/18 05:00 04/30/18 06:00 Temperature 98.8 F Pulse Rate 78 66 74 Respiratory Rate 18 Blood Pressure 138/70 Pulse Oximetry 99 04/30/18 07:00 04/30/18 07:45 04/30/18 09:28 Temperature 97.9 F Pulse Rate 69 69 Respiratory Rate 18 Blood Pressure 138/76 Pulse Oximetry 100 93 L 04/30/18 11:00 04/30/18 13:45 04/30/18 15:00 Temperature 98.9 F Pulse Rate 88 101 H Respiratory Rate 18 Blood Pressure 140/89 Pulse Oximetry 94 L 95 97 04/30/18 16:00 04/30/18 16:50 04/30/18 17:35 Temperature 98.3 F Pulse Rate 110 H Respiratory Rate 16 16 Blood Pressure 144/86 H Pulse Oximetry 95 Intake & Output 04/30/18 04/30/18 05/01/18 06:59 18:59 06:59 Intake Total 950 / 950 305 / 305 Output Total 625 / 625 350 / 350 Balance 325 / 325 -45 / -45 Weight 63.7 kg Intake: IV 350 / 350 305 / 305 Azactam Inj 2 GM In NS Inj 100 200 / 200 100 / 100 ML @ 200 mls/hr IV.SIG Q8H [facility] Rx#:[id number] Levaquin 750 mg Premix Inj 150 150 / 150 ML @ 100 mls/hr IV.SIG Q24H [facility] Rx#:[id number] Keppra Inj 500 MG In NS Inj 100 105 / 105 ML @ 420 mls/hr IV.SIG Q12H [facility] Rx#:[id number] Flagyl 500 MG Inj 100 ML @ 100 100 / 100 mls/hr IV.SIG Q8H [facility] Rx#: [id number] Oral 600 / 600 Output: Urine Amount (Catheter) 625 / 625 350 / 350 Indwelling Urethral Catheter 625 / 625 350 / 350 Other: Date of Last Bowel Movement 04/30/18 04/30/18 # Bowel Movements 1 GENERAL: Elderly WF, mild sob, On PRB SKIN: Warm and dry. HEAD: Normocephalic. EYES: No scleral icterus. No injection or drainage. NECK: Supple, trachea midline. No JVD or lymphadenopathy. CARDIOVASCULAR: Regular rate and rhythm without murmurs, gallops, or rubs. RESPIRATORY: Breath sounds equal bilaterally. No accessory muscle use. GASTROINTESTINAL: Abdomen soft, non-tender, nondistended. MUSCULOSKELETAL: No cyanosis, or edema. BACK: Nontender without obvious deformity. No CVA tenderness. - Urinary Catheter Management Straight Cath placed during this visit: yes Reason for continuing: Hourly intake/output Insertion date: 04/27/18 Insertion time: 16:10 Indwelling Urethral Catheter Cath placed during this visit: yes Reason for continuing: Hourly intake/output Insertion date: 04/27/18 Assessment and Plan - Plan IMPRESSION: 1. Pulmonary edema is significantly better. 2. COPD/bronchial asthma. 3. Altered mental status is improving. 4. Chronic pain. 5. Congestive heart failure. 6. Bipolar disorder. 7. Resp failure 7. Aspiration PLAN: Continue PRB Cont Abx If declines, will need intubation Aerosol nebs Symbicort 2 puffs bid
[2018-04-30 20:40] LABS: Troponin I 0.35 ng/mL (0.02-0.05)
[2018-04-30 20:52] LABS: CKMB Percent 3.4 % (0.0-4.0); Creatine Kinase MB 7.2 ng/mL (0.5-3.6)
[2018-04-30] MEDS: Divalproex 500 MG ER Tablet PO SCH (22:39)
[2018-04-30] MEDS: MethylPREDNISolone Sod Succinate Inj 125 MG/2 ML Vial IV.PUSH SCH (22:41)
[2018-05-01] MEDS ORDERED: Heparin 10,000 UNITS/10 ML Vial (for IV use) IV.PUSH PRN ×2 (00:38)
[2018-05-01] MEDS: Aztreonam Inj 2 GM in Sodium Chloride 0.9% Inj 100 ML IV.SIG SCH ×3 (02:56→18:18)
[2018-05-01 03:48] LABS: Baso % (Auto) 0.1 % (0.0-2.0); Hematocrit 34.5 % (35.0-46.0); Hemoglobin 11.9 gm/dL (11.6-15.3); Lymph # (Auto) 0.7 th/mm3 (1.0-4.8); Lymph % (Auto) 3.2 % (9.0-44.0); Mean Corpuscular HGB Conc 34.4 % (32.0-36.0); Mean Corpuscular Hemoglobin 34.1 pg (27.0-34.0); Mean Corpuscular Volume 99.2 fL (80.0-100.0); Mean Platelet Volume 9.2 fL (7.0-11.0); Mono # (Auto) 0.5 th/mm3 (0.0-0.9); Mono % (Auto) 2.2 % (0.0-8.0); Neut # (Auto) 20.4 th/mm3 (1.8-7.7); Neut % (Auto) 94.5 % (16.0-70.0); Platelet Count 245 th/mm3 (150-450); Red Blood Count 3.48 mil/mm3 (4.00-5.30); Red Cell Distribution Width 12.8 % (11.6-17.2); White Blood Count 21.6 th/mm3 (4.0-11.0)
[2018-05-01 04:16] LABS: Albumin 2.5 g/dL (3.4-5.0); Calcium 8.2 mg/dL (8.5-10.1); Carbon Dioxide 25.7 meq/L (21.0-32.0); Phosphorus 3.1 mg/dL (2.5-4.9); Troponin I 0.24 ng/mL (0.02-0.05)
[2018-05-01 04:19] LABS: Potassium 2.9 meq/L (3.5-5.1)
[2018-05-01] MEDS ORDERED: Magnesium Sulfate Inj 2 GM in Sodium Chlor 0.9% Inj 96 ML IV.SIG PRN (04:42)
[2018-05-01] MEDS ORDERED: Sodium Phosphate Inj 30 MMOL in Sodium Chlor 0.9% Inj 250 ML IV.SIG PRN (04:42)
[2018-05-01] MEDS ORDERED: Potassium Phosphate 500 MG Soluble Tablet PO PRN ×2 (04:42)
[2018-05-01] MEDS ORDERED: Magnesium Oxide 400 MG Tablet PO PRN (04:42)
[2018-05-01] MEDS ORDERED: Potassium Chlor 40 mEq Premix 40 MEQ/100 ML PIGGYBACK IV.SIG PRN ×2 (04:42)
[2018-05-01] MEDS ORDERED: Potassium Chloride 25 MEQ Effervescent Tablet PO PRN (04:42)
[2018-05-01] MEDS ORDERED: Potassium Phosphate Inj 30 MMOL in Sodium Chlor 0.9% Inj 250 ML IV.SIG PRN (04:42)
[2018-05-01] MEDS ORDERED: Magnesium Sulfate Inj 4 GM in Sodium Chlor 0.9% Inj 92 ML IV.SIG PRN (04:42)
[2018-05-01] MEDS: SODIUM CHLOR 0.9% IV.SIG SCH ×2 (06:36→20:19)
[2018-05-01] MEDS: LEVETIRACETAM IV.SIG SCH ×2 (06:36→20:19)
[2018-05-01] MEDS: Pantoprazole Inj 40 MG Vial IV.PUSH SCH ×2 (06:37→18:17)
[2018-05-01] MEDS: Levothyroxine 75 MCG Tablet PO SCH (06:37)
[2018-05-01] MEDS: Potassium Chlor 20 mEq Premix 20 MEQ/100 ML PIGGYBACK IV.SIG PRN ×2 (07:00→10:13)
[2018-05-01] MEDS ORDERED: Iohexol 350 MG/ML 50 ML Vial (for Cath Lab) IVCONTRAST ONE (09:04)
[2018-05-01] MEDS: MethylPREDNISolone Sod Succinate Inj 125 MG/2 ML Vial IV.PUSH SCH ×2 (10:07→20:24)
[2018-05-01] MEDS: Docusate Sodium 100 MG Capsule PO SCH ×2 (10:09→22:40)
[2018-05-01] MEDS: guaiFENesin 600 MG ER Tablet PO SCH ×2 (10:09→20:20)
[2018-05-01] MEDS: Estradiol 1 MG Tablet PO SCH (10:09)
[2018-05-01] MEDS: Psyllium Fiber SF/GF 6 GM Packet PO SCH ×2 (10:09→20:20)
[2018-05-01] MEDS: Furosemide 40 MG Tablet PO SCH (10:09)
[2018-05-01] MEDS: Montelukast 10 MG Tablet PO SCH (10:10)
[2018-05-01] MEDS: Budesonide-Formoterol 160/4.5 MCG 6 GM Inhaler INH SCH ×2 (10:10→20:25)
[2018-05-01] MEDS: Acyclovir 200 MG Capsule PO SCH (10:11)
--- NOTE | 2018-05-01 10:33 | P.PN ---
Subjective Interval history: TRANSFERRED TO [facility] ?stroke alert aspiration and elevated troponin no mri due to pain pump eeg can be done later when able to lay flat. on iv heparin cardiology to see. cta cow /ca neg. Physical Exam Vital signs: Vital Signs 04/30/18 11:00 04/30/18 13:45 04/30/18 15:00 Temperature 98.9 F Pulse Rate 88 101 H Respiratory Rate 18 Blood Pressure 140/89 Pulse Oximetry 94 L 95 97 04/30/18 16:00 04/30/18 16:50 04/30/18 17:35 Temperature 98.3 F Pulse Rate 110 H Respiratory Rate 16 16 Blood Pressure 144/86 H Pulse Oximetry 95 04/30/18 19:00 04/30/18 21:16 04/30/18 21:42 Temperature 99.3 F Pulse Rate 81 87 Respiratory Rate 20 20 Blood Pressure 114/70 Pulse Oximetry 95 04/30/18 23:00 05/01/18 03:00 05/01/18 07:00 Temperature 97.4 F L 98.4 F 98.6 F Pulse Rate 88 83 82 Respiratory Rate 20 20 20 Blood Pressure 128/71 137/76 114/55 L Pulse Oximetry 97 05/01/18 08:07 Temperature Pulse Rate 91 H Respiratory Rate 18 Blood Pressure Pulse Oximetry 95 Intake & Output 04/30/18 05/01/18 05/01/18 18:59 06:59 18:59 Intake Total 455 / 455 120 / 120 405 / 405 Output Total 350 / 350 825 / 825 Balance 105 / 105 -705 / -705 405 / 405 Weight 65 kg Intake: IV 455 / 455 100 / 100 405 / 405 Azactam Inj 2 GM In NS Inj 100 100 / 100 100 / 100 ML @ 200 mls/hr IV.SIG Q8H [facility] Rx#:[id number] Levaquin 750 mg Premix Inj 150 150 / 150 ML @ 100 mls/hr IV.SIG Q24H PAULINE Rx#:[id number] KCl 20 mEq Premix Inj 20 meq In 100 / 100 100 ml @ 50 mls/hr IV.SIG Q2H PRN Rx#:[id number] Keppra Inj 500 MG In NS Inj 100 105 / 105 105 / 105 ML @ 420 mls/hr IV.SIG Q12H PA[facility]INE Rx#:[id number] Flagyl 500 MG Inj 100 ML @ 100 100 / 100 100 / 100 100 / 100 mls/hr IV.SIG Q8H [facility] Rx#: [id number] Oral Output: Urine Amount (Catheter) 350 / 350 825 / 825 Indwelling Urethral Catheter 350 / 350 825 / 825 Other: Date of Last Bowel Movement 04/30/18 05/01/18 05/01/18 Narrative: awake alert fluent flat affect no facial droop no dysarthria or aphasia follows commands no drift or leg lag no weakness or sensory changes dtrs 2+ toes down b/l. - Urinary Catheter Management Straight Cath placed during this visit: yes Reason for continuing: Hourly intake/output Insertion date: 04/27/18 Insertion time: 16:10 Indwelling Urethral Catheter Cath placed during this visit: yes Reason for continuing: Hourly intake/output Insertion date: 04/27/18 Results - Labs CBC & Chem 7: 05/01/18 03:41 05/01/18 03:41 Laboratory Results - last 24 hr 04/30/18 04/30/18 04/30/18 10:43 10:43 10:43 WBC RBC Hgb POC Hgb (Calc) Hct POC Hct MCV MCH MCHC RDW Plt Count MPV Neut % (Auto) Lymph % (Auto) Valley % (Auto) Eos % (Auto) Baso % (Auto) Neut # (Auto) Lymph # (Auto) Valley # (Auto) Eos # (Auto) Baso # (Auto) WBC Differential Differential Comment PT INR APTT Fibrinogen POC Sodium Sodium POC Potassium Potassium POC Chloride Chloride Carbon Dioxide Anion Gap POC BUN BUN Creatinine POC Creatinine Estimated GFR POC Glucose Random Glucose Calcium Phosphorus Ammonia 17 Total Creatine Kinase 437 H CK-MB (CK-2) 12.5 H CK-MB (CK-2) % 2.9 Troponin I B-Natriuretic Peptide Albumin Lipase Riva 0.1 L Blood Type Antibody Screen 04/30/18 04/30/18 04/30/18 11:21 11:25 12:43 WBC 20.3 H RBC 3.91 L Hgb 13.1 POC Hgb (Calc) 12.9 Hct 39.5 POC Hct 38.0 MCV 101.1 H MCH 33.5 MCHC 33.1 RDW 13.1 Plt Count 291 MPV 9.1 Neut % (Auto) 92.3 H Lymph % (Auto) 4.2 L Valley % (Auto) 3.3 Eos % (Auto) 0.1 Baso % (Auto) 0.1 Neut # (Auto) 18.8 H Lymph # (Auto) 0.8 L Valley # (Auto) 0.7 Eos # (Auto) 0.0 Baso # (Auto) 0.0 WBC Differential . Differential Comment Auto diff final PT INR APTT Fibrinogen POC Sodium 128 L Sodium POC Potassium 3.1 L Potassium POC Chloride Chloride Carbon Dioxide Anion Gap POC BUN BUN Creatinine POC Creatinine 0.6 Estimated GFR POC Glucose 125 H 121 H Random Glucose Calcium Phosphorus Ammonia Total Creatine Kinase CK-MB (CK-2) CK-MB (CK-2) % Troponin I B-Natriuretic Peptide Albumin Lipase Riva Blood Type Antibody Screen 04/30/18 04/30/18 04/30/18 12:43 12:43 12:43 WBC RBC Hgb POC Hgb (Calc) Hct POC Hct MCV MCH MCHC RDW Plt Count MPV Neut % (Auto) Lymph % (Auto) Valley % (Auto) Eos % (Auto) Baso % (Auto) Neut # (Auto) Lymph # (Auto) Valley # (Auto) Eos # (Auto) Baso # (Auto) WBC Differential Differential Comment PT 11.5 INR 1.1 APTT 26.7 Fibrinogen 555 H POC Sodium Sodium POC Potassium Potassium POC Chloride Chloride Carbon Dioxide Anion Gap POC BUN BUN Creatinine POC Creatinine Estimated GFR POC Glucose Random Glucose Calcium Phosphorus Ammonia Total Creatine Kinase 394 H CK-MB (CK-2) CK-MB (CK-2) % Troponin I 0.25 H B-Natriuretic Peptide Albumin Lipase Riva Blood Type A Positive Antibody Screen Negative 04/30/18 04/30/18 04/30/18 12:43 16:31 16:31 WBC RBC Hgb POC Hgb (Calc) Hct POC Hct MCV MCH MCHC RDW Plt Count MPV Neut % (Auto) Lymph % (Auto) Valley % (Auto) Eos % (Auto) Baso % (Auto) Neut # (Auto) Lymph # (Auto) Valley # (Auto) Eos # (Auto) Baso # (Auto) WBC Differential Differential Comment PT INR APTT Fibrinogen POC Sodium Sodium POC Potassium Potassium POC Chloride Chloride Carbon Dioxide Anion Gap POC BUN BUN Creatinine POC Creatinine Estimated GFR POC Glucose Random Glucose Calcium Phosphorus Ammonia 15 Total Creatine Kinase CK-MB (CK-2) CK-MB (CK-2) % Troponin I B-Natriuretic Peptide 2804 H Albumin Lipase 61 L Riva Blood Type Antibody Screen 04/30/18 05/01/18 05/01/18 19:45 03:41 03:41 WBC 21.6 H RBC 3.48 L Hgb 11.9 POC Hgb (Calc) Hct 34.5 L POC Hct MCV 99.2 MCH 34.1 H MCHC 34.4 RDW 12.8 Plt Count 245 MPV 9.2 Neut % (Auto) 94.5 H Lymph % (Auto) 3.2 L Valley % (Auto) 2.2 Eos % (Auto) 0.0 Baso % (Auto) 0.1 Neut # (Auto) 20.4 H Lymph # (Auto) 0.7 L Valley # (Auto) 0.5 Eos # (Auto) 0.0 Baso # (Auto) 0.0 WBC Differential . Differential Comment Auto diff final PT INR APTT Fibrinogen POC Sodium Sodium 134 L POC Potassium Potassium 2.9 L* D POC Chloride Chloride 98 Carbon Dioxide 25.7 Anion Gap 10 POC BUN BUN 17 Creatinine 0.78 POC Creatinine Estimated GFR 73 L POC Glucose Random Glucose 139 H Calcium 8.2 L Phosphorus 3.1 Ammonia Total Creatine Kinase 209 H CK-MB (CK-2) 7.2 H CK-MB (CK-2) % 3.4 Troponin I 0.35 H D 0.24 H D B-Natriuretic Peptide Albumin 2.5 L Lipase Riva Blood Type Antibody Screen 05/01/18 05/01/18 03:41 05:05 WBC RBC Hgb POC Hgb (Calc) Hct POC Hct MCV MCH MCHC RDW Plt Count MPV Neut % (Auto) Lymph % (Auto) Valley % (Auto) Eos % (Auto) Baso % (Auto) Neut # (Auto) Lymph # (Auto) Valley # (Auto) Eos # (Auto) Baso # (Auto) WBC Differential Differential Comment PT INR APTT 169.7 H* D 82.6 H D Fibrinogen POC Sodium Sodium POC Potassium Potassium POC Chloride Chloride Carbon Dioxide Anion Gap POC BUN BUN Creatinine POC Creatinine Estimated GFR POC Glucose Random Glucose Calcium Phosphorus Ammonia Total Creatine Kinase CK-MB (CK-2) CK-MB (CK-2) % Troponin I B-Natriuretic Peptide Albumin Lipase Riva Blood Type Antibody Screen Microbiology 04/28/18 16:55 Blood - Peripheral Aerobic Blood Culture - Final Beta Streptococcus Group C 04/28/18 16:55 Blood - Peripheral Anaerobic Blood Culture - Preliminary No growth in 2 days 04/28/18 17:00 Blood - Peripheral Aerobic Blood Culture - Preliminary No growth in 2 days 04/28/18 17:00 Blood - Peripheral Anaerobic Blood Culture - Preliminary No growth in 2 days - Imaging Impressions Head CTA 04/30/18 00:00 CONCLUSION: 1. No evidence of intraluminal filling defects or steno-occlusive disease. 2. Unremarkable anterior and posterior intracranial circulation 3. No evidence of extracranial carotid or vertebral steno-occlusive disease. Neck CTA 04/30/18 00:00 CONCLUSION: 1. No carotid stenosis. 2. Bilateral upper lobe patchy lung densities. Head CT 04/30/18 11:41 CONCLUSION: 1. No acute intracranial abnormalities. Report was called by [ Dr. Joseph to Dr. Mccarty at 11:57 AM] Chest X-Ray 04/30/18 12:56 CONCLUSION: Cardiomegaly with bilateral mostly basilar and perihilar airspace disease. Differential diagnosis includes aspiration and pneumonia as well as some pulmonary edema. Assessment and Plan - Plan cont current care cardiology to see can not do mri but cta ca and cow neg. eeg when able cont vpa for bipolar level 38 no hx sz
--- NOTE | 2018-05-01 12:41 | P.PNCC ---
Subjective Subjective Remarks/Hospital Course: This is a 72 yo female patient with a medical history significant for bipolar disorder, COPD, heart failure, and chronic back pain on an intrathecal morphine pump. The patient and presented to ER on 04/27 with concern for AMS x 3 days. Patient is only able to provide a limited amount of history. Patient states that her pump had been being adjusted as an outpatient. Per ER physician who spoke with the , there is no concern or suspicion of overdose. There is no history of alcohol or drug abuse. Per ER documentation ammonia was found to be elevated as an outpatient so the lithium was being weaned off. Patient was hypotensive on admission and was given several boluses of IV fluids. She later developed some pulmonary edema with some shortness of breath. She received 40 mg of IV Lasix. She was hep-locked. Per nursing report on arrival to the ER patient was noted to exhibit some tremors. Concern was for seizure. Per review of EMR, patient presented similarly in November with altered mental status and hypotension. Patient was also found to be bradycardic at that time likely to due to her high doses of antiarrhythmics. On 04/30 around 11 AM patient developed altered mental status and stroke alert was called. Patient was evaluated by Dr. Mccarty. Head CT was negative for bleed. She was transferred back to [facility] but she was flagged when she had nausea vomiting and had an episode of aspiration following which she was hypoxic with O2 sats now in the 70s. Patient was placed on a nonrebreather facemask, a rapid response was called and she was transferred to ICU. Dr. Todd contacted me and requested critical care consult for aspiration and acute respiratory failure with concern that patient may need intubation. I evaluated the patient immediately on being notified following her arrival to the CVICU. At that time she was on a nonrebreather facemask maintaining O2 sats in the mid 90s slightly tachypneic. She was much more awake per nursing staff at the time of my evaluation and appeared to be improving neurologically. Patient could give me her name and knew she was at [facility] and knew it was 2018. She was still confused and disoriented which was close to her baseline mental status prior to her deterioration this morning. Patient has had a leukocytosis and has been on empiric antibiotic coverage including IV Levaquin/Azactam and Flagyl IV was added following epidural aspiration today by Dr. Todd. History was obtained by reviewing records, discussion with Dr. Todd as well as nursing staff at bedside 05/01 Patient is lying in bed in NAD. On 5L oxygen. For cardiac cath this afternoon. On Heparin drip. Objective Vital Signs / I&O: Vital Signs 04/30/18 13:45 04/30/18 15:00 04/30/18 16:00 Temperature 98.3 F Pulse Rate 101 H 110 H Respiratory Rate 16 Blood Pressure 144/86 H Pulse Oximetry 95 97 04/30/18 16:50 04/30/18 17:35 04/30/18 19:00 Temperature 99.3 F Pulse Rate 81 Respiratory Rate 16 20 Blood Pressure 114/70 Pulse Oximetry 95 04/30/18 21:16 04/30/18 21:42 04/30/18 23:00 Temperature 97.4 F L Pulse Rate 87 88 Respiratory Rate 20 20 Blood Pressure 128/71 Pulse Oximetry 95 05/01/18 03:00 05/01/18 07:00 05/01/18 08:07 Temperature 98.4 F 98.6 F Pulse Rate 83 82 91 H Respiratory Rate 20 20 18 Blood Pressure 137/76 114/55 L Pulse Oximetry 97 95 05/01/18 11:00 Temperature 98.5 F Pulse Rate 74 Respiratory Rate 18 Blood Pressure 118/51 L Pulse Oximetry 97 Intake & Output 04/30/18 05/01/18 05/01/18 18:59 06:59 18:59 Intake Total 455 / 455 120 / 120 505 / 505 Output Total 350 / 350 825 / 825 Balance 105 / 105 -705 / -705 505 / 505 Weight 65 kg Intake: IV 455 / 455 100 / 100 505 / 505 Azactam Inj 2 GM In NS Inj 100 100 / 100 200 / 200 ML @ 200 mls/hr IV.SIG Q8H [facility] Rx#:[id number] Levaquin 750 mg Premix Inj 150 150 / 150 ML @ 100 mls/hr IV.SIG Q24H [facility] Rx#:[id number] KCl 20 mEq Premix Inj 20 meq In 100 / 100 100 ml @ 50 mls/hr IV.SIG Q2H PRN Rx#:[id number] Keppra Inj 500 MG In NS Inj 100 105 / 105 105 / 105 ML @ 420 mls/hr IV.SIG Q12H [facility] Rx#:[id number] Flagyl 500 MG Inj 100 ML @ 100 100 / 100 100 / 100 100 / 100 mls/hr IV.SIG Q8H [facility] Rx#: [id number] Oral Output: Urine Amount (Catheter) 350 / 350 825 / 825 Indwelling Urethral Catheter 350 / 350 825 / 825 Other: Date of Last Bowel Movement 04/30/18 05/01/18 05/01/18 Result Diagrams: 05/01/18 03:41 05/01/18 03:41 Other Results: Laboratory Results - last 12 hr 05/01/18 05/01/18 05/01/18 03:41 03:41 03:41 WBC 21.6 H RBC 3.48 L Hgb 11.9 Hct 34.5 L MCV 99.2 MCH 34.1 H MCHC 34.4 RDW 12.8 Plt Count 245 MPV 9.2 Neut % (Auto) 94.5 H Lymph % (Auto) 3.2 L Potter % (Auto) 2.2 Eos % (Auto) 0.0 Baso % (Auto) 0.1 Neut # (Auto) 20.4 H Lymph # (Auto) 0.7 L Potter # (Auto) 0.5 Eos # (Auto) 0.0 Baso # (Auto) 0.0 WBC Differential . Differential Comment Auto diff final APTT 169.7 H* D Sodium 134 L Potassium 2.9 L* D Chloride 98 Carbon Dioxide 25.7 Anion Gap 10 BUN 17 Creatinine 0.78 Estimated GFR 73 L Random Glucose 139 H Calcium 8.2 L Phosphorus 3.1 Troponin I 0.24 H D Albumin 2.5 L 05/01/18 05:05 WBC RBC Hgb Hct MCV MCH MCHC RDW Plt Count MPV Neut % (Auto) Lymph % (Auto) Potter % (Auto) Eos % (Auto) Baso % (Auto) Neut # (Auto) Lymph # (Auto) Potter # (Auto) Eos # (Auto) Baso # (Auto) WBC Differential Differential Comment APTT 82.6 H D Sodium Potassium Chloride Carbon Dioxide Anion Gap BUN Creatinine Estimated GFR Random Glucose Calcium Phosphorus Troponin I Albumin Imaging: Head CTA 04/30/18 00:00 CONCLUSION: 1. No evidence of intraluminal filling defects or steno-occlusive disease. 2. Unremarkable anterior and posterior intracranial circulation 3. No evidence of extracranial carotid or vertebral steno-occlusive disease. Neck CTA 04/30/18 00:00 CONCLUSION: 1. No carotid stenosis. 2. Bilateral upper lobe patchy lung densities. Head CT 04/30/18 11:41 CONCLUSION: 1. No acute intracranial abnormalities. Report was called by [ Dr. Joseph to Dr. Mccarty at 11:57 AM] Chest X-Ray 04/30/18 12:56 CONCLUSION: Cardiomegaly with bilateral mostly basilar and perihilar airspace disease. Differential diagnosis includes aspiration and pneumonia as well as some pulmonary edema. Objective Remarks: GENERAL: Patient is 72 yo lying in bed on 5L oxygen. SKIN: Warm and dry. HEAD: Normocephalic. EYES: No scleral icterus. No injection or drainage. NECK: Supple, trachea midline. No JVD or lymphadenopathy. CARDIOVASCULAR: Regular rate and rhythm without murmurs, gallops, or rubs. RESPIRATORY: Breath sounds equal bilaterally. No accessory muscle use. GASTROINTESTINAL: Abdomen soft, non-tender, nondistended. MUSCULOSKELETAL: No cyanosis, or edema. Neuro: Awake and alert Assessment and Plan - Assessment and Plan Plan: 72-year-old female with: 1)Resp Insuff 2)Encephalopathy 3)Aspiration pneumonia 4)COPD with possible exacerbation following aspiration 5)NSTEMI 6)CHF 7)Bipolar disorder 8)Leukocytosis Plan: Neuro: Continue Depakote/Keppra IV. Neurology and psychiatry following. Psych meds to be clarified per discussion with Dr. Jacobs. Head CT, CTA brain and neck unremarkable. Awaiting MRI brain. CV: Monitor HR and BP keep MAP>65mmHg Continue with Heparin drip. For cardiac cath this afternoon. NTG SL PRN for pain, ASA 81mg daily Echo:EF 30%. Distal anteroseptal, apical and distal inferolateral hypokinesis. PAP 50 mmHg. Pulm: Continue to wean down oxygen as jensen keep sats >92% Bronchodilators, Symbicort, Singulair, decrease Solu-Medrol 40 mg IV every 12 hourly Pulmonary following-Dr. Funk GI/liver: NPO for cath On Protonix IV. Renal/: Monitor renal function, I/O's, electrolytes replacement per protocol. Change Lasix 20mg IV daily ID: On IV Levaquin/Flagyl/Azactam. On p.o. acyclovir. 8/5 Blood culture Group C Beta strep , check BC x2 sets today, sputum cx, strep pneumonia and Legionella urinary Ag ID eval Endocrine: Watch for hyperglycemia, SSI for glycemic control if needed. Prophylaxis: Protonix/SCDs/Heparin drip Level 3
--- NOTE | 2018-05-01 15:16 | P.PNCA ---
Subjective Interval history: Experiencing more shortness of breath. Physical Exam Vital signs: Vital Signs 04/30/18 16:00 04/30/18 16:50 04/30/18 17:35 Temperature 98.3 F Pulse Rate 110 H Respiratory Rate 16 16 Blood Pressure 144/86 H Pulse Oximetry 95 04/30/18 19:00 04/30/18 21:16 04/30/18 21:42 Temperature 99.3 F Pulse Rate 81 87 Respiratory Rate 20 20 Blood Pressure 114/70 Pulse Oximetry 95 04/30/18 23:00 05/01/18 03:00 05/01/18 07:00 Temperature 97.4 F L 98.4 F 98.6 F Pulse Rate 88 83 82 Respiratory Rate 20 20 20 Blood Pressure 128/71 137/76 114/55 L Pulse Oximetry 97 05/01/18 08:07 05/01/18 11:00 Temperature 98.5 F Pulse Rate 91 H 74 Respiratory Rate 18 18 Blood Pressure 118/51 L Pulse Oximetry 95 97 Intake & Output 04/30/18 05/01/18 05/01/18 18:59 06:59 18:59 Intake Total 455 / 455 120 / 120 505 / 505 Output Total 350 / 350 825 / 825 Balance 105 / 105 -705 / -705 505 / 505 Weight 65 kg Intake: IV 455 / 455 100 / 100 505 / 505 Azactam Inj 2 GM In NS Inj 100 100 / 100 200 / 200 ML @ 200 mls/hr IV.SIG Q8H PAULINE Rx#:[id number] Levaquin 750 mg Premix Inj 150 150 / 150 ML @ 100 mls/hr IV.SIG Q24H PAULINE Rx#:[id number] KCl 20 mEq Premix Inj 20 meq In 100 / 100 100 ml @ 50 mls/hr IV.SIG Q2H PRN Rx#:[id number] Keppra Inj 500 MG In NS Inj 100 105 / 105 105 / 105 ML @ 420 mls/hr IV.SIG Q12H PAULINE Rx#:[id number] Flagyl 500 MG Inj 100 ML @ 100 100 / 100 100 / 100 100 / 100 mls/hr IV.SIG Q8H PAULINE Rx#: [id number] Oral 20 / 20 Output: Urine Amount (Catheter) 350 / 350 825 / 825 Indwelling Urethral Catheter 350 / 350 825 / 825 Other: Date of Last Bowel Movement 04/30/18 05/01/18 05/01/18 - Constitutional mild distress - Routine HEENT Exam Head: Present: normocephalic - Routine Respiratory Exam Present: crackles (at base) - Routine Cardiovascular Exam Present: RRR, S1, S2 - Routine Extremities Exam Absent: edema - Urinary Catheter Management Straight Cath placed during this visit: yes Reason for continuing: Hourly intake/output Insertion date: 04/27/18 Insertion time: 16:10 Indwelling Urethral Catheter Cath placed during this visit: yes Reason for continuing: Hourly intake/output Insertion date: 04/27/18 Assessment and Plan - Plan New onset Systolic HF Given new findings of systolic HF, RWMA, and elevated troponins, will proceed with LHC/RHC today. Risks, benefits, and alternatives discussed with the patient. Will continue with IV diuresis.
[2018-05-01] MEDS ORDERED: fentaNYL Citrate Inj 100 MCG/2 ML Ampul ONE (15:50)
[2018-05-01] MEDS ORDERED: Heparin/NS PF Inj 1,000 ML ONE (15:50)
[2018-05-01] MEDS ORDERED: Heparin 10,000 UNITS/10 ML Vial (for IV use) ONE (15:50)
--- NOTE | 2018-05-01 17:50 | CATHPROC ---
[employer] HIS Report Study Information Study Number Admission Scheduled Start Study Start [id number] Apr 27 2018 4:31PM 05/01/2018 May 01 2018 3:37PM [facility] Cardiac Catheterization Admit Source Facility Department Other [facility] - [facility] Physician and Clinical Staff Initial Reji Mitchell Net Washer Karma Powers RN Recorder Yvonne Messina,RT(R) Scrub Marium Lynch,NANI TECH2 Procedures Performed Procedure Location (Site) Vessel Name Coronary Angiograms LCA Left Coronary Coronary Angiograms RCA Right Coronary Equipment Time Plugger Man Description Size Mfg Part Number Used/Scraped CATHETER, FR5 SWAN JAME 16:26 ORTIZ AVALOS FR 5 [id number] *[id number] Used MONITOR TRANSDUCER, TRUWAVE [id number] 15:41 ORTIZ AVALOS * Used W/STOCKCOCK *[id number] 15:41 [facility] SUPPORT, ARTERIAL ADULT [id number] Used [id number] 17:21 [employer] MEDICAL VASCADE, FR5 CLOSURE SYSTEM FR 5 Used *[id number]-21-2.5 15:41 [employer]. NEEDLE, PERCUTANEOUS ENTRY 21G X 2.5CM Used *[id number] 15:41 [employer] BLANKET,WARM AIR CCL * Used *[id number] 15:41 [employer] PACK, CCL CUSTOM * Used *[id number] 17:13 [employer] JL 3.5 DXTERITY CATHETER FR 5 Used *[id number] 17:07 [employer] JR 4.0 DXTERITY CATHETER FR 5 Used *[id number] BAND, RADIAL COMPRESSION TR [id number] 17:22 [employer] MEDICAL 24CM Used SHORT 24 *[id number] 16:26 [employer] MEDICAL SHEATH, FR5.5 PRELUDE 11CM FR 5 [id number] Used [id number] 15:41 [employer] MEDICAL WIRE, EXCHANGE 260CM 3MMJ 260CM Used *[id number] 15:41 [employer] MANIFOLD, 4 PORT * Used *[id number] 15:41 [employer] OMNIPAQUE, 350 MG, 150ML 150ML [id number] Used SHEATH, FR6 TRANSRADIAL [id number] 15:41 [employer] MEDICAL FR 6 Used SLENDER 10CM *[id number] History: Current Medications Medication Dosage/Unit Route Frequency Last Date/Time Taken ASA Synthroid History: Allergies Allergy Reaction Feldene Flexeril PAU hydroxyzine Hives latex rash Penicillin hives Sulfa hives Vistaril Sulfa (Sulfonamide Antibiotics) hives piroxicam Hives cyclobenzaprine PAU penicillin G hives History: Risk Factors Hypertension Yes Chronic Lung Disease History: Stress Tests Stress or Imaging Studies Performed No Labs Hgb (g/dl) Hct (%) WBC (l/cumm) Platelets (thousands) 11.60-17.00 35.00-51.00 4.00-11.00 150.00-450.00 11.9 34.5 21.6 245 Glucose (mg/dl) BUN (mg/dl) Creatinine (mg/dl) BUN:Creatinine (1:x) 74.00-106.00 7.00-18.00 0.50-1.30 10.00-20.00 139 17 0.7 24.3 Na (meq/l) K (meq/l) 136.00-145.00 3.50-5.10 134 2.9 INR (PTT:PT) 0.90-1.10 1.1 Troponin I (ng/ml) CPK (u/l) CPK-MB (ng/ML) 0.02-0.05 26.00-308.00 0.50-3.60 0.24 209 7.2 Medication Medication Total Dose (Bolus/Oral) Medication Total Dosage/Unit 1% XYLOCAINE 10 mL FENTANYL 75 mcg HEPARIN 5000 units OXYGEN 4 l/min VERAPAMIL 2.5 mg VERSED 2 mg Medications (Bolus/Oral) Medication Time Given Dosage/Unit Administered By Reason OXYGEN 05/01/2018 4:20:30 PM 4 l/min Patient arrived on 4 l/min OXYGEN via Nasal. VERSED 05/01/2018 4:48:22 PM 1 mg Karma Powers 1 mg VERSED given in lab by Karma Powers, TIM in Left Antecubital via Peripheral IV. Ordered by Reji Bass. FENTANYL 05/01/2018 4:49:50 PM 50 mcg Karma Powers 50 mcg FENTANYL given in lab by Karma Powers, RN in Left Antecubital via Peripheral IV. Ordered by Reji Ramirez. 1% XYLOCAINE 05/01/2018 4:53:55 PM 5 mL Reji Ramirez 5 mL 1% XYLOCAINE given in lab by Reji Ramirez in Right Groin via Subcutaneous. 1% XYLOCAINE 05/01/2018 5:03:18 PM 5 mL Reji Ramirez 5 mL 1% XYLOCAINE given in lab by Reji Ramirez in Right Radial via Subcutaneous. VERAPAMIL 05/01/2018 5:05:27 PM 2.5 mg Reji Ramirez 2.5 mg VERAPAMIL given in lab by Reji Ramirez in Right Radial via Intra-arterial. VERSED 05/01/2018 5:06:01 PM 1 mg Karma Powers 1 mg VERSED given in lab by Karma Powers RN in Left Antecubital via Peripheral IV. Ordered by Reji Bass. FENTANYL 05/01/2018 5:07:05 PM 25 mcg Karma Powers 25 mcg FENTANYL given in lab by Karma Powers RN in Left Antecubital via Peripheral IV. Ordered by Reji Ramirez. HEPARIN 05/01/2018 5:13:02 PM 5000 units Karma Powers 5000 units HEPARIN given in lab by Karma Powers RN in Left Antecubital via Peripheral IV. Ordered by Reji Ramirez. Medication (Drip) Medication Time Given Dosage/Unit Concentration/Unit Diluent (ml) Solution IV Solutions 05/01/2018 4:20:07 PM 50 mL (IV) NaCl .9 Patient arrived on IV Solutions in Left Antecubital via Peripheral IV. Pump/Drip Flow using NaCl .9. Initial Case Assessment Circulatory - Right Pulses Dorsalis Pedis Femoral Radial 2 2 2 Scale (0,1,2,3,4,d) Circulatory - Left Pulses Dorsalis Pedis Femoral Radial 2 2 Scale (0,1,2,3,4,d) Chronological Log Time Study Chronological Log 16:19:46 Patient arrived via Bed. 16:19:48 Patient Name, D.O.B, / Armband Verified By R.N. 16:19:49 Consent signed by the physician and the patient and verified by the [facility] staff. 16:19:51 Pre-op and post- op instructions given; patient acknowledges understanding of instruction s. 16:19:59 Allens test performed on the right radial and ulnar artery. 16:20:02 Patient has been NPO for More than 6Hrs. 16:20:03 Skin Breakdown- none per pt 16:20:04 Patient Warmer Placed on the Table. 16:20:05 Adelso Prominences Protected 16:20:06 A # 20 IV was noted in the Hand (right). Grade = 0 16:20:06 A # 20 IV was noted in the Antecubital (left). Grade = 0 16:20:06 A # 20 IV was noted in the Antecubital (right). Grade = 0 16:20:07 Patient arrived on IV Solutions in Left Antecubital via Peripheral IV. Pump/Drip Flow using NaCl .9. 16:20:09 History and physical on the chart or being dictated. Assessment: Initial Case 16:20:09 Right Pulses: Shaw Ped=2, Femoral=2, Radial=2 Left Pulses: Shaw Ped=2, Femoral=2 16:20:30 Patient arrived on 4 l/min OXYGEN via Nasal. 16:28:09 Reference ECG taken Vitals capture started with the following parameters, Patient=Adult, Interval=5 min, Initial Pr doshrm=024 mmHg, 16:36:29 Deflation Rate=5 mmHg, Cuff placed on Left Arm 16:36:42 Right Radial and groin(s) prepped with 2% chlorhexidine, and draped after a 3 min. waiting time. 16:37:13 HR=99 bpm, QOZW=353/81 mmhg, SpO2=96.0 %, Resp=26 B/min 16:42:04 HR=89 bpm, ESCC=557/79 mmhg, SpO2=97.0 %, Resp=30 B/min 16:44:07 MD arrived. 16:47:05 HR=94 bpm, KRRC=218/77 mmhg, SpO2=94.0 %, Resp=27 B/min 16:48:22 1 mg VERSED given in lab by Karma Powers RN in Left Antecubital via Peripheral IV. Orde red by Reji Ramirez. 16:48:44 Pressure channel 1 zeroed. 16:49:50 50 mcg FENTANYL given in lab by Karma Powers, TIM in Left Antecubital via Peripheral IV. Ordered by Reji Ramirez. Time Out. Correct patient, correct procedure, correct physician, labs, allergies, and equipment verified with blender laborer 16:51:27 team present. Fire risk assesment completed (see hard stop sheet for coding). Time Out Conc urred by and individual staff in procedure. 16:52:06 HR=93 bpm, DWMB=393/77 mmhg, SpO2=94.0 %, Resp=30 B/min 16:53:53 Case Start 16:53:55 5 mL 1% XYLOCAINE given in lab by Reji Ramirez in Right Groin via Subcutaneous. 16:54:36 Access site was Right Femoral Vein. 16:54:49 A SHEATH, FR5.5 PRELUDE 11CM FR 5 was advanced into the Fem Vein (right) using the Percutan eous technique. 16:56:05 A CATHETER, FR5 SWAN JAME MONITOR FR 5 was inserted via Fem Vein (right) 16:57:05 HR=81 bpm, NLQI=749/82 mmhg, SpO2=96 %, Resp=27 B/min Recorded Pressure: RV, HR=85, Condition=Condition 1 16:57:06 (Right Ventricle) RV 44/2/8 Recorded Pressure: PCW, EE=453, Condition=Condition 1 16:59:14 (Pulmonary Capillary Wedge) PCW 15/15/7 Recorded Pressure: MPA, HR=98, Condition=Condition 1 16:59:48 (Main Pulmonary Artery) MPA 33/7/20 17:01:12 Saturation: Site=PA (Pulmonary Artery) , O2=55.5 %, Hgb=11.9 gm/dl, Condition=Condition 1. Used in calculation. 17:02:06 HR=93 bpm, WBEG=093/77 mmhg, SpO2=95.0 %, Resp=17 B/min Recorded Pressure: RA, HR=96, Condition=Condition 1 17:02:11 (Right Atrium) RA 5/2/0 17:03:10 [place] Jame Catheter Removed 17:03:18 5 mL 1% XYLOCAINE given in lab by Reji Ramirez in Right Radial via Subcutaneous. 17:05:09 Access site was Right Radial Artery . A SHEATH, FR6 TRANSRADIAL SLENDER 10CM FR 6 was advanced into the Fem Art (right) using the Per cutaneous 17:05:14 technique. 17:05:27 2.5 mg VERAPAMIL given in lab by Ramirez, Aalok in Right Radial via Intra-arterial. 17:06:01 1 mg VERSED given in lab by Karma Powers, RN in Left Antecubital via Peripheral IV. Orde red by Reji Ramirez. 17:07:05 25 mcg FENTANYL given in lab by Karma Powers, RN in Left Antecubital via Peripheral IV. Ordered by Reji Ramirez. 17:07:09 XC=735 bpm, CYBI=184/64 mmhg, SpO2=94.0 %, Resp=27 B/min A JR 4.0 DXTERITY CATHETER FR 5 was advanced over a wire. OMNIPAQUE, 350 MG, 150ML 150ML was us ed for 17:07:36 injections. Recorded Pressure: LV, OU=311, Condition=Condition 1 17:08:34 (Left Ventricle) LV 116/3/11 Recorded Pressure: LV, Ao, OE=050, Condition=Condition 1 17:09:00 (Left Ventricle) LV 113/1/10, (Aorta) Ao 109/59/80 Recorded Pressure: Ao, HR=98, Condition=Condition 1 17:09:34 (Aorta) Ao 106/63/83 17:10:30 The RCA was injected and visualized at various angles. OMNIPAQUE, 350 MG, 150ML 150ML used . 17:12:02 HR=99 bpm, WBZS=410/73 mmhg, SpO2=94.0 %, Resp=28 B/min 17:13:02 5000 units HEPARIN given in lab by Karma Powers, TIM in Left Antecubital via Peripheral I V. Ordered by Reji Ramirez. After removing the current catheter a JL 3.5 DXTERITY CATHETER FR 5 was advanced over a WIRE, E XCHANGE 260CM 17:13:15 3MMJ 260CM. 17:15:14 The LCA was injected and visualized at various angles. OMNIPAQUE, 350 MG, 150ML 150ML used . 17:17:05 JP=226 bpm, QGJR=173/70 mmhg, SpO2=98.0 %, Resp=27 B/min 17:19:50 Catheter was removed 17:20:18 Saturation: Site=Ao (Aorta) , O2=90.4 %, Hgb=11.9 gm/dl, Condition=Condition 1. Used in desiree culation. 17:22:06 YJ=337 bpm, JRGL=318/84 mmhg, SqC1=188 %, Resp=29 B/min 17:22:56 VASCADE, FR5 CLOSURE SYSTEM FR 5 placement in the Fem Vein (right) 17:25:08 Case End (Physician broke scrub) 17:27:03 Sterile dressing applied to site 17:27:03 No case complications noted. 17:27:09 HR=92 bpm, PCBZ=253/81 mmhg, SpO2=97.0 %, Resp=28 B/min 17:27:14 Cine recording checked. 17:27:26 Report called to floor. 17:27:29 Bedside Report will be given. 17:27:32 A Left and Right Heart Cath was performed. Radial Compression Device Used. 12 mLs of air placed in BAND, RADIAL COMPRESSION TR SHORT 24 24 CM. Affected 17:33:39 hand 95 % O2 saturation. 17:37:33 Patient moved to stretcher End Study - Contrast Media Used In Study Contrast Total Opened (mL) Total Used (mL) Total Wasted (mL) Omnipaque 40 40 0 End Study - Maximum Contrast Load Max Contrast Load (mL) 464.3 End Study - Radiation Exposure Fluoro Time (minutes) 4.6 End Study - Patient Disposition Complications Transferred To Interventional Outcome No Telemetry Bed No attempt made
--- NOTE | 2018-05-01 18:11 | MA ---
cc: Reji Ramirez MD DATE: 05/01/2018 DATE OF PROCEDURE: 05/01/2018 PREPROCEDURE DIAGNOSES: 1. Non-ST elevation myocardial infarction. 2. New onset systolic heart failure. POSTPROCEDURE DIAGNOSES: 1. Nonobstructive coronary artery disease. 2. Normal left-sided filling pressures. PROCEDURES PERFORMED: 1. Selective coronary angiography via the right radial artery. 2. Right heart catheterization via the right femoral vein. INDICATION FOR PROCEDURE: In brief, Ms. Duque presented with progressive worsening dyspnea and had an echo, which showed evidence of new onset systolic heart failure with questionable regional wall motion abnormalities. Subsequently, she was brought to the catheterization suite for further evaluation. Please see H and P for details. DESCRIPTION OF PROCEDURE: After discussion of risks, benefits, and alternatives, the patient informed consent, she was brought to the catheterization suite stable vital signs on today's date. She was sterilely prepped and draped in the usual fashion and sedated with IV fentanyl and midazolam and 1% lidocaine solution was used for local anesthesia and a 5-Kinyarwanda sheath was placed into the right femoral vein using a modified Seldinger technique. We then used a 5-Kinyarwanda [place] catheter to measure right-sided filling pressures. We subsequently turned our attention to the coronary angiogram. Using 1% lidocaine solution, we placed a 6-Kinyarwanda sheath into the right radial artery using modified Seldinger technique. A JR4 Dexterity catheter was used to engage the right coronary artery. Images were obtained after intracoronary contrast dye injection. This was then exchanged for a JL3.5, which was used to engage the left main coronary artery. Images were obtained after intracoronary contrast dye injection. FINDINGS: 1. Left main: The left main is a large caliber vessel that bifurcates into the left anterior descending and left circumflex artery. This vessel is angiographically free of any disease. There are minimal luminal irregularities. 2. Left circumflex: Left circumflex is a moderate caliber vessel that gives rise to multiple obtuse marginal branches. It is angiographically free of significant disease. There are minimal luminal irregularities. 3. Left anterior descending artery: The left anterior descending artery is a moderate caliber vessel that courses distally to wrap around the apex. It gives rise to multiple diagonal branches. There is a mild proximal lesion. Remainder of the vessel is angiographically free of disease. There is minimal luminal irregularities. RIGHT CORONARY ARTERY: Right coronary artery is a dominant vessel bifurcating to the posterior descending and posterolateral artery and is angiographically free of significant disease: HEMODYNAMICS: 1. LVEDP 10 mmHg. 2. Mean RA is 5 mmHg. 3. RV is 44/2/8. 4. Pulmonary artery is 33/7/20. 5. Pulmonary capillary wedge pressure is 15/15 with a mean of 7. 6. Cardiac index is 2.2. PROCEDURAL SUMMARY: 1. Nonobstructive coronary artery disease. 2. Normal filling pressures. PLAN: The patient will continue undergoing further workup for her dyspnea and altered mental status. Thank you for allowing me to participate in the care of Ms. Duque. Please feel free to contact us with any further questions regarding her care. MD DEBBY Queen/NAYELI , 05:50 PM , 05:58 PM
--- NOTE | 2018-05-01 18:55 | P.PNNEU ---
Subjective Subjective Comments: No acute events reported No sz. Active Medications: Active Medications Acetaminophen (Tylenol) 650 mg PO Q4H PRN PRN Reason: FEVER/HEADACHE Last Admin: 04/29/18 01:20 Dose: 650 mg Acyclovir (Zovirax) 400 mg PO DAILY [facility] Last Admin: 05/01/18 10:11 Dose: Not Given Albuterol (Duoneb Neb (Narda)) 1 ampul NEB Q6HR WHILE AWAKE NEB [facility] Last Admin: 05/01/18 13:25 Dose: Not Given Albuterol (Duoneb Neb (Prn)) 1 ampul NEB Q2HR NEB PRN PRN Reason: SHORTNESS OF BREATH/WHEEZING Albuterol (Duoneb Neb (Prn)) 1 ampul NEB Q4HR NEB PRN PRN Reason: DYSPNEA Aspirin (Ecotrin) 81 mg PO DAILY [facility] Last Admin: 05/01/18 10:06 Dose: 81 mg Bisacodyl (Dulcolax Supp) 10 mg RECTAL DAILY PRN PRN Reason: SEVERE CONSITIPATION Budesonide/Formoterol Fumarate (Symbicort 160/4.5 Mcg Inh) 2 puff INH BID [facility] Last Admin: 05/01/18 10:10 Dose: 2 puff Divalproex Sodium (Depakote Er) 500 mg PO HS [facility] Last Admin: 04/30/18 22:39 Dose: 500 mg Docusate Sodium (Colace) 100 mg PO BID [facility] Last Admin: 05/01/18 10:09 Dose: Not Given Estradiol (Estrace) 2 mg PO DAILY [facility] Last Admin: 05/01/18 10:09 Dose: Not Given Furosemide (Lasix Inj) 20 mg IV.PUSH DAILY [facility] Guaifenesin (Mucinex Er) 600 mg PO BID [facility] Last Admin: 05/01/18 10:09 Dose: Not Given Levofloxacin/Dextrose (Levaquin 750 Mg Premix Inj) 150 mls @ 100 mls/hr IV.SIG Q24H [facility] Last Admin: 05/01/18 18:18 Dose: 150 mls/hr Aztreonam 2 gm/ Sodium (Chloride) 100 mls @ 200 mls/hr IV.SIG Q8H [facility] Last Admin: 05/01/18 18:18 Dose: 100 mls/hr Metronidazole/Sodium Chloride (Flagyl 500 Mg Inj) 100 mls @ 100 mls/hr IV.SIG Q8H [facility] Last Infusion: 05/01/18 16:36 Dose: Infused Levetiracetam 500 mg/ Sodium (Chloride) 105 mls @ 420 mls/hr IV.SIG Q12H [facility] Last Infusion: 05/01/18 07:18 Dose: Infused Acetaminophen (Ofirmev Inj) 1,000 mg in 100 mls @ 400 mls/hr IV.SIG Q8H PRN PRN Reason: PAIN 1 TO 10/FEVER > 100.5 Magnesium Sulfate Inj 4 gm/ (Sodium Chloride) 100 mls @ 50 mls/hr IV.SIG UNSCH PRN PRN Reason: For Magnesium 0.9 - 1.1 mg/dL Magnesium Sulfate Inj 2 gm/ (Sodium Chloride) 100 mls @ 50 mls/hr IV.SIG UNSCH PRN PRN Reason: For Magnesium 1.2 - 1.6 mg/dL Potassium Chloride (Kcl 40 Meq Premix Inj) 40 meq in 100 mls @ 25 mls/hr IV.SIG Q2H PRN PRN Reason: For Potassium 2.8 - 3.2 mEq/L Potassium Chloride (Kcl 20 Meq Premix Inj) 20 meq in 100 mls @ 50 mls/hr IV.SIG Q2H PRN PRN Reason: For Potassium 3.3 - 3.5 mEq/L Potassium Chloride (Kcl 40 Meq Premix Inj) 40 meq in 100 mls @ 25 mls/hr IV.SIG UNSCH PRN PRN Reason: For Potassium 3.3 - 3.5 mEq/L Potassium Phosphate 30 mmol/ (Sodium Chloride) 260 mls @ 42 mls/hr IV.SIG UNSCH PRN PRN Reason: SEE LABEL COMMENTS Sodium Phosphate 30 mmol/ (Sodium Chloride) 260 mls @ 42 mls/hr IV.SIG UNSCH PRN PRN Reason: For Phosphorus < 2.5 mg/dL Potassium Chloride (Kcl 20 Meq Premix Inj) 20 meq in 100 mls @ 50 mls/hr IV.SIG Q2H PRN PRN Reason: For Potassium 2.8 - 3.2 mEq/L Last Infusion: 05/01/18 16:36 Dose: Infused Ipratropium [place] (Atrovent Neb) 0.5 mg INH Q6HR NEB PRN PRN Reason: Shortness Of Breath Levothyroxine Sodium (Synthroid) 75 mcg PO DAILY@0600 [facility] Last Admin: 05/01/18 06:37 Dose: Not Given Magnesium Oxide (Mag-Ox) 800 mg PO UNSCH PRN PRN Reason: For Magnesium 1.2 - 1.6 mg/dL Methylprednisolone Sodium Succinate (Solumedrol Inj) 40 mg IV.PUSH Q12HR [facility] Montelukast Sodium (Singulair) 10 mg PO DAILY [facility] Last Admin: 05/01/18 10:10 Dose: Not Given Multivitamins (Theragran) 1 tab PO DAILY [facility] Last Admin: 05/01/18 10:10 Dose: Not Given Nitroglycerin (Nitrostat Sl) 0.4 mg SL Q5M PRN PRN Reason: CHEST PAIN 1-10 Last Admin: 05/01/18 08:58 Dose: 0.4 mg Pantoprazole Sodium (Protonix Inj) 40 mg IV.PUSH Q12H [facility] Last Admin: 05/01/18 18:17 Dose: 40 mg Pt:Cyclosporine Opth (Elenita) 0 each EACH EYE Q12H [facility] Last Admin: 04/30/18 00:24 Dose: Not Given Pt:Lactobacillus (Combo #4) 0 each PO DAILY [facility] Last Admin: 04/30/18 00:25 Dose: Not Given Potassium Bicarb/Potassium Chloride (K-Lyte Cl Eff) 50 meq PO UNSCH PRN PRN Reason: For Potassium 3.3 - 3.5 mEq/L Potassium Chloride (K-Dur) 20 meq PO DAILY [facility] Last Admin: 05/01/18 10:09 Dose: Not Given Potassium Phosphate (K-Phos Original) 2,000 mg PO Q4H PRN PRN Reason: Phosphorus Less Than 2.5 mg/dL Potassium Phosphate (K-Phos Original) 2,000 mg PO UNSCH PRN PRN Reason: SEE LABEL COMMENTS Promethazine HCl (Phenergan Inj) 12.5 mg IM Q6H PRN PRN Reason: NAUSEA Last Admin: 05/01/18 02:55 Dose: 12.5 mg Psyllium Hydrophilic Mucilloid (Metamucil Smooth Texture Sf/Gf Pkt) 0 packet PO BID [facility] Last Admin: 05/01/18 10:09 Dose: Not Given Sennosides (Senokot) 17.2 mg PO Q12H PRN PRN Reason: Moderate Constipation Sodium Chloride (Ns Flush) 2 ml IV.FLUSH PRN PRN PRN Reason: FLUSH AFTER USING IV ACCESS Last Admin: 04/27/18 21:37 Dose: 2 ml Sodium Chloride (Ns Flush) 2 ml IV.FLUSH BID [facility] Sodium Chloride (Ns Flush) 2 ml IV.FLUSH PRN PRN PRN Reason: FLUSH AFTER USING IV ACCESS Allergies/Adverse Reactions: Allergies Allergy/AdvReac Type Severity Reaction Status Date / Time penicillin G Allergy Severe hives Verified 04/27/18 14:10 Sulfa (Sulfonamide Allergy Severe hives Verified 04/27/18 14:10 Antibiotics) latex Allergy Intermediate rash Verified 04/27/18 14:10 piroxicam Allergy Unknown Hives Verified 04/27/18 14:10 cyclobenzaprine AdvReac Intermediate PAU Verified 04/27/18 14:10 hydroxyzine AdvReac Unknown Hives Verified 04/27/18 14:10 Physical Exam Vital signs: Vital Signs 04/30/18 19:00 04/30/18 21:16 04/30/18 21:42 Temperature 99.3 F Pulse Rate 81 87 Respiratory Rate 20 20 Blood Pressure 114/70 Pulse Oximetry 95 04/30/18 23:00 05/01/18 03:00 05/01/18 07:00 Temperature 97.4 F L 98.4 F 98.6 F Pulse Rate 88 83 82 Respiratory Rate 20 20 20 Blood Pressure 128/71 137/76 114/55 L Pulse Oximetry 97 05/01/18 08:07 05/01/18 11:00 05/01/18 15:00 Temperature 98.5 F 98.4 F Pulse Rate 91 H 74 77 Respiratory Rate 18 18 18 Blood Pressure 118/51 L 116/56 L Pulse Oximetry 95 97 97 Intake & Output 04/30/18 05/01/18 05/01/18 18:59 06:59 18:59 Intake Total 455 / 455 120 / 120 855 / 855 Output Total 350 / 350 825 / 825 Balance 105 / 105 -705 / -705 855 / 855 Weight 65 kg Intake: IV 455 / 455 100 / 100 755 / 755 Heparin/NS PF Inj 1,000 ML @ 0 10 / 10 mls/hr .ROUTE .[facility] Rx#: [id number] Heparin/D5W 25,000 U/250 mL 25, 40 / 40 000 unit In 250 ml @ 800 UNITS/ HR 8 mls/hr IV.CONT TITRATE PRN Rx#:[id number] Azactam Inj 2 GM In NS Inj 100 100 / 100 200 / 200 ML @ 200 mls/hr IV.SIG Q8H [facility] Rx#:[id number] Levaquin 750 mg Premix Inj 150 150 / 150 ML @ 100 mls/hr IV.SIG Q24H [facility] Rx#:[id number] KCl 20 mEq Premix Inj 20 meq In 200 / 200 100 ml @ 50 mls/hr IV.SIG Q2H PRN Rx#:[id number] Keppra Inj 500 MG In NS Inj 100 105 / 105 105 / 105 ML @ 420 mls/hr IV.SIG Q12H [facility] Rx#:[id number] Flagyl 500 MG Inj 100 ML @ 100 100 / 100 100 / 100 200 / 200 mls/hr IV.SIG Q8H [facility] Rx#: [id number] Oral 20 / 20 Anesthesia Amount 100 / 100 Output: Urine Amount (Catheter) 350 / 350 825 / 825 Indwelling Urethral Catheter 350 / 350 825 / 825 Other: Date of Last Bowel Movement 04/30/18 05/01/18 05/01/18 - Routine Neurological Exam alert, follow commands. speech is fluent Cn intact MOTOR no focal deficits - Urinary Catheter Management Straight Cath placed during this visit: yes Reason for continuing: Hourly intake/output Insertion date: 04/27/18 Insertion time: 16:10 Indwelling Urethral Catheter Cath placed during this visit: yes Reason for continuing: Hourly intake/output Insertion date: 04/27/18 Objective Laboratory Results - last 24 hr 04/30/18 05/01/18 05/01/18 19:45 03:41 03:41 WBC 21.6 H RBC 3.48 L Hgb 11.9 Hct 34.5 L MCV 99.2 MCH 34.1 H MCHC 34.4 RDW 12.8 Plt Count 245 MPV 9.2 Neut % (Auto) 94.5 H Lymph % (Auto) 3.2 L Gar[place] % (Auto) 2.2 Eos % (Auto) 0.0 Baso % (Auto) 0.1 Neut # (Auto) 20.4 H Lymph # (Auto) 0.7 L [place] # (Auto) 0.5 Eos # (Auto) 0.0 Baso # (Auto) 0.0 WBC Differential . Differential Comment Auto diff final APTT Sodium 134 L Potassium 2.9 L* D Chloride 98 Carbon Dioxide 25.7 Anion Gap 10 BUN 17 Creatinine 0.78 Estimated GFR 73 L Random Glucose 139 H Calcium 8.2 L Phosphorus 3.1 Total Creatine Kinase 209 H CK-MB (CK-2) 7.2 H CK-MB (CK-2) % 3.4 Troponin I 0.35 H D 0.24 H D Albumin 2.5 L 05/01/18 05/01/18 05/01/18 03:41 05:05 15:43 WBC RBC Hgb Hct MCV MCH MCHC RDW Plt Count MPV Neut % (Auto) Lymph % (Auto) Garland % (Auto) Eos % (Auto) Baso % (Auto) Neut # (Auto) Lymph # (Auto) [place] # (Auto) Eos # (Auto) Baso # (Auto) WBC Differential Differential Comment APTT 169.7 H* D 82.6 H D 29.1 D Sodium Potassium Chloride Carbon Dioxide Anion Gap BUN Creatinine Estimated GFR Random Glucose Calcium Phosphorus Total Creatine Kinase CK-MB (CK-2) CK-MB (CK-2) % Troponin I Albumin Microbiology 04/28/18 17:00 Aerobic Blood Culture - Preliminary Blood - Peripheral No growth in 3 days Anaerobic Blood Culture - Preliminary No growth in 3 days 04/28/18 16:55 Aerobic Blood Culture - Final Blood - Peripheral Beta Streptococcus Group C Anaerobic Blood Culture - Preliminary No growth in 3 days Review/Management - Diagnosis (1) Seizure Code(s): R56.9 - Unspecified convulsions Status: Acute Current Visit: Yes - Review/Management Plan: continue mirna unable to have mri due to spinal stimulator
--- NOTE | 2018-05-01 19:03 | P.PNPL ---
Subjective Interval history: 72 YOWF with Br asthma, COPD, Bipolar disorder, AMS Stroke alert was called While pt was lying flat, aspirated Became sob Tr to CVICU On Levaquin,Flagyl and Azactem Weaned to 5LNC Congested, not able to expactorate. Physical Exam Vital signs: Vital Signs 04/30/18 21:16 04/30/18 21:42 04/30/18 23:00 Temperature 97.4 F L Pulse Rate 87 88 Respiratory Rate 20 20 Blood Pressure 128/71 Pulse Oximetry 95 05/01/18 03:00 05/01/18 07:00 05/01/18 08:07 Temperature 98.4 F 98.6 F Pulse Rate 83 82 91 H Respiratory Rate 20 20 18 Blood Pressure 137/76 114/55 L Pulse Oximetry 97 95 05/01/18 11:00 05/01/18 15:00 Temperature 98.5 F 98.4 F Pulse Rate 74 77 Respiratory Rate 18 18 Blood Pressure 118/51 L 116/56 L Pulse Oximetry 97 97 Intake & Output 05/01/18 05/01/18 05/02/18 06:59 18:59 06:59 Intake Total 120 / 120 855 / 855 Output Total 825 / 825 Balance -705 / -705 855 / 855 Weight 65 kg Intake: IV 100 / 100 755 / 755 Heparin/NS PF Inj 1,000 ML @ 0 10 / 10 mls/hr .ROUTE .[facility] Rx#: [id number] Heparin/D5W 25,000 U/250 mL 25, 40 / 40 000 unit In 250 ml @ 800 UNITS/ HR 8 mls/hr IV.CONT TITRATE PRN Rx#:[id number] Azactam Inj 2 GM In NS Inj 100 200 / 200 ML @ 200 mls/hr IV.SIG Q8H [facility] Rx#:[id number] KCl 20 mEq Premix Inj 20 meq In 200 / 200 100 ml @ 50 mls/hr IV.SIG Q2H PRN Rx#:[id number] Keppra Inj 500 MG In NS Inj 100 105 / 105 ML @ 420 mls/hr IV.SIG Q12H [facility] Rx#:[id number] Flagyl 500 MG Inj 100 ML @ 100 100 / 100 200 / 200 mls/hr IV.SIG Q8H [facility] Rx#: [id number] Oral 20 / 20 Anesthesia Amount 100 / 100 Output: Urine Amount (Catheter) 825 / 825 Indwelling Urethral Catheter 825 / 825 Other: Date of Last Bowel Movement 05/01/18 05/01/18 GENERAL: Anxious elderlyWF,mild sob SKIN: Warm and dry. HEAD: Normocephalic. EYES: No scleral icterus. No injection or drainage. NECK: Supple, trachea midline. No JVD or lymphadenopathy. CARDIOVASCULAR: Regular rate and rhythm without murmurs, gallops, or rubs. RESPIRATORY: Breath sounds equal bilaterally. No accessory muscle use. Scattered rhonchi GASTROINTESTINAL: Abdomen soft, non-tender, nondistended. MUSCULOSKELETAL: No cyanosis, or edema. BACK: Nontender without obvious deformity. No CVA tenderness. - Urinary Catheter Management Straight Cath placed during this visit: yes Reason for continuing: Hourly intake/output Insertion date: 04/27/18 Insertion time: 16:10 Indwelling Urethral Catheter Cath placed during this visit: yes Reason for continuing: Hourly intake/output Insertion date: 04/27/18 Assessment and Plan - Plan IMPRESSION: 1. Pulmonary edema is significantly better. 2. COPD/bronchial asthma. 3. Altered mental status is improving. 4. Chronic pain. 5. Congestive heart failure. 6. Bipolar disorder. 7. Resp failure 7. Aspiration PLAN: Supplement 02 with NC Cont Abx If declines, will need intubation Aerosol nebs Symbicort 2 puffs bid Use Acapella
[2018-05-01] MEDS: Divalproex 500 MG ER Tablet PO SCH (20:19)
--- NOTE | 2018-05-01 22:35 | ECG ---
Date Performed: 04/30/2018 Time Performed: 17:00:30 PTAGE: 72 years EKG: Sinus rhythm Possible left atrial abnormality LVH with secondary repolarization abnormality Anterolateral ST-T ch anges may be due to hypertrophy and/or ischemia Abnormal ECG NO PREVIOUS TRACING DOCTOR: Jose Alberto Deleon Interpretating Date/Time 05/01/2018 22:30:55
--- NOTE | 2018-05-01 22:42 | ECG ---
Date Performed: 04/30/2018 Time Performed: 13:15:18 PTAGE: 72 years EKG: Sinus tachycardia. Possible left atrial abnormality LVH with secondary repolarization abnor mality Anterolateral ST-T changes are probably due to ventricular hypertrophy Abnormal ECG NO PREVIOUS TRACING DOCTOR: Jose Alberto Deleon Interpretating Date/Time 05/01/2018 22:40:48
--- NOTE | 2018-05-01 23:57 | P.CONID ---
History of Present Illness Service: ID Consult date: 05/01/18 Requesting Physician: Cesar Corrales Reason for Consult: pneumonia Primary Care Provider: UNKNOWN Chief Complaint: Altered mental status History of Present Illness: Pt was seen around 1930 on May 01 in rm [id number] she is sp cardiac cath 72 yo female developped new onset seizure Pt was admitted 3 days ago with mental status change She also has cough and CXR showed infiltrates with infiltrates progression over 24 hrs Pt has h/o asthma Aspiration PNA was suspected Her 2 D echo showed severely reduced function and moderate aortic regurgitation Low grade fever of 100.2 noted one time Yday pt had cardiac cath that was negative Pt has h/o PCN allergy and her abx included levaquine, azactam and flagyl Pts blood clx are positive for Group C streptococcus 1/4 clx On presentation pt has 7500 WBC and now her WBC are 23 K. SHe is on IV Solumedrol Review of Systems All other systems reviewed negative except as stated in HPI PMFSH - History History Provided By: Patient, Family Member - Medical History Medical History: Medical History (Last Updated 05/02/18 @ 05:54 by Sandy Casey MD) Atrial fibrillation (Acute) Atrial fibrillation (Acute) COPD (chronic obstructive pulmonary disease) (Acute) Spinal cord stimulator status (Acute) Back pain (Acute) Asthma (Acute) - Surgical History Surgical History: Surgical History (Last Reviewed 05/02/18 @ 05:54 by Sandy Casey MD) Hx of tonsillectomy (Acute) - Family History Family History: Family History (Last Reviewed 05/23/18 @ 12:29 by Piper Stevenson) Other Patient denies medical problems - Social History I have reviewed the patient's Social History: Yes - Tobacco History Second Hand Smoke Exposure: No Smoking Status: Never smoker - Alcohol History How Often Do You Have a Drink Containing Alcohol: Never - Substance Use History Substance History: No History of Abuse - Travel History Recent Travel in the [place] Within the Last 8 Weeks: No Recent Travel Out of the Country Within the Last 8 Weeks: No - Immunization History Tetanus Immunization: Unsure Hx Influenza Vaccine This Season: Yes Medications and Allergies Active Medications: Active Medications Acetaminophen (Tylenol) 650 mg PO Q4H PRN PRN Reason: FEVER/HEADACHE Last Admin: 04/29/18 01:20 Dose: 650 mg Acyclovir (Zovirax) 400 mg PO DAILY [facility] Last Admin: 05/01/18 10:11 Dose: Not Given Albuterol (Duoneb Neb (Narda)) 1 ampul NEB Q6HR WHILE AWAKE NEB [facility] Last Admin: 05/01/18 13:25 Dose: Not Given Albuterol (Duoneb Neb (Prn)) 1 ampul NEB Q2HR NEB PRN PRN Reason: SHORTNESS OF BREATH/WHEEZING Albuterol (Duoneb Neb (Prn)) 1 ampul NEB Q4HR NEB PRN PRN Reason: DYSPNEA Aspirin (Ecotrin) 81 mg PO DAILY [facility] Last Admin: 05/01/18 10:06 Dose: 81 mg Bisacodyl (Dulcolax Supp) 10 mg RECTAL DAILY PRN PRN Reason: SEVERE CONSITIPATION Budesonide/Formoterol Fumarate (Symbicort 160/4.5 Mcg Inh) 2 puff INH BID [facility] Last Admin: 05/01/18 20:25 Dose: 2 puff Divalproex Sodium (Depakote Er) 500 mg PO HS [facility] Last Admin: 05/01/18 20:19 Dose: 500 mg Docusate Sodium (Colace) 100 mg PO BID [facility] Last Admin: 05/01/18 22:40 Dose: 100 mg Estradiol (Estrace) 2 mg PO DAILY [facility] Last Admin: 05/01/18 10:09 Dose: Not Given Furosemide (Lasix Inj) 20 mg IV.PUSH DAILY [facility] Guaifenesin (Mucinex Er) 600 mg PO BID [facility] Last Admin: 05/01/18 20:20 Dose: 600 mg Levofloxacin/Dextrose (Levaquin 750 Mg Premix Inj) 150 mls @ 100 mls/hr IV.SIG Q24H [facility] Last Admin: 05/01/18 18:18 Dose: 150 mls/hr Aztreonam 2 gm/ Sodium (Chloride) 100 mls @ 200 mls/hr IV.SIG Q8H [facility] Last Infusion: 05/01/18 19:30 Dose: Infused Metronidazole/Sodium Chloride (Flagyl 500 Mg Inj) 100 mls @ 100 mls/hr IV.SIG Q8H [facility] Last Admin: 05/01/18 23:55 Dose: 100 mls/hr Levetiracetam 500 mg/ Sodium (Chloride) 105 mls @ 420 mls/hr IV.SIG Q12H [facility] Last Infusion: 05/01/18 21:10 Dose: Infused Acetaminophen (Ofirmev Inj) 1,000 mg in 100 mls @ 400 mls/hr IV.SIG Q8H PRN PRN Reason: PAIN 1 TO 10/FEVER > 100.5 Magnesium Sulfate Inj 4 gm/ (Sodium Chloride) 100 mls @ 50 mls/hr IV.SIG UNSCH PRN PRN Reason: For Magnesium 0.9 - 1.1 mg/dL Magnesium Sulfate Inj 2 gm/ (Sodium Chloride) 100 mls @ 50 mls/hr IV.SIG UNSCH PRN PRN Reason: For Magnesium 1.2 - 1.6 mg/dL Potassium Chloride (Kcl 40 Meq Premix Inj) 40 meq in 100 mls @ 25 mls/hr IV.SIG Q2H PRN PRN Reason: For Potassium 2.8 - 3.2 mEq/L Potassium Chloride (Kcl 20 Meq Premix Inj) 20 meq in 100 mls @ 50 mls/hr IV.SIG Q2H PRN PRN Reason: For Potassium 3.3 - 3.5 mEq/L Potassium Chloride (Kcl 40 Meq Premix Inj) 40 meq in 100 mls @ 25 mls/hr IV.SIG UNSCH PRN PRN Reason: For Potassium 3.3 - 3.5 mEq/L Potassium Phosphate 30 mmol/ (Sodium Chloride) 260 mls @ 42 mls/hr IV.SIG UNSCH PRN PRN Reason: SEE LABEL COMMENTS Sodium Phosphate 30 mmol/ (Sodium Chloride) 260 mls @ 42 mls/hr IV.SIG UNSCH PRN PRN Reason: For Phosphorus < 2.5 mg/dL Potassium Chloride (Kcl 20 Meq Premix Inj) 20 meq in 100 mls @ 50 mls/hr IV.SIG Q2H PRN PRN Reason: For Potassium 2.8 - 3.2 mEq/L Last Infusion: 05/01/18 16:36 Dose: Infused Ipratropium Saco (Atrovent Neb) 0.5 mg INH Q6HR NEB PRN PRN Reason: Shortness Of Breath Levothyroxine Sodium (Synthroid) 75 mcg PO DAILY@0600 [facility] Last Admin: 05/01/18 06:37 Dose: Not Given Magnesium Oxide (Mag-Ox) 800 mg PO UNSCH PRN PRN Reason: For Magnesium 1.2 - 1.6 mg/dL Methylprednisolone Sodium Succinate (Solumedrol Inj) 40 mg IV.PUSH Q12HR [facility] Last Admin: 05/01/18 20:24 Dose: 40 mg Montelukast Sodium (Singulair) 10 mg PO DAILY [facility] Last Admin: 05/01/18 10:10 Dose: Not Given Multivitamins (Theragran) 1 tab PO DAILY [facility] Last Admin: 05/01/18 10:10 Dose: Not Given Nitroglycerin (Nitrostat Sl) 0.4 mg SL Q5M PRN PRN Reason: CHEST PAIN 1-10 Last Admin: 05/01/18 08:58 Dose: 0.4 mg Pantoprazole Sodium (Protonix Inj) 40 mg IV.PUSH Q12H [facility] Last Admin: 05/01/18 18:17 Dose: 40 mg Pt:Cyclosporine Opth (Elenita) 0 each EACH EYE Q12H [facility] Last Admin: 04/30/18 00:24 Dose: Not Given Pt:Lactobacillus (Combo #4) 0 each PO DAILY [facility] Last Admin: 04/30/18 00:25 Dose: Not Given Potassium Bicarb/Potassium Chloride (K-Lyte Cl Eff) 50 meq PO UNSCH PRN PRN Reason: For Potassium 3.3 - 3.5 mEq/L Potassium Chloride (K-Dur) 20 meq PO DAILY [facility] Last Admin: 05/01/18 10:09 Dose: Not Given Potassium Phosphate (K-Phos Original) 2,000 mg PO Q4H PRN PRN Reason: Phosphorus Less Than 2.5 mg/dL Potassium Phosphate (K-Phos Original) 2,000 mg PO UNSCH PRN PRN Reason: SEE LABEL COMMENTS Promethazine HCl (Phenergan Inj) 12.5 mg IM Q6H PRN PRN Reason: NAUSEA Last Admin: 05/01/18 02:55 Dose: 12.5 mg Psyllium Hydrophilic Mucilloid (Metamucil Smooth Texture Sf/Gf Pkt) 0 packet PO BID [facility] Last Admin: 05/01/18 20:20 Dose: 1 packet Sennosides (Senokot) 17.2 mg PO Q12H PRN PRN Reason: Moderate Constipation Sodium Chloride (Ns Flush) 2 ml IV.FLUSH PRN PRN PRN Reason: FLUSH AFTER USING IV ACCESS Last Admin: 04/27/18 21:37 Dose: 2 ml Sodium Chloride (Ns Flush) 2 ml IV.FLUSH BID [facility] Last Admin: 05/01/18 20:20 Dose: 2 ml Sodium Chloride (Ns Flush) 2 ml IV.FLUSH PRN PRN PRN Reason: FLUSH AFTER USING IV ACCESS Allergies Allergy/AdvReac Type Severity Reaction Status Date / Time penicillin G Allergy Severe hives Verified 04/27/18 14:10 Sulfa (Sulfonamide Allergy Severe hives Verified 04/27/18 14:10 Antibiotics) latex Allergy Intermediate rash Verified 04/27/18 14:10 piroxicam Allergy Unknown Hives Verified 04/27/18 14:10 cyclobenzaprine AdvReac Intermediate PAU Verified 04/27/18 14:10 hydroxyzine AdvReac Unknown Hives Verified 04/27/18 14:10 Exam Vital signs: Vital Signs 05/01/18 03:00 05/01/18 07:00 05/01/18 08:07 Temperature 98.4 F 98.6 F Pulse Rate 83 82 91 H Respiratory Rate 20 20 18 Blood Pressure 137/76 114/55 L Pulse Oximetry 97 95 05/01/18 11:00 05/01/18 15:00 05/01/18 22:38 Temperature 98.5 F 98.4 F Pulse Rate 74 77 Respiratory Rate 18 18 Blood Pressure 118/51 L 116/56 L Pulse Oximetry 97 97 94 L Intake & Output 05/01/18 05/01/18 05/02/18 06:59 18:59 06:59 Intake Total 120 / 120 855 / 855 205 / 205 Output Total 825 / 825 375 / 375 Balance -705 / -705 855 / 855 -170 / -170 Weight 65 kg Intake: IV 100 / 100 755 / 755 205 / 205 Heparin/NS PF Inj 1,000 ML @ 0 10 / 10 mls/hr .ROUTE .STK-MED ONE Rx#: [id number] Heparin/D5W 25,000 U/250 mL 25, 40 / 40 000 unit In 250 ml @ 800 UNITS/ HR 8 mls/hr IV.CONT TITRATE PRN Rx#:[id number] Azactam Inj 2 GM In NS Inj 100 200 / 200 100 / 100 ML @ 200 mls/hr IV.SIG Q8H [facility] Rx#:[id number] KCl 20 mEq Premix Inj 20 meq In 200 / 200 100 ml @ 50 mls/hr IV.SIG Q2H PRN Rx#:[id number] Keppra Inj 500 MG In NS Inj 100 105 / 105 105 / 105 ML @ 420 mls/hr IV.SIG Q12H [facility] Rx#:[id number] Flagyl 500 MG Inj 100 ML @ 100 100 / 100 200 / 200 mls/hr IV.SIG Q8H [facility] Rx#: [id number] Oral 20 / 20 Anesthesia Amount 100 / 100 Output: Urine Amount (Catheter) 825 / 825 375 / 375 Indwelling Urethral Catheter 825 / 825 375 / 375 Other: Date of Last Bowel Movement 05/01/18 05/01/18 - Constitutional no acute distress, average body habitus - Routine HEENT Exam Head: Present: normocephalic, atraumatic Eye: Present: EOMI, PERRL ENT: Present: mucous membranes moist, oropharynx clear - Routine Neck Exam Present: supple, full ROM - Routine Respiratory Exam Present: rhonchi (diffuse b/l good effort, ineffective cough) - Routine Cardiovascular Exam Present: RRR, S1, S2 Comments: no murmurs rubs or gallops - Routine Extremities Exam Comments: no cyanosis, no clubbing, no edema - Routine Skin Exam Present: intact, dry, warm Comments: no rash - Routine Neurological Exam Present: alert, oriented X3, moving all extremities, vision grossly intact, hearing grossly intact - Routine Psychiatric Exam Present: normal affect, normal thought process, cooperative Results - Labs CBC & Chem 7: 05/07/18 03:23 05/07/18 03:23 Labs: Laboratory Results - last 24 hr 05/01/18 05/01/18 05/01/18 03:41 03:41 03:41 WBC 21.6 H RBC 3.48 L Hgb 11.9 Hct 34.5 L MCV 99.2 MCH 34.1 H MCHC 34.4 RDW 12.8 Plt Count 245 MPV 9.2 Neut % (Auto) 94.5 H Lymph % (Auto) 3.2 L Graham % (Auto) 2.2 Eos % (Auto) 0.0 Baso % (Auto) 0.1 Neut # (Auto) 20.4 H Lymph # (Auto) 0.7 L Graham # (Auto) 0.5 Eos # (Auto) 0.0 Baso # (Auto) 0.0 WBC Differential . Differential Comment Auto diff final APTT 169.7 H* D Sodium 134 L Potassium 2.9 L* D Chloride 98 Carbon Dioxide 25.7 Anion Gap 10 BUN 17 Creatinine 0.78 Estimated GFR 73 L Random Glucose 139 H Calcium 8.2 L Phosphorus 3.1 Troponin I 0.24 H D Albumin 2.5 L 05/01/18 05/01/18 05:05 15:43 WBC RBC Hgb Hct MCV MCH MCHC RDW Plt Count MPV Neut % (Auto) Lymph % (Auto) Graham % (Auto) Eos % (Auto) Baso % (Auto) Neut # (Auto) Lymph # (Auto) Graham # (Auto) Eos # (Auto) Baso # (Auto) WBC Differential Differential Comment APTT 82.6 H D 29.1 D Sodium Potassium Chloride Carbon Dioxide Anion Gap BUN Creatinine Estimated GFR Random Glucose Calcium Phosphorus Troponin I Albumin - Imaging Head CT 04/27/18 14:11 CONCLUSION: 1. No acute intracranial abnormalities. . Chest X-Ray 04/27/18 15:20 CONCLUSION: Mild congestive heart failure. Trace pleural fluid. Chest X-Ray 04/28/18 00:00 CONCLUSION: Improved lung exam. Chest X-Ray 04/29/18 06:00 CONCLUSION: Bibasilar airspace disease Head CTA 04/30/18 00:00 CONCLUSION: 1. No evidence of intraluminal filling defects or steno-occlusive disease. 2. Unremarkable anterior and posterior intracranial circulation 3. No evidence of extracranial carotid or vertebral steno-occlusive disease. Neck CTA 04/30/18 00:00 CONCLUSION: 1. No carotid stenosis. 2. Bilateral upper lobe patchy lung densities. Head CT 04/30/18 11:41 CONCLUSION: 1. No acute intracranial abnormalities. Report was called by [ Dr. Joseph to Dr. Mccarty at 11:57 AM] Chest X-Ray 04/30/18 12:56 CONCLUSION: Cardiomegaly with bilateral mostly basilar and perihilar airspace disease. Differential diagnosis includes aspiration and pneumonia as well as some pulmonary edema. Chest X-Ray 05/02/18 03:56 CONCLUSION: Overall progression of airspace disease. Assessment and Plan - Plan sp new onset seizure Aspiration PNA Group C strep bacteremia, low grade, probably PNA source is likely PNA cont levaquine, azactam, flagyl will add vancomycin for now fu repeat blood clx IDRIS if recurent bacteremia with same isolate fu sputum clx further rec's per clx
[2018-05-02 00:02] LABS: Calcium 8.6 mg/dL (8.5-10.1); Carbon Dioxide 21.8 meq/L (21.0-32.0); Magnesium 1.8 mg/dL (1.5-2.5); Phosphorus 2.1 mg/dL (2.5-4.9); Potassium 4.1 meq/L (3.5-5.1)
[2018-05-02] MEDS ORDERED: Melatonin 5 MG Tablet PO ONE (01:16)
[2018-05-02] MEDS: Aztreonam Inj 2 GM in Sodium Chloride 0.9% Inj 100 ML IV.SIG SCH ×3 (02:32→18:22)
--- NOTE | 2018-05-02 04:36 | XR ---
EXAM DATE: 05/02/2018 4:32 AM EDT AGE/SEX: 72 years / Female INDICATIONS: Shortness of breath, possible pulmonary disease. CLINICAL DATA: This is the patient's subsequent encounter. Patient reports that signs and symptoms h ave been present for 4 - 6 days and indicates a pain score of Nonresponsive. MEDICAL/SURGICAL HISTORY: . Chronic obstructive pulmonary disease. Asthma. Cardiovascular disea se None. COMPARISON: C, CHEST 1V SINGLE AP, 04/30/2018. . FINDINGS: There is bilateral airspace disease identified including a new broad area of consolidation in the rig ht upper lobe, left suprahilar region and left lower lobe. Slight improved aeration of the right lowe r lobe is seen. Cardiomegaly is noted. Osseous structures are intact. Spinal stimulator lead and EKG leads are noted. CONCLUSION: Overall progression of airspace disease. Electronically signed by: Loc Brooks MD 05/02/2018 4:34 AM EDT
[2018-05-02 04:41] LABS: Hematocrit 32.1 % (35.0-46.0); Hemoglobin 11.2 gm/dL (11.6-15.3); Lymph # (Auto) 0.9 th/mm3 (1.0-4.8); Lymph % (Auto) 3.8 % (9.0-44.0); Mean Corpuscular HGB Conc 34.7 % (32.0-36.0); Mean Corpuscular Hemoglobin 34.6 pg (27.0-34.0); Mean Corpuscular Volume 99.6 fL (80.0-100.0); Mean Platelet Volume 9.7 fL (7.0-11.0); Mono # (Auto) 1.1 th/mm3 (0.0-0.9); Mono % (Auto) 4.7 % (0.0-8.0); Neut # (Auto) 21.3 th/mm3 (1.8-7.7); Neut % (Auto) 91.5 % (16.0-70.0); Platelet Count 279 th/mm3 (150-450); Red Blood Count 3.23 mil/mm3 (4.00-5.30); Red Cell Distribution Width 12.9 % (11.6-17.2); White Blood Count 23.3 th/mm3 (4.0-11.0)
[2018-05-02 04:53] LABS: ABG Base Excess -8.1 mmol/L (-2-2); ABG PCO2 30 mmHg (38-42); ABG PO2 106 mmHG (61-120)
[2018-05-02] MEDS ORDERED: Dexmedetomidine Inj 200 MCG in Sodium Chlor 0.9% Inj 48 ML IV.CONT PRN (05:16)
[2018-05-02] MEDS ORDERED: Vancomycin Consult Pharmacy 1 EACH OTHER SCH (06:00)
[2018-05-02] MEDS ORDERED: Vancomycin Inj 1,000 MG in Sodium Chlor 0.9% Inj 250 ML IV.SIG ONE (06:00)
[2018-05-02] MEDS: SODIUM CHLOR 0.9% IV.SIG SCH ×2 (06:12→18:14)
[2018-05-02] MEDS: LEVETIRACETAM IV.SIG SCH ×2 (06:12→18:14)
[2018-05-02] MEDS: Levothyroxine 75 MCG Tablet PO SCH (06:14)
[2018-05-02] MEDS: Pantoprazole Inj 40 MG Vial IV.PUSH SCH ×2 (06:14→18:14)
[2018-05-02] MEDS: MethylPREDNISolone Sod Succinate Inj 125 MG/2 ML Vial IV.PUSH SCH ×2 (09:00→21:00)
--- NOTE | 2018-05-02 09:48 | P.PNCC ---
Subjective Subjective Remarks/Hospital Course: This is a 72 yo female patient with a medical history significant for bipolar disorder, COPD, heart failure, and chronic back pain on an intrathecal morphine pump. The patient and presented to ER on 04/27 with concern for AMS x 3 days. Patient is only able to provide a limited amount of history. Patient states that her pump had been being adjusted as an outpatient. Per ER physician who spoke with the , there is no concern or suspicion of overdose. There is no history of alcohol or drug abuse. Per ER documentation ammonia was found to be elevated as an outpatient so the lithium was being weaned off. Patient was hypotensive on admission and was given several boluses of IV fluids. She later developed some pulmonary edema with some shortness of breath. She received 40 mg of IV Lasix. She was hep-locked. Per nursing report on arrival to the ER patient was noted to exhibit some tremors. Concern was for seizure. Per review of EMR, patient presented similarly in November with altered mental status and hypotension. Patient was also found to be bradycardic at that time likely to due to her high doses of antiarrhythmics. On 04/30 around 11 AM patient developed altered mental status and stroke alert was called. Patient was evaluated by Dr. Mccarty. Head CT was negative for bleed. She was transferred back to [facility] but she was flagged when she had nausea vomiting and had an episode of aspiration following which she was hypoxic with O2 sats now in the 70s. Patient was placed on a nonrebreather facemask, a rapid response was called and she was transferred to ICU. Dr. Todd contacted me and requested critical care consult for aspiration and acute respiratory failure with concern that patient may need intubation. I evaluated the patient immediately on being notified following her arrival to the CVICU. At that time she was on a nonrebreather facemask maintaining O2 sats in the mid 90s slightly tachypneic. She was much more awake per nursing staff at the time of my evaluation and appeared to be improving neurologically. Patient could give me her name and knew she was at [facility] and knew it was 2018. She was still confused and disoriented which was close to her baseline mental status prior to her deterioration this morning. Patient has had a leukocytosis and has been on empiric antibiotic coverage including IV Levaquin/Azactam and Flagyl IV was added following epidural aspiration today by Dr. Todd. History was obtained by reviewing records, discussion with Dr. Todd as well as nursing staff at bedside 05/01 Patient is lying in bed in NAD. On 5L oxygen. For cardiac cath this afternoon. On Heparin drip. 05/02 Patient was given Lasix 80mgx1 and Bumex 2mg IV x1 overnight and placed on BIPAP with 55%FIO2. CXR showed worsening airspace disease. s/p cardiac cath yesterday showed normal coronaries. Off Heparin drip. Objective Vital Signs / I&O: Vital Signs 05/01/18 11:00 05/01/18 15:00 05/01/18 19:00 Temperature 98.5 F 98.4 F 98.3 F Pulse Rate 74 77 99 H Respiratory Rate 18 18 24 Blood Pressure 118/51 L 116/56 L 130/77 Pulse Oximetry 97 97 99 05/01/18 22:38 05/01/18 23:00 05/02/18 03:00 Temperature 98.4 F 98.4 F Pulse Rate 101 H 94 H Respiratory Rate 24 26 H Blood Pressure 148/82 H 141/86 H Pulse Oximetry 94 L 95 89 L 05/02/18 04:10 05/02/18 06:15 05/02/18 08:00 Temperature Pulse Rate Respiratory Rate Blood Pressure Pulse Oximetry 99 97 95 05/02/18 08:09 Temperature Pulse Rate 109 H Respiratory Rate 23 Blood Pressure Pulse Oximetry Intake & Output 05/01/18 05/02/18 05/02/18 18:59 06:59 18:59 Intake Total 855 / 855 545 / 545 Output Total 675 / 675 Balance 855 / 855 -130 / -130 Weight 64 kg Intake: IV 755 / 755 305 / 305 Heparin/NS PF Inj 1,000 ML @ 0 10 / 10 mls/hr .ROUTE .STK-MED ONE Rx#: [id number] Heparin/D5W 25,000 U/250 mL 25, 40 / 40 000 unit In 250 ml @ 800 UNITS/ HR 8 mls/hr IV.CONT TITRATE PRN Rx#:[id number] Azactam Inj 2 GM In NS Inj 100 200 / 200 100 / 100 ML @ 200 mls/hr IV.SIG Q8H [facility] Rx#:[id number] KCl 20 mEq Premix Inj 20 meq In 200 / 200 100 ml @ 50 mls/hr IV.SIG Q2H PRN Rx#:[id number] Keppra Inj 500 MG In NS Inj 100 105 / 105 105 / 105 ML @ 420 mls/hr IV.SIG Q12H [facility] Rx#:[id number] Flagyl 500 MG Inj 100 ML @ 100 200 / 200 100 / 100 mls/hr IV.SIG Q8H [facility] Rx#: [id number] Oral 240 / 240 Anesthesia Amount 100 / 100 Output: Urine Amount (Catheter) 675 / 675 Indwelling Urethral Catheter 675 / 675 Other: Date of Last Bowel Movement 05/01/18 05/01/18 Result Diagrams: 05/02/18 03:17 05/01/18 22:22 Other Results: Laboratory Results - last 12 hr 05/01/18 05/02/18 05/02/18 22:22 03:17 04:36 WBC 23.3 H RBC 3.23 L Hgb 11.2 L Hct 32.1 L MCV 99.6 MCH 34.6 H MCHC 34.7 RDW 12.9 Plt Count 279 MPV 9.7 Neut % (Auto) 91.5 H Lymph % (Auto) 3.8 L Blanco % (Auto) 4.7 Eos % (Auto) 0.0 Baso % (Auto) 0.0 Neut # (Auto) 21.3 H Lymph # (Auto) 0.9 L Blanco # (Auto) 1.1 H Eos # (Auto) 0.0 Baso # (Auto) 0.0 WBC Differential . Differential Comment Auto diff final Puncture Site Left radial Patient Temperature 98.6 O2 Saturation 95 ABG pH 7.36 L ABG pCO2 30 L ABG pO2 106 ABG HCO3 16 L* ABG O2 Content 16.3 ABG Base Excess -8.1 L ABG Methemoglobin 1.4 Humberto Test Present Hemoglobin 12.1 Carboxyhemoglobin 0.6 O2 Delivery Device Bipap Vent Setting 18ipap/8epap Inspired O2 75 Critical Value Yes Sodium 138 Potassium 4.1 D Chloride 107 D Carbon Dioxide 21.8 Anion Gap 9 BUN 23 H Creatinine 0.73 Estimated GFR 79 L Random Glucose 152 H Calcium 8.6 Phosphorus 2.1 L D Magnesium 1.8 Imaging: Head CTA 04/30/18 00:00 CONCLUSION: 1. No evidence of intraluminal filling defects or steno-occlusive disease. 2. Unremarkable anterior and posterior intracranial circulation 3. No evidence of extracranial carotid or vertebral steno-occlusive disease. Neck CTA 04/30/18 00:00 CONCLUSION: 1. No carotid stenosis. 2. Bilateral upper lobe patchy lung densities. Head CT 04/30/18 11:41 CONCLUSION: 1. No acute intracranial abnormalities. Report was called by [ Dr. Joseph to Dr. Mccarty at 11:57 AM] Chest X-Ray 05/02/18 03:56 CONCLUSION: Overall progression of airspace disease. Objective Remarks: GENERAL: Patient is 72 yo lying in bed on 5L oxygen. SKIN: Warm and dry. HEAD: Normocephalic. EYES: No scleral icterus. No injection or drainage. NECK: Supple, trachea midline. No JVD or lymphadenopathy. CARDIOVASCULAR: Regular rate and rhythm without murmurs, gallops, or rubs. RESPIRATORY: Breath sounds equal bilaterally. No accessory muscle use. GASTROINTESTINAL: Abdomen soft, non-tender, nondistended. MUSCULOSKELETAL: No cyanosis, or edema. Neuro: Awake and alert Assessment and Plan - Assessment and Plan Plan: 72-year-old female with: 1)Resp Insuff 2)Encephalopathy 3)Aspiration pneumonia 4)COPD with possible exacerbation following aspiration 5)NSTEMI 6)CHF 7)Bipolar disorder 8)Leukocytosis Plan: Neuro: Continue Depakote/Keppra IV. Neurology and psychiatry following. Head CT, CTA brain and neck unremarkable. Awaiting MRI brain. CV: Monitor HR and BP keep MAP>65mmHg s/p Cardiac cath 05/01 showed normal coronaries NTG SL PRN for pain, ASA 81mg daily Echo:EF 30%. Distal anteroseptal, apical and distal inferolateral hypokinesis. PAP 50 mmHg. Pulm: Wean down oxygen as jensen keep sats >92% Bronchodilators, Symbicort, Singulair, Solu-Medrol 40 mg IV every 12 hourly NIPPV for resp distress. if there is any worsening of resp status or clinical condition will proceed with intubation Pulmonary following-Dr. Funk Check CXR and ABG GI/liver: On PO diet Protonix IV for GI prophylaxis Renal/: Monitor renal function, I/O's, electrolytes replacement per protocol. Given lasix 80mg and Bumex 2mg overnight. Lasix 20mg IV daily ID: On IV Levaquin/Flagyl/Azactam/vanco. On p.o. acyclovir. 04/28 Blood culture Group C Beta strep Strep pneumonia and Legionella urinary Ag negative 05/01 BC: NGTD 05/01 Sputum cx: Pending ID is following-Dr. Casey Endocrine: Watch for hyperglycemia, SSI for glycemic control if needed. Prophylaxis: Protonix/SCDs/Heparin SQ Level 3
[2018-05-02 10:38] LABS: ABG Base Excess -2.4 mmol/L (-2-2); ABG PCO2 32 mmHg (38-42); ABG PO2 75 mmHG (61-120)
[2018-05-02] MEDS: Docusate Sodium 100 MG Capsule PO SCH ×2 (11:55→21:02)
--- NOTE | 2018-05-02 12:08 | XR ---
EXAM DATE: 05/02/2018 12:03 PM EDT AGE/SEX: 72 years / Female INDICATIONS: Short of breath CLINICAL DATA: This is the patient's subsequent encounter. Patient reports that signs and symptoms h ave been present for 4 - 6 days and indicates a pain score of Nonresponsive. MEDICAL/SURGICAL HISTORY: Chronic obstructive pulmonary disease. Asthma. Cardiovascular disea se. . spinal stimulator COMPARISON: [facility], CHEST 1V SINGLE AP, 05/02/2018. . FINDINGS: A single AP portable erect view of the chest was obtained and demonstrates interval improvement in th e bilateral pulmonary opacities with moderate residual again noted greatest in the right upper lobe a nd left lung base. The heart size remains at the upper limits of normal. The left costophrenic angle remains blunted. The bony thorax remains intact. CONCLUSION: Interval improvement in bilateral pulmonary infiltrates. Electronically signed by: Sergei Chowdhury MD 05/02/2018 12:07 PM EDT
[2018-05-02 13:54] LABS: Calcium 8.8 mg/dL (8.5-10.1); Carbon Dioxide 20.4 meq/L (21.0-32.0); Magnesium 1.6 mg/dL (1.5-2.5); Phosphorus 2.5 mg/dL (2.5-4.9)
[2018-05-02] MEDS: Potassium Chlor 20 mEq Premix 20 MEQ/100 ML PIGGYBACK IV.SIG PRN ×5 (14:38→23:48)
--- NOTE | 2018-05-02 17:07 | P.PNPL ---
Subjective Interval history: 72 YOWF with Br asthma, COPD, Bipolar disorder, AMS Stroke alert was called While pt was lying flat, aspirated Became sob Tr to CVICU On Levaquin,Flagyl and Azactem On BIPAP, fi02 55% Physical Exam Vital signs: Vital Signs 05/01/18 19:00 05/01/18 22:38 05/01/18 23:00 Temperature 98.3 F 98.4 F Pulse Rate 99 H 101 H Respiratory Rate 24 24 Blood Pressure 130/77 148/82 H Pulse Oximetry 99 94 L 95 05/02/18 03:00 05/02/18 04:10 05/02/18 06:15 Temperature 98.4 F Pulse Rate 94 H Respiratory Rate 26 H Blood Pressure 141/86 H Pulse Oximetry 89 L 99 97 05/02/18 07:00 05/02/18 08:00 05/02/18 08:09 Temperature 98.8 F Pulse Rate 114 H 109 H Respiratory Rate 33 H 23 Blood Pressure 113/62 Pulse Oximetry 98 98 05/02/18 09:00 05/02/18 11:00 05/02/18 16:30 Temperature 98.9 F Pulse Rate 88 76 Respiratory Rate 26 H 24 Blood Pressure 104/65 Pulse Oximetry 95 92 L 05/02/18 16:41 Temperature Pulse Rate Respiratory Rate Blood Pressure Pulse Oximetry 97 Intake & Output 05/01/18 05/02/18 05/02/18 18:59 06:59 18:59 Intake Total 855 / 855 695 / 695 300 / 300 Output Total 675 / 675 Balance 855 / 855 20 / 20 300 / 300 Weight 64 kg Intake: IV 755 / 755 455 / 455 300 / 300 Heparin/NS PF Inj 1,000 ML @ 0 10 / 10 mls/hr .ROUTE .STK-MED ONE Rx#: [id number] Heparin/D5W 25,000 U/250 mL 25, 40 / 40 000 unit In 250 ml @ 800 UNITS/ HR 8 mls/hr IV.CONT TITRATE PRN Rx#:[id number] Azactam Inj 2 GM In NS Inj 100 200 / 200 100 / 100 100 / 100 ML @ 200 mls/hr IV.SIG Q8H PAULINE Rx#:[id number] Levaquin 750 mg Premix Inj 150 150 / 150 ML @ 100 mls/hr IV.SIG Q24H PAULINE Rx#:[id number] KCl 20 mEq Premix Inj 20 meq In 200 / 200 100 / 100 100 ml @ 50 mls/hr IV.SIG Q2H PRN Rx#:[id number] Keppra Inj 500 MG In NS Inj 100 105 / 105 105 / 105 ML @ 420 mls/hr IV.SIG Q12H PAULINE Rx#:[id number] Flagyl 500 MG Inj 100 ML @ 100 200 / 200 100 / 100 100 / 100 mls/hr IV.SIG Q8H PAULINE Rx#: [id number] Oral 240 / 240 Anesthesia Amount 100 / 100 Output: Urine Amount (Catheter) 675 / 675 Indwelling Urethral Catheter 5 / 5 Other: Date of Last Bowel Movement 05/01/18 05/01/18 05/02/18 GENERAL: Elderly Wf, sob, sleeping SKIN: Warm and dry. HEAD: Normocephalic. EYES: No scleral icterus. No injection or drainage. NECK: Supple, trachea midline. No JVD or lymphadenopathy. CARDIOVASCULAR: Regular rate and rhythm without murmurs, gallops, or rubs. RESPIRATORY: Breath sounds equal bilaterally. No accessory muscle use. GASTROINTESTINAL: Abdomen soft, non-tender, nondistended. MUSCULOSKELETAL: No cyanosis, or edema. BACK: Nontender without obvious deformity. No CVA tenderness. - Urinary Catheter Management Straight Cath placed during this visit: yes Reason for continuing: Hourly intake/output Insertion date: 04/27/18 Insertion time: 16:10 Indwelling Urethral Catheter Cath placed during this visit: yes Reason for continuing: Hourly intake/output Insertion date: 04/27/18 Assessment and Plan - Plan IMPRESSION: 1. Pulmonary edema is significantly better. 2. COPD/bronchial asthma. 3. Altered mental status is improving. 4. Chronic pain. 5. Congestive heart failure. 6. Bipolar disorder. 7. Resp failure 7. Aspiration PLAN: Cont BIPAP Wean 02 Cont Abx If declines, will need intubation Aerosol nebs Symbicort 2 puffs bid
[2018-05-02] MEDS: Estradiol 1 MG Tablet PO SCH (18:04)
[2018-05-02] MEDS: guaiFENesin 600 MG ER Tablet PO SCH ×2 (18:04→21:02)
[2018-05-02] MEDS: Budesonide-Formoterol 160/4.5 MCG 6 GM Inhaler INH SCH ×2 (18:04→23:36)
[2018-05-02] MEDS: Montelukast 10 MG Tablet PO SCH (18:04)
[2018-05-02] MEDS: Psyllium Fiber SF/GF 6 GM Packet PO SCH ×2 (18:04→21:02)
[2018-05-02] MEDS: Acyclovir 200 MG Capsule PO SCH (18:05)
[2018-05-02] MEDS: Heparin - SQ 10,000 UNITS/ML Vial SQ SCH (21:00)
[2018-05-02] MEDS: Divalproex 500 MG ER Tablet PO SCH (21:02)
[2018-05-03] MEDS: Vancomycin Inj 1,250 MG in Sodium Chlor 0.9% Inj 250 ML IV.SIG SCH ×2 (00:10→23:59)
[2018-05-03] MEDS: Aztreonam Inj 2 GM in Sodium Chloride 0.9% Inj 100 ML IV.SIG SCH ×3 (02:10→20:53)
[2018-05-03] MEDS: SODIUM CHLOR 0.9% IV.SIG SCH (06:16)
[2018-05-03] MEDS: LEVETIRACETAM IV.SIG SCH (06:16)
[2018-05-03] MEDS: Pantoprazole Inj 40 MG Vial IV.PUSH SCH ×2 (06:17→17:44)
[2018-05-03] MEDS: Levothyroxine 75 MCG Tablet PO SCH (06:17)
[2018-05-03] MEDS: MethylPREDNISolone Sod Succinate Inj 125 MG/2 ML Vial IV.PUSH SCH ×2 (08:15→21:10)
--- NOTE | 2018-05-03 09:11 | P.PNCC ---
Subjective Subjective Remarks/Hospital Course: This is a 72 yo female patient with a medical history significant for bipolar disorder, COPD, heart failure, and chronic back pain on an intrathecal morphine pump. The patient and presented to ER on 04/27 with concern for AMS x 3 days. Patient is only able to provide a limited amount of history. Patient states that her pump had been being adjusted as an outpatient. Per ER physician who spoke with the , there is no concern or suspicion of overdose. There is no history of alcohol or drug abuse. Per ER documentation ammonia was found to be elevated as an outpatient so the lithium was being weaned off. Patient was hypotensive on admission and was given several boluses of IV fluids. She later developed some pulmonary edema with some shortness of breath. She received 40 mg of IV Lasix. She was hep-locked. Per nursing report on arrival to the ER patient was noted to exhibit some tremors. Concern was for seizure. Per review of EMR, patient presented similarly in November with altered mental status and hypotension. Patient was also found to be bradycardic at that time likely to due to her high doses of antiarrhythmics. On 04/30 around 11 AM patient developed altered mental status and stroke alert was called. Patient was evaluated by Dr. Mccarty. Head CT was negative for bleed. She was transferred back to [facility] but she was flagged when she had nausea vomiting and had an episode of aspiration following which she was hypoxic with O2 sats now in the 70s. Patient was placed on a nonrebreather facemask, a rapid response was called and she was transferred to ICU. Dr. Todd contacted me and requested critical care consult for aspiration and acute respiratory failure with concern that patient may need intubation. I evaluated the patient immediately on being notified following her arrival to the CVICU. At that time she was on a nonrebreather facemask maintaining O2 sats in the mid 90s slightly tachypneic. She was much more awake per nursing staff at the time of my evaluation and appeared to be improving neurologically. Patient could give me her name and knew she was at [facility] and knew it was 2018. She was still confused and disoriented which was close to her baseline mental status prior to her deterioration this morning. Patient has had a leukocytosis and has been on empiric antibiotic coverage including IV Levaquin/Azactam and Flagyl IV was added following epidural aspiration today by Dr. Todd. History was obtained by reviewing records, discussion with Dr. Todd as well as nursing staff at bedside 05/01 Patient is lying in bed in NAD. On 5L oxygen. For cardiac cath this afternoon. On Heparin drip. 05/02 Patient was given Lasix 80mgx1 and Bumex 2mg IV x1 overnight and placed on BIPAP with 55%FIO2. CXR showed worsening airspace disease. s/p cardiac cath yesterday showed normal coronaries. Off Heparin drip 05/03 Patient is off BIPAP down to 3L oxygen. Afebrile. . Objective Vital Signs / I&O: Vital Signs 05/02/18 11:00 05/02/18 15:00 05/02/18 16:30 Temperature 98.9 F 98.9 F Pulse Rate 88 77 76 Respiratory Rate 26 H 22 24 Blood Pressure 104/65 107/66 Pulse Oximetry 92 L 97 05/02/18 16:41 05/02/18 19:00 05/02/18 19:58 Temperature Pulse Rate 83 80 Respiratory Rate 14 Blood Pressure Pulse Oximetry 97 99 05/02/18 20:00 05/02/18 23:00 05/02/18 23:43 Temperature 99.8 F H 100.6 F H Pulse Rate 80 83 Respiratory Rate 27 H 18 Blood Pressure 115/64 118/65 Pulse Oximetry 98 99 99 05/03/18 00:25 05/03/18 03:00 05/03/18 03:58 Temperature 100.4 F H Pulse Rate 84 83 Respiratory Rate 27 H Blood Pressure 142/78 H Pulse Oximetry 99 98 05/03/18 07:00 05/03/18 08:45 05/03/18 08:50 Temperature 98.4 F Pulse Rate 106 H Respiratory Rate 33 H Blood Pressure 142/86 H Pulse Oximetry 97 100 99 05/03/18 08:55 05/03/18 08:57 05/03/18 09:00 Temperature Pulse Rate 109 H Respiratory Rate 20 Blood Pressure Pulse Oximetry 99 98 Intake & Output 05/02/18 05/03/18 05/03/18 18:59 06:59 18:59 Intake Total 1005 / 1005 705 / 705 567.5 / 567.5 Output Total 1400 / 1400 275 / 275 Balance -395 / -395 430 / 430 567.5 / 567.5 Weight 63.5 kg Intake: IV 1005 / 1005 705 / 705 567.5 / 567.5 Azactam Inj 2 GM In NS Inj 100 200 / 200 100 / 100 100 / 100 ML @ 200 mls/hr IV.SIG Q8H PAULINE Rx#:[id number] Levaquin 750 mg Premix Inj 150 150 / 150 ML @ 100 mls/hr IV.SIG Q24H PAULINE Rx#:[id number] KCl 20 mEq Premix Inj 20 meq In 100 / 100 400 / 400 100 ml @ 50 mls/hr IV.SIG Q2H PRN Rx#:[id number] Vancomycin Inj 1,000 MG In NS 250 / 250 Inj 250 ML @ 250 mls/hr IV.SIG ONCE ONE Rx#:[id number] Vancomycin Inj 1,250 MG In NS 262.5 / 262.5 Inj 250 ML @ 250 mls/hr IV.SIG Q18H PAULINE Rx#:[id number] Keppra Inj 500 MG In NS Inj 100 105 / 105 105 / 105 105 / 105 ML @ 420 mls/hr IV.SIG Q12H PAULINE Rx#:[id number] Flagyl 500 MG Inj 100 ML @ 100 200 / 200 100 / 100 100 / 100 mls/hr IV.SIG Q8H PAULINE Rx#: [id number] Oral 0 / 0 Output: Urine Amount (Catheter) 1400 / 1400 275 / 275 Indwelling Urethral Catheter 1400 / 1400 275 / 275 Other: Date of Last Bowel Movement 05/02/18 05/02/18 Result Diagrams: 05/02/18 03:17 05/02/18 19:51 Other Results: Laboratory Results - last 12 hr 05/02/18 19:51 Potassium 3.7 Imaging: Head CTA 04/30/18 00:00 CONCLUSION: 1. No evidence of intraluminal filling defects or steno-occlusive disease. 2. Unremarkable anterior and posterior intracranial circulation 3. No evidence of extracranial carotid or vertebral steno-occlusive disease. Neck CTA 04/30/18 00:00 CONCLUSION: 1. No carotid stenosis. 2. Bilateral upper lobe patchy lung densities. Head CT 04/30/18 11:41 CONCLUSION: 1. No acute intracranial abnormalities. Report was called by [ Dr. Joseph to Dr. Mccarty at 11:57 AM] Chest X-Ray 05/02/18 11:39 CONCLUSION: Interval improvement in bilateral pulmonary infiltrates. Objective Remarks: GENERAL: Patient is 72 yo lying in bed on 5L oxygen. SKIN: Warm and dry. HEAD: Normocephalic. EYES: No scleral icterus. No injection or drainage. NECK: Supple, trachea midline. No JVD or lymphadenopathy. CARDIOVASCULAR: Regular rate and rhythm without murmurs, gallops, or rubs. RESPIRATORY: Breath sounds equal bilaterally. No accessory muscle use. Fe3w coarse BS GASTROINTESTINAL: Abdomen soft, non-tender, nondistended. MUSCULOSKELETAL: No cyanosis, +1 edema. Neuro: Awake and alert Assessment and Plan - Assessment and Plan Plan: 72-year-old female with: 1)Resp Insuff 2)Encephalopathy 3)Aspiration pneumonia 4)COPD with possible exacerbation following aspiration 5)NSTEMI 6)CHF 7)Bipolar disorder 8)Leukocytosis Plan: Neuro: Continue Depakote/Keppra IV. Neurology and psychiatry following. Head CT, CTA brain and neck unremarkable. Awaiting MRI brain. CV: Monitor HR and BP keep MAP>65mmHg s/p Cardiac cath 05/01 showed normal coronaries NTG SL PRN for pain, ASA 81mg daily Echo:EF 30%. Distal anteroseptal, apical and distal inferolateral hypokinesis. PAP 50 mmHg. Pulm: Continue with oxygen keep sats >92% Bronchodilators, Symbicort, Singulair, Solu-Medrol 40 mg IV every 12 hourly NIPPV for resp distress. if there is any worsening of resp status or clinical condition will proceed with intubation Pulmonary following-Dr. Funk CXR 05/02: Improvements in pulm infiltrates GI/liver: On PO diet Protonix IV for GI prophylaxis Renal/: Monitor renal function, I/O's, electrolytes replacement per protocol. Lasix 20mg IV daily ID: On IV Levaquin/Flagyl/Azactam/vanco. On p.o. acyclovir. 04/28 Blood culture Group C Beta strep Strep pneumonia and Legionella urinary Ag negative 05/01 BC: NGTD 05/01 Sputum cx: Pending ID is following-Dr. Casey Endocrine: Watch for hyperglycemia, SSI for glycemic control if needed. Prophylaxis: Protonix/SCDs/Heparin SQ Follow up on labs Level 3
[2018-05-03 09:13] LABS: Baso % (Auto) 0.2 % (0.0-2.0); Eos % (Auto) 0.1 % (0.0-4.0); Lymph % (Auto) 5.2 % (9.0-44.0); Mean Corpuscular HGB Conc 35.5 % (32.0-36.0); Mean Corpuscular Hemoglobin 35.2 pg (27.0-34.0); Mean Corpuscular Volume 99.3 fL (80.0-100.0); Mean Platelet Volume 9.3 fL (7.0-11.0); Mono # (Auto) 1.1 th/mm3 (0.0-0.9); Mono % (Auto) 5.7 % (0.0-8.0); Neut # (Auto) 17.4 th/mm3 (1.8-7.7); Neut % (Auto) 88.8 % (16.0-70.0); Platelet Count 286 th/mm3 (150-450); Red Blood Count 3.12 mil/mm3 (4.00-5.30); White Blood Count 19.5 th/mm3 (4.0-11.0)
[2018-05-03] MEDS: Montelukast 10 MG Tablet PO SCH (09:49)
[2018-05-03] MEDS: Docusate Sodium 100 MG Capsule PO SCH ×2 (09:49→21:12)
[2018-05-03] MEDS: guaiFENesin 600 MG ER Tablet PO SCH ×2 (09:49→20:52)
[2018-05-03] MEDS: Acyclovir 200 MG Capsule PO SCH (09:50)
[2018-05-03 09:51] LABS: Calcium 8.8 mg/dL (8.5-10.1); Magnesium 1.9 mg/dL (1.5-2.5); Phosphorus 2.3 mg/dL (2.5-4.9); Potassium 4.1 meq/L (3.5-5.1)
[2018-05-03] MEDS: Estradiol 1 MG Tablet PO SCH (09:51)
[2018-05-03] MEDS: Psyllium Fiber SF/GF 6 GM Packet PO SCH ×2 (09:53→21:11)
[2018-05-03] MEDS: Budesonide-Formoterol 160/4.5 MCG 6 GM Inhaler INH SCH (09:53)
[2018-05-03] MEDS: Heparin - SQ 10,000 UNITS/ML Vial SQ SCH ×2 (10:04→20:54)
--- NOTE | 2018-05-03 13:25 | P.DIET ---
Nutritional Evaluation Type of nutrition evaluation: initial Screening comments: NPO x 3-Days. Objective - Objective Diet Order: NPO Assessment Assessment: NPO x 3-Days. Please Consult RD if Needed.
--- NOTE | 2018-05-03 18:44 | P.PNPL ---
Subjective Interval history: 72 YOWF with Br asthma, COPD, Bipolar disorder, AMS Stroke alert was called While pt was lying flat, aspirated Became sob Tr to CVICU On Levaquin,Flagyl and Azactem Weaned to 3LNC Physical Exam Vital signs: Vital Signs 05/02/18 19:00 05/02/18 19:58 05/02/18 20:00 Temperature 99.8 F H Pulse Rate 83 80 80 Respiratory Rate 14 27 H Blood Pressure 115/64 Pulse Oximetry 99 98 05/02/18 23:00 05/02/18 23:43 05/03/18 00:25 Temperature 100.6 F H Pulse Rate 83 84 Respiratory Rate 18 Blood Pressure 118/65 Pulse Oximetry 99 99 05/03/18 03:00 05/03/18 03:58 05/03/18 07:00 Temperature 100.4 F H 98.4 F Pulse Rate 83 106 H Respiratory Rate 27 H 33 H Blood Pressure 142/78 H 142/86 H Pulse Oximetry 99 98 97 05/03/18 08:45 05/03/18 08:50 05/03/18 08:55 Temperature Pulse Rate Respiratory Rate Blood Pressure Pulse Oximetry 100 99 99 05/03/18 08:57 05/03/18 09:00 05/03/18 11:00 Temperature 98.7 F Pulse Rate 109 H 123 H Respiratory Rate 20 27 H Blood Pressure 157/93 H Pulse Oximetry 98 98 Intake & Output 05/02/18 05/03/18 05/03/18 18:59 06:59 18:59 Intake Total 1005 / 1005 705 / 705 767.5 / 767.5 Output Total 1400 / 1400 275 / 275 725 / 725 Balance -395 / -395 430 / 430 42.5 / 42.5 Weight 63.5 kg Intake: IV 1005 / 1005 705 / 705 767.5 / 767.5 Azactam Inj 2 GM In NS Inj 100 200 / 200 100 / 100 200 / 200 ML @ 200 mls/hr IV.SIG Q8H PAULINE Rx#:[id number] Levaquin 750 mg Premix Inj 150 150 / 150 ML @ 100 mls/hr IV.SIG Q24H PAULINE Rx#:[id number] KCl 20 mEq Premix Inj 20 meq In 100 / 100 400 / 400 100 ml @ 50 mls/hr IV.SIG Q2H PRN Rx#:[id number] Vancomycin Inj 1,000 MG In NS 250 / 250 Inj 250 ML @ 250 mls/hr IV.SIG ONCE ONE Rx#:[id number] Vancomycin Inj 1,250 MG In NS 262.5 / 262.5 Inj 250 ML @ 250 mls/hr IV.SIG Q18H PAULINE Rx#:[id number] Keppra Inj 500 MG In NS Inj 100 105 / 105 105 / 105 105 / 105 ML @ 420 mls/hr IV.SIG Q12H PAULINE Rx#:[id number] Flagyl 500 MG Inj 100 ML @ 100 200 / 200 100 / 100 200 / 200 mls/hr IV.SIG Q8H PAULINE Rx#: [id number] Oral 0 / 0 Output: Urine Amount (Catheter) 1400 / 1400 275 / 275 725 / 725 Indwelling Urethral Catheter 1400 / 1400 275 / 275 725 / 725 Other: Date of Last Bowel Movement 05/02/18 05/02/18 05/02/18 GENERAL: Anxious elderly WF,NAD SKIN: Warm and dry. HEAD: Normocephalic. EYES: No scleral icterus. No injection or drainage. NECK: Supple, trachea midline. No JVD or lymphadenopathy. CARDIOVASCULAR: Regular rate and rhythm without murmurs, gallops, or rubs. RESPIRATORY: Breath sounds equal bilaterally. No accessory muscle use. GASTROINTESTINAL: Abdomen soft, non-tender, nondistended. MUSCULOSKELETAL: No cyanosis, or edema. BACK: Nontender without obvious deformity. No CVA tenderness. - Urinary Catheter Management Straight Cath placed during this visit: yes Reason for continuing: Hourly intake/output Insertion date: 04/27/18 Insertion time: 16:10 Indwelling Urethral Catheter Cath placed during this visit: yes Reason for continuing: Hourly intake/output Insertion date: 04/27/18 Assessment and Plan - Plan IMPRESSION: 1. Pulmonary edema is significantly better. 2. COPD/bronchial asthma. 3. Altered mental status is improving. 4. Chronic pain. 5. Congestive heart failure. 6. Bipolar disorder. 7. Resp failure 7. Aspiration PLAN: Supplement 02 Wean 02 Cont Abx Aerosol nebs Symbicort 2 puffs bid
--- NOTE | 2018-05-03 19:36 | P.PNNEU ---
Subjective Subjective Comments: No acute events reported No headache No new seizures Active Medications: Active Medications Acetaminophen (Tylenol) 650 mg PO Q4H PRN PRN Reason: FEVER/HEADACHE Last Admin: 04/29/18 01:20 Dose: 650 mg Acyclovir (Zovirax) 400 mg PO DAILY [facility] Last Admin: 05/03/18 09:50 Dose: 400 mg Albuterol (Duoneb Neb (Narda)) 1 ampul NEB Q6HR WHILE AWAKE NEB [facility] Last Admin: 05/03/18 08:56 Dose: 1 ampul Albuterol (Duoneb Neb (Prn)) 1 ampul NEB Q2HR NEB PRN PRN Reason: SHORTNESS OF BREATH/WHEEZING Albuterol (Duoneb Neb (Prn)) 1 ampul NEB Q4HR NEB PRN PRN Reason: DYSPNEA Aspirin (Ecotrin) 81 mg PO DAILY [facility] Last Admin: 05/03/18 09:50 Dose: 81 mg Bisacodyl (Dulcolax Supp) 10 mg RECTAL DAILY PRN PRN Reason: SEVERE CONSITIPATION Budesonide/Formoterol Fumarate (Symbicort 160/4.5 Mcg Inh) 2 puff INH BID [facility] Last Admin: 05/03/18 09:53 Dose: 2 puff Divalproex Sodium (Depakote Er) 500 mg PO HS [facility] Last Admin: 05/02/18 21:02 Dose: Not Given Docusate Sodium (Colace) 100 mg PO BID [facility] Last Admin: 05/03/18 09:49 Dose: 100 mg Estradiol (Estrace) 2 mg PO DAILY [facility] Last Admin: 05/03/18 09:51 Dose: 2 mg Furosemide (Lasix Inj) 20 mg IV.PUSH DAILY [facility] Last Admin: 05/03/18 08:16 Dose: 20 mg Guaifenesin (Mucinex Er) 600 mg PO BID [facility] Last Admin: 05/03/18 09:49 Dose: 600 mg Heparin Sodium (Porcine) (Heparin Inj) 5,000 units SQ Q12HR [facility] Last Admin: 05/03/18 10:04 Dose: 5,000 units Levofloxacin/Dextrose (Levaquin 750 Mg Premix Inj) 150 mls @ 100 mls/hr IV.SIG Q24H [facility] Last Infusion: 05/03/18 19:02 Dose: Infused Aztreonam 2 gm/ Sodium (Chloride) 100 mls @ 200 mls/hr IV.SIG Q8H [facility] Last Infusion: 05/03/18 11:40 Dose: Infused Metronidazole/Sodium Chloride (Flagyl 500 Mg Inj) 100 mls @ 100 mls/hr IV.SIG Q8H [facility] Last Infusion: 05/03/18 16:24 Dose: Infused Acetaminophen (Ofirmev Inj) 1,000 mg in 100 mls @ 400 mls/hr IV.SIG Q8H PRN PRN Reason: PAIN 1 TO 10/FEVER > 100.5 Magnesium Sulfate Inj 4 gm/ (Sodium Chloride) 100 mls @ 50 mls/hr IV.SIG UNSCH PRN PRN Reason: For Magnesium 0.9 - 1.1 mg/dL Magnesium Sulfate Inj 2 gm/ (Sodium Chloride) 100 mls @ 50 mls/hr IV.SIG UNSCH PRN PRN Reason: For Magnesium 1.2 - 1.6 mg/dL Potassium Chloride (Kcl 40 Meq Premix Inj) 40 meq in 100 mls @ 25 mls/hr IV.SIG Q2H PRN PRN Reason: For Potassium 2.8 - 3.2 mEq/L Potassium Chloride (Kcl 20 Meq Premix Inj) 20 meq in 100 mls @ 50 mls/hr IV.SIG Q2H PRN PRN Reason: For Potassium 3.3 - 3.5 mEq/L Last Infusion: 05/03/18 02:00 Dose: Infused Potassium Chloride (Kcl 40 Meq Premix Inj) 40 meq in 100 mls @ 25 mls/hr IV.SIG UNSCH PRN PRN Reason: For Potassium 3.3 - 3.5 mEq/L Potassium Phosphate 30 mmol/ (Sodium Chloride) 260 mls @ 42 mls/hr IV.SIG UNSCH PRN PRN Reason: SEE LABEL COMMENTS Sodium Phosphate 30 mmol/ (Sodium Chloride) 260 mls @ 42 mls/hr IV.SIG UNSCH PRN PRN Reason: For Phosphorus < 2.5 mg/dL Potassium Chloride (Kcl 20 Meq Premix Inj) 20 meq in 100 mls @ 50 mls/hr IV.SIG Q2H PRN PRN Reason: For Potassium 2.8 - 3.2 mEq/L Last Infusion: 05/02/18 20:13 Dose: Infused Pharmacy Profile Note (Vancomycin Consult Pharmacy) 0 mls @ 0 mls/hr OTHER UNSCH [facility] Vancomycin HCl 1,250 mg/ (Sodium Chloride) 262.5 mls @ 250 mls/hr IV.SIG Q18H [facility] Last Infusion: 05/03/18 07:05 Dose: Infused Ipratropium [place] (Atrovent Neb) 0.5 mg INH Q6HR NEB PRN PRN Reason: Shortness Of Breath Levothyroxine Sodium (Synthroid) 75 mcg PO DAILY@0600 [facility] Last Admin: 05/03/18 06:17 Dose: Not Given Magnesium Oxide (Mag-Ox) 800 mg PO UNSCH PRN PRN Reason: For Magnesium 1.2 - 1.6 mg/dL Methylprednisolone Sodium Succinate (Solumedrol Inj) 40 mg IV.PUSH Q12HR [facility] Last Admin: 05/03/18 08:15 Dose: 40 mg Miscellaneous Information ([facility] Ordered Lab Info) 0 each OTHER ONCE ONE Stop: 05/04/18 11:46 Montelukast Sodium (Singulair) 10 mg PO DAILY [facility] Last Admin: 05/03/18 09:49 Dose: 10 mg Multivitamins (Theragran) 1 tab PO DAILY [facility] Last Admin: 05/03/18 09:49 Dose: 1 tab Nitroglycerin (Nitrostat Sl) 0.4 mg SL Q5M PRN PRN Reason: CHEST PAIN 1-10 Last Admin: 05/01/18 08:58 Dose: 0.4 mg Pantoprazole Sodium (Protonix Inj) 40 mg IV.PUSH Q12H [facility] Last Admin: 05/03/18 17:44 Dose: 40 mg Pt:Cyclosporine Opth (Elenita) 0 each EACH EYE Q12H [facility] Last Admin: 04/30/18 00:24 Dose: Not Given Pt:Lactobacillus (Combo #4) 0 each PO DAILY [facility] Last Admin: 04/30/18 00:25 Dose: Not Given Potassium Bicarb/Potassium Chloride (K-Lyte Cl Eff) 50 meq PO UNSCH PRN PRN Reason: For Potassium 3.3 - 3.5 mEq/L Potassium Chloride (K-Dur) 20 meq PO DAILY [facility] Last Admin: 05/03/18 09:50 Dose: 20 meq Potassium Phosphate (K-Phos Original) 2,000 mg PO Q4H PRN PRN Reason: Phosphorus Less Than 2.5 mg/dL Potassium Phosphate (K-Phos Original) 2,000 mg PO UNSCH PRN PRN Reason: SEE LABEL COMMENTS Promethazine HCl (Phenergan Inj) 12.5 mg IM Q6H PRN PRN Reason: NAUSEA Last Admin: 05/01/18 02:55 Dose: 12.5 mg Psyllium Hydrophilic Mucilloid (Metamucil Smooth Texture Sf/Gf Pkt) 0 packet PO BID [facility] Last Admin: 05/03/18 09:53 Dose: 1 packet Sennosides (Senokot) 17.2 mg PO Q12H PRN PRN Reason: Moderate Constipation Sodium Chloride (Ns Flush) 2 ml IV.FLUSH PRN PRN PRN Reason: FLUSH AFTER USING IV ACCESS Last Admin: 04/27/18 21:37 Dose: 2 ml Sodium Chloride (Ns Flush) 2 ml IV.FLUSH BID [facility] Last Admin: 05/03/18 09:54 Dose: 2 ml Sodium Chloride (Ns Flush) 2 ml IV.FLUSH PRN PRN PRN Reason: FLUSH AFTER USING IV ACCESS Allergies/Adverse Reactions: Allergies Allergy/AdvReac Type Severity Reaction Status Date / Time penicillin G Allergy Severe hives Verified 04/27/18 14:10 Sulfa (Sulfonamide Allergy Severe hives Verified 04/27/18 14:10 Antibiotics) latex Allergy Intermediate rash Verified 04/27/18 14:10 piroxicam Allergy Unknown Hives Verified 04/27/18 14:10 cyclobenzaprine AdvReac Intermediate PAU Verified 04/27/18 14:10 hydroxyzine AdvReac Unknown Hives Verified 04/27/18 14:10 Physical Exam Vital signs: Vital Signs 05/02/18 19:58 05/02/18 20:00 05/02/18 23:00 Temperature 99.8 F H 100.6 F H Pulse Rate 80 80 83 Respiratory Rate 14 27 H 18 Blood Pressure 115/64 118/65 Pulse Oximetry 99 98 99 05/02/18 23:43 05/03/18 00:25 05/03/18 03:00 Temperature 100.4 F H Pulse Rate 84 83 Respiratory Rate 27 H Blood Pressure 142/78 H Pulse Oximetry 99 99 05/03/18 03:58 05/03/18 07:00 05/03/18 08:45 Temperature 98.4 F Pulse Rate 106 H Respiratory Rate 33 H Blood Pressure 142/86 H Pulse Oximetry 98 97 100 05/03/18 08:50 05/03/18 08:55 05/03/18 08:57 Temperature Pulse Rate 109 H Respiratory Rate 20 Blood Pressure Pulse Oximetry 99 99 05/03/18 09:00 05/03/18 11:00 05/03/18 12:00 Temperature 98.7 F Pulse Rate 123 H 114 H Respiratory Rate 27 H Blood Pressure 157/93 H Pulse Oximetry 98 98 05/03/18 14:00 05/03/18 16:00 05/03/18 18:00 Temperature 98.7 F Pulse Rate 126 H 118 H 98 H Respiratory Rate 30 H Blood Pressure 144/82 H Pulse Oximetry 96 Intake & Output 05/03/18 05/03/18 05/04/18 06:59 18:59 06:59 Intake Total 705 / 705 767.5 / 767.5 255 / 255 Output Total 275 / 275 725 / 725 Balance 430 / 430 42.5 / 42.5 255 / 255 Weight 63.5 kg Intake: IV 705 / 705 767.5 / 767.5 255 / 255 Azactam Inj 2 GM In NS Inj 100 100 / 100 200 / 200 ML @ 200 mls/hr IV.SIG Q8H [facility] Rx#:[id number] Levaquin 750 mg Premix Inj 150 150 / 150 ML @ 100 mls/hr IV.SIG Q24H [facility] Rx#:[id number] KCl 20 mEq Premix Inj 20 meq In 400 / 400 100 ml @ 50 mls/hr IV.SIG Q2H PRN Rx#:[id number] Vancomycin Inj 1,250 MG In NS 262.5 / 262.5 Inj 250 ML @ 250 mls/hr IV.SIG Q18H [facility] Rx#:[id number] Keppra Inj 500 MG In NS Inj 100 105 / 105 105 / 105 ML @ 420 mls/hr IV.SIG Q12H [facility] Rx#:[id number] Keppra Inj 500 MG In NS Inj 100 105 / 105 ML @ 420 mls/hr IV.SIG Q12H [facility] Rx#:[id number] Flagyl 500 MG Inj 100 ML @ 100 100 / 100 200 / 200 mls/hr IV.SIG Q8H [facility] Rx#: [id number] Oral 0 / 0 Output: Urine Amount (Catheter) 275 / 275 725 / 725 Indwelling Urethral Catheter 275 / 275 725 / 725 Other: Date of Last Bowel Movement 05/02/18 05/02/18 - Routine Neurological Exam alert, follows commands Speech is normal CN intact MOTOR--no focal deficits - Urinary Catheter Management Straight Cath placed during this visit: yes Reason for continuing: Hourly intake/output Insertion date: 04/27/18 Insertion time: 16:10 Indwelling Urethral Catheter Cath placed during this visit: yes Reason for continuing: Hourly intake/output Insertion date: 04/27/18 Objective Laboratory Results - last 24 hr 05/02/18 05/03/18 05/03/18 19:51 08:37 08:37 WBC 19.5 H RBC 3.12 L Hgb 11.0 L Hct 31.0 L MCV 99.3 MCH 35.2 H MCHC 35.5 RDW 13.0 Plt Count 286 MPV 9.3 Neut % (Auto) 88.8 H Lymph % (Auto) 5.2 L [place] % (Auto) 5.7 Eos % (Auto) 0.1 Baso % (Auto) 0.2 Neut # (Auto) 17.4 H Lymph # (Auto) 1.0 [place] # (Auto) 1.1 H Eos # (Auto) 0.0 Baso # (Auto) 0.0 WBC Differential . Differential Comment Auto diff final Hematology Comments Sodium 145 Potassium 3.7 4.1 Chloride 116 H D Carbon Dioxide 18.0 L Anion Gap 11 BUN 37 H Creatinine 0.76 Estimated GFR 75 L Random Glucose 120 H Calcium 8.8 Phosphorus 2.3 L Magnesium 1.9 Microbiology 05/01/18 15:43 Aerobic Blood Culture - Preliminary Blood - Peripheral No growth in 2 days Anaerobic Blood Culture - Preliminary No growth in 2 days 05/01/18 15:38 Aerobic Blood Culture - Preliminary Blood - Peripheral No growth in 2 days Anaerobic Blood Culture - Preliminary No growth in 2 days 04/28/18 17:00 Aerobic Blood Culture - Final Blood - Peripheral No growth in 5 days Anaerobic Blood Culture - Final No growth in 5 days 04/28/18 16:55 Aerobic Blood Culture - Final Blood - Peripheral Beta Streptococcus Group C Anaerobic Blood Culture - Final No growth in 5 days 05/01/18 21:00 Gram Stain - Final Sputum - Expectorated Sputum Sputum Culture - Final Review/Management - Diagnosis (1) Seizure Code(s): R56.9 - Unspecified convulsions Status: Acute Current Visit: Yes - Review/Management Plan: continue keppra --change to po
[2018-05-03] MEDS: Divalproex 500 MG ER Tablet PO SCH (20:51)
[2018-05-03] MEDS: levETIRAcetam 500 MG Tablet PO SCH (20:53)
--- NOTE | 2018-05-03 21:10 | P.PNID ---
Subjective Remarks: pt is on NC O2 No cough Taking full diet w/o choking Antibiotics: azactam levaquin flagyl vanco Allergies/Adverse Reactions: Allergies penicillin G Allergy (Severe, Verified 04/27/18 14:10) hives Sulfa (Sulfonamide Antibiotics) Allergy (Severe, Verified 04/27/18 14:10) hives latex Allergy (Intermediate, Verified 04/27/18 14:10) rash piroxicam Allergy (Unknown, Verified 04/27/18 14:10) Hives cyclobenzaprine Adverse Reaction (Intermediate, Verified 04/27/18 14:10) PAU hydroxyzine Adverse Reaction (Unknown, Verified 04/27/18 14:10) Hives Objective Vital Signs 05/02/18 23:00 05/02/18 23:43 05/03/18 00:25 Temperature 100.6 F H Pulse Rate 83 84 Respiratory Rate 18 Blood Pressure 118/65 Pulse Oximetry 99 99 05/03/18 03:00 05/03/18 03:58 05/03/18 07:00 Temperature 100.4 F H 98.4 F Pulse Rate 83 106 H Respiratory Rate 27 H 33 H Blood Pressure 142/78 H 142/86 H Pulse Oximetry 99 98 97 05/03/18 08:45 05/03/18 08:50 05/03/18 08:55 Temperature Pulse Rate Respiratory Rate Blood Pressure Pulse Oximetry 100 99 99 05/03/18 08:57 05/03/18 09:00 05/03/18 11:00 Temperature 98.7 F Pulse Rate 109 H 123 H Respiratory Rate 20 27 H Blood Pressure 157/93 H Pulse Oximetry 98 98 05/03/18 12:00 05/03/18 14:00 05/03/18 16:00 Temperature 98.7 F Pulse Rate 114 H 126 H 118 H Respiratory Rate 30 H Blood Pressure 144/82 H Pulse Oximetry 96 05/03/18 18:00 05/03/18 20:00 05/03/18 20:01 Temperature Pulse Rate 98 H 112 H Respiratory Rate 16 Blood Pressure Pulse Oximetry 99 Intake & Output 05/03/18 05/03/18 05/04/18 06:59 18:59 06:59 Intake Total 705 / 705 767.5 / 767.5 255 / 255 Output Total 275 / 275 725 / 725 Balance 430 / 430 42.5 / 42.5 255 / 255 Weight 63.5 kg Intake: IV 705 / 705 767.5 / 767.5 255 / 255 Azactam Inj 2 GM In NS Inj 100 100 / 100 200 / 200 ML @ 200 mls/hr IV.SIG Q8H [facility] Rx#:[id number] Levaquin 750 mg Premix Inj 150 150 / 150 ML @ 100 mls/hr IV.SIG Q24H [facility] Rx#:[id number] KCl 20 mEq Premix Inj 20 meq In 400 / 400 100 ml @ 50 mls/hr IV.SIG Q2H [facility]N Rx#:[id number] Vancomycin Inj 1,250 MG In NS 262.5 / 262.5 Inj 250 ML @ 250 mls/hr IV.SIG Q18H [facility] Rx#:[id number] Keppra Inj 500 MG In NS Inj 100 105 / 105 105 / 105 ML @ 420 mls/hr IV.SIG Q12H [facility] Rx#:[id number] Keppra Inj 500 MG In NS Inj 100 105 / 105 ML @ 420 mls/hr IV.SIG Q12H [facility] Rx#:[id number] Flagyl 500 MG Inj 100 ML @ 100 100 / 100 200 / 200 mls/hr IV.SIG Q8H [facility] Rx#: [id number] Oral 0 / 0 Output: Urine Amount (Catheter) 275 / 275 725 / 725 Indwelling Urethral Catheter 275 / 275 725 / 725 Other: Date of Last Bowel Movement 05/02/18 05/02/18 05/01/18 15:43 Blood - Peripheral Aerobic Blood Culture - Preliminary No growth in 2 days 05/01/18 15:43 Blood - Peripheral Anaerobic Blood Culture - Preliminary No growth in 2 days 05/01/18 15:38 Blood - Peripheral Aerobic Blood Culture - Preliminary No growth in 2 days 05/01/18 15:38 Blood - Peripheral Anaerobic Blood Culture - Preliminary No growth in 2 days 04/28/18 17:00 Blood - Peripheral Aerobic Blood Culture - Final No growth in 5 days 04/28/18 17:00 Blood - Peripheral Anaerobic Blood Culture - Final No growth in 5 days 04/28/18 16:55 Blood - Peripheral Aerobic Blood Culture - Final Beta Streptococcus Group C 04/28/18 16:55 Blood - Peripheral Anaerobic Blood Culture - Final No growth in 5 days 05/01/18 21:00 Sputum - Expectorated Sputum Gram Stain - Final 05/01/18 21:00 Sputum - Expectorated Sputum Sputum Culture - Final 05/01/18 18:45 Urine - Catheterized Urine Streptococcus pneumoniae Antigen ( M - Final Presumptive negative for streptococcus pneumoniae antigen, suggesting no current or recent infection. Infection due to Streptococcus pneumoniae cannot be ruled out since the antigen present in the sample may be below the detection limit of the test. 05/01/18 18:45 Urine - Catheterized Urine Legionella Antigen - Final Presumptive negative for Legionella pneumophila serogroup 1 antigen in urine, suggesting no recent or recurrent infection. Infection due to Legionella cannot be ruled out since other serogroups and species may cause disease, antigen may not be present in urine in early infection, and the level of antigen present in the urine may be below the detection limit of the test. Lab - Hematology Results 05/02/18 05/03/18 03:17 08:37 WBC 23.3 H 19.5 H RBC 3.23 L 3.12 L Hgb 11.2 L 11.0 L Hct 32.1 L 31.0 L MCV 99.6 99.3 MCH 34.6 H 35.2 H MCHC 34.7 35.5 RDW 12.9 13.0 Plt Count 279 286 MPV 9.7 9.3 Neut % (Auto) 91.5 H 88.8 H Lymph % (Auto) 3.8 L 5.2 L [place] % (Auto) 4.7 5.7 Eos % (Auto) 0.0 0.1 Baso % (Auto) 0.0 0.2 Neut # (Auto) 21.3 H 17.4 H Lymph # (Auto) 0.9 L 1.0 [place] # (Auto) 1.1 H 1.1 H Eos # (Auto) 0.0 0.0 Baso # (Auto) 0.0 0.0 WBC Differential . . Differential Comment Auto diff final Auto diff final Hematology Comments Lab - Chemistry Results 05/01/18 05/02/18 05/02/18 22:22 12:49 19:51 Sodium 138 140 Potassium 4.1 D 3.0 L D 3.7 Chloride 107 D 107 Carbon Dioxide 21.8 20.4 L Anion Gap 9 13 BUN 23 H 32 H Creatinine 0.73 0.81 Estimated GFR 79 L 70 L Random Glucose 152 H 140 H Calcium 8.6 8.8 Phosphorus 2.1 L D 2.5 Magnesium 1.8 1.6 05/03/18 08:37 Sodium 145 Potassium 4.1 Chloride 116 H D Carbon Dioxide 18.0 L Anion Gap 11 BUN 37 H Creatinine 0.76 Estimated GFR 75 L Random Glucose 120 H Calcium 8.8 Phosphorus 2.3 L Magnesium 1.9 Imaging: ITS Impressions Head CTA 04/30/18 00:00 CONCLUSION: 1. No evidence of intraluminal filling defects or steno-occlusive disease. 2. Unremarkable anterior and posterior intracranial circulation 3. No evidence of extracranial carotid or vertebral steno-occlusive disease. Neck CTA 04/30/18 00:00 CONCLUSION: 1. No carotid stenosis. 2. Bilateral upper lobe patchy lung densities. Head CT 04/30/18 11:41 CONCLUSION: 1. No acute intracranial abnormalities. Report was called by [ Dr. Joseph to Dr. Mccarty at 11:57 AM] Chest X-Ray 05/02/18 11:39 CONCLUSION: Interval improvement in bilateral pulmonary infiltrates. Physical Exam: GENERAL: NAD SKIN: Warm and dry. HEAD: Normocephalic. EYES: No scleral icterus. No injection or drainage. NECK: Supple, trachea midline. No JVD or lymphadenopathy. CARDIOVASCULAR: Regular rate and rhythm without murmurs, gallops, or rubs. RESPIRATORY: Breath sounds equal bilaterally. No accessory muscle use. GASTROINTESTINAL: Abdomen soft, non-tender, nondistended. MUSCULOSKELETAL: No cyanosis, Mild BLE edema. NEURO: awake, alert, follows commands. but appears somewhart confused Assessment and Plan - Plan sp new onset seizure Aspiration PNA - improved radiologically and clinically - norml; resp evon on the sputum clx Group C strep bacteremia, low grade, probably PNA source is likely PNA cont levaquine, dc azactam, flagyl, vancomycin for now fu repeat blood clx IDRIS if recurent bacteremia with same isolate fu sputum clx further rec's per clx
[2018-05-04] MEDS: Budesonide-Formoterol 160/4.5 MCG 6 GM Inhaler INH SCH ×2 (02:13→11:02)
[2018-05-04] MEDS: Aztreonam Inj 2 GM in Sodium Chloride 0.9% Inj 100 ML IV.SIG SCH ×2 (05:04→09:15)
[2018-05-04] MEDS: Pantoprazole Inj 40 MG Vial IV.PUSH SCH ×2 (07:21→18:19)
[2018-05-04] MEDS: Levothyroxine 75 MCG Tablet PO SCH (07:22)
[2018-05-04] MEDS: MethylPREDNISolone Sod Succinate Inj 125 MG/2 ML Vial IV.PUSH SCH ×2 (08:52→22:17)
[2018-05-04] MEDS: Psyllium Fiber SF/GF 6 GM Packet PO SCH (08:53)
--- NOTE | 2018-05-04 10:05 | P.PNCC ---
Subjective Subjective Remarks/Hospital Course: This is a 72 yo female patient with a medical history significant for bipolar disorder, COPD, heart failure, and chronic back pain on an intrathecal morphine pump. The patient and presented to ER on 04/27 with concern for AMS x 3 days. Patient is only able to provide a limited amount of history. Patient states that her pump had been being adjusted as an outpatient. Per ER physician who spoke with the , there is no concern or suspicion of overdose. There is no history of alcohol or drug abuse. Per ER documentation ammonia was found to be elevated as an outpatient so the lithium was being weaned off. Patient was hypotensive on admission and was given several boluses of IV fluids. She later developed some pulmonary edema with some shortness of breath. She received 40 mg of IV Lasix. She was hep-locked. Per nursing report on arrival to the ER patient was noted to exhibit some tremors. Concern was for seizure. Per review of EMR, patient presented similarly in November with altered mental status and hypotension. Patient was also found to be bradycardic at that time likely to due to her high doses of antiarrhythmics. On 04/30 around 11 AM patient developed altered mental status and stroke alert was called. Patient was evaluated by Dr. Mccarty. Head CT was negative for bleed. She was transferred back to [facility] but she was flagged when she had nausea vomiting and had an episode of aspiration following which she was hypoxic with O2 sats now in the 70s. Patient was placed on a nonrebreather facemask, a rapid response was called and she was transferred to ICU. Dr. Todd contacted me and requested critical care consult for aspiration and acute respiratory failure with concern that patient may need intubation. I evaluated the patient immediately on being notified following her arrival to the CVICU. At that time she was on a nonrebreather facemask maintaining O2 sats in the mid 90s slightly tachypneic. She was much more awake per nursing staff at the time of my evaluation and appeared to be improving neurologically. Patient could give me her name and knew she was at [facility] and knew it was 2018. She was still confused and disoriented which was close to her baseline mental status prior to her deterioration this morning. Patient has had a leukocytosis and has been on empiric antibiotic coverage including IV Levaquin/Azactam and Flagyl IV was added following epidural aspiration today by Dr. Todd. History was obtained by reviewing records, discussion with Dr. Todd as well as nursing staff at bedside 05/01 Patient is lying in bed in NAD. On 5L oxygen. For cardiac cath this afternoon. On Heparin drip. 05/02 Patient was given Lasix 80mgx1 and Bumex 2mg IV x1 overnight and placed on BIPAP with 55%FIO2. CXR showed worsening airspace disease. s/p cardiac cath yesterday showed normal coronaries. Off Heparin drip 05/03 Patient is off BIPAP down to 3L oxygen. Afebrile. 05/04: The patient is considerably more confused today. She is refusing all oral medications. Heart rate was 120 this morning is now 150 and possibly atrial flutter. Several of her home psychiatric meds have been discontinued but we may be forced to reinstitute some. Her pulmonary secretions appear to have increased and her productive cough worsened. This does not appear to be simple fluid overload but rather sputum production. After reviewing the culture results, Dr. Casey has suggested discontinuing the Azactam, Flagyl, and vancomycin. She recommends continuing the Levaquin and we will do that. Objective Vital Signs / I&O: Vital Signs 05/03/18 11:00 05/03/18 12:00 05/03/18 14:00 Temperature 98.7 F Pulse Rate 123 H 114 H 126 H Respiratory Rate 27 H Blood Pressure 157/93 H Pulse Oximetry 98 05/03/18 16:00 05/03/18 18:00 05/03/18 20:00 Temperature 98.7 F 97.5 F L Pulse Rate 118 H 98 H 98 H Respiratory Rate 30 H 32 H Blood Pressure 144/82 H 135/74 Pulse Oximetry 96 95 05/03/18 20:01 05/04/18 00:00 05/04/18 04:00 Temperature 97.8 F 97.8 F Pulse Rate 112 H 86 122 H Respiratory Rate 16 24 30 H Blood Pressure 140/80 153/91 H Pulse Oximetry 98 97 05/04/18 07:00 05/04/18 08:00 Temperature Pulse Rate Respiratory Rate Blood Pressure Pulse Oximetry 96 96 Intake & Output 05/03/18 05/04/18 05/04/18 18:59 06:59 18:59 Intake Total 767.5 / 767.5 1297.5 / 1297.5 Output Total 725 / 725 475 / 475 Balance 42.5 / 42.5 822.5 / 822.5 Weight 66.7 kg Intake: IV 767.5 / 767.5 817.5 / 817.5 Azactam Inj 2 GM In NS Inj 100 200 / 200 200 / 200 ML @ 200 mls/hr IV.SIG Q8H PAULINE Rx#:[id number] Levaquin 750 mg Premix Inj 150 150 / 150 ML @ 100 mls/hr IV.SIG Q24H PAULINE Rx#:[id number] Vancomycin Inj 1,250 MG In NS 262.5 / 262.5 262.5 / 262.5 Inj 250 ML @ 250 mls/hr IV.SIG Q18H PAULINE Rx#:[id number] Keppra Inj 500 MG In NS Inj 100 105 / 105 ML @ 420 mls/hr IV.SIG Q12H PAULINE Rx#:[id number] Keppra Inj 500 MG In NS Inj 100 105 / 105 ML @ 420 mls/hr IV.SIG Q12H PAULINE Rx#:[id number] Flagyl 500 MG Inj 100 ML @ 100 200 / 200 100 / 100 mls/hr IV.SIG Q8H PAULINE Rx#: [id number] Oral 480 / 480 Output: Urine 475 / 475 Urine Amount (Catheter) 725 / 725 Indwelling Urethral Catheter 725 / 725 Other: Date of Last Bowel Movement 05/02/18 05/02/18 Result Diagrams: 05/03/18 08:37 05/03/18 08:37 Objective Remarks: GENERAL: Patient is 72 yo lying in bed on 5L oxygen. SKIN: Warm and dry. HEAD: Normocephalic. EYES: No scleral icterus. No injection or drainage. NECK: Supple, trachea midline. Airway is widely patent. CARDIOVASCULAR: Regular rate and rhythm without murmurs, gallops, or rubs. RESPIRATORY: Breath sounds equal bilaterally. Bilateral mobile secretions. No crackles. Moderately labored pattern. GASTROINTESTINAL: Abdomen soft, non-tender, nondistended. No guarding. MUSCULOSKELETAL: No cyanosis, +1 edema. Neuro: Awake, immediately responsive but confused. Moves 4 limbs to command. Refuses oral medications. Assessment and Plan - Assessment and Plan Plan: Assessment: 72-year-old female with: 1)Resp Insuff 2)Encephalopathy 3)Aspiration pneumonia 4)COPD with possible exacerbation following aspiration 5)NSTEMI 6)CHF 7)Bipolar disorder 8)Leukocytosis Plan: Neuro: Continue Depakote/Keppra IV. Neurology and psychiatry following. Head CT, CTA brain and neck unremarkable. Awaiting MRI brain. CV: Monitor HR and BP keep MAP>65mmHg s/p Cardiac cath 05/01 showed normal coronaries NTG SL PRN for pain, ASA 81mg daily Echo:EF 30%. Distal anteroseptal, apical and distal inferolateral hypokinesis. PAP 50 mmHg. Pulm: Continue with oxygen keep sats >92% Bronchodilators, Symbicort, Singulair, Solu-Medrol 40 mg IV every 12 hourly NIPPV for resp distress. if there is any worsening of resp status or clinical condition will proceed with intubation Pulmonary following-Dr. Funk CXR 05/02: Improvements in pulm infiltrates Worsening congestion May 04. GI/liver: On PO diet Protonix IV for GI prophylaxis Renal/: Monitor renal function, I/O's, electrolytes replacement per protocol. Lasix 20mg IV daily ID: On IV Levaquin. ID suggest discontinuing Flagyl/Azactam/vanco. On p.o. acyclovir. 04/28 Blood culture Group C Beta strep Strep pneumonia and Legionella urinary Ag negative 05/01 BC: NGTD 05/01 Sputum cx: Pending ID is following-Dr. Casey Endocrine: Watch for hyperglycemia, SSI for glycemic control if needed. Prophylaxis: Protonix/SCDs/Heparin SQ Overall impression: This woman developed an aspiration pneumonitis and has had difficulty clearing the infiltrates. The problem is compounded considerably by her underlying systolic heart failure. At this point I think she is reasonably dried out. Her persistent sputum production and congestion appears to be largely related to an inflammatory process. Oxygen saturation is reasonable on nasal cannula but her work of breathing remains excessive.
[2018-05-04] MEDS ORDERED: dilTIAZem Inj 125 MG in Sodium Chlor 0.9% Inj 100 ML IV.CONT PRN (11:00)
[2018-05-04] MEDS: Estradiol 1 MG Tablet PO SCH (11:00)
[2018-05-04] MEDS: Docusate Sodium 100 MG Capsule PO SCH (11:00)
[2018-05-04] MEDS: Heparin - SQ 10,000 UNITS/ML Vial SQ SCH (11:01)
[2018-05-04] MEDS: Montelukast 10 MG Tablet PO SCH (11:02)
[2018-05-04] MEDS: Acyclovir 200 MG Capsule PO SCH (11:02)
[2018-05-04] MEDS: guaiFENesin 600 MG ER Tablet PO SCH (11:02)
[2018-05-04] MEDS: levETIRAcetam 500 MG Tablet PO SCH ×2 (11:02→20:37)
[2018-05-04] MEDS ORDERED: Pharmacy Ordered Lab Info OTHER ONE (11:45)
[2018-05-04] MEDS: LEVETIRACETAM IV.SIG SCH (13:28)
[2018-05-04] MEDS: SODIUM CHLOR 0.9% IV.SIG SCH (13:28)
--- NOTE | 2018-05-04 18:35 | P.PNID ---
Subjective Remarks: pt is on NC O2 No cough Taking full diet w/o choking pt essentially refused to be examined Antibiotics: levaquin Allergies/Adverse Reactions: Allergies penicillin G Allergy (Severe, Verified 04/27/18 14:10) hives Sulfa (Sulfonamide Antibiotics) Allergy (Severe, Verified 04/27/18 14:10) hives latex Allergy (Intermediate, Verified 04/27/18 14:10) rash piroxicam Allergy (Unknown, Verified 04/27/18 14:10) Hives cyclobenzaprine Adverse Reaction (Intermediate, Verified 04/27/18 14:10) PAU hydroxyzine Adverse Reaction (Unknown, Verified 04/27/18 14:10) Hives Objective Vital Signs 05/03/18 20:00 05/03/18 20:01 05/04/18 00:00 Temperature 97.5 F L 97.8 F Pulse Rate 98 H 112 H 86 Respiratory Rate 32 H 16 24 Blood Pressure 135/74 140/80 Pulse Oximetry 95 98 05/04/18 04:00 05/04/18 07:00 05/04/18 08:00 Temperature 97.8 F 99.6 F Pulse Rate 122 H 142 H Respiratory Rate 30 H 30 H Blood Pressure 153/91 H 148/97 H Pulse Oximetry 97 96 96 05/04/18 12:00 05/04/18 16:00 Temperature 98.7 F 99.2 F Pulse Rate 122 H 116 H Respiratory Rate 32 H 35 H Blood Pressure 143/76 H 146/89 H Pulse Oximetry 93 L 95 Intake & Output 05/03/18 05/04/18 05/04/18 18:59 06:59 18:59 Intake Total 767.5 / 767.5 1297.5 / 1297.5 680 / 680 Output Total 725 / 725 475 / 475 750 / 750 Balance 42.5 / 42.5 822.5 / 822.5 -70 / -70 Weight 66.7 kg Intake: IV 767.5 / 767.5 817.5 / 817.5 200 / 200 Azactam Inj 2 GM In NS Inj 100 200 / 200 200 / 200 100 / 100 ML @ 200 mls/hr IV.SIG Q8H PAULINE Rx#:[id number] Levaquin 750 mg Premix Inj 150 150 / 150 ML @ 100 mls/hr IV.SIG Q24H PAULINE Rx#:[id number] Vancomycin Inj 1,250 MG In NS 262.5 / 262.5 262.5 / 262.5 Inj 250 ML @ 250 mls/hr IV.SIG Q18H PAULINE Rx#:[id number] Keppra Inj 500 MG In NS Inj 100 105 / 105 ML @ 420 mls/hr IV.SIG Q12H PAULINE Rx#:[id number] Keppra Inj 500 MG In NS Inj 100 105 / 105 ML @ 420 mls/hr IV.SIG Q12H PAULINE Rx#:[id number] Flagyl 500 MG Inj 100 ML @ 100 200 / 200 100 / 100 100 / 100 mls/hr IV.SIG Q8H PAULINE Rx#: [id number] Oral 480 / 480 480 / 480 Output: Urine 475 / 475 Urine Amount (Catheter) 725 / 725 750 / 750 Indwelling Urethral Catheter 725 / 725 750 / 750 Other: Date of Last Bowel Movement 05/02/18 05/02/18 05/02/18 # Bowel Movements 0 05/01/18 15:43 Blood - Peripheral Aerobic Blood Culture - Preliminary No growth in 3 days 05/01/18 15:43 Blood - Peripheral Anaerobic Blood Culture - Preliminary No growth in 3 days 05/01/18 15:38 Blood - Peripheral Aerobic Blood Culture - Preliminary No growth in 3 days 05/01/18 15:38 Blood - Peripheral Anaerobic Blood Culture - Preliminary No growth in 3 days 04/28/18 17:00 Blood - Peripheral Aerobic Blood Culture - Final No growth in 5 days 04/28/18 17:00 Blood - Peripheral Anaerobic Blood Culture - Final No growth in 5 days 04/28/18 16:55 Blood - Peripheral Aerobic Blood Culture - Final Beta Streptococcus Group C 04/28/18 16:55 Blood - Peripheral Anaerobic Blood Culture - Final No growth in 5 days 05/01/18 21:00 Sputum - Expectorated Sputum Gram Stain - Final 05/01/18 21:00 Sputum - Expectorated Sputum Sputum Culture - Final 05/01/18 18:45 Urine - Catheterized Urine Streptococcus pneumoniae Antigen ( M - Final Presumptive negative for streptococcus pneumoniae antigen, suggesting no current or recent infection. Infection due to Streptococcus pneumoniae cannot be ruled out since the antigen present in the sample may be below the detection limit of the test. 05/01/18 18:45 Urine - Catheterized Urine Legionella Antigen - Final Presumptive negative for Legionella pneumophila serogroup 1 antigen in urine, suggesting no recent or recurrent infection. Infection due to Legionella cannot be ruled out since other serogroups and species may cause disease, antigen may not be present in urine in early infection, and the level of antigen present in the urine may be below the detection limit of the test. Lab - Hematology Results 05/03/18 08:37 WBC 19.5 H RBC 3.12 L Hgb 11.0 L Hct 31.0 L MCV 99.3 MCH 35.2 H MCHC 35.5 RDW 13.0 Plt Count 286 MPV 9.3 Neut % (Auto) 88.8 H Lymph % (Auto) 5.2 L [place] % (Auto) 5.7 Eos % (Auto) 0.1 Baso % (Auto) 0.2 Neut # (Auto) 17.4 H Lymph # (Auto) 1.0 [place] # (Auto) 1.1 H Eos # (Auto) 0.0 Baso # (Auto) 0.0 WBC Differential . Differential Comment Auto diff final Hematology Comments Lab - Chemistry Results 05/02/18 05/03/18 19:51 08:37 Sodium 145 Potassium 3.7 4.1 Chloride 116 H D Carbon Dioxide 18.0 L Anion Gap 11 BUN 37 H Creatinine 0.76 Estimated GFR 75 L Random Glucose 120 H Calcium 8.8 Phosphorus 2.3 L Magnesium 1.9 Imaging: ITS Impressions Head CTA 04/30/18 00:00 CONCLUSION: 1. No evidence of intraluminal filling defects or steno-occlusive disease. 2. Unremarkable anterior and posterior intracranial circulation 3. No evidence of extracranial carotid or vertebral steno-occlusive disease. Neck CTA 04/30/18 00:00 CONCLUSION: 1. No carotid stenosis. 2. Bilateral upper lobe patchy lung densities. Head CT 04/30/18 11:41 CONCLUSION: 1. No acute intracranial abnormalities. Report was called by [ Dr. Joseph to Dr. Mccarty at 11:57 AM] Chest X-Ray 05/02/18 11:39 CONCLUSION: Interval improvement in bilateral pulmonary infiltrates. Physical Exam: GENERAL: NAD SKIN:no rash HEAD: Normocephalic. EYES: No scleral icterus. No injection or drainage. NECK: Supple, trachea midline. No JVD or lymphadenopathy. CARDIOVASCULAR: Regular rate and rhythm on monitor RESPIRATORY: Breath unlaboured. No accessory muscle use. Pt sounds with congestion, likel she has inefficient cough GASTROINTESTINAL: refused exam MUSCULOSKELETAL: No cyanosis, Mild BLE edema. NEURO: awake, alert, follows commands. but appears somewhart confused Assessment and Plan - Plan sp new onset seizure Aspiration PNA - improved radiologically and clinically - norml; resp evon on the sputum clx Group C strep bacteremia, low grade, probably PNA source is likely PNA cont levaquine, fu repeat blood clx IDRIS if recurent bacteremia with same isolate fu sputum clx further rec's per clx aleksey ramirez Johnson
[2018-05-04] MEDS: Divalproex 500 MG ER Tablet PO SCH (20:37)
[2018-05-05] MEDS: Psyllium Fiber SF/GF 6 GM Packet PO SCH ×3 (00:17→20:53)
[2018-05-05] MEDS: Budesonide-Formoterol 160/4.5 MCG 6 GM Inhaler INH SCH ×3 (00:17→21:06)
[2018-05-05] MEDS: Docusate Sodium 100 MG Capsule PO SCH ×3 (00:17→20:53)
[2018-05-05] MEDS: guaiFENesin 600 MG ER Tablet PO SCH ×3 (00:17→21:06)
[2018-05-05] MEDS: Heparin - SQ 10,000 UNITS/ML Vial SQ SCH ×3 (00:17→20:53)
--- NOTE | 2018-05-05 03:47 | XR ---
EXAM DATE: 05/05/2018 3:27 AM EDT AGE/SEX: 72 years / Female INDICATIONS: Shortness of breath. CLINICAL DATA: This is the patient's subsequent encounter. Patient reports that signs and symptoms h ave been present for 1 week and indicates a pain score of Nonresponsive. MEDICAL/SURGICAL HISTORY: . Chronic obstructive pulmonary disease. Asthma. Cardiovascular disea se. . Spinal stimulator COMPARISON: [facility] [place], CHEST 1V SINGLE AP, 05/02/2018. [facility] [place], CHEST 1V SINGLE AP, 05/02/2018. . FINDINGS: Portable AP view of the chest demonstrates a normal-sized cardiac silhouette. There is patchy bilater al airspace consolidation most prominent in the right upper lobe and left lung base. No pneumothorax is identified. The bones and soft tissues demonstrate no acute abnormality. CONCLUSION: Stable chest x-ray with bilateral airspace consolidation. Electronically signed by: Medardo Zamudio MD 05/05/2018 3:46 AM EDT
[2018-05-05] MEDS: Pantoprazole Inj 40 MG Vial IV.PUSH SCH ×2 (05:26→17:38)
[2018-05-05] MEDS: Levothyroxine 75 MCG Tablet PO SCH (05:27)
[2018-05-05 05:37] LABS: Baso % (Auto) 0.2 % (0.0-2.0); Hematocrit 34.9 % (35.0-46.0); Hemoglobin 11.8 gm/dL (11.6-15.3); Lymph # (Auto) 1.8 th/mm3 (1.0-4.8); Lymph % (Auto) 10.1 % (9.0-44.0); Mean Corpuscular HGB Conc 33.8 % (32.0-36.0); Mean Corpuscular Hemoglobin 33.7 pg (27.0-34.0); Mean Corpuscular Volume 99.9 fL (80.0-100.0); Mean Platelet Volume 8.8 fL (7.0-11.0); Mono # (Auto) 0.6 th/mm3 (0.0-0.9); Mono % (Auto) 3.1 % (0.0-8.0); Neut # (Auto) 15.2 th/mm3 (1.8-7.7); Neut % (Auto) 86.6 % (16.0-70.0); Platelet Count 410 th/mm3 (150-450); Red Cell Distribution Width 13.2 % (11.6-17.2); White Blood Count 17.6 th/mm3 (4.0-11.0)
[2018-05-05 05:47] LABS: Calcium 8.4 mg/dL (8.5-10.1); Potassium 4.3 meq/L (3.5-5.1)
[2018-05-05] MEDS: levETIRAcetam 500 MG Tablet PO SCH ×2 (08:24→21:06)
[2018-05-05] MEDS: Estradiol 1 MG Tablet PO SCH (08:24)
[2018-05-05] MEDS: Acyclovir 200 MG Capsule PO SCH (08:24)
[2018-05-05] MEDS: Montelukast 10 MG Tablet PO SCH (08:24)
[2018-05-05] MEDS: MethylPREDNISolone Sod Succinate Inj 125 MG/2 ML Vial IV.PUSH SCH (08:25)
[2018-05-05 08:32] LABS: Lymphocytes 9 % (9-44); Monocytes 8 % (0-8); Myelocytes 3 % (0-0)
[2018-05-05 08:33] LABS: Platelet Estimate Normal (Normal); Polychromasia 2.1 % (0.0-1.9)
--- NOTE | 2018-05-05 11:11 | P.PNCC ---
Subjective Subjective Remarks/Hospital Course: This is a 72 yo female patient with a medical history significant for bipolar disorder, COPD, heart failure, and chronic back pain on an intrathecal morphine pump. The patient and presented to ER on 04/27 with concern for AMS x 3 days. Patient is only able to provide a limited amount of history. Patient states that her pump had been being adjusted as an outpatient. Per ER physician who spoke with the , there is no concern or suspicion of overdose. There is no history of alcohol or drug abuse. Per ER documentation ammonia was found to be elevated as an outpatient so the lithium was being weaned off. Patient was hypotensive on admission and was given several boluses of IV fluids. She later developed some pulmonary edema with some shortness of breath. She received 40 mg of IV Lasix. She was hep-locked. Per nursing report on arrival to the ER patient was noted to exhibit some tremors. Concern was for seizure. Per review of EMR, patient presented similarly in November with altered mental status and hypotension. Patient was also found to be bradycardic at that time likely to due to her high doses of antiarrhythmics. On 04/30 around 11 AM patient developed altered mental status and stroke alert was called. Patient was evaluated by Dr. Mccarty. Head CT was negative for bleed. She was transferred back to [facility] but she was flagged when she had nausea vomiting and had an episode of aspiration following which she was hypoxic with O2 sats now in the 70s. Patient was placed on a nonrebreather facemask, a rapid response was called and she was transferred to ICU. Dr. Todd contacted me and requested critical care consult for aspiration and acute respiratory failure with concern that patient may need intubation. I evaluated the patient immediately on being notified following her arrival to the CVICU. At that time she was on a nonrebreather facemask maintaining O2 sats in the mid 90s slightly tachypneic. She was much more awake per nursing staff at the time of my evaluation and appeared to be improving neurologically. Patient could give me her name and knew she was at [facility] and knew it was 2018. She was still confused and disoriented which was close to her baseline mental status prior to her deterioration this morning. Patient has had a leukocytosis and has been on empiric antibiotic coverage including IV Levaquin/Azactam and Flagyl IV was added following epidural aspiration today by Dr. Todd. History was obtained by reviewing records, discussion with Dr. Todd as well as nursing staff at bedside 05/01 Patient is lying in bed in NAD. On 5L oxygen. For cardiac cath this afternoon. On Heparin drip. 05/02 Patient was given Lasix 80mgx1 and Bumex 2mg IV x1 overnight and placed on BIPAP with 55%FIO2. CXR showed worsening airspace disease. s/p cardiac cath yesterday showed normal coronaries. Off Heparin drip 05/03 Patient is off BIPAP down to 3L oxygen. Afebrile. 05/04: The patient is considerably more confused today. She is refusing all oral medications. Heart rate was 120 this morning is now 150 and possibly atrial flutter. Several of her home psychiatric meds have been discontinued but we may be forced to reinstitute some. Her pulmonary secretions appear to have increased and her productive cough worsened. This does not appear to be simple fluid overload but rather sputum production. After reviewing the culture results, Dr. Casey has suggested discontinuing the Azactam, Flagyl, and vancomycin. She recommends continuing the Levaquin and we will do that. 05/05: Chest x-ray clearing slowly. Breathing pattern more comfortable but continued mobile secretions. She is tolerating diuresis well. Not acting septic. Will restart her Effexor as she clearly needs it. Continue present course, moved to floor shortly. Objective Vital Signs / I&O: Vital Signs 05/04/18 12:00 05/04/18 16:00 05/04/18 20:00 Temperature 98.7 F 99.2 F 97.4 F L Pulse Rate 122 H 116 H 88 Respiratory Rate 32 H 35 H 26 H Blood Pressure 143/76 H 146/89 H 149/58 H Pulse Oximetry 93 L 95 97 05/05/18 00:00 05/05/18 04:00 05/05/18 08:00 Temperature 98.4 F 97.8 F 99.1 F Pulse Rate 114 H 98 H 104 H Respiratory Rate 22 20 20 Blood Pressure 140/84 145/85 H 149/93 H Pulse Oximetry 95 98 96 Intake & Output 05/04/18 05/05/18 05/05/18 18:59 06:59 18:59 Intake Total 830 / 830 720 / 720 Output Total 750 / 750 475 / 475 Balance 80 / 80 245 / 245 Weight 65 kg Intake: IV 350 / 350 Azactam Inj 2 GM In NS Inj 100 100 / 100 ML @ 200 mls/hr IV.SIG Q8H PAULINE Rx#:[id number] Levaquin 750 mg Premix Inj 150 150 / 150 ML @ 100 mls/hr IV.SIG Q24H PAULINE Rx#:[id number] Flagyl 500 MG Inj 100 ML @ 100 100 / 100 mls/hr IV.SIG Q8H PAULINE Rx#: [id number] Oral 480 / 480 720 / 720 Output: Urine Amount (Catheter) 750 / 750 475 / 475 Indwelling Urethral Catheter 750 / 750 475 / 475 Other: Date of Last Bowel Movement 05/02/18 05/05/18 05/05/18 # Bowel Movements 0 1 # Incontinent Bowel Movements 1 Result Diagrams: 05/05/18 04:49 05/05/18 04:49 Objective Remarks: GENERAL: Patient is 72 yo lying in bed on 5L oxygen. SKIN: Warm and dry. HEAD: Normocephalic. EYES: No scleral icterus. No injection or drainage. NECK: Supple, trachea midline. Airway is widely patent. CARDIOVASCULAR: Regular rate and rhythm without murmurs, gallops, or rubs. RESPIRATORY: Breath sounds equal bilaterally. Bilateral mobile secretions. No crackles. Non-labored pattern. GASTROINTESTINAL: Abdomen soft, non-tender, nondistended. No guarding. MUSCULOSKELETAL: No cyanosis, +1 edema. Neuro: Awake, conversant. Tangential thought process and occasionally spurious logic. Moves 4 limbs to command. Assessment and Plan - Assessment and Plan Plan: Assessment: 72-year-old female with: 1)Resp Insuff 2)Encephalopathy 3)Aspiration pneumonia 4)COPD with possible exacerbation following aspiration 5)NSTEMI 6)CHF 7)Bipolar disorder 8)Leukocytosis Plan: Neuro: Continue Depakote/Keppra IV. Neurology and psychiatry following. Head CT, CTA brain and neck unremarkable. CV: Monitor HR and BP keep MAP>65mmHg s/p Cardiac cath 05/01 showed normal coronaries NTG SL PRN for pain, ASA 81mg daily Echo:EF 30%. Distal anteroseptal, apical and distal inferolateral hypokinesis. PAP 50 mmHg. Check BNP in a.m. Pulm: Continue with oxygen keep sats >92% Bronchodilators, Symbicort, Singulair, Solu-Medrol 40 mg IV every 12 hourly NIPPV for resp distress. if there is any worsening of resp status or clinical condition will proceed with intubation Pulmonary following-Dr. Funk CXR 05/02: Improvements in pulm infiltrates Worsening congestion May 04, improved today. GI/liver: On PO diet Protonix IV for GI prophylaxis Renal/: Monitor renal function, I/O's, electrolytes replacement per protocol. Lasix 20mg IV daily, continue. ID: On IV Levaquin. ID suggest discontinuing Flagyl/Azactam/vanco. On p.o. acyclovir. 04/28 Blood culture Group C Beta strep Strep pneumonia and Legionella urinary Ag negative 05/01 BC: NGTD 05/01 Sputum cx: Pending ID is following-Dr. Casey Endocrine: Watch for hyperglycemia, SSI for glycemic control if needed. Prophylaxis: Protonix/SCDs/Heparin SQ Overall impression: This woman developed an aspiration pneumonitis and has had difficulty clearing the infiltrates. The problem is compounded considerably by her underlying systolic heart failure. At this point I think she is reasonably dried out. Her persistent sputum production and congestion is worrisome but I do not think she is in heart failure at this point. Oxygen saturation is reasonable on nasal cannula and her work of breathing remains acceptable.
[2018-05-05] MEDS: dilTIAZem CD 180 MG Capsule PO SCH (12:32)
[2018-05-05] MEDS: Venlafaxine XR 75 MG Capsule PO SCH (14:07)
[2018-05-05] MEDS: Divalproex 500 MG ER Tablet PO SCH (20:53)
[2018-05-06] MEDS: Levothyroxine 75 MCG Tablet PO SCH (05:59)
[2018-05-06] MEDS: Pantoprazole Inj 40 MG Vial IV.PUSH SCH (05:59)
--- NOTE | 2018-05-06 08:13 | P.PNCC ---
Subjective Subjective Remarks/Hospital Course: This is a 72 yo female patient with a medical history significant for bipolar disorder, COPD, heart failure, and chronic back pain on an intrathecal morphine pump. The patient and presented to ER on 04/27 with concern for AMS x 3 days. Patient is only able to provide a limited amount of history. Patient states that her pump had been being adjusted as an outpatient. Per ER physician who spoke with the , there is no concern or suspicion of overdose. There is no history of alcohol or drug abuse. Per ER documentation ammonia was found to be elevated as an outpatient so the lithium was being weaned off. Patient was hypotensive on admission and was given several boluses of IV fluids. She later developed some pulmonary edema with some shortness of breath. She received 40 mg of IV Lasix. She was hep-locked. Per nursing report on arrival to the ER patient was noted to exhibit some tremors. Concern was for seizure. Per review of EMR, patient presented similarly in November with altered mental status and hypotension. Patient was also found to be bradycardic at that time likely to due to her high doses of antiarrhythmics. On 04/30 around 11 AM patient developed altered mental status and stroke alert was called. Patient was evaluated by Dr. Mccarty. Head CT was negative for bleed. She was transferred back to [facility] but she was flagged when she had nausea vomiting and had an episode of aspiration following which she was hypoxic with O2 sats now in the 70s. Patient was placed on a nonrebreather facemask, a rapid response was called and she was transferred to ICU. Dr. Todd contacted me and requested critical care consult for aspiration and acute respiratory failure with concern that patient may need intubation. I evaluated the patient immediately on being notified following her arrival to the CVICU. At that time she was on a nonrebreather facemask maintaining O2 sats in the mid 90s slightly tachypneic. She was much more awake per nursing staff at the time of my evaluation and appeared to be improving neurologically. Patient could give me her name and knew she was at [facility] and knew it was 2018. She was still confused and disoriented which was close to her baseline mental status prior to her deterioration this morning. Patient has had a leukocytosis and has been on empiric antibiotic coverage including IV Levaquin/Azactam and Flagyl IV was added following epidural aspiration today by Dr. Todd. History was obtained by reviewing records, discussion with Dr. Todd as well as nursing staff at bedside 05/01 Patient is lying in bed in NAD. On 5L oxygen. For cardiac cath this afternoon. On Heparin drip. 05/02 Patient was given Lasix 80mgx1 and Bumex 2mg IV x1 overnight and placed on BIPAP with 55%FIO2. CXR showed worsening airspace disease. s/p cardiac cath yesterday showed normal coronaries. Off Heparin drip 05/03 Patient is off BIPAP down to 3L oxygen. Afebrile. 05/04: The patient is considerably more confused today. She is refusing all oral medications. Heart rate was 120 this morning is now 150 and possibly atrial flutter. Several of her home psychiatric meds have been discontinued but we may be forced to reinstitute some. Her pulmonary secretions appear to have increased and her productive cough worsened. This does not appear to be simple fluid overload but rather sputum production. After reviewing the culture results, Dr. Casey has suggested discontinuing the Azactam, Flagyl, and vancomycin. She recommends continuing the Levaquin and we will do that. 05/05: Chest x-ray clearing slowly. Breathing pattern more comfortable but continued mobile secretions. She is tolerating diuresis well. Not acting septic. Will restart her Effexor as she clearly needs it. Continue present course, moved to floor shortly. 05/06: Patient is breathing comfortably. Not in any acute distress. Chest x- ray today is pending. Sputum culture pending Objective Vital Signs / I&O: Vital Signs 05/05/18 12:00 05/05/18 16:00 05/05/18 20:00 Temperature 97.6 F 98 F 97.9 F Pulse Rate 100 H 101 H 88 Respiratory Rate 23 20 18 Blood Pressure 137/83 151/80 H 148/76 H Pulse Oximetry 96 97 99 05/06/18 00:00 05/06/18 04:00 05/06/18 07:45 Temperature 98.3 F Pulse Rate 89 90 Respiratory Rate 14 13 Blood Pressure 143/69 H 147/74 H Pulse Oximetry 99 99 98 Intake & Output 05/05/18 05/06/18 05/06/18 18:59 06:59 18:59 Intake Total 630 / 630 200 / 200 Output Total 1000 / 1000 600 / 600 Balance -370 / -370 -400 / -400 Weight 65 kg 64.5 kg Intake: IV 150 / 150 Levaquin 750 mg Premix Inj 150 150 / 150 ML @ 100 mls/hr IV.SIG Q24H PAULINE Rx#:[id number] Oral 480 / 480 200 / 200 Output: Urine 1000 / 1000 600 / 600 Other: Date of Last Bowel Movement 05/05/18 05/05/18 # Bowel Movements 1 # Incontinent Bowel Movements 1 Weight On Admission 65 kg Result Diagrams: 05/05/18 04:49 05/05/18 04:49 Objective Remarks: GENERAL: Patient is 72 yo lying in bed on NC oxygen. SKIN: Warm and dry. HEAD: Normocephalic. EYES: No scleral icterus. No injection or drainage. NECK: Supple, trachea midline. Airway is widely patent. CARDIOVASCULAR: Regular rate and rhythm without murmurs, gallops, or rubs. RESPIRATORY: Breath sounds equal bilaterally. No crackles. Non-labored pattern. GASTROINTESTINAL: Abdomen soft, non-tender, nondistended. No guarding. MUSCULOSKELETAL: No cyanosis, +1 edema. Neuro: Awake, conversant. Moves 4 limbs to command. Poor insight into the disease Assessment and Plan - Assessment and Plan Plan: Assessment: 72-year-old female with: 1)Resp Insuff 2)Encephalopathy 3)Aspiration pneumonia 4)COPD with possible exacerbation following aspiration 5)NSTEMI 6)CHF 7)Bipolar disorder 8)Leukocytosis Plan: Neuro: Continue Depakote/Keppra IV. Neurology and psychiatry following. Head CT, CTA brain and neck unremarkable. Venlafaxine restarted yesterday CV: Monitor HR and BP keep MAP>65mmHg s/p Cardiac cath 05/01 showed normal coronaries NTG SL PRN for pain, ASA 81mg daily Echo:EF 30%. Distal anteroseptal, apical and distal inferolateral hypokinesis. PAP 50 mmHg. BNP in a.m. Pulm: Continue with oxygen keep sats >92% Bronchodilators, Symbicort, Singulair, Solu-Medrol 40 mg IV every 12 hourly NIPPV for resp distress. Pulmonary following-Dr. Funk CXR 05/05: stable pulm infiltrates. F/U CXR today GI/liver: On PO diet Protonix IV for GI prophylaxis-change to PO Renal/: Monitor renal function, I/O's, electrolytes replacement per protocol. Lasix 20mg IV daily, continue. ID: On IV Levaquin. (DCd Flagyl/Azactam/vanco). On p.o. acyclovir. 04/28 Blood culture Group C Beta strep Strep pneumonia and Legionella urinary Ag negative 05/01 BC: NGTD 05/01 Sputum cx: Pending ID is following-Dr. Casey Endocrine: Watch for hyperglycemia, SSI for glycemic control if needed. Prophylaxis: Protonix/SCDs/Heparin SQ Overall impression: Patient developed an aspiration pneumonitis and has had difficulty clearing the infiltrates. The problem is compounded considerably by her underlying systolic heart failure. At this point I think she is reasonably dried out. Oxygen saturation is reasonable on nasal cannula and her work of breathing remains acceptable. Transferred to [facility] with telemetry. Consult hospitalist to assume care [phone]
[2018-05-06] MEDS: dilTIAZem CD 180 MG Capsule PO SCH (09:42)
[2018-05-06] MEDS: Venlafaxine XR 75 MG Capsule PO SCH (09:42)
[2018-05-06] MEDS: Acyclovir 200 MG Capsule PO SCH (09:43)
[2018-05-06] MEDS: levETIRAcetam 500 MG Tablet PO SCH ×2 (09:43→21:30)
[2018-05-06] MEDS: Docusate Sodium 100 MG Capsule PO SCH ×2 (10:16→21:31)
[2018-05-06] MEDS: Heparin - SQ 10,000 UNITS/ML Vial SQ SCH ×2 (10:16→21:31)
[2018-05-06] MEDS: Estradiol 1 MG Tablet PO SCH (10:16)
[2018-05-06] MEDS: Budesonide-Formoterol 160/4.5 MCG 6 GM Inhaler INH SCH ×2 (10:17→21:31)
[2018-05-06] MEDS: guaiFENesin 600 MG ER Tablet PO SCH ×2 (10:17→21:30)
[2018-05-06] MEDS: Psyllium Fiber SF/GF 6 GM Packet PO SCH ×2 (10:17→21:31)
[2018-05-06] MEDS: Montelukast 10 MG Tablet PO SCH (10:17)
--- NOTE | 2018-05-06 20:05 | P.PNPL ---
Subjective Interval history: 72 YOWF with Br asthma, COPD, Bipolar disorder, AM On Levaquin,Flagyl and Azactem Weaned to RA gets agitated and uncoperative Sleeping at this time Physical Exam Vital signs: Vital Signs 05/06/18 00:00 05/06/18 04:00 05/06/18 06:00 Temperature 98.3 F Pulse Rate 89 90 98 H Respiratory Rate 14 13 22 Blood Pressure 143/69 H 147/74 H Pulse Oximetry 99 99 100 05/06/18 06:23 05/06/18 07:00 05/06/18 07:23 Temperature Pulse Rate 105 H 101 H 98 H Respiratory Rate 36 H 29 H 27 H Blood Pressure 149/77 H 152/77 H Pulse Oximetry 86 L 96 97 05/06/18 07:45 05/06/18 08:00 05/06/18 08:23 Temperature 97.9 F Pulse Rate 91 H 96 H Respiratory Rate 14 15 Blood Pressure 152/75 H Pulse Oximetry 98 98 97 05/06/18 09:00 05/06/18 09:23 05/06/18 10:23 Temperature Pulse Rate 99 H 100 H 94 H Respiratory Rate 15 17 18 Blood Pressure 153/72 H 147/72 H Pulse Oximetry 96 96 99 05/06/18 11:23 05/06/18 12:00 05/06/18 15:00 Temperature 98.1 F Pulse Rate 90 99 H 88 Respiratory Rate 18 25 H 27 H Blood Pressure 147/70 H 150/72 H Pulse Oximetry 100 97 05/06/18 16:00 05/06/18 16:41 05/06/18 18:00 Temperature 98.2 F Pulse Rate 95 H 93 H 81 Respiratory Rate 25 H 9 L 31 H Blood Pressure 150/60 H 152/71 H Pulse Oximetry 96 Intake & Output 05/06/18 05/06/18 05/07/18 06:59 18:59 06:59 Intake Total 200 / 200 0 / 0 Output Total 600 / 600 475 / 475 Balance -400 / -400 -475 / -475 Weight 64.5 kg Intake: Oral 200 / 200 0 / 0 Output: Urine 600 / 600 Urine Amount (Catheter) 475 / 475 Indwelling Urethral Catheter 475 / 475 Other: Date of Last Bowel Movement 05/05/18 05/05/18 GENERAL: Elderly WF,NAD SKIN: Warm and dry. HEAD: Normocephalic. EYES: No scleral icterus. No injection or drainage. NECK: Supple, trachea midline. No JVD or lymphadenopathy. CARDIOVASCULAR: Regular rate and rhythm without murmurs, gallops, or rubs. RESPIRATORY: Breath sounds equal bilaterally. No accessory muscle use. GASTROINTESTINAL: Abdomen soft, non-tender, nondistended. MUSCULOSKELETAL: No cyanosis, or edema. BACK: Nontender without obvious deformity. No CVA tenderness. - Urinary Catheter Management Straight Cath placed during this visit: yes Reason for continuing: Hourly intake/output Insertion date: 04/27/18 Insertion time: 16:10 Indwelling Urethral Catheter Cath placed during this visit: yes Reason for continuing: Acute urinary retention Insertion date: 04/27/18 Assessment and Plan - Plan IMPRESSION: 1. Pulmonary edema is significantly better. 2. COPD/bronchial asthma. 3. Altered mental status is improving. 4. Chronic pain. 5. Congestive heart failure. 6. Bipolar disorder. 7. Resp failure 7. Aspiration PLAN: Supplement 02 Cont Abx Aerosol nebs Symbicort 2 puffs bid
[2018-05-06] MEDS: Divalproex 500 MG ER Tablet PO SCH (21:30)
[2018-05-07 04:24] LABS: Baso % (Auto) 0.1 % (0.0-2.0); Eos # (Auto) 0.2 th/mm3 (0.0-0.4); Hematocrit 34.2 % (35.0-46.0); Hemoglobin 11.3 gm/dL (11.6-15.3); Mean Corpuscular HGB Conc 33.1 % (32.0-36.0); Mean Corpuscular Hemoglobin 33.2 pg (27.0-34.0); Mean Corpuscular Volume 100.1 fL (80.0-100.0); Mean Platelet Volume 8.6 fL (7.0-11.0); Mono # (Auto) 1.4 th/mm3 (0.0-0.9); Mono % (Auto) 8.2 % (0.0-8.0); Neut # (Auto) 12.9 th/mm3 (1.8-7.7); Neut % (Auto) 73.7 % (16.0-70.0); Platelet Count 411 th/mm3 (150-450); Red Blood Count 3.42 mil/mm3 (4.00-5.30); Red Cell Distribution Width 13.1 % (11.6-17.2); White Blood Count 17.5 th/mm3 (4.0-11.0)
[2018-05-07 04:35] LABS: Albumin 2.1 g/dL (3.4-5.0); Anion Gap 9 meq/L (5-15); Aspartate Aminotransferase 21 U/L (15-37); Blood Urea Nitrogen 36 mg/dL (7-18); Calcium 8.2 mg/dL (8.5-10.1); Carbon Dioxide 25.5 meq/L (21.0-32.0); Chloride 109 meq/L (98-107); Glomerular Filtration Rate Greater Than 89 mL/min (>89); Glucose,Random 121 mg/dL (74-106); Potassium 4.3 meq/L (3.5-5.1); Sodium 143 meq/L (136-145)
[2018-05-07 04:37] LABS: Alanine Aminotransferase 15 U/L (10-53)
[2018-05-07 04:39] LABS: Alkaline Phosphatase 44 U/L (45-117)
[2018-05-07] MEDS: Levothyroxine 75 MCG Tablet PO SCH (05:40)
[2018-05-07] MEDS: Acyclovir 200 MG Capsule PO SCH (12:14)
[2018-05-07] MEDS: Furosemide 20 MG Tablet PO SCH (12:15)
[2018-05-07] MEDS: Venlafaxine XR 75 MG Capsule PO SCH (12:15)
[2018-05-07] MEDS: dilTIAZem CD 180 MG Capsule PO SCH (12:15)
[2018-05-07] MEDS: levETIRAcetam 500 MG Tablet PO SCH ×2 (12:16→20:46)
[2018-05-07] MEDS: Estradiol 1 MG Tablet PO SCH (12:16)
[2018-05-07] MEDS: Psyllium Fiber SF/GF 6 GM Packet PO SCH ×2 (12:17→20:47)
[2018-05-07] MEDS: Heparin - SQ 10,000 UNITS/ML Vial SQ SCH ×2 (12:17→20:47)
[2018-05-07] MEDS: guaiFENesin 600 MG ER Tablet PO SCH ×2 (12:17→20:46)
[2018-05-07] MEDS: Docusate Sodium 100 MG Capsule PO SCH ×2 (12:17→20:47)
[2018-05-07] MEDS: Budesonide-Formoterol 160/4.5 MCG 6 GM Inhaler INH SCH ×2 (12:18→20:48)
[2018-05-07] MEDS: Montelukast 10 MG Tablet PO SCH (12:18)
--- NOTE | 2018-05-07 12:55 | P.PNIM ---
Subjective Interval history: Reports she does not want an IV restarted. She understands the risk of not having IV during the hospitalization including not being able to administer acute meds if she decompensates. She states that she had no problems with urinating at home. She is feeling better. Physical Exam Vital signs: Vital Signs 05/06/18 15:00 05/06/18 16:00 05/06/18 16:41 Temperature 98.2 F Pulse Rate 88 95 H 93 H Respiratory Rate 27 H 25 H 9 L Blood Pressure 150/60 H 152/71 H Pulse Oximetry 96 05/06/18 18:00 05/06/18 20:00 05/07/18 00:00 Temperature 98.9 F 98.5 F Pulse Rate 81 99 H 81 Respiratory Rate 31 H 13 21 Blood Pressure 144/67 H 154/74 H Pulse Oximetry 100 100 05/07/18 04:00 05/07/18 07:00 05/07/18 08:00 Temperature 98.8 F Pulse Rate 79 76 Respiratory Rate 12 12 13 Blood Pressure 144/65 H Pulse Oximetry 100 05/07/18 09:00 05/07/18 09:29 05/07/18 10:11 Temperature 98.0 F Pulse Rate 78 78 78 Respiratory Rate 12 15 19 Blood Pressure 153/68 H Pulse Oximetry 100 97 05/07/18 12:00 Temperature 98.5 F Pulse Rate 91 H Respiratory Rate 25 H Blood Pressure 134/63 Pulse Oximetry 98 Intake & Output 05/06/18 05/07/18 05/07/18 18:59 06:59 18:59 Intake Total 0 / 0 Output Total 475 / 475 325 / 325 Balance -475 / -475 -325 / -325 Weight 65 kg Intake: Oral 0 / 0 Output: Urine Amount (Catheter) 475 / 475 325 / 325 Indwelling Urethral Catheter 475 / 475 325 / 325 Other: Date of Last Bowel Movement 05/05/18 05/07/18 # Bowel Movements 1 Narrative: GENERAL: This is a well-nourished, well-developed patient, in no apparent distress. CARDIOVASCULAR: Regular rate and rhythm RESPIRATORY: Clear to auscultation. Breath sounds equal bilaterally. No wheezes , rales, or rhonchi. GASTROINTESTINAL: Abdomen soft, non-tender, nondistended. Normal active bowel sounds MUSCULOSKELETAL: Extremities without clubbing, cyanosis, or edema. NEURO: Alert & Oriented x 3 to person, place, time. Moves all ext x4 - Urinary Catheter Management Straight Cath placed during this visit: yes Reason for continuing: Hourly intake/output Insertion date: 04/27/18 Insertion time: 16:10 Indwelling Urethral Catheter Cath placed during this visit: yes Reason for continuing: Hourly intake/output Insertion date: 04/27/18 Results - Labs CBC & Chem 7: 05/07/18 03:23 05/07/18 03:23 Laboratory Results - last 24 hr 05/07/18 05/07/18 05/07/18 03:23 03:23 03:23 WBC 17.5 H RBC 3.42 L Hgb 11.3 L Hct 34.2 L MCV 100.1 H MCH 33.2 MCHC 33.1 RDW 13.1 Plt Count 411 MPV 8.6 Prelim Diff (Auto) Slide review pending Neut % (Auto) 73.7 H Lymph % (Auto) 17.0 Webster % (Auto) 8.2 H Eos % (Auto) 1.0 Baso % (Auto) 0.1 Neut # (Auto) 12.9 H Lymph # (Auto) 3.0 Webster # (Auto) 1.4 H Eos # (Auto) 0.2 Baso # (Auto) 0.0 WBC Differential . Diff Scan Auto diff confirmed Differential Comment . Sodium 143 Potassium 4.3 Chloride 109 H Carbon Dioxide 25.5 Anion Gap 9 BUN 36 H Creatinine 0.60 Estimated GFR Greater than 89 Random Glucose 121 H Calcium 8.2 L Total Bilirubin 0.3 AST 21 ALT 15 Alkaline Phosphatase 44 L B-Natriuretic Peptide 2292 H Total Protein 6.0 L D Albumin 2.1 L Microbiology 05/01/18 15:43 Blood - Peripheral Aerobic Blood Culture - Final No growth in 5 days 05/01/18 15:43 Blood - Peripheral Anaerobic Blood Culture - Final No growth in 5 days 05/01/18 15:38 Blood - Peripheral Aerobic Blood Culture - Final No growth in 5 days 05/01/18 15:38 Blood - Peripheral Anaerobic Blood Culture - Final No growth in 5 days Assessment and Plan - Assessment (1) Altered mental status Code(s): R41.82 - Altered mental status, unspecified Status: Acute (2) Pulmonary edema Code(s): J81.1 - Chronic pulmonary edema Status: Acute (3) Atrial fibrillation Code(s): I48.91 - Unspecified atrial fibrillation Status: Chronic (4) Chronic back pain Code(s): M54.9 - Dorsalgia, unspecified; G89.29 - Other chronic pain Status: Acute (5) COPD (chronic obstructive pulmonary disease) Code(s): J44.9 - Chronic obstructive pulmonary disease, unspecified Status: Acute (6) Bipolar disorder Code(s): F31.9 - Bipolar disorder, unspecified Status: Acute (7) Hypotension Code(s): I95.9 - Hypotension, unspecified Status: Resolved - Plan Assessment: 72-year-old female with: 1) acute respiratory failureresolved now weaned off of oxygen and satting well on room air. Likely due previously to aspiration pneumonia with possible COPD exacerbation following aspirationcontinue with Levaquin and oxygen as needed. 2)Encephalopathy, suspect previous hypoxia and underlying infection sepsis now improved and resolving 3)Aspiration pneumoniacontinue with Levaquin 4)COPD with possible exacerbation following aspirationcontinue with bronchodilators, Symbicort or Singulair and Solu-Medrol 40 mg IV every [address] Gloria connell pulmonary is following. 5)NSTEMI s/p Cardiac cath 05/01 showed normal coronaries NTG SL PRN for pain, ASA 81mg daily Echo:EF 30%. Distal anteroseptal, apical and distal inferolateral hypokinesis. PAP 50 mmHg. 6)CHF, systolicresume Lasix. 7)Bipolar disordercontinue with Depakote, Venlafaxine ; psychiatry following, 8) seizures-on Kera neurology following 9)Leukocytosis 10) sepsis on presentation with leukocytosis and tachycardia04/28 blood cultures group C beta strepcurrently on Levaquin, ID Dr. Casey following. GI and DVT prophylaxis: Protonix/SCDs/Heparin SQ 11) Deconditioning - PT (1) Altered mental status Qualifiers: Altered mental status type: disorientation Qualified Code(s): R41.0 - Disorientation, unspecified (2) Pulmonary edema Qualifiers: Chronicity: acute Qualified Code(s): J81.0 - Acute pulmonary edema
[2018-05-07] MEDS ORDERED: levoFLOXacin 750 MG Tablet PO SCH (17:00)
--- NOTE | 2018-05-07 19:22 | P.PNPL ---
Subjective Interval history: 72 YOWF with Br asthma, COPD, Bipolar disorder, AM On Levaquin,Flagyl and Azactem Weaned to RA more cooperative today Physical Exam Vital signs: Vital Signs 05/06/18 20:00 05/07/18 00:00 05/07/18 04:00 Temperature 98.9 F 98.5 F 98.8 F Pulse Rate 99 H 81 79 Respiratory Rate 13 21 12 Blood Pressure 144/67 H 154/74 H 144/65 H Pulse Oximetry 100 100 100 05/07/18 07:00 05/07/18 08:00 05/07/18 09:00 Temperature Pulse Rate 76 78 Respiratory Rate 12 13 12 Blood Pressure Pulse Oximetry 05/07/18 09:29 05/07/18 10:11 05/07/18 12:00 Temperature 98.0 F 98.5 F Pulse Rate 78 78 91 H Respiratory Rate 15 19 13 Blood Pressure 153/68 H 134/63 Pulse Oximetry 100 97 98 05/07/18 16:00 05/07/18 18:37 Temperature 98.8 F Pulse Rate 90 Respiratory Rate 13 20 Blood Pressure 136/63 Pulse Oximetry 94 L Intake & Output 05/07/18 05/07/18 05/08/18 06:59 18:59 06:59 Output Total 325 / 325 850 / 850 Balance -325 / -325 -850 / -850 Weight 65 kg Output: Urine Amount (Catheter) 325 / 325 850 / 850 Indwelling Urethral Catheter 325 / 325 850 / 850 Other: Date of Last Bowel Movement 05/07/18 05/06/18 # Bowel Movements 1 GENERAL: Elderly WF,NAD SKIN: Warm and dry. HEAD: Normocephalic. EYES: No scleral icterus. No injection or drainage. NECK: Supple, trachea midline. No JVD or lymphadenopathy. CARDIOVASCULAR: Regular rate and rhythm without murmurs, gallops, or rubs. RESPIRATORY: Breath sounds equal bilaterally. No accessory muscle use. GASTROINTESTINAL: Abdomen soft, non-tender, nondistended. MUSCULOSKELETAL: No cyanosis, or edema. BACK: Nontender without obvious deformity. No CVA tenderness. - Urinary Catheter Management Straight Cath placed during this visit: yes Reason for continuing: Hourly intake/output Insertion date: 04/27/18 Insertion time: 16:10 Indwelling Urethral Catheter Cath placed during this visit: yes Reason for continuing: Hourly intake/output Insertion date: 04/27/18 Assessment and Plan - Plan IMPRESSION: 1. Pulmonary edema is significantly better. 2. COPD/bronchial asthma. 3. Altered mental status is improving. 4. Chronic pain. 5. Congestive heart failure. 6. Bipolar disorder. 7. Resp failure 7. Aspiration PLAN: Supplement 02 Cont Abx Aerosol nebs Symbicort 2 puffs bid Stable fto tr to floor from pulm standpoint
[2018-05-07] MEDS: Divalproex 500 MG ER Tablet PO SCH (20:46)
[2018-05-08] MEDS: Levothyroxine 75 MCG Tablet PO SCH (06:20)
[2018-05-08] MEDS: Venlafaxine XR 75 MG Capsule PO SCH (11:40)
[2018-05-08] MEDS: Acyclovir 200 MG Capsule PO SCH (11:40)
[2018-05-08] MEDS: Montelukast 10 MG Tablet PO SCH (11:40)
[2018-05-08] MEDS: Estradiol 1 MG Tablet PO SCH (11:40)
[2018-05-08] MEDS: dilTIAZem CD 180 MG Capsule PO SCH (11:41)
[2018-05-08] MEDS: Docusate Sodium 100 MG Capsule PO SCH (11:41)
[2018-05-08] MEDS: Heparin - SQ 10,000 UNITS/ML Vial SQ SCH (11:42)
[2018-05-08] MEDS: guaiFENesin 600 MG ER Tablet PO SCH (11:43)
[2018-05-08] MEDS: Furosemide 20 MG Tablet PO SCH (11:44)
[2018-05-08] MEDS: Psyllium Fiber SF/GF 6 GM Packet PO SCH (11:44)
[2018-05-08] MEDS: levETIRAcetam 500 MG Tablet PO SCH (11:44)
[2018-05-08] MEDS: Budesonide-Formoterol 160/4.5 MCG 6 GM Inhaler INH SCH (11:45)
--- NOTE | 2018-05-08 11:45 | P.PNIM ---
Subjective Interval history: Was open to go to rehab. Not short of breath. Physical Exam Vital signs: Vital Signs 05/07/18 12:00 05/07/18 16:00 05/07/18 18:37 Temperature 98.5 F 98.8 F Pulse Rate 91 H 90 Respiratory Rate 13 13 20 Blood Pressure 134/63 136/63 Pulse Oximetry 98 94 L 05/07/18 20:00 05/07/18 20:36 05/08/18 00:00 Temperature 98.8 F 98.6 F Pulse Rate 97 H 86 Respiratory Rate 21 23 Blood Pressure 133/60 145/80 H Pulse Oximetry 95 95 94 L 05/08/18 04:00 05/08/18 08:00 Temperature 97.9 F 98.4 F Pulse Rate 92 H 80 Respiratory Rate 19 18 Blood Pressure 132/64 115/69 Pulse Oximetry 99 100 Intake & Output 05/07/18 05/08/18 05/08/18 18:59 06:59 18:59 Output Total 850 / 850 500 / 500 Balance -850 / -850 -500 / -500 Weight 63.4 kg Output: Urine Amount (Catheter) 850 / 850 500 / 500 Indwelling Urethral Catheter 850 / 850 500 / 500 Other: Date of Last Bowel Movement 05/06/18 05/07/18 05/07/18 # Incontinent Bowel Movements 2 Narrative: GENERAL: This is a well-nourished, well-developed patient, in no apparent distress. CARDIOVASCULAR: Regular rate and rhythm RESPIRATORY: Relatively clear GASTROINTESTINAL: Abdomen soft, non-tender, nondistended. Normal active bowel sounds MUSCULOSKELETAL: Extremities without clubbing, cyanosis, or edema. NEURO: Alert & Oriented x 2 to person, place. Moves all ext x4 - Urinary Catheter Management Straight Cath placed during this visit: yes Reason for continuing: Hourly intake/output Insertion date: 04/27/18 Insertion time: 16:10 Indwelling Urethral Catheter Cath placed during this visit: yes Reason for continuing: Hourly intake/output Insertion date: 04/27/18 Results - Labs CBC & Chem 7: 05/07/18 03:23 05/07/18 03:23 Assessment and Plan - Assessment (1) Altered mental status Code(s): R41.82 - Altered mental status, unspecified Status: Acute (2) Pulmonary edema Code(s): J81.1 - Chronic pulmonary edema Status: Acute (3) Atrial fibrillation Code(s): I48.91 - Unspecified atrial fibrillation Status: Chronic (4) Chronic back pain Code(s): M54.9 - Dorsalgia, unspecified; G89.29 - Other chronic pain Status: Acute (5) COPD (chronic obstructive pulmonary disease) Code(s): J44.9 - Chronic obstructive pulmonary disease, unspecified Status: Acute (6) Bipolar disorder Code(s): F31.9 - Bipolar disorder, unspecified Status: Acute (7) Hypotension Code(s): I95.9 - Hypotension, unspecified Status: Resolved - Plan Assessment: 72-year-old female with: 1) acute respiratory failureresolved now weaned off of oxygen and satting well on room air. Likely due previously to aspiration pneumonia with possible COPD exacerbation following aspirationcontinue with Levaquin and oxygen as needed. 2)Encephalopathy, suspect previous hypoxia and underlying infection sepsis now improving and resolving 3)Aspiration pneumoniacontinue with Levaquin 4)COPD with possible exacerbation following aspirationcontinue with bronchodilators, Symbicort or Singulair and Solu-Medrol 40 mg IV every 12 hours and be changed to p.o. prednisone. Dr. Funk pulmonary is following. 5)NSTEMI s/p Cardiac cath 05/01 showed normal coronaries NTG SL PRN for pain, ASA 81mg daily Echo:EF 30%. Distal anteroseptal, apical and distal inferolateral hypokinesis. PAP 50 mmHg. 6)CHF, systolicresume Lasix. 7)Bipolar disordercontinue with Depakote, Venlafaxine ; psychiatry following, 8) seizures-on [facility]era neurology following 9)Leukocytosis 10) sepsis on presentation with leukocytosis and tachycardia04/28 blood cultures group C beta strepcurrently on Levaquin, ID Dr. Casey following. GI and DVT prophylaxis: Protonix/SCDs/Heparin SQ 11) Deconditioning - PT Transfer to the floor. Discharge Planning: May need rehab placement versus home health care (1) Altered mental status Qualifiers: Altered mental status type: disorientation Qualified Code(s): R41.0 - Disorientation, unspecified (2) Pulmonary edema Qualifiers: Chronicity: acute Qualified Code(s): J81.0 - Acute pulmonary edema
--- NOTE | 2018-05-08 13:36 | P.DS ---
Date of admission: 04/27/18 16:31 Primary care physician: UNKNOWN Anticipated date of discharge: 05/08/18 Brief History from admission: This is a 72 yo female patient with a medical history significant for bipolar disorder, COPD, heart failure, and chronic back pain on an intrathecal morphine pump. The patient and presented to ER with concern for AMS x 3 days. Patient is only able to provide a limited amount of history. Patient states that her pump had been being adjusted as an outpatient. Per ER physician who spoke with the , there is no concern or suspicion of overdose. There is no history of alcohol or drug abuse. Per ER physician ammonia was found to be elevated as an outpatient so the lithium was being weaned off. Patient was hypotensive on admission and was given several boluses of IV fluids. She later developed some pulmonary edema with some shortness of breath. She received 40 mg of IV Lasix. She was hep-locked. Patient currently reports that she feels well except for having back pain. She denies shortness of breath or chest pain. Her is not here currently, she reports that he knows names of all her medications. Per nursing report on arrival to the ER patient was noted to exhibit some tremors. Concern was for seizure. Patient is on seizure precautions. Per review of EMR, patient presented similarly in November with altered mental status and hypotension. Patient was also found to be bradycardic at that time likely to due to her high doses of antiarrhythmics. DS: Diagnosis - Discharge Diagnosis (1) Acute respiratory failure Status: Acute (2) Altered mental status Status: Resolved Diagnosis: Secondary (3) Pulmonary edema Status: Resolved Diagnosis: Secondary (4) Atrial fibrillation Status: Chronic Diagnosis: Secondary (5) Chronic back pain Status: Chronic Diagnosis: Secondary (6) COPD (chronic obstructive pulmonary disease) Status: Chronic Diagnosis: Secondary (7) Bipolar disorder Status: Chronic Diagnosis: Secondary (8) Hypotension Status: Resolved Diagnosis: Secondary (9) Hypoxic encephalopathy Status: Resolved Diagnosis: Secondary (10) Systolic CHF Status: Chronic Diagnosis: Secondary (11) Systolic CHF, acute on chronic Status: Resolved Diagnosis: Secondary (12) NSTEMI (non-ST elevated myocardial infarction) Status: Resolved Diagnosis: Secondary DS: Summary Hospital Course: These are the medical issues addressed during this hospitalization: 72-year-old female with: 1) acute respiratory failure due to aspiration pneumonia and acute on chronic systolic congestive heart failure and pulmonary edema. Bumex and Lasix also given during the hospitalizationinitially was transfer intensive care unit and placed on BiPAP of 55% FiO2. Resolved now weaned off of oxygen and satting well on room air. Likely due previously to aspiration pneumonia with possible COPD exacerbation following aspirationcontinue with Levaquin and oxygen as needed. 2)Encephalopathy, suspect previous hypoxia and underlying infection sepsis now improving and resolving 3)Aspiration pneumoniacontinue with Levaquin 4)COPD with possible exacerbation following aspirationcontinue with bronchodilators, Symbicort or Singulair and Solu-Medrol 40 mg IV every 12 hours and be changed to p.o. prednisone. Dr. Blessing austin is following. 5)NSTEMI s/p Cardiac cath 05/01 showed normal coronaries NTG SL PRN for pain, ASA 81mg daily Echo:EF 30%. Distal anteroseptal, apical and distal inferolateral hypokinesis. PAP 50 mmHg. 6)CHF, systolicresume Lasix. 7)Bipolar disordercontinue with Depakote, Venlafaxine ; psychiatry following, 8) seizures-on [facility] neurology following 9)Leukocytosis due to sepsis and improved during hospitalization. 10) sepsis on presentation with leukocytosis and tachycardia8/5 blood cultures group C beta strepcurrently on Levaquin, ID Dr. Casey following. GI and DVT prophylaxis: Protonix/SCDs/Heparin SQ 11) Deconditioning - PT at this time, patient Has gained maximum benefit from hospitalization and ready to be discharged to inpatient rehab - Time Spent with Patient Total time spent providing and/or coordinating discharge services: Less than 30 minutes - Quality: Stroke Last date observed well: 04/30/18 Last time observed well: 11:00 - Quality: VTE Deep Vein Thrombosis/Pulmonary Embolism Present on Admission: No Exam Vital signs: Vital Signs 05/07/18 16:00 05/07/18 18:37 05/07/18 20:00 Temperature 98.8 F 98.8 F Pulse Rate 90 97 H Respiratory Rate 13 20 21 Blood Pressure 136/63 133/60 Pulse Oximetry 94 L 95 05/07/18 20:36 05/08/18 00:00 05/08/18 04:00 Temperature 98.6 F 97.9 F Pulse Rate 86 92 H Respiratory Rate 23 19 Blood Pressure 145/80 H 132/64 Pulse Oximetry 95 94 L 99 05/08/18 08:00 Temperature 98.4 F Pulse Rate 80 Respiratory Rate 18 Blood Pressure 115/69 Pulse Oximetry 100 Intake & Output 05/07/18 05/08/18 05/08/18 18:59 06:59 18:59 Output Total 850 / 850 500 / 500 Balance -850 / -850 -500 / -500 Weight 63.4 kg Output: Urine Amount (Catheter) 850 / 850 500 / 500 Indwelling Urethral Catheter 850 / 850 500 / 500 Other: Date of Last Bowel Movement 05/06/18 05/07/18 05/07/18 # Incontinent Bowel Movements 2 Narrative: GENERAL: This is a well-nourished, well-developed patient, in no apparent distress. CARDIOVASCULAR: Regular rate and rhythm RESPIRATORY: Relatively clear bilaterally GASTROINTESTINAL: Abdomen soft, non-tender, nondistended. Normal active bowel sounds MUSCULOSKELETAL: Extremities without clubbing, cyanosis, or edema. NEURO: Alert & Oriented x2 to person, place, Moves all ext x4 Results Procedures completed during hospitalization: 05/01 cardiac catheterization - Impressions ITS Impressions Head CTA 04/30/18 00:00 CONCLUSION: 1. No evidence of intraluminal filling defects or steno-occlusive disease. 2. Unremarkable anterior and posterior intracranial circulation 3. No evidence of extracranial carotid or vertebral steno-occlusive disease. Neck CTA 04/30/18 00:00 CONCLUSION: 1. No carotid stenosis. 2. Bilateral upper lobe patchy lung densities. Head CT 04/30/18 11:41 CONCLUSION: 1. No acute intracranial abnormalities. Report was called by [ Dr. Joseph to Dr. Mccarty at 11:57 AM] Chest X-Ray 05/05/18 04:00 CONCLUSION: Stable chest x-ray with bilateral airspace consolidation. Discharge Plan - Discharge Disposition Patient Disposition: 62 Rehab Inpatient - Discharge Condition Condition: Stable - Discharge Order Discharge Orders: Discharge Order (Routine); Ordered 05/08/18 Ordered By: Catarina Barnard - Discharge Details Anticipated Discharge Date: 05/08/18 - Physicians Team Primary Care Provider: UNKNOWN, Attending Provider: Catarina Barnard Other Providers: Reji Ramirez MD ; Laxmi Pickens MD ; Wilmer Jacobs MD ; Catracho Funk MD ; [facility] ; Alistair Serrano MD ; Jose Mccarty MD, PhD ; Sandy Casey MD
[2018-05-08 15:00] VITALS: PULSE 95
[2018-05-08 15:02] VITALS: BP 144/69; RESP 16; TEMP 98.5; O2SAT 97
== END 2018-05-08 15:00 ==
LOC: NEPC 13:10 → NEDA 16:31 → HCIS 18:40 → HCVI 04-30 13:58 → N03 05-03 11:00
PROVIDERS: ADMIT Family Medicine; ATTEND Family Medicine

== ENCOUNTER 2018-05-23 10:51 | Observation (INO) ==
--- NOTE | 2018-05-23 11:24 | MB ---
cc: Shaheed Villafuerte MD DATE: 05/23/2018 REASON FOR CONSULTATION: Tachycardia, abnormal troponin level. HISTORY OF PRESENT ILLNESS: The patient is a 72-year-old white female with a history of recently diagnosed severe nonischemic cardiomyopathy, paroxysmal atrial fibrillation, pericardial effusion status post pericardial window 11/20/2016, hypothyroidism, who yesterday apparently developed tachycardia. The tachycardia unfortunately is not recorded on monitoring strips. By the time an EKG was obtained, the patient had reverted back to sinus rhythm. At the time, the patient states she did have racing palpitations without associated dizziness, syncope, near syncope, chest pain, or shortness of breath. The patient reports progressing well here in cardiac rehabilitation. She denies angina, pedal edema, paroxysmal nocturnal dyspnea, or orthopnea. PAST MEDICAL HISTORY: 1. Bipolar disorder. 2. Hypothyroidism. 3. Moderately severe nonischemic cardiomyopathy diagnosed earlier this month with an ejection fraction of 30% by echo, and with minimal coronary artery disease demonstrated by cardiac catheterization 04/30/2018. 4. Paroxysmal atrial fibrillation October 2016, in the setting of pericardial effusion. 5. 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 CURRENT CARDIAC MEDICATIONS: 1. Aspirin 81 mg p.o. daily. 2. Carvedilol 3.125 mg p.o. b.i.d. 3. Cardizem CD 180 mg p.o. daily. 4. Furosemide 20 mg p.o. daily. 5. Lisinopril 10 mg p.o. daily. 6. Heparin 5000 units subcutaneously every 12 hours. 7. Potassium chloride 20 mEq p.o. daily. ALLERGIES: 1. PENICILLIN. 2. SULFA. 3. LATEX. 4. PIROXICAM. 5. FELDENE. 6. FLEXERIL. 7. VISTARIL. FAMILY HISTORY: Noncontributory. SOCIAL HISTORY: The patient has no history of alcohol or tobacco abuse. REVIEW OF SYSTEMS: As in the history of present illness, otherwise negative or noncontributory. She also denies headache, abdominal pain, melena, dyspepsia, bright red blood per rectum. PHYSICAL EXAMINATION: VITAL SIGNS: Her blood pressure 110/62 with a pulse of 68, respirations 17. GENERAL: She is a well-developed, well-nourished white female, in no acute distress. NECK: Jugular venous pressure is normal. Carotid pulses are 2+ bilaterally and without bruits. CHEST: Reveals clear lungs welch. CARDIAC: She has a regular rhythm and rate without S3, S4, or murmur. ABDOMEN: She has a soft, nontender abdomen. Bowel sounds are present. There is no definite hepatosplenomegaly. EXTREMITIES: Reveals no clubbing, cyanosis, or edema. DIAGNOSTIC DATA: EKG from 05/22/2018 shows sinus rhythm, lateral T-wave inversion, consider ischemia. Chest x-ray from 05/22/2018 shows no acute disease. LABORATORY DATA: Troponin 0.19, WBC 3.7, hemoglobin 11.2, platelets 159. IMPRESSION: Slightly abnormal troponin level, brief episode of tachycardia in this 72-year-old white female with a history of recently diagnosed nonischemic cardiomyopathy, history of paroxysmal atrial fibrillation last year in the setting of a pericardial effusion, history of pericardial window placement. Unfortunately, her episode of tachycardia was not recorded. It is difficult to tell whether it was a supraventricular tachycardia or atrial fibrillation. The patient was mildly symptomatic with the tachycardia. The elevated troponin level may be due to the tachycardia. She was found to have no significant coronary artery disease on cardiac catheterization about 2 weeks ago. There is no evidence for congestive heart failure. From what I can gather, the tachycardia was not wide complex. RECOMMENDATIONS: 1. Move the patient to a monitored floor. 2. Would favor stopping Cardizem and increasing carvedilol dosing. 3. Continue aspirin, JACIEL inhibitor therapy, furosemide. MD DOMENICA Corbett/jackie/nisha , 08:26 AM , 08:35 AM JESSICA
[2018-05-23] MEDS ORDERED: Bisacodyl 10 MG Supp RECTAL PRN (12:45)
[2018-05-23] MEDS ORDERED: Acetaminophen 325 MG Tablet PO PRN (12:45)
[2018-05-23] MEDS ORDERED: Melatonin 5 MG Tablet PO PRN (12:51)
[2018-05-23] MEDS ORDERED: Nitroglycerin SL (Override) 0.4 MG Tab SL PRN (12:51)
--- NOTE | 2018-05-23 13:21 | P.HP ---
History of Present Illness Service: Hospitalist Primary Care Physician: UNKNOWN Chief Complaint: chest pain, shortness of breath History of Present Illness: This is a 72-year-old female with a past medical history significant for bipolar disorder, chronic pain status post implantation of intrathecal pain pump , COPD, paroxysmal atrial fibrillation, history of pericardial effusion secondary to fibropurulent pericarditis status post pericardiocentesis and subsequent pericardial window 11/20/2016 and heart failure who was admitted earlier this month with altered mental status. She was found to be hypotensive and given a large volume of fluid and then developed pulmonary edema. On the floor, patient became altered and a stroke alert was called. She was found to be hypoxic with oxygen saturation in the 70s. She developed nausea and vomiting and was transferred to the intensive care unit and treated for aspiration pneumonia. She was followed by Dr. Casey infectious disease. She was also followed by neurology as well as pulmonary medicine. Additionally , she was seen in consultation by psychiatry due a history of bipolar disorder and polypharmacy. She had elevated troponins. Echocardiogram was done which revealed a severely reduced EF at 30% and wall abnormalities. She underwent a cardiac catheterization which showed clear coronary arteries. She developed sepsis with group C strep bacteremia felt likely be due to her aspiration pneumonia. Patient was initially treated with IV antibiotics which were de- escalated to oral Levaquin. Patient improved clinically. She was evaluated and accepted for transfer to [facility]. Yesterday while at [place], patient developed complaints of left-sided arm and chest pain with associated palpitations and diaphoresis. She was placed on a monitor and appeared to be in SVT with a rate of about 170-189. EKG was concerning for possible lateral ischemia. Patient's troponins elevated. She was seen in consultation by cardiology who recommended patient be transferred to a monitored floor. At present, patient has no acute medical complaints. She denies any complaints of headache, dizziness, diaphoresis, chest pain, palpitations, nausea, vomiting, shortness of breath or abdominal pain. Inpatient Certification: I certify that the inpatient services were ordered in accordance with Medicare regulations governing the order. This includes certification that hospital inpatient services are reasonable and necessary and in the case of services not specified as inpatient-only under 42 CFR 419.22(n), that they are appropriately provided as inpatient services in accordance to with the 2-midnight benchmark under 43 CFR 412.3(e) Review of Systems All other systems reviewed negative except as stated in HPI PMFSH - History History Provided By: Family Member - Medical History Medical History: Medical History (Last Updated 05/23/18 @ 12:32 by Piper Stevenson) Hypothyroidism (Acute) Nonischemic cardiomyopathy (Acute) Presence of intrathecal pump (Acute) Bipolar 1 disorder (Acute) Atrial fibrillation (Chronic) COPD (chronic obstructive pulmonary disease) (Acute) Back pain (Acute) Asthma (Acute) History of pericarditis Mitral valve prolapse - Surgical History Surgical History: Surgical History (Last Updated 05/23/18 @ 12:32 by Piper Stevenson) Status post pericardiocentesis (Acute) Hx of tonsillectomy (Acute) - Family History Family History: Family History (Last Reviewed 05/23/18 @ 12:29 by Piper Stevenson) Other Patient denies medical problems - Tobacco History Second Hand Smoke Exposure: No Smoking Status: Never smoker - Alcohol History How Often Do You Have a Drink Containing Alcohol: Never - Substance Use History Substance History: No History of Abuse Medications and Allergies Active Medications: Active Medications Acetaminophen (Tylenol) 650 mg PO Q4H PRN PRN Reason: Temp > 100.4 Acyclovir (Zovirax) 400 mg PO DAILY PAULINE Al Hydroxide/Mg Hydroxide (Milk Of Magnesia Liq) 30 ml PO Q12H PRN PRN Reason: Mild Constipation Albuterol (Duoneb Neb (Prn)) 1 ampul NEB Q4HR NEB PRN PRN Reason: SHORTNESS OF BREATH/WHEEZING Aspirin (Ecotrin) 81 mg PO DAILY PAULINE Bisacodyl (Dulcolax Supp) 10 mg RECTAL DAILY PRN PRN Reason: SEVERE CONSITIPATION Budesonide/Formoterol Fumarate (Symbicort 160/4.5 Mcg Inh) 2 puff INH HS PAULINE Carvedilol (Coreg) 6.25 mg PO BID PAULINE Divalproex Sodium (Depakote Dr) 500 mg PO HS PAULINE Estradiol (Estrace) 2 mg PO DAILY PAULINE Furosemide (Lasix) 20 mg PO DAILY PAULINE Guaifenesin (Mucinex Er) 600 mg PO BID PAULINE Heparin Sodium (Porcine) (Heparin Inj) 5,000 units SQ Q12H PAULINE Lactulose (Lactulose Liq) 30 ml PO DAILY PRN PRN Reason: SEVERE CONSITIPATION Levetiracetam (Keppra) 500 mg PO BID [facility] Levothyroxine Sodium (Synthroid) 75 mcg PO DAILY@0600 [facility] Lisinopril (Prinivil) 10 mg PO DAILY [facility] Melatonin (Melatonin) 5 mg PO HS PRN PRN Reason: Insomnia Montelukast Sodium (Singulair) 10 mg PO DAILY [facility] Multivitamins (Theragran) 1 tab PO DAILY [facility] Nitroglycerin (Nitrostat Sl (Override)) 0.4 mg SL Q5M PRN PRN Reason: Chest Pain Ondansetron HCl (Zofran Inj) 4 mg IV.PUSH Q6H PRN PRN Reason: NAUSEA OR VOMITING Pantoprazole Sodium (Protonix) 40 mg PO DAILY [facility] Potassium Chloride (K-Dur) 20 meq PO DAILY [facility] Psyllium Hydrophilic Mucilloid (Metamucil Smooth Texture Sf/Gf Pkt) 1 packet PO BID [facility] Senna/Docusate Sodium (Kaylee-Colace) 1 tab PO BID [facility] Sennosides (Senokot) 17.2 mg PO Q12H PRN PRN Reason: Moderate Constipation Venlafaxine HCl (Effexor Xr) 150 mg PO DAILY [facility] Allergies Allergy/AdvReac Type Severity Reaction Status Date / Time penicillin G Allergy Severe hives Verified 04/27/18 14:10 Sulfa (Sulfonamide Allergy Severe hives Verified 04/27/18 14:10 Antibiotics) latex Allergy Intermediate rash Verified 04/27/18 14:10 piroxicam Allergy Unknown Hives Verified 04/27/18 14:10 cyclobenzaprine AdvReac Intermediate PAU Verified 04/27/18 14:10 hydroxyzine AdvReac Unknown Hives Verified 04/27/18 14:10 Exam Vital signs: Vital Signs 05/23/18 12:00 05/23/18 12:05 Pulse Rate 63 54 L Respiratory Rate 16 Blood Pressure 108/56 L Pulse Oximetry 99 Narrative: GENERAL: WDWN female, not in any acute distress. Awake and alert. Slow but appropriate responses. Partially oriented. SKIN: Warm and dry. HEAD: Atraumatic. Normocephalic. EYES: Pupils equal and round. No scleral icterus. No injection or drainage. ENT: No nasal bleeding or discharge. Mucous membranes pink and moist. NECK: Trachea midline. CARDIOVASCULAR: Regular rate and rhythm. No murmur. RESPIRATORY: No accessory muscle use. Clear to auscultation. Breath sounds equal bilaterally. GASTROINTESTINAL: Abdomen soft, non-tender, nondistended. Hepatic and splenic margins not palpable. MUSCULOSKELETAL: Extremities without clubbing, cyanosis, or edema. No obvious deformities. NEUROLOGICAL: Awake and alert. No obvious cranial nerve deficits. Motor grossly within normal limits. Able to move all extremities spontaneously. Normal speech. PSYCHIATRIC: Calm and cooperative. Flat affect. Caprini VTE Risk Assessment Caprini VTE Risk Assessment: Moderate/High Risk (score >= 2) Caprini Risk Assessment Model: Point Value = 1 Point Value = 2 Point Value = 3 Point Value = 5 Age 41-60 Minor surgery BMI > 25 kg/m2 Swollen legs Varicose veins or History of unexplained or recurrent spontaneous Oral contraceptives or hormone replacement Sepsis (< 1 month) Serious lung disease, including pneumonia (< 1 month) Abnormal pulmonary function Acute myocardial infarction Congestive heart failure (< 1 month) History of inflammatory bowel disease Medical patient at bed rest Age 61-74 Arthroscopic surgery Major open surgery (> 45 min) Laparoscopic surgery (> 45 min) Malignancy Confined to bed (> 72 hours) Immobilizing plaster cast Central venous access Age >= 75 History of VTE Family history of VTE Factor V Leiden Prothrombin [id number] Lupus anticoagulant Anticardiolipin antibodies Elevated serum homocysteine Heparin-induced thrombocytopenia Other congenital or acquired thrombophilia Stroke (< 1 month) Elective arthroplasty Hip, pelvis, or leg fracture Acute spinal cord injury (< 1 month) Prophylaxis Regimen: Total Risk Factor Score Risk Level Prophylaxis Regimen 0-1 Low Early ambulation 2 Moderate Order ONE of the following: *Sequential Compression Device (SCD) *Heparin 5000 units SQ BID 3-4 Higher Order ONE of the following medications: *Heparin 5000 units SQ TID *Enoxaparin/Lovenox 40 mg SQ daily (WT < 150 kg, CrCl > 30 mL/min) *Enoxaparin/Lovenox 30 mg SQ daily (WT < 150 kg, CrCl > 10-29 mL/min) *Enoxaparin/Lovenox 30 mg SQ BID (WT < 150 kg, CrCl > 30 mL/min) AND/OR *Sequential Compression Device (SCD) 5 or more Highest Order ONE of the following medications: *Heparin 5000 units SQ TID (Preferred with Epidurals) *Enoxaparin/Lovenox 40 mg SQ daily (WT < 150 kg, CrCl > 30 mL/min) *Enoxaparin/Lovenox 30 mg SQ daily (WT < 150 kg, CrCl > 10-29 mL/min) *Enoxaparin/Lovenox 30 mg SQ BID (WT < 150 kg, CrCl > 30 mL/min) AND *Sequential Compression Device (SCD) Assessment and Plan - Plan 72yo female with recent NSTEMI, nonischemic cardiomyopathy and paroxysmal atrial fibrillation who developed complaints of chest pain, palpitations and diaphoresis with elevated troponins and tachycardia with EKG changes concerning for lateral ischemia. Elevated troponin, now downward trending Tachycardia Recent NSTEMI History of paroxysmal atrial fibrillation Patient currently has no cardiac complaints -Consult cardiology, appreciate assistance. Patient seen by Dr. Villafuerte while at [place]. Per his recommendations, we will not resume patient's Cardizem but instead increase her Coreg dose to 6.25 mg twice daily. Per Dr. Villafuerte, monitor on telemetry x 24hrs then may be transferred back to [place]. -Continuous cardiac monitoring -Aspirin 81 mg daily Nonischemic cardiomyopathy Systolic CHF, no evidence of acute decompensation History of pericardial effusion secondary to fibropurulent pericarditis, status post pericardiocentesis and subsequent pericardial window 11/20/2016 2D echo revealing severely reduced EF at 30% and near global hypokinesis and moderate aortic regurgitation Patient appears euvolemic -Continue patient on beta-hunter and JACIEL -Monitor for signs of fluid overload Recent treatment for aspiration pneumonia Recent acute respiratory failure COPD, not in acute exacerbation -Monitor respiratory status -Continue bronchodilator therapy -Duonebs prn -Supplemental oxygen as needed Hx of recent sepsis and strep bacteremia Patient completed treatment -Monitor Bipolar disorder Seizure disorder Hypoxic Encephalopathy -Continue patient on Depakote, Effexor and Keppra -Seizure precautions -Consult ST Hypothyroidism -Continue patient on home dose of levothyroxine Chronic back pain History of implantation of intrathecal morphine pain pump History of nonfunctioning spinal cord stimulator -Consult PT -fall precautions Impaired mobility and activity of daily living Deconditioned -Consult rehab medicine DVT prophylaxis -Heparin subcu Code Status: FULL Discussed Condition With: Patient, Dr. Brito, Dr. Lopez, nursing staff
[2018-05-23] MEDS: Heparin - SQ 10,000 UNITS/ML Vial SQ SCH (15:12)
[2018-05-23] MEDS ORDERED: Budesonide-Formoterol 160/4.5 MCG 6 GM Inhaler INH SCH (21:00)
[2018-05-23] MEDS ORDERED: Divalproex 500 MG DR Tablet PO SCH (21:00)
[2018-05-23] MEDS: Carvedilol 6.25 MG Tablet PO SCH (22:03)
[2018-05-23] MEDS: levETIRAcetam 500 MG Tablet PO SCH (22:13)
[2018-05-23] MEDS: guaiFENesin 600 MG ER Tablet PO SCH (22:13)
[2018-05-23] MEDS: Senna/Docusate Sodium 8.6/50 MG Tablet PO SCH (22:13)
[2018-05-23] MEDS: Psyllium Fiber SF/GF 6 GM Packet PO SCH (22:14)
[2018-05-24] MEDS: Heparin - SQ 10,000 UNITS/ML Vial SQ SCH (02:10)
[2018-05-24] MEDS ORDERED: Levothyroxine 75 MCG Tablet PO SCH (06:00)
[2018-05-24 07:34] LABS: Baso % (Auto) 1.2 % (0.0-2.0); Eos # (Auto) 0.3 th/mm3 (0.0-0.4); Eos % (Auto) 7.8 % (0.0-4.0); Hematocrit 31.8 % (35.0-46.0); Hemoglobin 10.6 gm/dL (11.6-15.3); Lymph # (Auto) 1.3 th/mm3 (1.0-4.8); Lymph % (Auto) 31.1 % (9.0-44.0); Mean Corpuscular HGB Conc 33.2 % (32.0-36.0); Mean Corpuscular Hemoglobin 33.8 pg (27.0-34.0); Mean Corpuscular Volume 101.7 fL (80.0-100.0); Mean Platelet Volume 9.8 fL (7.0-11.0); Mono # (Auto) 0.5 th/mm3 (0.0-0.9); Mono % (Auto) 11.9 % (0.0-8.0); Platelet Count 147 th/mm3 (150-450); Red Blood Count 3.13 mil/mm3 (4.00-5.30); Red Cell Distribution Width 13.7 % (11.6-17.2); White Blood Count 4.2 th/mm3 (4.0-11.0)
[2018-05-24 08:10] LABS: Albumin 2.6 g/dL (3.4-5.0); Anion Gap 7 meq/L (5-15); Aspartate Aminotransferase 6 U/L (15-37); Blood Urea Nitrogen 14 mg/dL (7-18); Calcium 8.8 mg/dL (8.5-10.1); Carbon Dioxide 32.1 meq/L (21.0-32.0); Chloride 102 meq/L (98-107); Glomerular Filtration Rate Greater Than 89 mL/min (>89); Glucose,Random 76 mg/dL (74-106); Magnesium 2.1 mg/dL (1.5-2.5); Potassium 4.7 meq/L (3.5-5.1); Sodium 141 meq/L (136-145)
--- NOTE | 2018-05-24 08:15 | P.PNCA ---
Subjective Interval history: Denies CP, dyspnea, dizziness, PND, palpitations. Physical Exam Vital signs: Vital Signs 05/23/18 12:00 05/23/18 12:05 05/23/18 15:00 Temperature Pulse Rate 63 54 L 58 L Respiratory Rate 16 Blood Pressure 108/56 L Pulse Oximetry 99 05/23/18 16:00 05/23/18 17:00 05/23/18 18:00 Temperature 97.7 F Pulse Rate 60 71 74 Respiratory Rate 17 Blood Pressure 136/55 L Pulse Oximetry 98 05/23/18 19:00 05/23/18 20:00 05/23/18 21:00 Temperature 98.1 F Pulse Rate 68 71 74 Respiratory Rate 16 Blood Pressure 97/51 L Pulse Oximetry 98 05/23/18 22:00 05/23/18 23:00 05/24/18 00:00 Temperature Pulse Rate 68 66 68 Respiratory Rate 16 Blood Pressure Pulse Oximetry 98 05/24/18 04:00 05/24/18 07:00 Temperature Pulse Rate 58 L 58 L Respiratory Rate 16 Blood Pressure Pulse Oximetry 99 Intake & Output 05/23/18 05/24/18 05/24/18 18:59 06:59 18:59 Intake Total 120 / 120 240 / 240 Output Total 500 / 500 1000 / 1000 Balance -380 / -380 -760 / -760 Weight 58 kg Intake: Oral 120 / 120 240 / 240 Output: Urine 500 / 500 1000 / 1000 Other: Date of Last Bowel Movement 05/22/18 - Constitutional no acute distress - Routine Neck Exam Absent: JVD - Routine Respiratory Exam Present: CTA bilaterally - Routine Cardiovascular Exam Present: RRR, S1, S2. Absent: murmur, gallop - Routine Abdominal Exam Present: soft, normoactive bowel sounds. Absent: tenderness - Routine Extremities Exam Absent: cyanosis, clubbing, edema Assessment and Plan - Assessment (1) Tachycardia Code(s): R00.0 - Tachycardia, unspecified Status: Acute Plan: Monitoring stable overnight. No further tachycardia. Recommend continue increased dose of beta hunter as her BP's tolerate. OK to transfer back to rehab late this morning. (2) Elevated troponin Code(s): R74.8 - Abnormal levels of other serum enzymes Status: Acute Plan: Minimal troponin elevation, likely not due to ACS. No significant CAD seen on recent cath. Slight elevation in troponin possibly due to her tachyarrhythmia. (3) Nonischemic cardiomyopathy Code(s): I42.8 - Other cardiomyopathies Status: Chronic Plan: EF reportedly 30% with minimal CAD on recent cath. Patient compensated. No acute CHF. Recommend continue beta hunter, JACIEL-I, diuretic, recheck echo in about 8 weeks. (4) Paroxysmal atrial fibrillation Code(s): I48.0 - Paroxysmal atrial fibrillation Status: Acute Plan: No definite recurrences. Unclear if tachycardia in rehab atrial fib, apparently was felt to be SVT. Her atrial fib last year was in the setting of acute fibropurulent pericarditis, pericardial effusion. Continue beta hunter, aspirin. - Plan Code Status: full code Discussed Condition With: patient
[2018-05-24 08:28] LABS: Alanine Aminotransferase 15 U/L (10-53); Alkaline Phosphatase 37 U/L (45-117); Total Protein 6.2 g/dL (6.4-8.2)
[2018-05-24] MEDS: levETIRAcetam 500 MG Tablet PO SCH (08:41)
[2018-05-24] MEDS: Carvedilol 6.25 MG Tablet PO SCH (08:42)
[2018-05-24] MEDS: Psyllium Fiber SF/GF 6 GM Packet PO SCH (08:43)
[2018-05-24] MEDS: guaiFENesin 600 MG ER Tablet PO SCH (08:43)
[2018-05-24] MEDS: Senna/Docusate Sodium 8.6/50 MG Tablet PO SCH (08:44)
[2018-05-24] MEDS ORDERED: Lisinopril 10 MG Tablet PO SCH (09:00)
[2018-05-24] MEDS ORDERED: Montelukast 10 MG Tablet PO SCH (09:00)
[2018-05-24] MEDS ORDERED: Furosemide 20 MG Tablet PO SCH (09:00)
[2018-05-24] MEDS ORDERED: Estradiol 1 MG Tablet PO SCH (09:00)
[2018-05-24] MEDS ORDERED: Acyclovir 200 MG Capsule PO SCH (09:00)
[2018-05-24] MEDS ORDERED: Venlafaxine XR 75 MG Capsule PO SCH (09:00)
[2018-05-24 09:49] VITALS: RESP 18
--- NOTE | 2018-05-24 10:45 | P.PN ---
Subjective Interval history: Follow-up tachycardia May 24, 2018-patient is without any complaint of chest pain or shortness of breath. Vital stable. Cleared by cardiology for discharge back to [facility] Physical Exam Vital signs: Vital Signs 05/23/18 12:00 05/23/18 12:05 05/23/18 15:00 Temperature Pulse Rate 63 54 L 58 L Respiratory Rate 16 Blood Pressure 108/56 L Pulse Oximetry 99 05/23/18 16:00 05/23/18 17:00 05/23/18 18:00 Temperature 97.7 F Pulse Rate 60 71 74 Respiratory Rate 17 Blood Pressure 136/55 L Pulse Oximetry 98 05/23/18 19:00 05/23/18 20:00 05/23/18 21:00 Temperature 98.1 F Pulse Rate 68 71 74 Respiratory Rate 16 Blood Pressure 97/51 L Pulse Oximetry 98 05/23/18 22:00 05/23/18 23:00 05/24/18 00:00 Temperature Pulse Rate 68 66 68 Respiratory Rate 16 Blood Pressure Pulse Oximetry 98 05/24/18 04:00 05/24/18 07:00 05/24/18 08:00 Temperature 97.8 F Pulse Rate 58 L 58 L 69 Respiratory Rate 16 18 Blood Pressure 133/68 Pulse Oximetry 99 97 05/24/18 08:43 05/24/18 09:00 05/24/18 10:00 Temperature Pulse Rate 62 75 Respiratory Rate Blood Pressure Pulse Oximetry 95 Intake & Output 05/23/18 05/24/18 05/24/18 18:59 06:59 18:59 Intake Total 120 / 120 240 / 240 Output Total 500 / 500 1000 / 1000 Balance -380 / -380 -760 / -760 Weight 58 kg Intake: Oral 120 / 120 240 / 240 Output: Urine 500 / 500 1000 / 1000 Other: Date of Last Bowel Movement 05/22/18 05/22/18 Narrative: GENERAL: NAD SKIN: Warm and dry. HEAD: Normocephalic. EYES: No scleral icterus. No injection or drainage. NECK: Supple, trachea midline. No JVD or lymphadenopathy. CARDIOVASCULAR: Regular rate and rhythm without murmurs, gallops, or rubs. RESPIRATORY: Breath sounds equal bilaterally. No accessory muscle use. GASTROINTESTINAL: Abdomen soft, non-tender, nondistended. MUSCULOSKELETAL: No cyanosis, or edema. BACK: Nontender without obvious deformity. No CVA tenderness. Results - Labs CBC & Chem 7: 05/24/18 06:36 05/24/18 06:56 Laboratory Results - last 24 hr 05/24/18 05/24/18 06:36 06:56 WBC 4.2 RBC 3.13 L Hgb 10.6 L Hct 31.8 L MCV 101.7 H MCH 33.8 MCHC 33.2 RDW 13.7 Plt Count 147 L MPV 9.8 Neut % (Auto) 48.0 Lymph % (Auto) 31.1 [place] % (Auto) 11.9 H Eos % (Auto) 7.8 H Baso % (Auto) 1.2 Neut # (Auto) 2.0 Lymph # (Auto) 1.3 [place] # (Auto) 0.5 Eos # (Auto) 0.3 Baso # (Auto) 0.0 WBC Differential . Differential Comment Auto diff final Sodium 141 Potassium 4.7 Chloride 102 Carbon Dioxide 32.1 H Anion Gap 7 BUN 14 Creatinine 0.48 L Estimated GFR Greater than 89 Random Glucose 76 Calcium 8.8 Magnesium 2.1 Total Bilirubin 0.2 AST 6 L ALT 15 Alkaline Phosphatase 37 L Total Protein 6.2 L Albumin 2.6 L Assessment and Plan - Plan Elevated troponin Tachycardia Nonischemic cardiomyopathy Paroxysmal atrial fibrillation Continue with Coreg 6.25 mg twice daily Aspirin 81 mg daily Continue as well with JACIEL inhibitor, diuretic. Recommend repeat 2D echo in 8 weeks Appreciate input from cardiology Recent treatment for aspiration pneumonia Recent acute respiratory failure COPD, not in acute exacerbation Continue bronchodilator therapy Hx of recent sepsis and strep bacteremia Patient completed treatment Bipolar disorder Seizure disorder Hypoxic Encephalopathy Continue patient on Depakote, Effexor and Keppra Hypothyroidism Continue levothyroxine Chronic back pain History of implantation of intrathecal morphine pain pump History of nonfunctioning spinal cord stimulator PT to treat and eval Impaired mobility and activity of daily living Deconditioned Discharge back to [facility] DVT prophylaxis -Heparin subcu Discharge patient to [facility] Condition on discharge: Improved Regular Diet as tolerated Ad Veena activity Rx written:see EMR Follow-up with primary care physician
[2018-05-24 11:50] VITALS: BP 94/47; PULSE 72; TEMP 97.9; O2SAT 98
== END 2018-05-24 12:46 ==
LOC: INTOOBSV 11:14 → HCIS 11:14 → UNDODISOB 05-24 12:12
PROVIDERS: ADMIT Hospitalist; ATTEND Hospitalist